=== PATIENT | female | born 1950 | race Caucasian/White ===

== ENCOUNTER 2019-03-06 19:44 | Inpatient (IN) ==
--- OUTSIDE RECORDS SUMMARY | 2019-03-06 19:47 | External Medical Summary | Continuity of Care Document ---
:1950 Author Name Everett Camilo, Provider Address Unavailable Unavailable , Care Team Providers Name Role Phone Unavailable Unavailable Unavailable PCP, NO Unavailable Unavailable Problems Active medical history not documented Allergies and Adverse Reactions Allergy history not documented Medications Medications not documented Procedures Procedures not documented Immunizations Immunizations not documented Plan of Treatment Planned Observations Planned Goals not documented Results No Known Results Results not documented
[2019-03-06 20:27] LABS: Basophils # (auto) 0.02 K/uL (0-0.2); Basophils % (auto) 0.3 %; Eosinophils # (auto) 0.07 K/uL (0-0.5); Eosinophils % (auto) 1.1 %; Hematocrit (blood only) 41.8 % (37-47); Hemoglobin 14.3 g/dL (12.0-16.0); Immature Granulocytes # (auto) 0.01 K/uL (0.00-0.02); Immature Granulocytes % (auto) 0.2 %; Lymphocytes # (auto) 0.47 K/uL (1.2-3.4); Lymphocytes % (auto) 7.1 %; Mean Corpuscular Hgb Conc 34.2 g/dL (32-36); Mean Corpuscular Volume 91.1 fL (80-100); Mean Platelet Volume 10.2 fL (7.4-10.4); Monocytes # (auto) 0.71 K/uL (0.11-0.59); Monocytes % (auto) 10.7 %; Neutrophils # (auto) 5.37 K/uL (1.4-6.5); Neutrophils % (auto) 80.6 %; Platelet Count 193 K/uL (130-400); RDW Coefficient of Variation 14.5 % (11.5-14.5); RDW Standard Deviation 48.4 fL (36.4-46.3); Red Blood Count 4.59 M/uL (4.2-5.4); White Blood Count 6.65 K/uL (4.8-10.8)
[2019-03-06 20:43] LABS: BUN Creatinine Ratio 9.7 (10-20); Blood Urea Nitrogen 8 mg/dl (7-18); Calcium 8.9 mg/dl (8.5-10.1); Carbon Dioxide 26 mmol/L (21-32); Chloride 103 mmol/L (98-107); Est GFR (African American) 84.6; Glucose 119 mg/dl (70-99); Potassium 3.5 mmol/L (3.5-5.1); Sodium 136 mmol/L (136-145)
[2019-03-06 21:05] LABS: Partial Thromboplastin Ratio 2.1; Prothrombin Time 61.3 Seconds (9.0-12.0)
[2019-03-06 21:08] LABS: INR 6.9 (0.9-1.1)
[2019-03-06 21:09] LABS: Partial Thromboplastin Time 56.4 Seconds (21.0-31.0)
[2019-03-06] MEDS ORDERED: IOVERSOL 100ml IV PRN (21:21)
--- NOTE | 2019-03-06 21:28 | XRay Report ---
XR chest 1V portable HISTORY: fall on coumadin COMPARISON: Chest 05/29/2011. FINDINGS: The lungs are clear. Cardiac silhouette is normal in size. No pleural effusions. No pneumot horax. IMPRESSION: No acute process. Electronically signed by: Brock Moore M.D. 03/06/2019 9:27 PM
--- NOTE | 2019-03-06 21:32 | XRay Report ---
XR lumbar spine min 4V routine CLINICAL HISTORY: fall. Low back pain. COMPARISON STUDY: None. FINDINGS: Moderate endplate compression deformity at L4 demonstrating up to 50% loss of height. There is mild superior endplate compression deformities at L1 and L2 as well as the visualized lower thora cic spine from T10 through T12. The lower lumbar spine facets are fused. The sacrum appears intact. G rade 1 anterolisthesis of L5 on S1. Mild disc space narrowing at L5-S1. IMPRESSION: Multiple compression deformities within the lower thoracic and lumbar spine as described above. These are technically age indeterminate but favor chronic findings. Electronically signed by: Brock Moore M.D. 03/06/2019 9:30 PM
--- NOTE | 2019-03-06 21:33 | XRay Report ---
XR pelvis 1-2V routine, XR femur LT 2V routine CLINICAL HISTORY: fall. Left hip pain. COMPARISON STUDY: None. FINDINGS: No fracture or dislocation within the pelvis or hips. The sacrum appears intact. The bones are osteopenic. No left knee effusion. No fractures within the left femur. Soft tissues are unremarka ble. IMPRESSION: No fracture or dislocation within the pelvis, hips, or left femur. Electronically signed by: Brock Moore M.D. 03/06/2019 9:32 PM
--- NOTE | 2019-03-06 21:34 | XRay Report ---
LEFT ELBOW 3 VIEWS HISTORY: Left elbow pain. fall COMPARISON: None. FINDINGS: There is no fracture or dislocation. Soft tissues are unremarkable. No elbow effusion. No r adiopaque foreign bodies. IMPRESSION: No fractures. Electronically signed by: Brock Moore M.D. 03/06/2019 9:33 PM
--- NOTE | 2019-03-06 21:36 | CT Scan Report ---
HEAD CT NONCONTRAST CT DOSE: HISTORY: fall on coumadin TECHNIQUE: Multiaxial CT images of the head were performed without the use of intravenous contrast. A utomated exposure control was utilized for this study. A dose lowering technique was utilized adheri ng to the principles of ALARA. Comparison: Head CT 11/25/2011. Findings: The paranasal sinuses and mastoid air cells are clear. The calvarium and skull base are int act. The ventricles and sulci are within normal limits. There is no mass, hematoma, midline shift, or acute infarct. Impression: No acute intracranial abnormality. Electronically signed by: Brock Moore M.D. 03/06/2019 9:35 PM
--- NOTE | 2019-03-06 21:40 | CT Scan Report ---
CERVICAL SPINE CT CT DOSE: 2472.60 mGy.cm HISTORY: fall on coumadin TECHNIQUE: Multiaxial CT images of the cervical spine were performed and reformatted in the sagittal and coronal plane without the use of contrast. A dose lowering technique was utilized adhering to th e principles of ALARA. COMPARISON: None. FINDINGS: No fractures. No subluxation. Prevertebral soft tissues and the C1-C2 interval are intact. No pneumothorax. Mild disc space narrowing at C4-C5. Moderate disc space narrowing at C5-C6 and C6-C7 . IMPRESSION: No fractures within the cervical spine. Electronically signed by: Brock Moore M.D. 03/06/2019 9:39 PM
--- NOTE | 2019-03-06 21:53 | CT Scan Report ---
ABDOMEN AND PELVIS CT WITH IV CONTRAST CT DOSE: HISTORY: fall on coumadin L flank bruising TECHNIQUE: Multiaxial CT images of the abdomen and pelvis were performed following the use of intrave nous contrast. A dose lowering technique was utilized adhering to the principles of ALARA. COMPARISON STUDY: Abdomen and pelvis CT 01/05/2009. FINDINGS: Moderate superior endplate compression deformity at L4 and mild superior endplate compressi on deformities at T11-L2. These are technically age indeterminate but favor old compression deformiti es. There is no paravertebral soft tissue swelling. A few bibasilar linear densities consistent with subsegmental atelectasis. No pneumoperitoneum. No pneumatosis. Mildly displaced left posterior 12th r ib fracture. The gallbladder, spleen, adrenal glands, and left kidney are unremarkable. Mild right pe rinephric fat stranding with heterogeneous enhancement within the right kidney. There is also urothel ial thickening within the right renal pelvis and right ureter. No hydronephrosis. There is mild bladd er wall thickening with adjacent fat stranding. Therefore, these findings are consistent with a cysti tis and right-sided pyelonephritis. There are a few small hypodense lesions within the liver which ar e similar to the prior study. These likely represent cysts. No retroperitoneal lymphadenopathy. Samantha l caliber abdominal aorta. There are 3 subcentimeter hyperenhancing foci within the tail the pancreas best seen on images 113, 120, and 126 with the largest measuring 5 mm. These are indeterminate and c ould represent normal pancreatic parenchyma. Subcentimeter pancreatic lesions could also have a simil ar appearance. Mild pelvic floor collapse. The uterus and bilateral adnexa are unremarkable. No bowel wall thickening or obstruction. Colonic diverticulosis. No evidence for diverticulitis. Normal appen sary. IMPRESSION: 1. A mildly displaced left 12th posterior rib fracture. 2. Right-sided pyelonephritis with an associated cystitis.. 3. There are 3 subcentimeter hyperenhancing foci within the tail the pancreas with the largest measur ing 5 mm. These are indeterminate but favor normal pancreatic parenchyma. However, subcentimeter panc reatic lesions are not excluded. Follow-up nonemergent pancreatic MRI is recommended for further eval uation. 4. Old compression deformities within the lower thoracic and lumbar spine. Electronically signed by: Brock Moore M.D. 03/06/2019 9:50 PM
[2019-03-06] MEDS ORDERED: cefTRIAXone SODIUM 1,000 MG/50 ML BAG IV STA (22:02)
[2019-03-06 22:22] LABS: Appearance Urine Cloudy (Clear); Bacteria Urine Automated Negative (Negative); Bilirubin Urine Negative (Negative); Color Urine Yellow; Epithelial Cell Urine Auto >30 /lpf (0-5); Glucose Urine UA Negative (Negative); Ketones Urine Trace (Negative); Leukocyte Esterase Urine 2+ (Negative); Nitrite Urine Negative (Negative); Specific Gravity Urine 1.033 (1.000-1.030); Urobilinogen Urine Negative (Negative); WBC Urine Automated >30 /hpf (0-5); pH Urine 7.5 (4.5-7.5)
[2019-03-06 22:25] LABS: Protein Urine 1+ (Negative)
--- NOTE | 2019-03-06 23:03 | Emergency Department Note ---
Entered by Janusz Rodriguez acting as a scribe for Ramakrishna Fischer History of Present Illness General Chief complaint: Back Injury/Pain Stated complaint: FEVER, FELL, HIT BACK Time Seen by Provider: 03/06/19 19:57 Source: patient History of Present Illness Provider complaint: Fall Onset (ago): day(s) 2 Location: back and left Maximum Pain Intensity: 9 Current Pain Intensity: 9 Relieved By: + none Exacerbated By: + movement Associated symptoms: + denies other symptoms (neck pain) and + fever/chills The patient is a 68 year old female who presents to the Emergency Room with complaints of a fall suffered 2 days ago. The patient states that she has had a fever due to a UTI and was disoriented when she fell. She notes she went to sit on the toilet when she fell and landed in the shower. She adds that her pain is mostly on her left side over her left upper abdomen and left chest. The patient reports currently being on Coumadin. She denies hitting her head. She also denies neck pain. No hematuria. She states she has been increasingly weak and having more pain with urination. Home Medications Home Medications Medication Instructions Recorded Confirmed Type Power To Sleep Pm 2 cap PO HS 05/27/18 03/06/19 History divalproex 250 mg PO QPM 05/27/18 03/06/19 History divalproex 500 mg PO QPM 05/27/18 03/06/19 History levothyroxine 75 mcg PO QAM 05/27/18 03/06/19 History oxcarbazepine [Trileptal] 300 tab PO BID 05/27/18 03/06/19 History warfarin 1 tab PO UD 05/27/18 03/06/19 History fluticasone propionate 2 spray INTRANASAL HS 03/06/19 03/06/19 History nitrofurantoin monohyd/m-cryst 100 mg PO BID 03/06/19 03/06/19 History Allergies Allergy/AdvReac Type Severity Reaction Status Date / Time No Known Allergies Allergy Verified 03/06/19 21:12 Past Med/Surg History Medical History Psychosis Cancer SKIN CANCER Deep vein thrombosis Hallucination Hearing deficit Hypothyroidism On home oxygen therapy NC OXYGEN AT NIGHT (UNSURE OF LITER) Peripheral neuropathy Pulmonary embolism Seizure LAST EPISODE (THIS YEAR/UNSURE OF DATE) ? SEIZURE TYPE>FOLLOWS WITH DR. PHOENIX. OLD RECORDS NOTE EPILEPSY Sleep apnea NO DEVICE USED NOW (CPAP USED IN PAST) Surgical History History of adenoidectomy History of bilateral tubal ligation History of colonoscopy History of tonsillectomy History of tooth extraction Family History Mother Family hx of colon cancer Social History Preferred Language: Vietnamese Communication Ability: Effective Beliefs That Will Affect Care: None Current Living Situation: Spouse Feels Safe at Home: Yes Smoking Status: Never smoker Second Hand Exposure: Yes ( A CHILD (PARENTS SMOKED)) Hx Alcohol Use: No Hx Substance Use: No Review of Systems See HPI for pertinent positives & negatives. and A total of 10 systems reviewed and were otherwise negative Physical Exam Vital Signs Vital Signs - 24 hr 03/06/19 19:50 03/06/19 21:36 Temperature 37.1 C Temperature Source Oral Sepsis Recent Fever Within 48 Hours No Sepsis New/Unexplained Change in Mental Status No Sepsis Action Taken by Nursing No Action Required Pulse Rate 93 H Pulse Rate [Finger] 89 Respiratory Rate 18 16 Respiratory Effort / Characteristics Non-Labored Spontaneous Respiratory Depth Normal Blood Pressure 124/72 Blood Pressure [Right Arm] 127/70 Blood Pressure Mean 89 Blood Pressure Mean [Right Arm] 89 Blood Pressure Position Sitting Pulse Oximetry 100 96 Oxygen Delivery Method Room Air Room Air Female: GENERAL: She is oriented to person, place, and time. She appears well-developed and well-nourished. She does not appear distressed. Obese HENT: Exam performed. Head: Normocephalic and atraumatic. Right Ear: External ear normal. No mastoid tenderness. Left Ear: External ear normal. No mastoid tenderness. Mouth/Throat: The oropharynx is clear and moist. No trismus in the jaw. No dental abscesses or uvula swelling. No oropharyngeal exudate or tonsillar abscesses. EYES: Conjunctivae and EOM are normal. Pupils are equal, round, and reactive to light. Right eye exhibits no discharge. Left eye exhibits no discharge. No scleral icterus. NECK: Normal range of motion. Neck supple. No JVD present. No spinous process tenderness present. No carotid bruit present. No rigidity. No tracheal deviation and normal range of motion present. No Brudzinski's sign and no Kernig's sign noted. CV: Normal rate, regular rhythm, normal heart sounds and intact distal pulses. There is no peripheral edema. Palpable radial pulses bue. PULM/CHEST: Effort normal and breath sounds normal. No respiratory distress. No stridor. She has no wheezes. She has no rales. Chest Wall: She exhibits no tenderness. ABD: The abdomen is soft. Bowel sounds are normal. She has no distension. No mass is present. There is no tenderness. There is no rebound, no guarding, no Fernandez's sign and no tenderness at McBurney's point. Rovsig negative MUSC/SKEL: Normal range of motion. There is no peripheral edema, tenderness or deformity. Bruising over her left flank. Pelvis is stable. LYMPH: No cervical adenopathy. NEURO: She is alert and oriented to person, place, and time. She has normal strength. No cranial nerve deficit or sensory deficit. Coordination and gait normal. GCS eye subscore is 4. GCS verbal subscore is 5. GCS motor subscore is 6. cerbellar tests wnl. SKIN: Skin is warm and dry. She is not diaphoretic. PSYCH: She has a normal mood and affect. Her behavior is normal. Judgment and thought content normal. Course 2000: The patient was evaluated in room A03. A complete history and physical exam was performed. 2200: Vital signs stable. Labs are consistent with UTI. Imaging shows a left- sided 12th rib fracture. It also shows polynephritis. Given the patient's sy mptoms of recurrent falls, reported fevers at home, and not improving UTI, the patient will be admitted for pyelonephritis. Rocephin 1 g IVPB given in the emergency department. Patient's INR is elevated 6.9. I discussed these findings with the admitting team Dr. Biswas who if we should give the patient any vitamin K, he and I both believe that there is no active bleeding we can hold the patient's Coumadin and recheck her INR in the morning. Patient is in agreement for admission. Administered Medications Discontinued Medications Ceftriaxone Sodium (Rocephin) 1,000 mg in 50 mls @ 100 mls/hr IV NOW STA Stop: 03/06/19 22:31 Last Infusion: 03/06/19 22:52 Dose: 0 mls/hr Documented by: [id number] Admin: 03/06/19 22:14 Dose: 100 mls/hr Documented by: [id number] Ioversol (Optiray 320 100ml) 94 ml IV ONCE PRN PRN Reason: Interaction Checking Stop: 03/10/19 21:20 Last Admin: 03/06/19 21:21 Dose: 94 ml Documented by: [id number] Medical Decision Making Medical Records Attestation: I reviewed the patient's medical records. Home Medications Current Medication List: was personally reviewed by mo Laboratory Data Attestation: I reviewed the patient's lab results. Result diagrams: 03/06/19 20:20 03/06/19 20:20 Lab Results 03/06/19 03/06/19 03/06/19 Range/Units 20:20 20:20 20:20 WBC 6.65 (4.8-10.8) K/uL RBC 4.59 (4.2-5.4) M/uL Hgb 14.3 (12.0-16.0) g/dL Hct 41.8 (37-47) % MCV 91.1 (80-100) fL MCH 31.2 (25-34) pg MCHC 34.2 (32-36) g/dL RDW Std Deviation 48.4 H (36.4-46.3) fL RDW Coeff of Benigno 14.5 (11.5-14.5) % Plt Count 193 (130-400) K/uL MPV 10.2 (7.4-10.4) fL Immature Gran % (Auto) 0.2 % Neut % (Auto) 80.6 % Lymph % (Auto) 7.1 % Preston % (Auto) 10.7 % Eos % (Auto) 1.1 % Baso % (Auto) 0.3 % Immature Gran # (Auto) 0.01 (0.00-0.02) K/uL Neut # (Auto) 5.37 (1.4-6.5) K/uL Lymph # (Auto) 0.47 L (1.2-3.4) K/uL Preston # (Auto) 0.71 H (0.11-0.59) K/uL Eos # (Auto) 0.07 (0-0.5) K/uL Baso # (Auto) 0.02 (0-0.2) K/uL PT 61.3 H (9.0-12.0) Seconds INR 6.9 H* (0.9-1.1) APTT 56.4 H* (21.0-31.0) Seconds PTT Ratio 2.1 Sodium 136 (136-145) mmol/L Potassium 3.5 (3.5-5.1) mmol/L Chloride 103 (98-107) mmol/L Carbon Dioxide 26 (21-32) mmol/L Anion Gap 7.0 (3-11) BUN 8 (7-18) mg/dl Creatinine 0.83 (0.6-1.2) mg/dl Est Cr Clr Drug Dosing Not Reportable Est GFR ( Amer) 84.6 Est GFR (Non-Af Amer) 73.0 BUN/Creatinine Ratio 9.7 L (10-20) Glucose 119 H (70-99) mg/dl Lactate (0.4-2.0) mmol/L Calcium 8.9 (8.5-10.1) mg/dl Urine Color Urine Appearance (Clear) Urine pH (4.5-7.5) Ur Specific Pierpont (1.000-1.030) Urine Protein (Negative) Urine Glucose (UA) (Negative) Urine Ketones (Negative) Urine Blood (Negative) Urine Nitrite (Negative) Urine Bilirubin (Negative) Urine Urobilinogen (Negative) Ur Leukocyte Esterase (Negative) Urine WBC (Auto) (0-5) /hpf Urine RBC (Auto) (0-4) /hpf U Hyaline Cast (Auto) (0-5) /lpf U Epithel Cells (Auto) (0-5) /lpf Urine Bacteria (Auto) (Negative) Ur Renal Epithelial Cell (0-5) /lpf 03/06/19 03/06/19 Range/Units 20:20 22:02 WBC (4.8-10.8) K/uL RBC (4.2-5.4) M/uL Hgb (12.0-16.0) g/dL Hct (37-47) % MCV (80-100) fL MCH (25-34) pg MCHC (32-36) g/dL RDW Std Deviation (36.4-46.3) fL RDW Coeff of Benigno (11.5-14.5) % Plt Count (130-400) K/uL MPV (7.4-10.4) fL Immature Gran % (Auto) % Neut % (Auto) % Lymph % (Auto) % Preston % (Auto) % Eos % (Auto) % Baso % (Auto) % Immature Gran # (Auto) (0.00-0.02) K/uL Neut # (Auto) (1.4-6.5) K/uL Lymph # (Auto) (1.2-3.4) K/uL Preston # (Auto) (0.11-0.59) K/uL Eos # (Auto) (0-0.5) K/uL Baso # (Auto) (0-0.2) K/uL PT (9.0-12.0) Seconds INR (0.9-1.1) APTT (21.0-31.0) Seconds PTT Ratio Sodium (136-145) mmol/L Potassium (3.5-5.1) mmol/L Chloride (98-107) mmol/L Carbon Dioxide (21-32) mmol/L Anion Gap (3-11) BUN (7-18) mg/dl Creatinine (0.6-1.2) mg/dl Est Cr Clr Drug Dosing Est GFR ( Amer) Est GFR (Non-Af Amer) BUN/Creatinine Ratio (10-20) Glucose (70-99) mg/dl Lactate 1.6 (0.4-2.0) mmol/L Calcium (8.5-10.1) mg/dl Urine Color Yellow Urine Appearance Cloudy A (Clear) Urine pH 7.5 (4.5-7.5) Ur Specific Pierpont 1.033 H (1.000-1.030) Urine Protein 1+ H (Negative) Urine Glucose (UA) Negative (Negative) Urine Ketones Trace H (Negative) Urine Blood 2+ H (Negative) Urine Nitrite Negative (Negative) Urine Bilirubin Negative (Negative) Urine Urobilinogen Negative (Negative) Ur Leukocyte Esterase 2+ H (Negative) Urine WBC (Auto) >30 H (0-5) /hpf Urine RBC (Auto) 10-30 H (0-4) /hpf U Hyaline Cast (Auto) 1-5 (0-5) /lpf U Epithel Cells (Auto) >30 H (0-5) /lpf Urine Bacteria (Auto) Negative (Negative) Ur Renal Epithelial Cell 5-10 H (0-5) /lpf Imaging Data Radiologist's Impression: Radiology results as stated below per my review and the radiologist's interpretation: XR pelvis 1-2V routine, XR femur LT 2V routine CLINICAL HISTORY: fall. Left hip pain. COMPARISON STUDY: None. FINDINGS: No fracture or dislocation within the pelvis or hips. The sacrum appears intact. The bones are osteopenic. No left knee effusion. No fractures within the left femur. Soft tissues are unremarkable. IMPRESSION: No fracture or dislocation within the pelvis, hips, or left femur. Electronically signed by: Brock Moore M.D. 03/06/2019 9:32 PM XR lumbar spine min 4V routine CLINICAL HISTORY: fall. Low back pain. COMPARISON STUDY: None. FINDINGS: Moderate endplate compression deformity at L4 demonstrating up to 50% loss of height. There is mild superior endplate compression deformities at L1 and L2 as well as the visualized lower thoracic spine from T10 through T12. The lower lumbar spine facets are fused. The sacrum appears intact. Grade 1 anterolisthesis of L5 on S1. Mild disc space narrowing at L5-S1. IMPRESSION: Multiple compression deformities within the lower thoracic and lumbar spine as described above. These are technically age indeterminate but favor chronic findings. Electronically signed by: Brock Moore M.D. 03/06/2019 9:30 PM XR pelvis 1-2V routine, XR femur LT 2V routine CLINICAL HISTORY: fall. Left hip pain. COMPARISON STUDY: None. FINDINGS: No fracture or dislocation within the pelvis or hips. The sacrum appears intact. The bones are osteopenic. No left knee effusion. No fractures within the left femur. Soft tissues are unremarkable. IMPRESSION: No fracture or dislocation within the pelvis, hips, or left femur. Electronically signed by: Brock Moore M.D. 03/06/2019 9:32 PM LEFT ELBOW 3 VIEWS HISTORY: Left elbow pain. fall COMPARISON: None. FINDINGS: There is no fracture or dislocation. Soft tissues are unremarkable. No elbow effusion. No radiopaque foreign bodies. IMPRESSION: No fractures. Electronically signed by: Brock Moore M.D. 03/06/2019 9:33 PM XR chest 1V portable HISTORY: fall on coumadin COMPARISON: Chest 05/29/2011. FINDINGS: The lungs are clear. Cardiac silhouette is normal in size. No pleural effusions. No pneumothorax. IMPRESSION: No acute process. Electronically signed by: Brock Moore M.D. 03/06/2019 9:[address] DOSE: 2472.60 mGy.cm HISTORY: fall on coumadin TECHNIQUE: Multiaxial CT images of the cervical spine were performed and reformatted in the sagittal and coronal plane without the use of contrast. A dose lowering technique was utilized adhering to the principles of ALARA. COMPARISON: None. FINDINGS: No fractures. No subluxation. Prevertebral soft tissues and the C1-C2 interval are intact. No pneumothorax. Mild disc space narrowing at C4-C5. Moderate disc space narrowing at C5-C6 and C6-C7. IMPRESSION: No fractures within the cervical spine. Electronically signed by: Brock Moore M.D. 03/06/2019 9:[address]AST CT DOSE: HISTORY: fall on coumadin TECHNIQUE: Multiaxial CT images of the head were performed without the use of intravenous contrast. Automated exposure control was utilized for this study. A dose lowering technique was utilized adhering to the principles of ALARA. Comparison: Head CT 11/25/2011. Findings: The paranasal sinuses and mastoid air cells are clear. The calvarium and skull base are intact. The ventricles and sulci are within normal limits. There is no mass, hematoma, midline shift, or acute infarct. Impression: No acute intracranial abnormality. Electronically signed by: Brock Moore M.D. 03/06/2019 9:35 PM ABDOMEN AND PELVIS CT WITH IV CONTRAST CT DOSE: HISTORY: fall on coumadin L flank bruising TECHNIQUE: Multiaxial CT images of the abdomen and pelvis were performed following the use of intravenous contrast. A dose lowering technique was utilized adhering to the principles of ALARA. COMPARISON STUDY: Abdomen and pelvis CT 01/05/2009. FINDINGS: Moderate superior endplate compression deformity at L4 and mild superior endplate compression deformities at T11-L2. These are technically age indeterminate but favor old compression deformities. There is no paravertebral soft tissue swelling. A few bibasilar linear densities consistent with subsegmental atelectasis. No pneumoperitoneum. No pneumatosis. Mildly displaced left posterior 12th rib fracture. The gallbladder, spleen, adrenal glands, and left kidney are unremarkable. Mild right perinephric fat stranding with heterogeneous enhancement within the right kidney. There is also urothelial thickening within the right renal pelvis and right ureter. No hydronephrosis. There is mild bladder wall thickening with adjacent fat stranding. Therefore, these findings are consistent with a cystitis and right-sided pyelonephritis. There are a few small hypodense lesions within the liver which are similar to the prior study. These likely represent cysts. No retroperitoneal lymphadenopathy. Normal caliber abdominal aorta. There are 3 subcentimeter hyperenhancing foci within the tail the pancreas best seen on images 113, 120, and 126 with the largest measuring 5 mm. These are indeterminate and could represent normal pancreatic parenchyma. Subcentimeter pancreatic lesions could also have a similar appearance. Mild pelvic floor collapse. The uterus and bilateral adnexa are unremarkable. No bowel wall thickening or obstruction. Colonic diverticulosis. No evidence for diverticulitis. Normal appendix. IMPRESSION: 1. A mildly displaced left 12th posterior rib fracture. 2. Right-sided pyelonephritis with an associated cystitis.. 3. There are 3 subcentimeter hyperenhancing foci within the tail the pancreas with the largest measuring 5 mm. These are indeterminate but favor normal pancreatic parenchyma. However, subcentimeter pancreatic lesions are not excluded. Follow-up nonemergent pancreatic MRI is recommended for further evaluation. 4. Old compression deformities within the lower thoracic and lumbar spine. Electronically signed by: Brock Moore M.D. 03/06/2019 9:50 PM Blood Pressure Blood Pressure Findings: Normal blood pressure MDM Narrative Vital signs stable. Labs are consistent with UTI. Imaging shows a left-sided 12th rib fracture. It also shows polynephritis. Given the patient's symptoms of recurrent falls, reported fevers at home, and not improving UTI, the patient will be admitted for pyelonephritis. Rocephin 1 g IVPB given in the emergency department. Patient's INR is elevated 6.9. I discussed these findings with the admitting team Dr. Biswas who if we should give the patient any vitamin K, he and I both believe that there is no active bleeding we can hold the patient's Coumadin and recheck her INR in the morning. Patient is in agreement for admi ssion. Impression & Plan Pyelonephritis, Fracture of rib, Recurrent falls Discharge Plan Visit Data *Final* Discharge Date/Time: 03/06/19 23:20 Chief Complaint: Back Injury/Pain Stated Complaint: FEVER, FELL, HIT BACK ED Provider: Ramakrishna Fischer Discharge Problem: Pyelonephritis, Fracture of rib, Recurrent falls Patient Disposition: Admitted As Inpatient Discharge Instructions Interventions: ED Discharge Assessment Last Done: 03/06/19 23:20 Discharge Problem: Fracture of rib Qualifiers: Encounter type: initial encounter Fracture type: closed The scribe's documentation has been prepared under my direction and personally reviewed by me in its entirety. I confirm that the note above accurately reflects all work, treatment, procedures, and medical decision making performed by me.
[2019-03-06] MEDS ORDERED: ACETAMINOPHEN 325 MG TAB PO PRN (23:26)
[2019-03-06] MEDS ORDERED: HYDROmorphone INJ 0.5 MG/0.5 ML SYR IV PRN (23:26)
[2019-03-06] MEDS ORDERED: ONDANSETRON INJ 2 MG/ML 2 ML VIAL IV PRN (23:26)
[2019-03-06] MEDS ORDERED: DIVALPROEX EXTENDED RELEASE 250 MG TABCR PO STA (23:26)
[2019-03-07] MEDS: OXYCODONE HCL IR 5 MG TAB (IMMEDIATE RELEASE) PO PRN ×3 (00:10→15:24)
[2019-03-07] MEDS: OXcarbazepine 150 MG TABLET PO SCH ×3 (00:10→21:56)
--- NOTE | 2019-03-07 02:23 | History and Physical Report ---
DATE OF ADMISSION: 03/06/2019 CHIEF COMPLAINT: Fall and left flank pain and fever. HISTORY OF PRESENT ILLNESS: This is a 68-year-old female with past medical history significant for hypothyroidism, obstructive sleep apnea, venous insufficiency, obesity, B12 deficiency, epilepsy, history of pulmonary embolism, history of DVT on chronic anticoagulation, who last Friday was having fever and urinary symptoms, found to have UTI and on she was feeling disoriented and when she went to bathroom, on the commode she slipped and fell and there was a holding gokul in the bathroom, on which she fell on the left side. Since then she is having a lot of pain. She has given urine sample to the family doctor and she was prescribed nitrofurantoin, which started on Friday, and she has followup appointment with the family doctor on friday, but she is having lot of pain .Any coughing, sneezing and moving is bringing lot of pain in the left lower rib region and she is having difficulty getting up. She is ambulating okay. Her brought her to the hospital and imaging study shows right side pyelonephritis and also possible left 12th posterior rib fracture. Otherwise, the patient is resting comfortably, hemodynamically stable, requesting for pain medication. Currently afebrile and hemodynamically stable. Denies any dizziness, chest pain. No shortness of breath, no cough, no headache, no blurred vision, no earache, no runny nose, no sore throat, no difficulty swallowing. Appetite is okay. No nausea, no abdominal pain, somewhat constipated. No blood in the stool, no black stools, no hematuria. No swelling in the legs, no rash. ALLERGIES: AMOXICILLIN, ACETAMINOPHEN, AND CODEINE. PAST MEDICAL HISTORY: As mentioned above. PAST SURGICAL HISTORY: Colonoscopy, ligation of oviduct, tonsillectomy. MEDICATIONS: The patient is on nitrofurantoin 100 mg 1 capsule b.i.d., Flonase 2 sprays in each nostril daily, Trileptal 300 mg p.o. b.i.d., Depakote ER 750 mg p.o. daily, Coumadin 10 mg as directed, levothyroxine 75 mcg p.o. daily, Tylenol as needed. FAMILY HISTORY: Significant for mother had colon cancer, dementia. Father had emphysema. Paternal grandmother had colon cancer. SOCIAL HISTORY: , lives with . No smoking, no alcohol, no drug use. REVIEW OF SYMPTOMS: As per HPI. Rest of the review of systems negative. PHYSICAL EXAMINATION: GENERAL: The patient is of moderate build, not in acute distress. VITAL SIGNS: Temperature 37.1, pulse 89, respiratory rate 16, blood pressure 127/70, oxygen 96% room air. HEENT: No pallor, no icterus. Pupils equal, round, and reactive to light. NECK: No JVD, no neck masses, no carotid bruit. CARDIOVASCULAR: S1, S2 heard, regular rate and rhythm, no murmur, no gallop. RESPIRATORY SYSTEM: Normal AP diameter. No accessory muscle use. No wheezing, no crackles. ABDOMEN: Soft, bowel sounds present, nontender. No distention. Bruise seen on the left lower rib cage region. CENTRAL NERVOUS SYSTEM: Cranial nerves II-XII grossly intact. Nonfocal. EXTREMITIES: Mild edema, no erythema seen. LABORATORY DATA: WBC 6.6, hemoglobin 14.3, hematocrit 41.8, platelets 193. PTT 61.3, INR 6.9, APTT 56.4. Sodium 136, potassium 3.5, chloride 103, bicarbonate 26, BUN 8, creatinine 0.8, serum glucose 119. Lactic acid 1.6, calcium 8.9. Urine looks cloudy, leukocyte esterase positive. IMAGING DATA: Pelvic x-ray, no acute findings. Lumbar spine x-ray, mild compression deformities of the lower thoracic and lumbar spine technically,indeterminate, but mostly chronic findings. Femur x ray no fracture or dislocation left femur. Elbow x-ray of the left, no fractures. Chest x-ray, no acute process. Cervical spine CT, no acute process. CT of the head, no acute intracranial abnormality. CT of abdomen and pelvis, mildly displaced left 12th posterior rib fracture, right-sided pyelonephritis with evidence of some cystitis. Three subcentimeter hyperenhancing foci within the tail of the pancreas, the largest measuring 5 mm. These are indeterminate, but favor normal pancreatic parenchyma; however subcentimeter pancreatic lesions are not excluded. Followup nonemergent pancreatic MRI is recommended for further evaluation. Old compression deformities within the lower thoracic and lumbar spine. ASSESSMENT AND PLAN: This is a 68-year-old female who presents with urinary tract infection, fall at home, and found to have right pyelonephritis and possible right 12th rib fracture. 1. Mechanical fall, possibly from urinary tract infection. Imaging studies shows possible chronic compression fracture of the lower thoracic and lumbar spine and also mildly displaced left 12th posterior rib fracture. We will get a rib x-ray. Pain control with IV Dilaudid p.r.n. and oxycodone p.r.n. PT/OT. Monitor on the medical floor. 2. Right-sided pyelonephritis with associated cystitis. Ongoing symptoms since last Friday. Started Macrobid last Friday. Outpatient cultures showed E. coli pansensitive. Rocephin was given in the ER, which she will continue. Will also follow cultures drawn in the ER. Follow the response. 3. History of deep venous thrombosis and pulmonary embolism, on Coumadin. INR 6.9. We will hold Coumadin and follow the repeat labs. No obvious signs of bleeding. Hemoglobin is stable. 4. Hypothyroidism. Continue Synthroid. 5. Obstructive sleep apnea. CPAP. 6. History of epilepsy. Continue Trileptal and Depakote. 7. Pancreatic lesion on Ct scan. Needs follow up with MRI. 8. Deep venous thrombosis prophylaxis, sequential compression devices for now. INR is supratherapeutic. DISPOSITION: Admit to medical floor. Expect to discharge home and follow with family doctor. PT and OT prior to discharge. Social Service to help with discharge planning. Code status, full code. MTDD
[2019-03-07] MEDS: LEVOTHYROXINE SODIUM 75 MCG TABLET PO SCH (06:03)
[2019-03-07 06:33] LABS: Basophils # (auto) 0.02 K/uL (0-0.2); Basophils % (auto) 0.3 %; Eosinophils # (auto) 0.04 K/uL (0-0.5); Eosinophils % (auto) 0.6 %; Hematocrit (blood only) 38.4 % (37-47); Hemoglobin 13.2 g/dL (12.0-16.0); Immature Granulocytes # (auto) 0.01 K/uL (0.00-0.02); Immature Granulocytes % (auto) 0.2 %; Lymphocytes % (auto) 12.9 %; Mean Corpuscular Hgb Conc 34.4 g/dL (32-36); Mean Corpuscular Volume 89.9 fL (80-100); Mean Platelet Volume 10.1 fL (7.4-10.4); Monocytes # (auto) 0.87 K/uL (0.11-0.59); Neutrophils # (auto) 4.46 K/uL (1.4-6.5); Platelet Count 177 K/uL (130-400); RDW Coefficient of Variation 14.6 % (11.5-14.5); RDW Standard Deviation 47.5 fL (36.4-46.3); Red Blood Count 4.27 M/uL (4.2-5.4)
[2019-03-07 06:53] LABS: Prothrombin Time 44.2 Seconds (9.0-12.0)
[2019-03-07 07:05] LABS: INR 4.8 (0.9-1.1)
[2019-03-07 07:22] LABS: BUN Creatinine Ratio 12.2 (10-20); Calcium 8.5 mg/dl (8.5-10.1); Est GFR (Non-African American) 92.3; Magnesium 2.1 mg/dl (1.8-2.4); Potassium 4.1 mmol/L (3.5-5.1)
--- NOTE | 2019-03-07 07:35 | XRay Report ---
XR ribs BI min 3V CLINICAL HISTORY: rib fractures. Bilateral rib pain. COMPARISON STUDY: Abdomen and pelvis CT 03/06/2019. FINDINGS: The patient's known left posterior 12th rib fracture is not well visualized due to the over lying bowel gas. No additional acute rib fractures identified. There are old, healed left lateral rib fractures. The visualized lungs appear clear. No pneumothorax. No pleural effusions. The heart is no rmal in size. IMPRESSION: The patient's known left posterior 12th rib fracture is not well visualized due to overl alee bowel gas. Electronically signed by: Brock Moore M.D. 03/07/2019 7:34 AM
--- NOTE | 2019-03-07 17:39 | Hospitalist Progress Note ---
Date of Service March 07, 2019 Assessment & Plan (1) Fall: . Mechanical fall, After losing balance and bathroom Patient had severe urinary symptoms, dysuria, acid with nausea vomiting Lost her balance with attempted sitting on toilet and fell on the floor hitting shower rail, Ribs series x-ray: shows possible chronic compression fracture of the lower thoracic and lumbar spine and also mildly displaced left 12th posterior rib fracture. Continue pain control, ordered for Lidoderm patch, incentive spirometry (2) Fracture of rib: Mildly displaced left 12th posterior rib fracture secondary to fall Pain control, ordered Lidoderm patch, incentive spirometry (3) Pyelonephritis: (4) UTI (urinary tract infection): Ongoing urinary discomfort urgency frequency at home Seen at clinic: Outpatient culture showed E. coli pansensitive Was started on Macrobid, with no improvement of symptoms CT abdomen pelvis shows right-sided pyelonephritis with associated cystitis . Right-sided pyelonephritis with associated cystitis. Continue on IV Rocephin Remains afebrile, normal white count, no nausea vomiting Patient reports of improvement of urinary symptoms since yesterday Urine culture obtained in ER, will follow the report (5) Elevated INR: History of DVT, on chronic Coumadin Presented with elevated INR 6.1 Coumadin kept on hold: Follow PT/INR No evidence of active bleeding noted (6) History of DVT (deep vein thrombosis): Coumadin kept on hold for elevated INR CODE STATUS: Full code Disposition: Lives at home with , independent in ADLs Expected to be discharged home when medically stable Subjective Patient sitting up on chair, States she does not feel any pain as long as she is not moving Fever chills, denies of any urinary symptoms, no nausea vomiting or abdominal pain Physical Exam 2 Constitutional: WD/WN, vitals as above no acute distress Eyes: + anicteric sclerae ENMT: external ear and nose normal, oropharynx normal Neck: trachea midline, no thyromegaly Respiratory: normal respiratory effort, lungs clear to auscultation Cardiovascular: RRR, no murmur, no edema Gastrointestinal (Abdomen): normal bowel sounds, soft, nontender, no hepatosplenomegaly Musculoskeletal: Linear dark ecchymotic bruise on the left lower back approximately at the level of the 12th rib, no skin breakdown noted Of tenderness noted no fluctuation no erythema Skin: Trauma: + hematoma (Linear ecchymosis on lower back) Neurologic: PERRL, EOMI, accommodation nl, no face palsy, no dysarthria Psychiatric: A+Ox3, euthymic affect Results & Data Vital Signs (Past 12 Hours) Vital Signs Temp Pulse Resp BP Pulse Ox 03/07/19 15:01 37.6 C H 88 16 126/86 95 03/07/19 07:19 37.9 C H 87 18 142/86 H 95 (1) Fracture of rib Encounter type: initial encounter Fracture type: closed
[2019-03-07] MEDS: LIDOCAINE 5% 1 PATCH TD SCH (18:23)
[2019-03-07] MEDS: FLUTICASONE PROPIONATE NA SPR 16 GM BTL SCH (21:55)
[2019-03-07] MEDS: DIVALPROEX EXTENDED RELEASE 250 MG TABCR PO SCH (21:56)
[2019-03-07] MEDS: DIVALPROEX EXTENDED RELEASE 500 MG TAB PO SCH (21:56)
[2019-03-07] MEDS ORDERED: PNEUMOCOCCAL POLYSACCHARIDES 25 MCG/0.5 ML VIAL/SYR IM ONE (22:00)
[2019-03-07] MEDS ORDERED: cefTRIAXone SODIUM 2,000 MG in DEXTROSE 5% 50 ML IV SCH (22:00)
[2019-03-07] MEDS ORDERED: PNEUMOCOCCAL ADMINISTRATION CHARGE ONE (22:00)
[2019-03-08] MEDS: LEVOTHYROXINE SODIUM 75 MCG TABLET PO SCH (05:44)
[2019-03-08] MEDS: OXYCODONE HCL IR 5 MG TAB (IMMEDIATE RELEASE) PO PRN (06:14)
[2019-03-08 07:08] LABS: INR 2.7 (0.9-1.1); Prothrombin Time 25.4 Seconds (9.0-12.0)
[2019-03-08] MEDS ORDERED: PNEUMOCOCCAL POLYSACCHARIDES 25 MCG/0.5 ML VIAL/SYR IM ONE (08:00)
[2019-03-08] MEDS ORDERED: PNEUMOCOCCAL ADMINISTRATION CHARGE ONE (08:00)
[2019-03-08] MEDS ORDERED: CYCLOBENZAPRINE HCL 10 MG TAB PO PRN (10:22)
[2019-03-08] MEDS: LIDOCAINE 5% 1 PATCH TD SCH (10:46)
[2019-03-08] MEDS: OXcarbazepine 150 MG TABLET PO SCH ×2 (10:47→20:21)
[2019-03-08] MEDS ORDERED: KETOROLAC TROMETHAMINE 15 MG/ML VIAL IV PRN (11:07)
[2019-03-08] MEDS: ACETAMINOPHEN 1,000 MG/100 ML VIAL IV SCH ×2 (12:04→19:54)
--- NOTE | 2019-03-08 18:01 | Hospitalist Progress Note ---
Date of Service March 08, 2019 Assessment & Plan (1) Fall: . Mechanical fall, After losing balance and bathroom Patient had severe urinary symptoms, dysuria, acid with nausea vomiting Lost her balance with attempted sitting on toilet and fell on the floor hitting shower rail, Ribs series x-ray: shows possible chronic compression fracture of the lower thoracic and lumbar spine and also mildly displaced left 12th posterior rib fracture. Will be discharged home tomorrow with pain control (2) Fracture of rib: Mildly displaced left 12th posterior rib fracture secondary to fall To be on pain control, PT OT (3) Pyelonephritis: (4) UTI (urinary tract infection): Ongoing urinary discomfort urgency frequency at home Seen at clinic: Outpatient culture showed E. coli pansensitive Was started on Macrobid, with no improvement of symptoms CT abdomen pelvis shows right-sided pyelonephritis with associated cystitis . Right-sided pyelonephritis with associated cystitis. Continue on IV Rocephin Remains afebrile, normal white count, no nausea vomiting Patient reports of improvement of urinary symptoms since yesterday Urine culture obtained in ER: Shows 3 types of growth possible contamination, needs repeat urine culture ordered (5) Elevated INR: History of DVT, on chronic Coumadin Presented with elevated INR 6.1 Coumadin kept on hold: INR improved to 2.9: Continue to hold Coumadin, will begin symptomatic lower dose (6) History of DVT (deep vein thrombosis): INR therapeutic CODE STATUS: Full code Disposition: Plan to discharge home tomorrow with home PT Update given to patient's at bedside Subjective Lower back pain, worse with movement Does not feel Lidoderm patch did any good Ordered for Flexeril for muscle spasm No fever or chills Patient is very eager to be discharged from hospital as soon as possible Physical Exam Constitutional: WD/WN, vitals as above no acute distress Eyes: + anicteric sclerae ENMT: external ear and nose normal, oropharynx normal Neck: trachea midline, no thyromegaly Respiratory: normal respiratory effort, lungs clear to auscultation Cardiovascular: RRR, no murmur, no edema Gastrointestinal (Abdomen): normal bowel sounds, soft, nontender, no hepatosplenomegaly Skin: Trauma: + hematoma (Linear ecchymosis on lower back) Neurologic: PERRL, EOMI, accommodation nl, no face palsy, no dysarthria Psychiatric: A+Ox3, euthymic affect Results & Data Vital Signs (Past 12 Hours) Vital Signs Temp Pulse Pulse Resp BP Pulse Ox 03/08/19 15:20 36.8 C 80 16 118/83 95 03/08/19 08:00 37.4 C 72 14 127/72 97 (1) Fracture of rib Encounter type: initial encounter Fracture type: closed
[2019-03-08] MEDS: FLUTICASONE PROPIONATE NA SPR 16 GM BTL SCH (20:20)
[2019-03-08] MEDS: DIVALPROEX EXTENDED RELEASE 250 MG TABCR PO SCH (20:21)
[2019-03-08] MEDS: DIVALPROEX EXTENDED RELEASE 500 MG TAB PO SCH (20:21)
[2019-03-08] MEDS ORDERED: cefTRIAXone SODIUM 1,000 MG in DEXTROSE 5% 50 ML IV SCH (22:00)
[2019-03-09] MEDS: ACETAMINOPHEN 1,000 MG/100 ML VIAL IV SCH (04:10)
[2019-03-09] MEDS: LEVOTHYROXINE SODIUM 75 MCG TABLET PO SCH (05:40)
[2019-03-09 07:39] LABS: INR 1.6 (0.9-1.1); Prothrombin Time 15.8 Seconds (9.0-12.0)
[2019-03-09] MEDS: OXcarbazepine 150 MG TABLET PO SCH (08:59)
[2019-03-09] MEDS: LIDOCAINE 5% 1 PATCH TD SCH (08:59)
[2019-03-09] MEDS ORDERED: WARFARIN SOD 1 MG TAB PO STA (11:03)
[2019-03-09] MEDS ORDERED: CIPROFLOXACIN 500 MG TAB PO SCH (11:15)
[2019-03-09] MEDS ORDERED: AMOXICILLIN/CLAVULANATE 875 MG TAB PO ONE (11:46)
--- NOTE | 2019-03-09 16:59 | Discharge Summary ---
Date of Service March 09, 2019 Admission HPI Per Admitting Provider DICTATED BY: Dakota Garcia MD DATE OF ADMISSION: 03/06/2019 CHIEF COMPLAINT: Fall and left flank pain and fever. HISTORY OF PRESENT ILLNESS: This is a 68-year-old female with past medical history significant for hypothyroidism, obstructive sleep apnea, venous insufficiency, obesity, B12 deficiency, epilepsy, history of pulmonary embolism, history of DVT on chronic anticoagulation, who last Friday was having fever and urinary symptoms, found to have UTI and on she was feeling disoriented and when she went to bathroom, on the commode she slipped and fell and there was a holding gokul in the bathroom, on which she fell on the left side. Since then she is having a lot of pain. She has given urine sample to the family doctor and she was prescribed nitrofurantoin, which started on Friday, and she has followup appointment with the family doctor on coming Friday, but she is having lot of pain .Any coughing, sneezing and moving is bringing lot of pain in the left lower rib region and she is having difficulty getting up. She is ambulating okay. Her brought her to the hospital and imaging study shows right side pyelonephritis and also possible left 12th posterior rib fracture. Otherwise, the patient is resting comfortably, hemodynamically stable, requesting for pain medication. Currently afebrile and hemodynamically stable. Denies any dizziness, chest pain. No shortness of breath, no cough, no headache, no blurred vision, no earache, no runny nose, no sore throat, no difficulty swallowing. Appetite is okay. No nausea, no abdominal pain, somewhat constipated. No blood in the stool, no black stools, no hematuria. No swelling in the legs, no rash. Principal Diagnosis FALL /RIB FRACTURE /UTI Discharge Exam Constitutional WD/WN, vitals as above no acute distress Eyes + anicteric sclerae ENMT external ear and nose normal, oropharynx normal Neck trachea midline, no thyromegaly Respiratory normal respiratory effort, lungs clear to auscultation Cardiovascular RRR, no murmur, no edema Gastrointestinal (Abdomen) normal bowel sounds, soft, nontender, no hepatosplenomegaly Skin Trauma: + hematoma (Linear ecchymosis on lower back) Neurologic PERRL, EOMI, accommodation nl, no face palsy, no dysarthria Psychiatric A+Ox3, euthymic affect Discharge Data Allergies Allergy/AdvReac Type Severity Reaction Status Date / Time No Known Allergies Allergy Verified 03/06/19 21:12 Consultations 03/06/19 22:02 ED Decision to Admit Stat 03/06/19 23:26 Consult Case Management - Discharge Planning Routine Ordered Studies 03/06/19 20:07 CT abd pelvis IV con only Stat CT head/brain wo con Stat 03/06/19 20:08 CT cervical spine wo con Stat Hospital Course (1) Fall: . Mechanical fall, After losing balance and bathroom Patient had severe urinary symptoms, dysuria, acid with nausea vomiting Lost her balance with attempted sitting on toilet and fell on the floor hitting shower rail, Ribs series x-ray: shows possible chronic compression fracture of the lower thoracic and lumbar spine and also mildly displaced left 12th posterior rib fracture. pain is well controlled today to be discharged home (2) Fracture of rib: Mildly displaced left 12th posterior rib fracture secondary to fall was getting muscle spasm paon with movement improved with flexeril not requiring narcotics pain well controlled with PRN tylenol (3) Pyelonephritis: (4) UTI (urinary tract infection): Ongoing urinary discomfort urgency frequency at home Seen at clinic: Outpatient culture showed E. coli pansensitive Was started on Macrobid, with no improvement of symptoms CT abdomen pelvis shows right-sided pyelonephritis with associated cystitis . Right-sided pyelonephritis with associated cystitis. treated with IV Rocephin Remains afebrile, normal white count, no nausea vomiting Patient reports of improvement of urinary symptoms since yesterday Urine culture obtained in ER: Shows 3 types of growth possible contamination, repeat urine culture ordered-report pending will be discharged with PO Augmentin (5) Elevated INR: History of DVT, on chronic Coumadin Presented with elevated INR 6.1 Coumadin kept on hold: INR improved to <2 Coumadin resumed (6) History of DVT (deep vein thrombosis): coumadin CODE STATUS: Full code Disposition: discharged home today Total Time Total Time Spent Total Time Spent (In Minutes): APPROX 40 MINS Total Time Includes: Examination of the Patient, Discharge Planning and Medication Reconciliation Discharge Plan Discharge Items Patient Disposition: Home - Self-Care Reason For Visit: FALL, LEFT FLANK PAIN Discharge Diagnosis: FALL /RIB FRACTURE /UTI Discharge Goals: Decrease discomfort Activity: As commented below Activity Comment: TOLERATED Lifting: No more than 5 pounds Lifting Comment: For 2 weeks Non-emergency contact: Primary Care Provider Call non-emergency contact if: you have any medication questions Follow-up/Referrals: Grady Fu DO [Primary Care Provider] - 03/15/19 2:45 pm Diet: Heart Healthy Addtl Provider Instructions: Hospital follow-up with Dr. Grady Fu on 03/15/2019 at 2:45 PM Do not lift more than 5 pounds for the next 10-14 days New medication: Flexeril/Cyclobenzaprine (muscle relaxant )10 mg 1 tablet by mouth 3 times daily for 2 weeks Lab work: PT/INR check on 03/15/2019 Prescriptions: New cyclobenzaprine 10 mg Tablet 10 mg PO TID PRN (Reason: PAIN) Qty: 60 RF: 0 Continued oxcarbazepine [Trileptal] 150 mg Tablet 300 tab PO BID RF: 0 divalproex 250 mg Tablet,Delayed Release (Dr/Ec) 250 mg PO QPM RF: 0 warfarin 10 mg Tablet 1 tab PO UD RF: 0 divalproex 500 mg Tablet,Delayed Release (Dr/Ec) 500 mg PO QPM RF: 0 levothyroxine 75 mcg Capsule 75 mcg PO QAM RF: 0 Power To Sleep Pm 2 cap PO HS RF: 0 fluticasone propionate 50 mcg/actuation spray,suspension 2 spray intranasal HS RF: 0 Discontinued nitrofurantoin monohyd/m-cryst 100 mg capsule 100 mg PO BID RF: 0 Stand-Alone Forms: [facility], [facility] Discharge Orders: Discharge Order (Routine); Ordered 03/09/19 Ordered By: Tamia Acosta Admission Data Admit Date/Time: 03/06/19 22:45 Attending Provider: Tamia Acosta Admit Provider: Dakota Garcia Primary Care Provider: Grady Fu Other Providers: Dakota Garcia Service: Medical Other Interventions: Discharge Summary Assessment (RN) Last Done: 03/09/19 11:28 DC Date/Time DO NOT enter until pt leaves facility: 03/09/19 12:22
== END 2019-03-09 12:22 | disposition home or self-care (01) | DRG 206 ==
LOC: ED 19:44 → 3W 22:45
DX: Z86.718 Personal history of other venous thrombosis and embolism; E66.9 Obesity, unspecified; Z85.828 Personal history of other malignant neoplasm of skin; G47.33 Obstructive sleep apnea (adult) (pediatric); Z88.1 Allergy status to other antibiotic agents; N39.0 Urinary tract infection, site not specified; W18.11XA Fall from or off toilet without subsequent striking against object, initial encounter; Y92.012 Bathroom of single-family (private) house as the place of occurrence of the external cause; G62.9 Polyneuropathy, unspecified; G40.909 Epilepsy, unspecified, not intractable, without status epilepticus; Z86.711 Personal history of pulmonary embolism; E03.9 Hypothyroidism, unspecified; K86.9 Disease of pancreas, unspecified; Z79.01 Long term (current) use of anticoagulants; Z80.0 Family history of malignant neoplasm of digestive organs; S22.31XA Fracture of one rib, right side, initial encounter for closed fracture

== ENCOUNTER 2020-11-12 08:36 | Inpatient (IN) ==
[2020-11-12] MEDS ORDERED: SODIUM CHLORIDE 0.9% 1000ML 1,000 ML IV ONE (09:04)
[2020-11-12 09:26] LABS: Basophils # (auto) 0.02 K/uL (0-0.2); Basophils % (auto) 0.2 %; Hemoglobin 14.8 g/dL (12.0-16.0); Immature Granulocytes # (auto) 0.04 K/uL (0.00-0.02); Immature Granulocytes % (auto) 0.3 %; Lymphocytes # (auto) 0.61 K/uL (1.2-3.4); Lymphocytes % (auto) 4.9 %; Mean Corpuscular Hemoglobin 31.6 pg (25-34); Mean Corpuscular Hgb Conc 34.4 g/dL (32-36); Mean Corpuscular Volume 91.9 fL (80-100); Mean Platelet Volume 9.9 fL (7.4-10.4); Monocytes % (auto) 9.7 %; Neutrophils # (auto) 10.51 K/uL (1.4-6.5); Neutrophils % (auto) 84.9 %; Platelet Count 267 K/uL (130-400); RDW Standard Deviation 46.7 fL (36.4-46.3); Red Blood Count 4.68 M/uL (4.2-5.4); White Blood Count 12.38 K/uL (4.8-10.8)
[2020-11-12 09:35] LABS: INR 3.1 (0.9-1.1); Prothrombin Time 28.8 Seconds (9.0-12.0)
[2020-11-12 09:39] LABS: Appearance Urine Clear (Clear); Bacteria Urine Automated Negative (Negative); Bilirubin Urine Negative (Negative); Blood Urine Negative (Negative); Cast Urine Automated 0 /lpf (0-5); Color Urine Dark Yellow; Epithelial Cell Urine Auto 0-5 /lpf (0-5); Glucose Urine UA Negative (Negative); Ketones Urine Trace (Negative); Leukocyte Esterase Urine Negative (Negative); Nitrite Urine Negative (Negative); Protein Urine 2+ (Negative); RBC Urine Automated 0-4 /hpf (0-4); Specific Gravity Urine 1.027 (1.000-1.030); Urobilinogen Urine Negative (Negative); pH Urine 5.5 (4.5-7.5)
[2020-11-12 09:44] LABS: Alanine Aminotransferase 27 U/L (12-78); Albumin Level 3.6 gm/dl (3.4-5.0); Aspartate Aminotransferase 34 U/L (15-37); BUN Creatinine Ratio 12.7 (10-20); Blood Urea Nitrogen 11 mg/dl (7-18); Calcium 9.1 mg/dl (8.5-10.1); Carbon Dioxide 22 mmol/L (21-32); Chloride 107 mmol/L (98-107); Est GFR (African American) 75.6; Est GFR (Non-African American) 65.2; Glucose 118 mg/dl (70-99); Potassium 3.9 mmol/L (3.5-5.1); Sodium 136 mmol/L (136-145)
--- NOTE | 2020-11-12 09:44 | XRay Report ---
SINGLE VIEW CHEST CLINICAL HISTORY: Generalized weakness. FINDINGS: An AP, portable, upright chest radiograph is compared to study dated 03/06/2019. Correlation is made with chest CT dated 11/14/2007. The heart is mildly enlarged noting atherosclerotic calcificat ion of the thoracic aorta. There is pulmonary vascular congestion. Chronic interstitial thickening is similar to previous. No airspace consolidation or large pleural effusion is identified. No large ple ural effusion or pneumothorax is seen. The skeletal structures are osteopenic. The bony thorax is yoon ssly intact. IMPRESSION: Mild pulmonary vascular congestion. ACT 112: Negative or not required by law. Electronically signed by: Janusz Casillas M.D. 11/12/2020 9:43 AM
[2020-11-12 09:58] LABS: Albumin Globulin Ratio 0.8 (0.9-2); Alkaline Phosphatase 81 U/L (45-117); Bilirubin,Total 0.3 mg/dl (0.2-1); Creatine Kinase 599 U/L (26-192); Globulin 4.4 gm/dl (2.5-4.0)
[2020-11-12] MEDS ORDERED: ALBUT/IPRATROP 3MG/0.5MG NEB 3 ML VIAL NEB ONE (10:51)
[2020-11-12] MEDS ORDERED: NITROGLYCERIN 2% OINTMENT 30GM TUBE EXT STA (11:24)
[2020-11-12] MEDS ORDERED: FUROSEMIDE 40 MG/4 ML VIAL IV STA (11:24)
[2020-11-12 12:19] LABS: Influenza A virus by PCR Negative (Neg); Influenza B virus by PCR Negative (Neg); RSV by PCR Negative (Neg); SARS CoV2 RNA(COVID-19) InHosp NEGATIVE (Negative)
--- NOTE | 2020-11-12 13:37 | History & Physical Report ---
Date of Service November 12, 2020 Assessment & Plan (1) NSTEMI (non-ST elevated myocardial infarction): (2) Elevated troponin: (3) Elevated CPK: (4) Syncope and collapse: (5) History of DVT (deep vein thrombosis): (6) History of pulmonary embolism: (7) Elevated INR: (8) Leukocytosis: (9) Pulmonary vascular congestion: (10) Seizure: (11) Hypothyroid: (12) FORREST (obstructive sleep apnea): (13) Peripheral neuropathy: Due to a troponin of 4.1 we will start aspirin, Plavix, and IV heparin, cardiology will be consulted, will give a dose of Lasix, we are awaiting EKG, 2D echo, Dr. Hutchison has been consulted for the syncope, her Depakote level is low so we will load her on Depakote, Dr. Hutchison will see her in the morning. She will be inpatient PCU, leukocytosis likely reactive one. Check TFTs. Labs checked ROS-No Headache, No Visual Changes, No Nausea, No Vomiting, No Fever, No Chills, No Neck Pain or Stiffness, No Chest Pain, No Palpitations, No SOB, No MARQUEZ, positive cough, positive pink sputum, No Wheezing, No Abdominal Pain, No Diarrhea, No Hematemesis, No Hemoptysis, No Unexpected Weight Loss, No Flank pain, No Melena, No Hematochezia, No Frequency, No Urgency, No Burning, No Hematuria, No Rashes, No Diaphoresis. Appetite is Normal, positive syncopal episode. Physical Exam Gen-AAO x 3, NAD, Afebrile, obese Head-NCAT, EOMI, PERRLA, Anicteric Sclera, No Posterior Pharyngeal Erythema Neck-Supple, No JVD, No Thyromegaly, No Masses, No LAD, No Bruits Lungs-bilateral Rales, No Rhonchi, bilateral wheezing, No Crepitus Chest-No S4, +S1, +S2, No S3, No Murmurs, No Rubs, No Gallops, No Ectopy Abdomen-Soft, obese, bowel Sounds Present, Non Tender, Non Distended, No Hepatomegaly, No Splenomegaly, No Palpable Masses, No Rebound, No Rigidity, No Guarding Musculoskeletal-Full Range of Motion Bilaterally, No CVAT Extremities-No Cyanosis, No Clubbing, No Edema Nuero-Cranial Nerves II-XII grossly intact, Motor WNL, DTRs WNL, Strength WNL, Non Focal Psych-Normal Mood History of Present Illness Chief Complaint: Shortness of breath Primary Care Provider: Grady Fu DO 70-year-old female with a past medical history of pulmonary embolism, deep vein thrombosis, pyelonephritis, rib fractures, fall, UTI, skin cancer, hallucinations, hard of hearing, hypothyroidism, obstructive sleep apnea syndrome, peripheral neuropathy, psychosis, and a seizure disorder. She sees Dr. Hutchison as an outpatient. She said she woke up this morning to go to the bathroom and then when she woke up she was on the floor, she does not know how long she was out and she called for her for help. He was unable to lift her up so they called 911 and came to the [facility] emergency room. Per the emergency room nurse she was doing fine, but then her sats dropped into the low 80s and she put her on 2 L of oxygen and only came up to 91. She was wheezing and had a pink tinge sputum. She denies any headache, fevers, chills, or headache. She did note that when she woke up she was on her knees in the bathroom. In the emergency room she was found to be tachycardic, hypoxic, and wheezing. Allergies Allergy/AdvReac Type Severity Reaction Status Date / Time No Known Allergies Allergy Verified 03/06/19 21:12 Home Medications Medication Instructions Recorded Confirmed Type levothyroxine 75 mcg PO QAM 05/27/18 11/12/20 History oxcarbazepine [Trileptal] 300 tab PO BID 05/27/18 11/12/20 History warfarin 10 mg PO TUTH 05/27/18 11/12/20 History divalproex 250 mg PO QPM 11/12/20 11/12/20 History divalproex 500 mg PO QPM 11/12/20 11/12/20 History warfarin 15 mg PO SUMOWEFRSA 11/12/20 11/12/20 History Past Med/Surg History Medical History Cancer SKIN CANCER Deep vein thrombosis Hallucination Hearing deficit Hypothyroidism On home oxygen therapy [place] OXYGEN AT NIGHT (UNSURE OF LITER) Peripheral neuropathy Psychosis Pulmonary embolism Seizure LAST EPISODE (THIS YEAR/UNSURE OF DATE) ? SEIZURE TYPE>FOLLOWS WITH DR. PHOENIX. OLD RECORDS NOTE EPILEPSY Sleep apnea NO DEVICE USED NOW (CPAP USED IN PAST) Surgical History History of adenoidectomy History of bilateral tubal ligation History of colonoscopy History of tonsillectomy History of tooth extraction Family History Mother Family hx of colon cancer Social History Smoking Status: Never smoker Second Hand Exposure: Yes; Hx Alcohol Use: No Hx Substance Use: No Preferred Language: Iraqi Communication Ability: Effective Professional [employer] Fisher[employer] Required: No Beliefs That Will Affect Care: None Current Living Situation: Spouse Feels Safe at Home: Yes Assistive Devices: Denture - Upper, Denture - Lower, Glasses and Walker Results & Data Results & Data ([facility]) Vital Signs (Past 12 Hours) Vital Signs Temp Pulse Pulse Resp BP BP Pulse Ox 11/12/20 12:00 100 H 20 143/99 H 98 11/12/20 11:38 101 H 18 91 11/12/20 10:54 83 L 11/12/20 10:45 100 H 22 132/94 92 11/12/20 09:08 96 11/12/20 08:48 37 C 98 H 18 111/80 96 Allergies No Known Allergies Allergy (Verified 03/06/19 21:12) Height/Weight/Isolation Weight 114.2 kg Chemistry 11/12/20 09:12 Sodium 136 Potassium 3.9 Chloride 107 Carbon Dioxide 22 Anion Gap 8.0 BUN 11 Creatinine 0.90 Glucose 118 H Urinalysis 11/12/20 09:30 Urine Color Dark Yellow Urine Appearance Clear Urine pH 5.5 Ur Specific Hagan 1.027 Urine Protein 2+ H Urine Glucose (UA) Negative Urine Ketones Trace H Urine Blood Negative Urine Nitrite Negative Urine Bilirubin Negative Code Status & VTE Plan VTE Prophylaxis Plan VTE Prophylaxis will be ordered: Yes
[2020-11-12] MEDS ORDERED: OPTIRAY 320 125ml IV ONE (14:36)
--- NOTE | 2020-11-12 14:40 | CT Scan Report ---
CT SCAN OF THE BRAIN WITHOUT IV CONTRAST CLINICAL HISTORY: Syncope. Weakness. Possible seizure. COMPARISON STUDY: CT of the brain dated 03/06/2019. TECHNIQUE: Unenhanced axial CT scan of the brain is performed from the vertex to the skull base. A do se lowering technique was utilized adhering to the principles of ALARA. FINDINGS: Brain parenchyma: There are age-related involutional changes noting mild subcortical and periventric ular microangiopathic change. There is no hemorrhage, mass effect, or evidence of acute territorial i schemia by CT criteria. Mendoza-white matter differentiation is preserved. No extra-axial fluid collecti on is seen. Ventricles, sulci, cisterns: Prominent secondary to involutional change. Intracranial vasculature: There is atherosclerotic calcification of the cavernous carotid and vertebr al arteries. Calvarium: Unremarkable. Sinuses and mastoids: The paranasal sinuses are clear. The mastoid air cells are well pneumatized. Orbits: The bony orbits are grossly intact. IMPRESSION: There is no hemorrhage, mass effect, or evidence of acute territorial ischemia by CT crilily vargas. ACT 112: Negative or not required by law. Electronically signed by: Janusz Casillas M.D. 11/12/2020 2:39 PM
--- NOTE | 2020-11-12 14:48 | CT Scan Report ---
CT ANGIOGRAM OF THE CHEST CLINICAL HISTORY: Syncope. COMPARISON STUDY: Chest x-ray dated 11/12/2020. Chest CT dated 05/29/2011. TECHNIQUE: Following the IV administration of 120 cc of Optiray 320, CT angiogram of the chest was pe rformed from the upper abdomen to the thoracic inlet utilizing the pulmonary embolus protocol. Images are reviewed in the axial, sagittal, and coronal planes. 3-D MIPS images are created and assessed. I V contrast was administered without complication. A dose lowering technique was utilized adhering to the principles of ALARA. The examination is degraded by motion artifact, as well as by streak artifa ct from the right arm which could not be elevated above the chest. CT DOSE: 1504.65 mGy.cm FINDINGS: Thyroid: The thyroid gland is enlarged and heterogeneous. Thoracic aorta: There is mild atherosclerotic calcification of the thoracic aorta, which is normal in caliber and demonstrates bovine variant arch anatomy. No dissection is seen. Pulmonary vasculature: The pulmonary trunk is normal in caliber. There are no filling defects identif ied in main, lobar, or segmental pulmonary branches to suggest pulmonary embolus. Heart: The heart is mildly enlarged and without pericardial effusion. There are coronary artery calci fications. Lungs and pleural spaces: Evaluation of lung parenchyma is modestly degraded by motion artifact. Ther e are trace pleural effusions with dependent atelectasis. Diffuse intralobular septal thickening is s een throughout both lungs with associated patchy groundglass change. The trachea and central airways are clear. Mediastinum: There is no mediastinal lymphadenopathy. Wandy: Clear. Axillae: There is no axillary lymphadenopathy. Upper abdomen: There are least 2 hepatic cysts measure up to 1.9 cm. A small hiatal hernia is noted. Diverticula are noted in the partially imaged left colon. Skeletal structures: The skeletal structures are osteopenic. Degenerative changes noted throughout th e thoracic spine. There are mild chronic compression deformities of T12 and L1 as well as healed left posterior rib fractures. No lytic or blastic bony lesions are seen. IMPRESSION: 1. Streak and motion degraded examination. 2. There is no hemorrhage, mass effect, or evidence of acute territorial ischemia by CT criteria. 3. Cardiomegaly with evidence of congestive failure. 4. Patchy groundglass change likely represents pulmonary edema. Correlate clinically for evidence of an infectious/inflammatory pneumonitis. 5. Trace pleural effusions. 6. Additional findings as above. ACT 112: Negative or not required by law. Electronically signed by: Janusz Casillas M.D. 11/12/2020 2:47 PM
[2020-11-12] MEDS ORDERED: WARFARIN SOD 7.5 MG TAB PO SCH (14:50)
--- NOTE | 2020-11-12 15:10 | Electrocardiogram Report ---
Test Reason : Blood Pressure : / mmHG Vent. Rate : 094 BPM Atrial Rate : 094 BPM P-R Int : 190 ms QRS Dur : 080 ms QT Int : 356 ms P-R-T Axes : 046 018 042 degrees QTc Int : 445 ms Normal sinus rhythm Nonspecific ST abnormality Anterolateral leads Abnormal ECG When compared with ECG of 29-MAY-2011 12:52, Nonspecific ST abnormality Anterolateral leads now present Confirmed by Ruben Jaramillo ([id number]) on 11/12/2020 3:10:17 PM Referred By: REFERRED SELF Confirmed By:Ruben Jaramillo
--- NOTE | 2020-11-12 15:14 | Electrocardiogram Report ---
Test Reason : Blood Pressure : / mmHG Vent. Rate : 103 BPM Atrial Rate : 103 BPM P-R Int : 166 ms QRS Dur : 078 ms QT Int : 362 ms P-R-T Axes : 051 033 046 degrees QTc Int : 474 ms Poor data quality, interpretation may be adversely affected Sinus tachycardia with occasional Premature ventricular complexes ST depression in Anterior leads , consider ischemia ST depression in Inferior leads , consider ischemia Abnormal ECG When compared with ECG of 12-NOV-2020 08:45, Premature ventricular complexes are now Present ST now depressed in Inferior leads Confirmed by Ruben Jaramillo ([id number]) on 11/12/2020 3:14:11 PM Referred By: REFERRED SELF Confirmed By:Ruben Jaramillo
[2020-11-12] MEDS ORDERED: SODIUM CHLORIDE 0.9% 1000ML 1,000 ML IV SCH (15:15)
--- NOTE | 2020-11-12 15:15 | Electrocardiogram Report ---
Test Reason : Blood Pressure : / mmHG Vent. Rate : 102 BPM Atrial Rate : 102 BPM P-R Int : 168 ms QRS Dur : 080 ms QT Int : 356 ms P-R-T Axes : 038 040 046 degrees QTc Int : 463 ms Sinus tachycardia Abnormal ECG When compared with ECG of 12-NOV-2020 14:04, Premature ventricular complexes are no longer Present ST depression in multiple leads less pronounced Confirmed by Ruben Jaramillo ([id number]) on 11/12/2020 3:14:48 PM Referred By: REFERRED SELF Confirmed By:Ruben Jaramillo
[2020-11-12] MEDS: ACETAMINOPHEN 325 MG TAB PO PRN (15:26)
--- NOTE | 2020-11-12 15:27 | Cardiology Consultation ---
Date of Consultation November 12, 2020 Assessment & Plan (1) NSTEMI (non-ST elevated myocardial infarction): Patient with noted ST segment depression, and mildly elevated troponin I. Without salomón angina, noted after arrival after loss of consciousness episode, unknown time. Recommend aspirin 81 mg daily, metoprolol 25 mg p.o. twice daily, atorvastatin 40 mg daily. Noted LDL cholesterol level of 148 mg/dL in January, as an outpatient, without interval lipid-lowering therapy. (2) Pulmonary vascular congestion: Patient was reportedly wheezing in the emergency department with transient hypoxia noted, she received a dose of IV furosemide. CT of the chest, suggest interstitial edema. Initial plan by the admitting team had been to place her on IV fluids given contrast administration for CTA of the chest, but I think we can probably hold off on this. Echocardiogram has been completed, and the images are being processed. (3) Syncope and collapse: As noted, she does have a history of seizure disorder, uncertain if this is a primary cardiac event, or if she had a noncardiac loss of consciousness event with resultant myocardial strain, perhaps unmasking of underlying coronary heart disease. (4) History of DVT (deep vein thrombosis): She is on chronic Coumadin. Hold Coumadin until INR is less than 2, then start UF heparin. Will likely proceed with coronary angiography within the next 48 hours depending upon how her kidney function and volume status trends. History of Present Illness Attending Physician: Sherif Rosales DO History of Present Illness Sintia Shah is a 70 year old female seen in cardiology consultation per the request of DAISY Roman and Dr. Rosales for evaluation of elevated troponin I. The patient's past medical history is most notable for seizure disorder for which she is on Depakote and Trileptal. At her most recent neurology follow-up visit in August, she had described episodes of brief and attenuation without salomón loss of consciousness. This morning, at approximately 5 AM, while her was sleeping, she got up to use the bathroom, and had a salomón loss of consciousness episode. She recalls going to the bathroom, and then waking up on the bathroom floor, unknown downtime. She was noted to have transient hypoxia and apparent wheezing while in the emergency room. CPK was performed with results of 599 units/L, as drawn at 1308 today was 4.25 ng/ml. Initial COVID-19 test is negative. The patient was seen in person by the undersigned 104. She was conversant. She denied any subjective chest pain or shortness of breath at present. Sinus tachycardia 110 bpm noted at the time of my assessment on telemetry, which is similar to what was noted earlier today. She denies any recent chest discomfort. She does note some degree of chronic shortness of breath. She stat es that she does not follow with cardiology, she actually had seen me on 2 occasions as an outpatient in 2014 for work-up of loss of consciousness episode, and cardiac work-up including long-term outpatient quality assurance monitor final revealed no arrhythmias. A stat CT of the brain has been performed with no acute intracranial pathology. A CT of the chest was performed and per radiology report trace pleural effusions are noted with intralobular septal thickening. The cardiac silhouette was also enlarged. No pulmonary embolism noted. Her past medical history is otherwise notable for obesity with body mass index of 42 kg/m, history of DVT and pulmonary embolism for which she is on chronic anticoagulation with Coumadin, obstructive sleep apnea for which patient is on CPAP. Allergies Allergy/AdvReac Type Severity Reaction Status Date / Time No Known Allergies Allergy Verified 03/06/19 21:12 Home Medications Medication Instructions Recorded Confirmed Type levothyroxine 75 mcg PO QAM 05/27/18 11/12/20 History oxcarbazepine [Trileptal] 300 tab PO BID 05/27/18 11/12/20 History warfarin 10 mg PO TUTH 05/27/18 11/12/20 History divalproex 250 mg PO QPM 11/12/20 11/12/20 History divalproex 500 mg PO QPM 11/12/20 11/12/20 History warfarin 15 mg PO SUMOWEFRSA 11/12/20 11/12/20 History Patient History Medical History Cancer SKIN CANCER Deep vein thrombosis Hallucination Hearing deficit Hypothyroidism On home oxygen therapy [place] OXYGEN AT NIGHT (UNSURE OF LITER) Peripheral neuropathy Psychosis Pulmonary embolism Seizure LAST EPISODE (THIS YEAR/UNSURE OF DATE) ? SEIZURE TYPE>FOLLOWS WITH DR. PHOENIX. OLD RECORDS NOTE EPILEPSY Sleep apnea NO DEVICE USED NOW (CPAP USED IN PAST) Surgical History History of adenoidectomy History of bilateral tubal ligation History of colonoscopy History of tonsillectomy History of tooth extraction Family History Mother Family hx of colon cancer Social History Smoking Status: Never smoker Second Hand Exposure: Yes; Hx Alcohol Use: No Hx Substance Use: No Preferred Language: Samoan Communication Ability: Effective Jogger Operator Required: No Beliefs That Will Affect Care: None Current Living Situation: Spouse Other Information That Helps Us Care for You: No Feels Safe at Home: Yes Safety Concerns: Feels Safe At This Time Assistive Devices: Cane, CPAP, Denture - Upper, Denture - Lower, Glasses, Hearing Aid - Left, Hearing Aid - Right and Walker Physical Exam Physical Exam: Temp Pulse Resp BP Pulse Ox 36.8 C 110 H 20 128/80 97 11/12/20 14:50 11/12/20 14:50 11/12/20 14:50 11/12/20 14:50 11/12/20 14:50 Constitutional: WD/WN, vitals as above Respiratory: normal respiratory effort, lungs clear to auscultation Cardiovascular: RRR, no murmur, no edema Gastrointestinal (Abdomen): normal bowel sounds, soft, nontender, no hepatosplenomegaly Neurologic: PERRL, EOMI, accommodation nl, no face palsy, no dysarthria Results & Data ([facility]) Vital Signs (Past 12 Hours) Vital Signs Temp Pulse Pulse Resp BP BP Pulse Ox 11/12/20 14:50 36.8 C 110 H 20 128/80 97 11/12/20 12:00 100 H 20 143/99 H 98 11/12/20 11:38 101 H 18 91 11/12/20 10:54 83 L 11/12/20 10:45 100 H 22 132/94 92 11/12/20 09:08 96 11/12/20 08:48 37 C 98 H 18 111/80 96 Laboratory Results Cardiac Enzymes 11/12/20 11/12/20 Range/Units 09:12 13:08 AST 34 (15-37) U/L Troponin I 4.250 H* (0-0.045) ng/ml Coagulation 11/12/20 Range/Units 09:12 PT 28.8 H (9.0-12.0) Seconds CBC 11/12/20 Range/Units 09:12 WBC 12.38 H (4.8-10.8) K/uL RBC 4.68 (4.2-5.4) M/uL Hgb 14.8 (12.0-16.0) g/dL Hct 43.0 (37-47) % Plt Count 267 (130-400) K/uL Neut # (Auto) 10.51 H (1.4-6.5) K/uL Lymph # (Auto) 0.61 L (1.2-3.4) K/uL Holmes # (Auto) 1.20 H (0.11-0.59) K/uL Eos # (Auto) 0.00 (0-0.5) K/uL Baso # (Auto) 0.02 (0-0.2) K/uL Comprehensive Metabolic Panel 11/12/20 Range/Units 09:12 Sodium 136 (136-145) mmol/L Potassium 3.9 (3.5-5.1) mmol/L Chloride 107 (98-107) mmol/L Carbon Dioxide 22 (21-32) mmol/L BUN 11 (7-18) mg/dl Creatinine 0.90 (0.6-1.2) mg/dl Glucose 118 H (70-99) mg/dl Calcium 9.1 (8.5-10.1) mg/dl AST 34 (15-37) U/L ALT 27 (12-78) U/L Alkaline Phosphatase 81 (45-117) U/L Total Protein 8.0 (6.4-8.2) gm/dl Albumin 3.6 (3.4-5.0) gm/dl Intake and Output 11/12/20 11/12/20 11/12/20 06:59 14:59 22:59 Intake Total 500 / 500 Output Total 1600 / 1600 Balance -1100 / -1100 Intake: IV 500 / 500 Nss 1000ML 1,000 ml @ 999 mls/ 500 / 500 hr IV .Q1H1M ONE Rx#:[id number] Output: Urine 1600 / 1600 Other: Weight 114.2 kg Weight Measurement Method Built in [facility] Patient Weight 11/13/20 06:59 Weight 114.2 kg Diagnostic Findings EKG tracing performed 11/12/2020 at 1404 and reviewed independently reveals sinus tachycardia 103 bpm, with ST segment depression noted in the inferior, and precordial leads consistent with ischemia, new compared to 8:45 AM. A repeat tracing was performed at [address] at [address] time [address] segment depression was less pronounced, ongoing sinus tachycardia 102 bpm noted.
[2020-11-12 15:33] LABS: Adenovirus PCR Not Detected (NotDetected); Bordetella parapertussis PCR Not Detected (NotDetected); Bordetella pertussis PCR Not Detected (NotDetected); Chlamydia pneumoniae PCR Not Detected (NotDetected); Coronavirus 229E PCR Not Detected (NotDetected); Coronavirus CoV-2 (COVID19)PCR Not Detected (NotDetected); Coronavirus HKU1 PCR Not Detected (NotDetected); Coronavirus NL63 PCR Not Detected (NotDetected); Coronavirus OC43PCR Not Detected (NotDetected); Human Metapneumovirus PCR Not Detected (NotDetected); Influenza A PCR Not Detected (NotDetected); Influenza B PCR Not Detected (NotDetected); Mycoplasma pneumoniae PCR Not Detected (NotDetected); Parainfluenza Virus 1 PCR Not Detected (NotDetected); Parainfluenza Virus 2 PCR Not Detected (NotDetected); Parainfluenza Virus 3 PCR Not Detected (NotDetected); Parainfluenza Virus 4 PCR Not Detected (NotDetected); Respiratory Syncytial VirusPCR Not Detected (NotDetected); Rhinovirus/Enterovirus PCR Not Detected (NotDetected)
[2020-11-12] MEDS: METOPROLOL TARTRATE 25 MG TAB PO SCH ×2 (15:39→21:24)
[2020-11-12] MEDS: predniSONE 20 MG TAB PO SCH (15:39)
[2020-11-12] MEDS ORDERED: FUROSEMIDE 40 MG in SYRINGE 0 ML IV ONE (15:45)
[2020-11-12] MEDS: DIVALPROEX EXTENDED RELEASE 500 MG TAB PO SCH (17:11)
[2020-11-12] MEDS: ASPIRIN 81 MG ECTAB PO SCH (17:11)
[2020-11-12] MEDS: ATORVASTATIN 40 MG TAB PO SCH (17:11)
[2020-11-12] MEDS: ALBUT/IPRATROP 3MG/0.5MG NEB 3 ML VIAL NEB SCH ×2 (18:38→18:39)
[2020-11-12] MEDS ORDERED: DIVALPROEX EXTENDED RELEASE 250 MG TABCR PO SCH (21:00)
[2020-11-12] MEDS ORDERED: DIVALPROEX EXTENDED RELEASE 500 MG TAB PO SCH (21:00)
[2020-11-12] MEDS: OXcarbazepine 150 MG TABLET PO SCH (21:24)
[2020-11-13 04:59] LABS: Hemoglobin 14.9 g/dL (12.0-16.0); Mean Corpuscular Hemoglobin 31.6 pg (25-34); Mean Corpuscular Hgb Conc 34.7 g/dL (32-36); Mean Corpuscular Volume 91.3 fL (80-100); Mean Platelet Volume 9.9 fL (7.4-10.4); Platelet Count 277 K/uL (130-400); RDW Coefficient of Variation 14.1 % (11.5-14.5); RDW Standard Deviation 47.4 fL (36.4-46.3); Red Blood Count 4.71 M/uL (4.2-5.4); White Blood Count 10.86 K/uL (4.8-10.8)
[2020-11-13 05:18] LABS: INR 4.5 (0.9-1.1); Prothrombin Time 40.8 Seconds (9.0-12.0)
[2020-11-13 05:21] LABS: BUN Creatinine Ratio 15.9 (10-20); Calcium 8.4 mg/dl (8.5-10.1); Creatinine Clr Calc Pharmacy 99.9 ml/min; Est GFR (African American) 104.5; Est GFR (Non-African American) 90.1; Potassium 3.8 mmol/L (3.5-5.1)
[2020-11-13] MEDS: LEVOTHYROXINE SODIUM 75 MCG TABLET PO SCH (06:56)
--- NOTE | 2020-11-13 06:57 | Hospitalist Progress Note ---
Date of Service November 13, 2020 Assessment & Plan (1) NSTEMI (non-ST elevated myocardial infarction): (2) Elevated troponin: (3) Elevated CPK: (4) Syncope and collapse: (5) History of DVT (deep vein thrombosis): (6) History of pulmonary embolism: (7) Elevated INR: (8) Leukocytosis: (9) Pulmonary vascular congestion: (10) Seizure: (11) Hypothyroid: (12) FORREST (obstructive sleep apnea): (13) Peripheral neuropathy: Patient c Acute Systolic CHF sec to NSTEMI. Cardiology on case, Lasix, EKG- AnteriorLateral ST Depression, 2D echo-EF 40 % c Global Hypokinesis, Dr. Hutchison has been consulted for the syncope, her Depakote was low so we loaded her on Depakote, Labs checked ROS-No Headache, No Visual Changes, No Nausea, No Vomiting, No Fever, No Chills, No Neck Pain or Stiffness, No Chest Pain, No Palpitations, No SOB, No MARQUEZ, positive cough, positive pink sputum, No Wheezing, No Abdominal Pain, No Diarrhea, No Hematemesis, No Hemoptysis, No Unexpected Weight Loss, No Flank pain, No Melena, No Hematochezia, No Frequency, No Urgency, No Burning, No Hem aturia, No Rashes, No Diaphoresis. Appetite is Normal, positive syncopal episode. Physical Exam Gen-AAO x 3, NAD, Afebrile, obese Head-NCAT, EOMI, PERRLA, Anicteric Sclera, No Posterior Pharyngeal Erythema Neck-Supple, No JVD, No Thyromegaly, No Masses, No LAD, No Bruits Lungs-bilateral Rales, No Rhonchi, bilateral wheezing, No Crepitus Chest-No S4, +S1, +S2, No S3, No Murmurs, No Rubs, No Gallops, No Ectopy Abdomen-Soft, obese, bowel Sounds Present, Non Tender, Non Distended, No Hepatomegaly, No Splenomegaly, No Palpable Masses, No Rebound, No Rigidity, No Guarding Musculoskeletal-Full Range of Motion Bilaterally, No CVAT Extremities-No Cyanosis, No Clubbing, No Edema Nuero-Cranial Nerves II-XII grossly intact, Motor WNL, DTRs WNL, Strength WNL, Non Focal Psych-Normal Mood Admission and Anticipated Discharge Date Admission Date: November 12, 2020 Results & Data Results & Data ([facility]) Vital Signs (Past 12 Hours) Vital Signs Pulse Resp BP Pulse Ox 11/13/20 04:00 81 26 H 94 11/13/20 03:00 98 H 16 92 11/13/20 02:00 81 21 91 11/13/20 01:00 86 22 94 11/13/20 00:36 102 H 16 91 11/13/20 00:35 101 H 19 118/87 89 L 11/13/20 00:00 93 H 25 H 90 11/12/20 23:00 111 H 18 85 L 11/12/20 22:37 101 H 25 H 93 11/12/20 22:00 107 H 23 86 L 11/12/20 21:15 110 H 26 H 135/99 92 11/12/20 21:00 115 H 23 135/99 11/12/20 20:00 102 H 19 92 11/12/20 19:12 105 H 26 H 92
[2020-11-13] MEDS: ALBUT/IPRATROP 3MG/0.5MG NEB 3 ML VIAL NEB SCH ×4 (07:56→19:59)
[2020-11-13] MEDS: METOPROLOL TARTRATE 25 MG TAB PO SCH ×2 (09:23→20:48)
[2020-11-13] MEDS: predniSONE 20 MG TAB PO SCH (09:23)
[2020-11-13] MEDS: OXcarbazepine 150 MG TABLET PO SCH ×2 (09:23→20:48)
[2020-11-13] MEDS: ATORVASTATIN 40 MG TAB PO SCH (09:23)
[2020-11-13] MEDS: ASPIRIN 81 MG ECTAB PO SCH (09:23)
[2020-11-13] MEDS: DIVALPROEX EXTENDED RELEASE 500 MG TAB PO SCH (09:23)
--- NOTE | 2020-11-13 09:35 | Electrocardiogram Report ---
Test Reason : Blood Pressure : / mmHG Vent. Rate : 089 BPM Atrial Rate : 089 BPM P-R Int : 230 ms QRS Dur : 068 ms QT Int : 408 ms P-R-T Axes : 051 046 033 degrees QTc Int : 496 ms Poor data quality, interpretation may be adversely affected Sinus rhythm with 1st degree A-V block Nonspecific ST abnormality Anterior leads Prolonged QT Abnormal ECG When compared with ECG of 12-NOV-2020 14:05, MD interval has increased ST depression in Inferior leads no longer present Confirmed by Ruben Jaramillo ([id number]) on 11/13/2020 9:35:32 AM Referred By: REFERRED SELF Confirmed By:Ruben Jaramillo
[2020-11-13] MEDS ORDERED: PHYTONADIONE 5 MG in SODIUM CHLORIDE 0.9% 50 ML IV ONE (09:45)
[2020-11-13] MEDS: ACETAMINOPHEN 325 MG TAB PO PRN (10:55)
--- NOTE | 2020-11-13 12:04 | Electroencephalogram ---
EEG Procedure Note Date of Service November 13, 2020 Start / End Times Start Time: 538 End Time: 558 Referring Physician Ravi Hutchison MD History History of seizures with unwitnessed syncopal event Home Medication List Medication Instructions Recorded Confirmed Type levothyroxine 75 mcg PO QAM 05/27/18 11/12/20 History oxcarbazepine [Trileptal] 300 tab PO BID 05/27/18 11/12/20 History warfarin 10 mg PO TUTH 05/27/18 11/12/20 History divalproex 250 mg PO QPM 11/12/20 11/12/20 History divalproex 500 mg PO QPM 11/12/20 11/12/20 History warfarin 15 mg PO SUMOWEFRSA 11/12/20 11/12/20 History Inpatient Medication List Acetaminophen (Acetaminophen 325 Mg Tab) 650 mg PO Q4H PRN PRN Reason: Pain or Fever Stop: 12/12/20 14:49 Last Admin: 11/13/20 10:55 Dose: 650 mg Documented by: [id number] Admin: 11/12/20 15:26 Dose: 650 mg Documented by: [id number] Albuterol (Albut/Ipratrop 3mg/0.5mg Neb 3 Ml Vial) 3 ml NEB QIDR [facility] Stop: 12/12/20 14:59 Last Admin: 11/13/20 07:56 Dose: Not Given Documented by: [id number] Admin: 11/12/20 18:39 Dose: Not Given Documented by: [id number] Admin: 11/12/20 18:38 Dose: 3 ml Documented by: [id number] Aspirin (Aspirin 81 Mg Ectab) 81 mg PO [facility] Stop: 12/12/20 15:59 Last Admin: 11/13/20 09:23 Dose: 81 mg Documented by: [id number] Admin: 11/12/20 17:11 Dose: 81 mg Documented by: [id number] Atorvastatin Calcium (Atorvastatin 40 Mg Tab) 40 mg PO [facility] Stop: 12/12/20 15:59 Last Admin: 11/13/20 09:23 Dose: 40 mg Documented by: [id number] Admin: 11/12/20 17:11 Dose: 40 mg Documented by: [id number] Divalproex Sodium (Divalproex Extended Release 500 Mg Tab) 1,000 mg PO DAILY [facility] Stop: 12/12/20 14:59 Last Admin: 11/13/20 09:23 Dose: 1,000 mg Documented by: [id number] Admin: 11/12/20 17:11 Dose: 1,000 mg Documented by: [id number] Levothyroxine Sodium (Levothyroxine Sodium 75 Mcg Tablet) 75 mcg PO DAILYBB [facility]ACHA Stop: 12/13/20 06:29 Last Admin: 11/13/20 06:56 Dose: 75 mcg Documented by: [id number] Metoprolol Tartrate (Metoprolol Tartrate 25 Mg Tab) 25 mg PO BID [facility] Stop: 12/12/20 14:24 Last Admin: 11/13/20 09:23 Dose: 25 mg Documented by: [id number] Admin: 11/12/20 21:24 Dose: 25 mg Documented by: [id number] Admin: 11/12/20 15:39 Dose: 25 mg Documented by: [id number] Oxcarbazepine (Oxcarbazepine 150 Mg Tablet) 300 mg PO BID SACHA Stop: 12/12/20 20:59 Last Admin: 11/13/20 09:23 Dose: 300 mg Documented by: [id number] Admin: 11/12/20 21:24 Dose: 300 mg Documented by: [id number] Prednisone (Prednisone 20 Mg Tab) 40 mg PO DAILY [facility] Stop: 12/12/20 14:49 Last Admin: 11/13/20 09:23 Dose: 40 mg Documented by: [id number] Admin: 11/12/20 15:39 Dose: 40 mg Documented by: [id number] Discontinued Medications Albuterol (Albut/Ipratrop 3mg/0.5mg Neb 3 Ml Vial) 12 ml NEB ONE ONE Stop: 11/12/20 10:52 Last Admin: 11/12/20 11:38 Dose: 12 ml Documented by: [id number] Furosemide (Furosemide 40 Mg/4 Ml Vial) 40 mg IV NOW STA Stop: 11/12/20 11:25 Last Admin: 11/12/20 11:49 Dose: 40 mg Documented by: [id number] Sodium Chloride (Nss 1000ml) 1,000 mls @ 999 mls/hr IV .Q1H1M ONE Stop: 11/12/20 10:04 Last Infusion: 11/12/20 10:53 Dose: 0 mls/hr Documented by: [id number] Admin: 11/12/20 09:44 Dose: 999 mls/hr Documented by: [id number] Sodium Chloride (Nss 1000ml) 1,000 mls @ 80 mls/hr IV .[id number] [facility]AC[facility] Stop: 12/12/20 15:14 Last Infusion: 11/12/20 15:37 Dose: 0 mls/hr Documented by: [id number] Admin: 11/12/20 15:27 Dose: 80 mls/hr Documented by: [id number] Furosemide 40 mg/ Syringe 4 mls @ 4 mls/min IV ONE ONE Stop: 11/12/20 15:46 Last Admin: 11/12/20 17:11 Dose: 4 mls/min Documented by: [id number] Phytonadione 5 mg/ Sodium (Chloride) 50.5 mls @ 101 mls/hr IV NOW ONE Stop: 11/13/20 10:14 Last Infusion: 11/13/20 10:28 Dose: 0 mls/hr Documented by: [id number] Admin: 11/13/20 09:58 Dose: 101 mls/hr Documented by: [id number] Ioversol (Optiray 320 125ml) 120 ml IV ONCE ONE Stop: 11/12/20 14:37 Last Admin: 11/12/20 14:37 Dose: 120 ml Documented by: [id number] Nitroglycerin (Nitroglycerin 2% Ointment 30gm Tube) 1 inch EXT NOW STA Stop: 11/12/20 11:25 Last Admin: 11/12/20 11:49 Dose: 1 inch Documented by: [id number] Warfarin Sodium (Warfarin Sod 7.5 Mg Tab) 15 mg PO SUMOWEFRSA [facility] Stop: 12/12/20 14:49 Last Admin: 11/12/20 17:19 Dose: Not Given Documented by: [id number] Description This is a 21 electrode EEG with a single channel dedicated to limited EKG. The electrodes were placed in accordance with the International 10-20 This EEG was done as a bedside recording and is of good technical quality with few or no muscle movement artifacts. Photic stimulation was performed. Drowsiness and light sleep were not recorded. Under these conditions there is evidence for normal-appearing background rhythm in the alpha range of 9 Hz maximum frequency of up to 30 V maximal amplitude which is symmetrical in maximum posterior head regions. Polymorphic mid frequency modest voltage theta activity seen symmetrically and maximally in the central regions. Anterior head region maximal bilaterally symmetrical voltage fast activity beta range is present. Photic stimulation evoked no important changes No evidence for potentially epileptogenic activity during any portion of the recording Interpretation Normal EEG during wakefulness Clinical Correlation This is a normal EEG during wakefulness without evidence for focal or generalized encephalopathy and without evidence for potentially epileptogenic activity. It does not however exclude the diagnosis of seizure disorder. Ravi Hutchison MD
--- NOTE | 2020-11-13 12:20 | Neurology Consultation ---
Date of Consultation November 13, 2020 Assessment & Plan (1) NSTEMI (non-ST elevated myocardial infarction): 1. cardiology on board and planning a cardiac cath tomorrow 2. aspirin 81 mg and plavix 75 mg daily started 3. coumadin 4.5 - correct to 2.0-3.0 4. optimize HTN HLD LDL <70 5. PT/OT for discharge needs 6. ALEK no ASD Present on Admission?: Yes (2) Elevated troponin: 1. troponin elevated x 3 Present on Admission?: Yes (3) Peripheral neuropathy: 1. known neuropathy not on treatment Present on Admission?: Yes (4) Seizure: 1. depakote was increased from 750 mg daily to 1000 mg daily 2. trileptal 300 mg twice daily- continue 3. no driving for 6 months from last seizure date, no heights, no bathing or swimming alone 4. EEG - no seizure focus 5. out patient 72 hour EEG to r/o seizure episode to r/o non epileptic events. Present on Admission?: Yes Supervising Physician Co-Signing Physician Notes I have seen and discussed above patient with Dr Ravi Hutchison, neurology I have seen and interviewed and examined this woman in no her well from multiple outpatient visits over the years. She has an unusual seizure disorder with brief duration "spells" of unusual sensations without any real loss of consciousness and I have attempted over the past several years to get a 72-hour EEG recording just to see if we can capture these events and establish whether or not they are indeed epileptic in origin She is now admitted after having 1 of these spells and then going to the bathroom which according to her is usually an aftermath of these events. After arriving there she lost all memory of events and found herself awake on the bathroom floor. Is not clear whether any seizure activity was recorded but she did not suffer any injuries and the evaluation so far includes a normal EEG and a subtherapeutic Depakote level which we have corrected oral arm tending to correct by raising the dose from 750 extended release 1999 She is also on Trileptal but level is not back and I see no reason to raise this empirically She is also had an MRI of the brain which shows no acute changes She developed hypoxemia shortly after arrival in the emergency room and is now being assessed by cardiology and are ceramic mold designer staff is going to have a cardiac catheterization study etc. due to the fact that she is felt to have had a non-ST [place] I refer the reader to Dr. Parker's notes regarding the case. 1 serious that the stress of the seizure may have precipitated a myocardial infarction in a woman with pre-existing coronary disease. I certainly cannot address this but the nature of the seizure she described was pretty minor it would be hard to totally exclude a transient arrhythmia or even a hypotensive event as the explanation for the syncope that followed the minor seizure she reported Whatever the case I think neurology is simply going to wait for the Trileptal level and will recommend another Depakote level be done in about 2 days We will try to schedule her 72-hour EEG on an outpatient basis We will follow along for another day or 2 just to see what the cardiac evaluation yields at present are not recommending any other changes in her anticonvulsant status or dosing or any further neurologic investigation Ravi Hutchison MD History of Present Illness Reason for Consultation: LOC, hx seizure Requesting Physician: Sherif Rosales DO Attending Physician: Sherif Rosales DO History of Present Illness Sintia is a 70 year old female with PMH- PE, DVT, pyelonephritis, rib fractures, fall, UTI, skin cancer, hallucinations, hard of hearing, hypothyroidism, FORREST, peripheral neuropathy, psychosis, and a seizure disorder. She was brought to [facility] ED for evaluation after being found on the bathroom floor. She is known to Dr. Ravi Hutchison as an outpatient. She said she woke up this morning to go to the bathroom and then when she woke up she was on the floor, she does not know how long she was out and she called for her for help. He was unable to lift her up so they called 911. She had been scheduled in the past for ambulatory EEG but has chosen not to have the test. She is scheduled for a cardiac catheter tomorrow to r/o any heart related causes of her syncope episode. denies CP, SOB, abdominal pain, N, V. vision changes. Allergies Allergy/AdvReac Type Severity Reaction Status Date / Time No Known Allergies Allergy Verified 03/06/19 21:12 Home Medications Medication Instructions Recorded Confirmed Type levothyroxine 75 mcg PO QAM 05/27/18 11/12/20 History oxcarbazepine [Trileptal] 300 tab PO BID 05/27/18 11/12/20 History warfarin 10 mg PO TUTH 05/27/18 11/12/20 History divalproex 250 mg PO QPM 11/12/20 11/12/20 History divalproex 500 mg PO QPM 11/12/20 11/12/20 History warfarin 15 mg PO SUMOWEFRSA 11/12/20 11/12/20 History Patient History Medical History Cancer SKIN CANCER Deep vein thrombosis Hallucination Hearing deficit Hypothyroidism On home oxygen therapy [place] OXYGEN AT NIGHT (UNSURE OF LITER) Peripheral neuropathy Psychosis Pulmonary embolism Seizure LAST EPISODE (THIS YEAR/UNSURE OF DATE) ? SEIZURE TYPE>FOLLOWS WITH DR. PHOENIX. OLD RECORDS NOTE EPILEPSY Sleep apnea NO DEVICE USED NOW (CPAP USED IN PAST) Surgical History History of adenoidectomy History of bilateral tubal ligation History of colonoscopy History of tonsillectomy History of tooth extraction Family History Mother Family hx of colon cancer Social History Smoking Status: Never smoker Second Hand Exposure: Yes; Hx Alcohol Use: No Hx Substance Use: No Preferred Language: Armenian Communication Ability: Effective Assembly Instructions Writer Required: No Beliefs That Will Affect Care: None Current Living Situation: Spouse Other Information That Helps Us Care for You: No Feels Safe at Home: Yes Safety Concerns: Feels Safe At This Time Assistive Devices: Walker Review of Systems Review of Systems: All systems reviewed & are unremarkable except as noted in HPI & below Physical Exam Physical Exam: Physical Exam: Constitutional: appearance over nourished Ears, Nose, Mouth and Throat: mucous membranes moist, no injection and skin normal, eyes normal Cardiovascular: normal S-1 and S-2 and regular rate and rhythm Respiratory: clear to auscultation (CTA) and no rales, ronchi or wheeze Musculoskeletal: + peripheral edema, distant pulses Skin: no stigmata of neurocutaneous disease noted and normal and intact Eyes: extraocular muscles intact (EOMI) and pupils equal, round and reactive to light (PERRL) NEUROLOGIC EXAMINATION: Mental status: Alert and interactive Oriented to full date and location Oriented to person Speech fluent with no evidence of aphasia Cranial Nerves smile eye brow raise symmetric Reflexes: Deep tendon reflexes were decreased in LE Sensory: decreased sensation to vibration light-cool touch intact Coordination: finger to nose no bipass Gait/Stance: Posture lying in bed. Gait not assessed Motor: Negative for pronator drift of out stretched arms with eyes closed. Strength: hand perinatology physician biceps triceps bilaterally 5/5, hip flex patellar plantar flex ext 5/5 Results & Data ([facility]) Vital Signs (Past 12 Hours) Vital Signs Temp Pulse Pulse Resp BP BP Pulse Ox 11/13/20 12:14 82 19 91 11/13/20 12:00 36.8 C 87 18 118/68 95 11/13/20 08:00 36.3 C L 92 H 22 118/74 96 11/13/20 07:56 95 H 20 99 11/13/20 04:00 81 26 H 94 11/13/20 03:00 98 H 16 92 11/13/20 02:00 81 21 91 11/13/20 01:00 86 22 94 11/13/20 00:36 102 H 16 91 11/13/20 00:35 101 H 19 118/87 89 L Laboratory Results Abnormal lab results 11/12/20 11/12/20 11/12/20 Range/Units 13:08 13:08 18:45 WBC (4.8-10.8) K/uL RDW Std Deviation (36.4-46.3) fL PT (9.0-12.0) Seconds INR (0.9-1.1) Glucose (70-99) mg/dl Calcium (8.5-10.1) mg/dl Total Creatine Kinase (26-192) U/L Troponin I 4.250 H* 6.440 H* (0-0.045) ng/ml Valproic Acid 38 L (50-100) mcg/ml 11/12/20 11/13/20 11/13/20 Range/Units 18:45 00:28 04:41 WBC 10.86 H (4.8-10.8) K/uL RDW Std Deviation 47.4 H (36.4-46.3) fL PT (9.0-12.0) Seconds INR (0.9-1.1) Glucose (70-99) mg/dl Calcium (8.5-10.1) mg/dl Total Creatine Kinase 1809 H (26-192) U/L Troponin I 4.950 H* (0-0.045) ng/ml Valproic Acid (50-100) mcg/ml 11/13/20 11/13/20 Range/Units 04:41 04:41 WBC (4.8-10.8) K/uL RDW Std Deviation (36.4-46.3) fL PT 40.8 H (9.0-12.0) Seconds INR 4.5 H (0.9-1.1) Glucose 117 H (70-99) mg/dl Calcium 8.4 L (8.5-10.1) mg/dl Total Creatine Kinase 1505 H (26-192) U/L Troponin I (0-0.045) ng/ml Valproic Acid (50-100) mcg/ml Diagnostic Findings CTA chest- Streak and motion degraded examination. There is no hemorrhage, mass effect, or evidence of acute territorial ischemia by CT criteria. Cardiomegaly with evidence of congestive failure. . Patchy groundglass change likely represents pulmonary edema. Correlate clinically for evidence of an infectious/inflammatory pneumonitis. Trace pleural effusions. CT head-here is no hemorrhage, mass effect, or evidence of acute territorial ischemia by CT criteria. TTE- sinus radu cardia, EF 40% no ASD
--- NOTE | 2020-11-13 12:21 | Cardiology Progress Note ---
Date of Service November 13, 2020 Assessment & Plan (1) NSTEMI (non-ST elevated myocardial infarction): Patient with noted transient ST segment depression, and mildly elevated troponin I. Without saolmón angina, noted after arrival after loss of consciousness episode, unknown time. Recommend aspirin 81 mg daily, metoprolol 25 mg p.o. twice daily, atorvastatin 40 mg daily. Noted LDL cholesterol level of 148 mg/dL in January, as an outpatient, without interval lipid-lowering therapy. -Believe this may affect very well been a type II myocardial with severe systemic illness in the setting of fixed coronary heart disease rather than an acute coronary plaque rupture. -INR trended up to 4.5 despite having held Coumadin. -Proceed with vitamin K, 5 mg intravenously. -Repeat INR at 1500. When INR less than 2, start heparin bridge. -We will likely proceed with invasive coronary angiography for definitive evaluation after optimize from an INR implant status standpoint. (2) Pulmonary vascular congestion: Patient was reportedly wheezing in the emergency department with transient hypoxia noted, she received a dose of IV furosemide. CT of the chest, suggest interstitial edema. Received 2 doses of IV furosemide on 11/12/2020. Plan status stable today. Pulse oximetry improved. (3) Syncope and collapse: As noted, she does have a history of seizure disorder, uncertain if this is a primary cardiac event, or if she had a noncardiac loss of consciousness event with resultant myocardial strain, perhaps unmasking of underlying coronary heart disease. (4) History of DVT (deep vein thrombosis): She is on chronic Coumadin as outpatient. Hold Coumadin until INR is less than 2, then start UF heparin. Admission and Anticipated Discharge Date Admission Date: November 12, 2020 Subjective Patient seen in cardiology follow-up. She notes feeling well. Denies any chest discomfort. States her breathing has trended toward improvement. Telemetry reveals stable sinus rhythm in the 80s, heart rate much improved compared to yesterday. Review of Systems Review of Systems: All systems reviewed & are unremarkable except as noted in HPI & below No seizure-like activity overnight last night or thus far today. Physical Exam Physical Exam: Temp Pulse Resp BP Pulse Ox 36.8 C 82 19 118/68 91 11/13/20 12:00 11/13/20 12:14 11/13/20 12:14 11/13/20 12:00 11/13/20 12:14 Constitutional: WD/WN, vitals as above Respiratory: no respiratory distress and no cough Auscultation: no crackles Mildly decreased breath sounds in the bases, no rales rhonchi or wheezing Cardiovascular: RRR, no murmur, no edema Neurologic: PERRL, EOMI, accommodation nl, no face palsy, no dysarthria Results & Data ([facility]) Vital Signs (Past 12 Hours) Vital Signs Temp Pulse Pulse Resp BP BP Pulse Ox 11/13/20 12:14 82 19 91 11/13/20 12:00 36.8 C 87 18 118/68 95 11/13/20 08:00 36.3 C L 92 H 22 118/74 96 11/13/20 07:56 95 H 20 99 11/13/20 04:00 81 26 H 94 11/13/20 03:00 98 H 16 92 11/13/20 02:00 81 21 91 11/13/20 01:00 86 22 94 11/13/20 00:36 102 H 16 91 11/13/20 00:35 101 H 19 118/87 89 L Laboratory Results Cardiac Enzymes 11/12/20 11/12/20 11/13/20 Range/Units 13:08 18:45 00:28 Troponin I 4.250 H* 6.440 H* 4.950 H* (0-0.045) ng/ml Coagulation 11/13/20 Range/Units 04:41 PT 40.8 H (9.0-12.0) Seconds CBC 11/13/20 Range/Units 04:41 WBC 10.86 H (4.8-10.8) K/uL RBC 4.71 (4.2-5.4) M/uL Hgb 14.9 (12.0-16.0) g/dL Hct 43.0 (37-47) % Plt Count 277 (130-400) K/uL Comprehensive Metabolic Panel 11/13/20 Range/Units 04:41 Sodium 138 (136-145) mmol/L Potassium 3.8 (3.5-5.1) mmol/L Chloride 105 (98-107) mmol/L Carbon Dioxide 26 (21-32) mmol/L BUN 10 (7-18) mg/dl Creatinine 0.66 (0.6-1.2) mg/dl Glucose 117 H (70-99) mg/dl Calcium 8.4 L (8.5-10.1) mg/dl Intake and Output 11/12/20 11/13/20 11/13/20 22:59 06:59 14:59 Intake Total 13.333 / 513.333 50.5 / 50.5 Output Total 1850 / 3750 300 / 3750 Balance -1836.667 / -3236.667 -300 / -3236.667 50.5 / 50.5 Intake: IV 13.333 / 513.333 50.5 / 50.5 Aqua-Mephyton 5 mg In Nss 50 ml 50.5 / 50.5 @ 101 mls/hr IV NOW ONE Rx#: [id number] Nss 1000ML 1,000 ml @ 80 mls/hr 13.333 / 13.333 IV .[id number] [facility] Rx#:[id number] Output: Urine Amount (Catheter) 1850 / 2150 300 / 2150 Mcclain/Indwelling 1850 / 2150 300 / 2150 Other: Weight 111.2 kg 113.3 kg Weight Measurement Method Built in [facility] Diagnostic Findings EKG this morning 11/13/2020 revealed sinus rhythm at 89 bpm, first-degree AV block, 2 and V5, overall however the ST segment depression noted on 11/12/2020 has improved/resolved.
[2020-11-13] MEDS ORDERED: GADOBUTROL 30ML VIAL IV ONE (13:50)
--- NOTE | 2020-11-13 14:12 | Magnetic Resonance Report ---
MR brain seizure wo/w con HISTORY: 70 years-old Female syncope/ hx of seizure acute syncope with seizure like activity. Acute fall. COMPARISON: Head CT 11/12/2020 TECHNIQUE: Multiplanar multisequence MRI of the brain was obtained both with and without the use of 1 1.0 mL Gadavist utilizing seizure protocol FINDINGS: There is no restricted diffusion to suggest acute or subacute infarct. No acute intracranial hemorrha ge, midline shift, abnormal extra-axial collection, hydrocephalus or intracranial mass. Age-related i nvolutional changes. Minimal T2/FLAIR hyperintensities within the white matter suggest probable chron ic microvascular ischemic changes. No acute seizure focus or evidence of mesial temporal sclerosis. N o pathologic blooming artifact on the T2 star series. Cerebral venous sinuses and major arterial flow voids appear patent. Mastoid air cells and paranasal sinuses are clear. The skull, orbits and soft t issues are within normal limits. No abnormal intra-axial or extra-axial enhancement. IMPRESSION: 1. No acute intracranial abnormality. 2. No abnormal enhancement. ACT 112: Negative or not required by law. The above report was generated using voice recognition software. It may contain grammatical, syntax o r spelling errors. Electronically signed by: Bryant Pacheco M.D. 11/13/2020 2:10 PM
[2020-11-13 15:34] LABS: INR 1.9 (0.9-1.1); Prothrombin Time 18.4 Seconds (9.0-12.0)
--- NOTE | 2020-11-13 15:39 | Emergency Department Note ---
Impression & Plan Syncope, NSTEMI (non-ST elevated myocardial infarction) ED Provider Note NAME: STEVIE CA AGE: 70 SEX: F : 1950 ARRIVES VIA: Ambulance INFORMANT: Patient, EMS ED PROVIDER(S): Lonnie Kirby MD CHIEF COMPLAINT: Syncope HPI: This 70-year-old female who presents emergency department after being found on the floor of her bathroom. Patient is unsure of what happened but thinks she had a seizure. She does have a history of seizures previously. The patient was found on her knees and apparently was unable to get up off her knees. She is complaining of pain bilaterally to her knees. She denies any chest pain or shortness of breath. She denies any recent fevers or chills. ROS: See above HPI for pertinent positives & negatives. A total of 10 systems reviewed and were otherwise negative. PAST MEDICAL HISTORY: See Below PAST SURGICAL HISTORY: See Below FAMILY HISTORY: See Below SOCIAL HISTORY: See Below HOME MEDICATIONS: See Below ALLERGIES: See Below VITALS: See Below PHYSICAL EXAMINATION: VITAL SIGNS - Vital signs and nursing notes were reviewed. GENERAL - 70-year-old female appearing stated age who is in no acute distress. Communicates well with provider and answers questions appropriately. SKIN - Without rashes. HEAD - NC/AT. EYES - PERRL with EOMI bilaterally. Sclera anicteric. Palpebral conjunctiva pink and moist with no injection noted. EARS - No deformities of external structures noted on gross examination bilaterally. NOSE - Midline and without cyanosis. No epistaxis or purulent drainage noted. Septum midline without deviation or septal hematoma noted. MOUTH/OROPHARYNX - Without perioral cyanosis. Buccal mucosa pink and moist and without leukoplakia. Tongue midline with equal elevation of palate bilaterally. No tonsillar hypertrophy, erythema, or exudates noted. NECK - Neck with FROM. Supple to palpation. lymphadenopathy noted. No nuchal rigidity. LUNGS - Chest wall symmetric without accessory muscle use, intercostals retractions, or central cyanosis. Normal vesicular breath sounds CTA B/L. No wheezes, rales, or rhonchi appreciated. CARDIAC - RRR with S1/S2. No murmur, rubs, or gallops appreciated. ABDOMEN - Abdominal contour without pulsations or visible masses. BS normoactive all four quadrants. No tenderness, palpable masses, hepatosplenomegaly, or ascites noted. EXTREMITIES - No clubbing or peripheral cyanosis. No pretibial edema present. +3/5 radial, posterior tibial, and dorsalis pedis pulses palpated throughout. redness noted to anterior knees NEUROLOGIC - Cranial nerves II through XII grossly intact. Sensory intact to light touch throughout. Patellar reflexes +2/4. PSYCH - A&Ox3 and cooperates fully with examiner. Pt is very pleasant and interacts well with examiner. MEDICAL DECISION MAKING: Patient was seen and evaluated as above in room B7. Review was performed of nursing notes and vital signs. I did review pertinent previous visits and patient history. After obtaining a thorough history and physical examination the above work up was performed. This 70-year-old female who presents to the emergency department after a syncopal episode. The patient feels that she had a seizure. The patient was noted to be hypoxic here in the emergency department and was started on oxygen. She was also started coughing up pink-tinged phlegm. At this point she was started on Lasix and troponin and BNP were obtained. Patient was found to have a grossly elevated troponin. She was discussed with the medicine service who agreed to admit the patient. While in the department, I personally reevaluated the patient several times and each time the patient was found to be resting comfortably. The patient was educated upon management, educated upon todays findings/results, educated upon importance of follow up from today's visit, educated upon symptoms in which to return, had questions answered prior to discharge, verbalized understanding, and was discharged home in good condition. An order was placed for continuous cardiac monitoring. The monitor shows a rate of 90 with Normal Sinus rhythm. The patient was evaluated during a period of high volume and high acuity during the global COVID-19 pandemic, and that diagnosis was suspected/considered upon their initial presentation. Their evaluation, treatment and testing was consistent with current guidelines for patients who present with complaints or symptoms that may be related to COVID-19. Patient was seen while provider was w earing PPE. Triage Nursing notes reviewed. Prior medical records reviewed Vital Signs: reviewed and remarkable for no significant abnormalities Differential diagnosis: Infection, dehydration, metabolic abnormality, hypo/hyperglycemia, electrolyte disturbance, anemia, hypoxia, cardiac sources, intracerebral event, toxicologic, neurologic, as well as other pathologies. ER treatment provided: See below Diagnostics interpreted by me: ECG: Normal sinus rhythm no ST elevation or depression QTC is 445 ventricular rate is 94 when compared to 05/29/2011 no significant changes noted. Laboratory studies: As stated above and show below. Imaging studies: See below Consultation(s): Internal Medicine Critical Care: I have personally spent greater than 30 minutes of critical care time in the direct management of this patient. This includes bedside care, interpretation of diagnostic studies, and testing, discussion with consultants, patient, and family members, and other required patient management activities. This 30 minutes is in excess of all separately billable procedures. Past Med/Surg History Medical History Cancer SKIN CANCER Deep vein thrombosis Hallucination Hearing deficit Hypothyroidism On home oxygen therapy NC OXYGEN AT NIGHT (UNSURE OF LITER) Peripheral neuropathy Psychosis Pulmonary embolism Seizure LAST EPISODE (THIS YEAR/UNSURE OF DATE) ? SEIZURE TYPE>FOLLOWS WITH DR. PHOENIX. OLD RECORDS NOTE EPILEPSY Sleep apnea NO DEVICE USED NOW (CPAP USED IN PAST) Surgical History History of adenoidectomy History of bilateral tubal ligation History of colonoscopy History of tonsillectomy History of tooth extraction Family History Mother Family hx of colon cancer Social History Smoking Status: Never smoker Second Hand Exposure: Yes; Hx Alcohol Use: No Hx Substance Use: No Preferred Language: Gabonese Communication Ability: Effective Proof Technician Required: No Beliefs That Will Affect Care: None Current Living Situation: Spouse Other Information That Helps Us Care for You: No Feels Safe at Home: Yes Safety Concerns: Feels Safe At This Time Assistive Devices: Walker Allergies Allergies Allergy/AdvReac Type Severity Reaction Status Date / Time No Known Allergies Allergy Verified 03/06/19 21:12 Home Meds Home Medications Medication Instructions Recorded Confirmed levothyroxine 75 mcg PO QAM 05/27/18 11/12/20 oxcarbazepine [Trileptal] 300 tab PO BID 05/27/18 11/12/20 warfarin 10 mg PO TUTH 05/27/18 11/12/20 divalproex 250 mg PO QPM 11/12/20 11/12/20 divalproex 500 mg PO QPM 11/12/20 11/12/20 warfarin 15 mg PO SUMOWEFRSA 11/12/20 11/12/20 Results & Data (ED) Laboratory Data Result diagrams: 11/13/20 04:41 11/13/20 04:41 Lab Results 11/12/20 11/12/20 11/12/20 Range/Units 09:12 09:12 09:12 WBC 12.38 H (4.8-10.8) K/uL RBC 4.68 (4.2-5.4) M/uL Hgb 14.8 (12.0-16.0) g/dL Hct 43.0 (37-47) % MCV 91.9 (80-100) fL MCH 31.6 (25-34) pg MCHC 34.4 (32-36) g/dL RDW Std Deviation 46.7 H (36.4-46.3) fL RDW Coeff of Benigno 14.0 (11.5-14.5) % Plt Count 267 (130-400) K/uL MPV 9.9 (7.4-10.4) fL Immature Gran % (Auto) 0.3 % Neut % (Auto) 84.9 % Lymph % (Auto) 4.9 % Candler % (Auto) 9.7 % Eos % (Auto) 0.0 % Baso % (Auto) 0.2 % Neut # (Auto) 10.51 H (1.4-6.5) K/uL Lymph # (Auto) 0.61 L (1.2-3.4) K/uL Candler # (Auto) 1.20 H (0.11-0.59) K/uL Eos # (Auto) 0.00 (0-0.5) K/uL Baso # (Auto) 0.02 (0-0.2) K/uL Immature Gran # (Auto) 0.04 H (0.00-0.02) K/uL PT 28.8 H (9.0-12.0) Seconds INR 3.1 H (0.9-1.1) Sodium 136 (136-145) mmol/L Potassium 3.9 (3.5-5.1) mmol/L Chloride 107 (98-107) mmol/L Carbon Dioxide 22 (21-32) mmol/L Anion Gap 8.0 (3-11) BUN 11 (7-18) mg/dl Creatinine 0.90 (0.6-1.2) mg/dl Est Cr Clr Drug Dosing Not Reportable Est GFR ( Amer) 75.6 Est GFR (Non-Af Amer) 65.2 BUN/Creatinine Ratio 12.7 (10-20) Glucose 118 H (70-99) mg/dl Calcium 9.1 (8.5-10.1) mg/dl Total Bilirubin 0.3 (0.2-1) mg/dl AST 34 (15-37) U/L ALT 27 (12-78) U/L Alkaline Phosphatase 81 (45-117) U/L Total Creatine Kinase 599 H (26-192) U/L NT-Pro-B Natriuret Pep (0-900) pg/ml Total Protein 8.0 (6.4-8.2) gm/dl Albumin 3.6 (3.4-5.0) gm/dl Globulin 4.4 H (2.5-4.0) gm/dl Albumin/Globulin Ratio 0.8 L (0.9-2) TSH 2.520 (0.300-4.500) uIu/ml Specimen Hemolysis Urine Color Urine Appearance (Clear) Urine pH (4.5-7.5) Ur Specific [place] (1.000-1.030) Urine Protein (Negative) Urine Glucose (UA) (Negative) Urine Ketones (Negative) Urine Blood (Negative) Urine Nitrite (Negative) Urine Bilirubin (Negative) Urine Urobilinogen (Negative) Ur Leukocyte Esterase (Negative) Urine WBC (Auto) (0-5) /hpf Urine RBC (Auto) (0-4) /hpf U Hyaline Cast (Auto) (0-5) /lpf U Epithel Cells (Auto) (0-5) /lpf Urine Bacteria (Auto) (Negative) Adenovirus (PCR) (NotDetected) B. pertussis DNA (PCR) (NotDetected) B.parapertussis DNA PCR (NotDetected) C. pneumoniae DNA (PCR) (NotDetected) Coronavirus OC43 (PCR) (NotDetected) Coronavirus HKU1 (PCR) (NotDetected) Coronavirus 229E (PCR) (NotDetected) COVID-19 Eval Order SARS-CoV-2 (PCR) (Negative) Coronavirus NL63 (PCR) (NotDetected) Human Metapneumovir PCR (NotDetected) Influenza Type A (PCR) (Neg) Influenza Type B (PCR) (Neg) M. pneumoniae (PCR) (NotDetected) Parainfluenza 1 (PCR) (NotDetected) Parainfluenza 2 (PCR) (NotDetected) Parainfluenza 3 (PCR) (NotDetected) Parainfluenza 4 (PCR) (NotDetected) RSV (RT-PCR) (Neg) RSV (PCR) (NotDetected) Entero/Rhino (PCR) (NotDetected) 11/12/20 11/12/20 11/12/20 Range/Units 09:12 09:30 11:25 WBC (4.8-10.8) K/uL RBC (4.2-5.4) M/uL Hgb (12.0-16.0) g/dL Hct (37-47) % MCV (80-100) fL MCH (25-34) pg MCHC (32-36) g/dL RDW Std Deviation (36.4-46.3) fL RDW Coeff of Benigno (11.5-14.5) % Plt Count (130-400) K/uL MPV (7.4-10.4) fL Immature Gran % (Auto) % Neut % (Auto) % Lymph % (Auto) % Candler % (Auto) % Eos % (Auto) % Baso % (Auto) % Neut # (Auto) (1.4-6.5) K/uL Lymph # (Auto) (1.2-3.4) K/uL Candler # (Auto) (0.11-0.59) K/uL Eos # (Auto) (0-0.5) K/uL Baso # (Auto) (0-0.2) K/uL Immature Gran # (Auto) (0.00-0.02) K/uL PT (9.0-12.0) Seconds INR (0.9-1.1) Sodium (136-145) mmol/L Potassium (3.5-5.1) mmol/L Chloride (98-107) mmol/L Carbon Dioxide (21-32) mmol/L Anion Gap (3-11) BUN (7-18) mg/dl Creatinine (0.6-1.2) mg/dl Est Cr Clr Drug Dosing Est GFR ( Amer) Est GFR (Non-Af Amer) BUN/Creatinine Ratio (10-20) Glucose (70-99) mg/dl Calcium (8.5-10.1) mg/dl Total Bilirubin (0.2-1) mg/dl AST (15-37) U/L ALT (12-78) U/L Alkaline Phosphatase (45-117) U/L Total Creatine Kinase (26-192) U/L NT-Pro-B Natriuret Pep 117 (0-900) pg/ml Total Protein (6.4-8.2) gm/dl Albumin (3.4-5.0) gm/dl Globulin (2.5-4.0) gm/dl Albumin/Globulin Ratio (0.9-2) TSH (0.300-4.500) uIu/ml Specimen Hemolysis Urine Color Dark Yellow Urine Appearance Clear (Clear) Urine pH 5.5 (4.5-7.5) Ur Specific [place] 1.027 (1.000-1.030) Urine Protein 2+ H (Negative) Urine Glucose (UA) Negative (Negative) Urine Ketones Trace H (Negative) Urine Blood Negative (Negative) Urine Nitrite Negative (Negative) Urine Bilirubin Negative (Negative) Urine Urobilinogen Negative (Negative) Ur Leukocyte Esterase Negative (Negative) Urine WBC (Auto) 1-5 (0-5) /hpf Urine RBC (Auto) 0-4 (0-4) /hpf U Hyaline Cast (Auto) 0 (0-5) /lpf U Epithel Cells (Auto) 0-5 (0-5) /lpf Urine Bacteria (Auto) Negative (Negative) Adenovirus (PCR) (NotDetected) B. pertussis DNA (PCR) (NotDetected) B.parapertussis DNA PCR (NotDetected) C. pneumoniae DNA (PCR) (NotDetected) Coronavirus OC43 (PCR) (NotDetected) Coronavirus HKU1 (PCR) (NotDetected) Coronavirus 229E (PCR) (NotDetected) COVID-19 Eval Order CovFluRsv at [facility] SARS-CoV-2 (PCR) (Negative) Coronavirus NL63 (PCR) (NotDetected) Human Metapneumovir PCR (NotDetected) Influenza Type A (PCR) (Neg) Influenza Type B (PCR) (Neg) M. pneumoniae (PCR) (NotDetected) Parainfluenza 1 (PCR) (NotDetected) Parainfluenza 2 (PCR) (NotDetected) Parainfluenza 3 (PCR) (NotDetected) Parainfluenza 4 (PCR) (NotDetected) RSV (RT-PCR) (Neg) RSV (PCR) (NotDetected) Entero/Rhino (PCR) (NotDetected) 11/12/20 11/12/20 Range/Units 11:25 11:25 WBC (4.8-10.8) K/uL RBC (4.2-5.4) M/uL Hgb (12.0-16.0) g/dL Hct (37-47) % MCV (80-100) fL MCH (25-34) pg MCHC (32-36) g/dL RDW Std Deviation (36.4-46.3) fL RDW Coeff of Benigno (11.5-14.5) % Plt Count (130-400) K/uL MPV (7.4-10.4) fL Immature Gran % (Auto) % Neut % (Auto) % Lymph % (Auto) % Candler % (Auto) % Eos % (Auto) % Baso % (Auto) % Neut # (Auto) (1.4-6.5) K/uL Lymph # (Auto) (1.2-3.4) K/uL Candler # (Auto) (0.11-0.59) K/uL Eos # (Auto) (0-0.5) K/uL Baso # (Auto) (0-0.2) K/uL Immature Gran # (Auto) (0.00-0.02) K/uL PT (9.0-12.0) Seconds INR (0.9-1.1) Sodium (136-145) mmol/L Potassium (3.5-5.1) mmol/L Chloride (98-107) mmol/L Carbon Dioxide (21-32) mmol/L Anion Gap (3-11) BUN (7-18) mg/dl Creatinine (0.6-1.2) mg/dl Est Cr Clr Drug Dosing Est GFR ( Amer) Est GFR (Non-Af Amer) BUN/Creatinine Ratio (10-20) Glucose (70-99) mg/dl Calcium (8.5-10.1) mg/dl Total Bilirubin (0.2-1) mg/dl AST (15-37) U/L ALT (12-78) U/L Alkaline Phosphatase (45-117) U/L Total Creatine Kinase (26-192) U/L NT-Pro-B Natriuret Pep (0-900) pg/ml Total Protein (6.4-8.2) gm/dl Albumin (3.4-5.0) gm/dl Globulin (2.5-4.0) gm/dl Albumin/Globulin Ratio (0.9-2) TSH (0.300-4.500) uIu/ml Specimen Hemolysis Urine Color Urine Appearance (Clear) Urine pH (4.5-7.5) Ur Specific [place] (1.000-1.030) Urine Protein (Negative) Urine Glucose (UA) (Negative) Urine Ketones (Negative) Urine Blood (Negative) Urine Nitrite (Negative) Urine Bilirubin (Negative) Urine Urobilinogen (Negative) Ur Leukocyte Esterase (Negative) Urine WBC (Auto) (0-5) /hpf Urine RBC (Auto) (0-4) /hpf U Hyaline Cast (Auto) (0-5) /lpf U Epithel Cells (Auto) (0-5) /lpf Urine Bacteria (Auto) (Negative) Adenovirus (PCR) Not Detected (NotDetected) B. pertussis DNA (PCR) Not Detected (NotDetected) B.parapertussis DNA PCR Not Detected (NotDetected) C. pneumoniae DNA (PCR) Not Detected (NotDetected) Coronavirus OC43 (PCR) Not Detected (NotDetected) Coronavirus HKU1 (PCR) Not Detected (NotDetected) Coronavirus 229E (PCR) Not Detected (NotDetected) COVID-19 Eval Order SARS-CoV-2 (PCR) NEGATIVE Not Detected (Negative) Coronavirus NL63 (PCR) Not Detected (NotDetected) Human Metapneumovir PCR Not Detected (NotDetected) Influenza Type A (PCR) Negative Not Detected (Neg) Influenza Type B (PCR) Negative Not Detected (Neg) M. pneumoniae (PCR) Not Detected (NotDetected) Parainfluenza 1 (PCR) Not Detected (NotDetected) Parainfluenza 2 (PCR) Not Detected (NotDetected) Parainfluenza 3 (PCR) Not Detected (NotDetected) Parainfluenza 4 (PCR) Not Detected (NotDetected) RSV (RT-PCR) Negative (Neg) RSV (PCR) Not Detected (NotDetected) Entero/Rhino (PCR) Not Detected (NotDetected) Administered Medications Acetaminophen (Acetaminophen 325 Mg Tab) 650 mg PO Q4H PRN PRN Reason: Pain or Fever Stop: 12/12/20 14:49 Last Admin: 11/13/20 10:55 Dose: 650 mg Documented by: [id number] Admin: 11/12/20 15:26 Dose: 650 mg Documented by: [id number] Albuterol (Albut/Ipratrop 3mg/0.5mg Neb 3 Ml Vial) 3 ml NEB ON LICENSE OF [facility] Stop: 12/12/20 14:59 Last Admin: 11/13/20 15:13 Dose: Not Given Documented by: [id number] Admin: 11/13/20 12:14 Dose: Not Given Documented by: [id number] Admin: 11/13/20 07:56 Dose: Not Given Documented by: [id number] Admin: 11/12/20 18:39 Dose: Not Given Documented by: [id number] Admin: 11/12/20 18:38 Dose: 3 ml Documented by: [id number] Aspirin (Aspirin 81 Mg Ectab) 81 mg PO [facility] Stop: 12/12/20 15:59 Last Admin: 11/13/20 09:23 Dose: 81 mg Documented by: [id number] Admin: 11/12/20 17:11 Dose: 81 mg Documented by: [id number] Atorvastatin Calcium (Atorvastatin 40 Mg Tab) 40 mg PO [facility] Stop: 12/12/20 15:59 Last Admin: 11/13/20 09:23 Dose: 40 mg Documented by: [id number] Admin: 11/12/20 17:11 Dose: 40 mg Documented by: [id number] Divalproex Sodium (Divalproex Extended Release 500 Mg Tab) 1,000 mg PO DAILY [facility] Stop: 12/12/20 14:59 Last Admin: 11/13/20 09:23 Dose: 1,000 mg Documented by: [id number] Admin: 11/12/20 17:11 Dose: 1,000 mg Documented by: [id number] Levothyroxine Sodium (Levothyroxine Sodium 75 Mcg Tablet) 75 mcg PO DAILYBB [facility] Stop: 12/13/20 06:29 Last Admin: 11/13/20 06:56 Dose: 75 mcg Documented by: [id number] Metoprolol Tartrate (Metoprolol Tartrate 25 Mg Tab) 25 mg PO BID SACHA Stop: 12/12/20 14:24 Last Admin: 11/13/20 09:23 Dose: 25 mg Documented by: [id number] Admin: 11/12/20 21:24 Dose: 25 mg Documented by: [id number] Admin: 11/12/20 15:39 Dose: 25 mg Documented by: [id number] Oxcarbazepine (Oxcarbazepine 150 Mg Tablet) 300 mg PO BID [facility] Stop: 12/12/20 20:59 Last Admin: 11/13/20 09:23 Dose: 300 mg Documented by: [id number] Admin: 11/12/20 21:24 Dose: 300 mg Documented by: [id number] Prednisone (Prednisone 20 Mg Tab) 40 mg PO DAILY [facility] Stop: 12/12/20 14:49 Last Admin: 11/13/20 09:23 Dose: 40 mg Documented by: [id number] Admin: 11/12/20 15:39 Dose: 40 mg Documented by: [id number] Discontinued Medications Albuterol (Albut/Ipratrop 3mg/0.5mg Neb 3 Ml Vial) 12 ml NEB ONE ONE Stop: 11/12/20 10:52 Last Admin: 11/12/20 11:38 Dose: 12 ml Documented by: [id number] Furosemide (Furosemide 40 Mg/4 Ml Vial) 40 mg IV NOW STA Stop: 11/12/20 11:25 Last Admin: 11/12/20 11:49 Dose: 40 mg Documented by: [id number] Gadobutrol (Gadobutrol 30ml Vial) 11 ml IV ONCE ONE Stop: 11/13/20 13:51 Last Admin: 11/13/20 13:53 Dose: 11 ml Documented by: [id number] Sodium Chloride (Nss 1000ml) 1,000 mls @ 999 mls/hr IV .[id number] ONE Stop: 11/12/20 10:04 Last Infusion: 11/12/20 10:53 Dose: 0 mls/hr Documented by: [id number] Admin: 11/12/20 09:44 Dose: 999 mls/hr Documented by: [id number] Sodium Chloride (Nss 1000ml) 1,000 mls @ 80 mls/hr IV .[id number] ASCHA Stop: 12/12/20 15:14 Last Infusion: 11/12/20 15:37 Dose: 0 mls/hr Documented by: [id number] Admin: 11/12/20 15:27 Dose: 80 mls/hr Documented by: [id number] Furosemide 40 mg/ Syringe 4 mls @ 4 mls/min IV ONE ONE Stop: 11/12/20 15:46 Last Admin: 11/12/20 17:11 Dose: 4 mls/min Documented by: [id number] Phytonadione 5 mg/ Sodium (Chloride) 50.5 mls @ 101 mls/hr IV NOW ONE Stop: 11/13/20 10:14 Last Infusion: 11/13/20 10:28 Dose: 0 mls/hr Documented by: [id number] Admin: 11/13/20 09:58 Dose: 101 mls/hr Documented by: [id number] Ioversol (Optiray 320 125ml) 120 ml IV ONCE ONE Stop: 11/12/20 14:37 Last Admin: 11/12/20 14:37 Dose: 120 ml Documented by: [id number] Nitroglycerin (Nitroglycerin 2% Ointment 30gm Tube) 1 inch EXT NOW STA Stop: 11/12/20 11:25 Last Admin: 11/12/20 11:49 Dose: 1 inch Documented by: [id number] Warfarin Sodium (Warfarin Sod 7.5 Mg Tab) 15 mg PO SUMOWEFRSA [facility] Stop: 12/12/20 14:49 Last Admin: 11/12/20 17:19 Dose: Not Given Documented by: [id number] Imaging Data Radiologist's Impression: Chest X-Ray 11/12/20 09:04 SINGLE VIEW CHEST CLINICAL HISTORY: Generalized weakness. FINDINGS: An AP, portable, upright chest radiograph is compared to study dated 03/06/2019. Correlation is made with chest CT dated 11/14/2007. The heart is mildly enlarged noting atherosclerotic calcification of the thoracic aorta. There is pulmonary vascular congestion. Chronic interstitial thickening is similar to previous. No airspace consolidation or large pleural effusion is identified. No large pleural effusion or pneumothorax is seen. The skeletal structures are osteopenic. The bony thorax is grossly intact. IMPRESSION: Mild pulmonary vascular congestion. ACT 112: Negative or not required by law. Electronically signed by: Janusz Casillas M.D. 11/12/2020 9:43 AM Discharge Plan Visit Data Chief Complaint: Weakness Stated Complaint: Weakness s/p seizure w/ fall hx epilepsy ED Provider: Lonnie Kirby Discharge Problem: Syncope, NSTEMI (non-ST elevated myocardial infarction) Patient Disposition: Admitted As Inpatient Discharge Instructions Interventions: ED Discharge Assessment Last Done: 11/12/20 14:44 Discharge Problem: Syncope Qualifiers: Syncope type: unspecified Qualified Code(s): R55 - Syncope and collapse
[2020-11-13] MEDS ORDERED: Heparin IV Adult Wt-Based Standard *NO* Bolus Protocol IV SCH (16:13)
[2020-11-13] MEDS: HEPARIN SODIUM/DEXTROSE 25,000 UNITS/500 ML BAG IV SCH (17:01)
[2020-11-13 23:54] LABS: Partial Thromboplastin Ratio 1.8
[2020-11-13 23:56] LABS: Partial Thromboplastin Time 47.1 Seconds (21.0-31.0)
[2020-11-14 05:18] LABS: Hematocrit (blood only) 38.4 % (37-47); Hemoglobin 13.2 g/dL (12.0-16.0); Mean Corpuscular Hemoglobin 31.3 pg (25-34); Mean Corpuscular Hgb Conc 34.4 g/dL (32-36); Mean Platelet Volume 10.2 fL (7.4-10.4); Platelet Count 235 K/uL (130-400); RDW Coefficient of Variation 14.1 % (11.5-14.5); RDW Standard Deviation 46.8 fL (36.4-46.3); Red Blood Count 4.22 M/uL (4.2-5.4); White Blood Count 11.56 K/uL (4.8-10.8)
[2020-11-14] MEDS: LEVOTHYROXINE SODIUM 75 MCG TABLET PO SCH (05:20)
[2020-11-14 05:29] LABS: INR 1.2 (0.9-1.1); Prothrombin Time 12.4 Seconds (9.0-12.0)
[2020-11-14 05:45] LABS: Partial Thromboplastin Ratio 1.9
[2020-11-14 05:56] LABS: Partial Thromboplastin Time 49.4 Seconds (21.0-31.0)
[2020-11-14 06:02] LABS: BUN Creatinine Ratio 25.2 (10-20); Calcium 8.2 mg/dl (8.5-10.1); Creatinine Clr Calc Pharmacy 105.8 ml/min; Est GFR (African American) 106.1; Est GFR (Non-African American) 91.5; Potassium 3.2 mmol/L (3.5-5.1)
[2020-11-14] MEDS: ALBUT/IPRATROP 3MG/0.5MG NEB 3 ML VIAL NEB SCH (07:27)
[2020-11-14] MEDS: METOPROLOL TARTRATE 25 MG TAB PO SCH ×2 (08:12→20:24)
[2020-11-14] MEDS: OXcarbazepine 150 MG TABLET PO SCH ×2 (08:13→20:23)
[2020-11-14] MEDS: predniSONE 20 MG TAB PO SCH (08:13)
[2020-11-14] MEDS: ATORVASTATIN 40 MG TAB PO SCH (08:13)
[2020-11-14] MEDS: ASPIRIN 81 MG ECTAB PO SCH (08:13)
[2020-11-14] MEDS: DIVALPROEX EXTENDED RELEASE 500 MG TAB PO SCH (08:13)
[2020-11-14] MEDS ORDERED: ALBUT/IPRATROP 3MG/0.5MG NEB 3 ML VIAL NEB PRN (08:34)
[2020-11-14] MEDS: POTASSIUM CHLORIDE / WTR 10 MEQ/100 ML PLCT IV SCH ×2 (09:27→10:54)
--- NOTE | 2020-11-14 09:37 | Hospitalist Progress Note ---
Date of Service November 14, 2020 Assessment & Plan (1) NSTEMI (non-ST elevated myocardial infarction): (2) Elevated troponin: (3) Elevated CPK: (4) Syncope and collapse: (5) History of DVT (deep vein thrombosis): (6) History of pulmonary embolism: (7) Elevated INR: (8) Leukocytosis: (9) Pulmonary vascular congestion: (10) Seizure: (11) Hypothyroid: (12) FORREST (obstructive sleep apnea): (13) Peripheral neuropathy: Patient c Acute Systolic CHF sec to NSTEMI. Cardiology on case, Cas, EKG- AnteriorLateral ST Depression, 2D echo-EF 40 % c Global Hypokinesis, Dr. Hutchison on case for the syncope, her Depakote was low so we loaded her on Depakote, Heart Cath for today Labs checked ROS-No Headache, No Visual Changes, No Nausea, No Vomiting, No Fever, No Chills, No Neck Pain or Stiffness, No Chest Pain, No Palpitations, No SOB, No MARQUEZ, positive cough, positive pink sputum, No Wheezing, No Abdominal Pain, No Diarrhea, No Hematemesis, No Hemoptysis, No Unexpected Weight Loss, No Flank pain, No Melena, No Hematochezia, No Frequency, No Urgency, No Burning, No Hematuria, No Rashes, No Diaphoresis. Physical Exam Gen-AAO x 3, NAD, Afebrile, obese Head-NCAT, EOMI, PERRLA, Anicteric Sclera, No Posterior Pharyngeal Erythema Neck-Supple, No JVD, No Thyromegaly, No Masses, No LAD, No Bruits Lungs-bilateral Rales, No Rhonchi, bilateral wheezing, No Crepitus Chest-No S4, +S1, +S2, No S3, No Murmurs, No Rubs, No Gallops, No Ectopy Abdomen-Soft, obese, bowel Sounds Present, Non Tender, Non Distended, No Hepatomegaly, No Splenomegaly, No Palpable Masses, No Rebound, No Rigidity, No Guarding Musculoskeletal-Full Range of Motion Bilaterally, No CVAT Extremities-No Cyanosis, No Clubbing, No Edema Nuero-Cranial Nerves II-XII grossly intact, Motor WNL, DTRs WNL, Strength WNL, Non Focal Psych-Normal Mood Admission and Anticipated Discharge Date Admission Date: November 12, 2020 Results & Data Results & Data ([facility]) Vital Signs (Past 12 Hours) Vital Signs Temp Pulse Pulse Resp BP BP Pulse Ox 11/14/20 08:25 92 H 15 126/75 93 11/14/20 08:20 87 22 93 11/14/20 08:10 89 26 H 96 11/14/20 08:00 90 24 93 11/14/20 07:50 92 H 28 H 94 11/14/20 07:40 88 25 H 98 11/14/20 07:30 90 86 24 92 11/14/20 07:20 101 H 21 87 L 11/14/20 07:10 87 26 H 95 11/14/20 07:00 95 H 23 96 11/14/20 06:50 92 H 14 91 11/14/20 06:40 87 27 H 94 11/14/20 06:30 90 22 94 11/14/20 06:20 102 H 27 H 88 L 11/14/20 06:10 90 16 95 11/14/20 06:00 88 22 92 11/14/20 05:50 89 20 92 11/14/20 05:40 87 22 91 11/14/20 05:30 88 19 93 11/14/20 05:20 94 H 23 90 11/14/20 05:10 88 24 94 11/14/20 05:00 87 17 93 11/14/20 04:50 87 13 93 11/14/20 04:40 84 19 91 11/14/20 04:30 85 17 91 11/14/20 04:20 86 22 92 11/14/20 04:12 37.4 C 93 H 21 128/82 90 11/14/20 04:10 105 H 17 128/82 88 L 11/14/20 04:00 83 19 92 11/14/20 03:50 88 26 H 92 11/14/20 03:40 85 21 90 11/14/20 03:30 89 21 91 11/14/20 03:20 85 20 93 11/14/20 03:10 86 23 91 11/14/20 03:00 83 21 92 11/14/20 02:50 82 21 89 L 11/14/20 02:40 84 22 91 11/14/20 02:30 80 21 90 11/14/20 02:20 83 20 89 L 11/14/20 02:10 80 17 93 11/14/20 02:00 81 19 91 11/14/20 01:50 98 H 22 90 11/14/20 01:40 97 H 17 91 11/14/20 01:30 88 22 91 11/14/20 01:20 83 20 91 11/14/20 01:10 82 26 H 89 L 11/14/20 01:00 83 24 88 L 11/14/20 00:50 88 25 H 91 11/14/20 00:40 84 33 H 90 11/14/20 00:30 88 34 H 90 11/14/20 00:20 88 20 91 11/14/20 00:00 37.1 C 91 H 19 117/81 93
[2020-11-14] MEDS: HEPARIN SODIUM/DEXTROSE 25,000 UNITS/500 ML BAG IV SCH (10:50)
[2020-11-14] MEDS ORDERED: POTASSIUM CHLORIDE CRTAB 20 MEQ TABCR PO STA (11:56)
--- NOTE | 2020-11-14 12:01 | Cardiology Progress Note ---
Date of Service November 14, 2020 Assessment & Plan (1) NSTEMI (non-ST elevated myocardial infarction): Patient with longstanding history of atypical seizure disorder presented with loss of consciousness episode, fall, and was noted to have transient ischemic ST depression on presenting EKG in the setting of sinus tachycardia 110 bpm, and an elevated troponin I that has peaked at 6.44 ng/ml. Patient without recent anginal complaints. Per discussion with her , she does have issues with short-term memory loss. Her CPK has been elevated also, she was likely on the floor for quite some time. Working diagnosis is that she has suffered a type II non-ST segment elevation microinfarction, the question is whether or not this is in the setting of underlying coronary heart disease or just due to underlying myocardial stress due to Noncardiac systemic illness. On presentation, she was wheezing, and felt to be volume overloaded both physical exam and CT of the chest, which improved after administration of furosemide. Echocardiogram revealed mild diffuse left ventricular action fraction 45% on presentation without regional wall motion abnormalities. She is on Coumadin on a chronic basis due to past history of knee. Her INR was down to 1.9 yesterday status post receiving 5 mg of vitamin K, and is 1.2 today. She is on a heparin bridge. I discussed developments as noted above her , Kenny, by phone to be at the bedside due to [facility] visitation restrictions. I recommend proceeding with cardiac catheterization perhaps today or tomorrow for further delineation. He was in favor of this. As was the patient. Patient received supplemental potassium this morning, an additional oral dose will be administered. Continue remaining medications including metoprolol, aspirin, atorvastatin. Admission and Anticipated Discharge Date Admission Date: November 12, 2020 Subjective Patient seen in follow-up. Feeling well, denies chest discomfort or shortness of breath. Telemetry reveals sinus rhythm in the 70s to 80s. Heparin infusion ongoing. No bleeding problems. Physical Exam Physical Exam: Temp Pulse Resp BP Pulse Ox 37.4 C 92 H 15 126/75 93 11/14/20 04:12 11/14/20 08:25 11/14/20 08:25 11/14/20 08:25 11/14/20 08:25 Constitutional: WD/WN, vitals as above Respiratory: normal respiratory effort, lungs clear to auscultation Cardiovascular: RRR, no murmur, no edema Gastrointestinal (Abdomen): normal bowel sounds, soft, nontender, no hepatosplenomegaly Neurologic: PERRL, EOMI, accommodation nl, no face palsy, no dysarthria Results & Data ([facility]) Vital Signs (Past 12 Hours) Vital Signs Temp Pulse Pulse Resp BP BP Pulse Ox 11/14/20 08:25 92 H 15 126/75 93 11/14/20 08:20 87 22 93 11/14/20 08:10 89 26 H 96 11/14/20 08:00 92 H 24 93 11/14/20 07:50 92 H 28 H 94 11/14/20 07:40 88 25 H 98 11/14/20 07:30 90 86 24 92 11/14/20 07:20 101 H 21 87 L 11/14/20 07:10 87 26 H 95 11/14/20 07:00 95 H 23 96 11/14/20 06:50 92 H 14 91 11/14/20 06:40 87 27 H 94 11/14/20 06:30 90 22 94 11/14/20 06:20 102 H 27 H 88 L 11/14/20 06:10 90 16 95 11/14/20 06:00 88 22 92 11/14/20 05:50 89 20 92 11/14/20 05:40 87 22 91 11/14/20 05:30 88 19 93 11/14/20 05:20 94 H 23 90 11/14/20 05:10 88 24 94 11/14/20 05:00 87 17 93 11/14/20 04:50 87 13 93 11/14/20 04:40 84 19 91 11/14/20 04:30 85 17 91 11/14/20 04:20 86 22 92 11/14/20 04:12 37.4 C 93 H 21 128/82 90 11/14/20 04:10 105 H 17 128/82 88 L 11/14/20 04:00 83 19 92 11/14/20 03:50 88 26 H 92 11/14/20 03:40 85 21 90 11/14/20 03:30 89 21 91 11/14/20 03:20 85 20 93 11/14/20 03:10 86 23 91 11/14/20 03:00 83 21 92 11/14/20 02:50 82 21 89 L 0406/21 02:40 84 22 91 11/14/20 02:30 80 21 90 11/14/20 02:20 83 20 89 L 11/14/20 02:10 80 17 93 11/14/20 02:00 81 19 91 11/14/20 01:50 98 H 22 90 11/14/20 01:40 97 H 17 91 11/14/20 01:30 88 22 91 11/14/20 01:20 83 20 91 11/14/20 01:10 82 26 H 89 L 11/14/20 01:00 83 24 88 L 11/14/20 00:50 88 25 H 91 11/14/20 00:40 84 33 H 90 11/14/20 00:30 88 34 H 90 11/14/20 00:20 88 20 91 11/14/20 00:00 37.1 C 91 H 19 117/81 93 Laboratory Results Coagulation 11/13/20 11/13/20 11/14/20 Range/Units 14:44 23:27 04:49 PT 18.4 H 12.4 H (9.0-12.0) Seconds APTT 47.1 H* (21.0-31.0) Seconds 11/14/20 Range/Units 05:14 PT (9.0-12.0) Seconds APTT 49.4 H* (21.0-31.0) Seconds CBC 11/14/20 Range/Units 04:49 WBC 11.56 H (4.8-10.8) K/uL RBC 4.22 (4.2-5.4) M/uL Hgb 13.2 (12.0-16.0) g/dL Hct 38.4 (37-47) % Plt Count 235 (130-400) K/uL Comprehensive Metabolic Panel 11/14/20 Range/Units 04:49 Sodium 137 (136-145) mmol/L Potassium 3.2 L D (3.5-5.1) mmol/L Chloride 105 (98-107) mmol/L Carbon Dioxide 25 (21-32) mmol/L BUN 16 D (7-18) mg/dl Creatinine 0.63 (0.6-1.2) mg/dl Glucose 91 (70-99) mg/dl Calcium 8.2 L (8.5-10.1) mg/dl Intake and Output 11/13/20 11/14/20 11/14/20 22:59 06:59 14:59 Intake Total 377.484 / 627.984 222.516 / 222.516 Output Total 400 / 900 250 / 900 Balance -400 / -272.016 127.484 / -272.016 222.516 / 222.516 Intake: IV 377.484 / 427.984 222.516 / 222.516 HEPARIN SODIUM/DEXTROSE 25,000 377.484 / 377.484 122.516 / 122.516 units In 500 ml @ 1,450 UNITS/ HR 29 mls/hr IV .[id number] [facility] Rx #:[id number] K RIDER / WTR 10 meq In 100 ml 100 / 100 @ 100 mls/hr IV Q1H [facility] Rx#: [id number] Output: Urine Amount (Catheter) 400 / 900 250 / 900 Mcclain/Indwelling 400 / 900 250 / 900
[2020-11-14] MEDS ORDERED: WARFARIN SOD 10 MG TAB PO SCH (13:05)
[2020-11-14] MEDS ORDERED: fentaNYL citrate 100 MCG/2 ML VIAL ONE (14:38)
[2020-11-14] MEDS ORDERED: niCARdipine HCL INJ 2.5 MG/ML 10 ML AMP ONE (14:38)
[2020-11-14] MEDS ORDERED: HEPARIN (PORCINE) 1000 UNIT/ML 10 ML (CATH LAB USE ONLY) ONE (14:38)
[2020-11-14] MEDS ORDERED: MIDAZOLAM HCL 1 MG/ML 2ML VIAL ONE (14:38)
[2020-11-14] MEDS ORDERED: NITROGLYCERIN/D5W 100MCG/ML 20ML SYR ONE (14:38)
--- NOTE | 2020-11-14 14:45 | Pre Anesthesia Assessment ---
Date of Service November 14, 2020 Pre Sedation Assessment Vital Signs Temp Pulse Pulse Resp BP BP Pulse Ox 11/14/20 13:23 85 20 153/94 H 91 11/14/20 08:25 92 H 15 126/75 93 11/14/20 08:20 87 22 93 11/14/20 08:10 89 26 H 96 11/14/20 08:00 92 H 24 93 11/14/20 07:50 92 H 28 H 94 11/14/20 07:40 88 25 H 98 11/14/20 07:30 90 86 24 92 11/14/20 07:20 101 H 21 87 L 11/14/20 07:10 87 26 H 95 11/14/20 07:00 95 H 23 96 11/14/20 06:50 92 H 14 91 11/14/20 06:40 87 27 H 94 11/14/20 06:30 90 22 94 11/14/20 06:20 102 H 27 H 88 L 11/14/20 06:10 90 16 95 11/14/20 06:00 88 22 92 11/14/20 05:50 89 20 92 11/14/20 05:40 87 22 91 11/14/20 05:30 88 19 93 11/14/20 05:20 94 H 23 90 11/14/20 05:10 88 24 94 11/14/20 05:00 87 17 93 11/14/20 04:50 87 13 93 11/14/20 04:40 84 19 91 11/14/20 04:30 85 17 91 11/14/20 04:20 86 22 92 11/14/20 04:12 99.3 F 93 H 21 128/82 90 11/14/20 04:10 105 H 17 128/82 88 L 11/14/20 04:00 83 19 92 11/14/20 03:50 88 26 H 92 11/14/20 03:40 85 21 90 11/14/20 03:30 89 21 91 11/14/20 03:20 85 20 93 11/14/20 03:10 86 23 91 11/14/20 03:00 83 21 92 11/14/20 02:50 82 21 89 L 11/14/20 02:40 84 22 91 11/14/20 02:30 80 21 90 11/14/20 02:20 83 20 89 L 11/14/20 02:10 80 17 93 11/14/20 02:00 81 19 91 11/14/20 01:50 98 H 22 90 11/14/20 01:40 97 H 17 91 11/14/20 01:30 88 22 91 11/14/20 01:20 83 20 91 11/14/20 01:10 82 26 H 89 L 11/14/20 01:00 83 24 88 L 11/14/20 00:50 88 25 H 91 11/14/20 00:40 84 33 H 90 11/14/20 00:30 88 34 H 90 11/14/20 00:20 88 20 91 11/14/20 00:00 98.8 F 91 H 19 117/81 93 11/13/20 20:00 99.1 F 97 H 22 162/95 H 92 11/13/20 19:59 90 16 93 11/13/20 15:13 90 20 92 Cardiovascular RRR, no murmur, no edema Respiratory normal respiratory effort, lungs clear to auscultation Pre-Sedation Airway Assessment Smoking Status: Never smoker Hx Sleep Apnea: No Hx Difficult Intubation: No Short, Thick Neck: No Oral Cavity: + Dentures Mallampati Class: II ASA: ASA3 NPO Status Date of Last Intake of Fluids: 11/13/20 Date of Last Intake of Solid Food: 11/13/20 Procedure Planning Contraindications for Sedation: none Current Medications Reviewed: Yes Notes The planned sedation has been discussed with the patient. Informed Consent was obtained. I have identified the patient, determined the appropriateness of sedation and have assessed the patient immediately prior to the procedure. All medicine(s) and interventions are by my order.
--- NOTE | 2020-11-14 15:04 | Post Anesthesia Assessment ---
Date of Service November 14, 2020 Post Sedation Assessment Vital Signs Temp Pulse Pulse Resp BP BP Pulse Ox 11/14/20 13:23 85 20 153/94 H 91 11/14/20 08:25 92 H 15 126/75 93 11/14/20 08:20 87 22 93 11/14/20 08:10 89 26 H 96 11/14/20 08:00 92 H 24 93 11/14/20 07:50 92 H 28 H 94 11/14/20 07:40 88 25 H 98 11/14/20 07:30 90 86 24 92 11/14/20 07:20 101 H 21 87 L 11/14/20 07:10 87 26 H 95 11/14/20 07:00 95 H 23 96 11/14/20 06:50 92 H 14 91 11/14/20 06:40 87 27 H 94 11/14/20 06:30 90 22 94 11/14/20 06:20 102 H 27 H 88 L 11/14/20 06:10 90 16 95 11/14/20 06:00 88 22 92 11/14/20 05:50 89 20 92 11/14/20 05:40 87 22 91 11/14/20 05:30 88 19 93 11/14/20 05:20 94 H 23 90 11/14/20 05:10 88 24 94 11/14/20 05:00 87 17 93 11/14/20 04:50 87 13 93 11/14/20 04:40 84 19 91 11/14/20 04:30 85 17 91 11/14/20 04:20 86 22 92 11/14/20 04:12 99.3 F 93 H 21 128/82 90 11/14/20 04:10 105 H 17 128/82 88 L 11/14/20 04:00 83 19 92 11/14/20 03:50 88 26 H 92 11/14/20 03:40 85 21 90 11/14/20 03:30 89 21 91 11/14/20 03:20 85 20 93 11/14/20 03:10 86 23 91 11/14/20 03:00 83 21 92 11/14/20 02:50 82 21 89 L 11/14/20 02:40 84 22 91 11/14/20 02:30 80 21 90 11/14/20 02:20 83 20 89 L 11/14/20 02:10 80 17 93 11/14/20 02:00 81 19 91 11/14/20 01:50 98 H 22 90 11/14/20 01:40 97 H 17 91 11/14/20 01:30 88 22 91 11/14/20 01:20 83 20 91 11/14/20 01:10 82 26 H 89 L 11/14/20 01:00 83 24 88 L 11/14/20 00:50 88 25 H 91 11/14/20 00:40 84 33 H 90 11/14/20 00:30 88 34 H 90 11/14/20 00:20 88 20 91 11/14/20 00:00 98.8 F 91 H 19 117/81 93 11/13/20 20:00 99.1 F 97 H 22 162/95 H 92 11/13/20 19:59 90 16 93 11/13/20 15:13 90 20 92 Recovery Score Activity: Moves 4 extremities Respiration: Deep Breath/Cough Circulation: +/-20% PreAnes Value Consciousness: Fully Awake Oxygen Saturation: O2 needed for >90% Discharge Sedation Level of Care: Fast Track Phase II Post Sedation Plan On clinical assessment, the patient appears to have tolerated the sedation without complications. Patient is recovering as anticipated. Patient will continue to be monitored by nursing and may be discharged when sedation discharge criteria are met per below protocol. Upon Completions of procedure up to 15 minutes continue every 5 minute vital signs and the P.A.R. score; then discharge to a Phase I or Fast Track to Phase II per the following guidelines: * Discharge Patient to appropriate Phase II area if PAR is 8 or greater or return to pre- procedure baseline. The post - procedure orders will be as directed. * If PAR score is less than 8 or not return to pre-procedure baseline then patient will follow Phase I monitoring till PAR is reached for Phase II. The Phase I may be done in procedure room or may call to secure a Phase I area. * If naloxone or flumazenil are used for reversal, hold in Phase I for continued monitoring from when last reversal dose was given for a minimum of 60 minutes or longer pending the nurse and/or physician discretion of patient condition before discharge to Phase II. Please call the Sedation Physician to re-evaluate and complete post-note for discharge to Phase II area. Do NOT discharge from procedure sedation or Phase 1 until post- sedation evaluation note is complete by procedure /sedation MD Sedation Discharge Instructions to be given to the patient at discharge to home.
--- NOTE | 2020-11-14 15:07 | Cardiac Catheterization ---
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 Cardiac Status Clinical evaluation leading to the procedure CAD Presenation: Non STEMI Anginal Classification: CCS III Heart Failure: No Cardiogenic Shock within 24 Hours: No Cardiac Arrest within 24 Hours: No Imaging Studies Past 6 Months: Yes Stress Studies Past 6 Months: No Diagnostic Physicians Name: Taurus Francisco MD Closure Device Percutaneous Entry Location: Radial Closure Device: Radial Band Recommendations: Medical Therapy and/or Counseling Intraprocedure Events Significant Disection: No Perforation: No Cardiac Cath Procedure Full Procedure Date November 14, 2020 Pre-Procedure Diagnosis Pre-Procedure Diagnosis: Non STEMI AUC Score AUC Score: 8 Post-Procedure Diagnosis Post-Procedure Diagnosis: Mild CAD and Elevated Intracardiac Pressures Procedure(s) Performed Procedure(s) Performed: Coronary Angiography and Left Heart Cath Sales Consultant Residential Manager Taurus Francisco MD Lumber Mover(s) [place] Estimated Blood Loss Estimated Blood Loss: 10 Medication(s) Medication(s): Fentanyl, Heparin, Lidocaine 1%, Nicardipine, Nitroglycerin and Versed Summary of Findings Indication: Elevated troponin Access: 6 Fr right radial artery Catheters: [place] Findings: LM -normal caliber, no significant disease LAD -medium caliber, distal luminal regularities. Large D1 without significant disease. Ramusmedium caliber, no significant disease Circumflex -large caliber, 20% ostial. Remainder of vessel without significant disease. RCA -large caliber, dominant, mid segment luminal irregularities. Luminal irregularities and small PDA. LVEDP -24 Arterial Closure: TR band Summary: 1. Minimal nonobstructive coronary artery disease -20% ostial circumflex 2. Elevated intracardiac filling pressure Recommendations: Continued ASCVD risk factor modification per Dr. Kwan. Hemodynamics Rest Ao:: 115/73/92 Final Ao: 120/75/93 LV: 122/24 Recommendations Recommendations: Medical Therapy and/or Counseling Specimens Specimens: None Radiation Exposure (mGy) 910 Contrast (mls) 35 Fluids (cc crystalloids) Fluids (cc crystalloids): 70 Drains Drains: None Anesthesia Moderate [id number] Procedural Complication(s) None Disposition PCU I attest to the content of the Intraoperative Record and any orders documented therein. Any exceptions are noted below. [email or web address] Card Cath Procedure Codes Cardiac Catheterization Procedure 1: Cardiovascular Cath Procedures: 32545 Coronaries and LHC (+/-LV) Moderate Sedation Procedure 1: Sedation/Anesthesia: 48958 Mod Sedation by the same physician;Init15 Min Child Age 5 & Up PG Care Time/CCT Total # of Minutes Spent Total Time Spent with Patient: Total time spent is greater than 50% in coordination of care (as documented) at patient's floor/unit and/or counseling patient:
[2020-11-14] MEDS ORDERED: WARFARIN SOD 10 MG TAB PO ONE (15:13)
--- NOTE | 2020-11-14 15:17 | Communication Note ---
Date of Service: November 14, 2020 Catheterization results reviewed with Dr Francisco, images reviewed. Angiographically normal coronaries. DC heparin bridge in effort to reduce risk of hematoma at catheterization site. Resume Coumadin 10 mg x 1 today, check INR tomorrow.
[2020-11-14] MEDS ORDERED: SODIUM CHLORIDE 0.9% 1000ML 1,000 ML IV SCH (15:30)
[2020-11-14] MEDS: ACETAMINOPHEN 325 MG TAB PO PRN (22:04)
[2020-11-15] MEDS ORDERED: BACLOFEN 10 MG TAB PO STA (02:15)
[2020-11-15 05:16] LABS: Hematocrit (blood only) 39.1 % (37-47); Hemoglobin 13.3 g/dL (12.0-16.0); Mean Corpuscular Hemoglobin 31.3 pg (25-34); Mean Platelet Volume 10.2 fL (7.4-10.4); Platelet Count 223 K/uL (130-400); RDW Coefficient of Variation 14.1 % (11.5-14.5); Red Blood Count 4.25 M/uL (4.2-5.4)
[2020-11-15] MEDS: LEVOTHYROXINE SODIUM 75 MCG TABLET PO SCH (05:29)
[2020-11-15 05:45] LABS: Calcium 8.3 mg/dl (8.5-10.1); Creatinine Clr Calc Pharmacy 114.9 ml/min; Potassium 3.7 mmol/L (3.5-5.1)
[2020-11-15 06:54] LABS: INR 1.1 (0.9-1.1); Prothrombin Time 10.9 Seconds (9.0-12.0)
[2020-11-15] MEDS: ACETAMINOPHEN 325 MG TAB PO PRN (07:13)
[2020-11-15] MEDS: ASPIRIN 81 MG ECTAB PO SCH (08:06)
[2020-11-15] MEDS: DIVALPROEX EXTENDED RELEASE 500 MG TAB PO SCH (08:06)
[2020-11-15] MEDS: METOPROLOL TARTRATE 25 MG TAB PO SCH (08:06)
[2020-11-15] MEDS: ATORVASTATIN 40 MG TAB PO SCH (08:06)
[2020-11-15] MEDS: predniSONE 20 MG TAB PO SCH (08:06)
[2020-11-15] MEDS: OXcarbazepine 150 MG TABLET PO SCH (08:06)
[2020-11-15] MEDS ORDERED: LOSARTAN POTASSIUM 25 MG TAB PO SCH (10:45)
[2020-11-15] MEDS ORDERED: WARFARIN SOD 10 MG TAB PO STA (12:45)
--- NOTE | 2020-11-15 12:47 | Cardiology Progress Note ---
Date of Service November 15, 2020 Assessment & Plan (1) NSTEMI (non-ST elevated myocardial infarction): Patient with longstanding history of seizure disorder, presented with a loss of consciousness episode, prolonged time on the floor. Troponin peaked at 6.4, with transient ischemic EKG changes noted on presentation to the emergency room which have since resolved. Cardiogram performed in the setting of sinus tachycardia 110 bpm, revealed mild diffuse global left ventricular hypokinesis, LVEF 40-45%. Cardiac catheterization revealed no obstructive coronary culprit, 20% ostial circumflex (2) Pulmonary vascular congestion: Perhaps there is a component of high blood pressure related cardiomyopathy. Pressures have been moderately elevated. LVEDP elevated at time of cardiac catheterization. Pulmonary edema noted on initial presentation, with associated hypoxia, wheezing, vascular congestion on CT scan. (3) Syncope: History suggests recurrent neurologic episode rather than cardiac syncope/arrhythmia event. 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 Discontinue prednisone. I believe her wheezing was due to status -Follow-up with PCP and cardiology, cardiology appointment can be in about a month. RADIAL CATHETERIZATION INSTRUCTIONS: ACTIVITY RECOMMENDATIONS: Excess manipulation of the wrist should be avoided for the next 24-48 hours. * No lifting over 2 pounds (approximately a 1/2 gallon of milk) with the utilized arm for 24 hours. * No strenuous activity such as bowling or tennis for 3 days. * Keep the site of the procedure covered with a bandage for 24 hours. *You may shower the day after the procedure. Do not take a tub bath or submerge the puncture site in water for the next 3 days. *Do not operate any motorized equipment for 3 days. SPECIAL CARE INSTRUCTIONS: The site may be slightly bruised and sore following your procedure. Should any of the following occur, contact the Dr. who performed your procedure. 1. Redness/inflammation, swelling, chills, or fever, or colored drainage at procedure site within 3-7 days after your procedure. 2. Coldness, discoloration, ongoing numbness, severe pain, or swelling. Expect mild tingling of hand and tenderness at the puncture site for up to three days. If this persists beyond three days, or other symptoms develop, notify the Dr. who performed your procedure. BLEEDING: If the procedure site on your wrist begins to bleed, do not panic 1. Place 1 or 2 fingers firmly just slightly above the insertion site to stop the bleeding. You may be able to feel your pulse as you hold pressure. 2. Lift your finger after 5 minutes to see if the bleeding has stopped. 3. Once the bleeding has stopped, gently wipe the wrist area clean with a bandage. * If the bleeding from your wrist does not stop after 10 minutes, or if there is a large amount of bleeding or spurting, call 911 (do not drive yourself to the hospital). SKIN IRRITATION: * You may experience some redness and/or swelling in the area where radiation was administered. If any skin irritation occurs, please contact your family physician. FOLLOW UP VISIT: Keep any scheduled doctor appointments. Admission and Anticipated Discharge Date Admission Date: November 12, 2020 Subjective Patient seen in follow-up. She is out of bed in the chair. Right radial catheterization site clean dry and intact, no hematoma. Blood pressures had been elevated yesterday and again this morning, most recent measurement this morning 161/101. No arrhythmias noted on telemetry. Review of Systems Review of Systems: All systems reviewed & are unremarkable except as noted in HPI & below Physical Exam Physical Exam: Temp Pulse Resp BP Pulse Ox 37.0 C 83 19 161/101 H 95 11/15/20 07:39 11/15/20 08:00 11/15/20 07:39 11/15/20 07:39 11/15/20 07:39 Respiratory: normal respiratory effort, lungs clear to auscultation Cardiovascular: RRR, no murmur, no edema Right radial access site clean dry and intact Gastrointestinal (Abdomen): normal bowel sounds, soft, nontender, no hepatosplenomegaly Neurologic: PERRL, EOMI, accommodation nl, no face palsy, no dysarthria Results & Data ([facility]) Vital Signs (Past 12 Hours) Vital Signs Temp Pulse Pulse Resp BP BP Pulse Ox 11/15/20 08:00 83 11/15/20 07:39 37.0 C 84 19 161/101 H 95 11/15/20 04:05 36.6 C 94 11/15/20 04:00 73 17 87 L 11/15/20 03:41 76 18 124/98 89 L Laboratory Results Coagulation 11/15/20 Range/Units 04:59 PT 10.9 (9.0-12.0) Seconds CBC 11/15/20 Range/Units 04:59 WBC 11.40 H (4.8-10.8) K/uL RBC 4.25 (4.2-5.4) M/uL Hgb 13.3 (12.0-16.0) g/dL Hct 39.1 (37-47) % Plt Count 223 (130-400) K/uL Comprehensive Metabolic Panel 11/15/20 Range/Units 04:59 Sodium 138 (136-145) mmol/L Potassium 3.7 D (3.5-5.1) mmol/L Chloride 108 H (98-107) mmol/L Carbon Dioxide 25 (21-32) mmol/L BUN 14 (7-18) mg/dl Creatinine 0.58 L (0.6-1.2) mg/dl Glucose 86 (70-99) mg/dl Calcium 8.3 L (8.5-10.1) mg/dl Intake and Output 11/14/20 11/15/20 11/15/20 22:59 06:59 14:59 Intake Total 385.817 / 708.333 Output Total 1874 / 1874 Balance -439.183 / -1166.667 -300 / -1166.667 Intake: IV 385.817 / 708.333 HEPARIN SODIUM/DEXTROSE 25,000 135.817 / 258.333 units In 500 ml @ 1,450 UNITS/ HR 29 mls/hr IV .[id number] [facility] Rx #:[id number] Nss 1000ML 1,000 ml @ 100 mls/ 250 / 250 hr IV .Q10H [facility] Rx#:[id number] Output: Urine Amount (Catheter) [id number] 300 / 1874 Mcclain/Indwelling [id number] (1) Syncope Syncope type: unspecified Qualified Code(s): R55 - Syncope and collapse
[2020-11-15] MEDS ORDERED: FUROSEMIDE 20 MG TAB PO SCH (13:00)
--- NOTE | 2020-11-15 14:57 | Discharge Summary ---
Date of Service November 15, 2020 Admission HPI Per Admitting Provider 70-year-old female with a past medical history of pulmonary embolism, deep vein thrombosis, pyelonephritis, rib fractures, fall, UTI, skin cancer, hallucinations, hard of hearing, hypothyroidism, obstructive sleep apnea syndrome, peripheral neuropathy, psychosis, and a seizure disorder. She sees Dr. Hutchison as an outpatient. She said she woke up this morning to go to the bathroom and then when she woke up she was on the floor, she does not know how long she was out and she called for her for help. He was unable to lift her up so they called 911 and came to the [facility] emergency room. Per the emergency room nurse she was doing fine, but then her sats dropped into the low 80s and she put her on 2 L of oxygen and only came up to 91. She was wheezing and had a pink tinge sputum. She denies any headache, fevers, chills, or headache. She did note that when she woke up she was on her knees in the bathroom. In the emergency room she was found to be tachycardic, hypoxic, and wheezing. Admission Exam Per Admitting Provider Gen-AAO x 3, NAD, Afebrile, obese Head-NCAT, EOMI, PERRLA, Anicteric Sclera, No Posterior Pharyngeal Erythema Neck-Supple, No JVD, No Thyromegaly, No Masses, No LAD, No Bruits Lungs-bilateral Rales, No Rhonchi, bilateral wheezing, No Crepitus Chest-No S4, +S1, +S2, No S3, No Murmurs, No Rubs, No Gallops, No Ectopy Abdomen-Soft, obese, bowel Sounds Present, Non Tender, Non Distended, No Hepatomegaly, No Splenomegaly, No Palpable Masses, No Rebound, No Rigidity, No Guarding Musculoskeletal-Full Range of Motion Bilaterally, No CVAT Extremities-No Cyanosis, No Clubbing, No Edema Nuero-Cranial Nerves II-XII grossly intact, Motor WNL, DTRs WNL, Strength WNL, Non Focal Psych-Normal Mood Principal Diagnosis (1) NSTEMI (non-ST elevated myocardial infarction): (2) Elevated troponin: (3) Elevated CPK: (4) Syncope and collapse: Discharge Exam General: A&Ox3 HENT: NCAT, MMM, EOMI Eyes: PERRLA Neck: Supple, normal range of motion CVS: normal rate and rhythm Resp: b/l good breath sounds Abdomen: Soft, ND/NT, +BS Extremities: No c/c/e Neuro: face symmetric, strength grossly equal, no focal deficit Skin: warm and dry, no rashes/lesions/errythema MSK: normal ROM, no joint swelling/erythema Discharge Data Allergies Allergy/AdvReac Type Severity Reaction Status Date / Time No Known Allergies Allergy Verified 03/06/19 21:12 Consultations 11/12/20 11:36 ED Decision to Admit Stat 11/12/20 14:50 Consult Neurology Routine 11/13/20 07:12 Consult Cardiology Routine Procedures Performed Operation Date: 11/14/20 13:30 Actual Procedures p Cineradiography w/Routine Exam - Everardo Francisco MD Ordered Studies 11/12/20 12:44 CT angio chest PE protocol Stat CT head/brain wo con Stat 11/13/20 08:00 MR brain seizure wo/w con Routine 11/14/20 13:24 CL Cath Imgs for PACS use only Routine Hospital Course (1) NSTEMI (non-ST elevated myocardial infarction): (2) Elevated troponin: (3) Elevated CPK: (4) Syncope and collapse: (5) History of DVT (deep vein thrombosis): (6) History of pulmonary embolism: (7) Elevated INR: (8) Leukocytosis: (9) Pulmonary vascular congestion: (10) Seizure: (11) Hypothyroid: (12) FORREST (obstructive sleep apnea): (13) Peripheral neuropathy: Patient is 70-year-old female who was admitted with loss of consciousness after prolonged time on the floor. Denies history of seizure disorder. Was found to have elevated cardiac enzymes. Cardiology was consulted. Cardiac catheterization was performed which revealed none obstructive coronary disease with a 20% ostial circumflex. Her syncope was likely secondary to neurological episode but then arrhythmic as per cardiology. Patient is stable for discharge on the following medications from cardiac perspective Aspirin 81 mg daily Metoprolol succinate 25 mg daily losartan 25 mg daily Furosemide 20 mg daily Atorvastatin 40 mg daily Continue [employer] Coumadin. Neurology was also consulted. Depakote dose was increased. Patient needs Depakote levels as an outpatient and 72-hour EEG monitoring. On the day of discharge patient was doing okay. Hemodynamically she was doing fine. She did not have any major complaints. Discharged in stable condition. Patient needs to follow-up with cardiology and neurology as an outpatient. Total Time Total Time Spent Total Time Spent (In Minutes): 35 Discharge Plan Discharge Items Patient Disposition: Home - Self-Care Reason For Visit: HYPOXIA Discharge Diagnosis: (1) NSTEMI (non-ST elevated myocardial infarction): (2) Elevated troponin: (3) Elevated CPK: (4) Syncope and collapse: Activity: Resume your previous activity Non-emergency contact: Primary Care Provider Call non-emergency contact if: your symptoms worsen Follow-up/Referrals: Grady Fu DO [Primary Care Provider] - (Date & Time 11/20/2020 11:20 AM Provider Grady Fu DO Department General Internal Medicine [facility] ) Diet: Heart Healthy Addtl Attending Provider Instructions: Follow-up with primary care physician and neurology as an outpatient. Continue your Coumadin as you were prior to admission. Follow-up with Coumadin clinic/PCP for INR level tomorrow. Pending Studies at Discharge: No Stand-Alone Forms: [facility] [employer], Smoking Cessation Medications and DC Order Prescriptions: New atorvastatin 40 mg Tablet 40 mg PO QAM Qty: 30 RF: 0 aspirin 81 mg Tablet,Delayed Release (Dr/Ec) 81 mg PO QAM 30 Days Qty: 30 RF: 0 losartan 25 mg Tablet 25 mg PO QAM Qty: 30 RF: 0 furosemide 20 mg Tablet 20 mg PO QAM 30 Days Qty: 30 RF: 0 metoprolol succinate 25 mg Tablet Extended Release 24 Hr 25 mg PO QAM Qty: 30 RF: 0 Continued oxcarbazepine [Trileptal] 150 mg Tablet 300 tab PO BID RF: 0 warfarin 10 mg Tablet 10 mg PO TUTH RF: 0 levothyroxine 75 mcg Capsule 75 mcg PO QAM RF: 0 warfarin 10 mg tablet 15 mg PO SUMOWEFRSA RF: 0 Changed divalproex 500 mg tablet extended release 24 hr 1,000 mg PO QPM Qty: 0 RF: 0 Discontinued divalproex 250 mg tablet extended release 24 hr 250 mg PO QPM RF: 0 Discharge Orders: Discharge Order (Routine); Ordered 11/15/20 Ordered By: Fernandes J. Jinny Admission Data Admit Date/Time: 11/12/20 12:31 Attending Provider: Dom Stearns Admit Provider: Sherif Rosales Primary Care Provider: Grady Fu Other Providers: Sherif Rosales ; Ravi Hutchison ; Сергей Kwan
[2020-11-16] MEDS ORDERED: METOPROLOL SUCC 25MG EXT REL TAB PO SCH (09:00)
== END 2020-11-15 16:30 | disposition home or self-care (01) | DRG 280 ==
LOC: ED 08:36 → 1E 12:31 → SUATTDRO 12:31 → 1E 14:44

== ENCOUNTER 2021-03-11 09:19 | Inpatient (IN) ==
[2021-03-11 09:50] LABS: Basophils # (auto) 0.02 K/uL (0-0.2); Basophils % (auto) 0.4 %; Eosinophils # (auto) 0.08 K/uL (0-0.5); Eosinophils % (auto) 1.5 %; Hematocrit (blood only) 41.4 % (37-47); Hemoglobin 14.1 g/dL (12.0-16.0); Immature Granulocytes # (auto) 0.01 K/uL (0.00-0.02); Immature Granulocytes % (auto) 0.2 %; Lymphocytes # (auto) 0.88 K/uL (1.2-3.4); Lymphocytes % (auto) 16.8 %; Mean Corpuscular Hemoglobin 31.1 pg (25-34); Mean Corpuscular Hgb Conc 34.1 g/dL (32-36); Mean Corpuscular Volume 91.2 fL (80-100); Mean Platelet Volume 9.9 fL (7.4-10.4); Monocytes # (auto) 0.43 K/uL (0.11-0.59); Monocytes % (auto) 8.2 %; Neutrophils # (auto) 3.82 K/uL (1.4-6.5); Neutrophils % (auto) 72.9 %; Platelet Count 299 K/uL (130-400); RDW Coefficient of Variation 14.1 % (11.5-14.5); RDW Standard Deviation 47.1 fL (36.4-46.3); Red Blood Count 4.54 M/uL (4.2-5.4); White Blood Count 5.24 K/uL (4.8-10.8)
[2021-03-11 10:08] LABS: BUN Creatinine Ratio 17.7 (10-20); Blood Urea Nitrogen 9 mg/dl (7-18); Calcium 8.9 mg/dl (8.5-10.1); Carbon Dioxide 26 mmol/L (21-32); Chloride 100 mmol/L (98-107); Creatinine Clr Calc Pharmacy 129.8 ml/min; Est GFR (African American) 114.5 ml/min; Est GFR (Non-African American) 98.8 ml/min; Glucose 106 mg/dl (70-99); Magnesium 1.8 mg/dl (1.8-2.4); Potassium 4.1 mmol/L (3.5-5.1); Sodium 131 mmol/L (136-145)
--- NOTE | 2021-03-11 10:12 | Emergency Department Note ---
History of Present Illness General Chief complaint: Seizure Time Seen by Provider: 03/11/21 09:24 History of Present Illness Provider complaint: Syncope versus seizure Onset (ago): day(s) 1 Maximum Pain Intensity: 0 70-year-old female presents emergency department via EMS. EMS received a call for seizure-like activity. Patient does have a history of seizure and is on Depakote. Patient is also on Coumadin. On arrival the patient reports she did not have a seizure and she states she passed out and woke up on the ground. Patient states she had a similar episode in February. Patient states she does not remember anything that happened, she states she just woke up on the ground. She is currently reporting headache and right shoulder pain. Home Medications Medication Instructions Recorded Confirmed Type levothyroxine 75 mcg capsule 75 mcg PO QAM 05/27/18 03/11/21 History oxcarbazepine 150 mg tablet 300 tab PO BID 05/27/18 03/11/21 History (Trileptal) warfarin 10 mg tablet 10 mg PO TUTH 05/27/18 03/11/21 History warfarin 10 mg tablet 15 mg PO SUMOWEFRSA 11/12/20 03/11/21 History divalproex 500 mg tablet,extended 1,000 mg PO QPM #0 tab 11/15/20 03/11/21 Rx release 24 hr acetaminophen 500 mg tablet 1,000 mg PO Q6H PRN 03/11/21 03/11/21 History (Tylenol Extra Strength) baclofen 10 mg tablet 10 mg PO BID PRN 03/11/21 03/11/21 History cyanocobalamin (vitamin B-12) 1,000 mcg PO DAILY 03/11/21 03/11/21 History 1,000 mcg tablet Allergies Allergy/AdvReac Type Severity Reaction Status Date / Time No Known Allergies Allergy Verified 03/11/21 11:03 Past Med/Surg History Medical History (Updated 03/11/21 @ 14:02 by Mariza Whiting PA-C) Cancer SKIN CANCER Deep vein thrombosis Hallucination Hallucinations (05/29/11) Hearing deficit Hypothyroidism Hypothyroidism On home oxygen therapy [place] OXYGEN AT NIGHT (UNSURE OF LITER) Peripheral neuropathy Psychosis Pulmonary embolism Seizure LAST EPISODE (THIS YEAR/UNSURE OF DATE) ? SEIZURE TYPE>FOLLOWS WITH DR. PHOENIX. 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 Beliefs That Will Affect Care: None Current Living Situation: Spouse Feels Safe at Home: Yes Assistive Devices: Walker Review of Systems A total of 10 systems reviewed and were otherwise negative Physical Exam Vital Signs Vital Signs - 24 hr 03/11/21 09:22 03/11/21 09:34 03/11/21 10:36 Temperature 37.1 C Temperature Source Oral Pulse Rate 80 82 Pulse Rate [Right Finger] 82 Respiratory Rate 24 16 Respiratory Effort / Characteristics Non-Labored Non-Labored Respiratory Depth Normal Normal Blood Pressure 139/73 Blood Pressure [Right Arm] 180/92 H Blood Pressure Mean 95 Blood Pressure Mean [Right Arm] 121 Pulse Oximetry 97 96 98 Oxygen Delivery Method Room Air Room Air Room Air Sepsis Recent Fever Within 48 Hours No Sepsis New/Unexplained Change in Mental Status N/A Sepsis Action Taken by Nursing No Action Required 03/11/21 12:30 Temperature Temperature Source Pulse Rate Pulse Rate [Right Finger] 82 Respiratory Rate 20 Respiratory Effort / Characteristics Non-Labored Respiratory Depth Normal Blood Pressure Blood Pressure [Right Arm] 148/81 H Blood Pressure Mean Blood Pressure Mean [Right Arm] 103 Pulse Oximetry 94 Oxygen Delivery Method Room Air Sepsis Recent Fever Within 48 Hours Sepsis New/Unexplained Change in Mental Status Sepsis Action Taken by Nursing Physical Exam GENERAL: She is oriented to person, place, and time. She appears well-developed and well-nourished. She does not appear distressed. HENT: Exam performed. -Head: Normocephalic and atraumatic. -Right Ear: External ear normal. No mastoid tenderness. -Left Ear: External ear normal. No mastoid tenderness. -Mouth/Throat: The oropharynx is clear and moist. No trismus in the jaw. No dental abscesses or uvula swelling. No oropharyngeal exudate or tonsillar abscesses. EYES: Conjunctivae and EOM are normal. Pupils are equal, round, and reactive to light. Right eye exhibits no discharge. Left eye exhibits no discharge. No scleral icterus. NECK: Normal range of motion. Neck supple. No JVD present. No spinous process tenderness present. No carotid bruit present. No rigidity. No tracheal deviation and normal range of motion present. No Brudzinski's sign and no Kernig's sign noted. CV: Normal rate, regular rhythm, normal heart sounds and intact distal pulses. There is no peripheral edema. Palpable radial pulses bue. PULM/CHEST: Effort normal and breath sounds normal. No respiratory distress. No stridor. She has no wheezes. She has no rales. -Chest Wall: She exhibits no tenderness. ABD: The abdomen is soft. Bowel sounds are normal. She has no distension. No mass is present. There is no tenderness. There is no rebound, no guarding, no Fernandez's sign and no tenderness at McBurney's point. Rovsig negative MUSC/SKEL: Pain on palpation of the right shoulder. LYMPH: No cervical adenopathy. NEURO: She is alert and oriented to person, place, and time. She has normal strength. No cranial nerve deficit or sensory deficit. GCS eye subscore is 4. GCS verbal subscore is 5. GCS motor subscore is 6. Cerebellar tests wnl. SKIN: Skin is warm and dry. She is not diaphoretic. PSYCH: She has a normal mood and affect. Behavior is normal. Judgment and thought content normal. Course Course 923: The patient was evaluated in room A2. A complete history and physical exam was performed Cardiac monitoring: An order was placed for continuous cardiac monitoring. The monitor shows a rate of 80 with sinus rhythm EMR reviewed. Patient was seen in November 2020 and admitted to [facility] for similar episode of syncope versus seizure. Patient was evaluated by cardiology. During that time the patient's troponin was elevated. Cardiology performed a catheterization which showed no significant coronary artery disease. Cardiology believed that the cause of her syncope was more likely due to her neurological episode as opposed to a cardiogenic/arrhythmia event. Neurology evaluated the patient and an EEG was performed which was negative. Neurology consult was done by Dr. Pérez who increase the patient's Depakote from 750 mg daily to 1000 mg daily. MRI of the brain was negative. 1120: Vital signs stable. Labs within normal limits. Lactic acid within normal limits. Valproic acid level is therapeutic. Prolactin level was ordered however it is not able to be run on the weekend at this facility. INR is 5.3. Urinalysis negative for infection. CT head, C-spine, and x-ray shoulders within normal limits. Is unclear if the patient truly had a seizure however this is less likely given the patient has a normal lactic acid, no evidence of tongue bite, no evidence of urinary incontinence. It could be that the patient had a more syncopal episode. [facility] Medical Decision Making Laboratory Data Result diagrams: 03/11/21 09:37 03/11/21 09:37 Lab Results 03/11/21 03/11/21 03/11/21 Range/Units 09:27 09:37 09:37 WBC 5.24 (4.8-10.8) K/uL RBC 4.54 (4.2-5.4) M/uL Hgb 14.1 (12.0-16.0) g/dL Hct 41.4 (37-47) % MCV 91.2 (80-100) fL MCH 31.1 (25-34) pg MCHC 34.1 (32-36) g/dL RDW Std Deviation 47.1 H (36.4-46.3) fL RDW Coeff of Benigno 14.1 (11.5-14.5) % Plt Count 299 (130-400) K/uL MPV 9.9 (7.4-10.4) fL Immature Gran % (Auto) 0.2 % Neut % (Auto) 72.9 % Lymph % (Auto) 16.8 % Baker % (Auto) 8.2 % Eos % (Auto) 1.5 % Baso % (Auto) 0.4 % Neut # (Auto) 3.82 (1.4-6.5) K/uL Lymph # (Auto) 0.88 L (1.2-3.4) K/uL Baker # (Auto) 0.43 (0.11-0.59) K/uL Eos # (Auto) 0.08 (0-0.5) K/uL Baso # (Auto) 0.02 (0-0.2) K/uL Immature Gran # (Auto) 0.01 (0.00-0.02) K/uL PT (9.0-12.0) Seconds INR (0.9-1.1) APTT (21.0-31.0) Seconds PTT Ratio Sodium (136-145) mmol/L Potassium (3.5-5.1) mmol/L Chloride (98-107) mmol/L Carbon Dioxide (21-32) mmol/L Anion Gap (3-11) BUN (7-18) mg/dl Creatinine (0.6-1.2) mg/dl Est Cr Clr Drug Dosing ml/min Est GFR ( Amer) ml/min Est GFR (Non-Af Amer) ml/min BUN/Creatinine Ratio (10-20) Glucose (70-99) mg/dl Lactate (0.4-2.0) mmol/L Calcium (8.5-10.1) mg/dl Magnesium (1.8-2.4) mg/dl Troponin I (0-0.045) ng/ml TSH 2.590 (0.300-4.500) uIu/ml Urine Color Urine Appearance (Clear) Urine pH (4.5-7.5) Ur Specific [place] (1.000-1.030) Urine Protein (Negative) Urine Glucose (UA) (Negative) Urine Ketones (Negative) Urine Blood (Negative) Urine Nitrite (Negative) Urine Bilirubin (Negative) Urine Urobilinogen (Negative) Ur Leukocyte Esterase (Negative) Urine WBC (Auto) (0-5) /hpf Urine RBC (Auto) (0-4) /hpf U Hyaline Cast (Auto) (0-5) /lpf U Epithel Cells (Auto) (0-5) /lpf Urine Bacteria (Auto) (Negative) Valproic Acid 62 (50-100) mcg/ml COVID-19 Eval Order SARS-CoV-2 (PCR) (Negative) 03/11/21 03/11/21 03/11/21 Range/Units 09:37 09:37 09:49 WBC (4.8-10.8) K/uL RBC (4.2-5.4) M/uL Hgb (12.0-16.0) g/dL Hct (37-47) % MCV (80-100) fL MCH (25-34) pg MCHC (32-36) g/dL RDW Std Deviation (36.4-46.3) fL RDW Coeff of Benigno (11.5-14.5) % Plt Count (130-400) K/uL MPV (7.4-10.4) fL Immature Gran % (Auto) % Neut % (Auto) % Lymph % (Auto) % Baker % (Auto) % Eos % (Auto) % Baso % (Auto) % Neut # (Auto) (1.4-6.5) K/uL Lymph # (Auto) (1.2-3.4) K/uL Baker # (Auto) (0.11-0.59) K/uL Eos # (Auto) (0-0.5) K/uL Baso # (Auto) (0-0.2) K/uL Immature Gran # (Auto) (0.00-0.02) K/uL PT 47.3 H (9.0-12.0) Seconds INR 5.3 H (0.9-1.1) APTT 45.7 H* (21.0-31.0) Seconds PTT Ratio 1.7 Sodium 131 L (136-145) mmol/L Potassium 4.1 (3.5-5.1) mmol/L Chloride 100 (98-107) mmol/L Carbon Dioxide 26 (21-32) mmol/L Anion Gap 5.0 (3-11) BUN 9 (7-18) mg/dl Creatinine 0.50 L (0.6-1.2) mg/dl Est Cr Clr Drug Dosing 129.8 ml/min Est GFR ( Amer) 114.5 ml/min Est GFR (Non-Af Amer) 98.8 ml/min BUN/Creatinine Ratio 17.7 (10-20) Glucose 106 H (70-99) mg/dl Lactate 1.8 (0.4-2.0) mmol/L Calcium 8.9 (8.5-10.1) mg/dl Magnesium 1.8 (1.8-2.4) mg/dl Troponin I < 0.015 (0-0.045) ng/ml TSH (0.300-4.500) uIu/ml Urine Color Urine Appearance (Clear) Urine pH (4.5-7.5) Ur Specific [place] (1.000-1.030) Urine Protein (Negative) Urine Glucose (UA) (Negative) Urine Ketones (Negative) Urine Blood (Negative) Urine Nitrite (Negative) Urine Bilirubin (Negative) Urine Urobilinogen (Negative) Ur Leukocyte Esterase (Negative) Urine WBC (Auto) (0-5) /hpf Urine RBC (Auto) (0-4) /hpf U Hyaline Cast (Auto) (0-5) /lpf U Epithel Cells (Auto) (0-5) /lpf Urine Bacteria (Auto) (Negative) Valproic Acid (50-100) mcg/ml COVID-19 Eval Order SARS-CoV-2 (PCR) (Negative) 03/11/21 03/11/21 03/11/21 Range/Units 10:40 11:45 11:45 WBC (4.8-10.8) K/uL RBC (4.2-5.4) M/uL Hgb (12.0-16.0) g/dL Hct (37-47) % MCV (80-100) fL MCH (25-34) pg MCHC (32-36) g/dL RDW Std Deviation (36.4-46.3) fL RDW Coeff of Benigno (11.5-14.5) % Plt Count (130-400) K/uL MPV (7.4-10.4) fL Immature Gran % (Auto) % Neut % (Auto) % Lymph % (Auto) % Baker % (Auto) % Eos % (Auto) % Baso % (Auto) % Neut # (Auto) (1.4-6.5) K/uL Lymph # (Auto) (1.2-3.4) K/uL Baker # (Auto) (0.11-0.59) K/uL Eos # (Auto) (0-0.5) K/uL Baso # (Auto) (0-0.2) K/uL Immature Gran # (Auto) (0.00-0.02) K/uL PT (9.0-12.0) Seconds INR (0.9-1.1) APTT (21.0-31.0) Seconds PTT Ratio Sodium (136-145) mmol/L Potassium (3.5-5.1) mmol/L Chloride (98-107) mmol/L Carbon Dioxide (21-32) mmol/L Anion Gap (3-11) BUN (7-18) mg/dl Creatinine (0.6-1.2) mg/dl Est Cr Clr Drug Dosing ml/min Est GFR ( Amer) ml/min Est GFR (Non-Af Amer) ml/min BUN/Creatinine Ratio (10-20) Glucose (70-99) mg/dl Lactate (0.4-2.0) mmol/L Calcium (8.5-10.1) mg/dl Magnesium (1.8-2.4) mg/dl Troponin I (0-0.045) ng/ml TSH (0.300-4.500) uIu/ml Urine Color Yellow Urine Appearance Clear (Clear) Urine pH 6.5 (4.5-7.5) Ur Specific [place] 1.022 (1.000-1.030) Urine Protein 1+ H (Negative) Urine Glucose (UA) Negative (Negative) Urine Ketones 1+ H (Negative) Urine Blood Negative (Negative) Urine Nitrite Negative (Negative) Urine Bilirubin Negative (Negative) Urine Urobilinogen Negative (Negative) Ur Leukocyte Esterase Negative (Negative) Urine WBC (Auto) 1-5 (0-5) /hpf Urine RBC (Auto) 0-4 (0-4) /hpf U Hyaline Cast (Auto) 1-5 (0-5) /lpf U Epithel Cells (Auto) >30 H (0-5) /lpf Urine Bacteria (Auto) Negative (Negative) Valproic Acid (50-100) mcg/ml COVID-19 Eval Order Covid19 at [facility] SARS-CoV-2 (PCR) NEGATIVE (Negative) Imaging Data Radiologist's Impression: Head CT 03/11/21 09:26 CT head/brain wo con CLINICAL HISTORY: 70 years-old Female with seizure on coumadin. Acute seizure like activity TECHNIQUE: Multiple axial CT images of the head were obtained without contrast. A dose lowering technique was utilized adhering to the principles of ALARA. CT DOSE: 638.56 mGycm COMPARISON: CT cervical spine of same day, head CT 11/12/2020 FINDINGS: No acute intracranial hemorrhage, midline shift, intracranial mass, hydrocephalus, territorial ischemia or abnormal extra-axial collection. Age- related involutional changes. Mild white matter hypodensities suggestive of chronic microvascular ischemic disease. The calvarium is intact. The paranasal sinuses, mastoid air cells, and middle ear cavities are clear. IMPRESSION: No acute intracranial abnormality. ACT 112: Negative or not required by law. The above report was generated using voice recognition software. It may contain grammatical, syntax or spelling errors. Electronically signed by: Dutch Pacheco M.D. 03/11/2021 10:37 AM Shoulder X-Ray 03/11/21 09:42 XR shoulder RT min 2V routine HISTORY: 70 years-old Female fall? seizure? Acute right shoulder pain status post fall COMPARISON: Chest radiograph 11/12/2020 TECHNIQUE: 3 views of the right shoulder FINDINGS: Demineralized appearance of the bones. Moderate AC joint with mild glenohumeral osteoarthritis. No acute fracture, dislocation or opaque foreign body. Unchanged mild interstitial coarsening of the right lung. IMPRESSION: No acute fracture or dislocation. ACT 112: Negative or not required by law. The above report was generated using voice recognition software. It may contain grammatical, syntax or spelling errors. Electronically signed by: Dutch Pacheco M.D. 03/11/2021 10:[address] 03/11/21 10:12 CT cervical spine wo con CT DOSE: 386.72 mGycm CLINICAL HISTORY: 70 years-old Female with seizure vs syncope. Acute fall with seizure like activity COMPARISON: Head CT of same day, CT cervical spine 03/06/2019 TECHNIQUE: Multiple axial CT images of the cervical spine were obtained without contrast. A dose lowering technique was utilized adhering to the principles of ALARA. FINDINGS: Moderate to severe degeneration at C1-C2. Mild to moderate intervertebral disc space narrowing at C4-C5 through C6-C7 with associated spondylitic spurring and small posterior disc osteophyte complex formations. Moderate multilevel facet arthrosis. Degenerative related bony fusion of the left C2-C3 facets. No acute fracture or subluxation. Multilevel neural foraminal narrowing. No pneumothorax. Multinodular thyroid. No prevertebral edema. Calcified plaque of the carotid bulbs. IMPRESSION: No acute cervical spine fracture. ACT 112: Negative or not required by law. The above report was generated using voice recognition software. It may contain grammatical, syntax or spelling errors. Electronically signed by: Dutch Pacheco M.D. 03/11/2021 10:40 AM ECG Data Indication: + syncope Rate (beats per minute): 80 Rhythm: + normal sinus ECG Intervals/blocks: + Normal QRS, + Normal NV and + Normal QT-c ECG ST segments: + Normal ST segments [facility] Narrative 0924: The patient was evaluated in room A2. A complete history and physical exam was performed Cardiac monitoring: An order was placed for continuous cardiac monitoring. The monitor shows a rate of 80 with sinus rhythm EMR reviewed. Patient was seen in November 2020 and admitted to [facility] for similar episode of syncope versus seizure. Patient was evaluated by cardiology. During that time the patient's troponin was elevated. Cardiology performed a catheterization which showed no significant coronary artery disease. Cardiology believed that the cause of her syncope was more likely due to her neurological episode as opposed to a cardiogenic/arrhythmia event. Neurology evaluated the patient and an EEG was performed which was negative. Neurology consult was done by Dr. Pérez who increase the patient's Depakote from 750 mg daily to 1000 mg daily. MRI of the brain was negative. 1120: Vital signs stable. Labs within normal limits. Lactic acid within normal limits. Valproic acid level is therapeutic. Prolactin level was ordered however it is not able to be run on the weekend at this facility. INR is 5.3. Urinalysis negative for infection. CT head, C-spine, and x-ray shoulders within normal limits. Is unclear if the patient truly had a seizure however this is less likely given the patient has a normal lactic acid, no evidence of tongue bite, no evidence of urinary incontinence. It could be that the patient had a more syncopal episode. [facility] Impression & Plan Syncope Discharge Plan Visit Data Chief Complaint: Seizure ED Provider: Ramakrishna Fischer Discharge Problem: Syncope Forms Stand Alone Forms: [facility] Prescriptions Prescriptions: No Action oxcarbazepine [Trileptal] 150 mg Tablet 300 tab PO BID RF: 0 warfarin 10 mg Tablet 10 mg PO TUTH RF: 0 levothyroxine 75 mcg Capsule 75 mcg PO QAM RF: 0 acetaminophen [Tylenol Extra Strength] 500 mg Tablet 1,000 mg PO Q6H PRN (Reason: Pain) RF: 0 cyanocobalamin (vitamin B-12) 1,000 mcg Tablet 1,000 mcg PO DAILY RF: 0 baclofen 10 mg tablet 10 mg PO BID PRN (Reason: Pain) RF: 0 warfarin 10 mg tablet 15 mg PO SUMOWEFR RF: 0 divalproex 500 mg tablet extended release 24 hr 1,000 mg PO QPM Qty: 0 RF: 0 Referrals Referrals: Kiki Hay MD [Primary Care Provider] -
[2021-03-11 10:13] LABS: INR 5.3 (0.9-1.1); Partial Thromboplastin Ratio 1.7; Prothrombin Time 47.3 Seconds (9.0-12.0); Troponin I < 0.015 ng/ml (0-0.045)
--- NOTE | 2021-03-11 10:22 | XRay Report ---
XR shoulder RT min 2V routine HISTORY: 70 years-old Female fall? seizure? Acute right shoulder pain status post fall COMPARISON: Chest radiograph 11/12/2020 TECHNIQUE: 3 views of the right shoulder FINDINGS: Demineralized appearance of the bones. Moderate AC joint with mild glenohumeral osteoarthritis. No ac creek fracture, dislocation or opaque foreign body. Unchanged mild interstitial coarsening of the right lung. IMPRESSION: No acute fracture or dislocation. ACT 112: Negative or not required by law. The above report was generated using voice recognition software. It may contain grammatical, syntax o r spelling errors. Electronically signed by: Dutch Pacheco M.D. 03/11/2021 10:21 AM
--- NOTE | 2021-03-11 10:38 | CT Scan Report ---
CT head/brain wo con CLINICAL HISTORY: 70 years-old Female with seizure on coumadin. Acute seizure like activity TECHNIQUE: Multiple axial CT images of the head were obtained without contrast. A dose lowering tech nique was utilized adhering to the principles of ALARA. CT DOSE: 638.56 mGycm COMPARISON: CT cervical spine of same day, head CT 11/12/2020 FINDINGS: No acute intracranial hemorrhage, midline shift, intracranial mass, hydrocephalus, territorial ischem ia or abnormal extra-axial collection. Age-related involutional changes. Mild white matter hypodensit ies suggestive of chronic microvascular ischemic disease. The calvarium is intact. The paranasal sinuses, mastoid air cells, and middle ear cavities are clear . IMPRESSION: No acute intracranial abnormality. ACT 112: Negative or not required by law. The above report was generated using voice recognition software. It may contain grammatical, syntax o r spelling errors. Electronically signed by: Dutch Pacheco M.D. 03/11/2021 10:37 AM
--- NOTE | 2021-03-11 10:42 | CT Scan Report ---
CT cervical spine wo con CT DOSE: 386.72 mGycm CLINICAL HISTORY: 70 years-old Female with seizure vs syncope. Acute fall with seizure like activity COMPARISON: Head CT of same day, CT cervical spine 03/06/2019 TECHNIQUE: Multiple axial CT images of the cervical spine were obtained without contrast. A dose low ering technique was utilized adhering to the principles of ALARA. FINDINGS: Moderate to severe degeneration at C1-C2. Mild to moderate intervertebral disc space narrowing at C4- C5 through C6-C7 with associated spondylitic spurring and small posterior disc osteophyte complex for mations. Moderate multilevel facet arthrosis. Degenerative related bony fusion of the left C2-C3 face ts. No acute fracture or subluxation. Multilevel neural foraminal narrowing. No pneumothorax. Multinodular thyroid. No prevertebral edema. Calcified plaque of the carotid bulbs. IMPRESSION: No acute cervical spine fracture. ACT 112: Negative or not required by law. The above report was generated using voice recognition software. It may contain grammatical, syntax o r spelling errors. Electronically signed by: Dutch Pacheco M.D. 03/11/2021 10:40 AM
[2021-03-11 10:51] LABS: Appearance Urine Clear (Clear); Bacteria Urine Automated Negative (Negative); Bilirubin Urine Negative (Negative); Blood Urine Negative (Negative); Color Urine Yellow; Epithelial Cell Urine Auto >30 /lpf (0-5); Glucose Urine UA Negative (Negative); Ketones Urine 1+ (Negative); Leukocyte Esterase Urine Negative (Negative); Nitrite Urine Negative (Negative); Protein Urine 1+ (Negative); RBC Urine Automated 0-4 /hpf (0-4); Specific Gravity Urine 1.022 (1.000-1.030); Urobilinogen Urine Negative (Negative); pH Urine 6.5 (4.5-7.5)
[2021-03-11 10:53] LABS: Partial Thromboplastin Time 45.7 Seconds (21.0-31.0)
--- NOTE | 2021-03-11 11:50 | History & Physical Report ---
Date of Service March 11, 2021 Assessment & Plan (1) Witnessed seizure-like activity: (2) Seizure disorder: Plan: This is a 70-year-old female with PMH of seizure disorder, history of syncopal episodes, hypothyroidism, history of PE on Coumadin, FORREST on CPAP and other medical problems listed below who presents after syncopal episode versus seizure at home this morning. Seizure vs syncopal episode witnessed by this morning, sent in by EMS Witnessed 30-40 second episode of staring and unresponsiveness by ER nurse and myself concerning for partial seizure Follows with Dr. 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 Lab work with mild hyponatremia at 131. Troponin and lactate wnl Discussed with Dr. Pham, who recommended loading with 500mg Keppra IV and starting 250mg PO Keppra BID Seizure precautions, fall precautions Monitor on telemetry PRN Ativan for seizure activity Appreciate neuro input (3) Peripheral neuropathy: Plan: Continue B12 supplementation Fall precautions PT/OT evaluation (4) Elevated INR: Plan: INR 5.2 No acute bleeding Hold coumadin for now Repeat INR in AM (5) History of pulmonary embolism: Plan: Holding Coumadin while INR supratherapeutic (6) Hypothyroidism: Plan: Continue levothyroxine (7) FORREST (obstructive sleep apnea): Plan: CPAP HS DVT Ppx: Holding coumadin while INR supratherapeutic Code status: FULL PCP: Tank Dispo: Admitted to PCU. Discharge planning ordered Patient seen in collaboration with Dr. Youngblood. Please see addendum. History of Present Illness Chief Complaint: Syncopal episode Primary Care Provider: Kiki Hay MD This is a 70-year-old female with PMH of seizure disorder, history of syncopal episodes, hypothyroidism, history of PE on Coumadin, FORREST on CPAP and other medical problems listed below who presents after syncopal episode versus seizure at home this morning. witnessed episode and called EMS but not accompany patient to the ER. Patient remembers getting out of bed and ambulating to bathroom before blacking out and coming to on the floor. During interview with patient in the emergency room, patient had 30 to 40 seconds period of unresponsiveness when she was staring forward. Monitor revealed sinus tachycardia at 128 bpm and hypoxia 89% on room air at this time. Patient did not respond to verbal stimuli or sternal rub for 30 seconds but then came to and resumed answering question I had post prior to episode. States that she felt cold following episode but denies any confusion or lethargy. No tongue biting or bowel or bladder incontinence. States that that is a typical seizure episode for her with only prodrome being a pounding heartbeat that is fast. Denies any fever, chills, lightheadedness, chest pain, shortness of breath, nausea, vomiting, abdominal pain, dysuria, diarrhea constipation. Patient with longstanding history of syncopal episodes requiring admission most recently last November. Notes dating back to 2014 by cardiology stated syncope not characteristic of cardiac and likely more fit picture of recurrent seizure. During admission in November 2020, patient had echo with EF of 40%, mild global hypokinesis of left ventricle and grade 1 diastolic dysfunction. Also underwent cardiac catheterization at that time with resulting nonobstructive CAD. Follows with Dr. Hutchison of [facility] neurology most recently seen in clinic March 01 of this past month. Had had another syncopal event 2 weeks earlier that again was described as unusual by neurology and may or may not have underlying seizures. Had a negative 72 hour EEG for any recorded events. No medication changes made to regimen of Depakote and Trileptal at that time. Allergies Allergy/AdvReac Type Severity Reaction Status Date / Time No Known Allergies Allergy Verified 03/11/21 11:03 Home Medications Medication Instructions Recorded Confirmed Type levothyroxine 75 mcg capsule 75 mcg PO QAM 05/27/18 03/11/21 History oxcarbazepine 150 mg tablet 300 tab PO BID 05/27/18 03/11/21 History (Trileptal) warfarin 10 mg tablet 10 mg PO TUTH 05/27/18 03/11/21 History warfarin 10 mg tablet 15 mg PO SUMOWEFRSA 11/12/20 03/11/21 History divalproex 500 mg tablet,extended 1,000 mg PO QPM #0 tab 11/15/20 03/11/21 Rx release 24 hr acetaminophen 500 mg tablet 1,000 mg PO Q6H PRN 03/11/21 03/11/21 History (Tylenol Extra Strength) baclofen 10 mg tablet 10 mg PO BID PRN 03/11/21 03/11/21 History cyanocobalamin (vitamin B-12) 1,000 mcg PO DAILY 03/11/21 03/11/21 History 1,000 mcg tablet Past Med/Surg History Medical History (Updated 03/11/21 @ 14:02 by Mariza Whiting PA-C) Cancer SKIN CANCER Deep vein thrombosis Hallucination Hallucinations (05/29/11) Hearing deficit Hypothyroidism Hypothyroidism On home oxygen therapy [place] OXYGEN AT NIGHT (UNSURE OF LITER) Peripheral neuropathy Psychosis Pulmonary embolism Seizure LAST EPISODE (THIS YEAR/UNSURE OF DATE) ? SEIZURE TYPE>FOLLOWS WITH DR. PHOENIX. OLD RECORDS NOTE EPILEPSY Seizure disorder Sleep apnea NO DEVICE USED NOW (CPAP USED IN PAST) Witnessed seizure-like activity Surgical History History of adenoidectomy History of bilateral tubal ligation History of colonoscopy History of tonsillectomy History of tooth extraction Family History Mother Family hx of colon cancer Social History Smoking Status: Never smoker Second Hand Exposure: Yes; Hx Alcohol Use: No Hx Substance Use: No Preferred Language: [place] Islander Communication Ability: Effective Inspector Boiler Required: No Beliefs That Will Affect Care: None Current Living Situation: Spouse Feels Safe at Home: Yes Assistive Devices: Walker Review of Systems Review of Systems: At least ten systems reviewed and negative except as noted in the HPI. Physical Exam Physical Exam: General Appearance: WD/WN, vitals as above, NAD, sitting up in bed, pleasant, conversing easily Head: normocephalic, atraumatic Eyes: normal inspection, PERRL, conjunctivae normal, anicteric sclerae ENT: hard of hearing, external ear and nose normal, oropharynx normal Neck: normal visual inspection, trachea midline, no thyromegaly Respiratory: normal respiratory effort, lungs clear to auscultation, no wheeze, rales, rhonchi. No accessory muscle use Cardiovascular: regular rate, rhythm, no murmur, normal peripheral pulses, no BLE edema. Vessels: no JVD Chest: normal inspection of chest Abdomen/GI: normal bowel sounds, soft, nontender, no hepatosplenomegaly Extremities/Musculoskeletal: no cyanosis or clubbing, extremities motor strength 5/5 Neurologic: PERRL, EOMI, accommodation nl, no face palsy, no dysarthria, CN's I I-XI intact bilaterally and moves all extremities Psychiatric: A+Ox3, euthymic affect Skin: no rashes, normal color, warm/dry Results & Data Results & Data ([facility]) Vital Signs (Past 12 Hours) Vital Signs Temp Pulse Pulse Resp BP BP Pulse Ox 03/11/21 10:36 82 16 180/92 H 98 03/11/21 09:34 82 96 03/11/21 09:22 37.1 C 80 24 139/73 97 Laboratory Results Short CBC 03/11/21 Range/Units 09:37 WBC 5.24 (4.8-10.8) K/uL Hgb 14.1 (12.0-16.0) g/dL Hct 41.4 (37-47) % Plt Count 299 (130-400) K/uL BMP 03/11/21 09:37 Sodium 131 L Potassium 4.1 Chloride 100 Carbon Dioxide 26 BUN 9 Creatinine 0.50 L Glucose 106 H Calcium 8.9 Cardiac Enzymes 03/11/21 Range/Units 09:37 Troponin I < 0.015 (0-0.045) ng/ml Urine 03/11/21 Range/Units 10:40 Urine Color Yellow Urine Appearance Clear (Clear) Urine pH 6.5 (4.5-7.5) Ur Specific [place] 1.022 (1.000-1.030) Urine Protein 1+ H (Negative) Urine Glucose (UA) Negative (Negative) Diagnostic Findings Head CT 03/11/21 09:26 CT head/brain wo con CLINICAL HISTORY: 70 years-old Female with seizure on coumadin. Acute seizure like activity TECHNIQUE: Multiple axial CT images of the head were obtained without contrast. A dose lowering technique was utilized adhering to the principles of ALARA. CT DOSE: 638.56 mGycm COMPARISON: CT cervical spine of same day, head CT 11/12/2020 FINDINGS: No acute intracranial hemorrhage, midline shift, intracranial mass, hydrocephalus, territorial ischemia or abnormal extra-axial collection. Age- related involutional changes. Mild white matter hypodensities suggestive of chronic microvascular ischemic disease. The calvarium is intact. The paranasal sinuses, mastoid air cells, and middle ear cavities are clear. IMPRESSION: No acute intracranial abnormality. ACT 112: Negative or not required by law. The above report was generated using voice recognition software. It may contain grammatical, syntax or spelling errors. Electronically signed by: Dutch Pacheco M.D. 03/11/2021 10:37 AM Shoulder X-Ray 03/11/21 09:42 XR shoulder RT min 2V routine HISTORY: 70 years-old Female fall? seizure? Acute right shoulder pain status post fall COMPARISON: Chest radiograph 11/12/2020 TECHNIQUE: 3 views of the right shoulder FINDINGS: Demineralized appearance of the bones. Moderate AC joint with mild glenohumeral osteoarthritis. No acute fracture, dislocation or opaque foreign body. Unchanged mild interstitial coarsening of the right lung. IMPRESSION: No acute fracture or dislocation. ACT 112: Negative or not required by law. The above report was generated using voice recognition software. It may contain grammatical, syntax or spelling errors. Electronically signed by: Dutch Pacheco M.D. 03/11/2021 10:[address] 03/11/21 10:12 CT cervical spine wo con CT DOSE: 386.72 mGycm CLINICAL HISTORY: 70 years-old Female with seizure vs syncope. Acute fall with seizure like activity COMPARISON: Head CT of same day, CT cervical spine 03/06/2019 TECHNIQUE: Multiple axial CT images of the cervical spine were obtained without contrast. A dose lowering technique was utilized adhering to the principles of ALARA. FINDINGS: Moderate to severe degeneration at C1-C2. Mild to moderate intervertebral disc space narrowing at C4-C5 through C6-C7 with associated spondylitic spurring and small posterior disc osteophyte complex formations. Moderate multilevel facet arthrosis. Degenerative related bony fusion of the left C2-C3 facets. No acute fracture or subluxation. Multilevel neural foraminal narrowing. No pneumothorax. Multinodular thyroid. No prevertebral edema. Calcified plaque of the carotid bulbs. IMPRESSION: No acute cervical spine fracture. ACT 112: Negative or not required by law. The above report was generated using voice recognition software. It may contain grammatical, syntax or spelling errors. Electronically signed by: Dutch Pacheco M.D. 03/11/2021 10:40 AM Code Status & VTE Plan VTE Prophylaxis Plan VTE Prophylaxis will be ordered: Yes
[2021-03-11] MEDS ORDERED: LORazepam 1 MG/2 ML VIAL IV PRN (13:45)
[2021-03-11] MEDS ORDERED: levETIRAcetam 500 MG in 0.9 % SODIUM CHLORIDE 100 ML IV STA (13:49)
[2021-03-11] MEDS ORDERED: POLYETHYLENE (MIRALAX) 17 GM PACK PO PRN (15:24)
[2021-03-11] MEDS ORDERED: BACLOFEN 10 MG TAB PO PRN (15:24)
[2021-03-11] MEDS ORDERED: ACETAMINOPHEN 325 MG TAB PO PRN (15:24)
[2021-03-11] MEDS ORDERED: ONDANSETRON INJ 2 MG/ML 2 ML VIAL IV PRN (15:24)
[2021-03-11 15:35] LABS: Basophils # (auto) 0.03 K/uL (0-0.2); Basophils % (auto) 0.3 %; Eosinophils # (auto) 0.03 K/uL (0-0.5); Eosinophils % (auto) 0.3 %; Hematocrit (blood only) 39.2 % (37-47); Hemoglobin 13.4 g/dL (12.0-16.0); Immature Granulocytes # (auto) 0.01 K/uL (0.00-0.02); Immature Granulocytes % (auto) 0.1 %; Lymphocytes # (auto) 0.99 K/uL (1.2-3.4); Lymphocytes % (auto) 10.9 %; Mean Corpuscular Hemoglobin 31.1 pg (25-34); Mean Corpuscular Hgb Conc 34.2 g/dL (32-36); Mean Platelet Volume 9.7 fL (7.4-10.4); Monocytes % (auto) 6.6 %; Neutrophils # (auto) 7.39 K/uL (1.4-6.5); Neutrophils % (auto) 81.8 %; Platelet Count 272 K/uL (130-400); RDW Coefficient of Variation 13.9 % (11.5-14.5); RDW Standard Deviation 46.6 fL (36.4-46.3); Red Blood Count 4.31 M/uL (4.2-5.4); White Blood Count 9.05 K/uL (4.8-10.8)
--- NOTE | 2021-03-11 15:37 | Electrocardiogram Report ---
Test Reason : Blood Pressure : / mmHG Vent. Rate : 080 BPM Atrial Rate : 080 BPM P-R Int : 186 ms QRS Dur : 084 ms QT Int : 378 ms P-R-T Axes : 054 020 032 degrees QTc Int : 435 ms Normal sinus rhythm Normal ECG When compared with ECG of 13-NOV-2020 07:51, NE interval has decreased Nonspecific ST abnormality Anterior leads no longer present QT has shortened Confirmed by Ruben Jaramillo ([id number]) on 03/11/2021 3:37:15 PM Referred By: REFERRED SELF Confirmed By:Ruben Jaramillo
[2021-03-11] MEDS: ACETAMINOPHEN 500 MG TAB PO PRN ×2 (16:02→23:25)
--- NOTE | 2021-03-11 18:24 | XRay Report ---
XR ribs BI min 4V w CXR1V HISTORY: 70 years-old Female Fall R/O Rib fracture acute chest trauma status post fall with bilatera l rib pain COMPARISON: Chest radiograph 11/12/2020 TECHNIQUE: AP view the chest with 4 views of the bilateral ribs FINDINGS: Cardiac mediastinal and hilar silhouettes are within normal limits. No pneumothorax, pleural effusion , airspace consolidation or overt pulmonary edema. Degenerative changes of the shoulders and spine. N o acute displaced rib fracture identified. IMPRESSION: 1. No acute process of the chest. 2. No acute rib fracture or pneumothorax identified. ACT 112: Negative or not required by law. The above report was generated using voice recognition software. It may contain grammatical, syntax o r spelling errors. Electronically signed by: Dutch Pacheco M.D. 03/11/2021 6:22 PM
[2021-03-11] MEDS ORDERED: SODIUM CHLORIDE 0.9% 500 ML IV SCH (18:45)
[2021-03-11] MEDS: OXcarbazepine 150 MG TABLET PO SCH (20:14)
[2021-03-11] MEDS: DIVALPROEX EXTENDED RELEASE 500 MG TAB PO SCH (20:14)
[2021-03-11] MEDS: levETIRAcetam 250 MG TAB PO SCH (20:30)
[2021-03-12] MEDS: LEVOTHYROXINE SODIUM 75 MCG TABLET PO SCH (05:03)
[2021-03-12 07:29] LABS: Hematocrit (blood only) 38.6 % (37-47); Mean Corpuscular Hemoglobin 30.2 pg (25-34); Mean Corpuscular Hgb Conc 33.7 g/dL (32-36); Mean Corpuscular Volume 89.8 fL (80-100); Mean Platelet Volume 9.8 fL (7.4-10.4); Platelet Count 239 K/uL (130-400); RDW Coefficient of Variation 14.3 % (11.5-14.5); RDW Standard Deviation 46.7 fL (36.4-46.3); White Blood Count 5.11 K/uL (4.8-10.8)
[2021-03-12 07:53] LABS: BUN Creatinine Ratio 14.8 (10-20); Calcium 8.6 mg/dl (8.5-10.1); Creatinine Clr Calc Pharmacy 154.2 ml/min; Est GFR (African American) 121.2 ml/min; Est GFR (Non-African American) 104.6 ml/min; Potassium 3.8 mmol/L (3.5-5.1)
[2021-03-12 07:54] LABS: Prothrombin Time 44.8 Seconds (9.0-12.0)
[2021-03-12] MEDS: CYANOCOBALAMIN 500 MCG TABLET (VITAMIN B-12) PO SCH (08:22)
[2021-03-12] MEDS: OXcarbazepine 150 MG TABLET PO SCH ×2 (08:22→20:16)
[2021-03-12] MEDS: levETIRAcetam 250 MG TAB PO SCH ×2 (08:23→20:17)
[2021-03-12] MEDS: LIDOCAINE 5% 1 PATCH TD SCH (12:18)
--- NOTE | 2021-03-12 15:16 | Hospitalist Progress Note ---
Date of Service March 12, 2021 Assessment & Plan (1) Witnessed seizure-like activity: (2) Seizure disorder: Plan: Patient is a 70 yr female with PMH of seizure disorder, history of syncopal episodes, hypothyroidism, history of PE on Coumadin, FORREST on CPAP and other medical problems listed below who presents after syncopal episode versus seizure at home. Unconsciousness Episode DD: Seizure vs syncopal episode -CT head:No acute intracranial abnormality. -CT neck: No acute cervical spine fracture. Recent outpatient 72h EEG negative for any recorded events EEG pending Negative Orthostatics Follows with Dr. Hutchison as outpatient Continue Depakote 1,000mg HS, Trileptal 300mg BID Added [place] Appreciate Neurology Input Seizure, fall precautions (3) Peripheral neuropathy: Plan: Continue B12 supplementation Fall precautions PT/OT evaluation (4) Elevated INR: Plan: INR 5.2>5.0 No acute bleeding Hold Coumadin for now Monitor INR (5) History of pulmonary embolism: Plan: INR supratherapeutic (6) Hypothyroidism: Plan: Continue levothyroxine (7) FORREST (obstructive sleep apnea): Plan: CPAP HS DVT Px: Resume Coumadin as able Code status: FULL CODE Admission and Anticipated Discharge Date Admission Date: March 11, 2021 Subjective Patient is seen and examined at bedside States having rib pain No seizure activity since hospitalization Denies shortness of breath, dizziness, nausea, abdominal pain Offers no other complaints Review of Systems Review of Systems: All systems reviewed & are unremarkable except as noted in Subjective Physical Exam Physical Exam: Physical Exam: Vitals signs as noted above General Appearance:Obese, no apparent distress Head: normocephalic, Right Periorbital bruising Eyes: normal inspection, EOMI Neck: supple, Trachea midline Respiratory/Chest: Normal breath sounds, CTA, +rib tenderness Cardiovascular: S1, S2, No murmur Abdomen/GI:Soft, Non tender, Bowel sounds present Extremities/Musculoskeletal:normal inspection, 1+ B/L LE edema Neurologic/Psych:AAOX3, grossly no focal neurological deficits, + hearing impairment Skin: normal color, warm Results & Data Results & Data ([facility]) Vital Signs (Past 12 Hours) Vital Signs Temp Pulse Pulse Resp BP BP Pulse Ox 03/12/21 11:35 36.7 C 71 19 136/73 95 03/12/21 09:51 70 03/12/21 07:52 36.5 C 77 19 150/82 H 96 03/12/21 05:01 36.7 C 76 20 130/76 95 Laboratory Results Short CBC 03/11/21 03/12/21 Range/Units 14:55 06:07 WBC 9.05 5.11 (4.8-10.8) K/uL Hgb 13.4 13.0 (12.0-16.0) g/dL Hct 39.2 38.6 (37-47) % Plt Count 272 239 (130-400) K/uL BMP 03/12/21 06:07 Sodium 135 L Potassium 3.8 Chloride 104 Carbon Dioxide 26 BUN 6 L Creatinine 0.42 L Glucose 92 Calcium 8.6
--- NOTE | 2021-03-12 15:18 | Neurology Consultation ---
Date of Consultation March 12, 2021 Assessment & Plan (1) Witnessed seizure-like activity: 1. increase trileptal 300 mg BID to 450 mg BID 2. continue valproic acid 1000 mg BID 3. added Keppra 250 mg q 12 hours- 2 doses received- will d/c prior to discharge 4. EEG pending read 5. previous cardiac work up was negative 6. out patient EEG was previously ordered but not done- [facility] [place] may be next step to evaluate episodes. 7. fall and seizure precautions will follow up with neurology in 4-6 weeks and EEG 72 hour prior (2) Elevated INR: 1. currently holding coumadin 2. defer to primary team for further management Supervising Physician Co-Signing Physician Notes I have seen and discussed above patient with Dr Loren Rudolph, neurology History of Present Illness Reason for Consultation: possible recurrent seizure episode Requesting Physician: John Youngblood MD Attending Physician: John Youngblood MD History of Present Illness Sintia is a 70 year old female with PMH- seizure disorder, multiple syncopal episodes, hypothyroidism, history of pulmonary embolism on Coumadin who presented to [facility] 03/12/2021 syncopal episode. She is unaware of the events and unable to provide any history regarding the episode. She has generalized body aches predominantly back, right shoulder, bilateral rib pain from the fall. She did not loose her bowel or bladder or bite her tongue but did hit her self on something in the bathroom her R. eye is ecchymosis. According to her he was in bed and heard a thump in the bathroom and found her unresponsiveness lasting for about 40 seconds. She was confused and the first thing she remembers is the ambulance coming. She had 2 witnessed staring spells in the ED. She was transiently hypoxic, tachycardic which were resolved. She is admitted for management of syncopal versus seizure breakthrough. Hold Coumadin for supratherapeutic INR. She thinks these are her typical seizure events which she has had for many years. She is complaining of right rib, shoulder back pain since the fall. denies CP, SOB, one side weakness, N, V, loss of bowel or bladder, biting of tongue. Allergies Allergy/AdvReac Type Severity Reaction Status Date / Time No Known Allergies Allergy Verified 03/11/21 11:03 Home Medications Medication Instructions Recorded Confirmed Type levothyroxine 75 mcg capsule 75 mcg PO QAM 05/27/18 03/11/21 History oxcarbazepine 150 mg tablet 300 mg PO BID 05/27/18 03/11/21 History (Trileptal) warfarin 10 mg tablet 10 mg PO TUTH 05/27/18 03/11/21 History warfarin 10 mg tablet 15 mg PO SUMOWEFRSA 11/12/20 03/11/21 History divalproex 500 mg tablet,extended 1,000 mg PO QPM #0 tab 11/15/20 03/11/21 Rx release 24 hr acetaminophen 500 mg tablet 1,000 mg PO Q6H PRN 03/11/21 03/11/21 History (Tylenol Extra Strength) baclofen 10 mg tablet 10 mg PO BID PRN 03/11/21 03/11/21 History cyanocobalamin (vitamin B-12) 1,000 mcg PO DAILY 03/11/21 03/11/21 History 1,000 mcg tablet Patient History Medical History (Updated 03/11/21 @ 14:02 by Mariza Whiting PA-C) Cancer SKIN CANCER Deep vein thrombosis Hallucination Hallucinations (05/29/11) Hearing deficit Hypothyroidism Hypothyroidism On home oxygen therapy [place] OXYGEN AT NIGHT (UNSURE OF LITER) Peripheral neuropathy Psychosis Pulmonary embolism Seizure LAST EPISODE (THIS YEAR/UNSURE OF DATE) ? SEIZURE TYPE>FOLLOWS WITH DR. PHOENIX. OLD RECORDS NOTE EPILEPSY Seizure disorder Sleep apnea NO DEVICE USED NOW (CPAP USED IN PAST) Witnessed seizure-like activity Surgical History History of adenoidectomy History of bilateral tubal ligation History of colonoscopy History of tonsillectomy History of tooth extraction Family History Mother Family hx of colon cancer Social History Smoking Status: Never smoker Second Hand Exposure: Yes; Hx Alcohol Use: No Hx Substance Use: No Preferred Language: Spanish Communication Ability: Effective Manager Gas Required: No Beliefs That Will Affect Care: None Current Living Situation: Spouse Feels Safe at Home: Yes Safety Concerns: Feels Safe At This Time Assistive Devices: Denture - Upper and Denture - Lower Review of Systems Review of Systems: All systems reviewed & are unremarkable except as noted in HPI & below Physical Exam Physical Exam: Physical Exam: Constitutional: appearance over nourished, healthy and normal Ears, Nose, Mouth and Throat: mucous membranes moist, no injection and skin normal, eyes normal Cardiovascular: normal S-1 and S-2 and regular rate and rhythm Respiratory: course breath sounds Musculoskeletal: no peripheral edema and good distal pulses Skin: no stigmata of neurocutaneous disease noted and normal and intact Eyes: extraocular muscles intact (EOMI) and pupils equal, round and reactive to light (PERRL), ecchymosis right eye NEUROLOGIC EXAMINATION: Mental status: Alert and interactive Oriented to full date and location Oriented to person Speech fluent with no evidence of aphasia Cranial Nerves smile eye brow raise symmetric Reflexes: Deep tendon reflexes were symmetrical and graded 2/5. Sensory: intact to light and cool touch Coordination: finger to nose no bipass Gait/Stance: Posture normal. Gait normal: not assessed Motor: Negative for pronator drift of out stretched arms with eyes closed. Strength: hand geological drafter biceps triceps 5/5 bilaterally, hip flex plantar flex ext 5/5 Results & Data ([facility]) Vital Signs (Past 12 Hours) Vital Signs Temp Pulse Pulse Resp BP BP Pulse Ox 03/12/21 11:35 36.7 C 71 19 136/73 95 03/12/21 09:51 70 03/12/21 07:52 36.5 C 77 19 150/82 H 96 03/12/21 05:01 36.7 C 76 20 130/76 95 Laboratory Results Abnormal lab results 03/11/21 03/12/21 03/12/21 Range/Units 14:55 06:07 06:07 RDW Std Deviation 46.6 H 46.7 H (36.4-46.3) fL Neut # (Auto) 7.39 H (1.4-6.5) K/uL Lymph # (Auto) 0.99 L (1.2-3.4) K/uL [place] # (Auto) 0.60 H (0.11-0.59) K/uL PT 44.8 H (9.0-12.0) Seconds INR 5.0 H (0.9-1.1) Sodium (136-145) mmol/L BUN (7-18) mg/dl Creatinine (0.6-1.2) mg/dl 03/12/21 Range/Units 06:07 RDW Std Deviation (36.4-46.3) fL Neut # (Auto) (1.4-6.5) K/uL Lymph # (Auto) (1.2-3.4) K/uL [place] # (Auto) (0.11-0.59) K/uL PT (9.0-12.0) Seconds INR (0.9-1.1) Sodium 135 L (136-145) mmol/L BUN 6 L (7-18) mg/dl Creatinine 0.42 L (0.6-1.2) mg/dl valproic acid -62 Trileptal pending results Diagnostic Findings CT head-No acute intracranial hemorrhage, midline shift, intracranial mass, hydrocephalus, territorial ischemia or abnormal extra-axial collection. Age- related involutional changes. Mild white matter hypodensities suggestive of chronic microvascular ischemic disease. The calvarium is intact. The paranasal sinuses, mastoid air cells, and middle ear cavities are clear. xray shoulder-Demineralized appearance of the bones. Moderate AC joint with mild glenohumeral osteoarthritis. No acute fracture, dislocation or opaque foreign body. Unchanged mild interstitial coarsening of the right lung. CT c spine-Moderate to severe degeneration at C1-C2. Mild to moderate intervertebral disc space narrowing at C4-C5 through C6-C7 with associated spondylitic spurring and small posterior disc osteophyte complex formations. Moderate multilevel facet arthrosis. Degenerative related bony fusion of the left C2-C3 facets. No acute fracture or subluxation. Multilevel neural foraminal narrowing No pneumothorax. Multinodular thyroid. No prevertebral edema. Calcified plaque of the carotid bulbs. xray ribs-Cardiac mediastinal and hilar silhouettes are within normal limits. No pneumothorax, pleural effusion, airspace consolidation or overt pulmonary edema. Degenerative changes of the shoulders and spine. No acute displaced rib fracture identified.
[2021-03-12] MEDS: ACETAMINOPHEN 500 MG TAB PO PRN ×2 (15:24→23:02)
--- NOTE | 2021-03-12 15:55 | Electroencephalogram ---
EEG Procedure Note Date of Service March 12, 2021 Start / End Times Start Time: 10:52 End Time: 11:12 Referring Physician Mariza Whiting PA-C History A 70-year-old woman with a history of epilepsy. Patient mated from the emergency department yesterday with for possible seizure. EEG performed for ration of epileptiform activity. Home Medication List Medication Instructions Recorded Confirmed Type levothyroxine 75 mcg capsule 75 mcg PO QAM 05/27/18 03/11/21 History oxcarbazepine 150 mg tablet 300 mg PO BID 05/27/18 03/11/21 History (Trileptal) warfarin 10 mg tablet 10 mg PO TUTH 05/27/18 03/11/21 History warfarin 10 mg tablet 15 mg PO SUMOWEFRSA 11/12/20 03/11/21 History divalproex 500 mg tablet,extended 1,000 mg PO QPM #0 tab 11/15/20 03/11/21 Rx release 24 hr acetaminophen 500 mg tablet 1,000 mg PO Q6H PRN 03/11/21 03/11/21 History (Tylenol Extra Strength) baclofen 10 mg tablet 10 mg PO BID PRN 03/11/21 03/11/21 History cyanocobalamin (vitamin B-12) 1,000 mcg PO DAILY 03/11/21 03/11/21 History 1,000 mcg tablet Inpatient Medication List Acetaminophen (Acetaminophen 500 Mg Tab) 1,000 mg PO Q8H PRN PRN Reason: Pain or Fever Stop: 04/10/21 15:23 Last Admin: 03/12/21 15:24 Dose: 1,000 mg Documented by: [id number] Admin: 03/11/21 23:25 Dose: 1,000 mg Documented by: [id number] Admin: 03/11/21 16:02 Dose: 1,000 mg Documented by: [id number] Cyanocobalamin (Cyanocobalamin 500 Mcg Tablet (Vitamin B-12)) 1,000 mcg PO DAILY SACHA Stop: 04/11/21 08:59 Last Admin: 03/12/21 08:22 Dose: 1,000 mcg Documented by: [id number] Divalproex Sodium (Divalproex Extended Release 500 Mg Tab) 1,000 mg PO QPM SACHA Stop: 04/10/21 20:59 Last Admin: 03/11/21 20:14 Dose: 1,000 mg Documented by: [id number] Levetiracetam (Levetiracetam 250 Mg Tab) 250 mg PO BID SACHA Stop: 04/10/21 20:59 Last Admin: 03/12/21 08:23 Dose: 250 mg Documented by: [id number] Admin: 03/11/21 20:30 Dose: 250 mg Documented by: [id number] Levothyroxine Sodium (Levothyroxine Sodium 75 Mcg Tablet) 75 mcg PO DAILYBB SACHA Stop: 04/11/21 06:29 Last Admin: 03/12/21 05:03 Dose: 75 mcg Documented by: [id number] Lidocaine (Lidocaine 5% 1 Patch) 1 patch TD QAM SACHA Stop: 04/11/21 10:59 Last Admin: 03/12/21 12:18 Dose: 1 patch Documented by: [id number] Oxcarbazepine (Oxcarbazepine 150 Mg Tablet) 300 mg PO BID SACHA Stop: 04/10/21 20:59 Last Admin: 03/12/21 08:22 Dose: 300 mg Documented by: [id number] Admin: 03/11/21 20:14 Dose: 300 mg Documented by: [id number] Discontinued Medications Levetiracetam 500 mg/ Sodium (Chloride) 105 mls @ 440 mls/hr IV NOW STA Stop: 03/11/21 14:03 Last Infusion: 03/11/21 15:27 Dose: 0 mls/hr Documented by: [id number] Admin: 03/11/21 14:32 Dose: 440 mls/hr Documented by: [id number] Sodium Chloride (Nss) 500 mls @ 80 mls/hr IV .Q6H15M SACHA Stop: 03/12/21 00:59 Last Infusion: 03/12/21 01:23 Dose: 0 mls/hr Documented by: [id number] Admin: 03/11/21 20:15 Dose: 80 mls/hr Documented by: [id number] Description This is a 21 electrode EEG with a single channel dedicated to limited EKG. The electrodes were placed in accordance with the International 10-20 system. REPORT: At the onset of the EEG the patient is awake. The background is symmetric and well organized. The posterior dominant rhythm consists of 8-8.5 Hz. There is low amplitude faster frequencies in the frontal head region. Drowsiness is characterized by increased theta activity, reduced blink rate, and decreased myogenic artifact. No stage II sleep transients are noted. Photic stimulation does not induce any abnormalities. Interpretation This is a normal awake and drowsy routine EEG. No focal slowing or epileptiform activity is recorded.
--- NOTE | 2021-03-12 17:44 | Progress Notes ---
ADDENDUM This is an addendum to Loren Pérez's note. I have seen the patient and discussed her with Josh Pérez. The patient has a lifetime history of seizures, which for the most part have been gener alized and some otherwise partial complex seizures for which she is on Depakote and Trileptal. She h as had a relative increase in seizures over the last several months. She was admitted to our facilit y in 12/2020 for seizure, at which time she had an MRI of the brain which was noncontributory. She i s scheduled to have an ambulatory EEG and she recently stopped wearing a 2-week site monitor. She had no events during that time. On that background several weeks ago she fell backwards briefly while sitting on a chair and was brie fly unresponsive and had snoring respirations and was confused thereafter. Her did not bring her in for medical attention. Last night he heard her fall in the bathroom and then found her to be face down with snoring respirations that was brief but she was able to get up on her own power while he was calling 911 and she was mildly confused. In the emergency room, she had two episodes of what her describes as partial complex seizure and they consisted of 30-40 seconds of staring with some mild confusion thereafter and no automatisms. She indicates she knows she has had those spells because of an abnormal feeling that she got. She did not bite her tongue or wet herself, but she langley s had some soreness and some bruising around her right eye and her right breast. CT of the head, non contrast, which I reviewed, is unremarkable and I have reviewed the report of a study of 11/[facility], [facility] as stated above was noncontributory. On exam, she is awake and alert. No tongue laceration is noted. There is bruising around the right eye. Normal extraocular motility facial symmetry no upper extremity drift. Lower extremities are an tigravity. IMPRESSION: Breakthrough seizure. Depakote level is therapeutic. Trileptal level is a send out and will be available. We will increase the Trileptal to 450 mg twice a day and then check a level of italo th the Depakote and Trileptal in about 7-10 days. You can keep the Marino on board for now until she is discharged. It would be nice to be able to manage her without additional polypharmacy. She appa rently is scheduled to have an ambulatory EEG and I think that is quite reasonable and we await the r esults of her site monitor. On the whole based on description, I do not believe these events to b e cardiac. Job ID: [id number]
[2021-03-12] MEDS: DIVALPROEX EXTENDED RELEASE 500 MG TAB PO SCH (20:17)
[2021-03-13] MEDS: ACETAMINOPHEN 500 MG TAB PO PRN (05:43)
[2021-03-13] MEDS: LEVOTHYROXINE SODIUM 75 MCG TABLET PO SCH (05:44)
[2021-03-13 07:10] LABS: BUN Creatinine Ratio 23.5 (10-20); Calcium 9.1 mg/dl (8.5-10.1); Creatinine Clr Calc Pharmacy 147.5 ml/min; Est GFR (African American) 120.3 ml/min; Est GFR (Non-African American) 103.8 ml/min; Potassium 3.8 mmol/L (3.5-5.1); Prothrombin Time 19.3 Seconds (9.0-12.0)
[2021-03-13] MEDS: levETIRAcetam 250 MG TAB PO SCH (07:39)
[2021-03-13] MEDS: OXcarbazepine 150 MG TABLET PO SCH (07:39)
[2021-03-13] MEDS: CYANOCOBALAMIN 500 MCG TABLET (VITAMIN B-12) PO SCH (07:39)
[2021-03-13] MEDS: LIDOCAINE 5% 1 PATCH TD SCH (07:40)
--- NOTE | 2021-03-13 12:58 | Hospitalist Progress Note ---
Date of Service March 13, 2021 Assessment & Plan (1) Witnessed seizure-like activity: (2) Seizure disorder: Plan: Patient is a 70 yr female with PMH of seizure disorder, history of syncopal episodes, hypothyroidism, history of PE on Coumadin, FORREST on CPAP and other medical problems listed below who presents after syncopal episode versus seizure at home. Unconsciousness Episode DD: Seizure vs syncopal episode -CT head:No acute intracranial abnormality. -CT neck: No acute cervical spine fracture. Recent outpatient 72h EEG negative for any recorded events EEG: his is a normal awake and drowsy routine EEG. No focal slowing or epileptiform activity is recorded. Negative Orthostatics Follows with Dr. Hutchison as outpatient Continue Depakote 1,000mg HS Increased Trileptal to 540 mg BID Received Keppra --Received during hospital stay, will DC as per Neuro Appreciate Neurology Input Seizure, fall precautions Advised to follow-up with neurology upon discharge (3) Peripheral neuropathy: Plan: Continue B12 supplementation Fall precautions PT/OT evaluation (4) Elevated INR: Plan: INR 5.2>5.0>2.0 No acute bleeding Resume Coumadin today Monitor INR Advised to follow with Coumadin clinic upon discharge (5) History of pulmonary embolism: Plan: INR supratherapeutic (6) Hypothyroidism: Plan: Continue levothyroxine (7) FORREST (obstructive sleep apnea): Plan: CPAP HS DVT Px: Resume Coumadin as able Code status: FULL CODE Admission and Anticipated Discharge Date Admission Date: March 11, 2021 Subjective Patient is seen and examined at bedside Doing well today No new complaints Mild rib soreness but much improved No seizure activity since hospitalization Denies shortness of breath, dizziness, nausea, abdominal pain Plan to discharge home today Review of Systems Review of Systems: All systems reviewed & are unremarkable except as noted in Subjective Physical Exam Physical Exam: Physical Exam: Vitals signs as noted above General Appearance:Obese, no apparent distress Head: normocephalic, Right Periorbital bruising Eyes: normal inspection, EOMI Neck: supple, Trachea midline Respiratory/Chest: Normal breath sounds, CTA, +rib tenderness Cardiovascular: S1, S2, No murmur Abdomen/GI:Soft, Non tender, Bowel sounds present Extremities/Musculoskeletal:normal inspection, 1+ B/L LE edema Neurologic/Psych:AAOX3, grossly no focal neurological deficits, + hearing impairment Skin: normal color, warm Results & Data Results & Data ([facility]) Vital Signs (Past 12 Hours) Vital Signs Temp Pulse Pulse Pulse Resp BP BP 03/13/21 10:23 36.8 C 86 82 20 147/79 H 169/72 H 03/13/21 08:00 36.8 C 80 86 20 147/79 H 03/13/21 03:25 37.0 C 82 19 149/78 H Pulse Ox 03/13/21 10:23 95 03/13/21 08:00 95 03/13/21 03:25 93 Laboratory Results BMP 03/13/21 05:49 Sodium 133 L Potassium 3.8 Chloride 102 Carbon Dioxide 24 BUN 10 Creatinine 0.43 L Glucose 98 Calcium 9.1
--- NOTE | 2021-03-13 13:03 | Discharge Summary ---
Date of Service March 13, 2021 Admission HPI Per Admitting Provider This is a 70-year-old female with PMH of seizure disorder, history of syncopal episodes, hypothyroidism, history of PE on Coumadin, FORREST on CPAP and other medical problems listed below who presents after syncopal episode versus seizure at home this morning. witnessed episode and called EMS but not accompany patient to the ER. Patient remembers getting out of bed and ambulating to bathroom before blacking out and coming to on the floor. During interview with patient in the emergency room, patient had 30 to 40 seconds period of unresponsiveness when she was staring forward. Monitor revealed sinus tachyca rdia at 128 bpm and hypoxia 89% on room air at this time. Patient did not respond to verbal stimuli or sternal rub for 30 seconds but then came to and resumed answering question I had post prior to episode. States that she felt cold following episode but denies any confusion or lethargy. No tongue biting or bowel or bladder incontinence. States that that is a typical seizure episode for her with only prodrome being a pounding heartbeat that is fast. Denies any fever, chills, lightheadedness, chest pain, shortness of breath, nausea, vomiting, abdominal pain, dysuria, diarrhea constipation. Patient with longstanding history of syncopal episodes requiring admission most recently last November. Notes dating back to 2014 by cardiology stated syncope not characteristic of cardiac and likely more fit picture of recurrent seizure. During admission in November 2020, patient had echo with EF of 40%, mild global hypokinesis of left ventricle and grade 1 diastolic dysfunction. Also underwent cardiac catheterization at that time with resulting nonobstructive CAD. Follows with Dr. Hutchison of [facility] neurology most recently seen in clinic March 01 of this past month. Had had another syncopal event 2 weeks earlier that again was described as unusual by neurology and may or may not have underlying seizures. Had a negative 72 hour EEG for any recorded events. No medication changes made to regimen of Depakote and Trileptal at that time. Admission Exam Per Admitting Provider Physical Exam Physical Exam: General Appearance: WD/WN, vitals as above, NAD, sitting up in bed, pleasant, conversing easily Head: normocephalic, atraumatic Eyes: normal inspection, PERRL, conjunctivae normal, anicteric sclerae ENT: hard of hearing, external ear and nose normal, oropharynx normal Neck: normal visual inspection, trachea midline, no thyromegaly Respiratory: normal respiratory effort, lungs clear to auscultation, no wheeze, rales, rhonchi. No accessory muscle use Cardiovascular: regular rate, rhythm, no murmur, normal peripheral pulses, no BLE edema. Vessels: no JVD Chest: normal inspection of chest Abdomen/GI: normal bowel sounds, soft, nontender, no hepatosplenomegaly Extremities/Musculoskeletal: no cyanosis or clubbing, extremities motor strength 5/5 Neurologic: PERRL, EOMI, accommodation nl, no face palsy, no dysarthria, CN's II-XI intact bilaterally and moves all extremities Psychiatric: A+Ox3, euthymic affect Skin: no rashes, normal color, warm/dry Principal Diagnosis Breakthrough seizure Supratherapeutic INR Discharge Data Allergies Allergy/AdvReac Type Severity Reaction Status Date / Time No Known Allergies Allergy Verified 03/11/21 11:03 Consultations 03/11/21 11:19 ED Decision to Admit Stat 03/11/21 15:24 Consult Neurology Routine Ordered Studies 03/11/21 09:26 CT head/brain wo con Stat 03/11/21 10:12 CT cervical spine wo con Stat Hospital Course (1) Witnessed seizure-like activity: (2) Seizure disorder: Patient is a 70 yr female with PMH of seizure disorder, history of syncopal episodes, hypothyroidism, history of PE on Coumadin, FORREST on CPAP and other medical problems listed below who presents after syncopal episode versus seizure at home. Breakthrough seizure -CT head:No acute intracranial abnormality. -CT neck: No acute cervical spine fracture. Recent outpatient 72h EEG negative for any recorded events EEG: his is a normal awake and drowsy routine EEG. No focal slowing or epileptiform activity is recorded. Negative Orthostatics Follows with Dr. Hutchison as outpatient Continue Depakote 1,000mg HS Increased Trileptal to 540 mg BID Received Keppra --Received during hospital stay, will DC as per Neuro Appreciate Neurology Input Seizure, fall precautions Advised to follow-up with neurology upon discharge (3) Peripheral neuropathy: Continue B12 supplementation Fall precautions PT/OT evaluation (4) Elevated INR: INR 5.2>5.0>2.0 No acute bleeding Resume Coumadin today Monitor INR Advised to follow with Coumadin clinic upon discharge (5) History of pulmonary embolism: INR supratherapeutic (6) Hypothyroidism: Continue levothyroxine (7) FORREST (obstructive sleep apnea): CPAP HS DVT Px: Resume Coumadin as able Code status: FULL CODE Total Time Total Time Spent Total Time Spent (In Minutes): 42 minutes Discharge Plan Discharge Items Patient Disposition: Home - Self-Care Reason For Visit: SEIZURE Discharge Diagnosis: Breakthrough seizure Supratherapeutic INR Activity: Per Instructions section Exercise/Sports: Gradually increase as tolerated Non-emergency contact: Primary Care Provider, Specialist and Neurologist Call non-emergency contact if: you have any medication questions, your symptoms worsen, your pain is not controlled, your pain is concerning for you and you have a fever Follow-up/Referrals: Kiki Hay MD [Primary Care Provider] - Diet: Heart Healthy Addtl Attending Provider Instructions: Follow-up with your primary care physician Dr. Hay on March 19, 2021 at 11 AM Follow-up with your neurologist Dr. Hutchison in 2 to 3 weeks Follow-up with Coumadin clinic for management of PT/INR and adjustment of your Coumadin dose as advised Your Trileptal was increased to 540 mg twice a day as recommended by your neurologist. Seek immediate medical attention if your symptoms reoccur or worsen Please take all medications as instructed on discharge list below. Please call if you have any questions or problems. You can reach a [facility] hospitalist on duty at [facility] 24 hours a day by calling [phone] Pending Studies at Discharge: No Stand-Alone Forms: My [facility], Smoking Cessation Medications and DC Order Prescriptions: Continued warfarin 10 mg Tablet 10 mg PO TUTH RF: 0 levothyroxine 75 mcg Capsule 75 mcg PO QAM RF: 0 acetaminophen [Tylenol Extra Strength] 500 mg Tablet 1,000 mg PO Q6H PRN (Reason: Pain) RF: 0 cyanocobalamin (vitamin B-12) 1,000 mcg Tablet 1,000 mcg PO DAILY RF: 0 baclofen 10 mg tablet 10 mg PO BID PRN (Reason: Pain) RF: 0 warfarin 10 mg tablet 15 mg PO SUMOWEFRSA RF: 0 divalproex 500 mg tablet extended release 24 hr 1,000 mg PO QPM Qty: 0 RF: 0 Changed oxcarbazepine [Trileptal] 150 mg Tablet 450 mg PO BID 30 Days Qty: 180 RF: 0 Discharge Orders: Discharge Order (Routine); Ordered 03/13/21 Ordered By: John Youngblood Admission Data Admit Date/Time: 03/11/21 13:35 Attending Provider: John Youngblood Admit Provider: John Yuongblood Primary Care Provider: Kiki Hay Other Providers: John Youngblood ; Julian Pham Other Interventions: Discharge Summary Assessment (RN) Last Done: 03/13/21 10:23
[2021-03-13] MEDS ORDERED: WARFARIN SOD 5 MG TAB PO SCH (16:00)
== END 2021-03-13 14:50 | disposition home or self-care (01) | DRG 101 ==
LOC: ED 09:19 → 2E 13:35

== ENCOUNTER 2021-10-31 16:12 | Inpatient (IN) ==
[2021-10-31 17:49] LABS: Basophils # (auto) 0.03 K/uL (0-0.2); Basophils % (auto) 0.3 %; Eosinophils # (auto) 0.08 K/uL (0-0.5); Eosinophils % (auto) 0.8 %; Hematocrit (blood only) 40.4 % (37-47); Hemoglobin 14.1 g/dL (12.0-16.0); Immature Granulocytes # (auto) 0.02 K/uL (0.00-0.02); Immature Granulocytes % (auto) 0.2 %; Lymphocytes # (auto) 0.79 K/uL (1.2-3.4); Lymphocytes % (auto) 7.9 %; Mean Corpuscular Hemoglobin 31.8 pg (25-34); Mean Corpuscular Hgb Conc 34.9 g/dL (32-36); Mean Platelet Volume 9.6 fL (7.4-10.4); Monocytes # (auto) 0.87 K/uL (0.11-0.59); Monocytes % (auto) 8.7 %; Neutrophils # (auto) 8.25 K/uL (1.4-6.5); Neutrophils % (auto) 82.1 %; Platelet Count 268 K/uL (130-400); RDW Coefficient of Variation 13.3 % (11.5-14.5); RDW Standard Deviation 44.3 fL (36.4-46.3); Red Blood Count 4.44 M/uL (4.2-5.4); White Blood Count 10.04 K/uL (4.8-10.8)
[2021-10-31 18:03] LABS: Partial Thromboplastin Time 27.1 Seconds (21.0-31.0); Prothrombin Time 11.1 Seconds (9.0-12.0)
--- NOTE | 2021-10-31 18:08 | Emergency Department Note ---
History of Present Illness General Chief complaint: Fall Time Seen by Provider: 10/31/21 16:56 History of Present Illness Provider complaint: Fall Onset (ago): hour(s) (11) Location: head Severity: mild Pain Consistency: + constant Maximum Pain Intensity: 3 Current Pain Intensity: 3 Quality: + aching and + dull Relieved By: + none Exacerbated By: + none Associated symptoms: + headaches; no chest pain, no cough, no fever/chills, no nausea/vomiting, no shortness of breath or no weakness 71-year-old female presents emergency department status post fall. Patient reports she fell at 6 AM from seated position. She states she lied on the floor until about 3 PM. She is currently reporting head pain. She is also reporting back pain. No urinary incontinence or numbness. Patient states that she has chronic back pain. Patient states she has a history of seizures and is not sure if she had a seizure today. Patient is on Eliquis. Allergies Allergy/AdvReac Type Severity Reaction Status Date / Time amoxicillin Allergy Rash Verified 10/31/21 22:41 Past Med/Surg History Medical History Cancer SKIN CANCER Deep vein thrombosis Hallucination Hallucinations (05/29/11) Hearing deficit Hypothyroidism Hypothyroidism On home oxygen therapy [place] OXYGEN AT NIGHT (UNSURE OF LITER) Peripheral neuropathy Psychosis Pulmonary embolism Seizure LAST EPISODE (THIS YEAR/UNSURE OF DATE) ? SEIZURE TYPE>FOLLOWS WITH DR. PHOENIX. OLD RECORDS NOTE EPILEPSY Seizure disorder Sleep apnea NO DEVICE USED NOW (CPAP USED IN PAST) Witnessed seizure-like activity Surgical History History of adenoidectomy History of bilateral tubal ligation History of colonoscopy History of tonsillectomy History of tooth extraction Family History Mother Family hx of colon cancer Social History Smoking Status: Never smoker Second Hand Exposure: Yes; Hx Alcohol Use: No Hx Substance Use: No Preferred Language: Yakut Communication Ability: Effective Rn Case Management Required: No Beliefs That Will Affect Care: None Current Living Situation: Spouse Feels Safe at Home: Yes Assistive Devices: Cane, Denture - Upper and Denture - Lower Review of Systems A total of 10 systems reviewed and were otherwise negative Physical Exam Vital Signs Vital Signs - 24 hr 10/31/21 16:03 10/31/21 17:13 Temperature 36.8 C Temperature Source Oral Pulse Rate 107 H 82 Pulse Rhythm Regular Regular Pulse Strength Normal Respiratory Rate 18 Respiratory Effort / Characteristics Non-Labored Respiratory Depth Normal Respiratory Pattern Regular Blood Pressure 133/78 Blood Pressure Mean 96 Blood Pressure Position Sitting Pulse Oximetry 97 95 Oxygen Delivery Method Room Air Room Air Sepsis Recent Fever Within 48 Hours No Sepsis New/Unexplained Change in Mental Status No Sepsis Action Taken by Nursing No Action Required Physical Exam GENERAL: She is oriented to person, place, and time. She appears well-developed and well-nourished. She does not appear distressed. HENT: Exam performed. -Head: Normocephalic and atraumatic. -Right Ear: External ear normal. No mastoid tenderness. -Left Ear: External ear normal. No mastoid tenderness. -Mouth/Throat: The oropharynx is clear and moist. No trismus in the jaw. No dental abscesses or uvula swelling. No oropharyngeal exudate or tonsillar abscesses. EYES: Conjunctivae and EOM are normal. Pupils are equal, round, and reactive to light. Right eye exhibits no discharge. Left eye exhibits no discharge. No scleral icterus. NECK: Normal range of motion. Neck supple. No JVD present. No spinous process tenderness present. No carotid bruit present. No rigidity. No tracheal deviation and normal range of motion present. No Brudzinski's sign and no Kernig's sign noted. CV: Normal rate, regular rhythm, normal heart sounds and intact distal pulses. There is no peripheral edema. Palpable radial pulses bue. PULM/CHEST: Effort normal and breath sounds normal. No respiratory distress. No stridor. She has no wheezes. She has no rales. -Chest Wall: She exhibits no tenderness. ABD: The abdomen is soft and obese. Bowel sounds are normal. There is no tenderness. MUSC/SKEL: Pelvis stable. NEURO: She is alert and oriented to person, place, and time. She has normal strength. No cranial nerve deficit or sensory deficit. GCS eye subscore is 4. GCS verbal subscore is 5. GCS motor subscore is 6. Cerebellar tests wnl. Course Course 165: The patient was evaluated in room A3. A complete history and physical exam was performed Cardiac monitoring: An order was placed for continuous cardiac monitoring. The monitor shows a rate of 80 with sinus rhythm Administered Medications Discontinued Medications Ioversol (Optiray 320 100ml) 95 ml IV ONCE ONE Stop: 10/31/21 19:49 Last Admin: 10/31/21 19:55 Dose: 95 ml Documented by: [id number] Morphine Sulfate (Morphine Sulfate 2 Mg/Ml Carp) 2 mg IV NOW STA Stop: 10/31/21 21:52 Last Admin: 10/31/21 22:23 Dose: 2 mg Documented by: [id number] Medical Decision Making Laboratory Data Result diagrams: 10/31/21 17:35 10/31/21 17:35 Lab Results 10/31/21 10/31/21 10/31/21 Range/Units 16:39 17:35 17:35 WBC 10.04 (4.8-10.8) K/uL RBC 4.44 (4.2-5.4) M/uL Hgb 14.1 (12.0-16.0) g/dL Hct 40.4 (37-47) % MCV 91.0 (80-100) fL MCH 31.8 (25-34) pg MCHC 34.9 (32-36) g/dL RDW Std Deviation 44.3 (36.4-46.3) fL RDW Coeff of Benigno 13.3 (11.5-14.5) % Plt Count 268 (130-400) K/uL MPV 9.6 (7.4-10.4) fL Immature Gran % (Auto) 0.2 % Neut % (Auto) 82.1 % Lymph % (Auto) 7.9 % [place] % (Auto) 8.7 % Eos % (Auto) 0.8 % Baso % (Auto) 0.3 % Neut # (Auto) 8.25 H (1.4-6.5) K/uL Lymph # (Auto) 0.79 L (1.2-3.4) K/uL [place] # (Auto) 0.87 H (0.11-0.59) K/uL Eos # (Auto) 0.08 (0-0.5) K/uL Baso # (Auto) 0.03 (0-0.2) K/uL Immature Gran # (Auto) 0.02 (0.00-0.02) K/uL PT 11.1 (9.0-12.0) Seconds INR 1.0 (0.9-1.1) APTT 27.1 (21.0-31.0) Seconds PTT Ratio 1.0 Sodium (136-145) mmol/L Potassium (3.5-5.1) mmol/L Chloride (98-107) mmol/L Carbon Dioxide (21-32) mmol/L Anion Gap (3-11) BUN (6-23) mg/dl Creatinine (0.6-1.2) mg/dl Est Cr Clr Drug Dosing ml/min Est GFR ( Amer) ml/min Est GFR (Non-Af Amer) ml/min BUN/Creatinine Ratio (10-20) Glucose (70-99(Fasting)) mg/dl POC Glucose 115 H (70-99) mg/dl Calcium (8.5-10.1) mg/dl Total Creatine Kinase (26-192) U/L 10/31/ Range/Units 17:35 WBC (4.8-10.8) K/uL RBC (4.2-5.4) M/uL Hgb (12.0-16.0) g/dL Hct (37-47) % MCV (80-100) fL MCH (25-34) pg MCHC (32-36) g/dL RDW Std Deviation (36.4-46.3) fL RDW Coeff of Benigno (11.5-14.5) % Plt Count (130-400) K/uL MPV (7.4-10.4) fL Immature Gran % (Auto) % Neut % (Auto) % Lymph % (Auto) % [place] % (Auto) % Eos % (Auto) % Baso % (Auto) % Neut # (Auto) (1.4-6.5) K/uL Lymph # (Auto) (1.2-3.4) K/uL [place] # (Auto) (0.11-0.59) K/uL Eos # (Auto) (0-0.5) K/uL Baso # (Auto) (0-0.2) K/uL Immature Gran # (Auto) (0.00-0.02) K/uL PT (9.0-12.0) Seconds INR (0.9-1.1) APTT (21.0-31.0) Seconds PTT Ratio Sodium 133 L (136-145) mmol/L Potassium 3.7 (3.5-5.1) mmol/L Chloride 100 (98-107) mmol/L Carbon Dioxide 26 (21-32) mmol/L Anion Gap 7 (3-11) BUN 7 (6-23) mg/dl Creatinine 0.44 L (0.6-1.2) mg/dl Est Cr Clr Drug Dosing 136.9 ml/min Est GFR ( Amer) 118.5 ml/min Est GFR (Non-Af Amer) 102.3 ml/min BUN/Creatinine Ratio 15.9 (10-20) Glucose 118 H (70-99(Fasting)) mg/dl POC Glucose (70-99) mg/dl Calcium 9.4 (8.5-10.1) mg/dl Total Creatine Kinase 487 H (26-192) U/L Imaging Data Radiologist's Impression: Abdomen/Pelvis CT 10/31/21 17:13 CT SCAN OF THE ABDOMEN AND PELVIS WITH IV CONTRAST CLINICAL HISTORY: Fall. COMPARISON STUDY: Abdominal CT dated 03/06/2019. TECHNIQUE: Following the IV administration of 95 cc of Optiray 320, CT scan of the abdomen and pelvis is performed from the lung bases to the proximal femora. Images are reviewed in the axial, sagittal, and coronal planes. IV contrast was administered without complication. A dose lowering technique was utilized adhering to the principles of ALARA. The examination is degraded by motion artifact. FINDINGS: Lung bases: The heart is mildly enlarged and without pericardial effusion. The lung bases are clear noting dependent atelectasis. There is a small hiatal hernia. Liver: The contrast-enhanced liver is normal in size, contour, and attenuation. There is no intrahepatic biliary ductal dilatation. The hepatic veins and portal veins are patent. Scattered hepatic cysts measure up to 1.9 cm. Gallbladder: Unremarkable. Spleen: Normal in size and attenuation. Pancreas: Unremarkable. Adrenal glands: Unremarkable. Kidneys: The contrast enhanced kidneys demonstrate mild cortical atrophy and are without hydronephrosis. The kidneys enhance symmetrically. Abdominal vasculature: The abdominal aorta is normal in course and caliber noting mild atherosclerotic calcification. Bowel: There is advanced colonic diverticulosis without CT evidence of acute d iverticulitis. No bowel obstruction is seen. Fecal retention is noted throughout the colon. The appendix is well-visualized and normal. Peritoneum: There is no intraperitoneal free air or abdominal ascites. There is a small fat-containing umbilical hernia. Lymphadenopathy: None. Pelvic viscera: The bladder, uterus, and adnexa are normal as visualized. Skeletal structures: The skeletal structures are osteopenic. There is an acute burst type fracture involving the inferior endplate of T12. Fracture extends horizontally through the vertebral body from the anterior to the posterior cortex. This also involves the inferior endplate posteriorly as well as the lateral cortex bilaterally. No retropulsed fragments are identified. Fracture does not appear to involve the posterior elements. No additional acute fracture is seen involving the lumbar spine. There are chronic compression deformities of L1 and L4 with evidence of previous vertebroplasty. There are also mild chronic superior endplate compression deformities of T12 and L2. The bony pelvis and proximal femora appear intact. Sclerotic change is noted in these sacroiliac joints and pubic symphysis. No lytic or blastic lesions are seen. IMPRESSION: 1. There is no evidence of solid organ injury in the abdomen or pelvis. 2. There is an acute burst type compression fracture involving the inferior endplate of T12. Fractures not appear to involve the posterior elements and there are no retropulsed fragments. 3. No additional acute fracture is identified. 4. Colonic diverticulosis without CT evidence of acute diverticulitis. 5. Additional findings as above. ACT 112: Negative or not required by law. Electronically signed by: Janusz Casillas M.D. 10/31/2021 8:[address] 10/31/21 17:13 CT SCAN OF THE CERVICAL SPINE CLINICAL HISTORY: Fall COMPARISON STUDY: CT of the cervical spine dated 03/11/2021. TECHNIQUE: CT scan of the cervical spine is performed from the skull base to the upper thoracic spine. Images are reviewed in the axial, sagittal, and coronal planes. IV contrast was not administered for this examination. A dose lowering technique was utilized adhering to the principles of ALARA. FINDINGS: Skeletal structures: The skeletal structures are osteopenic. There is no evidence of fracture or subluxation involving the cervical spine. Vertebral body height and alignment are maintained. There is minimal retrolisthesis at C7-T1. There is straightening of cervical lordosis. Anterior osteophytes are seen throughout. The odontoid process and lateral masses are intact. The atlantoaxial articulation is preserved noting productive degenerative change. The spinous processes appear intact. There is mild multilevel facet arthropathy. Intervertebral discs: There is moderate to advanced disc space narrowing at all cervical levels, greatest at C5-C6 and C6-C7. Central canal: Posterior disc osteophyte complexes are seen at all cervical levels between C4-C5 and C6-C7. This likely contributes to multilevel acquired compromise of the central canal. Soft tissues: The prevertebral and paraspinous soft tissues are within normal limits. Atherosclerotic calcification is noted in the carotid bulbs. Calvarium: The visualized calvarium at the skull base appears intact. Brain parenchyma: Partially visualized brain parenchyma at the skull base is within normal limits. Sinuses and mastoids: The visualized paranasal sinuses are clear. The mastoid air cells are well pneumatized. Lung apices: Clear as visualized. IMPRESSION: 1. There is no evidence of fracture or subluxation involving the cervical spine. 2. Osteopenia and spondylotic change as above. ACT 112: Negative or not required by law. Electronically signed by: Janusz Casillas M.D. 10/31/2021 8:28 PM Chest X-Ray 10/31/21 17:13 SINGLE VIEW CHEST CLINICAL HISTORY: Fall FINDINGS: An AP, portable, semierect chest radiograph is compared to study dated 03/11/2021. The heart is enlarged. The pulmonary vasculature is noncongested. Chronic interstitial thickening is similar to previous. There is bibasilar scarring/atelectasis. No airspace consolidation or large pleural effusion is identified. No pneumothorax is seen. The skeletal structures are osteopenic. The bony thorax is grossly intact. IMPRESSION: Cardiomegaly with no acute cardiopulmonary abnormality. ACT 112: Negative or not required by law. Electronically signed by: Janusz Casillas M.D. 10/31/2021 7:[address] 10/31/21 17:13 CT SCAN OF THE BRAIN WITHOUT IV CONTRAST CLINICAL HISTORY: Fall. COMPARISON STUDY: CT of the brain dated 03/11/2021. TECHNIQUE: Unenhanced axial CT scan of the brain is performed from the vertex to the skull base. A dose lowering technique was utilized adhering to the principles of ALARA. FINDINGS: Brain parenchyma: There are age-related involutional changes noting mild subcortical and periventricular microangiopathic change. There is no hemorrhage, mass effect, or evidence of acute territorial ischemia by CT criteria. Mendoza- white matter differentiation is preserved. No extra-axial fluid collection is seen. Ventricles, sulci, cisterns: Prominent secondary to involutional change. Intracranial vasculature: There is atherosclerotic calcification of the cavernous carotid and vertebral arteries. Calvarium: The skeletal structures are osteopenic. There is no depressed calvarial fracture. Sinuses and mastoids: The paranasal sinuses are clear. The mastoid air cells are well pneumatized. Orbits: The bony orbits are grossly intact. IMPRESSION: There is no hemorrhage, mass effect, or evidence of acute territorial ischemia by CT criteria. ACT 112: Negative or not required by law. Electronically signed by: Janusz Casillas M.D. 10/31/2021 8:03 PM Pelvis X-Ray 10/31/21 17:14 SINGLE VIEW PELVIS CLINICAL HISTORY: Fall. FINDINGS: An AP, portable, supine pelvic radiograph is compared to study dated 03/06/2019. The skeletal structures are heterogeneously osteopenic. There is no radiographic evidence of acute fracture involving the hips or bony pelvis. Moderate to advanced degenerative joint space narrowing and arthritic change is seen in the hips. Sclerotic change is noted in the sacroiliac joints and pubic symphysis. Vertebroplasty cement is noted in the lower lumbar region. The overlying soft tissues are within normal limits. IMPRESSION: No acute bony abnormality is identified. Electronically signed by: Janusz Casillas M.D. 10/31/2021 8:[address] 10/31/21 18:01 CT SCAN OF THE LUMBAR SPINE WITH IV CONTRAST CLINICAL HISTORY: Fall. COMPARISON STUDY: Abdominal CT scans performed concurrently on 10/31/2021 and dated 03/06/2019. TECHNIQUE: CT scan of the lumbar spine is performed from the lower thoracic spine to the sacrum following the IV administration of 95 cc of Optiray 320. Images are reviewed in the axial, sagittal, and coronal planes. IV contrast was administered without complication. A dose lowering technique was utilized adhering to the principles of ALARA. CT DOSE: 3351.46 mGy.cm FINDINGS: The skeletal structures are osteopenic. There is no evidence of acute fracture or malalignment involving the lumbar spine. There is an acute burst type compression fracture involving the inferior endplate of T12. Fracture involves both the anterior and posterior cortex, extends to the inferior cortex, and also involves the lateral cortex bilaterally. No retropulsed fragments are identified. There is no evidence of posterior element involvement. There are chronic compression deformities of L1 and L4 with evidence of previous vertebroplasty. Mild superior endplate compression deformities of T12 and L2 are also chronic. There is minimal anterolisthesis at L4-L5. Alignment is otherwise preserved. Anterior and lateral marginal osteophytes are seen throughout. Hyperlordosis is noted. The transverse and spinous processes appear intact. There is no spondylolysis. No lytic or blastic lesion is seen. There is moderate disc space narrowing at L5-S1. Mild disc space narrowing is noted at the remaining lumbar levels. There is no CT evidence of large disc herniation or high-grade central canal stenosis. There is a minimally angulated sacral fracture at the level of S2. This is best seen on sagittal image #46. There is trace surrounding hemorrhage. There is only mild paravertebral edema at T12. There is fatty atrophy of the paraspinous musculature. Diverticulosis is partially visualized in the sigmoid colon. There is no retroperitoneal lymphadenopathy. IMPRESSION: 1. There is no evidence of acute fracture or malalignment involving the lumbar spine. 2. Acute burst type fracture of T12 as above. Fracture does not appear to involve the posterior elements and there are no retropulsed fragments. 3. There is a subtle sacral fracture at the level of S2. 4. Chronic lumbar compression deformities as above with evidence of previous michael tebroplasty. ACT 112: Negative or not required by law. Dictated: 10/31/2021 8:17 PM Transcribed: 10/31/2021 8:32 PM Loren [id number] Electronically signed by: Janusz Casillas M.D. 10/31/2021 9:09 PM ECG Data Indication: + weakness Rate (beats per minute): 84 Rhythm: + normal sinus ECG Intervals/blocks: + Normal AL and + Normal QT-c ECG ST segments: + Normal ST segments Additional Comments: QRS 72 MDM Narrative Vital signs stable. Labs within normal limits. Imaging shows burst fracture of T12 but the fracture does not involve the posterior elements that there are no retropulsed fragments. Sacral fracture of S2. Patient was offered inpatient admission for pain control versus outpatient management and pain control. Patient states she does not feel comfortable going home wants to be admitted for pain control. Discussed the case with Valdo HORVATH relocation services specialist for Dr. Cyndy KUMAR. He states he is not relocation services specialist for ED consults but was happy to discuss the imaging results and case with me and he states that the patient can be admitted to medicine for pain control and he and Dr. Carmen can see the patient on routine consult tomorrow. Dr. Mirta Andre hospitalist will evaluate the patient for admission. Impression & Plan Burst fracture of T12 vertebra, Closed sacral fracture Discharge Plan Visit Data Chief Complaint: Fall ED Provider: Ramakrishna Fischer Discharge Problem: Burst fracture of T12 vertebra, Closed sacral fracture Patient Disposition: Being Evaluated by Hospitalist Forms Stand Alone Forms: [facility] Prescriptions Prescriptions: No Action warfarin 10 mg Tablet 10 mg PO TUTH RF: 0 levothyroxine 75 mcg Capsule 75 mcg PO QAM RF: 0 acetaminophen [Tylenol Extra Strength] 500 mg Tablet 1,000 mg PO Q6H PRN (Reason: Pain) RF: 0 cyanocobalamin (vitamin B-12) 1,000 mcg Tablet 1,000 mcg PO DAILY RF: 0 baclofen 10 mg tablet 10 mg PO BID PRN (Reason: Pain) RF: 0 oxcarbazepine [Trileptal] 150 mg Tablet 450 mg PO BID 30 Days Qty: 180 RF: 0 warfarin 10 mg tablet 15 mg PO SUMOWEFRSA RF: 0 divalproex 500 mg tablet extended release 24 hr 1,000 mg PO QPM Qty: 0 RF: 0 Referrals Referrals: Kiki Hay MD [Primary Care Provider] -
[2021-10-31 18:13] LABS: BUN Creatinine Ratio 15.9 (10-20); Calcium 9.4 mg/dl (8.5-10.1); Creatinine Clr Calc Pharmacy 136.9 ml/min; Est GFR (African American) 118.5 ml/min; Est GFR (Non-African American) 102.3 ml/min; Potassium 3.7 mmol/L (3.5-5.1)
--- NOTE | 2021-10-31 19:03 | XRay Report ---
SINGLE VIEW CHEST CLINICAL HISTORY: Fall FINDINGS: An AP, portable, semierect chest radiograph is compared to study dated 03/11/2021. The heart is enlarged. The pulmonary vasculature is noncongested. Chronic interstitial thickening is similar to previous. There is bibasilar scarring/atelectasis. No airspace consolidation or large pleural effusi on is identified. No pneumothorax is seen. The skeletal structures are osteopenic. The bony thorax is grossly intact. IMPRESSION: Cardiomegaly with no acute cardiopulmonary abnormality. ACT 112: Negative or not required by law. Electronically signed by: Janusz Casillas M.D. 10/31/2021 7:01 PM
[2021-10-31] MEDS ORDERED: OPTIRAY 320 100ml IV ONE (19:48)
--- NOTE | 2021-10-31 20:05 | CT Scan Report ---
CT SCAN OF THE BRAIN WITHOUT IV CONTRAST CLINICAL HISTORY: Fall. COMPARISON STUDY: CT of the brain dated 03/11/2021. TECHNIQUE: Unenhanced axial CT scan of the brain is performed from the vertex to the skull base. A do se lowering technique was utilized adhering to the principles of ALARA. FINDINGS: Brain parenchyma: There are age-related involutional changes noting mild subcortical and periventric ular microangiopathic change. There is no hemorrhage, mass effect, or evidence of acute territorial i schemia by CT criteria. Mendoza-white matter differentiation is preserved. No extra-axial fluid collecti on is seen. Ventricles, sulci, cisterns: Prominent secondary to involutional change. Intracranial vasculature: There is atherosclerotic calcification of the cavernous carotid and vertebr al arteries. Calvarium: The skeletal structures are osteopenic. There is no depressed calvarial fracture. Sinuses and mastoids: The paranasal sinuses are clear. The mastoid air cells are well pneumatized. Orbits: The bony orbits are grossly intact. IMPRESSION: There is no hemorrhage, mass effect, or evidence of acute territorial ischemia by CT alex vargas. ACT 112: Negative or not required by law. Electronically signed by: Janusz Casillas M.D. 10/31/2021 8:03 PM
--- NOTE | 2021-10-31 20:16 | CT Scan Report ---
CT SCAN OF THE ABDOMEN AND PELVIS WITH IV CONTRAST CLINICAL HISTORY: Fall. COMPARISON STUDY: Abdominal CT dated 03/06/2019. TECHNIQUE: Following the IV administration of 95 cc of Optiray 320, CT scan of the abdomen and pelvi s is performed from the lung bases to the proximal femora. Images are reviewed in the axial, sagittal , and coronal planes. IV contrast was administered without complication. A dose lowering technique wa s utilized adhering to the principles of ALARA. The examination is degraded by motion artifact. FINDINGS: Lung bases: The heart is mildly enlarged and without pericardial effusion. The lung bases are clear n oting dependent atelectasis. There is a small hiatal hernia. Liver: The contrast-enhanced liver is normal in size, contour, and attenuation. There is no intrahepa tic biliary ductal dilatation. The hepatic veins and portal veins are patent. Scattered hepatic cysts measure up to 1.9 cm. Gallbladder: Unremarkable. Spleen: Normal in size and attenuation. Pancreas: Unremarkable. Adrenal glands: Unremarkable. Kidneys: The contrast enhanced kidneys demonstrate mild cortical atrophy and are without hydronephros is. The kidneys enhance symmetrically. Abdominal vasculature: The abdominal aorta is normal in course and caliber noting mild atheroscleroti c calcification. Bowel: There is advanced colonic diverticulosis without CT evidence of acute diverticulitis. No bowel obstruction is seen. Fecal retention is noted throughout the colon. The appendix is well-visualized and normal. Peritoneum: There is no intraperitoneal free air or abdominal ascites. There is a small fat-containin g umbilical hernia. Lymphadenopathy: None. Pelvic viscera: The bladder, uterus, and adnexa are normal as visualized. Skeletal structures: The skeletal structures are osteopenic. There is an acute burst type fracture in volving the inferior endplate of T12. Fracture extends horizontally through the vertebral body from t he anterior to the posterior cortex. This also involves the inferior endplate posteriorly as well as the lateral cortex bilaterally. No retropulsed fragments are identified. Fracture does not appear to involve the posterior elements. No additional acute fracture is seen involving the lumbar spine. Ther e are chronic compression deformities of L1 and L4 with evidence of previous vertebroplasty. There ar e also mild chronic superior endplate compression deformities of T12 and L2. The bony pelvis and prox imal femora appear intact. Sclerotic change is noted in these sacroiliac joints and pubic symphysis. No lytic or blastic lesions are seen. IMPRESSION: 1. There is no evidence of solid organ injury in the abdomen or pelvis. 2. There is an acute burst type compression fracture involving the inferior endplate of T12. Fracture s not appear to involve the posterior elements and there are no retropulsed fragments. 3. No additional acute fracture is identified. 4. Colonic diverticulosis without CT evidence of acute diverticulitis. 5. Additional findings as above. ACT 112: Negative or not required by law. Electronically signed by: Janusz Casillas M.D. 10/31/2021 8:13 PM
--- NOTE | 2021-10-31 20:19 | XRay Report ---
SINGLE VIEW PELVIS CLINICAL HISTORY: Fall. FINDINGS: An AP, portable, supine pelvic radiograph is compared to study dated 03/06/2019. The skeleta l structures are heterogeneously osteopenic. There is no radiographic evidence of acute fracture invo lving the hips or bony pelvis. Moderate to advanced degenerative joint space narrowing and arthritic change is seen in the hips. Sclerotic change is noted in the sacroiliac joints and pubic symphysis. V ertebroplasty cement is noted in the lower lumbar region. The overlying soft tissues are within jimmy l limits. IMPRESSION: No acute bony abnormality is identified. Electronically signed by: Janusz Casillas M.D. 10/31/2021 8:17 PM
--- NOTE | 2021-10-31 20:30 | CT Scan Report ---
CT SCAN OF THE CERVICAL SPINE CLINICAL HISTORY: Fall COMPARISON STUDY: CT of the cervical spine dated 03/11/2021. TECHNIQUE: CT scan of the cervical spine is performed from the skull base to the upper thoracic spine . Images are reviewed in the axial, sagittal, and coronal planes. IV contrast was not administered fo r this examination. A dose lowering technique was utilized adhering to the principles of ALARA. FINDINGS: Skeletal structures: The skeletal structures are osteopenic. There is no evidence of fracture or subl uxation involving the cervical spine. Vertebral body height and alignment are maintained. There is mi nimal retrolisthesis at C7-T1. There is straightening of cervical lordosis. Anterior osteophytes are seen throughout. The odontoid process and lateral masses are intact. The atlantoaxial articulation is preserved noting productive degenerative change. The spinous processes appear intact. There is mild multilevel facet arthropathy. Intervertebral discs: There is moderate to advanced disc space narrowing at all cervical levels, grea test at C5-C6 and C6-C7. Central canal: Posterior disc osteophyte complexes are seen at all cervical levels between C4-C5 and C6-C7. This likely contributes to multilevel acquired compromise of the central canal. Soft tissues: The prevertebral and paraspinous soft tissues are within normal limits. Atherosclerotic calcification is noted in the carotid bulbs. Calvarium: The visualized calvarium at the skull base appears intact. Brain parenchyma: Partially visualized brain parenchyma at the skull base is within normal limits. Sinuses and mastoids: The visualized paranasal sinuses are clear. The mastoid air cells are well pneu matized. Lung apices: Clear as visualized. IMPRESSION: 1. There is no evidence of fracture or subluxation involving the cervical spine. 2. Osteopenia and spondylotic change as above. ACT 112: Negative or not required by law. Electronically signed by: Janusz Casillas M.D. 10/31/2021 8:28 PM
--- NOTE | 2021-10-31 21:10 | CT Scan Report ---
CT SCAN OF THE LUMBAR SPINE WITH IV CONTRAST CLINICAL HISTORY: Fall. COMPARISON STUDY: Abdominal CT scans performed concurrently on 10/31/2021 and dated 03/06/2019. TECHNIQUE: CT scan of the lumbar spine is performed from the lower thoracic spine to the sacrum follo wing the IV administration of 95 cc of Optiray 320. Images are reviewed in the axial, sagittal, and c oronal planes. IV contrast was administered without complication. A dose lowering technique was utili zed adhering to the principles of ALARA. CT DOSE: 3351.46 mGy.cm FINDINGS: The skeletal structures are osteopenic. There is no evidence of acute fracture or malalignm ent involving the lumbar spine. There is an acute burst type compression fracture involving the infer ior endplate of T12. Fracture involves both the anterior and posterior cortex, extends to the inferio r cortex, and also involves the lateral cortex bilaterally. No retropulsed fragments are identified. There is no evidence of posterior element involvement. There are chronic compression deformities of L 1 and L4 with evidence of previous vertebroplasty. Mild superior endplate compression deformities of T12 and L2 are also chronic. There is minimal anterolisthesis at L4-L5. Alignment is otherwise preser beatriz. Anterior and lateral marginal osteophytes are seen throughout. Hyperlordosis is noted. The trans verse and spinous processes appear intact. There is no spondylolysis. No lytic or blastic lesion is s een. There is moderate disc space narrowing at L5-S1. Mild disc space narrowing is noted at the remai scarlett lumbar levels. There is no CT evidence of large disc herniation or high-grade central canal sten osis. There is a minimally angulated sacral fracture at the level of S2. This is best seen on sagitta l image #46. There is trace surrounding hemorrhage. There is only mild paravertebral edema at T12. Th ere is fatty atrophy of the paraspinous musculature. Diverticulosis is partially visualized in the si gmoid colon. There is no retroperitoneal lymphadenopathy. IMPRESSION: 1. There is no evidence of acute fracture or malalignment involving the lumbar spine. 2. Acute burst type fracture of T12 as above. Fracture does not appear to involve the posterior eleme nts and there are no retropulsed fragments. 3. There is a subtle sacral fracture at the level of S2. 4. Chronic lumbar compression deformities as above with evidence of previous vertebroplasty. ACT 112: Negative or not required by law. Dictated: 10/31/2021 8:17 PM Transcribed: 10/31/2021 8:32 PM Loren [id number] Electronically signed by: Janusz Casillas M.D. 10/31/2021 9:09 PM
[2021-10-31] MEDS ORDERED: MoRPHine SULFATE 2 MG/ML CARP IV STA (21:51)
[2021-10-31] MEDS ORDERED: MoRPHine SULFATE 4 MG/ML 1 ML CARP\\VIAL IV STA (22:31)
[2021-10-31] MEDS ORDERED: LACTATED RINGER'S 1,000 ML IV ONE (22:33)
[2021-10-31] MEDS ORDERED: SODIUM CHLORIDE 0.9% 1000ML 1,000 ML IV SCH (22:45)
--- NOTE | 2021-10-31 23:05 | History & Physical Report ---
Date of Service October 31, 2021 Assessment & Plan (1) Syncope: Plan: Recurrent events Differentials include orthostasis, cardiac dysfunction, breakthrough seizures Thoracic burst fracture secondary to above chronic systolic heart failure (EF 40%, TTE 2020), patient euvolemic to dry hx PE DVT on Eliquis FORREST on CPAP Hyperglycemia rule out DM mood disorder, at baseline Medical telemetry Check orthostatic vitals TTE, Cardiology consult as contemplated by outpatient provider for recurrent syncopal events given cardiac history Continue AED regimen, Neurology follow-up eval for seizures [facility] consult Re: Thoracic fracture Hold Eliquis for now until patient seen by orthopedics check hemoglobin A1c PT OT eval DVT prophylaxis. IV heparin while Eliquis on hold in anticipation of procedural intervention Full code Patient requesting for her to be updated of her progress. Mr. Kenny Shah, contact #[phone]. Text document was generated using [employer] voice recognition software. It may contain grammatical or spelling errors. Kindly contact undersigned for clarification of any documentation item in question. History of Present Illness Chief Complaint: Fall, back pain Primary Care Provider: Kiki Hay MD History obtained from patient and records. Medical history significant for chronic systolic heart failure (EF 40%, TTE 2020), hx PE DVT on Eliquis, FORREST on CPAP, epilepsy, mood disorder. Last confinement March 2021 breakthrough seizure. Trileptal dose increased on discharge. Patient has had recurrent syncopal events leading to falls for about a year now, possibly 6 episodes in the last year as per patient. Back surgery for orthopedic injury secondary to fall while visiting family in [place] in July 2021. Patient attributes syncopal events to uncontrolled seizures. No witnessed G TC seizures. No incontinence. Patient denies chest pain, S OB symptoms. messaged outpatient providers about concerns last week. Keppra added to patient's regimen. Dose to be increased gradually over a 3-week period. Patient seen at PCPs office yesterday. Outpatient Zio patch from 2020 showed many episodes of SVT of short duration considered to be normal as per outpatient documentation. Subtle orthostasis noted at the office. Outpatient TTE, cardio referral contemplated. This morning, patient woke up from her lift chair having wet herself. Patient walked towards the bathroom to change. Unwitnessed syncopal event leading to fall. Not preceded by dizziness, chest pain, S OB symptoms Patient woke up and could not get up. Achy headache and sore all over. No tongue biting. Patient wet herself on the floor because she could not get up. Family found her about 9 hours later after her got back from his [facility] appointment. Patient uncomfortable going home because of back pain. Medical History as above Surgical History : Subcutaneous tumor removal, BTL, lumbar kyphoplasty, tonsillectomy Family History : Dementia, colon cancer, COPD Personal/Social history : Non-smoker, no EtOH intake, retired [employer] employee Allergies Allergy/AdvReac Type Severity Reaction Status Date / Time amoxicillin Allergy Rash Verified 10/31/21 22:41 Home Medications Medication Instructions Recorded Confirmed Type acetaminophen 500 mg tablet 1,000 mg PO Q6H PRN 10/31/21 10/31/21 History (Tylenol Extra Strength) apixaban 5 mg tablet (Eliquis) 5 mg PO BID 10/31/21 10/31/21 History divalproex 500 mg tablet,extended 1,000 mg PO HS 10/31/21 10/31/21 History release 24 hr eszopiclone 2 mg tablet 2 mg PO HS 10/31/21 10/31/21 History levetiracetam 500 mg tablet 250 mg PO HS 10/31/21 10/31/21 History levothyroxine 75 mcg tablet 75 mcg PO DAILY 10/31/21 10/31/21 History (Euthyrox) oxcarbazepine 150 mg tablet 450 mg PO DAILY 10/31/21 10/31/21 History Past Med/Surg History Medical History Cancer SKIN CANCER Deep vein thrombosis Hallucination Hallucinations (05/29/11) Hearing deficit Hypothyroidism Hypothyroidism On home oxygen therapy [place] OXYGEN AT NIGHT (UNSURE OF LITER) Peripheral neuropathy Psychosis Pulmonary embolism Seizure LAST EPISODE (THIS YEAR/UNSURE OF DATE) ? SEIZURE TYPE>FOLLOWS WITH DR. PHOENIX. OLD RECORDS NOTE EPILEPSY Seizure disorder Sleep apnea NO DEVICE USED NOW (CPAP USED IN PAST) Witnessed seizure-like activity Surgical History History of adenoidectomy History of bilateral tubal ligation History of colonoscopy History of tonsillectomy History of tooth extraction Family History Mother Family hx of colon cancer Social History Smoking Status: Never smoker Second Hand Exposure: Yes; Hx Alcohol Use: No Hx Substance Use: No Preferred Language: Japanese Communication Ability: Effective Circular Ripsaw Operator Required: No Beliefs That Will Affect Care: None Current Living Situation: Spouse Feels Safe at Home: Yes Assistive Devices: Cane, Denture - Upper and Denture - Lower Review of Systems Review of Systems: As per HPI, all 10 systems reviewed, all other ROS negative Physical Exam Physical Exam: GENERAL: Slightly uncomfortable, obese, no respiratory distress SKIN: Normal color, warm HEENT: [place] palpebral conjunctivae, no ptosis, dry buccal mucosa NECK : Supple, short neck, no tenderness CHEST : CTA, no tenderness HEART : RRR, no obvious murmurs ABDOMEN: Some distention, nontender BACK : Low back tenderness, limited straight leg raise test EXTREMITIES : Minimal LE swelling, no LE tenderness, no other conspicuous deformities noted NEUROLOGIC : Coherent, no facial asymmetry, gait and stance not assessed Results & Data Results & Data ([facility]) Vital Signs (Past 12 Hours) Vital Signs Temp Pulse Pulse Resp BP BP Pulse Ox 10/31/21 22:33 36.7 C 89 18 98/60 L 92 10/31/21 17:13 82 95 10/31/21 16:03 36.8 C 107 H 18 133/78 97 Laboratory Results Laboratory Results WBC 10.04 K/uL (4.8-10.8) 10/31/21 17:35 RBC 4.44 M/uL (4.2-5.4) 10/31/21 17:35 Hgb 14.1 g/dL (12.0-16.0) 10/31/21 17:35 Hct 40.4 % (37-47) 10/31/21 17:35 MCV 91.0 fL (80-100) 10/31/21 17:35 MCH 31.8 pg (25-34) 10/31/21 17:35 MCHC 34.9 g/dL (32-36) 10/31/21 17:35 RDW Std Deviation 44.3 fL (36.4-46.3) 10/31/21 17:35 RDW Coeff of Benigno 13.3 % (11.5-14.5) 10/31/21 17:35 Plt Count 268 K/uL (130-400) 10/31/21 17:35 MPV 9.6 fL (7.4-10.4) 10/31/21 17:35 Immature Gran % (Auto) 0.2 % 10/31/21 17:35 Neut % (Auto) 82.1 % 10/31/21 17:35 Lymph % (Auto) 7.9 % 10/31/21 17:35 [place] % (Auto) 8.7 % 10/31/21 17:35 Eos % (Auto) 0.8 % 10/31/21 17:35 Baso % (Auto) 0.3 % 10/31/21 17:35 Neut # (Auto) 8.25 K/uL (1.4-6.5) H 10/31/21 17:35 Lymph # (Auto) 0.79 K/uL (1.2-3.4) L 10/31/21 17:35 [place] # (Auto) 0.87 K/uL (0.11-0.59) H 10/31/21 17:35 Eos # (Auto) 0.08 K/uL (0-0.5) 10/31/21 17:35 Baso # (Auto) 0.03 K/uL (0-0.2) 10/31/21 17:35 Immature Gran # (Auto) 0.02 K/uL (0.00-0.02) 10/31/21 17:35 PT 11.1 Seconds (9.0-12.0) 10/31/21 17:35 INR 1.0 (0.9-1.1) 10/31/21 17:35 APTT 27.1 Seconds (21.0-31.0) 10/31/21 17:35 PTT Ratio 1.0 10/31/21 17:35 Sodium 133 mmol/L (136-145) L 10/31/21 17:35 Potassium 3.7 mmol/L (3.5-5.1) 10/31/21 17:35 Chloride 100 mmol/L (98-107) 10/31/21 17:35 Carbon Dioxide 26 mmol/L (21-32) 10/31/21 17:35 Anion Gap 7 (3-11) 10/31/21 17:35 BUN 7 mg/dl (6-23) 10/31/21 17:35 Creatinine 0.44 mg/dl (0.6-1.2) L 10/31/21 17:35 Est Cr Clr Drug Dosing 136.9 ml/min 10/31/21 17:35 Est GFR ( Amer) 118.5 ml/min 10/31/21 17:35 Est GFR (Non-Af Amer) 102.3 ml/min 10/31/21 17:35 BUN/Creatinine Ratio 15.9 (10-20) 10/31/21 17:35 Glucose 118 mg/dl (70-99(Fasting)) H 10/31/21 17:35 POC Glucose 115 mg/dl (70-99) H 10/31/21 16:39 Calcium 9.4 mg/dl (8.5-10.1) 10/31/21 17:35 Magnesium 1.7 mg/dl (1.7-2.4) 10/31/21 17:35 Total Creatine Kinase 487 U/L (26-192) H 10/31/21 17:35 SARS-CoV-2, RNA, NAAT NEGATIVE (NEGATIVE) 10/31/21 22:24 Impressions Abdomen/Pelvis CT 10/31/21 17:13 CT SCAN OF THE ABDOMEN AND PELVIS WITH IV CONTRAST CLINICAL HISTORY: Fall. COMPARISON STUDY: Abdominal CT dated 03/06/2019. TECHNIQUE: Following the IV administration of 95 cc of Optiray 320, CT scan of the abdomen and pelvis is performed from the lung bases to the proximal femora. Images are reviewed in the axial, sagittal, and coronal planes. IV contrast was administered without complication. A dose lowering technique was utilized adhering to the principles of ALARA. The examination is degraded by motion artifact. FINDINGS: Lung bases: The heart is mildly enlarged and without pericardial effusion. The lung bases are clear noting dependent atelectasis. There is a small hiatal hernia. Liver: The contrast-enhanced liver is normal in size, contour, and attenuation. There is no intrahepatic biliary ductal dilatation. The hepatic veins and portal veins are patent. Scattered hepatic cysts measure up to 1.9 cm. Gallbladder: Unremarkable. Spleen: Normal in size and attenuation. Pancreas: Unremarkable. Adrenal glands: Unremarkable. Kidneys: The contrast enhanced kidneys demonstrate mild cortical atrophy and are without hydronephrosis. The kidneys enhance symmetrically. Abdominal vasculature: The abdominal aorta is normal in course and caliber noting mild atherosclerotic calcification. Bowel: There is advanced colonic diverticulosis without CT evidence of acute diverticulitis. No bowel obstruction is seen. Fecal retention is noted throughout the colon. The appendix is well-visualized and normal. Peritoneum: There is no intraperitoneal free air or abdominal ascites. There is a small fat-containing umbilical hernia. Lymphadenopathy: None. Pelvic viscera: The bladder, uterus, and adnexa are normal as visualized. Skeletal structures: The skeletal structures are osteopenic. There is an acute burst type fracture involving the inferior endplate of T12. Fracture extends horizontally through the vertebral body from the anterior to the posterior cortex. This also involves the inferior endplate posteriorly as well as the lateral cortex bilaterally. No retropulsed fragments are identified. Fracture does not appear to involve the posterior elements. No additional acute fracture is seen involving the lumbar spine. There are chronic compression deformities of L1 and L4 with evidence of previous vertebroplasty. There are also mild chronic superior endplate compression deformities of T12 and L2. The bony pelvis and proximal femora appear intact. Sclerotic change is noted in these sacroiliac joints and pubic symphysis. No lytic or blastic lesions are seen. IMPRESSION: 1. There is no evidence of solid organ injury in the abdomen or pelvis. 2. There is an acute burst type compression fracture involving the inferior endplate of T12. Fractures not appear to involve the posterior elements and there are no retropulsed fragments. 3. No additional acute fracture is identified. 4. Colonic diverticulosis without CT evidence of acute diverticulitis. 5. Additional findings as above. ACT 112: Negative or not required by law. Electronically signed by: Janusz Casillas M.D. 10/31/2021 8:[address] 10/31/21 17:13 CT SCAN OF THE CERVICAL SPINE CLINICAL HISTORY: Fall COMPARISON STUDY: CT of the cervical spine dated 03/11/2021. TECHNIQUE: CT scan of the cervical spine is performed from the skull base to the upper thoracic spine. Images are reviewed in the axial, sagittal, and coronal planes. IV contrast was not administered for this examination. A dose lowering technique was utilized adhering to the principles of ALARA. FINDINGS: Skeletal structures: The skeletal structures are osteopenic. There is no evidence of fracture or subluxation involving the cervical spine. Vertebral body height and alignment are maintained. There is minimal retrolisthesis at C7-T1. There is straightening of cervical lordosis. Anterior osteophytes are seen throughout. The odontoid process and lateral masses are intact. The atlantoaxial articulation is preserved noting productive degenerative change. The spinous processes appear intact. There is mild multilevel facet arthropathy. Intervertebral discs: There is moderate to advanced disc space narrowing at all cervical levels, greatest at C5-C6 and C6-C7. Central canal: Posterior disc osteophyte complexes are seen at all cervical levels between C4-C5 and C6-C7. This likely contributes to multilevel acquired compromise of the central canal. Soft tissues: The prevertebral and paraspinous soft tissues are within normal limits. Atherosclerotic calcification is noted in the carotid bulbs. Calvarium: The visualized calvarium at the skull base appears intact. Brain parenchyma: Partially visualized brain parenchyma at the skull base is within normal limits. Sinuses and mastoids: The visualized paranasal sinuses are clear. The mastoid air cells are well pneumatized. Lung apices: Clear as visualized. IMPRESSION: 1. There is no evidence of fracture or subluxation involving the cervical spine. 2. Osteopenia and spondylotic change as above. ACT 112: Negative or not required by law. Electronically signed by: Janusz Casillas M.D. 10/31/2021 8:28 PM Chest X-Ray 10/31/21 17:13 SINGLE VIEW CHEST CLINICAL HISTORY: Fall FINDINGS: An AP, portable, semierect chest radiograph is compared to study dated 03/11/2021. The heart is enlarged. The pulmonary vasculature is noncongested. Chronic interstitial thickening is similar to previous. There is bibasilar scarring/atelectasis. No airspace consolidation or large pleural effusion is identified. No pneumothorax is seen. The skeletal structures are osteopenic. The bony thorax is grossly intact. IMPRESSION: Cardiomegaly with no acute cardiopulmonary abnormality. ACT 112: Negative or not required by law. Electronically signed by: Janusz Casillas M.D. 10/31/2021 7:[address] 10/31/21 17:13 CT SCAN OF THE BRAIN WITHOUT IV CONTRAST CLINICAL HISTORY: Fall. COMPARISON STUDY: CT of the brain dated 03/11/2021. TECHNIQUE: Unenhanced axial CT scan of the brain is performed from the vertex to the skull base. A dose lowering technique was utilized adhering to the p rinciples of ASHLEY. FINDINGS: Brain parenchyma: There are age-related involutional changes noting mild subcortical and periventricular microangiopathic change. There is no hemorrhage, mass effect, or evidence of acute territorial ischemia by CT criteria. [place]- white matter differentiation is preserved. No extra-axial fluid collection is seen. Ventricles, sulci, cisterns: Prominent secondary to involutional change. Intracranial vasculature: There is atherosclerotic calcification of the cavernous carotid and vertebral arteries. Calvarium: The skeletal structures are osteopenic. There is no depressed calvarial fracture. Sinuses and mastoids: The paranasal sinuses are clear. The mastoid air cells are well pneumatized. Orbits: The bony orbits are grossly intact. IMPRESSION: There is no hemorrhage, mass effect, or evidence of acute territorial ischemia by CT criteria. ACT 112: Negative or not required by law. Electronically signed by: Janusz Casillas M.D. 10/31/2021 8:03 PM Pelvis X-Ray 10/31/21 17:14 SINGLE VIEW PELVIS CLINICAL HISTORY: Fall. FINDINGS: An AP, portable, supine pelvic radiograph is compared to study dated 03/06/2019. The skeletal structures are heterogeneously osteopenic. There is no radiographic evidence of acute fracture involving the hips or bony pelvis. Moderate to advanced degenerative joint space narrowing and arthritic change is seen in the hips. Sclerotic change is noted in the sacroiliac joints and pubic symphysis. Vertebroplasty cement is noted in the lower lumbar region. The overlying soft tissues are within normal limits. IMPRESSION: No acute bony abnormality is identified. Electronically signed by: Janusz Casillas M.D. 10/31/2021 8:[address] 10/31/21 18:01 CT SCAN OF THE LUMBAR SPINE WITH IV CONTRAST CLINICAL HISTORY: Fall. COMPARISON STUDY: Abdominal CT scans performed concurrently on 10/31/2021 and dated 03/06/2019. TECHNIQUE: CT scan of the lumbar spine is performed from the lower thoracic spine to the sacrum following the IV administration of 95 cc of Optiray 320. Images are reviewed in the axial, sagittal, and coronal planes. IV contrast was administered without complication. A dose lowering technique was utilized adhering to the principles of ALARA. CT DOSE: 3351.46 mGy.cm FINDINGS: The skeletal structures are osteopenic. There is no evidence of acute fracture or malalignment involving the lumbar spine. There is an acute burst type compression fracture involving the inferior endplate of T12. Fracture involves both the anterior and posterior cortex, extends to the inferior cortex, and also involves the lateral cortex bilaterally. No retropulsed fragments are identified. There is no evidence of posterior element involvement. There are chronic compression deformities of L1 and L4 with evidence of previous vertebroplasty. Mild superior endplate compression deformities of T12 and L2 are also chronic. There is minimal anterolisthesis at L4-L5. Alignment is otherwise preserved. Anterior and lateral marginal osteophytes are seen throughout. Hyperlordosis is noted. The transverse and spinous processes appear intact. There is no spondylolysis. No lytic or blastic lesion is seen. There is moderate disc space narrowing at L5-S1. Mild disc space narrowing is noted at the remaining lumbar levels. There is no CT evidence of large disc herniation or high-grade central canal stenosis. There is a minimally angulated sacral fracture at the level of S2. This is best seen on sagittal image #46. There is trace surrounding hemorrhage. There is only mild paravertebral edema at T12. There is fatty atrophy of the paraspinous musculature. Diverticulosis is partially visualized in the sigmoid colon. There is no retroperitoneal lymphadenopathy. IMPRESSION: 1. There is no evidence of acute fracture or malalignment involving the lumbar spine. 2. Acute burst type fracture of T12 as above. Fracture does not appear to involve the posterior elements and there are no retropulsed fragments. 3. There is a subtle sacral fracture at the level of S2. 4. Chronic lumbar compression deformities as above with evidence of previous vertebroplasty. ACT 112: Negative or not required by law. Dictated: 10/31/2021 8:17 PM Transcribed: 10/31/2021 8:32 PM Loren [id number] Electronically signed by: Janusz Casillas M.D. 10/31/2021 9:09 PM Diagnostic Findings EKG as per my interpretation: Rate 85, NSR, normal axis, no ischemia
[2021-10-31] MEDS ORDERED: Heparin IV Adult Wt-Based Low-Dose *NO* Bolus Protocol IV SCH (23:06)
[2021-10-31] MEDS ORDERED: HEPARIN SODIUM/DEXTROSE 25,000 UNITS/500 ML BAG IV SCH (23:15)
[2021-11-01] MEDS ORDERED: LORazepam 2 MG/1 ML VIAL IV PRN (00:47)
[2021-11-01] MEDS ORDERED: oxyCODONE HCL IR 5 MG TAB (IMMEDIATE RELEASE) PO PRN (00:47)
[2021-11-01] MEDS ORDERED: PROMETHAZINE HCL 12.5 MG in SODIUM CHLORIDE 0.9% 50 ML IV PRN (00:47)
[2021-11-01] MEDS ORDERED: MoRPHine SULFATE 4 MG/ML 1 ML CARP\\VIAL IV PRN (00:47)
[2021-11-01] MEDS ORDERED: levETIRAcetam 250 MG TAB PO SCH ×4 (01:35→21:00)
[2021-11-01 01:40] LABS: Appearance Urine Clear (Clear); Bacteria Urine Automated 4+ (Negative); Bilirubin Urine Negative (Negative); Blood Urine Trace (Negative); Color Urine Yellow; Epithelial Cell Urine Auto >30 /lpf (0-5); Glucose Urine UA Negative (Negative); Ketones Urine 1+ (Negative); Leukocyte Esterase Urine 1+ (Negative); Nitrite Urine Positive (Negative); Specific Gravity Urine > 1.045 (1.000-1.030); Urobilinogen Urine Negative (Negative); WBC Urine Automated >30 /hpf (0-5)
[2021-11-01 01:52] LABS: Protein Urine Trace (Negative)
[2021-11-01] MEDS: LIDOCAINE 5% 1 PATCH TD SCH ×2 (03:01→22:29)
[2021-11-01] MEDS: OXcarbazepine 150 MG TABLET PO SCH ×2 (03:02→08:31)
[2021-11-01] MEDS: DIVALPROEX EXTENDED RELEASE 500 MG TAB PO SCH ×2 (03:02→22:27)
[2021-11-01] MEDS: ACETAMINOPHEN 325 MG TAB PO PRN ×2 (04:27→21:30)
[2021-11-01] MEDS: LEVOTHYROXINE SODIUM 75 MCG TABLET PO SCH (06:49)
[2021-11-01 07:25] LABS: Basophils # (auto) 0.04 K/uL (0-0.2); Basophils % (auto) 0.7 %; Eosinophils # (auto) 0.28 K/uL (0-0.5); Eosinophils % (auto) 4.6 %; Hematocrit (blood only) 38.9 % (37-47); Immature Granulocytes # (auto) 0.01 K/uL (0.00-0.02); Immature Granulocytes % (auto) 0.2 %; Lymphocytes # (auto) 1.11 K/uL (1.2-3.4); Lymphocytes % (auto) 18.4 %; Mean Corpuscular Hemoglobin 30.9 pg (25-34); Mean Corpuscular Hgb Conc 33.4 g/dL (32-36); Mean Corpuscular Volume 92.4 fL (80-100); Mean Platelet Volume 9.6 fL (7.4-10.4); Monocytes # (auto) 0.52 K/uL (0.11-0.59); Monocytes % (auto) 8.6 %; Neutrophils # (auto) 4.08 K/uL (1.4-6.5); Neutrophils % (auto) 67.5 %; Platelet Count 222 K/uL (130-400); RDW Coefficient of Variation 13.6 % (11.5-14.5); RDW Standard Deviation 46.6 fL (36.4-46.3); Red Blood Count 4.21 M/uL (4.2-5.4); White Blood Count 6.04 K/uL (4.8-10.8)
[2021-11-01 07:40] LABS: Partial Thromboplastin Ratio 1.1; Partial Thromboplastin Time 31.6 Seconds (21.0-31.0)
[2021-11-01 07:49] LABS: Calcium 8.6 mg/dl (8.5-10.1); Creatinine Clr Calc Pharmacy 150.6 ml/min; Est GFR (African American) 122.3 ml/min; Est GFR (Non-African American) 105.5 ml/min; Potassium 3.6 mmol/L (3.5-5.1)
[2021-11-01 07:50] LABS: Estimated Average Glucose 97 mg/dl
[2021-11-01] MEDS ORDERED: HEPARIN SOD (PORCINE) 1000 UNIT/ML ONE (07:52)
--- NOTE | 2021-11-01 08:05 | Cardiology Consultation ---
Date of Consultation November 01, 2021 Assessment & Plan (1) Syncope: (2) SVT (supraventricular tachycardia): (3) Seizure disorder: Episodes of syncope without warning. On going x1+ years now. Did have some mild orthostasis at PCP office. Differentials of possibly orthostatic hypotension, vasovagal syncope, cardiac arrhythmias, vs breakthrough seizures. Multiple episodes of short salvos of SVT on out patient zio- non triggered, no syncope at this time. 1. Recommend continuing to watch telemetry 2. Echo obtained, further recommendations pending results. 3. Will allow for a slightly higher blood pressure in this acute setting. Avoid antihypertensive agents to minimize the risk of orthostasis 4. May benefit from EP evaluation for possible Linq insert should source of syncope not be found. 5. Agree with Neurology follow-up evaluation for seizures. (4) Burst fracture of T12 vertebra: Defer to primary team and ortho regarding fracture managmenet. Supervising Physician Co-Signing Physician Notes Supervising Physician Attestation: I have personally performed a history and physical examination on the patient. I agree with the physician insurance underwriting assistant's findings and plan as documented with the following additions. Subjective: Patient describes having woken up underneath her dining room table, not knowing how she got there. Recurrent episodes as such over the last few months as outlined. Telemetry thus far unremarkable, sinus rhythm in the 70s. No episode occurred when she wore the Zio rail flaw detector operator in the summer 2020, with brief asymptomatic salvos of SVT noted at that time, which I do not think are pathologic. Exam: Cardiovascular: Regular rhythm no murmur, no edema Pulmonary: Clear to auscultation bilaterally Extremities: No edema Data: EKG reveals sinus rhythm, artifact, no significant abnormalities. Echocardiogram performed today and reviewed independently reveals normal LV wall motion normal LVEF, 60-65%, normal right ventricular chamber size and systolic function. Compared to the prior echocardiogram performed November,, there is been interval improvement in the left ventricular systolic function. Assessment and Plan: Recurrent episodes of loss of postural tone, seemingly followed by transient loss of consciousness -Recommend proceeding with an implantable loop recorder for further long-term evaluation of cardiac rhythm. Patient agreeable. Attempted to reach her , Rod Shah, mobile [phone], unable to connect with him. Left a voicemail and will try again. Сергей Kwan, History of Present Illness Reason for Consultation: Syncope Requesting Physician: Jes Hospitalist Attending Physician: Korin Hartmann MD History of Present Illness 71 year old female. Presented to [facility] due to concerns of syncope. Has not followed with any of our out patient cardiology providers, but is scheduled to see Dr. Cerrato on 12/06. Patient having multiple episodes of syncope over the last year (at least 6). Patient attributes her syncopal episodes to seizure activity. Keppra was added to the patients regimen last week. Saw by PCP on 10/30- Subtle orthostasis noted at the office. Outpatient zio (02/2021) showed multiple short salvos of SVT- non-triggered, EP consulted. Patient noted that she did not have any syncope during the time of wearing the monitor. Previously seen at [facility] by Dr. Kwan in November of 2020 d/t a syncopal episode, she was cathed at this time due to transient ischemic EKG changes and an elevated Troponin. Echo performed in the setting of sinus tachycardia 110 bpm, revealed mild diffuse global left ventricular hypokinesis, LVEF 40-45%. Cardiac catheterization revealed no obstructive coronary culprit, 20% ostial circumflex. Tele: SR 70-80s EKG: Poor tracing, but looks to be SR 80s -Head CT negative -Spine CT: There is no evidence of acute fracture or malalignment involving the lumbar spine. Acute burst type fracture of T12 as above. Fracture does not appear to involve the posterior elements and there are no retropulsed fragments. There is a subtle sacral fracture at the level of S2. Chronic lumbar compression deformities as above with evidence of previous vertebroplasty -Echo pending. Upon entrance into the room patient was resting in bed comfortable with her present eating breakfast. Denied any acute concerns. She is somewhat of a poor historian, assists with history. Denies any recent episodes of chest pain or shortness of breath. Does not have concerns regarding dizziness/lightheadedness. Notes that all of her syncopal episodes happen without warning- witness one episode where she fell straight backwards "like a tree falling". Occurred without warning when she was standing at the sink in her kitchen. Denies any episodes of incontinence or seizure like activity at this time. Episodes only occur when she is standing or walking, never when she is sitting or laying. Most recent episode she was at home alone and per the laid on the floor from 6am to 3pm. She was conscious, just could not stand up. Very unsteady on her feet. Uses a walker. 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 Mood disorder Allergies Allergy/AdvReac Type Severity Reaction Status Date / Time amoxicillin Allergy Rash Verified 10/31/21 22:41 Home Medications Medication Instructions Recorded Confirmed Type acetaminophen 500 mg tablet 1,000 mg PO Q6H PRN 10/31/21 10/31/21 History (Tylenol Extra Strength) apixaban 5 mg tablet (Eliquis) 5 mg PO BID 10/31/21 10/31/21 History divalproex 500 mg tablet,extended 1,000 mg PO HS 10/31/21 10/31/21 History release 24 hr eszopiclone 2 mg tablet 2 mg PO HS 10/31/21 10/31/21 History levetiracetam 500 mg tablet 250 mg PO HS 10/31/21 10/31/21 History levothyroxine 75 mcg tablet 75 mcg PO DAILY 10/31/21 10/31/21 History (Euthyrox) oxcarbazepine 150 mg tablet 450 mg PO DAILY 10/31/21 10/31/21 History Patient History Medical History Cancer SKIN CANCER Deep vein thrombosis Hallucination Hallucinations (05/29/11) Hearing deficit Hypothyroidism Hypothyroidism On home oxygen therapy [place] OXYGEN AT NIGHT (UNSURE OF LITER) Peripheral neuropathy Psychosis Pulmonary embolism Seizure LAST EPISODE (THIS YEAR/UNSURE OF DATE) ? SEIZURE TYPE>FOLLOWS WITH DR. PHOENIX. 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 A+Ox3. HEENT: Normocephalic. Atraumatic. Conjunctiva and sclera clear. NECK: No carotid bruits. No JVD. Carotid upstrokes are brisk. Heart: RRR. S1 and S2 noted. + faint systolic murmur Lungs: Clear to auscultation. No wheezes, rhonchi, rales. Abdomen: Normal bowel sounds. Soft. Nontender. Obese. Extremities: Trace BL nonpitting lower extremity lymphadema. No clubbing or cyanosis. +BL varicosities Pulses: radial=2/4, posterior tibial=2/4, dorsalis pedis = 2/4. NEURO: No focal deficits. PSYCH: Normal. Results & Data ([facility]) Vital Signs (Past 12 Hours) Vital Signs Temp Pulse Resp BP Pulse Ox 11/01/21 05:00 81 21 119/83 90 11/01/21 03:00 87 18 133/78 93 11/01/21 01:10 89 18 100/62 93 11/01/21 00:47 86 16 126/74 92 10/31/21 22:33 36.7 C 89 18 98/60 L 92 Laboratory Results Coagulation 10/31/21 11/01/21 Range/Units 17:35 07:05 PT 11.1 (9.0-12.0) Seconds APTT 27.1 31.6 H (21.0-31.0) Seconds CBC 10/31/21 11/01/21 Range/Units 17:35 07:05 WBC 10.04 6.04 (4.8-10.8) K/uL RBC 4.44 4.21 (4.2-5.4) M/uL Hgb 14.1 13.0 (12.0-16.0) g/dL Hct 40.4 38.9 (37-47) % Plt Count 268 222 (130-400) K/uL Neut # (Auto) 8.25 H 4.08 (1.4-6.5) K/uL Lymph # (Auto) 0.79 L 1.11 L (1.2-3.4) K/uL Storey # (Auto) 0.87 H 0.52 (0.11-0.59) K/uL Eos # (Auto) 0.08 0.28 (0-0.5) K/uL Baso # (Auto) 0.03 0.04 (0-0.2) K/uL Comprehensive Metabolic Panel 10/31/21 11/01/21 Range/Units 17:35 07:05 Sodium 133 L 132 L (136-145) mmol/L Potassium 3.7 3.6 (3.5-5.1) mmol/L Chloride 100 101 (98-107) mmol/L Carbon Dioxide 26 23 (21-32) mmol/L BUN 7 6 (6-23) mg/dl Creatinine 0.44 L 0.40 L (0.6-1.2) mg/dl Glucose 118 H 103 H (70-99(Fasting)) mg/dl Calcium 9.4 8.6 (8.5-10.1) mg/dl Intake and Output 10/31/21 11/01/21 11/01/21 22:59 06:59 14:59 Intake Total 115.033 / 115.033 Balance 115.033 / 115.033 Intake: IV 115.033 / 115.033 Heparin Sodium/Dextrose 25,000 115.033 / 115.033 units In 500 ml @ 850 UNITS/HR 17 mls/hr IV .Q24H [facility] Rx#: [id number] Other: Weight 100.2 kg 100.2 kg Weight Measurement [facility] Patient Weight 11/02/21 06:59 Weight 100.2 kg Diagnostic Findings Out[facility] 02/2021 Patient had a min HR of 54 bpm, max HR of 182 bpm, and avg HR of 72 bpm. Predominant underlying rhythm was Sinus Rhythm. 37 Supraventricular Tachycardia runs occurred, the run with the fastest interval lasting 6 beats with a max rate of 182 bpm, the longest lasting 15.1 secs with an avg rate of 129 bpm. Isolated SVEs were rare (<1.0%), SVE Couplets were rare (<1.0%), and SVE Triplets were rare (<1.0%). Isolated VEs were rare (<1.0%), VE Couplets were rare (<1.0%), and no VE Triplets were present. No patient markers or diary entries were submitted Echo 11/12/2020 LVEF 40%, mild global hypokinesis mild concentric LVH RV normal LA mildly dilated Mild MR Mod Aortic sclerosis, no stenosis Grade 1 diastolic dysfunction
[2021-11-01] MEDS ORDERED: OXcarbazepine 150 MG TABLET PO SCH (09:00)
--- NOTE | 2021-11-01 11:38 | CT Scan Report ---
CT thoracic spine wo con CLINICAL HISTORY: Fall. Lumbosacral fracture. TECHNIQUE: Multidetector row helical CT of the thoracic spine was performed without administration of intravenous contrast. Coronal and sagittal reformations were obtained. Automated dose lowering techn iques and/or adjustment according to patient size were utilized for this exam. Comparison: Comparison is made to CTA chest from 11/28/2020 FINDINGS: There is compression deformity at T4 and T12. The T4 deformity appears acute with fracture of the sup erior endplate. The T12 fracture contains a complex acute component in the inferior endplate superimp osed on chronic degenerative changes. There is approximately 2 mm retropulsion of fragments into the spinal canal. Degenerative changes are noted in the visualized spine. Vertebral body alignment is wit hin normal limits. Surrounding soft tissues are unremarkable. IMPRESSION: Minimally displaced fracture of the T4 superior endplate. Mildly comminuted fracture of the T12 verte bral body is seen. There is minimal retropulsion of approximately 2 mm. ACT 112: Negative or not required by law. Electronically signed by: Tenzin Hussein M.D. 11/01/2021 11:37 AM
--- NOTE | 2021-11-01 11:55 | Neurology Consultation ---
Date of Consultation November 01, 2021 Assessment & Plan (1) Syncope: 1. currently has implanted heart monitor 2. will order 72 hour EEG as outpatient for further work up of possible seizure 3. continue Keppra 250 mg hs 4. continue oxcarbazepine 450 mg daily 5. she does not drive 6. continue depakote 1000 mg hs 7. unclear if this was a seizure or cardiac related no increase in AEDs at this time, AED levels are in the therapeutic range will follow up in outpatient clinic 4-6 weeks after discharge and arrange EEG. (2) Burst fracture of T12 vertebra: Supervising Physician Co-Signing Physician Notes I have seen and discussed above patient with Dr Loren Rudolph, neurology Patient seen and examined at the bedside and serves as the only historian I have reviewed the chart and discussed her case with Loren Pérez. Apparently this patient has had episodes of repetitive abnormal feelings over time and that continues to be the case although those abnormal feelings do not precede these episodes of loss of consciousness that have been witnessed at least once and resulted in her falling stiffly and not not followed by seizure activity. Daughter has seizure as well. I understand that she has had some inpatient monitoring for seizure in the past. The evening prior to admission the patient woke up and found that she had been incontinent which is not unusual for her. She has had some nocturnal inco ntinence since being in a snf. She next remembers finding herself on the floor with back pain. She was down on the floor for 9 hours and was incontinent several times but aware of that. She did not bite her tongue This admission her white count was normal. Prolactin level was not tested. CT of the head done because of trauma was noncontributory On exam the patient is awake and alert mildly irritable there is normal facial symmetry no drift in the uppers full strength in the lowers normal [id number] and [id number] Impression this patient carries a history of seizures. The abnormal feelings could be a partial complex seizure but it is unclear if these episodes of stiffening with loss of consciousness represent seizure dysrhythmia. Agree with implantable loop monitor. Will arrange an ambulatory EEG as an outpatient. No change in anticonvulsants at present. Patient should see Loren in a day or Dr. Hutchison in follow-up post discharge. Loren Rudolph MD History of Present Illness Reason for Consultation: seizure follow up Requesting Physician: Korin Hartmann MD Attending Physician: Korin Hartmann MD History of Present Illness Sintia is a 71 year old female who has a chronic systolic heart failure (EF 40%, TTE 2020), hx PE DVT on Eliquis, FORREST on CPAP, epilepsy, mood disorder. She had a breakthrough seizure in March 2021.And her Trileptal dose was increased on discharge. She has had recurrent syncopal events and falls over the past year. He back surgery for orthopedic injury secondary to fall while visiting family in [place] in July of 2021. She attibutes the falls to uncontrolled seizures. She was admitted 10/31/21 after she woke from her lift chair having wet herself and walked to the bathroom to change and had an unwitnessed syncope episode and fall. There was no tongue biting. Her family found her 9 hours later after her returned from an appointment in [place]. She is having alot of pain in her back. orthodics issued a brace with she thinks helps with the back pain when she gets OOB. denies CP, SOB, headache. Allergies Allergy/AdvReac Type Severity Reaction Status Date / Time amoxicillin Allergy Rash Verified 10/31/21 22:41 Home Medications Medication Instructions Recorded Confirmed Type acetaminophen 500 mg tablet 1,000 mg PO Q6H PRN 10/31/21 10/31/21 History (Tylenol Extra Strength) apixaban 5 mg tablet (Eliquis) 5 mg PO BID 10/31/21 10/31/21 History divalproex 500 mg tablet,extended 1,000 mg PO HS 10/31/21 10/31/21 History release 24 hr eszopiclone 2 mg tablet 2 mg PO HS 10/31/21 10/31/21 History levetiracetam 500 mg tablet 250 mg PO HS 10/31/21 10/31/21 History levothyroxine 75 mcg tablet 75 mcg PO DAILY 10/31/21 10/31/21 History (Euthyrox) oxcarbazepine 150 mg tablet 450 mg PO DAILY 10/31/21 10/31/21 History Patient History Medical History Cancer SKIN CANCER Deep vein thrombosis Hallucination Hallucinations (05/29/11) Hearing deficit Hypothyroidism Hypothyroidism On home oxygen therapy [place] OXYGEN AT NIGHT (UNSURE OF LITER) Peripheral neuropathy Psychosis Pulmonary embolism Seizure LAST EPISODE (THIS YEAR/UNSURE OF DATE) ? SEIZURE TYPE>FOLLOWS WITH DR. PHOENIX. OLD RECORDS NOTE EPILEPSY Seizure disorder Sleep apnea NO DEVICE USED NOW (CPAP USED IN PAST) Witnessed seizure-like activity Surgical History History of adenoidectomy History of bilateral tubal ligation History of colonoscopy History of tonsillectomy History of tooth extraction Family History Mother Family hx of colon cancer Social History Smoking Status: Never smoker Second Hand Exposure: Yes; Hx Alcohol Use: No Hx Substance Use: No Preferred Language: Guinean Communication Ability: Effective Director Data Architecture Required: No Beliefs That Will Affect Care: None marital status: Current Living Situation: Spouse How many Children do You have: 5 Other Information That Helps Us Care for You: No Feels Safe at Home: Yes Safety Concerns: Feels Safe At This Time Assistive Devices: Denture - Upper, Denture - Lower, Glasses and Walker Review of Systems Review of Systems: All systems reviewed & are unremarkable except as noted in HPI & below Physical Exam Physical Exam: Physical Exam: Constitutional: appearance over nourished Ears, Nose, Mouth and Throat: mucous membranes moist, no injection and skin normal, eyes normal Cardiovascular: normal S-1 and S-2 and regular rate and rhythm Respiratory: course breath sounds Musculoskeletal: no peripheral edema and good distal pulses Skin: no stigmata of neurocutaneous disease noted and normal and intact Eyes: extraocular muscles intact (EOMI) and pupils equal, round and reactive to light (PERRL), miotic NEUROLOGIC EXAMINATION: Mental status: Alert and interactive Oriented to person Speech fluent with no evidence of aphasia Cranial Nerves smile eye brow raise symmetric Reflexes: Deep tendon reflexes were decreased Sensory: light and cool touch Coordination: finger to nose Gait/Stance: Posture lying in bed Strength: 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 Results & Data ([facility]) Vital Signs (Past 12 Hours) Vital Signs Temp Pulse Resp BP Pulse Ox 11/01/21 08:20 36.5 C 79 18 140/88 95 11/01/21 05:00 81 21 119/83 90 11/01/21 03:00 87 18 133/78 93 11/01/21 01:10 89 18 100/62 93 11/01/21 00:47 86 16 126/74 92 Laboratory Results Abnormal lab results 10/31/21 10/31/21 10/31/21 Range/Units 16:39 17:35 17:35 RDW Std Deviation (36.4-46.3) fL Neut # (Auto) 8.25 H (1.4-6.5) K/uL Lymph # (Auto) 0.79 L (1.2-3.4) K/uL Hopkins # (Auto) 0.87 H (0.11-0.59) K/uL APTT (21.0-31.0) Seconds Sodium 133 L (136-145) mmol/L Creatinine 0.44 L (0.6-1.2) mg/dl Glucose 118 H (70-99(Fasting)) mg/dl POC Glucose 115 H (70-99) mg/dl Total Creatine Kinase 487 H (26-192) U/L Urine pH (4.5-7.5) Ur Specific Stratton (1.000-1.030) Urine Protein (Negative) Urine Ketones (Negative) Urine Blood (Negative) Urine Nitrite (Negative) Ur Leukocyte Esterase (Negative) Urine WBC (Auto) (0-5) /hpf Urine RBC (Auto) (0-4) /hpf U Epithel Cells (Auto) (0-5) /lpf Urine Bacteria (Auto) (Negative) Valproic Acid (50-100) mcg/ml 10/31/21 11/01/21 11/01/21 Range/Units 22:32 01:00 07:05 RDW Std Deviation 46.6 H (36.4-46.3) fL Neut # (Auto) (1.4-6.5) K/uL Lymph # (Auto) 1.11 L (1.2-3.4) K/uL Hopkins # (Auto) (0.11-0.59) K/uL APTT (21.0-31.0) Seconds Sodium (136-145) mmol/L Creatinine (0.6-1.2) mg/dl Glucose (70-99(Fasting)) mg/dl POC Glucose (70-99) mg/dl Total Creatine Kinase (26-192) U/L Urine pH 8.0 H (4.5-7.5) Ur Specific Strat[place] > 1.045 H (1.000-1.030) Urine Protein Trace H (Negative) Urine Ketones 1+ H (Negative) Urine Blood Trace H (Negative) Urine Nitrite Positive A (Negative) Ur Leukocyte Esterase 1+ H (Negative) Urine WBC (Auto) >30 H (0-5) /hpf Urine RBC (Auto) 10-30 H (0-4) /hpf U Epithel Cells (Auto) >30 H (0-5) /lpf Urine Bacteria (Auto) 4+ H (Negative) Valproic Acid 49 L (50-100) mcg/ml 11/01/21 11/01/21 Range/Units 07:05 07:05 RDW Std Deviation (36.4-46.3) fL Neut # (Auto) (1.4-6.5) K/uL Lymph # (Auto) (1.2-3.4) K/uL Hopkins # (Auto) (0.11-0.59) K/uL APTT 31.6 H (21.0-31.0) Seconds Sodium 132 L (136-145) mmol/L Creatinine 0.40 L (0.6-1.2) mg/dl Glucose 103 H (70-99(Fasting)) mg/dl POC Glucose (70-99) mg/dl Total Creatine Kinase 285 H (26-192) U/L Urine pH (4.5-7.5) Ur Specific Strat[place] (1.000-1.030) Urine Protein (Negative) Urine Ketones (Negative) Urine Blood (Negative) Urine Nitrite (Negative) Ur Leukocyte Esterase (Negative) Urine WBC (Auto) (0-5) /hpf Urine RBC (Auto) (0-4) /hpf U Epithel Cells (Auto) (0-5) /lpf Urine Bacteria (Auto) (Negative) Valproic Acid (50-100) mcg/ml Diagnostic Findings CT abd/pelvis-here is no evidence of solid organ injury in the abdomen or pelvis. There is an acute burst type compression fracture involving the inferior endplate of T12. Fractures not appear to involve the posterior elements and there are no retropulsed fragments. No additional acute fracture is identified. Colonic diverticulosis without CT evidence of acute diverticulitis. CT c spine-here is no evidence of fracture or subluxation involving the cervical spine. . Osteopenia and spondylotic change as above. CXR-Cardiomegaly with no acute cardiopulmonary abnormality. CT head-There is no hemorrhage, mass effect, or evidence of acute territorial ischemia by CT criteria. pelvis xray-no acute bony abnormality is identified. lumber spine CT -There is no evidence of acute fracture or malalignment involving the lumbar spine. Acute burst type fracture of T12 as above. Fracture does not appear to involve the posterior elements and there are no retropulsed fragments. There is a subtle sacral fracture at the level of S2. Chronic lumbar compression deformities as above with evidence of previous vertebroplasty. Thoracic spine CT -Minimally displaced fracture of the T4 superior endplate. Mildly comminuted fracture of the T12 vertebral body is seen. There is minimal retropulsion of approximately 2 mm.
[2021-11-01] MEDS ORDERED: LIDOCAINE 1% LOCAL 20 ML VIAL ONE (12:25)
--- NOTE | 2021-11-01 12:41 | Communication Note ---
Date of Service: November 01, 2021 Spoke to pt's by phone. He is agreeable to proceeding with loop recorder.
--- NOTE | 2021-11-01 13:04 | Electrophysiology Report ---
Date of Service November 01, 2021 Electrophysiology Procedure Electrophysiology Procedure Report The procedure performed: Implantation of patient activated loop recorder Staff regional administrative assistant: Taurus Garcias MD Indication: The patient is a 71-year-old woman with a history of recurrent syncope. Procedure in detail: The patient was informed of the risks benefits and alternatives to the intended procedure. They understood such and wished to proceed. The patient was taken to the electrophysiology suite where the upper chest area was prepped and draped in the usual sterile fashion. An area left lateral to the sternum in the 4th intercostal space was subsequently anesthetized using subcutaneous administration of lidocaine solution. A small incision was made at this site and implantation of the loop recorder was accomplished using a proprietary implantation tool. The small incision was subsequently closed using a single 4 0 Vicryl suture. Steri-Strips and a sterile dressing were then applied. The patient tolerated the procedure well. There were no immediate complications. The device was tested noninvasively prior to conclusion of the procedure. Equipment used: Patient activated loop recorder: Business Teacher [employer]. Model number LNQ22. Serial [facility] [id number] [facility] Electrophysiology codes Implantable Monitors Procedure 1: Implantable Monitors: [id number] Loop Recorder Implant
--- NOTE | 2021-11-01 13:23 | Consultation ---
Date of Consultation November 01, 2021 Assessment & Plan (1) Burst fracture of T12 vertebra: Dr. Carmen has reviewed these images. It is recommended that the patient consider a kyphoplasty for better stabilization/fixation of her acute T12 burst fracture. It appears posterior elements are intact. She has no neurological deficits. She is currently undergoing both neurology and cardiac work-up due to her syncopal episode yesterday. therefore, we will postpone any type of possible surgical intervention until early next week. if shes medically stable for procedure. In the interim, I have ordered a TLSO brace to be worn with any type of sitting in a chair. Does not have to be worn in bed. Current activity is bed to chair only. History of Present Illness Reason for Consultation: T12 burst fracture status post fall Attending Physician: Korin Hartmann MD History of Present Illness This is a 71-year-old female we are asked to see in consultation regarding an acute T12 burst fracture status post fall. Yesterday patient was home alone when she had an unwitnessed syncopal episode. She does not recall events. It is believed that she was on the floor for roughly 8 to 9 hours prior to her coming home from an appointment in [place] when he found her. She was unable to get up on her own. Typically she states she ambulates with a walker. Pain currently is across her lower lumbar spine. She does have a history of prior kyphoplasty in [place] a few years ago. Also has bilateral knee pain which she states is chronic. No radicular pain. Denies any bowel or bladder dysfunction. Patient is currently in the ER. She has had a night monitor/loop monitor placed this afternoon. Neurology is also involved due to her history of seizure disorders/syncopal episode. She is also on Eliquis Allergies Allergy/AdvReac Type Severity Reaction Status Date / Time amoxicillin Allergy Rash Verified 10/31/21 22:41 Home Medications Medication Instructions Recorded Confirmed Type acetaminophen 500 mg tablet 1,000 mg PO Q6H PRN 10/31/21 10/31/21 History (Tylenol Extra Strength) apixaban 5 mg tablet (Eliquis) 5 mg PO BID 10/31/21 10/31/21 History divalproex 500 mg tablet,extended 1,000 mg PO HS 10/31/21 10/31/21 History release 24 hr eszopiclone 2 mg tablet 2 mg PO HS 10/31/21 10/31/21 History levetiracetam 500 mg tablet 250 mg PO HS 10/31/21 10/31/21 History levothyroxine 75 mcg tablet 75 mcg PO DAILY 10/31/21 10/31/21 History (Euthyrox) oxcarbazepine 150 mg tablet 450 mg PO DAILY 10/31/21 10/31/21 History Patient History Medical History Cancer SKIN CANCER Deep vein thrombosis Hallucination Hallucinations (05/29/11) Hearing deficit Hypothyroidism Hypothyroidism On home oxygen therapy [place] OXYGEN AT NIGHT (UNSURE OF LITER) Peripheral neuropathy Psychosis Pulmonary embolism Seizure LAST EPISODE (THIS YEAR/UNSURE OF DATE) ? SEIZURE TYPE>FOLLOWS WITH DR. PHOENIX. OLD RECORDS NOTE EPILEPSY Seizure disorder Sleep apnea NO DEVICE USED NOW (CPAP USED IN PAST) Witnessed seizure-like activity Surgical History History of adenoidectomy History of bilateral tubal ligation History of colonoscopy History of tonsillectomy History of tooth extraction Family History Mother Family hx of colon cancer Social History Smoking Status: Never smoker Second Hand Exposure: Yes; Hx Alcohol Use: No Hx Substance Use: No Preferred Language: Fijian Communication Ability: Effective Search Engine Optimization Consultant Required: No Beliefs That Will Affect Care: None marital status: Current Living Situation: Spouse How many Children do You have: 5 Other Information That Helps Us Care for You: No Feels Safe at Home: Yes Safety Concerns: Feels Safe At This Time Assistive Devices: Denture - Upper, Denture - Lower and Hearing Aid - Bilateral Review of Systems Review of Systems: All systems reviewed & are unremarkable except as noted in HPI & below Physical Exam Physical Exam: She is alert and oriented x3 seen in the ER She is comfortable She is unable to roll over for me so I may examine her thoracolumbar spine Strength is intact bilateral lower extremities Negative logrolling bilaterally. Results & Data ([facility]) Vital Signs (Past 12 Hours) Vital Signs Temp Pulse Resp BP Pulse Ox 11/01/21 12:34 71 20 126/76 97 11/01/21 08:20 36.5 C 79 18 140/88 95 11/01/21 05:00 81 21 119/83 90 11/01/21 03:00 87 18 133/78 93 Diagnostic Findings [place], [place] [phone] CT Scan Report Patient:STEVIE CA Admit Date:10/31/21 MR#:[id number] Address1:[address] Acct ID:[id number] Address2: Date:1950 [facility] Zip:[place] [id number] Age:71 Location:[facility] Sex:F Room/Bed:[place] [address] Att Phy:Korin Hartmann MD Diagnosis:SYNCOPE Linda Phy:Kiki Hay MD Service Date:11/01/21 Fam Phy: Interpreting Phy:Tenzin Hussein [facility] Phy:Kyle Montanez MD Ordering Phy:Kevin Carmen D.O. cc: ~ CT thoracic spine wo con CLINICAL HISTORY: Fall. Lumbosacral fracture. TECHNIQUE: Multidetector row helical CT of the thoracic spine was performed without administration of intravenous contrast. Coronal and sagittal reformations were obtained. Automated dose lowering techniques and/or adjustment according to patient size were utilized for this exam. Comparison: Comparison is made to CTA chest from 11/28/2020 FINDINGS: There is compression deformity at T4 and T12. The T4 deformity appears acute with fracture of the superior endplate. The T12 fracture contains a complex acute component in the inferior endplate superimposed on chronic degenerative changes. There is approximately 2 mm retropulsion of fragments into the spinal canal. Degenerative changes are noted in the visualized spine. Vertebral body alignment is within normal limits. Surrounding soft tissues are unremarkable. IMPRESSION: Minimally displaced fracture of the T4 superior endplate. Mildly comminuted fracture of the T12 vertebral body is seen. There is minimal retropulsion of approximately 2 mm. ACT 112: Negative or not required by law. Electronically signed by: Tenzin Hussein M.D. 11/01/2021 11:37 AM Dictated:11/01/21 1121 Transcribed: 11/01/21 1121 [place], [place] [phone] CT Scan Report Patient:STEVIE CA Admit Date:10/31/21 MR#:[id number] Address1:[address] Acct ID:[id number] Address2: Date:1950 [facility] Zip:[place] [id number] Age:71 Location:ED Sex:F Room/Bed: Att Phy: Diagnosis:FALL Linda Phy:Kiki Hay MD Service Date:10/31/21 [facility] Phy: Interpreting Phy:Janusz Casillas MDAdmit Phy: Ordering Phy:Ramakrishna Fischer MD cc: ~ CT SCAN OF THE LUMBAR SPINE WITH IV CONTRAST CLINICAL HISTORY: Fall. COMPARISON STUDY: Abdominal CT scans performed concurrently on 10/31/2021 and dated 03/06/2019. TECHNIQUE: CT scan of the lumbar spine is performed from the lower thoracic spine to the sacrum following the IV administration of 95 cc of Optiray 320. Images are reviewed in the axial, sagittal, and coronal planes. IV contrast was administered without complication. A dose lowering technique was utilized adhering to the principles of ALARA. CT DOSE: 3351.46 mGy.cm FINDINGS: The skeletal structures are osteopenic. There is no evidence of acute fracture or malalignment involving the lumbar spine. There is an acute burst type compression fracture involving the inferior endplate of T12. Fracture involves both the anterior and posterior cortex, extends to the inferior cortex, and also involves the lateral cortex bilaterally. No retropulsed fragments are identified. There is no evidence of posterior element involvement. There are chronic compression deformities of L1 and L4 with evidence of previous vertebroplasty. Mild superior endplate compression deformities of T12 and L2 are also chronic. There is minimal anterolisthesis at L4-L5. Alignment is otherwise preserved. Anterior and lateral marginal osteophytes are seen throughout. Hyperlordosis is noted. The transverse and spinous processes appear intact. There is no spondylolysis. No lytic or blastic lesion is seen. There is moderate disc space narrowing at L5-S1. Mild disc space narrowing is noted at the remaining lumbar levels. There is no CT evidence of large disc herniation or high-grade central canal stenosis. There is a minimally angulated sacral fracture at the level of S2. This is best seen on sagittal image #46. There is trace surrounding hemorrhage. There is only mild paravertebral edema at T12. There is fatty atrophy of the paraspinous musculature. Diverticulosis is partially visualized in the sigmoid colon. There is no retroperitoneal lymphadenopathy. IMPRESSION: 1. There is no evidence of acute fracture or malalignment involving the lumbar spine. 2. Acute burst type fracture of T12 as above. Fracture does not appear to involve the posterior elements and there are no retropulsed fragments. 3. There is a subtle sacral fracture at the level of S2. 4. Chronic lumbar compression deformities as above with evidence of previous vertebroplasty. ACT 112: Negative or not required by law. Dictated: 10/31/2021 8:17 PM Transcribed: 10/31/2021 8:32 PM Loren [id number] YORDY_Carmelo Electronically signed by: Janusz Casillas M.D. 10/31/2021 9:09 PM Dictated:10/31/212016
[2021-11-01 14:07] LABS: Partial Thromboplastin Ratio 1.4; Partial Thromboplastin Time 37.9 Seconds (21.0-31.0)
--- NOTE | 2021-11-01 16:51 | Electrocardiogram Report ---
Test Reason : Blood Pressure : / mmHG Vent. Rate : 084 BPM Atrial Rate : 084 BPM P-R Int : 186 ms QRS Dur : 072 ms QT Int : 380 ms P-R-T Axes : 047 048 057 degrees QTc Int : 449 ms Poor data quality, interpretation may be adversely affected Normal sinus rhythm Normal ECG When compared with ECG of 11-MAR-2021 09:23, No significant change was found Confirmed by Taurus Garcias ([id number]) on 11/01/2021 4:51:41 PM Referred By: REFERRED SELF Confirmed By:Carlito Garcias
--- NOTE | 2021-11-01 16:57 | Hospitalist Progress Note ---
Date of Service November 01, 2021 Assessment & Plan Plan: Syncope -Unclear etiology -Appreciate Cardiology input, s/p Loop recorder placement today. TTE results noted. -Appreciate Neurology input, plan for 72 hour EEG outpatient T12 thoracic fracture -plan for surgery early next week, in interim, TLSO brace is ordered and patient is to be bed to chair only -Management per orthopedic surgery History of seizure disorder -continue current medications --Will call her pharmacy to verify dose, her recollection of her medications is different from what we have recorded Distant history of PE/DVT -Eliquis held and heparin drip started by admitting provider--> will d/c heparin drip. I think she can safely remain off AC while awaiting surgery. She does not have any recent VTE and with her recent loop recorder implantation and T12 fracture, she is at risk of bleeding at these sites Admission and Anticipated Discharge Date Admission Date: October 31, 2021 Subjective Patient with no complaints currently Denies pain, shortness of breath She is uncertain of her seizure medications: "keppra 1/2 tab twice a day, Trileptal twice a day, and depakote she remembers it as 1000mg night time". Reports she was diagnosed with a DVT and PE 13 years ago and has been on blood thinners since. Denies recent DVT/PE Physical Exam Physical Exam: Pleasant, comfortable, no acute distress Respiratory: breathing comfortably on room air, no wheezing/rhonchi/rales Cardiovascular: regular rate and rhythm, no murmurs/rubs/gallops Gastrointestinal (Abdomen): soft, non tender, non distended Musculoskeletal: No edema, left leg with evidence of old healed ulcer Neurologic: awake, alert, spontaneously moving extremities Results & Data Results & Data ([facility]) Vital Signs (Past 12 Hours) Vital Signs Temp Pulse Resp BP Pulse Ox 11/01/21 12:34 71 20 126/76 97 11/01/21 08:20 36.5 C 79 18 140/88 95 11/01/21 05:00 81 21 119/83 90 Laboratory Results Short CBC 10/31/21 11/01/21 Range/Units 17:35 07:05 WBC 10.04 6.04 (4.8-10.8) K/uL Hgb 14.1 13.0 (12.0-16.0) g/dL Hct 40.4 38.9 (37-47) % Plt Count 268 222 (130-400) K/uL BMP 10/31/21 11/01/21 17:35 07:05 Sodium 133 L 132 L Potassium 3.7 3.6 Chloride 100 101 Carbon Dioxide 26 23 BUN 7 6 Creatinine 0.44 L 0.40 L Glucose 118 H 103 H Calcium 9.4 8.6 Cardiac Enzymes 10/31/21 11/01/21 Range/Units 17:35 07:05 Total Creatine Kinase 487 H 285 H (26-192) U/L Urine 11/01/21 Range/Units 01:00 Urine Color Yellow Urine Appearance Clear (Clear) Urine pH 8.0 H (4.5-7.5) Ur Specific [place] > 1.045 H (1.000-1.030) Urine Protein Trace H (Negative) Urine Glucose (UA) Negative (Negative) Medications Administered Current Inpatient Medications Acetaminophen (Acetaminophen 325 Mg Tab) 650 mg PO Q4H PRN PRN Reason: Pain or Fever Stop: 12/01/21 00:46 Last Admin: 11/01/21 04:27 Dose: 650 mg Documented by: Divalproex Sodium (Divalproex Extended Release 500 Mg Tab) 1,000 mg PO [facility] Stop: 12/01/21 01:34 Last Admin: 11/01/21 03:02 Dose: 1,000 mg Documented by: Eszopiclone (Eszopiclone 1 Mg Tab) 2 mg PO [facility] Stop: 12/01/21 20:59 Heparin Sodium/Dextrose (Heparin Sodium/Dextrose) 25,000 units in 500 mls @ 20 mls/hr IV .Q24H [facility]; Protocol Stop: 11/30/21 23:14 Last Titration: 11/01/21 07:54 Dose: 1,000 units/hr, 20 mls/hr Documented by: Promethazine HCl 12.5 mg/ (Sodium Chloride) 50.5 mls @ 202 mls/hr IV Q6H PRN PRN Reason: Nausea And Vomiting Stop: 12/01/21 00:46 Influenza Virus Vaccine (Flu Vaccine-High Dose (Fluzone-Hd) Pf 65+ 0.7ml Syr) 0.7 ml IM .ONCE ONE Stop: 11/02/21 09:01 Levetiracetam (Levetiracetam 250 Mg Tab) 250 mg PO BID [facility] Stop: 12/01/21 08:59 Last Admin: 11/01/21 08:31 Dose: 250 mg Documented by: Levothyroxine Sodium (Levothyroxine Sodium 75 Mcg Tablet) 75 mcg PO DAILYBB SACHA Stop: 12/01/21 06:29 Last Admin: 11/01/21 06:49 Dose: 75 mcg Documented by: Lidocaine (Lidocaine 5% 1 Patch) 1 patch TD Q24H [facility] Stop: 11/30/21 23:14 Last Admin: 11/01/21 03:01 Dose: Not Given Documented by: Lorazepam (Lorazepam 2 Mg/1 Ml Vial) 1 mg IV Q10M PRN PRN Reason: active seizures Stop: 12/01/21 00:46 Miscellaneous (Remove Lidoderm Patch) 1 ea N/A Q24H [facility] Stop: 12/01/21 11:14 Last Admin: 11/01/21 03:01 Dose: Not Given Documented by: Morphine Sulfate (Morphine Sulfate 4 Mg/Ml 1 Ml Carp\\Vial) 4 mg IV Q4H PRN PRN Reason: Pain Stop: 11/15/21 00:46 Last Admin: 11/01/21 06:45 Dose: 4 mg Documented by: Oxcarbazepine (Oxcarbazepine 150 Mg Tablet) 450 mg PO BID [facility] Stop: 12/01/21 01:44 Last Admin: 11/01/21 08:31 Dose: 450 mg Documented by: Oxycodone HCl (Oxycodone Hcl Ir 5 Mg Tab (Immediate Release)) 5 - 10 mg PO QID PRN PRN Reason: Pain Stop: 11/15/21 00:46
[2021-11-01] MEDS ORDERED: MICONAZOLE NITRATE POWDER 43 GM EXT PRN (18:54)
[2021-11-01] MEDS ORDERED: MELATONIN 3 MG TAB PO PRN (19:17)
[2021-11-01] MEDS ORDERED: ESZOPICLONE 1 MG TAB PO SCH (21:00)
[2021-11-01] MEDS ORDERED: DIVALPROEX EXTENDED RELEASE 500 MG TAB PO SCH (21:00)
--- NOTE | 2021-11-01 21:05 | Communication Note ---
Date of Service: November 01, 2021 Made aware by RN of discrepancy with AED doses taken at home by patient from AED doses outlined by Neurology provider in today's consultation note (".. continue Keppra 250 mg hs.. continue oxcarbazepine 450 mg daily.. continue depakote 1000 mg hs") Request Neurology provider to clarify in a.m.
[2021-11-01 23:27] LABS: Partial Thromboplastin Ratio 1.1; Partial Thromboplastin Time 29.3 Seconds (21.0-31.0)
[2021-11-02] MEDS: LEVOTHYROXINE SODIUM 75 MCG TABLET PO SCH (05:58)
--- NOTE | 2021-11-02 07:30 | Cardiology Progress Note ---
Date of Service November 02, 2021 Assessment & Plan (1) Syncope: (2) SVT (supraventricular tachycardia): (3) Seizure disorder: Plan: Episodes of syncope without warning. On going x1+ years now. Did have some mild orthostasis at PCP office. Differentials of possibly orthostatic hypotension, vasovagal syncope, cardiac arrhythmias, vs breakthrough seizures. Multiple episodes of short salvos of SVT on out patient zio- non triggered, no syncope at this time. Inpatient echo stable with improved LVEF Linq recorder implanted yesterday. 1. Recommend continuing to watch telemetry 2. Will allow for a slightly higher blood pressure in this acute setting. Avoid antihypertensive agents to minimize the risk of orthostasis 4. Will arrange for Linq reports to transmit to our EP provider, Dr. Cerrato- as she will be establishing with her in November. 5. Agree with Neurology follow-up evaluation for seizures. (4) Burst fracture of T12 vertebra: Plan: Defer to primary team and ortho regarding fracture management. Admission and Anticipated Discharge Date Admission Date: October 31, 2021 Supervising Physician Co-Signing Physician Notes Cardiology Attending: I personally performed a history and physical examination. S: Denies cardiac complaint Exam: Lung: CTAB CV: reg, no murmurs Impression Recurrent episodes of loss of postural tone / consciousness -History atypical for cardiac syncope. -Loop recorder implaned. -Eliquis (on for h/o VTE) on hold for possible kyphoplasty of T12 burst fracture. Subjective 71 year old female. Presented to [facility] due to concerns of unexplained syncope. Hx of NICM, Epilepsy, FORREST, and DVT/PE on Eliquis. Yesterday patient under went loop recorder insertion by Dr. Garcias for termite helper cardiac monitoring. Seen by neurology who recommended 72 hour EEG as outpatient. Echocardiogram showed return to normal LVEF of 60-65% with normal wall motion. No significant valvular abnormalities. Pulm artery systolic pressure 38 mm Hg (upper limit of normal to mildly elevated). Seen by ortho surg due to her T12 burst fracture. Upon entrance into the room patient was resting in bed comfortably without any acute concerns. Denies any acute concerns. No chest pain, shortness of breath, or further episodes of syncope. Tele: SR 70-80s, no arrhythmias over night. Review of Systems Review of Systems: All systems reviewed & are unremarkable except as noted in HPI & below Physical Exam Physical Exam: General: No acute distress. A+Ox3. HEENT: Normocephalic. Atraumatic. Conjunctiva and sclera clear. NECK: No carotid bruits. No JVD. Carotid upstrokes are brisk. Heart: RRR. S1 and S2 noted. No murmur. Left chest loop insertion site c/d/i Lungs: Clear to auscultation. No wheezes, rhonchi, rales. Abdomen: Normal bowel sounds. Soft. Nontender. Obese. Extremities: Trace BL nonpitting lower extremity lymphedema. No clubbing or cyanosis. +BL varicosities Pulses: radial=2/4, posterior tibial=2/4, dorsalis pedis = 2/4. NEURO: No focal deficits. PSYCH: Normal. Results & Data ([facility]) Vital Signs (Past 12 Hours) Vital Signs Temp Pulse Pulse Resp BP BP Pulse Ox 11/02/21 04:00 36.7 C 80 18 136/83 95 11/02/21 00:47 11/01/21 23:31 36.9 C 83 18 115/69 92 11/01/21 22:18 79 11/01/21 19:33 37.0 C 82 18 147/81 H 92 Pulse Ox 11/02/21 04:00 11/02/21 00:47 92 11/01/21 23:31 11/01/21 22:18 11/01/21 19:33 Laboratory Results Coagulation 11/01/21 11/01/21 Range/Units 13:51 23:00 APTT 37.9 H 29.3 (21.0-31.0) Seconds CBC 11/02/21 Range/Units 06:54 WBC 5.53 (4.8-10.8) K/uL RBC 4.31 (4.2-5.4) M/uL Hgb 13.3 (12.0-16.0) g/dL Hct 39.8 (37-47) % Plt Count 214 (130-400) K/uL Comprehensive Metabolic Panel 11/02/21 Range/Units 06:54 Sodium 132 L (136-145) mmol/L Potassium TNP Chloride 99 (98-107) mmol/L Carbon Dioxide 24 (21-32) mmol/L BUN 6 (6-23) mg/dl Creatinine 0.41 L (0.6-1.2) mg/dl Glucose 88 (70-99(Fasting)) mg/dl Calcium 8.8 (8.5-10.1) mg/dl Repeat K- pending Intake and Output 11/01/21 11/02/21 11/02/21 22:59 06:59 14:59 Intake Total 1457.933 / 1772.966 200 / 1772.966 Output Total 250 / 500 250 / 500 Balance 1207.933 / 1272.966 -50 / 1272.966 Intake: IV 1187.933 / 1302.966 Heparin Sodium/Dextrose 25,000 187.933 / 302.966 units In 500 ml @ 1,150 UNITS/ HR 23 mls/hr IV .[id number] [facility] Rx #:[id number] Lactated Ringer's 1,000 ml @ 60 1000 / 1000 mls/hr IV .[id number] ONE Rx#: [id number] Oral 270 / 470 200 / 470 Output: Urine Amount (Catheter) 250 / 500 250 / 500 External 250 / 500 250 / 500 Other: # Urine Diapers 1 Weight 103.2 kg Weight Measurement Method Built in [facility]
[2021-11-02 07:33] LABS: Hematocrit (blood only) 39.8 % (37-47); Hemoglobin 13.3 g/dL (12.0-16.0); Mean Corpuscular Hemoglobin 30.9 pg (25-34); Mean Corpuscular Hgb Conc 33.4 g/dL (32-36); Mean Corpuscular Volume 92.3 fL (80-100); Mean Platelet Volume 10.2 fL (7.4-10.4); Platelet Count 214 K/uL (130-400); RDW Coefficient of Variation 13.4 % (11.5-14.5); RDW Standard Deviation 45.5 fL (36.4-46.3); Red Blood Count 4.31 M/uL (4.2-5.4); White Blood Count 5.53 K/uL (4.8-10.8)
[2021-11-02] MEDS ORDERED: cefTRIAXone SODIUM 2,000 MG in DEXTROSE 5% 50 ML IV SCH (08:00)
[2021-11-02 08:17] LABS: Anion Gap 9 (3-11); BUN Creatinine Ratio 14.6 (10-20); Blood Urea Nitrogen 6 mg/dl (6-23); Calcium 8.8 mg/dl (8.5-10.1); Carbon Dioxide 24 mmol/L (21-32); Chloride 99 mmol/L (98-107); Creatinine Clr Calc Pharmacy 149.4 ml/min; Est GFR (African American) 121.3 ml/min; Est GFR (Non-African American) 104.7 ml/min; Glucose 88 mg/dl (70-99(Fasting)); Sodium 132 mmol/L (136-145)
[2021-11-02] MEDS ORDERED: OXcarbazepine 150 MG TABLET PO SCH (09:00)
[2021-11-02] MEDS ORDERED: Flu Vaccine-High Dose (Fluzone-HD) PF 65+ 0.7mL SYR IM ONE (09:00)
--- NOTE | 2021-11-02 09:14 | Orthopedic Progress Note ---
Date of Service November 02, 2021 Assessment & Plan (1) Burst fracture of T12 vertebra: Plan: I discussion today with this patient regarding her T12 burst fracture. Pending medical clearance anticoagulation numbers we may consider T12 kyphoplasty. She is unfortunately struggling quite a bit with her sacral fracture. This is nonoperative in nature and will just take time to heal. Admission and Anticipated Discharge Date Admission Date: November 02, 2021 Subjective Patient complaining of low back pain and sacral pain no leg pain or numbness. Physical Exam Physical Exam: Patient does appear comfortable in bed. She is neurologically intact. Results & Data ([facility]) Vital Signs (Past 12 Hours) Vital Signs Temp Pulse Pulse Pulse Resp BP Pulse Ox 11/02/21 08:00 36.5 C 77 16 132/87 92 11/02/21 04:00 36.7 C 80 18 136/83 95 11/02/21 00:47 11/01/21 23:31 36.9 C 83 18 115/69 92 11/01/21 22:18 79 Pulse Ox 11/02/21 08:00 11/02/21 04:00 11/02/21 00:47 92 11/01/21 23:31 11/01/21 22:18
[2021-11-02] MEDS ORDERED: MoRPHine SULFATE 2 MG/ML CARP IV PRN (10:04)
[2021-11-02] MEDS: HEPARIN SOD 5,000 UNIT/0.5 ML VIAL SQ SCH ×2 (14:10→21:33)
[2021-11-02] MEDS: oxyCODONE HCL IR 5 MG TAB (IMMEDIATE RELEASE) PO PRN ×2 (14:10→21:41)
--- NOTE | 2021-11-02 18:46 | Hospitalist Progress Note ---
Date of Service November 02, 2021 Assessment & Plan (1) Syncope: Plan: Syncope -Unclear etiology -Appreciate Cardiology input, s/p Loop recorder placement 11/01. TTE results noted. -Appreciate Neurology input, plan for 72 hour EEG as an outpatient T12 thoracic fracture -plan for surgery early next week, in interim, TLSO brace is ordered and patient is to be bed to chair only -Management per orthopedic surgery -will ask Cardiology for risk stratification/clearance. 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 Admission and Anticipated Discharge Date Admission Date: November 02, 2021 Subjective Patient reports pain is uncontrolled, oxycodone helps but in between doses she is again in pain. Physical Exam Physical Exam: mild-mod discomfort due to pain, non toxic appear, laying in bed Respiratory: breathing comfortably on room air, no wheezing/rhonchi/rales Cardiovascular: regular rate and rhythm, no murmurs/rubs/gallops Gastrointestinal (Abdomen): soft, non tender, non distended Musculoskeletal: no edema Neurologic: awake, alert, spontaneously moving extremities Results & Data Results & Data ([facility]) Vital Signs (Past 12 Hours) Vital Signs Temp Pulse Pulse Resp BP BP Pulse Ox 11/02/21 15:21 37.1 C 77 20 117/75 93 11/02/21 14:56 82 11/02/21 10:50 36.6 C 77 14 118/74 94 11/02/21 08:00 36.5 C 76 77 16 132/87 92 Laboratory Results Short CBC 11/02/21 Range/Units 06:54 WBC 5.53 (4.8-10.8) K/uL Hgb 13.3 (12.0-16.0) g/dL Hct 39.8 (37-47) % Plt Count 214 (130-400) K/uL BMP 11/02/21 11/02/21 06:54 08:37 Sodium 132 L Potassium TNP 3.8 Chloride 99 Carbon Dioxide 24 BUN 6 Creatinine 0.41 L Glucose 88 Calcium 8.8 Medications Administered Current Inpatient Medications Acetaminophen (Acetaminophen 325 Mg Tab) 650 mg PO TID [facility] Stop: 12/02/21 20:59 Divalproex Sodium (Divalproex Extended Release 500 Mg Tab) 1,000 mg PO HS [facility] Stop: 12/01/21 01:34 Last Admin: 11/01/21 22:27 Dose: 1,000 mg Documented by: Gabapentin (Gabapentin 100 Mg Cap) 100 mg PO BID [facility] Stop: 12/02/21 20:59 Heparin Sodium (Porcine) (Heparin Sod 5,000 Unit/0.5 Ml Vial) 5,000 units SQ Q8 [facility] Stop: 12/02/21 13:59 Last Admin: 11/02/21 14:10 Dose: 5,000 units Documented by: Promethazine HCl 12.5 mg/ (Sodium Chloride) 50.5 mls @ 202 mls/hr IV Q6H PRN PRN Reason: Nausea And Vomiting Stop: 12/01/21 00:46 Ceftriaxone Sodium 2,000 mg/ (Dextrose) 70 mls @ 100 mls/hr IV Q24H [facility]; Protocol Stop: 11/08/21 08:59 Levetiracetam (Levetiracetam 250 Mg Tab) 250 mg PO BID [facility] Stop: 12/02/21 20:59 Levothyroxine Sodium (Levothyroxine Sodium 75 Mcg Tablet) 75 mcg PO DAILYBB [facility] Stop: 12/01/21 06:29 Last Admin: 11/02/21 05:58 Dose: 75 mcg Documented by: Lidocaine (Lidocaine 5% 1 Patch) 1 patch TD Q24H [facility] Stop: 11/30/21 23:14 Last Admin: 11/01/21 22:29 Dose: Not Given Documented by: Lorazepam (Lorazepam 2 Mg/1 Ml Vial) 1 mg IV Q10M PRN PRN Reason: active seizures Stop: 12/01/21 00:46 Melatonin (Melatonin 3 Mg Tab) 3 mg PO HS PRN PRN Reason: Sleep Stop: 12/01/21 19:16 Miconazole Nitrate (Miconazole Nitrate Powder 43 Gm) 1 appln EXT PRN PRN PRN Reason: Affected Skin Folds Stop: 12/01/21 18:53 Last Admin: 11/02/21 06:30 Dose: 1 appln Documented by: Miscellaneous (Remove Lidoderm Patch) 1 ea N/A Q24H [facility] Stop: 12/01/21 11:14 Last Admin: 11/02/21 10:36 Dose: Not Given Documented by: Morphine Sulfate (Morphine Sulfate 2 Mg/Ml Carp) 2 mg IV Q4H PRN PRN Reason: Pain Stop: 11/15/21 00:46 Last Admin: 11/02/21 10:35 Dose: 2 mg Documented by: Oxcarbazepine (Oxcarbazepine 150 Mg Tablet) 450 mg PO BID [facility] Stop: 12/02/21 20:59 Oxycodone HCl (Oxycodone Hcl Ir 5 Mg Tab (Immediate Release)) 5 - 10 mg PO Q4 PRN PRN Reason: Pain Stop: 11/15/21 00:46 Last Admin: 11/02/21 14:10 Dose: 10 mg Documented by:
[2021-11-02] MEDS: OXcarbazepine 150 MG TABLET PO SCH (21:34)
[2021-11-02] MEDS: DIVALPROEX EXTENDED RELEASE 500 MG TAB PO SCH (21:35)
[2021-11-02] MEDS: GABAPENTIN 100 MG CAP PO SCH (21:35)
[2021-11-02] MEDS: levETIRAcetam 250 MG TAB PO SCH (21:35)
[2021-11-02] MEDS: ACETAMINOPHEN 325 MG TAB PO SCH (21:36)
[2021-11-02] MEDS: LIDOCAINE 5% 1 PATCH TD SCH (22:43)
[2021-11-03] MEDS: LEVOTHYROXINE SODIUM 75 MCG TABLET PO SCH (05:59)
[2021-11-03] MEDS: HEPARIN SOD 5,000 UNIT/0.5 ML VIAL SQ SCH ×3 (06:00→21:09)
[2021-11-03] MEDS: ACETAMINOPHEN 325 MG TAB PO SCH ×3 (08:03→21:08)
[2021-11-03] MEDS: GABAPENTIN 100 MG CAP PO SCH ×2 (08:04→21:07)
[2021-11-03] MEDS: levETIRAcetam 250 MG TAB PO SCH ×2 (08:04→21:08)
[2021-11-03] MEDS: OXcarbazepine 150 MG TABLET PO SCH ×2 (08:04→21:06)
[2021-11-03] MEDS: cefTRIAXone SODIUM 2,000 MG in DEXTROSE 5% 50 ML IV SCH (08:16)
[2021-11-03] MEDS: oxyCODONE HCL IR 5 MG TAB (IMMEDIATE RELEASE) PO PRN ×2 (08:16→21:06)
--- NOTE | 2021-11-03 10:06 | Orthopedic Progress Note ---
Date of Service November 03, 2021 Assessment & Plan (1) Burst fracture of T12 vertebra: Plan: Discussion today with this patient regarding her fracture. She is comfortable with proceeding with the kyphoplasty. We will schedule for kyphoplasty of T12 on Friday. Admission and Anticipated Discharge Date Admission Date: November 02, 2021 Subjective Patient continues to have significant back pain with any motion. She denies any leg pain numbness or tingling. Physical Exam Physical Exam: Patient has good strength testing her extremities. She is comfortable in a supine position. Results & Data ([facility]) Vital Signs (Past 12 Hours) Vital Signs Temp Pulse Pulse Resp BP Pulse Ox 11/03/21 07:33 37 C 61 19 117/77 95 11/03/21 03:04 36.8 C 64 20 118/65 92 11/03/21 01:22 74 11/02/21 23:35 36.6 C 76 16 128/72 99
--- NOTE | 2021-11-03 10:10 | Hospitalist Progress Note ---
Date of Service November 03, 2021 Assessment & Plan (1) Syncope: Plan: Syncope -Unclear etiology -Appreciate Cardiology input, s/p Loop recorder placement 11/01. TTE results noted. -Appreciate Neurology input, plan for 72 hour EEG as an outpatient T12 thoracic fracture -plan for surgery on Friday, in interim, TLSO brace is ordered and patient is to be bed to chair only -Management per orthopedic surgery -will ask Cardiology for risk stratification/clearance. -multimodal pain control: tylenol 650mg TID, gabapentin 100mg BID, lidocaine patch, oxycodone 5-10mg Q 4PRN for mod-severe pain History of seizure disorder -verified medication doses with Neurology, she is on trileptal 450mg BID, Keppra loading dose (now is 250mg BID), depakote ER 1000mg daily Distant history of PE/DVT -distant history of VTE, holding Eliquis in anticipation of surgery. Will check bilateral lower extremity u/s Admission and Anticipated Discharge Date Admission Date: November 02, 2021 Subjective Patient reports pain is relieved with oxycodone. Mildly improved "I don't want to move much" because of the pain Requesting repeat imaging of her legs, "It's been years" for evaluation of her prior DVT Physical Exam Physical Exam: No acute distress, pleasant and cooperative Respiratory: breathing comfortably on room air, no wheezing/rhonchi/rales Cardiovascular: regular rate and rhythm, no murmurs/rubs/gallops Gastrointestinal (Abdomen): soft, non tender, non distended Musculoskeletal: no edema Skin: left leg healed ulcer, chronic venous stasis skin changes Neurologic: awake, alert, spontaneously moving extremities Results & Data Results & Data ([facility]) Vital Signs (Past 12 Hours) Vital Signs Temp Pulse Pulse Resp BP Pulse Ox 11/03/21 07:33 37 C 61 19 117/77 95 11/03/21 03:04 36.8 C 64 20 118/65 92 11/03/21 01:22 74 11/02/21 23:35 36.6 C 76 16 128/72 99 Medications Administered Current Inpatient Medications Acetaminophen (Acetaminophen 325 Mg Tab) 650 mg PO TID [facility] Stop: 12/02/21 20:59 Last Admin: 11/03/21 08:03 Dose: 650 mg Documented by: Divalproex Sodium (Divalproex Extended Release 500 Mg Tab) 1,000 mg PO HS [facility] Stop: 12/01/21 01:34 Last Admin: 11/02/21 21:35 Dose: 1,000 mg Documented by: Gabapentin (Gabapentin 100 Mg Cap) 100 mg PO BID [facility] Stop: 12/02/21 20:59 Last Admin: 11/03/21 08:04 Dose: 100 mg Documented by: Heparin Sodium (Porcine) (Heparin Sod 5,000 Unit/0.5 Ml Vial) 5,000 units SQ Q8 [facility] Stop: 12/02/21 13:59 Last Admin: 11/03/21 06:00 Dose: 5,000 units Documented by: Promethazine HCl 12.5 mg/ (Sodium Chloride) 50.5 mls @ 202 mls/hr IV Q6H PRN PRN Reason: Nausea And Vomiting Stop: 12/01/21 00:46 Ceftriaxone Sodium 2,000 mg/ (Dextrose) 70 mls @ 100 mls/hr IV Q24H [facility]; Protocol Stop: 11/08/21 08:59 Last Infusion: 11/03/21 09:06 Dose: Infused Documented by: Levetiracetam (Levetiracetam 250 Mg Tab) 250 mg PO BID [facility] Stop: 12/02/21 20:59 Last Admin: 11/03/21 08:04 Dose: 250 mg Documented by: Levothyroxine Sodium (Levothyroxine Sodium 75 Mcg Tablet) 75 mcg PO DAILYBB [facility] Stop: 12/01/21 06:29 Last Admin: 11/03/21 05:59 Dose: 75 mcg Documented by: Lidocaine (Lidocaine 5% 1 Patch) 1 patch TD Q24H [facility] Stop: 11/30/21 23:14 Last Admin: 11/02/21 22:43 Dose: Not Given Documented by: Lorazepam (Lorazepam 2 Mg/1 Ml Vial) 1 mg IV Q10M PRN PRN Reason: active seizures Stop: 12/01/21 00:46 Melatonin (Melatonin 3 Mg Tab) 3 mg PO HS PRN PRN Reason: Sleep Stop: 12/01/21 19:16 Miconazole Nitrate (Miconazole Nitrate Powder 43 Gm) 1 appln EXT PRN PRN PRN Reason: Affected Skin Folds Stop: 12/01/21 18:53 Last Admin: 11/02/21 06:30 Dose: 1 appln Documented by: Miscellaneous (Remove Lidoderm Patch) 1 ea N/A Q24H [facility] Stop: 12/01/21 11:14 Last Admin: 11/03/21 09:02 Dose: Not Given Documented by: Morphine Sulfate (Morphine Sulfate 2 Mg/Ml Carp) 2 mg IV Q4H PRN PRN Reason: Pain Stop: 11/15/21 00:46 Last Admin: 11/02/21 10:35 Dose: 2 mg Documented by: Oxcarbazepine (Oxcarbazepine 150 Mg Tablet) 450 mg PO BID [facility] Stop: 12/02/21 20:59 Last Admin: 11/03/21 08:04 Dose: 450 mg Documented by: Oxycodone HCl (Oxycodone Hcl Ir 5 Mg Tab (Immediate Release)) 5 - 10 mg PO Q4 PRN PRN Reason: Pain Stop: 11/15/21 00:46 Last Admin: 11/03/21 08:16 Dose: 10 mg Documented by: Polyethylene Glycol (Polyethylene (Miralax) 17 Gm Pack) 17 gm PO DAILY [facility] Stop: 12/04/21 08:59 Sennosides (Senna 8.6 Mg Tab) 8.6 mg PO QAM [facility] Stop: 12/04/21 08:59
[2021-11-03 13:59] LABS: Appearance Urine Clear (Clear); Bacteria Urine Automated Negative (Negative); Bilirubin Urine Negative (Negative); Blood Urine Negative (Negative); Color Urine Yellow; Epithelial Cell Urine Auto >30 /lpf (0-5); Glucose Urine UA Negative (Negative); Ketones Urine 1+ (Negative); Leukocyte Esterase Urine 1+ (Negative); Nitrite Urine Negative (Negative); Protein Urine Negative (Negative); RBC Urine Automated 0-4 /hpf (0-4); Urobilinogen Urine Negative (Negative); pH Urine 6.5 (4.5-7.5)
--- NOTE | 2021-11-03 14:23 | Ultrasound Report ---
US venous doppler LE BI CLINICAL HISTORY: Bilateral leg pain and swelling. Previous history of DVT. COMPARISON: 01/04/2009 TECHNIQUE: Bilateral lower extremity real-time compression venous ultrasound with Color Doppler imagi ng. Utilizing real-time ultrasonic imaging multiple real time high-resolution ultrasonic images with comp ression and noncompression maneuvers of the deep venous system in addition to color doppler imaging w ere performed from the common femoral vein through the proximal calf veins. FINDINGS: Currently there is normal compressibility of the deep venous system from the common femoral vein thro ugh the proximal calf veins. No current evidence of acute thrombosis is identified. Impression: No evidence of deep venous thrombus. ACT 112: Negative or not required by law. Electronically signed by: Edgar Last M.D. 11/03/2021 2:21 PM
[2021-11-03] MEDS: DIVALPROEX EXTENDED RELEASE 500 MG TAB PO SCH (21:08)
[2021-11-03] MEDS: LIDOCAINE 5% 1 PATCH TD SCH (22:55)
[2021-11-04] MEDS: HEPARIN SOD 5,000 UNIT/0.5 ML VIAL SQ SCH ×2 (06:22→15:15)
[2021-11-04] MEDS: LEVOTHYROXINE SODIUM 75 MCG TABLET PO SCH (06:23)
[2021-11-04] MEDS: OXcarbazepine 150 MG TABLET PO SCH ×2 (07:56→20:05)
[2021-11-04] MEDS: levETIRAcetam 250 MG TAB PO SCH ×2 (07:56→20:31)
[2021-11-04] MEDS: ACETAMINOPHEN 325 MG TAB PO SCH ×3 (07:56→20:04)
[2021-11-04] MEDS: GABAPENTIN 100 MG CAP PO SCH ×2 (07:56→20:04)
[2021-11-04] MEDS: POLYETHYLENE (MIRALAX) 17 GM PACK PO SCH (07:57)
[2021-11-04] MEDS: SENNA 8.6 MG TAB PO SCH (07:57)
[2021-11-04] MEDS: cefTRIAXone SODIUM 2,000 MG in DEXTROSE 5% 50 ML IV SCH (08:31)
[2021-11-04] MEDS: SACCHAROMYCES BOULARDII 250 MG CAP PO SCH (08:31)
[2021-11-04] MEDS: CYCLOBENZAPRINE HCL 5 MG TAB PO PRN ×2 (08:31→20:04)
[2021-11-04 08:46] LABS: Hematocrit (blood only) 39.5 % (37-47); Hemoglobin 13.2 g/dL (12.0-16.0); Mean Corpuscular Hgb Conc 33.4 g/dL (32-36); Mean Corpuscular Volume 92.7 fL (80-100); Mean Platelet Volume 10.1 fL (7.4-10.4); Platelet Count 231 K/uL (130-400); RDW Coefficient of Variation 13.5 % (11.5-14.5); RDW Standard Deviation 45.8 fL (36.4-46.3); Red Blood Count 4.26 M/uL (4.2-5.4); White Blood Count 4.32 K/uL (4.8-10.8)
[2021-11-04 09:07] LABS: BUN Creatinine Ratio 24.3 (10-20); Calcium 8.9 mg/dl (8.5-10.1); Creatinine Clr Calc Pharmacy 165.3 ml/min; Est GFR (African American) 125.5 ml/min; Est GFR (Non-African American) 108.3 ml/min; Potassium 4.2 mmol/L (3.5-5.1)
[2021-11-04] MEDS: oxyCODONE HCL IR 5 MG TAB (IMMEDIATE RELEASE) PO PRN ×2 (12:07→21:14)
--- NOTE | 2021-11-04 13:09 | Hospitalist Progress Note ---
Date of Service November 04, 2021 Assessment & Plan (1) Syncope: Plan: Syncope -Appreciate Cardiology input, s/p Loop recorder placement 11/01. TTE results unremarkable. No significant events noted on telemetry since being here -Appreciate Neurology input, plan for 72 hour EEG as an outpatient T12 thoracic fracture -plan for surgery on Friday, in interim, TLSO brace is ordered and patient is to be bed to chair only -Management per orthopedic surgery -multimodal pain control: tylenol 650mg TID, gabapentin 100mg BID, lidocaine patch, oxycodone 5-10mg Q 4PRN for mod-severe pain -Patient's revised cardiac risk index (RCRI) is 0 which represents a 4% perioperative cardiac complication. She is overall low risk for surgery. She has been medically optimized. She may proceed to surgery with no further cardiac workup. History of seizure disorder -verified medication doses with Neurology, she is on trileptal 450mg BID, Keppra loading dose (now is 250mg BID), depakote ER 1000mg daily--continued here Distant history of PE/DVT -distant history of VTE, holding Eliquis in anticipation of surgery. lower extremity u/s is negative for DVT Admission and Anticipated Discharge Date Admission Date: November 02, 2021 Subjective Overall feels well, back pain is controlled but now reports right leg soreness Otherwise no other complaints Telemetry reviewed-- no events noted Physical Exam Physical Exam: Patient recently just received her oxycodone, Appears drowsy but no acute distress Respiratory: Breathing comfortably on room air, no wheezing/rhonchi/rales Cardiovascular: Regular rate and rhythm, no murmurs/rubs/gallops Gastrointestinal (Abdomen): soft, non tender Musculoskeletal: No edema Neurologic: drowsy (just received pain medications) but arousable, answers questions appropriately Results & Data Results & Data ([facility]) Vital Signs (Past 12 Hours) Vital Signs Temp Pulse Pulse Resp BP BP Pulse Ox 11/04/21 12:00 36.8 C 81 18 185/75 H 94 11/04/21 07:52 36.7 C 74 18 120/73 95 11/04/21 02:18 37.0 C 68 18 118/75 93 Laboratory Results Short CBC 11/04/21 Range/Units 07:56 WBC 4.32 L (4.8-10.8) K/uL Hgb 13.2 (12.0-16.0) g/dL Hct 39.5 (37-47) % Plt Count 231 (130-400) K/uL BMP 11/04/21 07:56 Sodium 133 L Potassium 4.2 Chloride 99 Carbon Dioxide 27 BUN 9 Creatinine 0.37 L Glucose 88 Calcium 8.9 Urine 11/03/21 Range/Units 13:50 Urine Color Yellow Urine Appearance Clear (Clear) Urine pH 6.5 (4.5-7.5) Ur Specific [place] 1.020 (1.000-1.030) Urine Protein Negative (Negative) Urine Glucose (UA) Negative (Negative) Medications Administered Current Inpatient Medications Acetaminophen (Acetaminophen 325 Mg Tab) 650 mg PO TID [facility] Stop: 12/02/21 20:59 Last Admin: 11/04/21 07:56 Dose: 650 mg Documented by: Cyclobenzaprine HCl (Cyclobenzaprine Hcl 5 Mg Tab) 5 mg PO TID PRN PRN Reason: spasm Stop: 12/04/21 08:59 Last Admin: 11/04/21 08:31 Dose: 5 mg Documented by: Divalproex Sodium (Divalproex Extended Release 500 Mg Tab) 1,000 mg PO HS [facility] Stop: 12/01/21 01:34 Last Admin: 11/03/21 21:08 Dose: 1,000 mg Documented by: Gabapentin (Gabapentin 100 Mg Cap) 100 mg PO BID [facility] Stop: 12/02/21 20:59 Last Admin: 11/04/21 07:56 Dose: 100 mg Documented by: Heparin Sodium (Porcine) (Heparin Sod 5,000 Unit/0.5 Ml Vial) 5,000 units SQ Q8 [facility] Stop: 12/02/21 13:59 Last Admin: 11/04/21 06:22 Dose: 5,000 units Documented by: Promethazine HCl 12.5 mg/ (Sodium Chloride) 50.5 mls @ 202 mls/hr IV Q6H PRN PRN Reason: Nausea And Vomiting Stop: 12/01/21 00:46 Ceftriaxone Sodium 2,000 mg/ (Dextrose) 70 mls @ 100 mls/hr IV Q24H [facility]; Protocol Stop: 11/08/21 08:59 Last Infusion: 11/04/21 08:35 Dose: 0 mls/hr Documented by: Levetiracetam (Levetiracetam 250 Mg Tab) 250 mg PO BID [facility] Stop: 12/02/21 20:59 Last Admin: 11/04/21 07:56 Dose: 250 mg Documented by: Levothyroxine Sodium (Levothyroxine Sodium 75 Mcg Tablet) 75 mcg PO DAILYBB [facility] Stop: 12/01/21 06:29 Last Admin: 11/04/21 06:23 Dose: 75 mcg Documented by: Lidocaine (Lidocaine 5% 1 Patch) 1 patch TD Q24H [facility] Stop: 11/30/21 23:14 Last Admin: 11/03/21 22:55 Dose: Not Given Documented by: Lorazepam (Lorazepam 2 Mg/1 Ml Vial) 1 mg IV Q10M PRN PRN Reason: active seizures Stop: 12/01/21 00:46 Melatonin (Melatonin 3 Mg Tab) 3 mg PO HS PRN PRN Reason: Sleep Stop: 12/01/21 19:16 Miconazole Nitrate (Miconazole Nitrate Powder 43 Gm) 1 appln EXT PRN PRN PRN Reason: Affected Skin Folds Stop: 12/01/21 18:53 Last Admin: 11/02/21 06:30 Dose: 1 appln Documented by: Miscellaneous (Remove Lidoderm Patch) 1 ea N/A Q24H [facility] Stop: 12/01/21 11:14 Last Admin: 11/04/21 08:50 Dose: Not Given Documented by: Morphine Sulfate (Morphine Sulfate 2 Mg/Ml Carp) 2 mg IV Q4H PRN PRN Reason: Pain Stop: 11/15/21 00:46 Last Admin: 11/02/21 10:35 Dose: 2 mg Documented by: Oxcarbazepine (Oxcarbazepine 150 Mg Tablet) 450 mg PO BID [facility] Stop: 12/02/21 20:59 Last Admin: 11/04/21 07:56 Dose: 450 mg Documented by: Oxycodone HCl (Oxycodone Hcl Ir 5 Mg Tab (Immediate Release)) 5 - 10 mg PO Q4 PRN PRN Reason: Pain Stop: 11/15/21 00:46 Last Admin: 11/04/21 12:07 Dose: 10 mg Documented by: Polyethylene Glycol (Polyethylene (Miralax) 17 Gm Pack) 17 gm PO DAILY [facility] Stop: 12/04/21 08:59 Last Admin: 03/27/22 07:57 Dose: 17 gm Documented by: Saccharomyces Boulardii (Saccharomyces Boulardii 250 Mg Cap) 250 mg PO DAILY [facility] Stop: 12/04/21 08:59 Last Admin: 11/04/21 08:31 Dose: 250 mg Documented by: Sennosides (Senna 8.6 Mg Tab) 8.6 mg PO QAM [facility] Stop: 12/04/21 08:59 Last Admin: 11/04/21 07:57 Dose: 8.6 mg Documented by:
[2021-11-04] MEDS: DIVALPROEX EXTENDED RELEASE 500 MG TAB PO SCH (20:05)
[2021-11-04] MEDS ORDERED: Nursing to Pharmacy Communication SCH (22:00)
[2021-11-04] MEDS: LIDOCAINE 5% 1 PATCH TD SCH (22:18)
[2021-11-05] MEDS: LEVOTHYROXINE SODIUM 75 MCG TABLET PO SCH (06:14)
[2021-11-05 06:24] LABS: Hematocrit (blood only) 40.6 % (37-47); Hemoglobin 13.8 g/dL (12.0-16.0); Mean Corpuscular Hemoglobin 31.6 pg (25-34); Mean Corpuscular Volume 92.9 fL (80-100); Mean Platelet Volume 9.8 fL (7.4-10.4); Platelet Count 245 K/uL (130-400); RDW Coefficient of Variation 13.4 % (11.5-14.5); RDW Standard Deviation 45.7 fL (36.4-46.3); Red Blood Count 4.37 M/uL (4.2-5.4); White Blood Count 3.58 K/uL (4.8-10.8)
[2021-11-05 07:03] LABS: Calcium 9.1 mg/dl (8.5-10.1); Creatinine Clr Calc Pharmacy 127.9 ml/min; Est GFR (African American) 117.7 ml/min; Est GFR (Non-African American) 101.5 ml/min; Potassium 4.5 mmol/L (3.5-5.1)
[2021-11-05 07:24] LABS: Prothrombin Time 10.9 Seconds (9.0-12.0)
[2021-11-05] MEDS: GABAPENTIN 100 MG CAP PO SCH ×2 (09:02→20:14)
[2021-11-05] MEDS: OXcarbazepine 150 MG TABLET PO SCH ×2 (09:02→20:15)
[2021-11-05] MEDS: SACCHAROMYCES BOULARDII 250 MG CAP PO SCH (09:02)
[2021-11-05] MEDS: ACETAMINOPHEN 325 MG TAB PO SCH ×3 (09:02→20:15)
[2021-11-05] MEDS: levETIRAcetam 250 MG TAB PO SCH ×2 (09:02→20:15)
[2021-11-05] MEDS: SENNA 8.6 MG TAB PO SCH (09:03)
[2021-11-05] MEDS: POLYETHYLENE (MIRALAX) 17 GM PACK PO SCH (09:03)
[2021-11-05] MEDS: cefTRIAXone SODIUM 2,000 MG in DEXTROSE 5% 50 ML IV SCH (09:39)
[2021-11-05] MEDS: CYCLOBENZAPRINE HCL 5 MG TAB PO PRN (10:27)
[2021-11-05] MEDS: oxyCODONE HCL IR 5 MG TAB (IMMEDIATE RELEASE) PO PRN ×2 (12:47→19:56)
--- NOTE | 2021-11-05 13:20 | Hospitalist Progress Note ---
Date of Service November 05, 2021 Assessment & Plan (1) Syncope: Plan: Syncope -Appreciate Cardiology input, s/p Loop recorder placement 11/01. TTE results unremarkable. No significant events noted on telemetry since being here -Appreciate Neurology input, plan for 72 hour EEG as an outpatient T12 thoracic fracture -plan for surgery today -multimodal pain control: tylenol 650mg TID, gabapentin 100mg BID, lidocaine patch, oxycodone 5-10mg Q 4PRN for mod-severe pain -Please refer to my note yesterday for risk stratification. Patient remains low risk, optimized for OR. -will need PT/OT evaluation post op History of seizure disorder -coneinut on trileptal 450mg BID, Keppra loading dose (now is 250mg BID), depakote ER 1000mg daily Distant history of PE/DVT -distant history of VTE, holding Eliquis in anticipation of surgery. lower extremity u/s is negative for DVT Admission and Anticipated Discharge Date Admission Date: November 02, 2021 Subjective Doing well. Reports right leg soreness, back pain is controlled. Physical Exam Physical Exam: No acute distress, pleasant, non toxic Respiratory: Breathing comfortably on room air, no wheezing/rhonchi/rales Cardiovascular: regular rate and rhythm, no murmurs/rubs/gallops Gastrointestinal (Abdomen): soft, non tender Musculoskeletal: no edema Neurologic: awake, alert Results & Data Results & Data ([facility]) Vital Signs (Past 12 Hours) Vital Signs Temp Pulse Pulse Resp BP Pulse Ox 11/05/21 11:21 36.8 C 67 19 110/76 91 11/05/21 07:51 36.7 C 65 20 110/60 95 11/05/21 07:18 84 Laboratory Results Short CBC 11/05/21 Range/Units 05:49 WBC 3.58 L (4.8-10.8) K/uL Hgb 13.8 (12.0-16.0) g/dL Hct 40.6 (37-47) % Plt Count 245 (130-400) K/uL BMP 11/05/21 05:49 Sodium 132 L Potassium 4.5 Chloride 97 L Carbon Dioxide 29 BUN 9 Creatinine 0.45 L Glucose 85 Calcium 9.1 Medications Administered Current Inpatient Medications Acetaminophen (Acetaminophen 325 Mg Tab) 650 mg PO TID [facility] Stop: 12/02/21 20:59 Last Admin: 11/05/21 09:02 Dose: 650 mg Documented by: Cyclobenzaprine HCl (Cyclobenzaprine Hcl 5 Mg Tab) 5 mg PO TID PRN PRN Reason: spasm Stop: 12/04/21 08:59 Last Admin: 11/05/21 10:27 Dose: 5 mg Documented by: Divalproex Sodium (Divalproex Extended Release 500 Mg Tab) 1,000 mg PO HS [facility] Stop: 12/01/21 01:34 Last Admin: 11/04/21 20:05 Dose: 1,000 mg Documented by: Gabapentin (Gabapentin 100 Mg Cap) 100 mg PO BID [facility] Stop: 12/02/21 20:59 Last Admin: 11/05/21 09:02 Dose: 100 mg Documented by: Heparin Sodium (Porcine) (Heparin Sod 5,000 Unit/0.5 Ml Vial) 5,000 units SQ Q8 [facility] Stop: 12/02/21 13:59 Last Admin: 11/04/21 15:15 Dose: 5,000 units Documented by: Promethazine HCl 12.5 mg/ (Sodium Chloride) 50.5 mls @ 202 mls/hr IV Q6H PRN PRN Reason: Nausea And Vomiting Stop: 12/01/21 00:46 Ceftriaxone Sodium 2,000 mg/ (Dextrose) 70 mls @ 100 mls/hr IV Q24H [facility]; Protocol Stop: 11/08/21 08:59 Last Infusion: 11/05/21 10:21 Dose: Infused Documented by: Levetiracetam (Levetiracetam 250 Mg Tab) 250 mg PO BID [facility] Stop: 12/02/21 20:59 Last Admin: 11/05/21 09:02 Dose: 250 mg Documented by: Levothyroxine Sodium (Levothyroxine Sodium 75 Mcg Tablet) 75 mcg PO DAILYBB [facility] Stop: 12/01/21 06:29 Last Admin: 11/05/21 06:14 Dose: Not Given Documented by: Lidocaine (Lidocaine 5% 1 Patch) 1 patch TD Q24H [facility] Stop: 11/30/21 23:14 Last Admin: 11/04/21 22:18 Dose: Not Given Documented by: Lorazepam (Lorazepam 2 Mg/1 Ml Vial) 1 mg IV Q10M PRN PRN Reason: active seizures Stop: 12/01/21 00:46 Melatonin (Melatonin 3 Mg Tab) 3 mg PO HS PRN PRN Reason: Sleep Stop: 12/01/21 19:16 Miconazole Nitrate (Miconazole Nitrate Powder 43 Gm) 1 appln EXT PRN PRN PRN Reason: Affected Skin Folds Stop: 12/01/21 18:53 Last Admin: 11/02/21 06:30 Dose: 1 appln Documented by: Miscellaneous (Remove Lidoderm Patch) 1 ea N/A Q24H [facility] Stop: 12/01/21 11:14 Last Admin: 11/05/21 12:17 Dose: Not Given Documented by: Morphine Sulfate (Morphine Sulfate 2 Mg/Ml Carp) 2 mg IV Q4H PRN PRN Reason: Pain Stop: 11/15/21 00:46 Last Admin: 11/02/21 10:35 Dose: 2 mg Documented by: Oxcarbazepine (Oxcarbazepine 150 Mg Tablet) 450 mg PO BID [facility] Stop: 12/02/21 20:59 Last Admin: 11/05/21 09:02 Dose: 450 mg Documented by: Oxycodone HCl (Oxycodone Hcl Ir 5 Mg Tab (Immediate Release)) 5 - 10 mg PO Q4 PRN PRN Reason: Pain Stop: 11/15/21 00:46 Last Admin: 11/05/21 12:47 Dose: 5 mg Documented by: Polyethylene Glycol (Polyethylene (Miralax) 17 Gm Pack) 17 gm PO DAILY [facility] Stop: 12/04/21 08:59 Last Admin: 11/05/21 09:03 Dose: Not Given Documented by: Saccharomyces Boulardii (Saccharomyces Boulardii 250 Mg Cap) 250 mg PO DAILY [facility] Stop: 12/04/21 08:59 Last Admin: 11/05/21 09:02 Dose: 250 mg Documented by: Sennosides (Senna 8.6 Mg Tab) 8.6 mg PO QAM [facility] Stop: 12/04/21 08:59 Last Admin: 11/05/21 09:03 Dose: 8.6 mg Documented by:
--- NOTE | 2021-11-05 13:49 | Anesthesiology Consultation ---
Date of Service November 05, 2021 Assessment & Plan (1) Encounter for pre-operative examination: Chart Review Chart Review: Acceptable Risk for Surgery and Patient NOT seen in Pre Admission Testing Consults Requested none History Surgery Operation Date: 11/01/21 12:30 Proposed Procedures p Loop Insertion - Taurus Garcias MD Operation Date: 11/05/21 09:30 Proposed Procedures p T12 Kyphoplasty - Kevin Carmen DO Height/Weight Height: 5 ft 4 in Weight: 92 kg Allergies Allergy/AdvReac Type Severity Reaction Status Date / Time amoxicillin Allergy Rash Verified 10/31/21 22:41 Medications Home Medications Medication Instructions Recorded Confirmed Last Taken acetaminophen 500 mg tablet 1,000 mg PO Q6H PRN 10/31/21 10/31/21 Unknown (Tylenol Extra Strength) apixaban 5 mg tablet (Eliquis) 5 mg PO BID 10/31/21 10/31/21 10/30/21 divalproex 500 mg tablet,extended 1,000 mg PO HS 10/31/21 10/31/21 10/30/21 release 24 hr eszopiclone 2 mg tablet 2 mg PO HS 10/31/21 10/31/21 Unknown levetiracetam 500 mg tablet 250 mg PO HS 10/31/21 10/31/21 10/30/21 levothyroxine 75 mcg tablet 75 mcg PO DAILY 10/31/21 10/31/21 10/30/21 (Euthyrox) oxcarbazepine 150 mg tablet 450 mg PO DAILY 10/31/21 10/31/21 10/30/21 Active Medications Generic Name Dose Route Start Last Admin Trade Name Imelda PRN Reason Stop Dose Admin Acetaminophen 650 mg 11/02/21 21:00 11/05/21 09:02 Acetaminophen 325 Mg Tab PO 12/02/21 20:59 650 mg TID SACHA Administration Cyclobenzaprine HCl 5 mg 11/04/21 07:40 11/05/21 10:27 Cyclobenzaprine Hcl 5 Mg Tab PO 12/04/21 08:59 5 mg TID PRN Administration spasm Divalproex Sodium 1,000 mg 11/01/21 01:35 11/04/21 20:05 Divalproex Extended Release 500 Mg Tab PO 12/01/21 01:34 1,000 mg HS SACHA Administration Gabapentin 100 mg 11/02/21 21:00 11/05/21 09:02 Gabapentin 100 Mg Cap PO 12/02/21 20:59 100 mg BID SACHA Administration Heparin Sodium (Porcine) 5,000 units 11/02/21 14:00 11/04/21 15:15 Heparin Sod 5,000 Unit/0.5 Ml Vial SQ 12/02/21 13:59 5,000 units Q8 SACHA Administration Ceftriaxone Sodium 2,000 mg/ 70 mls @ 100 mls/hr 11/03/21 09:00 11/05/21 10:21 Dextrose IV 11/08/21 08:59 Infused Q24H SACHA Infusion Protocol Levetiracetam 250 mg 11/02/21 21:00 11/05/21 09:02 Levetiracetam 250 Mg Tab PO 12/02/21 20:59 250 mg BID SACHA Administration Levothyroxine Sodium 75 mcg 11/01/21 06:30 11/05/21 06:14 Levothyroxine Sodium 75 Mcg Tablet PO 12/01/21 06:29 Not Given DAILYBB [facility] Lidocaine 1 patch 10/31/21 23:15 11/04/21 22:18 Lidocaine 5% 1 Patch TD 11/30/21 23:14 Not Given Q24H [facility] Miconazole Nitrate 1 appln 11/01/21 18:54 11/02/21 06:30 Miconazole Nitrate Powder 43 Gm EXT 12/01/21 18:53 1 appln PRN PRN Administration Affected Skin Folds Miscellaneous 1 ea 11/01/21 11:15 11/05/21 12:17 Remove Lidoderm Patch N/A 12/01/21 11:14 Not Given Q24H [facility] Morphine Sulfate 2 mg 11/02/21 10:04 11/02/21 10:35 Morphine Sulfate 2 Mg/Ml Carp IV 11/15/21 00:46 2 mg Q4H PRN Administration Pain Oxcarbazepine 450 mg 11/02/21 21:00 11/05/21 09:02 Oxcarbazepine 150 Mg Tablet PO 12/02/21 20:59 450 mg BID SACHA Administration Oxycodone HCl 5 - 10 mg 11/02/21 10:04 11/05/21 12:47 Oxycodone Hcl Ir 5 Mg Tab (Immediate Release) PO 11/15/21 00:46 5 mg Q4 PRN Administration Pain Polyethylene Glycol 17 gm 11/04/21 09:00 11/05/21 09:03 Polyethylene (Miralax) 17 Gm Pack PO 12/04/21 08:59 Not Given DAILY [facility] Saccharomyces Boulardii 250 mg 11/04/21 09:00 11/05/21 09:02 Saccharomyces Boulardii 250 Mg Cap PO 12/04/21 08:59 250 mg DAILY [facility] Administration Sennosides 8.6 mg 11/04/21 09:00 11/05/21 09:03 Senna 8.6 Mg Tab PO 12/04/21 08:59 8.6 mg QAM [facility] Administration NPO Date Last Intake of Fluids: 11/05/21 Time Last Intake of Fluids: 12:45 Date Last Intake of Solids: 11/04/21 Past Medical History Medical History Cancer SKIN CANCER Deep vein thrombosis Hallucination Hallucinations (05/29/11) Hearing deficit Hypothyroidism Hypothyroidism On home oxygen therapy [place] OXYGEN AT NIGHT (UNSURE OF LITER) Peripheral neuropathy Psychosis Pulmonary embolism Seizure LAST EPISODE (THIS YEAR/UNSURE OF DATE) ? SEIZURE TYPE>FOLLOWS WITH DR. PHOENIX. OLD RECORDS NOTE EPILEPSY Seizure disorder Sleep apnea NO DEVICE USED NOW (CPAP USED IN PAST) Witnessed seizure-like activity Past Family History Family History Mother Family hx of colon cancer Past Surgical History Surgical History History of adenoidectomy History of bilateral tubal ligation History of colonoscopy History of tonsillectomy History of tooth extraction Social History Smoking Status: Never smoker Hx Alcohol Use: No Hx Substance Use: No substance use type: does not use Physical Exam Vital Signs Last Vital Signs Temp 98.2 F 11/05/21 11:21 Pulse 67 11/05/21 11:21 Resp 19 11/05/21 11:21 BP 110/76 11/05/21 11:21 Pulse Ox 91 11/05/21 11:21 Testing Laboratory Results 11/05/21 05:49 11/05/21 05:49 PT 10.9 Seconds (9.0-12.0) 11/05/21 05:49 INR 1.0 (0.9-1.1) 11/05/21 05:49 APTT 29.3 Seconds (21.0-31.0) 11/01/21 23:00 Hemoglobin A1c 5.0 % (4.5-5.6) 10/31/21 17:35 Urine Color Yellow 11/03/21 13:50 Urine Appearance Clear (Clear) 11/03/21 13:50 Urine pH 6.5 (4.5-7.5) 11/03/21 13:50 Ur Specific [place] 1.020 (1.000-1.030) 11/03/21 13:50 Urine Protein Negative (Negative) 11/03/21 13:50 Urine Glucose (UA) Negative (Negative) 11/03/21 13:50 Urine Ketones 1+ (Negative) H 11/03/21 13:50 Urine Nitrite Negative (Negative) 11/03/21 13:50 Ur Leukocyte Esterase 1+ (Negative) H 11/03/21 13:50 Urine WBC (Auto) 5-10 /hpf (0-5) H 11/03/21 13:50 Urine RBC (Auto) 0-4 /hpf (0-4) 11/03/21 13:50 U Hyaline Cast (Auto) 1-5 /lpf (0-5) 11/03/21 13:50 U Epithel Cells (Auto) >30 /lpf (0-5) H 11/03/21 13:50 Urine Bacteria (Auto) Negative (Negative) 11/03/21 13:50 11/01/21 01:00 Urine Culture - Final Urine,Clean Catch More than three types of organisms present, all moderate counts mixed probable skin yusuf. No further identifications or sensitivities to follow. Electrocardiogram Date: 10/31/21 Findings: + NSR @ Chest X-Ray Date: 10/31/21 Findings: + NAD and + cardiomegaly
--- NOTE | 2021-11-05 14:38 | History & Physical Bridge Note ---
Date of Service November 05, 2021 History & Physical Bridge Note I have examined the patient, reviewed the History & Physical and in the interval since the performance of the History & Physical I have noted the following changes of clinical significance: no changes noted T12 kyphoplasty
[2021-11-05] MEDS ORDERED: fentaNYL citrate 100 MCG/2 ML VIAL IV PRN (14:43)
[2021-11-05] MEDS ORDERED: ePHEDrine sulfate 50 MG/ML AMP IV PRN (14:43)
[2021-11-05] MEDS ORDERED: ATROPINE SULFATE 0.1 MG/ML 10ML SYR IV PRN (14:43)
[2021-11-05] MEDS ORDERED: ONDANSETRON INJ 2 MG/ML 2 ML VIAL IV PRN (14:43)
[2021-11-05] MEDS ORDERED: PROPOFOL IV EMULSION 10 MG/ML 20 ML VIAL IV ONE (15:04)
[2021-11-05] MEDS ORDERED: MIDAZOLAM HCL 1 MG/ML 2ML VIAL ONE (15:04)
[2021-11-05] MEDS ORDERED: LIDOCAINE 2% 2 ML VIAL/AMP(20MG/ML) INFIL ONE (15:04)
[2021-11-05] MEDS ORDERED: fentaNYL citrate 100 MCG/2 ML VIAL ONE (15:05)
[2021-11-05] MEDS ORDERED: DEXAMETHASONE SOD INJ 4 MG/ML VIAL ONE (15:07)
[2021-11-05] MEDS ORDERED: ONDANSETRON INJ 2 MG/ML 2 ML VIAL ONE (15:07)
[2021-11-05] MEDS ORDERED: BUPIVACAINE 0.5 % 5 MG/1 ML MPF 30ML VIAL ONE (15:09)
[2021-11-05] MEDS ORDERED: EPINEPHrine INJ 1 MG/ML AMP ONE (15:09)
[2021-11-05] MEDS ORDERED: ROCURONIUM BROMIDE 10 MG/ML 5 ML VIAL IV ONE (15:41)
[2021-11-05] MEDS ORDERED: IOPAMIDOL INJ 61% 15 ML VIAL INSTIL ONE (15:59)
[2021-11-05] MEDS ORDERED: GLYCOPYRROLATE 0.2 MG/ML VIAL ONE (16:15)
[2021-11-05] MEDS ORDERED: NEOSTIGMINE METHYLSULFATE 1 MG/ML 10ML VIAL ONE (16:15)
--- NOTE | 2021-11-05 16:23 | Operative Report ---
Post Operative Report Pre & Post Diagnosis Operation Date: 11/01/21 12:30 <No data on this case meets the specified criteria> Operation Date: 11/05/21 09:30 Pre-Op Diagnosis: T12 Burst Fracture Post-Op Diagnosis: T12 Burst Fracture I identified the patient and participated in the time-out.: Yes Procedure Operation Date: 11/01/21 12:30 Actual Procedures p Implant Cardiac Event Recorder - Taurus Garcias MD Operation Date: 11/05/21 09:30 Actual Procedures #1 T12 kyphoplasty. #2 biopsy of T12 vertebral body. 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 She has significant pain inability to mobilize and is here for kyphoplasty. Description of Procedure Patient was met with identified informed consent obtained. Patient was then taken to the operative suite underwent intubation placed in a prone position the Prakash table chest padded bolsters. All bony prominences well-padded eyes inspected to ensure no external pressure placed upon the. This point the thoracolumbar spine was prepped and draped normal sterile fashion. The assistance of fluoroscopy identified the T12 vertebral body and pedicles. 2 small incisions were created lateral to the pedicles and 2 Kyphon working cannulas were placed by way of a transpedicular approach into the vertebral body. We did this with fluoroscopy in AP and lateral views. 2 core biopsies were then obtained. I then inserted 2 Kyphon 15 mm balloons and sequentially i nflated these balloons. The balloons were subsequently removed and approximately 6 cc of Kyphon cement was injected with fluoroscopic visualization demonstrating excellent interdigitation and fill. After this is complete the working apparatus was removed the small incisions closed with subcutaneous Monocryl and sterile dressings placed. Patient was awakened taken to PACU stable condition. I attest to the content of the Intraoperative Record and any orders documented therein. Any exceptions are noted below.
--- NOTE | 2021-11-05 17:26 | Anesthesiology Progress Note ---
Date of Service November 05, 2021 Anesthesia Post Procedure Vital Signs Vital Signs: Temp Pulse Pulse Resp BP BP Pulse Ox 11/05/21 17:10 36.5 C 64 16 168/86 H 94 11/05/21 17:00 63 15 167/83 H 95 11/05/21 16:50 65 16 166/89 H 100 11/05/21 16:40 66 18 156/89 H 98 11/05/21 16:35 73 18 166/99 H 98 11/05/21 16:29 36.5 C 79 20 157/91 H 98 11/05/21 14:11 36.6 C 67 18 145/88 H 95 11/05/21 11:21 36.8 C 67 19 110/76 91 11/05/21 07:51 36.7 C 65 20 110/60 95 11/05/21 07:18 84 11/04/21 22:18 69 11/04/21 22:11 36.8 C 77 20 151/73 H 92 11/04/21 19:25 36.8 C 73 18 130/68 94 Pain Intensity Lower Lumbar: Pain Intensity: 8 Medial Back: Pain Intensity: 0 Transfer of Care Handoff Completed per policy Notes Mental Status: alert / awake / arousable and participated in evaluation Patient Amnestic to Procedure: Yes Nausea / Vomiting: adequately controlled Pain: adequately controlled Airway Patency, RR, SpO2: stable & adequate BP & HR: stable & adequate Hydration State: stable & adequate Anesthetic Complications: no major complications apparent and Pt Satisfied with anesthetic care
--- NOTE | 2021-11-05 18:00 | Fluoroscopy Report ---
INTRAOPERATIVE RADIOGRAPHS CLINICAL HISTORY: T12 kyphoplasty. Fluoroscopy time: 161 seconds. FINDINGS: 2 spot fluoroscopic views of the thoracolumbar junction are correlated with thoracic spine CT dated 11/01/2021. Chronic kyphoplasty cement is again seen in the L1 vertebral body. Arthroplasty c ement is placed within the T12 vertebral body during the procedure. IMPRESSION: Intraoperative images from a T12 kyphoplasty procedure as above. Electronically signed by: Janusz Casillas M.D. 11/05/2021 5:59 PM
[2021-11-05] MEDS: DIVALPROEX EXTENDED RELEASE 500 MG TAB PO SCH (20:15)
[2021-11-05] MEDS: LIDOCAINE 5% 1 PATCH TD SCH (22:47)
[2021-11-06] MEDS: LEVOTHYROXINE SODIUM 75 MCG TABLET PO SCH (05:38)
[2021-11-06 07:05] LABS: Hematocrit (blood only) 41.3 % (37-47); Mean Corpuscular Hemoglobin 30.9 pg (25-34); Mean Corpuscular Hgb Conc 33.9 g/dL (32-36); Mean Corpuscular Volume 91.2 fL (80-100); Mean Platelet Volume 9.4 fL (7.4-10.4); Platelet Count 253 K/uL (130-400); RDW Coefficient of Variation 13.1 % (11.5-14.5); RDW Standard Deviation 43.8 fL (36.4-46.3); Red Blood Count 4.53 M/uL (4.2-5.4); White Blood Count 5.05 K/uL (4.8-10.8)
[2021-11-06 07:32] LABS: BUN Creatinine Ratio 17.4 (10-20); Calcium 9.1 mg/dl (8.5-10.1); Creatinine Clr Calc Pharmacy 128.7 ml/min; Est GFR (African American) 116.8 ml/min; Est GFR (Non-African American) 100.8 ml/min; Potassium 4.1 mmol/L (3.5-5.1)
[2021-11-06] MEDS: CYCLOBENZAPRINE HCL 5 MG TAB PO PRN (08:28)
[2021-11-06] MEDS: ACETAMINOPHEN 325 MG TAB PO SCH ×3 (08:28→20:26)
[2021-11-06] MEDS: SENNA 8.6 MG TAB PO SCH (08:29)
[2021-11-06] MEDS: GABAPENTIN 100 MG CAP PO SCH ×2 (08:29→20:27)
[2021-11-06] MEDS: POLYETHYLENE (MIRALAX) 17 GM PACK PO SCH (08:29)
[2021-11-06] MEDS: levETIRAcetam 250 MG TAB PO SCH ×2 (08:29→20:26)
[2021-11-06] MEDS: SACCHAROMYCES BOULARDII 250 MG CAP PO SCH (08:29)
[2021-11-06] MEDS: OXcarbazepine 150 MG TABLET PO SCH ×2 (08:29→20:25)
[2021-11-06] MEDS: CHOLECALCIFEROL 5,000 UNITS 125 MCG TAB PO SCH (10:21)
--- NOTE | 2021-11-06 11:42 | Orthopedic Progress Note ---
Date of Service November 06, 2021 Assessment & Plan (1) Burst fracture of T12 vertebra: Plan: Patient seems to have responded well from the kyphoplasty. I would recommend continued therapy and ambulation as tolerated. Admission and Anticipated Discharge Date Admission Date: November 02, 2021 Subjective Patient's back pain is markedly improved. Physical Exam Physical Exam: Patient is in the chair at the bedside. She appears comfortable. Is good strength testing. Results & Data ([facility]) Vital Signs (Past 12 Hours) Vital Signs Temp Pulse Pulse Pulse Resp BP Pulse Ox 11/06/21 11:09 36.7 C 93 H 20 117/83 95 11/06/21 09:58 72 11/06/21 07:14 36.7 C 72 20 118/76 91 11/06/21 02:53 36.7 C 76 18 121/79 96
--- NOTE | 2021-11-06 13:26 | Hospitalist Progress Note ---
Date of Service November 06, 2021 Assessment & Plan (1) Syncope: Plan: Syncope -Appreciate Cardiology input, s/p Loop recorder placement 11/01. TTE results unremarkable. -Appreciate Neurology input, plan for 72 hour EEG as an outpatient T12 thoracic fracture -s/p kyphoplasty 11/05 -continue multimodal pain control: tylenol 650mg TID, gabapentin 100mg BID, lidocaine patch, oxycodone 5-10mg Q 4PRN for mod-severe pain -Evaluated by PT today and rehab is recommended History of seizure disorder -continue on trileptal 450mg BID, Keppra loading dose (now is 250mg BID), depakote ER 1000mg daily Distant history of PE/DVT -distant history of VTE. lower extremity u/s is negative for DVT -Eliquis has been held for surgery, resume when cleared by Ortho Admission and Anticipated Discharge Date Admission Date: November 02, 2021 Subjective Back pain is much improved after her surgery. She does not have any pain at all while sitting Physical Exam Physical Exam: Appears well. Sitting in chair with her brace on Respiratory: Breathing comfortably on room air, no wheezing/rhonchi Cardiovascular: regular rate and rhythm, no murmurs/rubs/gallops Gastrointestinal (Abdomen): soft, non tender, non distended Musculoskeletal: No edema Neurologic: awake, alert, spontaneously moving extremities Results & Data Results & Data ([facility]) Vital Signs (Past 12 Hours) Vital Signs Temp Pulse Pulse Pulse Resp BP Pulse Ox 11/06/21 11:09 36.7 C 93 H 20 117/83 95 11/06/21 09:58 72 11/06/21 07:14 36.7 C 72 20 118/76 91 11/06/21 02:53 36.7 C 76 18 121/79 96 Laboratory Results Short CBC 11/06/21 Range/Units 06:50 WBC 5.05 (4.8-10.8) K/uL Hgb 14.0 (12.0-16.0) g/dL Hct 41.3 (37-47) % Plt Count 253 (130-400) K/uL BMP 11/06/21 06:50 Sodium 130 L Potassium 4.1 Chloride 95 L Carbon Dioxide 27 BUN 8 Creatinine 0.46 L Glucose 100 H Calcium 9.1 Medications Administered Current Inpatient Medications Acetaminophen (Acetaminophen 325 Mg Tab) 650 mg PO TID SACHA Stop: 12/02/21 20:59 Last Admin: 11/06/21 13:15 Dose: 650 mg Documented by: Cyclobenzaprine HCl (Cyclobenzaprine Hcl 5 Mg Tab) 5 mg PO TID PRN PRN Reason: spasm Stop: 12/04/21 08:59 Last Admin: 11/06/21 08:28 Dose: 5 mg Documented by: Divalproex Sodium (Divalproex Extended Release 500 Mg Tab) 1,000 mg PO HS [facility] Stop: 12/01/21 01:34 Last Admin: 11/05/21 20:15 Dose: 1,000 mg Documented by: Gabapentin (Gabapentin 100 Mg Cap) 100 mg PO BID [facility] Stop: 12/02/21 20:59 Last Admin: 11/06/21 08:29 Dose: 100 mg Documented by: Promethazine HCl 12.5 mg/ (Sodium Chloride) 50.5 mls @ 202 mls/hr IV Q6H PRN PRN Reason: Nausea And Vomiting Stop: 12/01/21 00:46 Levetiracetam (Levetiracetam 250 Mg Tab) 250 mg PO BID [facility] Stop: 12/02/21 20:59 Last Admin: 11/06/21 08:29 Dose: 250 mg Documented by: Levothyroxine Sodium (Levothyroxine Sodium 75 Mcg Tablet) 75 mcg PO DAILYBB [facility] Stop: 12/01/21 06:29 Last Admin: 11/06/21 05:38 Dose: 75 mcg Documented by: Lidocaine (Lidocaine 5% 1 Patch) 1 patch TD Q24H [facility] Stop: 11/30/21 23:14 Last Admin: 11/05/21 22:47 Dose: Not Given Documented by: Lorazepam (Lorazepam 2 Mg/1 Ml Vial) 1 mg IV Q10M PRN PRN Reason: active seizures Stop: 12/01/21 00:46 Melatonin (Melatonin 3 Mg Tab) 3 mg PO HS PRN PRN Reason: Sleep Stop: 12/01/21 19:16 Miconazole Nitrate (Miconazole Nitrate Powder 43 Gm) 1 appln EXT PRN PRN PRN Reason: Affected Skin Folds Stop: 12/01/21 18:53 Last Admin: 11/02/21 06:30 Dose: 1 appln Documented by: Miscellaneous (Remove Lidoderm Patch) 1 ea N/A Q24H [facility] Stop: 12/01/21 11:14 Last Admin: 11/06/21 10:35 Dose: Not Given Documented by: Morphine Sulfate (Morphine Sulfate 2 Mg/Ml Carp) 2 mg IV Q4H PRN PRN Reason: Pain Stop: 11/15/21 00:46 Last Admin: 11/02/21 10:35 Dose: 2 mg Documented by: Oxcarbazepine (Oxcarbazepine 150 Mg Tablet) 450 mg PO BID [facility] Stop: 12/02/21 20:59 Last Admin: 11/06/21 08:29 Dose: 450 mg Documented by: Oxycodone HCl (Oxycodone Hcl Ir 5 Mg Tab (Immediate Release)) 5 - 10 mg PO Q4 PRN PRN Reason: Pain Stop: 11/15/21 00:46 Last Admin: 11/05/21 19:56 Dose: 10 mg Documented by: Polyethylene Glycol (Polyethylene (Miralax) 17 Gm Pack) 17 gm PO DAILY [facility] Stop: 12/04/21 08:59 Last Admin: 11/06/21 08:29 Dose: 17 gm Documented by: Saccharomyces Boulardii (Saccharomyces Boulardii 250 Mg Cap) 250 mg PO DAILY [facility] Stop: 12/04/21 08:59 Last Admin: 11/06/21 08:29 Dose: 250 mg Documented by: Sennosides (Senna 8.6 Mg Tab) 8.6 mg PO QAM [facility] Stop: 12/04/21 08:59 Last Admin: 11/06/21 08:29 Dose: 8.6 mg Documented by: Vitamin D (Cholecalciferol 5,000 Units 125 Mcg Tab) 5,000 units PO QAM [facility] Stop: 12/06/21 08:59 Last Admin: 11/06/21 10:21 Dose: 5,000 units Documented by:
[2021-11-06] MEDS: DIVALPROEX EXTENDED RELEASE 500 MG TAB PO SCH (20:26)
[2021-11-07] MEDS: LIDOCAINE 5% 1 PATCH TD SCH ×2 (00:07→23:07)
[2021-11-07] MEDS: LEVOTHYROXINE SODIUM 75 MCG TABLET PO SCH (06:17)
[2021-11-07 07:30] LABS: Hematocrit (blood only) 38.1 % (37-47); Hemoglobin 13.2 g/dL (12.0-16.0); Mean Corpuscular Hemoglobin 31.4 pg (25-34); Mean Corpuscular Hgb Conc 34.6 g/dL (32-36); Mean Corpuscular Volume 90.5 fL (80-100); Mean Platelet Volume 9.1 fL (7.4-10.4); Platelet Count 216 K/uL (130-400); RDW Coefficient of Variation 13.5 % (11.5-14.5); RDW Standard Deviation 44.4 fL (36.4-46.3); Red Blood Count 4.21 M/uL (4.2-5.4); White Blood Count 4.81 K/uL (4.8-10.8)
[2021-11-07 07:58] LABS: BUN Creatinine Ratio 15.9 (10-20); Calcium 8.6 mg/dl (8.5-10.1); Creatinine Clr Calc Pharmacy 136.8 ml/min; Est GFR (African American) 118.5 ml/min; Est GFR (Non-African American) 102.3 ml/min; Potassium 3.7 mmol/L (3.5-5.1)
[2021-11-07] MEDS: GABAPENTIN 100 MG CAP PO SCH ×2 (08:22→20:02)
[2021-11-07] MEDS: ACETAMINOPHEN 325 MG TAB PO SCH ×3 (08:23→20:02)
[2021-11-07] MEDS: levETIRAcetam 250 MG TAB PO SCH ×2 (08:24→20:01)
[2021-11-07] MEDS: OXcarbazepine 150 MG TABLET PO SCH ×2 (08:24→20:00)
[2021-11-07] MEDS: SENNA 8.6 MG TAB PO SCH (08:24)
[2021-11-07] MEDS: CHOLECALCIFEROL 5,000 UNITS 125 MCG TAB PO SCH (08:24)
[2021-11-07] MEDS: SACCHAROMYCES BOULARDII 250 MG CAP PO SCH (08:24)
[2021-11-07] MEDS: POLYETHYLENE (MIRALAX) 17 GM PACK PO SCH (08:25)
--- NOTE | 2021-11-07 09:38 | Hospitalist Progress Note ---
Date of Service November 07, 2021 Assessment & Plan (1) Syncope: Plan: Syncope -Appreciate Cardiology input, s/p Loop recorder placement 11/01. TTE results unremarkable. -Appreciate Neurology input, plan for 72 hour EEG as an outpatient T12 thoracic fracture -s/p kyphoplasty 11/05 -continue multimodal pain control: tylenol 650mg TID, gabapentin 100mg BID, lidocaine patch, oxycodone 5-10mg Q 4PRN for mod-severe pain -Evaluated by PT and rehab is recommended History of seizure disorder -continue on trileptal 450mg BID, Keppra loading dose (now is 250mg BID), depakote ER 1000mg daily Distant history of PE/DVT -distant history of VTE. lower extremity u/s is negative for DVT -Eliquis has been held for surgery, resume when cleared by Ortho Hyponatremia Hypochloremia -in setting of poor solid food intake due to missing dentures -will change to minced/moist diet -place on gentle IVF-- NSS at 100cc/hr x 24 hours -repeat BMP tomorrow Disposition--Likely discharge tomorrow pending bed availability at [facility] and if patient feels better Admission and Anticipated Discharge Date Admission Date: November 02, 2021 Subjective Poor appetite, having difficulty chewing her food because she doesn't have her dentures Also feels a little light headed at times, feels weak Physical Exam Physical Exam: Appears weak, non toxic ENMT: Mucous membrane dry, poor skin turgor Respiratory: Breathing comfortably on room air Cardiovascular: Regular rate and rhythm Musculoskeletal: No edema Results & Data Results & Data ([facility]) Vital Signs (Past 12 Hours) Vital Signs Temp Pulse Pulse Resp BP Pulse Ox 11/07/21 08:06 36.7 C 73 18 97/67 L 94 11/07/21 07:30 70 11/07/21 03:20 36.4 C L 75 18 130/87 94 11/07/21 02:41 74 11/07/21 00:07 79 119/78 11/06/21 23:18 88/58 L 11/06/21 23:08 36.8 C 74 18 97/63 L 92 Laboratory Results Short CBC 11/07/21 Range/Units 07:12 WBC 4.81 (4.8-10.8) K/uL Hgb 13.2 (12.0-16.0) g/dL Hct 38.1 (37-47) % Plt Count 216 (130-400) K/uL BMP 11/07/21 07:12 Sodium 131 L Potassium 3.7 Chloride 96 L Carbon Dioxide 29 BUN 7 Creatinine 0.44 L Glucose 90 Calcium 8.6 Medications Administered Current Inpatient Medications Acetaminophen (Acetaminophen 325 Mg Tab) 650 mg PO TID [facility] Stop: 12/02/21 20:59 Last Admin: 11/07/21 08:23 Dose: 650 mg Documented by: Cyclobenzaprine HCl (Cyclobenzaprine Hcl 5 Mg Tab) 5 mg PO TID PRN PRN Reason: spasm Stop: 12/04/21 08:59 Last Admin: 11/06/21 08:28 Dose: 5 mg Documented by: Divalproex Sodium (Divalproex Extended Release 500 Mg Tab) 1,000 mg PO HS [facility] Stop: 12/01/21 01:34 Last Admin: 11/06/21 20:26 Dose: 1,000 mg Documented by: Gabapentin (Gabapentin 100 Mg Cap) 100 mg PO BID [facility] Stop: 12/02/21 20:59 Last Admin: 11/07/21 08:22 Dose: 100 mg Documented by: Promethazine HCl 12.5 mg/ (Sodium Chloride) 50.5 mls @ 202 mls/hr IV Q6H PRN PRN Reason: Nausea And Vomiting Stop: 12/01/21 00:46 Sodium Chloride (Nss 1000ml) 1,000 mls @ 100 mls/hr IV .Q10H [facility] Stop: 12/07/21 09:14 Levetiracetam (Levetiracetam 250 Mg Tab) 250 mg PO BID [facility] Stop: 12/02/21 20:59 Last Admin: 11/07/21 08:24 Dose: 250 mg Documented by: Levothyroxine Sodium (Levothyroxine Sodium 75 Mcg Tablet) 75 mcg PO DAILYBB [facility] Stop: 12/01/21 06:29 Last Admin: 11/07/21 06:17 Dose: 75 mcg Documented by: Lidocaine (Lidocaine 5% 1 Patch) 1 patch TD Q24H [facility] Stop: 11/30/21 23:14 Last Admin: 11/07/21 00:07 Dose: Not Given Documented by: Lorazepam (Lorazepam 2 Mg/1 Ml Vial) 1 mg IV Q10M PRN PRN Reason: active seizures Stop: 12/01/21 00:46 Melatonin (Melatonin 3 Mg Tab) 3 mg PO HS PRN PRN Reason: Sleep Stop: 12/01/21 19:16 Miconazole Nitrate (Miconazole Nitrate Powder 43 Gm) 1 appln EXT PRN PRN PRN Reason: Affected Skin Folds Stop: 12/01/21 18:53 Last Admin: 11/02/21 06:30 Dose: 1 appln Documented by: Miscellaneous (Remove Lidoderm Patch) 1 ea N/A Q24H [facility] Stop: 12/01/21 11:14 Last Admin: 11/06/21 10:35 Dose: Not Given Documented by: Morphine Sulfate (Morphine Sulfate 2 Mg/Ml Carp) 2 mg IV Q4H PRN PRN Reason: Pain Stop: 11/15/21 00:46 Last Admin: 11/02/21 10:35 Dose: 2 mg Documented by: Oxcarbazepine (Oxcarbazepine 150 Mg Tablet) 450 mg PO BID [facility] Stop: 12/02/21 20:59 Last Admin: 11/07/21 08:24 Dose: 450 mg Documented by: Oxycodone HCl (Oxycodone Hcl Ir 5 Mg Tab (Immediate Release)) 5 - 10 mg PO Q4 PRN PRN Reason: Pain Stop: 11/15/21 00:46 Last Admin: 11/05/21 19:56 Dose: 10 mg Documented by: Polyethylene Glycol (Polyethylene (Miralax) 17 Gm Pack) 17 gm PO DAILY [facility] Stop: 12/04/21 08:59 Last Admin: 11/07/21 08:25 Dose: 17 gm Documented by: Saccharomyces Boulardii (Saccharomyces Boulardii 250 Mg Cap) 250 mg PO DAILY [facility] Stop: 12/04/21 08:59 Last Admin: 11/07/21 08:24 Dose: 250 mg Documented by: Sennosides (Senna 8.6 Mg Tab) 8.6 mg PO QAM [facility] Stop: 12/04/21 08:59 Last Admin: 11/07/21 08:24 Dose: 8.6 mg Documented by: Vitamin D (Cholecalciferol 5,000 Units 125 Mcg Tab) 5,000 units PO QAM [facility] Stop: 12/06/21 08:59 Last Admin: 11/07/21 08:24 Dose: 5,000 units Documented by:
[2021-11-07] MEDS: SODIUM CHLORIDE 0.9% 1000ML 1,000 ML IV SCH ×2 (11:03→21:02)
[2021-11-07] MEDS: DIVALPROEX EXTENDED RELEASE 500 MG TAB PO SCH (20:01)
[2021-11-08] MEDS: LEVOTHYROXINE SODIUM 75 MCG TABLET PO SCH (06:23)
[2021-11-08] MEDS: SODIUM CHLORIDE 0.9% 1000ML 1,000 ML IV SCH (07:22)
[2021-11-08 08:52] LABS: Hematocrit (blood only) 39.1 % (37-47); Hemoglobin 13.7 g/dL (12.0-16.0); Mean Corpuscular Hemoglobin 31.7 pg (25-34); Mean Corpuscular Volume 90.5 fL (80-100); Mean Platelet Volume 9.2 fL (7.4-10.4); Platelet Count 249 K/uL (130-400); RDW Coefficient of Variation 13.5 % (11.5-14.5); Red Blood Count 4.32 M/uL (4.2-5.4)
[2021-11-08] MEDS: ACETAMINOPHEN 325 MG TAB PO SCH ×2 (09:00→14:32)
[2021-11-08] MEDS: OXcarbazepine 150 MG TABLET PO SCH (09:00)
[2021-11-08] MEDS: GABAPENTIN 100 MG CAP PO SCH (09:00)
[2021-11-08] MEDS: levETIRAcetam 250 MG TAB PO SCH (09:00)
[2021-11-08] MEDS: CYCLOBENZAPRINE HCL 5 MG TAB PO PRN (09:01)
[2021-11-08] MEDS: SENNA 8.6 MG TAB PO SCH (09:01)
[2021-11-08] MEDS: CHOLECALCIFEROL 5,000 UNITS 125 MCG TAB PO SCH (09:01)
[2021-11-08] MEDS: POLYETHYLENE (MIRALAX) 17 GM PACK PO SCH (09:02)
[2021-11-08] MEDS: SACCHAROMYCES BOULARDII 250 MG CAP PO SCH (09:02)
[2021-11-08] MEDS: oxyCODONE HCL IR 5 MG TAB (IMMEDIATE RELEASE) PO PRN (09:03)
[2021-11-08 09:26] LABS: Calcium 8.7 mg/dl (8.5-10.1); Creatinine Clr Calc Pharmacy 153.6 ml/min; Est GFR (African American) 122.3 ml/min; Est GFR (Non-African American) 105.5 ml/min; Potassium 3.6 mmol/L (3.5-5.1)
--- NOTE | 2021-11-08 12:59 | Hospitalist Progress Note ---
Date of Service November 08, 2021 Assessment & Plan (1) Syncope: Plan: -Appreciate Cardiology input, s/p Loop recorder placement 11/01. TTE results unremarkable: Normal LV wall thickness, LV wall motion is normal, LV systolic function is normal with EF 60 to 65%, mild tricuspid regurgitation, pulmonary artery systolic pressure is estimated to be 38 mmHg -Appreciate Neurology input, plan for 72 hour EEG as an outpatient -No more syncopal episode in the hospital -Has been doing well with PT and OT and will need to continue (2) Burst fracture of T12 vertebra: Plan: T12 thoracic fracture -s/p kyphoplasty 11/05 -continue multimodal pain control: tylenol 650mg TID, gabapentin 100mg BID, lidocaine patch, oxycodone 5-10mg Q 4PRN for mod-severe pain -Evaluated by PT and rehab is recommended -We will be going to [facility] this afternoon (3) Seizure disorder: Plan: History of seizure disorder -continue on trileptal 450mg BID, Keppra loading dose (now is 250mg BID), depakote ER 1000mg daily -No more episodes of seizure (4) History of pulmonary embolism: Plan: Distant history of PE/DVT -distant history of VTE. lower extremity u/s is negative for DVT -Eliquis has been held for surgery, resume when cleared by Ortho -Eliquis can safely be restarted Plan: Hyponatremia Hypochloremia -in setting of poor solid food intake due to missing dentures -will change to minced/moist diet -place on gentle IVF-- NSS at 100cc/hr x 24 hours -Sodium is reasonable at 132 and other electrolytes are unremarkable Disposition--Likely discharge tomorrow pending bed availability at [facility] and if patient feels better She will discharge [facility] afternoon Admission and Anticipated Discharge Date Admission Date: November 02, 2021 Subjective 11/08/2021 The patient was seen and examined in medical telemetry unit She has had physical therapy this morning and feels tired Denies any other symptoms She will be going [facility] afternoon Review of Systems Review of Systems: All systems reviewed and are unremarkable except as noted below Musculoskeletal: No acute arthritis in any joint Neurologic: Generally weak and lethargic Physical Exam Physical Exam: Lying in bed comfortably Constitutional: well developed, well nourished and + obese; not ill appearing Eyes: PERRL, conjunctivae normal, anicteric sclerae ENMT: external ear and nose normal, oropharynx normal Neck: trachea midline, no thyromegaly Respiratory: no respiratory distress Auscultation: + diminished lung sounds and + crackles (Minimal crackles at the bases) Gastrointestinal (Abdomen): Inspection/Auscultation: normal bowel sounds; abdomen not distended Percussion/Palpation: abdomen soft; abdomen nontender Musculoskeletal: No acute arthritis in any joint Neurologic: Alert, awake and oriented x3. Generally weak but no focal sensory or no motor deficit appreciated Results & Data Results & Data ([facility]) Vital Signs (Past 12 Hours) Vital Signs Temp Pulse Pulse Resp BP BP Pulse Ox 11/08/21 11:15 36.8 C 77 20 143/77 H 92 11/08/21 07:53 36.5 C 71 18 118/75 96 11/08/21 07:45 83 11/08/21 03:00 36.6 C 77 18 112/70 92 Laboratory Results Short CBC 11/08/21 Range/Units 08:38 WBC 4.20 L (4.8-10.8) K/uL Hgb 13.7 (12.0-16.0) g/dL Hct 39.1 (37-47) % Plt Count 249 (130-400) K/uL BMP 11/08/21 08:38 Sodium 132 L Potassium 3.6 Chloride 98 Carbon Dioxide 26 BUN 6 Creatinine 0.40 L Glucose 90 Calcium 8.7 Medications Administered Current Inpatient Medications Acetaminophen (Acetaminophen 325 Mg Tab) 650 mg PO TID SACHA Stop: 12/02/21 20:59 Last Admin: 11/08/21 09:00 Dose: 650 mg Documented by: Cyclobenzaprine HCl (Cyclobenzaprine Hcl 5 Mg Tab) 5 mg PO TID PRN PRN Reason: spasm Stop: 12/04/21 08:59 Last Admin: 11/08/21 09:01 Dose: 5 mg Documented by: Divalproex Sodium (Divalproex Extended Release 500 Mg Tab) 1,000 mg PO HS [facility] Stop: 12/01/21 01:34 Last Admin: 11/07/21 20:01 Dose: 1,000 mg Documented by: Gabapentin (Gabapentin 100 Mg Cap) 100 mg PO BID SACHA Stop: 12/02/21 20:59 Last Admin: 11/08/21 09:00 Dose: 100 mg Documented by: Promethazine HCl 12.5 mg/ (Sodium Chloride) 50.5 mls @ 202 mls/hr IV Q6H PRN PRN Reason: Nausea And Vomiting Stop: 12/01/21 00:46 Sodium Chloride (Nss 1000ml) 1,000 mls @ 100 mls/hr IV .Q10H [facility] Stop: 12/07/21 09:14 Last Admin: 11/08/21 07:22 Dose: 100 mls/hr Documented by: Levetiracetam (Levetiracetam 250 Mg Tab) 250 mg PO BID [facility] Stop: 12/02/21 20:59 Last Admin: 11/08/21 09:00 Dose: 250 mg Documented by: Levothyroxine Sodium (Levothyroxine Sodium 75 Mcg Tablet) 75 mcg PO DAILYBB [facility] Stop: 12/01/21 06:29 Last Admin: 11/08/21 06:23 Dose: 75 mcg Documented by: Lidocaine (Lidocaine 5% 1 Patch) 1 patch TD Q24H [facility] Stop: 11/30/21 23:14 Last Admin: 11/07/21 23:07 Dose: Not Given Documented by: Lorazepam (Lorazepam 2 Mg/1 Ml Vial) 1 mg IV Q10M PRN PRN Reason: active seizures Stop: 12/01/21 00:46 Melatonin (Melatonin 3 Mg Tab) 3 mg PO HS PRN PRN Reason: Sleep Stop: 12/01/21 19:16 Miconazole Nitrate (Miconazole Nitrate Powder 43 Gm) 1 appln EXT PRN PRN PRN Reason: Affected Skin Folds Stop: 12/01/21 18:53 Last Admin: 11/02/21 06:30 Dose: 1 appln Documented by: Miscellaneous (Remove Lidoderm Patch) 1 ea N/A Q24H [facility] Stop: 12/01/21 11:14 Last Admin: 11/08/21 12:03 Dose: Not Given Documented by: Morphine Sulfate (Morphine Sulfate 2 Mg/Ml Carp) 2 mg IV Q4H PRN PRN Reason: Pain Stop: 11/15/21 00:46 Last Admin: 11/02/21 10:35 Dose: 2 mg Documented by: Oxcarbazepine (Oxcarbazepine 150 Mg Tablet) 450 mg PO BID [facility] Stop: 12/02/21 20:59 Last Admin: 11/08/21 09:00 Dose: 450 mg Documented by: Oxycodone HCl (Oxycodone Hcl Ir 5 Mg Tab (Immediate Release)) 5 - 10 mg PO Q4 PRN PRN Reason: Pain Stop: 11/15/21 00:46 Last Admin: 11/08/21 09:03 Dose: 5 mg Documented by: Polyethylene Glycol (Polyethylene (Miralax) 17 Gm Pack) 17 gm PO DAILY [facility] Stop: 12/04/21 08:59 Last Admin: 11/08/21 09:02 Dose: Not Given Documented by: Saccharomyces Boulardii (Saccharomyces Boulardii 250 Mg Cap) 250 mg PO DAILY [facility] Stop: 12/04/21 08:59 Last Admin: 11/08/21 09:02 Dose: 250 mg Documented by: Sennosides (Senna 8.6 Mg Tab) 8.6 mg PO QAM [facility] Stop: 12/04/21 08:59 Last Admin: 11/08/21 09:01 Dose: 8.6 mg Documented by: Vitamin D (Cholecalciferol 5,000 Units 125 Mcg Tab) [facility] Stop: 12/06/21 08:59 Last Admin: 11/08/21 09:01 Dose: 5,000 units Documented by:
--- NOTE | 2021-11-08 18:10 | Discharge Summary ---
Date of Service November 08, 2021 Admission HPI Per Admitting Provider History obtained from patient and records. Medical history significant for chronic systolic heart failure (EF 40%, TTE 2020), hx PE DVT on Eliquis, FORREST on CPAP, epilepsy, mood disorder. Last confinement March 2021 breakthrough seizure. Trileptal dose increased on discharge. Patient has had recurrent syncopal events leading to falls for about a year now, possibly 6 episodes in the last year as per patient. Back surgery for orthopedic injury secondary to fall while visiting family in [place] in July 2021. Patient attributes syncopal events to uncontrolled seizures. No witnessed G TC seizures. No incontinence. Patient denies chest pain, S OB symptoms. messaged outpatient providers about concerns last week. Keppra added to patient's regimen. Dose to be increased gradually over a 3-week period. Patient seen at PCPs office yesterday. Outpatient Zio patch from 2020 showed many episodes of SVT of short duration considered to be normal as per outpatient documentation. Subtle orthostasis noted at the office. Outpatient TTE, cardio referral contemplated. This morning, patient woke up from her lift chair having wet herself. Patient walked towards the bathroom to change. Unwitnessed syncopal event leading to fall. Not preceded by dizziness, chest pain, S OB symptoms Patient woke up and could not get up. Achy headache and sore all over. No tongue biting. Patient wet herself on the floor because she could not get up. Family found her about 9 hours later after her got back from his [facility] appointment. Patient uncomfortable going home because of back pain. Medical History as above Surgical History : Subcutaneous tumor removal, BTL, lumbar kyphoplasty, tonsillectomy Family History : Dementia, colon cancer, COPD Personal/Social history : Non-smoker, no EtOH intake, retired [employer] employee Admission Exam Per Admitting Provider Physical Exam: GENERAL: Slightly uncomfortable, obese, no respiratory distress SKIN: Normal color, warm HEENT: Mears palpebral conjunctivae, no ptosis, dry buccal mucosa NECK : Supple, short neck, no tenderness CHEST : CTA, no tenderness HEART : RRR, no obvious murmurs ABDOMEN: Some distention, nontender BACK : Low back tenderness, limited straight leg raise test EXTREMITIES : Minimal LE swelling, no LE tenderness, no other conspicuous deformities noted NEUROLOGIC : Coherent, no facial asymmetry, gait and stance not assessed Principal Diagnosis Syncope, burst fracture of T12 vertebra status post kyphoplasty, seizure disorder, history of pulmonary embolism and DVT Discharge Exam Lying in bed comfortably Constitutional well developed, well nourished and + obese; not ill appearing Eyes PERRL, conjunctivae normal, anicteric sclerae ENMT external ear and nose normal, oropharynx normal Neck trachea midline, no thyromegaly Respiratory no respiratory distress Auscultation: + diminished lung sounds and + crackles (Minimal crackles at the bases) Gastrointestinal (Abdomen) Inspection/Auscultation: normal bowel sounds; abdomen not distended Percussion/Palpation: abdomen soft; abdomen nontender Discharge Data Allergies Allergy/AdvReac Type Severity Reaction Status Date / Time amoxicillin Allergy Rash Verified 10/31/21 22:41 Consultations 10/31/21 21:51 ED Decision to Admit Stat 10/31/21 22:14 Consult Orthopedic Surgery Routine ED Decision to Admit Stat 11/01/21 00:47 Consult Neurology Routine 11/01/21 05:51 Consult Cardiology Routine Procedures Performed Operation Date: 11/01/21 12:30 Actual Procedures p Implant Cardiac Event Recorder - Taurus Garcias MD Operation Date: 11/05/21 09:30 Actual Procedures p T12 Kyphoplasty(Not Applicable) - Kevin Carmen DO Ordered Studies 10/31/21 17:13 CT abd pelvis IV con only Stat CT cervical spine wo con Stat CT head/brain wo con Stat 10/31/21 18:01 CT lumbar spine w con Urgent 11/01/21 07:52 CT thoracic spine wo con Urgent 11/03/21 10:06 US venous doppler LE BI Routine 11/05/21 12:00 FL thoracic spine 2V Routine Hospital Course (1) Syncope: -Appreciate Cardiology input, s/p Loop recorder placement 11/01. TTE results unremarkable: Normal LV wall thickness, LV wall motion is normal, LV systolic function is normal with EF 60 to 65%, mild tricuspid regurgitation, pulmonary artery systolic pressure is estimated to be 38 mmHg -Appreciate Neurology input, plan for 72 hour EEG as an outpatient -No more syncopal episode in the hospital -Has been doing well with PT and OT and will need to continue (2) Burst fracture of T12 vertebra: T12 thoracic fracture -s/p kyphoplasty 11/05 -continue multimodal pain control: tylenol 650mg TID, gabapentin 100mg BID, lidocaine patch, oxycodone 5-10mg Q 4PRN for mod-severe pain -Evaluated by PT and rehab is recommended -[facility] (3) Seizure disorder: History of seizure disorder -continue on trileptal 450mg BID, Keppra loading dose (now is 250mg BID), depakote ER 1000mg daily -No more episodes of seizure (4) History of pulmonary embolism: Distant history of PE/DVT -distant history of VTE. lower extremity u/s is negative for DVT -Eliquis has been held for surgery, resume when cleared by Ortho -Eliquis can safely be restarted Hyponatremia Hypochloremia -in setting of poor solid food intake due to missing dentures -will change to minced/moist diet -place on gentle IVF-- NSS at 100cc/hr x 24 hours -Sodium is reasonable at 132 and other electrolytes are unremarkable Disposition--Likely discharge tomorrow pending bed availability at [facility] and if patient feels better She will [facility] Total Time Total Time Spent Total Time Spent (In Minutes): 35 minutes Discharge Plan Discharge Items Patient Disposition: Transfer Inpatient Rehab Fac Reason For Visit: SYNCOPE Discharge Diagnosis: Syncope, burst fracture of T12 vertebra status post kyphoplasty, seizure disorder, history of pulmonary embolism and DVT Condition on Discharge: Fair Activity: Resume your previous activity Non-emergency contact: Primary Care Provider Call non-emergency contact if: you have any medication questions and your symptoms worsen Follow-up/Referrals: Kiki Hay MD [Primary Care Provider] - (Please make an appointment with your PCP within 7 days following discharge from the facility) Diet: Heart Healthy Diet Comment: Minced and moist Addtl Attending Provider Instructions: Please take precautions to avoid falls Continue with PT and OT Take your medications as advised Please keep appointments with your healthcare provider Pending Studies at Discharge: No Stand-Alone Forms: My [facility] Skilled Items Patient informed of condition?: Yes DNR: No Discharge Level of Care: Acute rehab Communicable Disease: No Discharge Prognosis: Stable Lines: None Urinary Catheter: Yes Medications and DC Order Prescriptions: New lidocaine 5 % Adhesive Patch,Medicated 1 patch transdermal Q24H 30 Days Qty: 30 RF: 0 gabapentin 100 mg Capsule 100 mg PO BID 30 Days Qty: 60 RF: 0 oxycodone 5 mg Tablet 5 mg PO Q4 PRN (Reason: pain) 5 Days Qty: 15 RF: 0 cyclobenzaprine 5 mg Tablet 5 mg PO TID PRN (Reason: muscle spasm) 15 Days Qty: 30 RF: 0 cholecalciferol (vitamin D3) 125 mcg (5,000 unit) Tablet 5,000 unit PO QAM 30 Days Qty: 30 RF: 0 Continued oxcarbazepine 150 mg tablet 450 mg PO DAILY RF: 0 levetiracetam 500 mg tablet 250 mg PO HS RF: 0 acetaminophen [Tylenol Extra Strength] 500 mg Tablet 1,000 mg PO Q6H PRN (Reason: Pain) RF: 0 levothyroxine [Euthyrox] 75 mcg tablet 75 mcg PO DAILY RF: 0 divalproex 500 mg tablet extended release 24 hr 1,000 mg PO HS RF: 0 eszopiclone 2 mg tablet 2 mg PO HS RF: 0 Eliquis 5 mg tablet 5 mg PO BID RF: 0 Discharge Orders: Discharge Order (Routine); Ordered 11/08/21 Ordered By: Gabino Wiley Admission Data Admit Date/Time: 11/02/21 07:47 Attending Provider: Gabino Wiley Admit Provider: Kyle Montanez Primary Care Provider: Kiki Hay Other Providers: Kyle Montanez ; [facility] ; Kevin Carmen ; Loren Pérez ; Ravi Hutchison ; Loren Rudolph ; Julian Pham ; Israel Castro ; Сергей Kwan ; Aidan Motley ; Douglas Sorenson ; Valdo Valdez ; Jan Aburto ; Bria Talavera ; Loren Cerrato ; Rebeca Castro ; Minh Ybarra ; Randy Hartmann-Carlotta Other Interventions: Discharge Summary Assessment (RN) Last Done: 11/08/21 13:20
== END 2021-11-08 15:07 | DRG 478 ==
LOC: ED 16:12 → EDINP 16:12 → SUATTDRO 23:09 → 2N 11-01 11:11 → SUATTDRO 11-02 07:47
DX: Z98.51 Tubal ligation status; I47.1 Supraventricular tachycardia; F29 Unspecified psychosis not due to a substance or known physiological condition; R29.6 Repeated falls; I25.10 Atherosclerotic heart disease of native coronary artery without angina pectoris; W01.0XXA Fall on same level from slipping, tripping and stumbling without subsequent striking against object, initial encounter; Z86.718 Personal history of other venous thrombosis and embolism; S22.081A Stable burst fracture of T11-T12 vertebra, initial encounter for closed fracture; Z68.39 Body mass index [BMI] 39.0-39.9, adult; G47.33 Obstructive sleep apnea (adult) (pediatric); Z79.890 Hormone replacement therapy; E66.9 Obesity, unspecified; Z95.5 Presence of coronary angioplasty implant and graft; I50.22 Chronic systolic (congestive) heart failure; G89.29 Other chronic pain; Z86.711 Personal history of pulmonary embolism; E87.1 Hypo-osmolality and hyponatremia; G62.9 Polyneuropathy, unspecified; H91.90 Unspecified hearing loss, unspecified ear; Z79.01 Long term (current) use of anticoagulants; E03.9 Hypothyroidism, unspecified; G40.909 Epilepsy, unspecified, not intractable, without status epilepticus; Z88.0 Allergy status to penicillin; I25.5 Ischemic cardiomyopathy; Z90.09 Acquired absence of other part of head and neck; Y92.019 Unspecified place in single-family (private) house as the place of occurrence of the external cause; Y93.01 Activity, walking, marching and hiking; S32.10XA Unspecified fracture of sacrum, initial encounter for closed fracture

== ENCOUNTER 2022-04-12 07:15 | Inpatient (IN) ==
--- NOTE | 2022-04-12 07:31 | Emergency Department Note ---
Impression & Plan Fall, Closed compression fracture of L3 vertebra, Ambulatory dysfunction, Increased urinary frequency ED Provider Note Provider: Reyes Villanueva MD DATE OF SERVICE: 04/12/2022 CHIEF COMPLAINT: Fall, back pain, balance issues HISTORY OF PRESENT ILLNESS: Patient is a 71-year-old female history of skin cancer, DVT, hypothyroidism, and seizure presenting here today via ambulance reportedly has been having balance issues and suffered a fall today hurting her back. Evidently broke around 5:00 and was dizzy and suffered a fall. She denies striking her head complaining of some moderate lower back pain. Patient states she did have her walker but still fell backwards onto her bottom. Not strike her head. No longer on anticoagulation or aspirin at this point. Patient states she has not taken her morning medications including Tylenol. States he has chronic neuropathy of the lower legs. Denies injury to her other extremities. States her neck and upper back are low but shift but this is a common finding for her and not different. Patient states the dizziness seemed a bit worse this morning. She said continued ongoing urinary frequency. Treated for UTI last week and symptoms have not changed with antibiotic by her report. Denies blood or burning but going by her report a most every 1/2 hour. REVIEW OF SYSTEMS: A total of 10 review of systems was obtained and negative except as stated above in the HPI. PAST MEDICAL HISTORY: As noted above MEDICATIONS: Reviewed home medications includes Depakote as well as Keppra, no AC or ASA SOCIAL HISTORY: Lives at home, PHYSICAL EXAM: GENERAL: alert and oriented in no acute distress on stretcher Head: normocephalic and atraumatic EYES: No injection, discharge or icterus. NECK: Trachea midline. Supple. ENT: Mucous membranes pink and moist. LUNGS: Airway patent. No retractions. Breath sounds clear with good air entry bilaterally. HEART: Regular rate and rhythm. No chest wall tenderness ABDOMEN: Soft and non-tender, without guarding or rebound. BACK: Some mild diffuse lumbar tenderness without step-offs noted. SKIN: Acyanotic, warm, dry, without rashes EXTREMITIES: Without swelling, tenderness or deformity NEUROLOGICAL: No focal deficits. No aphasia. No facial droop or slurred speech. Normal strength and tone in the extremities. Gross sensation in all 4 extremities although somewhat diminished in the legs below the knees. EK bpm normal sinus rhythm. No PVC or PAC. No acute ST segment elevation or depression with a QTC of 414. CONTINUOUS CARDIAC MONITORING: was ordered and showed a heart rate of 70s bpm in NSR PDMP was checked without noted issue. GCS 15. Patient's laboratory studies and imaging reviewed. Differential includes Infection, dehydration, metabolic abnormality, hypo/hyp erglycemia, electrolyte disturbance, anemia, hypoxia, cardiac sources, intracerebral event, toxicologic, neurologic, as well as other pathologies. IMPRESSION/MEDICAL DECISION MAKING: Patient with ground-level fall onto buttocks no longer anticoagulation or aspirin at this point. Some pain in the low back and history of T12 kyphoplasty in the spring. Imaging of the spine completed here. Benign abdomen otherwise. No evidence of significant trauma to the other extremities. Denies significant head or neck pain at this point. Given the "balance issues "that she is experiencing I did complete a CT of the head. Not having significant focal deficit has been more chronic and I have a lower suspicion for acute CVA however. Was not on the ground for prolonged period but did check basic labs and an EKG. Given Tylenol for pain here initially. Blood work without a significant anemia or leukocytosis. Stable chronic mild hyponatremia of 133. No other significant electrolyte abnormality. No troponin elevation or CK elevation. No evidence of hepatitis based on laboratory studies. Urinalysis still pending collection. Small L3 compression fracture on the radiology imaging no other acute abnormalities of significance noted on the radiology reports. Discussed with the patient his pains improved some Tylenol her feelings about possibly going home. She fell today with her walker and is currently living at home alone. Has underlying neuropathy and feels she is fairly high fall risk. Discussed possible observation here and possible rehab needs. She discussed via phone with her son and wishes for this. Discussed with the hospitalist team. DIAGNOSIS: Fall, L3 compression fracture, urinary frequency, ambulatory dysfunction DISPOSITION: Hospitalist will evaluate Patient was agreeable with this plan. Past Med/Surg History Medical History Cancer SKIN CANCER Compression fracture Deep vein thrombosis Hallucination Hallucinations (05/29/11) Hearing deficit Hypothyroidism Hypothyroidism On home oxygen therapy [place] OXYGEN AT NIGHT (UNSURE OF LITER) Peripheral neuropathy Psychosis Pulmonary embolism Seizure LAST EPISODE (THIS YEAR/UNSURE OF DATE) ? SEIZURE TYPE>FOLLOWS WITH DR. PHOENIX. 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 Beliefs That Will Affect Care: None marital status: Current Living Situation: Spouse How many Children do You have: 5 Feels Safe at Home: Yes Assistive Devices: Walker Allergies Allergies Allergy/AdvReac Type Severity Reaction Status Date / Time amoxicillin Allergy Rash Verified 04/12/22 08:33 Home Meds Home Medications Medication Instructions Recorded Confirmed acetaminophen 500 mg tablet 1,000 mg PO Q6H PRN Pain 10/31/21 04/12/22 (Tylenol Extra Strength) divalproex 500 mg tablet,extended 1,000 mg PO HS 10/31/21 04/12/22 release 24 hr eszopiclone 2 mg tablet 2 mg PO HS 10/31/21 04/12/22 levetiracetam 500 mg tablet 250 mg PO HS 10/31/21 04/12/22 levothyroxine 75 mcg tablet 75 mcg PO DAILY 10/31/21 04/12/22 (Euthyrox) oxcarbazepine 150 mg tablet 450 mg PO DAILY 10/31/21 04/12/22 Results & Data (ED) Vital Signs Vital Signs - 24 hr 04/12/22 07:19 04/12/22 08:16 Temperature 37.0 C Temperature Source Oral Pulse Rate 75 Pulse Rate [Left Finger] 75 Pulse Rhythm Regular Pulse Rhythm [Left Finger] Regular Pulse Strength Normal Pulse Strength [Left Finger] Normal Respiratory Rate 18 19 Respiratory Effort / Characteristics Non-Labored Spontaneous Non-Labored Spontaneous Respiratory Depth Normal Normal Respiratory Pattern Regular Regular Blood Pressure 109/75 Blood Pressure [Right Arm] 153/109 H Blood Pressure Mean 86 Blood Pressure Mean [Right Arm] 123 Blood Pressure Position Sitting Blood Pressure Position [Right Arm] Lying Pulse Oximetry 98 95 Oxygen Delivery Method Room Air Room Air Sepsis Recent Fever Within 48 Hours No Sepsis New/Unexplained Change in Mental Status No Sepsis Action Taken by Nursing No Action Required Laboratory Data Result diagrams: 04/12/22 07:25 04/12/22 07:25 Lab Results 04/12/22 04/12/22 04/12/22 Range/Units 07:25 07:25 07:50 WBC 5.96 (4.8-10.8) K/ul RBC 4.48 (3.93-5.22) M/uL Hgb 14.4 (12.0-16.0) g/dl Hct 41.9 (34.1-44.9) % MCV 93.5 (80.0-100.0) fL MCH 32.1 (25.0-34.0) pg MCHC 34.4 (32.0-36.0) g/dL RDW Std Deviation 43.6 (36.4-46.3) fL RDW Coeff of Benigno 12.8 (11.5-14.5) % Plt Count 213 (130-400) K/uL MPV 9.4 (9.4-12.3) fL Immature Gran % (Auto) 0.7 % Neut % (Auto) 74.3 % Lymph % (Auto) 12.1 % Lee % (Auto) 10.4 % Eos % (Auto) 1.8 % Baso % (Auto) 0.7 % Neut # (Auto) 4.43 (1.4-6.5) K/uL Lymph # (Auto) 0.72 L (1.2-3.4) K/uL Lee # (Auto) 0.62 (0.24-0.82) K/uL Eos # (Auto) 0.11 (0-0.50) K/uL Baso # (Auto) 0.04 (0-0.2) K/uL Immature Gran # (Auto) 0.04 H (0.00-0.02) K/uL PT 11.2 (9.0-12.0) Seconds INR 1.1 (0.9-1.1) Sodium 133 L (136-145) mmol/L Potassium 4.0 (3.5-5.1) mmol/L Chloride 101 (98-107) mmol/L Carbon Dioxide 24 (21-32) mmol/L Anion Gap 8 (3-11) BUN 6 (6-23) mg/dl Creatinine 0.48 L (0.6-1.2) mg/dl Est Cr Clr Drug Dosing 136.5 ml/min Est GFR ( Amer) 115.2 ml/min Est GFR (Non-Af Amer) 99.4 ml/min BUN/Creatinine Ratio 12.5 (10-20) Glucose 97 (70-99(Fasting)) mg/dl Calcium 9.3 (8.5-10.1) mg/dl Magnesium 1.8 (1.7-2.4) mg/dl Total Bilirubin 0.5 (0.2-1.0) mg/dl AST 21 (13-39) U/L ALT 12 (7-52) U/L Alkaline Phosphatase 73 (34-104) U/L Total Creatine Kinase 54 (26-192) U/L Troponin I High Sens 5.9 (0-14) pg/ml Total Protein 7.0 (6.0-8.3) gm/dl Albumin 4.1 (3.4-5.0) gm/dl Globulin 2.9 (2.5-4.0) gm/dl Albumin/Globulin Ratio 1.4 (0.9-2) TSH (0.300-4.500) uIu/ml Valproic Acid (50-100) mcg/ml SARS-CoV-2, RNA, NAAT (NEGATIVE) 04/12/22 04/12/22 04/12/22 Range/Units 07:50 07:50 08:00 WBC (4.8-10.8) K/ul RBC (3.93-5.22) M/uL Hgb (12.0-16.0) g/dl Hct (34.1-44.9) % MCV (80.0-100.0) fL MCH (25.0-34.0) pg MCHC (32.0-36.0) g/dL RDW Std Deviation (36.4-46.3) fL RDW Coeff of Benigno (11.5-14.5) % Plt Count (130-400) K/uL MPV (9.4-12.3) fL Immature Gran % (Auto) % Neut % (Auto) % Lymph % (Auto) % Lee % (Auto) % Eos % (Auto) % Baso % (Auto) % Neut # (Auto) (1.4-6.5) K/uL Lymph # (Auto) (1.2-3.4) K/uL Lee # (Auto) (0.24-0.82) K/uL Eos # (Auto) (0-0.50) K/uL Baso # (Auto) (0-0.2) K/uL Immature Gran # (Auto) (0.00-0.02) K/uL PT (9.0-12.0) Seconds INR (0.9-1.1) Sodium (136-145) mmol/L Potassium (3.5-5.1) mmol/L Chloride (98-107) mmol/L Carbon Dioxide (21-32) mmol/L Anion Gap (3-11) BUN (6-23) mg/dl Creatinine (0.6-1.2) mg/dl Est Cr Clr Drug Dosing ml/min Est GFR ( Amer) ml/min Est GFR (Non-Af Amer) ml/min BUN/Creatinine Ratio (10-20) Glucose (70-99(Fasting)) mg/dl Calcium (8.5-10.1) mg/dl Magnesium (1.7-2.4) mg/dl Total Bilirubin (0.2-1.0) mg/dl AST (13-39) U/L ALT (7-52) U/L Alkaline Phosphatase (34-104) U/L Total Creatine Kinase (26-192) U/L Troponin I High Sens (0-14) pg/ml Total Protein (6.0-8.3) gm/dl Albumin (3.4-5.0) gm/dl Globulin (2.5-4.0) gm/dl Albumin/Globulin Ratio (0.9-2) TSH 4.428 (0.300-4.500) uIu/ml Valproic Acid 79 (50-100) mcg/ml SARS-CoV-2, RNA, NAAT NEGATIVE (NEGATIVE) Administered Medications Discontinued Medications Acetaminophen (Acetaminophen 500 Mg Tab) 1,000 mg PO NOW STA Stop: 04/12/22 07:44 Last Admin: 04/12/22 07:59 Dose: 1,000 mg Documented By: [facility] Imaging Data Radiologist's Impression: Chest X-Ray 04/12/22 07:30 SINGLE VIEW CHEST CLINICAL HISTORY: Fall. FINDINGS: An AP, portable, upright chest radiograph is compared to study dated 04/01/2022. Correlation is made with chest CT dated 11/12/2020. The heart is mildly enlarged noting atherosclerotic calcification of the thoracic aorta. The pulmonary vasculature is noncongested. The lungs and pleural spaces are clear 2. Mild bibasilar atelectasis. No pneumothorax is seen. The skeletal structures are osteopenic. The bony thorax is grossly intact. IMPRESSION: No active disease in the chest. ACT 112: Negative or not required by law. Electronically signed by: Janusz Casillas M.D. 04/12/2022 8:[address] 04/12/22 07:30 CT SCAN OF THE BRAIN WITHOUT IV CONTRAST CLINICAL HISTORY: Fall. Dizziness COMPARISON STUDY: CT of the brain dated 10/31/2021. TECHNIQUE: Unenhanced axial CT scan of the brain is performed from the vertex to the skull base. A dose lowering technique was utilized adhering to the principles of ALARA. FINDINGS: Brain parenchyma: There is age-related involutional change noting mild subcortical and periventricular microangiopathic disease. There is no hemorrhage, mass effect, or evidence of acute territorial ischemia by CT criteria. Mendoza-white matter differentiation is preserved. No extra-axial fluid collection is seen. Ventricles, sulci, cisterns: Prominent secondary to involutional change. Intracranial vasculature: There is atherosclerotic calcification of the cavernous carotid artery. Calvarium: The skeletal structures are osteopenic. No depressed calvarial fracture is identified. Sinuses and mastoids: The visualized paranasal sinuses are clear. The mastoid air cells are well pneumatized. Orbits: The bony orbits are grossly intact. There is a left ocular lens implant. IMPRESSION: There is no hemorrhage, mass effect, or evidence of acute territorial ischemia by CT criteria. ACT 112: Negative or not required by law. Electronically signed by: Janusz Casillas M.D. 04/12/2022 8:[address] 04/12/22 07:36 CT OF THE LUMBAR SPINE CLINICAL HISTORY: fall, low back pain COMPARISON STUDY: Lumbar spine CT October 31, 2021. TECHNIQUE: Helical axial images of the lumbar spine were obtained. Sagittal a nd coronal reconstructions were viewed. Automated exposure control was utilized for the study. A dose lowering technique was utilized adhering to the principles of ALARA. FINDINGS: For purposes of numbering on this exam, the L5-S1 disc space is assigned to axial image 237 of 418. Note is made of T12, L1 and L4 vertebroplasties. Old L2 compression fracture similar to CT of October 31, 2021. There is slight loss of height of the superior endplate of L3 which is new since prior CT this represents a mild compression fracture, likely acute. There is no retropulsion at this level. Central canal and neural foramen are suboptimally assessed given CT technique. Severe multilevel facet arthrosis is present. Moderate multilevel disc space narrowing with osteophytosis is present. Paravertebral soft tissues are unremarkable. IMPRESSION: 1. Mild L3 compression fracture, new since CT of October 31, 2021 and likely acute. 2. Multiple old compression fractures status post multilevel vertebroplasty, as described above. 3. Severe multilevel facet arthrosis within the lumbar spine. Moderate degenerative disc disease. ACT 112: Negative or not required by law. Electronically signed by: Adams Garcia M.D. 04/12/2022 8:39 AM Discharge Plan Visit Data Chief Complaint: Fall Stated Complaint: FALL, BACK PAIN, BALANCE ISSUES ED Provider: Reyes Villanueva Discharge Problem: Fall, Closed compression fracture of L3 vertebra, Ambulatory dysfunction, Increased urinary frequency Patient Disposition: Being Evaluated by Hospitalist Discharge Instructions Interventions: ED Discharge Assessment Last Done: 04/12/22 12:24 : Fall Qualifiers: Encounter type: initial encounter Qualified Code(s): W19.XXXA - Unspecified fall, initial encounter Closed compression fracture of L3 vertebra Qualifiers: Encounter type: initial encounter Qualified Code(s): S32.030A - Wedge compression fracture of third lumbar vertebra, initial encounter for closed fracture
[2022-04-12] MEDS ORDERED: ACETAMINOPHEN 500 MG TAB PO STA (07:43)
[2022-04-12 07:46] LABS: Basophils # (auto) 0.04 K/uL (0-0.2); Basophils % (auto) 0.7 %; Eosinophils # (auto) 0.11 K/uL (0-0.50); Eosinophils % (auto) 1.8 %; Hematocrit (blood only) 41.9 % (34.1-44.9); Hemoglobin 14.4 g/dl (12.0-16.0); Immature Granulocytes # (auto) 0.04 K/uL (0.00-0.02); Immature Granulocytes % (auto) 0.7 %; Lymphocytes # (auto) 0.72 K/uL (1.2-3.4); Lymphocytes % (auto) 12.1 %; Mean Corpuscular Hemoglobin 32.1 pg (25.0-34.0); Mean Corpuscular Hgb Conc 34.4 g/dL (32.0-36.0); Mean Corpuscular Volume 93.5 fL (80.0-100.0); Mean Platelet Volume 9.4 fL (9.4-12.3); Monocytes # (auto) 0.62 K/uL (0.24-0.82); Monocytes % (auto) 10.4 %; Neutrophils # (auto) 4.43 K/uL (1.4-6.5); Neutrophils % (auto) 74.3 %; Platelet Count 213 K/uL (130-400); RDW Coefficient of Variation 12.8 % (11.5-14.5); RDW Standard Deviation 43.6 fL (36.4-46.3); Red Blood Count 4.48 M/uL (3.93-5.22); White Blood Count 5.96 K/ul (4.8-10.8)
--- NOTE | 2022-04-12 07:50 | Communication Note ---
Date of Service: April 12, 2022 I saw this patient in conjunction with Dr. Villanueva. Please see Dr. Villanueva's note for more information. Rose Sher D.O. PGY-1 Resident Activity Tracking Resident Involvement: Resident Care Provided Care Provided: Adult ED
[2022-04-12 08:06] LABS: Albumin Globulin Ratio 1.4 (0.9-2); Albumin Level 4.1 gm/dl (3.4-5.0); BUN Creatinine Ratio 12.5 (10-20); Bilirubin,Total 0.5 mg/dl (0.2-1.0); Calcium 9.3 mg/dl (8.5-10.1); Creatinine Clr Calc Pharmacy 136.5 ml/min; Est GFR (African American) 115.2 ml/min; Est GFR (Non-African American) 99.4 ml/min; Globulin 2.9 gm/dl (2.5-4.0); Magnesium 1.8 mg/dl (1.7-2.4)
[2022-04-12 08:07] LABS: Troponin I High Sensitivity 5.9 pg/ml (0-14)
[2022-04-12 08:11] LABS: INR 1.1 (0.9-1.1); Prothrombin Time 11.2 Seconds (9.0-12.0)
--- NOTE | 2022-04-12 08:27 | XRay Report ---
SINGLE VIEW CHEST CLINICAL HISTORY: Fall. FINDINGS: An AP, portable, upright chest radiograph is compared to study dated 04/01/2022. Correlation is made with chest CT dated 11/12/2020. The heart is mildly enlarged noting atherosclerotic calcificat ion of the thoracic aorta. The pulmonary vasculature is noncongested. The lungs and pleural spaces ar e clear 2. Mild bibasilar atelectasis. No pneumothorax is seen. The skeletal structures are osteopenic. The b rio thorax is grossly intact. IMPRESSION: No active disease in the chest. ACT 112: Negative or not required by law. Electronically signed by: Janusz Casillas M.D. 04/12/2022 8:26 AM
--- NOTE | 2022-04-12 08:37 | CT Scan Report ---
CT SCAN OF THE BRAIN WITHOUT IV CONTRAST CLINICAL HISTORY: Fall. Dizziness COMPARISON STUDY: CT of the brain dated 10/31/2021. TECHNIQUE: Unenhanced axial CT scan of the brain is performed from the vertex to the skull base. A do se lowering technique was utilized adhering to the principles of ALARA. FINDINGS: Brain parenchyma: There is age-related involutional change noting mild subcortical and periventricula r microangiopathic disease. There is no hemorrhage, mass effect, or evidence of acute territorial isc hemia by CT criteria. Mendoza-white matter differentiation is preserved. No extra-axial fluid collection is seen. Ventricles, sulci, cisterns: Prominent secondary to involutional change. Intracranial vasculature: There is atherosclerotic calcification of the cavernous carotid artery. Calvarium: The skeletal structures are osteopenic. No depressed calvarial fracture is identified. Sinuses and mastoids: The visualized paranasal sinuses are clear. The mastoid air cells are well pneu matized. Orbits: The bony orbits are grossly intact. There is a left ocular lens implant. IMPRESSION: There is no hemorrhage, mass effect, or evidence of acute territorial ischemia by CT alex vargas. ACT 112: Negative or not required by law. Electronically signed by: Janusz Casillas M.D. 04/12/2022 8:36 AM
--- NOTE | 2022-04-12 08:41 | CT Scan Report ---
CT OF THE LUMBAR SPINE CLINICAL HISTORY: fall, low back pain COMPARISON STUDY: Lumbar spine CT October 31, 2021. TECHNIQUE: Helical axial images of the lumbar spine were obtained. Sagittal and coronal reconstruct ions were viewed. Automated exposure control was utilized for the study. A dose lowering technique was utilized adhering to the principles of ALARA. FINDINGS: For purposes of numbering on this exam, the L5-S1 disc space is assigned to axial image 237 of 418. Note is made of T12, L1 and L4 vertebroplasties. Old L2 compression fracture similar to CT o f October 31, 2021. There is slight loss of height of the superior endplate of L3 which is new since pr ior CT this represents a mild compression fracture, likely acute. There is no retropulsion at this le jessi. Central canal and neural foramen are suboptimally assessed given CT technique. Severe multilevel facet arthrosis is present. Moderate multilevel disc space narrowing with osteophytosis is present. Paravertebral soft tissues are unremarkable. IMPRESSION: 1. Mild L3 compression fracture, new since CT of October 31, 2021 and likely acute. 2. Multiple old compression fractures status post multilevel vertebroplasty, as described above. 3. Severe multilevel facet arthrosis within the lumbar spine. Moderate degenerative disc disease. ACT 112: Negative or not required by law. Electronically signed by: Adams Garcia M.D. 04/12/2022 8:39 AM
--- NOTE | 2022-04-12 09:58 | History & Physical Report ---
Date of Service April 12, 2022 Assessment & Plan (1) Compression fracture: (2) Fall: (3) Ambulatory dysfunction: (4) Seizure disorder: (5) Hypothyroidism: (6) Peripheral neuropathy: Plan Ms. Shah is a 71 year old female who presenting wit multiple falls. Pt with three falls over past year. L3 compression fx found today with multiple old compression fractures. Pt has had a T12 kyphoplasty with Dr. Carmen in past. Pt has H/O seizures, sees Dr. Pérez; stable and takes Keppra, Trileptal, Depakote. Pt will be admitted for pain control and observation. Fall Ambulatory Dysfunction: Compression Fracture: Continued balance issues over the past year; 3 falls reported Uses a walker for ambulatory assistance H/O T12 burst fracture s/p T12 kyphoplasty with Dr. Carmen lumbar spine CT: New mild L3 compression fracture. Multiple old compression fr acture status post multilevel vertebroplasty. Responded well with Tylenol; will continue PRN; conservative treatment Consider ortho eval and DEXA scan for OP OPT for f/u. Last DEXA was 02/2017. Zscore: -2.2 in femoral neck. Takes Calcium and D3; continue. May consider biphosphonate therapy like alendronate or Prolia Peripheral Neuropathy: States neuropathy contributes to her falls. Takes Gabapentin 100 mg PO BID; will increase to 300 mg TID. Seizure Disorder: Stable without focal deficit. last seizure was in 07/2021. Follows Artur Pérez PA-C. Last appt 03/01/[address] Takes Keppra, Trileptal, Depakote with doses as indicated. Valproic Acid level normal Oxycarbazepine level pending LFTs pending Hypothyroidism: Stable; continue Synthroid TSH on 11/12/21: 2.78 Disposition: PCP: Dr. Hay Code Status: Full Code VTE Prophlyaxis: Heparin SQ Plan to return home post discharge; consider case management involvement for safety measures; additional home support. History of Present Illness Chief Complaint: falls Primary Care Provider: Kiki Hay MD Ms. Shah is a 71 year old female who presented to the [facility] via EMS after pressing her life alert. Pt was getting up in the middle of the night and fell on her bottom. She denies LOC or hitting her head. She reports using her walker typically. Pt denies RIBERA, dizziness, CP, palpitations, N/V/D. She reports a dry cough over the last week, but is vaccinated against covid and has had two boosters. She reports having an episode of diarrhea over the past week once or twice during the day. PMH includes: ambulatory dysfunction, syncope, hypothyroidism, seizure disorder, FORREST, SVT with her walker going to the bathroom. She denies hitting her head. Shes currently at home alone and her is currently admitted at the hospital; hence why she will stay here for overnight. A lumbar X-ray was obtained and results indicated that she has a L3 compression fracture. Patient has received Tylenol and stated that has helped her pain. Patient will be admitted for continued evaluation and management. Please see A/P for further details. Allergies Allergy/AdvReac Type Severity Reaction Status Date / Time amoxicillin Allergy Rash Verified 04/12/22 08:33 Home Medications Medication Instructions Recorded Confirmed Type acetaminophen 500 mg tablet 1,000 mg PO Q6H PRN Pain 10/31/21 04/12/22 History (Tylenol Extra Strength) divalproex 500 mg tablet,extended 1,000 mg PO HS 10/31/21 04/12/22 History release 24 hr eszopiclone 2 mg tablet 2 mg PO HS 10/31/21 04/12/22 History levetiracetam 500 mg tablet 250 mg PO HS 10/31/21 04/12/22 History levothyroxine 75 mcg tablet 75 mcg PO DAILY 10/31/21 04/12/22 History (Euthyrox) oxcarbazepine 150 mg tablet 450 mg PO DAILY 10/31/21 04/12/22 History Past Med/Surg History Medical History Cancer SKIN CANCER Compression fracture Deep vein thrombosis Hallucination Hallucinations (05/29/11) Hearing deficit Hypothyroidism Hypothyroidism On home oxygen therapy [place] OXYGEN AT NIGHT (UNSURE OF LITER) Peripheral neuropathy Psychosis Pulmonary embolism Seizure LAST EPISODE (THIS YEAR/UNSURE OF DATE) ? SEIZURE TYPE>FOLLOWS WITH DR. PHOENIX. OLD RECORDS NOTE EPILEPSY Seizure disorder Sleep apnea NO DEVICE USED NOW (CPAP USED IN PAST) Witnessed seizure-like activity Surgical History History of adenoidectomy History of bilateral tubal ligation History of colonoscopy History of tonsillectomy History of tooth extraction Family History Mother Family hx of colon cancer Social History Smoking Status: Never smoker Second Hand Exposure: Yes (Family members smoked during childhood); Do You Dip or Chew Tobacco: No; Tobacco Cessation Education Requested by Patient: No Hx Alcohol Use: No Hx Substance Use: No Preferred Language: Slovak Communication Ability: Effective Depalletizer Operator Required: No Beliefs That Will Affect Care: None marital status: Current Living Situation: Spouse Current Living Situation Comment: Spouse is also hospitalized here at [facility] How many Children do You have: 5 Other Information That Helps Us Care for You: No Feels Safe at Home: Yes Safety Concerns: Feels Safe At This Time Assistive Devices: Stair Lift and Walker Assistive Devices Comment: glasses and hearing aids with patient Review of Systems Review of Systems: Neuro: (+) Falls (three over the past year), (+) trauma, (- ) speech changes. HEENT: (-) RIBERA, dizziness, dysphagia, visual or auditory changes CV: (-) CP, palpitations, swelling Resp: (-) SOB GI: (-) appetite changes, N/V/D, bowel changes : (-) urinary changes Skin: (-) rashes Psych: (-) anxiety, depression Physical Exam Physical Exam: Neuro: AAOx4, PERRLA, no aphagia, memory changes, CNII-XII grossly intact HEENT: head normocephalic, moist mucus membranes CV: S1/S2, (-) M/G/R, (-) edema, cap refill < 3 seconds Resp: Lungs CTA in all ruiz. On RA GI: Abdomen S/NT/ND, Ax4 bowel sounds, (-) CVA tenderness Musculoskeletal: 5/5 B/L UE strength, 5/5 B/L LE strength. Uses a walker assist device Skin: (-) rashes , (-) erythema. Psych: euthymic mood Results & Data Results & Data ([facility]) Vital Signs (Past 12 Hours) Vital Signs Temp Pulse Pulse Resp BP BP Pulse Ox 04/12/22 08:16 75 19 153/109 H 95 04/12/22 07:19 37.0 C 75 18 109/75 98 O2 Del Method 04/12/22 08:16 Room Air 04/12/22 07:19 Room Air Laboratory Results Short CBC 04/12/22 Range/Units 07:25 WBC 5.96 (4.8-10.8) K/ul Hgb 14.4 (12.0-16.0) g/dl Hct 41.9 (34.1-44.9) % Plt Count 213 (130-400) K/uL BMP 04/12/22 07:25 Sodium 133 L Potassium 4.0 Chloride 101 Carbon Dioxide 24 BUN 6 Creatinine 0.48 L Glucose 97 Calcium 9.3 Cardiac Enzymes 04/12/22 Range/Units 07:25 Total Creatine Kinase 54 (26-192) U/L Liver Function 04/12/22 Range/Units 07:25 Total Bilirubin 0.5 (0.2-1.0) mg/dl AST 21 (13-39) U/L ALT 12 (7-52) U/L Alkaline Phosphatase 73 (34-104) U/L Albumin 4.1 (3.4-5.0) gm/dl Urine 04/12/22 Range/Units 10:08 Urine Color Yellow Urine Appearance Clear (Clear) Urine pH 6.5 (4.5-7.5) Ur Specific [place] 1.018 (1.000-1.030) Urine Protein Trace H (Negative) Urine Glucose (UA) Negative (Negative) Diagnostic Findings Chest X-Ray 04/12/22 07:30 SINGLE VIEW CHEST CLINICAL HISTORY: Fall. FINDINGS: An AP, portable, upright chest radiograph is compared to study dated 04/01/2022. Correlation is made with chest CT dated 11/12/2020. The heart is mildly enlarged noting atherosclerotic calcification of the thoracic aorta. The pulmonary vasculature is noncongested. The lungs and pleural spaces are clear 2. Mild bibasilar atelectasis. No pneumothorax is seen. The skeletal structures are osteopenic. The bony thorax is grossly intact. IMPRESSION: No active disease in the chest. ACT 112: Negative or not required by law. Electronically signed by: Janusz Casillas M.D. 04/12/2022 8:[address] 04/12/22 07:30 CT SCAN OF THE BRAIN WITHOUT IV CONTRAST CLINICAL HISTORY: Fall. Dizziness COMPARISON STUDY: CT of the brain dated 10/31/2021. TECHNIQUE: Unenhanced axial CT scan of the brain is performed from the vertex to the skull base. A dose lowering technique was utilized adhering to the principles of ALARA. FINDINGS: Brain parenchyma: There is age-related involutional change noting mild subcortical and periventricular microangiopathic disease. There is no hemorrhage, mass effect, or evidence of acute territorial ischemia by CT criteria. Mendoza-white matter differentiation is preserved. No extra-axial fluid collection is seen. Ventricles, sulci, cisterns: Prominent secondary to involutional change. Intracranial vasculature: There is atherosclerotic calcification of the cavernous carotid artery. Calvarium: The skeletal structures are osteopenic. No depressed calvarial fracture is identified. Sinuses and mastoids: The visualized paranasal sinuses are clear. The mastoid air cells are well pneumatized. Orbits: The bony orbits are grossly intact. There is a left ocular lens implant. IMPRESSION: There is no hemorrhage, mass effect, or evidence of acute territorial ischemia by CT criteria. ACT 112: Negative or not required by law. Electronically signed by: Janusz Casillas M.D. 04/12/2022 8:[address] 04/12/22 07:36 CT OF THE LUMBAR SPINE CLINICAL HISTORY: fall, low back pain COMPARISON STUDY: Lumbar spine CT October 31, 2021. TECHNIQUE: Helical axial images of the lumbar spine were obtained. Sagittal and coronal reconstructions were viewed. Automated exposure control was utilized for the study. A dose lowering technique was utilized adhering to the principles of ALARA. FINDINGS: For purposes of numbering on this exam, the L5-S1 disc space is assigned to axial image 237 of 418. Note is made of T12, L1 and L4 vertebroplasties. Old L2 compression fracture similar to CT of October 31, 2021. There is slight loss of height of the superior endplate of L3 which is new since prior CT this represents a mild compression fracture, likely acute. There is no retropulsion at this level. Central canal and neural foramen are suboptimally assessed given CT technique. Severe multilevel facet arthrosis is present. Moderate multilevel disc space narrowing with osteophytosis is present. Paravertebral soft tissues are unremarkable. IMPRESSION: 1. Mild L3 compression fracture, new since CT of October 31, 2021 and likely acute. 2. Multiple old compression fractures status post multilevel vertebroplasty, as described above. 3. Severe multilevel facet arthrosis within the lumbar spine. Moderate degenerative disc disease. ACT 112: Negative or not required by law. Electronically signed by: Adams Garcia M.D. 04/12/2022 8:39 AM Code Status & VTE Plan Code Status Full code in the event of cardiac or respiratory arrest VTE Prophylaxis Plan VTE Prophylaxis will be ordered: Yes Supervising Physician Co-Signing Physician Notes 71-year-old lady with PMH of T12 burst fracture status post T12 kyphoplasty, FORREST on CPAP, lumbar degenerative disc disease, epilepsy, PE/DVT not on anticoagulation, recurrent falls presented to our ED 04/12 with complaint of fall while trying to get on the bed in the morning of the day of arrival. Patient reports hitting her buttocks, denies any chest pain/palpitations/dizziness/fall surrounding the event. Patient denies any trauma to her head. Patient reports increasing lower back pain after coming to the hospital. Patient denies any fever/chills/chest pain/palpitations/belly pain/acute changes in her bowel or bladder habits lately. Admitting CXR/head CT: No new acute findings Admitting lumbar spine CT: New mild L3 compression fracture. Multiple old compression fracture status post multilevel vertebroplasty. Labs reviewed, fairly WNL, valproic level WNL. PT/OT, pain management, consider orthospine eval as an outpatient for now, if with increasing pain while inpatient may consider inpatient consult. CM to assist with DC planning, patient will likely need rehab. Continue with seizure medication, patient reports her last seizure between April and July of last year. Upon examination: GENERAL: Alert and oriented x3. NAD, on RA. Class II obese HEENT: No pallor, no icterus. Pupils equal, round and reactive to light. Oral mucosa moist. NECK: No JVD, no neck masses. HEART: S1 and S2 heard. Regular rate and rhythm. No murmur, no gallop. RESPIRATORY SYSTEM: Normal AP diameter. No accessory muscle use. No wheezing, no crackles. ABDOMEN: Soft, bowel sounds present, nontender, no distention. CENTRAL NERVOUS SYSTEM: No facial droop. Speech is clear. Obeys simple commands. Moves extremities. EXTREMITIES: Trace BLE edema, LLE with chronic skin changes. I have seen and examined the patient and have discussed the case with the provider above. I agree with the assessment and plan as stated. (1) Fall Encounter type: initial encounter Qualified Code(s): W19.XXXA - Unspecified fall, initial encounter
[2022-04-12 10:41] LABS: Appearance Urine Clear (Clear); Bacteria Urine Automated Negative (Negative); Bilirubin Urine Negative (Negative); Blood Urine Negative (Negative); Color Urine Yellow; Epithelial Cell Urine Auto 20-30 /lpf (0-5); Glucose Urine UA Negative (Negative); Ketones Urine 2+ (Negative); Leukocyte Esterase Urine Trace (Negative); Nitrite Urine Negative (Negative); Protein Urine Trace (Negative); RBC Urine Automated 0-4 /hpf (0-4); Specific Gravity Urine 1.018 (1.000-1.030); Urobilinogen Urine Negative (Negative); pH Urine 6.5 (4.5-7.5)
[2022-04-12 13:49] LABS: Albumin Level 3.9 gm/dl (3.4-5.0); Bilirubin Direct 0.1 mg/dl (0-0.2); Bilirubin,Total 0.5 mg/dl (0.2-1.0); Total Protein 6.6 gm/dl (6.0-8.3)
--- NOTE | 2022-04-12 15:01 | Electrocardiogram Report ---
Test Reason : Blood Pressure : / mmHG Vent. Rate : 076 BPM Atrial Rate : 076 BPM P-R Int : 200 ms QRS Dur : 072 ms QT Int : 368 ms P-R-T Axes : 027 007 012 degrees QTc Int : 414 ms Normal sinus rhythm Low voltage QRS Borderline ECG When compared with ECG of 01-APR-2022 11:01, No significant change was found Confirmed by Taurus Garcias ([id number]) on 04/12/2022 3:01:00 PM Referred By: REFERRED SELF Confirmed By:Carlito Garcias
[2022-04-12] MEDS: HEPARIN SOD 5,000 UNIT/0.5 ML VIAL SQ SCH ×2 (15:30→20:08)
[2022-04-12] MEDS: GABAPENTIN 300 MG CAP PO SCH ×2 (15:30→20:04)
[2022-04-12] MEDS: ACETAMINOPHEN 500 MG TAB PO PRN (17:22)
[2022-04-12] MEDS: oxyCODONE HCL IR 5 MG TAB (IMMEDIATE RELEASE) PO PRN (17:34)
[2022-04-12] MEDS: levETIRAcetam 500 MG TAB PO SCH (20:03)
[2022-04-12] MEDS: CALCIUM 600MG + VIT D 400 IU TAB PO SCH (20:03)
[2022-04-12] MEDS: DIVALPROEX EXTENDED RELEASE 500 MG TAB PO SCH (20:04)
[2022-04-12] MEDS: OXcarbazepine 150 MG TABLET PO SCH (20:04)
[2022-04-12] MEDS: ESZOPICLONE 1 MG TAB PO SCH (20:08)
[2022-04-12] MEDS ORDERED: levETIRAcetam 250 MG TAB PO SCH (21:00)
[2022-04-13] MEDS: oxyCODONE HCL IR 5 MG TAB (IMMEDIATE RELEASE) PO PRN ×3 (00:59→18:17)
[2022-04-13] MEDS: ACETAMINOPHEN 500 MG TAB PO PRN ×2 (01:00→08:10)
[2022-04-13] MEDS: LEVOTHYROXINE SODIUM 75 MCG TABLET PO SCH (06:28)
[2022-04-13] MEDS: HEPARIN SOD 5,000 UNIT/0.5 ML VIAL SQ SCH ×3 (06:28→21:21)
[2022-04-13 07:46] LABS: Hematocrit (blood only) 38.6 % (34.1-44.9); Hemoglobin 13.5 g/dl (12.0-16.0); Mean Corpuscular Hemoglobin 32.7 pg (25.0-34.0); Mean Corpuscular Volume 93.5 fL (80.0-100.0); Mean Platelet Volume 9.5 fL (9.4-12.3); Platelet Count 186 K/uL (130-400); RDW Coefficient of Variation 12.8 % (11.5-14.5); RDW Standard Deviation 43.9 fL (36.4-46.3); Red Blood Count 4.13 M/uL (3.93-5.22); White Blood Count 4.86 K/ul (4.8-10.8)
[2022-04-13] MEDS: CALCIUM 600MG + VIT D 400 IU TAB PO SCH ×2 (08:12→20:25)
[2022-04-13] MEDS: levETIRAcetam 500 MG TAB PO SCH ×2 (08:12→20:26)
[2022-04-13] MEDS: OXcarbazepine 150 MG TABLET PO SCH ×2 (08:12→20:26)
[2022-04-13] MEDS: GABAPENTIN 100 MG CAP PO SCH ×3 (08:13→20:26)
[2022-04-13 08:16] LABS: BUN Creatinine Ratio 21.3 (10-20); Calcium 8.7 mg/dl (8.5-10.1); Creatinine Clr Calc Pharmacy 128.5 ml/min; Est GFR (Non-African American) 100.1 ml/min; Potassium 3.9 mmol/L (3.5-5.1)
--- NOTE | 2022-04-13 14:10 | Hospitalist Progress Note ---
Date of Service April 13, 2022 Assessment & Plan (1) Compression fracture: (2) Fall: (3) Ambulatory dysfunction: (4) Seizure disorder: (5) Hypothyroidism: (6) Peripheral neuropathy: Plan Ms. Shah is a 71 year old female who presenting wit multiple falls. Pt with three falls over past year. L3 compression fx found today with multiple old compression fractures. Pt has had a T12 kyphoplasty with Dr. Carmen in past. Pt has H/O seizures, sees Dr. Pérez; stable and takes Keppra, Trileptal, Depakote. Pt will be admitted for pain control and observation. Fall Ambulatory Dysfunction: Compression Fracture: Continued balance issues over the past year; 3 falls reported without any loss of consciousness Uses a walker for ambulatory assistance H/O T12 burst fracture s/p T12 kyphoplasty with Dr. Carmen lumbar spine CT: New mild L3 compression fracture. Multiple old compression fracture status post multilevel vertebroplasty. Responded well with Tylenol; will continue PRN; conservative treatment Consider ortho eval and DEXA scan for OP OPT for f/u. Last DEXA was 02/2017. Zscore: -2.2 in femoral neck. Takes Calcium and D3; continue. May consider biphosphonate therapy like alendronate or Prolia Complains of persistence of pain and wants to have Ortho evaluation for possible surgery Dr. Carmen consulted Peripheral Neuropathy: States neuropathy contributes to her falls. Takes Gabapentin 100 mg PO BID; will increase to 300 mg TID. No new symptoms of neuropathy Seizure Disorder: Stable without focal deficit. last seizure was in 07/2021. Follows Artur Pérez PA-C. Last appt 03/01/[address] Takes Keppra, Trileptal, Depakote with doses as indicated. Valproic Acid level normal Oxycarbazepine level pending LFTs pending-pertinent normal No evidence of seizure since admission Hypothyroidism: Stable; continue Synthroid TSH on 11/12/21: 2.78 Disposition: PCP: Dr. Hay Code Status: Full Code VTE Prophlyaxis: Heparin SQ Plan to return home post discharge; consider case management involvement for safety measures; additional home support. Admission and Anticipated Discharge Date Admission Date: April 12, 2022 Subjective 04/13/2022 The patient was seen and examined in medical floor She was admitted with history of falls and ongoing back pain Still complains of pain at the lower back without any radiation and any problem with her urine and or bowel habit She wants to see orthopedic surgeon as she has had multiple prior back surgery Review of Systems Review of Systems: All systems reviewed and are unremarkable except as noted below Musculoskeletal: Lower back pain without any radiation Physical Exam Physical Exam: Lying in bed with minimal distress due to ongoing back pain Constitutional: well developed, well nourished, + ill appearing and + obese Eyes: PERRL, conjunctivae normal, anicteric sclerae ENMT: external ear and nose normal, oropharynx normal Neck: trachea midline, no thyromegaly Respiratory: no respiratory distress Auscultation: + diminished lung sounds and + crackles (Minimal crackles at the bases) Cardiovascular: Rate/Rhythm: regular rate and regular rhythm; not tachycardic Heart Sounds: normal S1 and normal S2; no murmur Extremities: + edema (Trace edema bilaterally) Gastrointestinal (Abdomen): Inspection/Auscultation: normal bowel sounds; abdomen not distended Percussion/Palpation: abdomen soft; abdomen nontender Musculoskeletal: Low back pain with tenderness to the lower lumbar spine Neurologic: Alert, awake and oriented x3. Generally weak but no focal sensory or no motor deficit appreciated Lymphatic: no cervical or axillary lymphadenopathy Results & Data Results & Data ([facility]) Vital Signs (Past 12 Hours) Vital Signs Temp Pulse Resp BP Pulse Ox O2 Del Method 04/13/22 07:22 36.7 C 80 16 112/76 95 Room Air Laboratory Results Short CBC 04/13/22 Range/Units 07:25 WBC 4.86 (4.8-10.8) K/ul Hgb 13.5 (12.0-16.0) g/dl Hct 38.6 (34.1-44.9) % Plt Count 186 (130-400) K/uL BMP 04/13/22 07:25 Sodium 134 L Potassium 3.9 Chloride 102 Carbon Dioxide 25 BUN 10 Creatinine 0.47 L Glucose 90 Calcium 8.7 Medications Administered Current Inpatient Medications Acetaminophen (Acetaminophen 500 Mg Tab) 1,000 mg PO Q6H PRN PRN Reason: Pain Stop: 05/12/22 12:37 Last Admin: 04/13/22 08:10 Dose: 1,000 mg Divalproex Sodium (Divalproex Extended Release 500 Mg Tab) 1,000 mg PO HS SACHA Stop: 05/12/22 20:59 Last Admin: 04/12/22 20:04 Dose: 1,000 mg Eszopiclone (Eszopiclone 1 Mg Tab) 2 mg PO HSZ SACHA Stop: 05/12/22 21:59 Last Admin: 04/12/22 20:08 Dose: Not Given Gabapentin (Gabapentin 100 Mg Cap) 200 mg PO TID SACHA Stop: 05/13/22 08:59 Last Admin: 04/13/22 08:13 Dose: 200 mg Heparin Sodium (Porcine) (Heparin Sod 5,000 Unit/0.5 Ml Vial) 5,000 units SQ Q8 SACHA Stop: 05/12/22 13:59 Last Admin: 04/13/22 06:28 Dose: 5,000 units Levetiracetam (Levetiracetam 500 Mg Tab) 500 mg PO BID SACHA Stop: 05/12/22 20:59 Last Admin: 04/13/22 08:12 Dose: 500 mg Levothyroxine Sodium (Levothyroxine Sodium 75 Mcg Tablet) 75 mcg PO DAILYBB SACHA Stop: 05/13/22 06:29 Last Admin: 04/13/22 06:28 Dose: 75 mcg Multivitamins/Minerals (Calcium 600mg + Vit D 400 Iu Tab) 1 tab PO BID SACHA Stop: 05/12/22 20:59 Last Admin: 04/13/22 08:12 Dose: 1 tab Oxcarbazepine (Oxcarbazepine 150 Mg Tablet) 450 mg PO BID SACHA Stop: 05/12/22 20:59 Last Admin: 04/13/22 08:12 Dose: 450 mg Oxycodone HCl (Oxycodone Hcl Ir 5 Mg Tab (Immediate Release)) 5 mg PO Q6H PRN PRN Reason: Severe Pain Stop: 04/26/22 17:20 Last Admin: 04/13/22 08:07 Dose: 5 mg (1) Fall Encounter type: initial encounter Qualified Code(s): W19.XXXA - Unspecified fall, initial encounter
[2022-04-13] MEDS: DIVALPROEX EXTENDED RELEASE 500 MG TAB PO SCH (20:25)
[2022-04-13] MEDS: ESZOPICLONE 1 MG TAB PO SCH (20:40)
[2022-04-14] MEDS: oxyCODONE HCL IR 5 MG TAB (IMMEDIATE RELEASE) PO PRN ×3 (02:19→20:36)
[2022-04-14] MEDS: LEVOTHYROXINE SODIUM 75 MCG TABLET PO SCH (05:37)
[2022-04-14] MEDS: HEPARIN SOD 5,000 UNIT/0.5 ML VIAL SQ SCH ×3 (05:37→20:21)
--- NOTE | 2022-04-14 08:04 | Orthopedic Consultation ---
Date of Consultation April 14, 2022 Assessment & Plan (1) Closed compression fracture of L3 vertebra: Patient is a new L3 compression deformity. She is having significant pain at this point. We will continue with oxycodone for pain control. We will see if she can mobilize with physical therapy. She may be a candidate for kyphoplasty if she does not start to improve. I will discussed the findings with Dr. Carmen and make that determination later this week. History of Present Illness Attending Physician: Gabino Wiley MD History of Present Illness Patient was seen bedside in room 351. She states that she had been going to the bathroom at approximately 2:00 in the morning and sat down abruptly onto the toilet. She felt increasing pain in her back and presented to the emergency room. The pain is quite intense at this point. So located in the lower portion of her back nothing going down the legs. She denies any other numbness, tingling, or paresthesias. CT scan been performed which revealed a new L3 compression deformity. She has history seen for previous kyphoplasty's due to compression fractures. Allergies Allergy/AdvReac Type Severity Reaction Status Date / Time amoxicillin Allergy Rash Verified 04/12/22 08:33 Home Medications Medication Instructions Recorded Confirmed Type acetaminophen 500 mg tablet 1,000 mg PO Q6H PRN Pain 10/31/21 04/12/22 History (Tylenol Extra Strength) divalproex 500 mg tablet,extended 1,000 mg PO HS 10/31/21 04/12/22 History release 24 hr eszopiclone 2 mg tablet 2 mg PO HS 10/31/21 04/12/22 History levetiracetam 500 mg tablet 250 mg PO HS 10/31/21 04/12/22 History levothyroxine 75 mcg tablet 75 mcg PO DAILY 10/31/21 04/12/22 History (Euthyrox) oxcarbazepine 150 mg tablet 450 mg PO DAILY 10/31/21 04/12/22 History Patient History Medical History Cancer SKIN CANCER Compression fracture Deep vein thrombosis Hallucination Hallucinations (05/29/11) Hearing deficit Hypothyroidism Hypothyroidism On home oxygen therapy [place] OXYGEN AT NIGHT (UNSURE OF LITER) Peripheral neuropathy Psychosis Pulmonary embolism Seizure LAST EPISODE (THIS YEAR/UNSURE OF DATE) ? SEIZURE TYPE>FOLLOWS WITH DR. PHOENIX. OLD RECORDS NOTE EPILEPSY Seizure disorder Sleep apnea NO DEVICE USED NOW (CPAP USED IN PAST) Witnessed seizure-like activity Surgical History History of adenoidectomy History of bilateral tubal ligation History of colonoscopy History of tonsillectomy History of tooth extraction Family History Mother Family hx of colon cancer Social History Smoking Status: Never smoker Second Hand Exposure: Yes (Family members smoked during childhood); Do You Dip or Chew Tobacco: No; Tobacco Cessation Education Requested by Patient: No Hx Alcohol Use: No Hx Substance Use: No Preferred Language: Romanian Communication Ability: Effective Loss Prevention Manager Required: No Beliefs That Will Affect Care: None marital status: Current Living Situation: Spouse Current Living Situation Comment: Spouse is also hospitalized here at [facility] How many Children do You have: 5 Other Information That Helps Us Care for You: No Feels Safe at Home: Yes Safety Concerns: Feels Safe At This Time Assistive Devices: Stair Lift and Walker Assistive Devices Comment: glasses and hearing aids with patient Physical Exam Physical Exam: On exam she is alert and oriented. She is nontender palpation along lower portion of her lumbar spine. She able to roll side to side without difficulties. She has full range of motion hips and knees. Her lower extremity motor exam reveals no focal atrophy or strength 5 out of 5 to detailed muscle testing without exception. Sensation is intact to light touch proprioception is also intact her gait was not observed. Results & Data ([facility]) Vital Signs (Past 12 Hours) Vital Signs Temp Pulse Resp BP Pulse Ox O2 Del Method 04/14/22 07:48 36.9 C 67 16 120/76 93 Room Air 04/13/22 21:11 37.5 C 79 18 122/81 92 Room Air Diagnostic Findings CT scan of the lumbar spine performed recently reveals multiple old compression deformities with evidence of previous kyphoplasty. New findings at L3 where there is a mild superior endplate deformity. There is no retropulsion of fragments into the canal. (1) Closed compression fracture of L3 vertebra Encounter type: initial encounter Qualified Code(s): S32.030A - Wedge compression fracture of third lumbar vertebra, initial encounter for closed fracture
[2022-04-14] MEDS: OXcarbazepine 150 MG TABLET PO SCH ×2 (08:54→20:21)
[2022-04-14] MEDS: levETIRAcetam 500 MG TAB PO SCH ×2 (08:54→20:21)
[2022-04-14] MEDS: CALCIUM 600MG + VIT D 400 IU TAB PO SCH ×2 (08:54→20:20)
[2022-04-14] MEDS: GABAPENTIN 100 MG CAP PO SCH ×3 (08:54→20:20)
[2022-04-14] MEDS: PSYLLIUM or GUAR GUM FIBER POWDER PACKET PO SCH (12:55)
--- NOTE | 2022-04-14 14:59 | Hospitalist Progress Note ---
Date of Service April 14, 2022 Assessment & Plan (1) Compression fracture: (2) Fall: (3) Ambulatory dysfunction: (4) Seizure disorder: (5) Hypothyroidism: (6) Peripheral neuropathy: Plan Ms. Shah is a 71 year old female who presenting wit multiple falls. Pt with three falls over past year. L3 compression fx found today with multiple old compression fractures. Pt has had a T12 kyphoplasty with Dr. Carmen in past. Pt has H/O seizures, sees Dr. Pérez; stable and takes Keppra, Trileptal, Depakote. Pt will be admitted for pain control and observation. Fall Ambulatory Dysfunction: Compression Fracture: Continued balance issues over the past year; 3 falls reported without any loss of consciousness Uses a walker for ambulatory assistance H/O T12 burst fracture s/p T12 kyphoplasty with Dr. Carmen lumbar spine CT: New mild L3 compression fracture. Multiple old compression fracture status post multilevel vertebroplasty. Responded well with Tylenol; will continue PRN; conservative treatment Consider ortho eval and DEXA scan for OP OPT for f/u. Last DEXA was 02/2017. Zscore: -2.2 in femoral neck. Takes Calcium and D3; continue. May consider biphosphonate therapy like alendronate or Prolia Complains of persistence of pain and wants to have Ortho evaluation for possible surgery Dr. Carmen consulted-appreciate input and recommendation Patient is complaining of more pain and will need to adjust pain medications She denies any radiculopathic symptoms-we will continue with PT and OT Peripheral Neuropathy: States neuropathy contributes to her falls. Takes Gabapentin 100 mg PO BID; will increase to 300 mg TID. No new symptoms of neuropathy Seizure Disorder: Stable without focal deficit. last seizure was in 07/2021. Follows Artur Pérez PA-C. Last appt 03/01/[address] Takes Keppra, Trileptal, Depakote with doses as indicated. Valproic Acid level normal Oxycarbazepine level pending LFTs pending-pertinent normal No evidence of seizure since admission Hypothyroidism: Stable; continue Synthroid TSH on 11/12/21: 2.78 Disposition: PCP: Dr. Hay Code Status: Full Code VTE Prophlyaxis: Heparin SQ Plan to return home post discharge; consider case management involvement for safety measures; additional home support. Admission and Anticipated Discharge Date Admission Date: April 12, 2022 Subjective 04/13/2022 The patient was seen and examined in medical floor She was admitted with history of falls and ongoing back pain Still complains of pain at the lower back without any radiation and any problem with her urine and or bowel habit She wants to see orthopedic surgeon as she has had multiple prior back surgery 04/14/2022 The patient was seen and examined in medical floor She remains lying in bed with pain at the back and a little drowsy from medications Her pain gets worse with any movement Denies any other significant symptoms and no radiculopathic symptoms Review of Systems Review of Systems: All systems reviewed and are unremarkable except as noted below Musculoskeletal: Lower back pain without any radiation Physical Exam Physical Exam: Lying in bed with minimal distress due to ongoing back pain Constitutional: well developed, well nourished, + ill appearing and + obese Eyes: PERRL, conjunctivae normal, anicteric sclerae ENMT: external ear and nose normal, oropharynx normal Neck: trachea midline, no thyromegaly Respiratory: no respiratory distress Auscultation: + diminished lung sounds and + crackles (Minimal crackles at the bases) Cardiovascular: Rate/Rhythm: regular rate and regular rhythm; not tachycardic Heart Sounds: normal S1 and normal S2; no murmur Extremities: + edema (Tra ce edema bilaterally) Gastrointestinal (Abdomen): Inspection/Auscultation: normal bowel sounds; abdomen not distended Percussion/Palpation: abdomen soft; abdomen nontender Musculoskeletal: Low back pain with tenderness to the lower lumbar spine Neurologic: Alert, awake and oriented x3. Generally weak but no focal sensory or no motor deficit appreciated Lymphatic: no cervical or axillary lymphadenopathy Results & Data Results & Data ([facility]) Vital Signs (Past 12 Hours) Vital Signs Temp Pulse Resp BP Pulse Ox O2 Del Method 04/14/22 07:45 Room Air 04/14/22 07:48 36.9 C 67 16 120/76 93 Room Air Medications Administered Current Inpatient Medications Acetaminophen (Acetaminophen 500 Mg Tab) 1,000 mg PO Q6H PRN PRN Reason: Pain Stop: 05/12/22 12:37 Last Admin: 04/13/22 08:10 Dose: 1,000 mg Divalproex Sodium (Divalproex Extended Release 500 Mg Tab) 1,000 mg PO HS [facility] Stop: 05/12/22 20:59 Last Admin: 04/13/22 20:25 Dose: 1,000 mg Eszopiclone (Eszopiclone 1 Mg Tab) 2 mg PO HSZ [facility] Stop: 05/12/22 21:59 Last Admin: 04/13/22 20:40 Dose: Not Given Gabapentin (Gabapentin 100 Mg Cap) 200 mg PO TID [facility] Stop: 05/13/22 08:59 Last Admin: 04/14/22 08:54 Dose: 200 mg Heparin Sodium (Porcine) (Heparin Sod 5,000 Unit/0.5 Ml Vial) 5,000 units SQ Q8 [facility] Stop: 05/12/22 13:59 Last Admin: 04/14/22 05:37 Dose: 5,000 units Levetiracetam (Levetiracetam 500 Mg Tab) 500 mg PO BID [facility] Stop: 05/12/22 20:59 Last Admin: 04/14/22 08:54 Dose: 500 mg Levothyroxine Sodium (Levothyroxine Sodium 75 Mcg Tablet) 75 mcg PO DAILYBB [facility] Stop: 05/13/22 06:29 Last Admin: 04/14/22 05:37 Dose: 75 mcg Multivitamins/Minerals (Calcium 600mg + Vit D 400 Iu Tab) 1 tab PO BID [facility] Stop: 05/12/22 20:59 Last Admin: 04/14/22 08:54 Dose: 1 tab Oxcarbazepine (Oxcarbazepine 150 Mg Tablet) 450 mg PO BID [facility] Stop: 05/12/22 20:59 Last Admin: 04/14/22 08:54 Dose: 450 mg Oxycodone HCl (Oxycodone Hcl Ir 5 Mg Tab (Immediate Release)) 5 mg PO Q6H PRN PRN Reason: Severe Pain Stop: 04/26/22 17:20 Last Admin: 04/14/22 08:54 Dose: 5 mg Psyllium Hydrophilic Mucilloid (Psyllium Or Guar Gum Fiber Powder Packet) 1 pkt PO QAM [facility] Stop: 05/14/22 11:59 Last Admin: 04/14/22 12:55 Dose: 1 pkt (1) Fall Encounter type: initial encounter Qualified Code(s): W19.XXXA - Unspecified fall, initial encounter
[2022-04-14] MEDS ORDERED: ONDANSETRON INJ 2 MG/ML 2 ML VIAL IV PRN (15:07)
[2022-04-14] MEDS: DIVALPROEX EXTENDED RELEASE 500 MG TAB PO SCH (20:20)
[2022-04-14] MEDS: ESZOPICLONE 1 MG TAB PO SCH (20:22)
[2022-04-15] MEDS: HEPARIN SOD 5,000 UNIT/0.5 ML VIAL SQ SCH ×3 (05:32→20:40)
[2022-04-15] MEDS: LEVOTHYROXINE SODIUM 75 MCG TABLET PO SCH (05:32)
[2022-04-15 06:37] LABS: Hematocrit (blood only) 40.3 % (34.1-44.9); Mean Corpuscular Hemoglobin 32.3 pg (25.0-34.0); Mean Corpuscular Hgb Conc 34.7 g/dL (32.0-36.0); Mean Corpuscular Volume 92.9 fL (80.0-100.0); Mean Platelet Volume 9.5 fL (9.4-12.3); Platelet Count 194 K/uL (130-400); RDW Coefficient of Variation 12.6 % (11.5-14.5); RDW Standard Deviation 43.2 fL (36.4-46.3); Red Blood Count 4.34 M/uL (3.93-5.22); White Blood Count 4.51 K/ul (4.8-10.8)
[2022-04-15] MEDS: oxyCODONE HCL IR 5 MG TAB (IMMEDIATE RELEASE) PO PRN ×2 (07:54→21:18)
[2022-04-15] MEDS: CALCIUM 600MG + VIT D 400 IU TAB PO SCH ×2 (07:55→20:39)
[2022-04-15] MEDS: levETIRAcetam 500 MG TAB PO SCH ×2 (07:55→20:39)
[2022-04-15] MEDS: GABAPENTIN 100 MG CAP PO SCH ×3 (07:55→20:40)
[2022-04-15] MEDS: OXcarbazepine 150 MG TABLET PO SCH ×2 (07:56→20:39)
[2022-04-15] MEDS: PSYLLIUM or GUAR GUM FIBER POWDER PACKET PO SCH (07:56)
--- NOTE | 2022-04-15 08:39 | Orthopedic Progress Note ---
Date of Service April 15, 2022 Assessment & Plan (1) Compression fracture: Plan: Assessment L3 compression fracture. Plan at this time at length discussion with this patient regarding her imaging and clinical presentation. She would like to consider kyphoplasty as its been very effective in the past. Prior to making final determination I would like to obtain an MRI lumbar spine to rule out occult fractures and L4. If we were to consider kyphoplasty would be of L3 but we may need to consider prophylactic kyphoplasty of L 4 at the same setting as all of the other levels of the lumbar spine have undergone kyphoplasty creating significant stress remaining on stabilized vertebral bodies.. Admission and Anticipated Discharge Date Admission Date: April 12, 2022 Subjective Patient continues to complain of back pain. She was unable to transfer to the chair yesterday. She denies any leg pain. Physical Exam Physical Exam: On exam she is sitting up in bed. She does have the strength testing to lower extremities. She is obvious discomfort with any transfers or motion in bed. Results & Data ([facility]) Vital Signs (Past 12 Hours) Vital Signs Temp Pulse Resp BP Pulse Ox O2 Del Method 04/15/22 08:07 Room Air 04/15/22 07:11 36.6 C 71 16 128/80 93 Room Air 04/15/22 03:00 36.5 C 69 20 153/88 H 94 Room Air
[2022-04-15] MEDS ORDERED: SOD PHOSPHATE/SOD BIPHOSPHATE ENEMA 132 ML BTL PR STA (10:34)
[2022-04-15] MEDS: DOCUSATE SODIUM/SENNA 50/8.6MG TAB PO SCH (11:37)
--- NOTE | 2022-04-15 13:17 | Hospitalist Progress Note ---
Date of Service April 15, 2022 Assessment & Plan (1) Compression fracture: (2) Fall: (3) Ambulatory dysfunction: (4) Seizure disorder: (5) Hypothyroidism: (6) Peripheral neuropathy: Plan Ms. Shah is a 71 year old female who presenting wit multiple falls. Pt with three falls over past year. L3 compression fx found today with multiple old compression fractures. Pt has had a T12 kyphoplasty with Dr. Carmen in past. Pt has H/O seizures, sees Dr. Pérez; stable and takes Keppra, Trileptal, Depakote. Pt will be admitted for pain control and observation. Fall Ambulatory Dysfunction: Compression Fracture: Continued balance issues over the past year; 3 falls reported without any loss of consciousness Uses a walker for ambulatory assistance H/O T12 burst fracture s/p T12 kyphoplasty with Dr. Carmen lumbar spine CT: New mild L3 compression fracture. Multiple old compression fracture status post multilevel vertebroplasty. Responded well with Tylenol; will continue PRN; conservative treatment Consider ortho eval and DEXA scan for OP OPT for f/u. Last DEXA was 02/2017. Zscore: -2.2 in femoral neck. Takes Calcium and D3; continue. May consider biphosphonate therapy like alendronate or Prolia Complains of persistence of pain and wants to have Ortho evaluation for possible surgery Dr. Carmen consulted-appreciate input and recommendation Patient is complaining of more pain and will need to adjust pain medications She denies any radiculopathic symptoms-we will continue with PT and OT Still complains significant pain in the back and awaiting an MRI No bladder and/or bowel issues except constipation Peripheral Neuropathy: States neuropathy contributes to her falls. Takes Gabapentin 100 mg PO BID; will increase to 300 mg TID. No new symptoms of neuropathy Seizure Disorder: Stable without focal deficit. last seizure was in 07/2021. Follows Artur Pérez PA-C. Last appt 03/01/[address] Takes Keppra, Trileptal, Depakote with doses as indicated. Valproic Acid level normal Oxycarbazepine level pending LFTs pending-pertinent normal No evidence of seizure since admission Hypothyroidism: Stable; continue Synthroid TSH on 11/12/21: 2.78 Disposition: PCP: Dr. Hay Code Status: Full Code VTE Prophlyaxis: Heparin SQ Plan to return home post discharge; consider case management involvement for safety measures; additional home support. Admission and Anticipated Discharge Date Admission Date: April 12, 2022 Subjective 04/13/2022 The patient was seen and examined in medical floor She was admitted with history of falls and ongoing back pain Still complains of pain at the lower back without any radiation and any problem with her urine and or bowel habit She wants to see orthopedic surgeon as she has had multiple prior back surgery 04/14/2022 The patient was seen and examined in medical floor She remains lying in bed with pain at the back and a little drowsy from medications Her pain gets worse with any movement Denies any other significant symptoms and no radiculopathic symptoms 04/15/2022 The patient was seen and examined in medical floor She has been complaining of ongoing back pain with movement Her bowel has not had moved yet Denies any abdominal pain, distention, nausea and or vomiting Review of Systems Review of Systems: All systems reviewed and are unremarkable except as noted below Musculoskeletal: Lower back pain without any radiation Physical Exam Physical Exam: Lying in bed with minimal distress due to ongoing back pain Constitutional: well developed, well nourished, + ill appearing and + obese Eyes: PERRL, conjunctivae normal, anicteric sclerae ENMT: external ear and nose normal, oropharynx normal Neck: trachea midline, no thyromegaly Respiratory: no respiratory distress Auscultation: + diminished lung sounds and + crackles (Minimal crackles at the bases) Cardiovascular: Rate/Rhythm: regular rate and regular rhythm; not tachycardic Heart Sounds: normal S1 and normal S2; no murmur Extremities: + edema (Trace edema bilaterally) Gastrointestinal (Abdomen): Inspection/Auscultation: normal bowel sounds; abdomen not distended Percussion/Palpation: abdomen soft; abdomen nontender Musculoskeletal: No acute arthritis involving any joint Neurologic: moves all extremities; not confused Clinically no focal neurodeficit Lymphatic: no cervical or axillary lymphadenopathy Results & Data Results & Data ([facility]) Vital Signs (Past 12 Hours) Vital Signs Temp Pulse Resp BP Pulse Ox O2 Del Method 04/15/22 08:07 Room Air 04/15/22 07:11 36.6 C 71 16 128/80 93 Room Air 04/15/22 03:00 36.5 C 69 20 153/88 H 94 Room Air Laboratory Results Short CBC 04/15/22 Range/Units 06:12 WBC 4.51 L (4.8-10.8) K/ul Hgb 14.0 (12.0-16.0) g/dl Hct 40.3 (34.1-44.9) % Plt Count 194 (130-400) K/uL Medications Administered Current Inpatient Medications Acetaminophen (Acetaminophen 500 Mg Tab) 1,000 mg PO Q6H PRN PRN Reason: Pain Stop: 05/12/22 12:37 Last Admin: 04/13/22 08:10 Dose: 1,000 mg Divalproex Sodium (Divalproex Extended Release 500 Mg Tab) 1,000 mg PO HS [facility] Stop: 05/12/22 20:59 Last Admin: 04/14/22 20:20 Dose: 1,000 mg Eszopiclone (Eszopiclone 1 Mg Tab) 2 mg PO HSZ [facility] Stop: 05/12/22 21:59 Last Admin: 04/14/22 20:22 Dose: Not Given Gabapentin (Gabapentin 100 Mg Cap) 200 mg PO TID [facility] Stop: 05/13/22 08:59 Last Admin: 04/15/22 07:55 Dose: 200 mg Heparin Sodium (Porcine) (Heparin Sod 5,000 Unit/0.5 Ml Vial) 5,000 units SQ Q8 [facility] Stop: 05/12/22 13:59 Last Admin: 04/15/22 05:32 Dose: 5,000 units Levetiracetam (Levetiracetam 500 Mg Tab) 500 mg PO BID [facility] Stop: 05/12/22 20:59 Last Admin: 04/15/22 07:55 Dose: 500 mg Levothyroxine Sodium (Levothyroxine Sodium 75 Mcg Tablet) 75 mcg PO DAILYBB [facility] Stop: 05/13/22 06:29 Last Admin: 04/15/22 05:32 Dose: 75 mcg Multivitamins/Minerals (Calcium 600mg + Vit D 400 Iu Tab) 1 tab PO BID [facility] Stop: 05/12/22 20:59 Last Admin: 04/15/22 07:55 Dose: 1 tab Ondansetron HCl (Ondansetron Inj 2 Mg/Ml 2 Ml Vial) 4 mg IV Q6H PRN PRN Reason: Nausea And Vomiting Stop: 05/14/22 15:06 Oxcarbazepine (Oxcarbazepine 150 Mg Tablet) 450 mg PO BID [facility] Stop: 05/12/22 20:59 Last Admin: 04/15/22 07:56 Dose: 450 mg Oxycodone HCl (Oxycodone Hcl Ir 5 Mg Tab (Immediate Release)) 5 mg PO Q4H PRN PRN Reason: Severe Pain Stop: 04/26/22 17:20 Last Admin: 04/15/22 07:54 Dose: 5 mg Psyllium Hydrophilic Mucilloid (Psyllium Or Guar Gum Fiber Powder Packet) 1 pkt PO QAM [facility] Stop: 05/14/22 11:59 Last Admin: 04/15/22 07:56 Dose: Not Given Senna/Docusate Sodium (Docusate Sodium/Senna 50/8.6mg Tab) 1 tab PO QAM [facility] Stop: 05/15/22 10:44 Last Admin: 04/15/22 11:37 Dose: 1 tab (1) Fall Encounter type: initial encounter Qualified Code(s): W19.XXXA - Unspecified fall, initial encounter
[2022-04-15] MEDS: ACETAMINOPHEN 500 MG TAB PO PRN (19:35)
[2022-04-15] MEDS: DIVALPROEX EXTENDED RELEASE 500 MG TAB PO SCH (20:40)
[2022-04-15] MEDS: ESZOPICLONE 1 MG TAB PO SCH (21:24)
[2022-04-16] MEDS: HEPARIN SOD 5,000 UNIT/0.5 ML VIAL SQ SCH ×2 (05:28→16:59)
[2022-04-16] MEDS: oxyCODONE HCL IR 5 MG TAB (IMMEDIATE RELEASE) PO PRN ×2 (05:28→20:20)
[2022-04-16] MEDS: LEVOTHYROXINE SODIUM 75 MCG TABLET PO SCH (05:28)
[2022-04-16] MEDS: OXcarbazepine 150 MG TABLET PO SCH ×2 (07:59→20:22)
[2022-04-16] MEDS: PSYLLIUM or GUAR GUM FIBER POWDER PACKET PO SCH (07:59)
[2022-04-16] MEDS: CALCIUM 600MG + VIT D 400 IU TAB PO SCH ×2 (07:59→20:22)
[2022-04-16] MEDS: DOCUSATE SODIUM/SENNA 50/8.6MG TAB PO SCH (07:59)
[2022-04-16] MEDS: GABAPENTIN 100 MG CAP PO SCH ×3 (07:59→20:21)
[2022-04-16] MEDS: levETIRAcetam 500 MG TAB PO SCH ×2 (07:59→20:22)
[2022-04-16] MEDS ORDERED: MIDAZOLAM HCL 1 MG/ML 2ML VIAL ONE ×2 (08:35→13:23)
[2022-04-16] MEDS ORDERED: PROPOFOL IV EMULSION 10 MG/ML 20 ML VIAL IV ONE ×2 (08:35→13:49)
[2022-04-16] MEDS ORDERED: LIDOCAINE 2% MPF LOCAL 5 ML VIAL INFIL ONE ×2 (08:35→13:49)
[2022-04-16] MEDS ORDERED: SUCCINYLCHOLINE CHLORIDE 20 MG/ML 10 ML VIAL IV ONE (08:35)
[2022-04-16] MEDS ORDERED: fentaNYL citrate 100 MCG/2 ML VIAL ONE ×2 (08:35→13:23)
[2022-04-16 11:17] LABS: Valproic Acid, Free 9.2 mg/L (4.8-17.3); Valproic Acid, Total 70.8 mg/L (50.0-100.0)
--- NOTE | 2022-04-16 12:06 | Hospitalist Progress Note ---
Date of Service April 16, 2022 Assessment & Plan (1) Compression fracture: (2) Fall: (3) Ambulatory dysfunction: (4) Seizure disorder: (5) Hypothyroidism: (6) Peripheral neuropathy: Plan Ms. Shah is a 71 year old female who presenting wit multiple falls. Pt with three falls over past year. L3 compression fx found today with multiple old compression fractures. Pt has had a T12 kyphoplasty with Dr. Carmen in past. Pt has H/O seizures, sees Dr. Pérez; stable and takes Keppra, Trileptal, Depakote. Pt will be admitted for pain control and observation. Fall Ambulatory Dysfunction: Compression Fracture:Secondary to Age-related osteoporosis w current pathologic fracture, L3 Continued balance issues over the past year; 3 falls reported without any loss of consciousness Uses a walker for ambulatory assistance H/O T12 burst fracture s/p T12 kyphoplasty with Dr. Carmen lumbar spine CT: New mild L3 compression fracture. Multiple old compression fracture status post multilevel vertebroplasty. Responded well with Tylenol; will continue PRN; conservative treatment Consider ortho eval and DEXA scan for OP OPT for f/u. Last DEXA was 02/2017. Zscore: -2.2 in femoral neck. Takes Calcium and D3; continue. May consider biphosphonate therapy like alendronate or Prolia Complains of persistence of pain and wants to have Ortho evaluation for possible surgery Dr. Carmen consulted-appreciate input and recommendation Patient is complaining of more pain and will need to adjust pain medications She denies any radiculopathic symptoms-we will continue with PT and OT Still complains significant pain in the back and awaiting an MRI No bladder and/or bowel issues except constipation Status post kyphoplasty L3 on 04/16/2022 She has been feeling better following surgery with less pain but remains drowsy during my examination this afternoon Chronic hyponatremia Has chronic hyponatremia We will advise taking more sodium in diet Doubt any acute symptoms from low sodium Peripheral Neuropathy: States neuropathy contributes to her falls. Takes Gabapentin 100 mg PO BID; will increase to 300 mg TID. No new symptoms of neuropathy Seizure Disorder: Stable without focal deficit. last seizure was in 07/2021. Follows Artur Pérez PA-C. Last appt 03/01/[address] Takes Keppra, Trileptal, Depakote with doses as indicated. Valproic Acid level normal Oxycarbazepine level pending LFTs pending-pertinent normal No evidence of seizure since admission Hypothyroidism: Stable; continue Synthroid TSH on 11/12/21: 2.78 Disposition: PCP: Dr. Hay Code Status: Full Code VTE Prophlyaxis: As per Ortho Plan to return home post discharge; consider case management involvement for safety measures; additional home support. Admission and Anticipated Discharge Date Admission Date: April 12, 2022 Subjective 04/13/2022 The patient was seen and examined in medical floor She was admitted with history of falls and ongoing back pain Still complains of pain at the lower back without any radiation and any problem with her urine and or bowel habit She wants to see orthopedic surgeon as she has had multiple prior back surgery 04/14/2022 The patient was seen and examined in medical floor She remains lying in bed with pain at the back and a little drowsy from medications Her pain gets worse with any movement Denies any other significant symptoms and no radiculopathic symptoms 04/15/2022 The patient was seen and examined in medical floor She has been complaining of ongoing back pain with movement Her bowel has not had moved yet Denies any abdominal pain, distention, nausea and or vomiting 04/16/2022 The patient was seen and examined in medical floor She is a status post lumbar decompression and fusion She has been feeling much better following the procedure but he still remains very drowsy Review of Systems Review of Systems: All systems reviewed and are unremarkable except as noted below Musculoskeletal: Lower back pain without any radiation Physical Exam Physical Exam: Lying in bed with some drowsiness following the surgery and likely contributed by anesthetics Constitutional: well developed, well nourished, + ill appearing and + obese Eyes: PERRL, conjunctivae normal, anicteric sclerae ENMT: external ear and nose normal, oropharynx normal Neck: trachea midline, no thyromegaly Respiratory: no respiratory distress Auscultation: + diminished lung sounds and + crackles (Minimal crackles at the bases) Cardiovascular: Rate/Rhythm: regular rate and regular rhythm; not tachycardic Heart Sounds: normal S1 and normal S2; no murmur Extremities: + edema (Trace edema bilaterally) Gastrointestinal (Abdomen): Inspection/Auscultation: normal bowel sounds; abdomen not distended Percussion/Palpation: abdomen soft; abdomen nontender Neurologic: moves all extremities; not confused Lymphatic: no cervical or axillary lymphadenopathy Results & Data Results & Data ([facility]) Vital Signs (Past 12 Hours) Vital Signs Temp Pulse Resp BP Pulse Ox O2 Del Method 04/16/22 07:39 36.8 C 76 16 118/81 94 Room Air Medications Administered Current Inpatient Medications Acetaminophen (Acetaminophen 500 Mg Tab) 1,000 mg PO Q6H PRN PRN Reason: Pain Stop: 05/12/22 12:37 Last Admin: 04/15/22 19:35 Dose: 1,000 mg Atropine Sulfate (Atropine Sulfate 0.1 Mg/Ml 10ml Syr) 0.5 mg IV Q1M PRN PRN Reason: PACU Use-HR<40 &/or Bradycardi Stop: 04/16/22 22:07 Divalproex Sodium (Divalproex Extended Release 500 Mg Tab) 1,000 mg PO HS [facility] Stop: 05/12/22 20:59 Last Admin: 04/15/22 20:40 Dose: 1,000 mg Ephedrine Sulfate (Ephedrine Sulfate 50 Mg/Ml Amp) 5 mg IV Q5M PRN PRN Reason: PACU Use Only-SBP<90 mmHg Stop: 04/16/22 22:07 Eszopiclone (Eszopiclone 1 Mg Tab) 2 mg PO HSZ [facility] Stop: 05/12/22 21:59 Last Admin: 04/15/22 21:24 Dose: Not Given Fentanyl Citrate (Fentanyl Citrate 100 Mcg/2 Ml Vial) 25 mcg IV Q5M PRN PRN Reason: PACU Use Only-Pain Stop: 04/16/22 22:07 Last Admin: 04/16/22 16:10 Dose: 25 mcg Flumazenil (Flumazenil 0.1 Mg/1 Ml 10 Ml Vial) 0.2 mg IV Q2M PRN PRN Reason: PACU Use Only-Benzo Reversal Stop: 04/16/22 22:07 Gabapentin (Gabapentin 100 Mg Cap) 200 mg PO TID [facility] Stop: 05/13/22 08:59 Last Admin: 04/16/22 16:58 Dose: Not Given Hydromorphone HCl (Hydromorphone Inj 1 Mg/Ml Syringe) 0.25 mg IV Q5M PRN PRN Reason: PACU Use Only-Pain Stop: 04/16/22 22:07 Promethazine HCl 12.5 mg/ (Sodium Chloride) 50.5 mls @ 204 mls/hr IV ONCE PRN PRN Reason: PACU Use Only-Nausea/Vomiting Stop: 04/16/22 22:07 Labetalol HCl (Labetalol Hcl Iv 5 Mg/Ml 20ml) 5 mg IV Q5M PRN PRN Reason: PACU Use-SBP>160 or DBP>100 Stop: 04/16/22 22:07 Levetiracetam (Levetiracetam 500 Mg Tab) 500 mg PO BID [facility] Stop: 05/12/22 20:59 Last Admin: 04/16/22 07:59 Dose: 500 mg Levothyroxine Sodium (Levothyroxine Sodium 75 Mcg Tablet) 75 mcg PO DAILYBB [facility] Stop: 05/13/22 06:29 Last Admin: 04/16/22 05:28 Dose: 75 mcg Multivitamins/Minerals (Calcium 600mg + Vit D 400 Iu Tab) 1 tab PO BID [facility] Stop: 05/12/22 20:59 Last Admin: 04/16/22 07:59 Dose: 1 tab Naloxone HCl (Naloxone Hcl 0.4 Mg/1 Ml Vial/Carp) 0.2 mg IV Q2M PRN PRN Reason: PACU Use Only-Opiate Reversal Stop: 04/16/22 22:07 Ondansetron HCl (Ondansetron Inj 2 Mg/Ml 2 Ml Vial) 4 mg IV Q6H PRN PRN Reason: Nausea And Vomiting Stop: 05/14/22 15:06 Ondansetron HCl (Ondansetron Inj 2 Mg/Ml 2 Ml Vial) 4 mg IV ONCE PRN PRN Reason: PACU Use Only-Nausea/Vomiting Stop: 04/16/22 22:07 Oxcarbazepine (Oxcarbazepine 150 Mg Tablet) 450 mg PO BID [facility] Stop: 05/12/22 20:59 Last Admin: 04/16/22 07:59 Dose: 450 mg Oxycodone HCl (Oxycodone Hcl Ir 5 Mg Tab (Immediate Release)) 5 mg PO Q4H PRN PRN Reason: Severe Pain Stop: 04/26/22 17:20 Last Admin: 04/16/22 05:28 Dose: 5 mg Psyllium Hydrophilic Mucilloid (Psyllium Or Guar Gum Fiber Powder Packet) 1 pkt PO QAM [facility] Stop: 05/14/22 11:59 Last Admin: 04/16/22 07:59 Dose: Not Given Senna/Docusate Sodium (Docusate Sodium/Senna 50/8.6mg Tab) 1 tab PO QAM [facility] Stop: 05/15/22 10:44 Last Admin: 04/16/22 07:59 Dose: Not Given (1) Fall Encounter type: initial encounter Qualified Code(s): W19.XXXA - Unspecified fall, initial encounter
--- NOTE | 2022-04-16 13:36 | History & Physical Bridge Note ---
Date of Service April 16, 2022 History & Physical Bridge Note I have examined the patient, reviewed the History & Physical and in the interval since the performance of the History & Physical I have noted the following changes of clinical significance: no changes noted Kyphoplasty L3 possible L2
[2022-04-16] MEDS ORDERED: DEXAMETHASONE SOD INJ 4 MG/ML VIAL ONE (13:49)
[2022-04-16] MEDS ORDERED: SUCCINYLCHOLINE 100MG/5ML SYR IV ONE (13:49)
[2022-04-16] MEDS ORDERED: ONDANSETRON INJ 2 MG/ML 2 ML VIAL ONE (13:49)
--- NOTE | 2022-04-16 14:00 | Anesthesiology Consultation ---
Date of Service April 16, 2022 Assessment & Plan Chart Review Chart Review: Acceptable Risk for Surgery, Patient NOT seen in Pre Admission Testing and Acceptable Risk for Labor Epidural Consults Requested none ASA ASA4 Proposed Anesthesia Anesthesia Type: General Risk / Benefits Reviewed With: PT / POA / Parent / Guardian, Accepts Plan and Informed Consent Obtained Additional Comments: covid test neg. History Surgery Operation Date: 04/16/22 08:20 Proposed Procedures p Kyphoplasty L3 - Kevin Carmen, Height/Weight Height: 5 ft 4 in Weight: 100.607 kg Allergies Allergy/AdvReac Type Severity Reaction Status Date / Time amoxicillin Allergy Rash Verified 04/16/22 13:49 Medications Home Medications Medication Instructions Recorded Confirmed Last Taken acetaminophen 500 mg tablet 1,000 mg PO Q6H PRN Pain 10/31/21 04/12/22 04/11/22 (Tylenol Extra Strength) divalproex 500 mg tablet,extended 1,000 mg PO HS 10/31/21 04/12/22 04/11/22 release 24 hr eszopiclone 2 mg tablet 2 mg PO HS 10/31/21 04/12/22 04/11/22 levetiracetam 500 mg tablet 250 mg PO HS 10/31/21 04/12/22 04/11/22 levothyroxine 75 mcg tablet 75 mcg PO DAILY 10/31/21 04/12/22 04/11/22 (Euthyrox) oxcarbazepine 150 mg tablet 450 mg PO DAILY 10/31/21 04/12/22 04/11/22 Active Medications Generic Name Dose Route Start Last Admin Trade Name Wiltonq PRN Reason Stop Dose Admin Acetaminophen 1,000 mg 04/12/22 12:38 04/15/22 19:35 Acetaminophen 500 Mg Tab PO 05/12/22 12:37 1,000 mg Q6H PRN Administration Pain Divalproex Sodium 1,000 mg 04/12/22 21:00 04/15/22 20:40 Divalproex Extended Release 500 Mg Tab PO 05/12/22 20:59 1,000 mg HS SACHA Administration Eszopiclone 2 mg 04/12/22 22:00 04/15/22 21:24 Eszopiclone 1 Mg Tab PO 05/12/22 21:59 Not Given HSZ SACHA Gabapentin 200 mg 04/13/22 09:00 04/16/22 07:59 Gabapentin 100 Mg Cap PO 05/13/22 08:59 200 mg TID SACHA Administration Heparin Sodium (Porcine) 5,000 units 04/12/22 14:00 04/16/22 05:28 Heparin Sod 5,000 Unit/0.5 Ml Vial SQ 05/12/22 13:59 5,000 units Q8 SACHA Administration Levetiracetam 500 mg 04/12/22 21:00 04/16/22 07:59 Levetiracetam 500 Mg Tab PO 05/12/22 20:59 500 mg BID SACHA Administration Levothyroxine Sodium 75 mcg 04/13/22 06:30 04/16/22 05:28 Levothyroxine Sodium 75 Mcg Tablet PO 05/13/22 06:29 75 mcg DAILYBB SACHA Administration Multivitamins/Minerals 1 tab 04/12/22 21:00 04/16/22 07:59 Calcium 600mg + Vit D 400 Iu Tab PO 05/12/22 20:59 1 tab BID SACHA Administration Oxcarbazepine 450 mg 04/12/22 21:00 04/16/22 07:59 Oxcarbazepine 150 Mg Tablet PO 05/12/22 20:59 450 mg BID SACHA Administration Oxycodone HCl 5 mg 04/14/22 15:02 04/16/22 05:28 Oxycodone Hcl Ir 5 Mg Tab (Immediate Release) PO 04/26/22 17:20 5 mg Q4H PRN Administration Severe Pain Psyllium Hydrophilic Mucilloid 1 pkt 04/14/22 12:00 04/16/22 07:59 Psyllium Or Guar Gum Fiber Powder Packet PO 05/14/22 11:59 Not Given QAM [facility] Senna/Docusate Sodium 1 tab 04/15/22 10:45 04/16/22 07:59 Docusate Sodium/Senna 50/8.6mg Tab PO 05/15/22 10:44 Not Given QAM SACHA NPO Date Last Intake of Fluids: 04/15/22 Time Last Intake of Fluids: 23:00 Date Last Intake of Solids: 04/15/22 Time Last Intake of Solids: 23:00 Past Medical History Medical History Cancer SKIN CANCER Compression fracture Deep vein thrombosis Hallucination Hallucinations (05/29/11) Hearing deficit Hypothyroidism Hypothyroidism On home oxygen therapy [place] OXYGEN AT NIGHT (UNSURE OF LITER) Peripheral neuropathy Psychosis Pulmonary embolism Seizure LAST EPISODE (THIS YEAR/UNSURE OF DATE) ? SEIZURE TYPE>FOLLOWS WITH DR. ANNELIESE CARMONA. OLD RECORDS NOTE EPILEPSY Seizure disorder Sleep apnea NO DEVICE USED NOW (CPAP USED IN PAST) Witnessed seizure-like activity Exercise / Class Metabolic Activity IV < 2 Limit ADL/Bedbound Past Family History Family History Mother Family hx of colon cancer Past Surgical History Surgical History History of adenoidectomy History of bilateral tubal ligation History of colonoscopy History of tonsillectomy History of tooth extraction Past Anesthesia History No Hx of Anesthesia Complications and No Family Hx of Anesthesia Complications History of PONV No Hx of PONV and No Hx of Motion Sickness Social History Smoking Status: Never smoker Do You Dip or Chew Tobacco: No Hx Alcohol Use: No Hx Substance Use: No substance use type: does not use Physical Exam Vital Signs Last Vital Signs Temp 36.7 C 04/16/22 13:15 Pulse 69 04/16/22 13:15 Resp 20 04/16/22 13:15 BP 120/83 04/16/22 13:15 Pulse Ox 93 04/16/22 13:15 O2 Del Method 04/16/22 13:15 Constitutional + obese ENMT Mouth: + dentition abnormality and + edentulous Thyromental Distance: < 3.5 Finger Breadths Mallampati Class: II Neck normal visual inspection and trachea midline; neck extension not limited Respiratory normal respiratory effort Auscultation: lungs clear to auscultation bilaterally Cardiovascular Rate/Rhythm: regular rate and regular rhythm Heart Sounds: no murmur Vessels: no carotid bruit Musculoskeletal Spine: normal cervical ROM and no pain with cervical ROM Extremities: extremities normal to inspection Neurologic moves all extremities Motor/Sensory: no sensory deficit Psychiatric Orientation: alert and oriented x 3 Testing Laboratory Results 04/15/22 06:12 04/13/22 07:25 PT 11.2 Seconds (9.0-12.0) 04/12/22 07:50 INR 1.1 (0.9-1.1) 04/12/22 07:50 Urine Color Yellow 04/12/22 10:08 Urine Appearance Clear (Clear) 04/12/22 10:08 Urine pH 6.5 (4.5-7.5) 04/12/22 10:08 Ur Specific [place] 1.018 (1.000-1.030) 04/12/22 10:08 Urine Protein Trace (Negative) H 04/12/22 10:08 Urine Glucose (UA) Negative (Negative) 04/12/22 10:08 Urine Ketones 2+ (Negative) H 04/12/22 10:08 Urine Nitrite Negative (Negative) 04/12/22 10:08 Ur Leukocyte Esterase Trace (Negative) H 04/12/22 10:08 Urine WBC (Auto) 1-5 /hpf (0-5) 04/12/22 10:08 Urine RBC (Auto) 0-4 /hpf (0-4) 04/12/22 10:08 U Hyaline Cast (Auto) 1-5 /lpf (0-5) 04/12/22 10:08 U Epithel Cells (Auto) 20-30 /lpf (0-5) H 04/12/22 10:08 Urine Bacteria (Auto) Negative (Negative) 04/12/22 10:08 Electrocardiogram Date: 04/12/22 Findings: + NSR @ (at 76;low voltage QRS) Chest X-Ray Date: 04/12/22 Findings: + NAD, + cardiomegaly (mild) and + atherosclerosis of thoracic aorta Echocardiogram Date: 11/01/21 EF: 60% LV Function: normal RWMA: + none mild TR Cardiac Catheterization Date: 11/14/20 Findings: + LCX (20% ostial) and + pertinent finding (otherwise luminal irregularities)
[2022-04-16] MEDS ORDERED: ceFAZolin 2000MG 2,000 MG/15 ML SYR IV ONE (14:01)
[2022-04-16] MEDS ORDERED: BUPIVACAINE/EPINEPHRINE 0.25% 1:200,000 30 ML VIAL ONE (14:02)
[2022-04-16] MEDS ORDERED: ceFAZolin 2,000 MG/15 ML IV PUSH IV ONE (14:04)
[2022-04-16] MEDS ORDERED: HYDROmorphone INJ 1 MG/ML SYRINGE IV PRN (14:07)
[2022-04-16] MEDS ORDERED: ATROPINE SULFATE 0.1 MG/ML 10ML SYR IV PRN (14:07)
[2022-04-16] MEDS ORDERED: FLUMAZENIL 0.1 MG/1 ML 10 ML VIAL IV PRN (14:07)
[2022-04-16] MEDS ORDERED: ePHEDrine sulfate 50 MG/ML AMP IV PRN (14:07)
[2022-04-16] MEDS ORDERED: PROMETHAZINE HCL 12.5 MG in SODIUM CHLORIDE 0.9% 50 ML IV PRN (14:07)
[2022-04-16] MEDS ORDERED: LABETALOL HCL IV 5 MG/ML 20ML IV PRN (14:07)
[2022-04-16] MEDS ORDERED: NALOXONE HCL 0.4 MG/1 ML VIAL/CARP IV PRN (14:07)
[2022-04-16] MEDS ORDERED: ONDANSETRON INJ 2 MG/ML 2 ML VIAL IV PRN (14:07)
[2022-04-16] MEDS ORDERED: ePHEDrine sulfate 50 MG/ML SYR ONE (14:47)
--- NOTE | 2022-04-16 15:13 | Magnetic Resonance Report ---
MR lumbar spine wo con CLINICAL HISTORY: back pain TECHNIQUE: Multiplanar sequences through the lumbar spine were obtained, without intravenous contrast . Comparison: Comparison is made to CT lumbar spine 04/12/2022 FINDINGS: Cemented arthroplasty changes are noted at T12, L1, and L4. There is T2 hyperintensity in the superio r aspect of the L3 vertebral body compatible with acute fracture. There is minimal retropulsion of ap proximately 2 mm. L1-L2: There is a broad-based posterior disc bulge with resulting moderate bilateral neural foraminal stenosis without significant canal stenosis. L2-L3: Broad-based disc bulge results in moderate bilateral neuroforaminal stenosis without significa nt canal stenosis. L3-L4: There is a broad-based posterior disc bulge with bilateral neural foraminal stenosis. L4-L5: There is a broad-based posterior disc bulge and bilateral facet arthropathy resulting in mild canal and moderate neuroforaminal stenosis. L5-S1: No significant abnormality. The spinal ligaments are intact, without evidence of disruption or abnormal signal intensity. The spi nal cord is normal in signal intensity and there is no evidence of cord contusion. There is no eviden ce of an extradural, intradural, extramedullary or intramedullary lesion. Minimal soft tissue edema i s seen in the posterior midline. IMPRESSION: 1. Findings are compatible with mild acute compression fracture in L3 with minimal retropulsion with out significant canal stenosis. 2. Multilevel degenerative changes about to moderate bilateral neuroforaminal stenosis and mild patricia l stenosis. 3. Patient is status post cemented arthroplasty. ACT 112: Negative or not required by law. Electronically signed by: Tenzin Hussein M.D. 04/16/2022 3:12 PM
--- NOTE | 2022-04-16 15:28 | Operative Report ---
Post Operative Report Pre & Post Diagnosis Operation Date: 04/16/22 08:20 Pre-Op Diagnosis: L2 and L3 compression fractures Post-Op Diagnosis: Same I identified the patient and participated in the time-out.: Yes Procedure Operation Date: 04/16/22 08:20 Actual Procedures #1 kyphoplasty of L2 and L3 vertebral body. #2 biopsy of L2 and L3 vertebral body. Surgeon Kevin Carmen, Food Assembler None Estimated Blood Loss 5 Findings Consistent with Post-Op Diagnosis Specimens Biopsies of L2 and L3 vertebral body Indications This is a 71-year-old female who presents with significant back pain markedly limiting her activities of daily living. She has marked difficulty with transfers from bed to chair without excruciating pain. Separately she is here for surgical stabilization of her fractures. Description of Procedure Patient was met with identified informed consent obtained. Patient was then taken to the operative suite underwent ablation placed in a prone position the Prakash table chest padded bolsters. All bony prominences well-padded eyes inspected to ensure no external pressure placed upon them. This point the thoracolumbar spine was prepped and draped normal sterile fashion. With the assistance of fluoroscopy in AP and lateral planes 2 Kyphon working cannulas were placed by way of a transpedicular approach into the L3 vertebral body. 2 biopsies were obtained and then I inserted the 20 mm Kyphon balloons into the vertebral body. They were sequentially inflated with fluoroscopic visualization. They were removed and I injected approximately 6 cc of Kyphon cement with direct fluoroscopic visualization demonstrating excellent interdigitation and fill. After this is completed I proceeded to the L2 fracture. Small incision was created just lateral to the pedicles and again Kyphon working cannulas placed by way of a transpedicular approach into the L2 vertebral body. 2 biopsies were obtained. I then inserted the 20 mm Kyphon balloons sequentially inflated under fluoroscopic visualization. They were separately removed and again approximately 6 cc of Kyphon cement injected with fluoroscopic visualization demonstrating excellent interdigitation and fill. The working cannulas were removed all small incisions closed with subcutaneous 4-0 Monocryl and sterile dressings placed. Patient waken taken PACU stable condition. I attest to the content of the Intraoperative Record and any orders documented therein. Any exceptions are noted below.
[2022-04-16] MEDS: fentaNYL citrate 100 MCG/2 ML VIAL IV PRN ×4 (15:39→16:10)
--- NOTE | 2022-04-16 15:58 | Fluoroscopy Report ---
INTRAOPERATIVE RADIOGRAPHS CLINICAL HISTORY: L2 and L3 kyphoplasty. Fluoroscopy time: 198 seconds. FINDINGS: 19 spot images of the thoracolumbar spine are presented. Correlation is made with CT of the lumbar spine dated 04/12/2022 and MRI of the lumbar spine dated 04/16/2022. There are numerous chronic c ompression deformities. There is evidence of previous vertebroplasty at T12, L1, and L4. Intraoperati ve images show kyphoplasty performed at L2 and L3. IMPRESSION: Intraoperative images from kyphoplasty at L2 and L3. Electronically signed by: Janusz Casillas M.D. 04/16/2022 3:57 PM
--- NOTE | 2022-04-16 16:42 | Anesthesiology Progress Note ---
Date of Service April 16, 2022 Anesthesia Post Procedure Vital Signs Vital Signs: Temp Pulse Pulse Pulse Resp BP BP 04/16/22 16:30 73 15 132/81 04/16/22 16:10 98.2 F 77 17 134/93 04/16/22 16:00 74 16 140/87 04/16/22 15:50 79 16 131/78 04/16/22 15:40 82 23 130/77 04/16/22 16:20 78 17 120/72 04/16/22 15:32 96.8 F L 88 20 143/89 H 04/16/22 13:15 98.1 F 69 20 120/83 04/16/22 07:39 98.2 F 76 16 118/81 04/15/22 21:16 98.4 F 75 20 134/85 Pulse Ox O2 Del Method O2 Flow Rate 04/16/22 16:30 95 Oxymask 2 04/16/22 16:10 93 Oxymask 2 04/16/22 16:00 93 Oxymask 2 04/16/22 15:50 93 Oxymask 2 04/16/22 15:40 98 Oxymask 4 04/16/22 16:20 95 Oxymask 2 04/16/22 15:32 96 Oxymask 6 04/16/22 13:15 93 Nasal Cannula 04/16/22 07:39 94 Room Air 04/15/22 21:16 93 Room Air Pain Intensity Lower Back: Pain Intensity: 2 Back: Pain Intensity: 3 Transfer of Care Handoff Completed per policy Notes Mental Status: alert / awake / arousable and participated in evaluation Patient Amnestic to Procedure: Yes Nausea / Vomiting: adequately controlled Pain: adequately controlled Airway Patency, RR, SpO2: stable & adequate BP & HR: stable & adequate Hydration State: stable & adequate Anesthetic Complications: no major complications apparent and Pt Satisfied with anesthetic care
[2022-04-16] MEDS: DIVALPROEX EXTENDED RELEASE 500 MG TAB PO SCH (20:21)
[2022-04-16] MEDS: ESZOPICLONE 1 MG TAB PO SCH (21:53)
[2022-04-17] MEDS: LEVOTHYROXINE SODIUM 75 MCG TABLET PO SCH (05:20)
[2022-04-17] MEDS: oxyCODONE HCL IR 5 MG TAB (IMMEDIATE RELEASE) PO PRN ×3 (05:22→17:14)
[2022-04-17 08:19] LABS: Basophils # (auto) 0.02 K/uL (0-0.2); Basophils % (auto) 0.5 %; Eosinophils # (auto) 0.07 K/uL (0-0.50); Eosinophils % (auto) 1.7 %; Hematocrit (blood only) 40.4 % (34.1-44.9); Hemoglobin 13.7 g/dl (12.0-16.0); Immature Granulocytes # (auto) 0.03 K/uL (0.00-0.02); Immature Granulocytes % (auto) 0.7 %; Lymphocytes # (auto) 0.46 K/uL (1.2-3.4); Mean Corpuscular Hemoglobin 32.2 pg (25.0-34.0); Mean Corpuscular Hgb Conc 33.9 g/dL (32.0-36.0); Mean Corpuscular Volume 94.8 fL (80.0-100.0); Mean Platelet Volume 9.7 fL (9.4-12.3); Monocytes # (auto) 0.39 K/uL (0.24-0.82); Monocytes % (auto) 9.3 %; Neutrophils # (auto) 3.23 K/uL (1.4-6.5); Neutrophils % (auto) 76.8 %; Platelet Count 171 K/uL (130-400); RDW Coefficient of Variation 13.1 % (11.5-14.5); RDW Standard Deviation 45.6 fL (36.4-46.3); Red Blood Count 4.26 M/uL (3.93-5.22)
[2022-04-17] MEDS: OXcarbazepine 150 MG TABLET PO SCH ×2 (08:24→20:30)
[2022-04-17] MEDS: GABAPENTIN 100 MG CAP PO SCH ×3 (08:24→20:30)
[2022-04-17] MEDS: levETIRAcetam 500 MG TAB PO SCH ×2 (08:24→20:30)
[2022-04-17] MEDS: DOCUSATE SODIUM/SENNA 50/8.6MG TAB PO SCH (08:24)
[2022-04-17] MEDS: CALCIUM 600MG + VIT D 400 IU TAB PO SCH ×2 (08:24→20:29)
[2022-04-17] MEDS: PSYLLIUM or GUAR GUM FIBER POWDER PACKET PO SCH (08:25)
[2022-04-17 08:52] LABS: BUN Creatinine Ratio 16.7 (10-20); Calcium 9.1 mg/dl (8.5-10.1); Creatinine Clr Calc Pharmacy 125.8 ml/min; Est GFR (African American) 115.2 ml/min; Est GFR (Non-African American) 99.4 ml/min; Potassium 3.6 mmol/L (3.5-5.1)
[2022-04-17] MEDS ORDERED: MAGNESIUM HYDROXIDE SUSP 30 ML UDC PO PRN (13:23)
--- NOTE | 2022-04-17 14:24 | Orthopedic Progress Note ---
Date of Service April 17, 2022 Assessment & Plan (1) Closed compression fracture of L3 vertebra: Plan: At this time on her encourage her to continue with physical therapy. She is stable from an orthopedic standpoint to return home when ready. Admission and Anticipated Discharge Date Admission Date: April 12, 2022 Subjective Patient's back pain is markedly improved. She is tolerating transitions to chair. Physical Exam Physical Exam: On exam she is currently in bed. She is listening to testing. Results & Data ([facility]) Vital Signs (Past 12 Hours) Vital Signs Temp Pulse Resp BP BP Pulse Ox O2 Del Method 04/17/22 11:05 37.8 C H 97 H 18 122/80 94 Room Air 04/17/22 07:11 36.7 C 81 18 124/80 94 Room Air 04/17/22 04:00 36.8 C 70 18 130/78 90 Room Air (1) Closed compression fracture of L3 vertebra Encounter type: initial encounter Qualified Code(s): S32.030A - Wedge compression fracture of third lumbar vertebra, initial encounter for closed fracture
--- NOTE | 2022-04-17 14:31 | Hospitalist Progress Note ---
Date of Service April 17, 2022 Assessment & Plan (1) Compression fracture: (2) Fall: (3) Ambulatory dysfunction: (4) Seizure disorder: (5) Hypothyroidism: (6) Peripheral neuropathy: Plan per Dr. Wiley's notes with addendum: Ms. Shah is a 71 year old female who presenting wit multiple falls. Pt with three falls over past year. L3 compression fx found today with multiple old compression fractures. Pt has had a T12 kyphoplasty with Dr. Carmen in past. Pt has H/O seizures, sees Dr. Pérez; stable and takes Keppra, Trileptal, Depakote. Pt will be admitted for pain control and observation. Fall Ambulatory Dysfunction: Compression Fracture:Secondary to Age-related osteoporosis w current pathologic fracture, L3 Continued balance issues over the past year; 3 falls reported without any loss of consciousness Uses a walker for ambulatory assistance H/O T12 burst fracture s/p T12 kyphoplasty with Dr. Carmen lumbar spine CT: New mild L3 compression fracture. Multiple old compression f racture status post multilevel vertebroplasty. Responded well with Tylenol; will continue PRN; conservative treatment Consider ortho eval and DEXA scan for OP OPT for f/u. Last DEXA was 02/2017. Zscore: -2.2 in femoral neck. Takes Calcium and D3; continue. May consider biphosphonate therapy like alendronate or Prolia Complains of persistence of pain and wants to have Ortho evaluation for possible surgery Dr. Carmen consulted-appreciate input and recommendation Patient is complaining of more pain and will need to adjust pain medications She denies any radiculopathic symptoms-we will continue with PT and OT Still complains significant pain in the back and awaiting an MRI No bladder and/or bowel issues except constipation 04/17 Status post kyphoplasty L3 on 04/16/2022 pain well controlled very tired would like to be stronger before transferring to inpatient Rehab Chronic hyponatremia Has chronic hyponatremia Na stable at 134 r/o COVID 2nd COVID test ordered Constipation Milk of Mag PRN added Peripheral Neuropathy: States neuropathy contributes to her falls. Takes Gabapentin 100 mg PO BID; will increase to 300 mg TID. -- denies leg pain today Seizure Disorder: Stable without focal deficit. last seizure was in 07/2021. Follows Neuro Loren Pérez PA-C. Last appt 03/01/[address] Takes Keppra, Trileptal, Depakote with doses as indicated. Valproic Acid level normal Oxycarbazepine level pending LFTs pending-pertinent normal -- no recurrence of seizure on exam Hypothyroidism: Stable; continue Synthroid TSH on 11/12/21: 2.78 Disposition: PCP: Dr. Hay Code Status: Full Code VTE Prophlyaxis: As per Ortho Disposition transfer to [facility] when medically stable Admission and Anticipated Discharge Date Admission Date: April 12, 2022 Subjective ff up for fall, etc seen resting in bed, comfortable states she feels tired also has sore throat, nasal congestion, dry cough, no shortness of breath, chest pain would like diet to be advanced no chest pain, dyspnea, palpitations, dizziness no other symptoms Review of Systems Review of Systems: all noted and negative except for above Physical Exam Physical Exam: General- oriented x 3, not in distress, speaks in sentences with no effort or accessory muscle use Eyes- anicteric Neck- no JVD Throat- mild erythema, no exudates Lungs- clear breath sounds bilaterally, no rales/wheezes Heart- normal rate, regular rhythm; no murmurs Abdomen- normal bowel sounds, nondistended, soft, nontender Extremities- trace pretibial edema, no calf tenderness Neuro- alert, oriented x 3; no gross focal neurologic deficits Skin- warm & dry Results & Data Results & Data ([facility]) Vital Signs (Past 12 Hours) Vital Signs Temp Pulse Resp BP BP Pulse Ox O2 Del Method 04/17/22 11:05 37.8 C H 97 H 18 122/80 94 Room Air 04/17/22 07:11 36.7 C 81 18 124/80 94 Room Air 04/17/22 04:00 36.8 C 70 18 130/78 90 Room Air all noted and reviewed including below (1) Fall Encounter type: initial encounter Qualified Code(s): W19.XXXA - Unspecified fall, initial encounter
[2022-04-17 15:03] LABS: Influenza A virus by PCR Negative (Neg); Influenza B virus by PCR Negative (Neg); RSV by PCR Negative (Neg); SARS CoV2 RNA(COVID-19) InHosp NEGATIVE (Negative)
[2022-04-17] MEDS: ACETAMINOPHEN 500 MG TAB PO PRN (20:28)
[2022-04-17] MEDS: DIVALPROEX EXTENDED RELEASE 500 MG TAB PO SCH (20:29)
[2022-04-17] MEDS: ESZOPICLONE 1 MG TAB PO SCH (21:28)
[2022-04-18] MEDS: LEVOTHYROXINE SODIUM 75 MCG TABLET PO SCH (05:54)
[2022-04-18] MEDS: oxyCODONE HCL IR 5 MG TAB (IMMEDIATE RELEASE) PO PRN ×3 (05:56→20:14)
[2022-04-18 08:05] LABS: Hematocrit (blood only) 39.5 % (34.1-44.9); Hemoglobin 13.4 g/dl (12.0-16.0); Mean Corpuscular Hgb Conc 33.9 g/dL (32.0-36.0); Mean Corpuscular Volume 94.3 fL (80.0-100.0); Mean Platelet Volume 9.4 fL (9.4-12.3); Platelet Count 166 K/uL (130-400); RDW Coefficient of Variation 12.9 % (11.5-14.5); RDW Standard Deviation 44.5 fL (36.4-46.3); Red Blood Count 4.19 M/uL (3.93-5.22); White Blood Count 3.15 K/ul (4.8-10.8)
[2022-04-18] MEDS: GABAPENTIN 100 MG CAP PO SCH ×3 (08:18→20:16)
[2022-04-18] MEDS: OXcarbazepine 150 MG TABLET PO SCH ×2 (08:18→20:15)
[2022-04-18] MEDS: DOCUSATE SODIUM/SENNA 50/8.6MG TAB PO SCH (08:18)
[2022-04-18] MEDS: levETIRAcetam 500 MG TAB PO SCH ×2 (08:19→20:16)
[2022-04-18] MEDS: CALCIUM 600MG + VIT D 400 IU TAB PO SCH ×2 (08:19→20:16)
[2022-04-18] MEDS: PSYLLIUM or GUAR GUM FIBER POWDER PACKET PO SCH ×2 (08:19→08:21)
--- NOTE | 2022-04-18 16:27 | Hospitalist Progress Note ---
Date of Service April 18, 2022 Assessment & Plan (1) Compression fracture: (2) Fall: (3) Ambulatory dysfunction: (4) Seizure disorder: (5) Hypothyroidism: (6) Peripheral neuropathy: Plan per Dr. Wiley's notes with addendum: Ms. Shah is a 71 year old female who presenting wit multiple falls. Pt with three falls over past year. L3 compression fx found today with multiple old compression fractures. Pt has had a T12 kyphoplasty with Dr. Carmen in past. Pt has H/O seizures, sees Dr. Pérez; stable and takes Keppra, Trileptal, Depakote. Pt will be admitted for pain control and observation. Fall Ambulatory Dysfunction: Compression Fracture:Secondary to Age-related osteoporosis w current pathologic fracture, L3 Continued balance issues over the past year; 3 falls reported without any loss of consciousness Uses a walker for ambulatory assistance H/O T12 burst fracture s/p T12 kyphoplasty with Dr. Carmen lumbar spine CT: New mild L3 compression fracture. Multiple old compression f racture status post multilevel vertebroplasty. Responded well with Tylenol; will continue PRN; conservative treatment Consider ortho eval and DEXA scan for OP OPT for f/u. Last DEXA was 02/2017. Zscore: -2.2 in femoral neck. Takes Calcium and D3; continue. May consider biphosphonate therapy like alendronate or Prolia Complains of persistence of pain and wants to have Ortho evaluation for possible surgery Dr. Carmen consulted-appreciate input and recommendation Patient is complaining of more pain and will need to adjust pain medications She denies any radiculopathic symptoms-we will continue with PT and OT Still complains significant pain in the back and awaiting an MRI No bladder and/or bowel issues except constipation 04/18 Status post kyphoplasty L3 on 04/16/2022 pain improving anticipate d/c to [facility] tomorrow Chronic Hyponatremia Has chronic hyponatremia Na stable at 134 r/o COVID 2nd COVID test ordered Constipation Milk of Mag PRN added Peripheral Neuropathy: States neuropathy contributes to her falls. Takes Gabapentin 100 mg PO BID; will increase to 300 mg TID. -- denies leg pain today Seizure Disorder: Stable without focal deficit. last seizure was in 07/2021. Follows Artur Pérez PA-C. Last appt 03/01/[address] Takes Keppra, Trileptal, Depakote with doses as indicated. Valproic Acid level normal Oxycarbazepine level pending LFTs pending-pertinent normal -- no recurrence of seizure on exam Hypothyroidism: Stable; continue Synthroid TSH on 11/12/21: 2.78 Disposition: PCP: Dr. Hay Code Status: Full Code VTE Prophlyaxis: As per Ortho Disposition: transfer to [facility] when medically stable Admission and Anticipated Discharge Date Admission Date: April 12, 2022 Subjective ff up for compression fracture, etc seen resting in bed, comfortable states she feels improved today back pain also better compared to yesterday- still significant though no chest pain, dyspnea, palpitations, dizziness no other symptoms Review of Systems Review of Systems: all noted and negative except for above Physical Exam Physical Exam: General- oriented x 3, not in distress, speaks in sentences with no effort or accessory muscle use Eyes- anicteric Neck- no JVD Lungs- clear BS bilaterally, no rales/wheezes Heart- normal rate, regular rhythm; no murmurs Abdomen- normal BS, nondistended, soft, nontender Extremities- no pretibial edema, no calf tenderness Neuro- alert, oriented x 3; no gross focal neurologic deficits Skin- warm & dry Results & Data Results & Data ([facility]) Vital Signs (Past 12 Hours) Vital Signs Temp Pulse Resp BP BP Pulse Ox O2 Del Method 04/18/22 14:56 36.7 C 75 16 105/70 94 Room Air 04/18/22 07:17 37.2 C 67 16 118/78 95 Room Air all noted and reviewed including below (1) Fall Encounter type: initial encounter Qualified Code(s): W19.XXXA - Unspecified fall, initial encounter
[2022-04-18] MEDS: DIVALPROEX EXTENDED RELEASE 500 MG TAB PO SCH (20:15)
[2022-04-18] MEDS: ESZOPICLONE 1 MG TAB PO SCH (23:02)
[2022-04-19] MEDS: LEVOTHYROXINE SODIUM 75 MCG TABLET PO SCH (05:33)
[2022-04-19] MEDS: levETIRAcetam 500 MG TAB PO SCH (08:20)
[2022-04-19] MEDS: OXcarbazepine 150 MG TABLET PO SCH (08:20)
[2022-04-19] MEDS: GABAPENTIN 100 MG CAP PO SCH ×2 (08:20→14:53)
[2022-04-19] MEDS: DOCUSATE SODIUM/SENNA 50/8.6MG TAB PO SCH (08:21)
[2022-04-19] MEDS: CALCIUM 600MG + VIT D 400 IU TAB PO SCH (08:21)
[2022-04-19] MEDS: PSYLLIUM or GUAR GUM FIBER POWDER PACKET PO SCH (08:22)
--- NOTE | 2022-04-19 11:26 | Hospitalist Progress Note ---
Date of Service April 19, 2022 Assessment & Plan (1) Compression fracture: (2) Fall: (3) Ambulatory dysfunction: (4) Seizure disorder: (5) Hypothyroidism: (6) Peripheral neuropathy: Plan per Dr. Wiley's notes with addendum: Ms. Shah is a 71 year old female who presenting wit multiple falls. Pt with three falls over past year. L3 compression fx found today with multiple old compression fractures. Pt has had a T12 kyphoplasty with Dr. Carmen in past. Pt has H/O seizures, sees Dr. Pérez; stable and takes Keppra, Trileptal, Depakote. Pt will be admitted for pain control and observation. Fall Ambulatory Dysfunction: Compression Fracture:Secondary to Age-related osteoporosis w current pathologic fracture, L3 Continued balance issues over the past year; 3 falls reported without any loss of consciousness Uses a walker for ambulatory assistance H/O T12 burst fracture s/p T12 kyphoplasty with Dr. Carmen lumbar spine CT: New mild L3 compression fracture. Multiple old compression f racture status post multilevel vertebroplasty. 04/19 Status post kyphoplasty L3 on 04/16/[address] Kevin Carmen pain improving, well controlled Continue PT and OT Follow-up with Dr. Carmen in 1 to 2 weeks Chronic Hyponatremia Has chronic hyponatremia Na stable at 134 Constipation Milk of Mag PRN added Urinary frequency Seems to be chronic Check urinalysis Monitor Peripheral Neuropathy: States neuropathy contributes to her falls. Takes Gabapentin 100 mg PO BID; will increase to 300 mg TID. -- denies leg pain now Seizure Disorder: Stable without focal deficit. last seizure was in 07/2021. Follows Neuro Loren Pérez PA-C. Last appt 03/01/[address] Takes Keppra, Trileptal, Depakote with doses as indicated. Valproic Acid level normal Oxycarbazepine level pending LFTs pending-pertinent normal -- no recurrence of seizure on exam Hypothyroidism: Stable; continue Synthroid TSH on 11/12/21: 2.78 Disposition: PCP: Dr. Hay Code Status: Full Code VTE Prophlyaxis: As per Ortho Disposition: transfer to [facility] Follow-up with PCP upon discharge Admission and Anticipated Discharge Date Admission Date: April 12, 2022 Subjective ff up for s/p kyphoplasty, etc. Seen resting in bed, comfortable, not in distress States she feels fine overall Had urinary frequency overnight, but also happens at home as per patient Denies abdominal pain, dysuria, fevers or chills, flank pain Back pain well controlled no chest pain, dyspnea, palpitations, dizziness No other symptoms States she is ready for discharge today to [facility] Review of Systems Review of Systems: all noted and negative except for above Physical Exam Physical Exam: General- oriented x 3, not in distress, speaks in sentences with no effort or accessory muscle use Eyes- anicteric Neck- no JVD Lungs- clear breath sounds bilaterally, no rales/wheezes Heart- normal rate, regular rhythm; no murmurs Abdomen- normal bowel sounds, nondistended, soft, nontender Extremities- no pretibial edema, no calf tenderness Neuro- alert, oriented x 3; no gross focal neurologic deficits Skin- warm & dry Results & Data Results & Data ([facility]) Vital Signs (Past 12 Hours) Vital Signs Temp Pulse Resp BP Pulse Ox O2 Del Method 04/19/22 07:30 Room Air 04/19/22 07:38 36.8 C 70 16 125/86 92 Room Air all noted and reviewed including below (1) Fall Encounter type: initial encounter Qualified Code(s): W19.XXXA - Unspecified fall, initial encounter
--- NOTE | 2022-04-19 11:49 | Discharge Summary ---
Date of Service April 19, 2022 Admission HPI Per Admitting Provider Ms. Shah is a 71 year old female who presented to the [facility] via EMS after pressing her life alert. Pt was getting up in the middle of the night and fell on her bottom. She denies LOC or hitting her head. She reports using her walker typically. Pt denies RIBERA, dizziness, CP, palpitations, N/V/D. She reports a dry cough over the last week, but is vaccinated against covid and has had two boosters. She reports having an episode of diarrhea over the past week once or twice during the day. PMH includes: ambulatory dysfunction, syncope, hypothyroidism, seizure disorder, FORREST, SVT with her walker going to the bathroom. She denies hitting her head. Shes currently at home alone and her is currently admitted at the hospital; hence why she will stay here for overnight. A lumbar X-ray was obtained and results indicated that she has a L3 compression fracture. Patient has received Tylenol and stated that has helped her pain. Patient will be admitted for continued evaluation and management. Please see A/P for further details. Admission Exam Per Admitting Provider Neuro: AAOx4, PERRLA, no aphagia, memory changes, CNII-XII grossly intact HEENT: head normocephalic, moist mucus membranes CV: S1/S2, (-) M/G/R, (-) edema, cap refill < 3 seconds Resp: Lungs CTA in all ruiz. On RA GI: Abdomen S/NT/ND, Ax4 bowel sounds, (-) CVA tenderness Musculoskeletal: 5/5 B/L UE strength, 5/5 B/L LE strength. Uses a walker assist device Skin: (-) rashes , (-) erythema. Psych: euthymic mood Principal Diagnosis L3 pathologic compression fracture, mechanical fall Status post kyphoplasty 04/16/2022 Discharge Exam General- oriented x 3, not in distress, speaks in sentences with no effort or accessory muscle use Eyes- anicteric Neck- no JVD Lungs- clear breath sounds bilaterally, no rales/wheezes Heart- normal rate, regular rhythm; no murmurs Abdomen- normal bowel sounds, nondistended, soft, nontender Extremities- no pretibial edema, no calf tenderness Neuro- alert, oriented x 3; no gross focal neurologic deficits Skin- warm & dry Discharge Data Allergies Allergy/AdvReac Type Severity Reaction Status Date / Time amoxicillin Allergy Rash Verified 04/16/22 13:49 Consultations 04/12/22 09:57 ED Decision to Admit Stat 04/13/22 11:41 Consult Orthopedic Surgery Routine Procedures Performed Operation Date: 04/16/22 08:20 Actual Procedures p Kyphoplasty L3(Not Applicable) - Kevin Carmen DO Ordered Studies 04/12/22 07:30 CT head/brain wo con Stat Brain parenchyma: There is age-related involutional change noting mild subcortical and periventricular microangiopathic disease. There is no hemorrhage, mass effect, or evidence of acute territorial ischemia by CT criteria. Mendoza-white matter differentiation is preserved. No extra-axial fluid collection is seen. Ventricles, sulci, cisterns: Prominent secondary to involutional change. Intracranial vasculature: There is atherosclerotic calcification of the cavernous carotid artery. Calvarium: The skeletal structures are osteopenic. No depressed calvarial fracture is identified. Sinuses and mastoids: The visualized paranasal sinuses are clear. The mastoid air cells are well pneumatized. Orbits: The bony orbits are grossly intact. There is a left ocular lens implant. IMPRESSION: There is no hemorrhage, mass effect, or evidence of acute territorial ischemia by CT criteria. ACT 112: Negative or not required by law. 04/12/22 07:36 CT lumbar spine wo con Stat 04/16/22 06:53 MR lumbar spine wo con Routine 04/16/22 13:30 FL lumbar spine 2-3V Routine Hospital Course (1) Compression fracture: (2) Fall: (3) Ambulatory dysfunction: (4) Seizure disorder: (5) Hypothyroidism: (6) Peripheral neuropathy: Plan per Dr. Wiley's notes with addendum: Ms. Shah is a 71 year old female who presenting wit multiple falls. Pt with three falls over past year. L3 compression fx found today with multiple old compression fractures. Pt has had a T12 kyphoplasty with Dr. Carmen in past. Pt has H/O seizures, sees Dr. Pérez; stable and takes Keppra, Trileptal, Depakote. Pt will be admitted for pain control and observation. Fall Ambulatory Dysfunction: Compression Fracture:Secondary to Age-related osteoporosis w current pathologic fracture, L3 Continued balance issues over the past year; 3 falls reported without any loss of consciousness Uses a walker for ambulatory assistance H/O T12 burst fracture s/p T12 kyphoplasty with Dr. Carmen lumbar spine CT: New mild L3 compression fracture. Multiple old compression fracture status post multilevel vertebroplasty. 04/19 Status post kyphoplasty L3 on 04/16/[address] Kevin Carmen pain improving, well controlled Continue PT and OT Follow-up with Dr. Carmen in 1 to 2 weeks Chronic Hyponatremia Has chronic hyponatremia Na stable at 134 Constipation Milk of Mag PRN added Urinary frequency Seems to be chronic Check urinalysis Monitor Peripheral Neuropathy: States neuropathy contributes to her falls. Takes Gabapentin 100 mg PO BID; will increase to 300 mg TID. -- denies leg pain now Seizure Disorder: Stable without focal deficit. last seizure was in 07/2021. Follows Neuro Loren Pérez PA-C. Last appt 03/01/[address] Takes Keppra, Trileptal, Depakote with doses as indicated. Valproic Acid level normal Oxycarbazepine level pending LFTs pending-pertinent normal -- no recurrence of seizure on exam Hypothyroidism: Stable; continue Synthroid TSH on 11/12/21: 2.78 Disposition: PCP: Dr. Hay Code Status: Full Code VTE Prophlyaxis: As per Ortho Disposition: transfer to [facility] Follow-up with PCP upon discharge Total Time Total Time Spent Total Time Spent (In Minutes): >30 minutes Discharge Plan Discharge Items Patient Disposition: Transfer Inpatient Rehab Fac Reason For Visit: FALL Discharge Diagnosis: L3 pathologic compression fracture Status post fall Status post kyphoplasty 04/16/2022 Activity: As commented below Activity Comment: Continue PT and OT evaluation, fall precautions Lifting: No more than 5 pounds Exercise/Sports: Wait until after follow-up appointment Driving/Machine Use: No driving until reevaluated and allowed by primary care physician Non-emergency contact: Primary Care Provider and Surgeon Call non-emergency contact if: you have any medication questions, your symptoms worsen, your pain is not controlled, your pain is worsening, your pain is unusual for you, your pain is concerning for you and you have a fever Follow-up/Referrals: Kevin Carmen DO [Surgeon] - Kiki Hay MD [Primary Care Provider] - Diet: Heart Healthy Addtl Attending Provider Instructions: Please avoid lifting more than 5 pounds. Patient may shower postop day #2 and follow-up in the office in 2 weeks. Please refer to accompanying hospital discharge summary for further details. Pending Studies at Discharge: No Stand-Alone Forms: My [facility] Skilled Items Patient informed of condition?: Yes DNR: No Discharge Level of Care: Skilled Communicable Disease: No Discharge Prognosis: Stable Lines: None Urinary Catheter: No Medications and DC Order Prescriptions: New gabapentin 100 mg Capsule 200 mg PO TID 14 Days Qty: 84 0RF sennosides-docusate sodium [Senokot-S] 8.6-50 mg Tablet 1 tab PO QAM 14 Days Qty: 14 0RF oxycodone 5 mg Tablet 5 mg PO Q4H PRN (Reason: Moderate to severe pain) Qty: 14 0RF Caltrate 600-D Plus Minerals 600 mg calcium- 800 unit-50 mg Tablet 1 tab PO BID 30 Days Qty: 60 0RF Continued oxcarbazepine 150 mg tablet 450 mg PO DAILY levetiracetam 500 mg tablet 250 mg PO HS acetaminophen [Tylenol Extra Strength] 500 mg Tablet 1,000 mg PO Q6H PRN (Reason: Pain) levothyroxine [Euthyrox] 75 mcg tablet 75 mcg PO DAILY divalproex 500 mg tablet extended release 24 hr 1,000 mg PO HS eszopiclone 2 mg tablet 2 mg PO HS Discharge Orders: Discharge Order (Routine); Ordered 04/19/22 Ordered By: Xavier Fay Admission Data Admit Date/Time: 04/12/22 10:03 Attending Provider: Xavier Fay Admit Provider: Patrick Pruitt Primary Care Provider: Kiki Hay Other Providers: Patrick Pruitt ; Kevin Carmen ; Gabino Wiley ; [facility]
[2022-04-19] MEDS: oxyCODONE HCL IR 5 MG TAB (IMMEDIATE RELEASE) PO PRN (13:58)
== END 2022-04-19 15:20 | DRG 478 ==
LOC: ED 07:15 → EDINP 10:03 → SUATTDRO 10:03 → EDINP 12:24 → 3W 14:06

== ENCOUNTER 2022-09-28 09:05 | Inpatient (IN) ==
[2022-09-28 09:33] LABS: Basophils # (auto) 0.03 K/uL (0-0.2); Basophils % (auto) 0.4 %; Eosinophils # (auto) 0.08 K/uL (0-0.50); Eosinophils % (auto) 1.1 %; Hematocrit (blood only) 40.1 % (37.0-47.0); Hemoglobin 14.2 g/dl (12.0-16.0); Immature Granulocytes # (auto) 0.04 K/uL (0.01-0.20); Immature Granulocytes % (auto) 0.5 %; Lymphocytes # (auto) 0.85 K/uL (1.2-3.4); Lymphocytes % (auto) 11.2 %; Mean Corpuscular Hemoglobin 32.8 pg (25.0-34.0); Mean Corpuscular Hgb Conc 35.4 g/dL (32.0-36.0); Mean Corpuscular Volume 92.6 fL (80.0-100.0); Monocytes # (auto) 0.63 K/uL (0.11-0.59); Monocytes % (auto) 8.3 %; Neutrophils # (auto) 5.93 K/uL (1.40-6.50); Neutrophils % (auto) 78.5 %; Platelet Count 234 K/uL (130-400); RDW Coefficient of Variation 12.7 % (11.5-14.5); RDW Standard Deviation 43.7 fL (36.4-46.3); Red Blood Count 4.33 M/uL (4.20-5.40); White Blood Count 7.56 K/ul (4.8-10.8)
--- NOTE | 2022-09-28 09:33 | Emergency Department Note ---
Impression & Plan Falls frequently, Acute non-ST elevation myocardial infarction (NSTEMI), Hypomagnesemia, Elevated troponin I level, Contusion of multiple sites, Acute hyponatremia, Acute UTI (urinary tract infection) ED Provider Note NAME: STEVIE CA AGE: 71 SEX: F : 1950 ARRIVES VIA: Ambulance INFORMANT: Patient, ED PROVIDER(S): Yehuda Zelaya DO CHIEF COMPLAINT: Falls HPI: The patient is a 71-year-old female who presented to the emergency depa rtment by ambulance for an evaluation after a fall. The patient states that she was trying to get out of her lift chair. She was unable to stand and when she got up she fell to the ground. She states that she injured both knees as well as her right foot. She has had frequent falls recently. She is had 3 falls this week alone. She denies having any head injury. She denies having any nausea. She denies having any chest pain or difficulty breathing. The patient states that she just feels increasingly weak. She does live at home with her significant other. She has had no recent cough or fever. She has had no new medications. ROS: See above HPI for pertinent positives & negatives. A total of 10 systems reviewed and were otherwise negative. PAST MEDICAL HISTORY: See Below PAST SURGICAL HISTORY: See Below FAMILY HISTORY: See Below SOCIAL HISTORY: See Below HOME MEDICATIONS: See Below ALLERGIES: See Below VITALS: See Below PHYSICAL EXAMINATION: GENERAL: Patient is awake alert in no acute distress patient is resting comfortably and showing no signs of anxiety EYES: The conjunctivae are clear. The pupils are round and reactive. EARS, NOSE, MOUTH AND THROAT: The nose is without any evidence of any deformity NECK: The neck is nontender and supple. RESPIRATORY: Normal respiratory effort is noted there is no evidence of wheezing rhonchi or rales CARDIOVASCULAR: Regular rate and rhythm noted there no murmurs rubs or gallops normal S1 normal S2. GASTROINTESTINAL: The abdomen is soft. Abdomen is nontender. BACK: There is no midline tenderness. There is no step-off. Range of motion appears intact. MUSCULOSKELETAL/EXTREMITIES: There is ecchymosis noted over the anterior chest wall. There was ecchymosis noted over both knees. Range of motion of both knees is intact however painful with the left knee. There is also ecchymosis over the fourth right toe. There is tenderness to palpation. SKIN: Skin is warm and dry. Pedal edema was noted bilaterally. NEUROLOGIC: Patient is awake alert and oriented x3. Strength is symmetric but diminished. MEDICAL DECISION MAKING: The patient is a 71-year-old female who presented to the emergency department for generalized weakness and frequent falls. The patient states that she had 3 falls over the last few days. She presented to the emergency department by ambulance. She was unable to stand. The patient appears to have some degree of generalized weakness. The patient was reevaluated multiple times. I discussed the patient's laboratory and radiographic studies with her. Given her findings I also discussed her condition with the on-call [facility]. They have agreed to evaluate the patient in the emergency department. The patient complains of no chest pain but she has EKG changes as well as an elevation in her troponin. I feel this is consistent with an NSTEMI. She was also found to have signs of urinary tract infection on urinalysis. She was treated with an antibiotic. The patient did not appear to have any traumatic injury other than a toe fracture on x-ray. Otherwise CT of the head and neck showed no acute disease. The patient was agreeable to this plan. She was also treated with magnesium replacement. Triage Nursing notes reviewed. Prior medical records reviewed Vital Signs: reviewed and remarkable for no significant abnormalities Differential diagnosis: Infection, dehydration, metabolic abnormality, hypo/hyperglycemia, electrolyte disturbance, anemia, hypoxia, cardiac sources, intracerebral event, toxicologic, neurologic, as well as other pathologies. ER treatment provided: See below Diagnostics interpreted by me: ECG: EKG was obtained in the emergency department. My interpretation is sinus rhythm at 86 bpm. There is no ectopy. Inferior and low lateral ST depressions were noted. This was compared to a tracing from April 12, 2022. The ST segment abnormalities are new compared to the previous tracing Cardiac Monitoring: An order was placed for continuous cardiac monitoring. The monitor shows a rate of 90 bpm with sinus rhythm. Laboratory studies: As stated above and show below. Imaging studies: See below. Radiographic imaging was reviewed by myself Consultation(s): I discussed this case with Geovanna who is on-call for the [facility]. They will evaluate the patient in the emergency department. Past Med/Surg History Medical History Cancer SKIN CANCER Compression fracture Deep vein thrombosis Hallucination Hallucinations (05/29/11) Hearing deficit Hypothyroidism Hypothyroidism On home oxygen therapy [place] OXYGEN AT NIGHT (UNSURE OF LITER) Peripheral neuropathy Psychosis Pulmonary embolism Seizure LAST EPISODE (THIS YEAR/UNSURE OF DATE) ? SEIZURE TYPE>FOLLOWS WITH DR. PHOENIX. OLD RECORDS NOTE EPILEPSY Seizure disorder Sleep apnea NO DEVICE USED NOW (CPAP USED IN PAST) Witnessed seizure-like activity Surgical History History of adenoidectomy History of bilateral tubal ligation History of colonoscopy History of tonsillectomy History of tooth extraction Family History Mother Family hx of colon cancer Social History Smoking Status: Never smoker Second Hand Exposure: Yes (Family members smoked during childhood); Hx Alcohol Use: No Hx Substance Use: No Preferred Language: Bulgarian Communication Ability: Effective Coding Compliance Specialist Required: No Beliefs That Will Affect Care: None marital status: Current Living Situation: Spouse Current Living Situation Comment: Spouse is also hospitalized here at [facility] How many Children do You have: 5 Feels Safe at Home: Yes Assistive Devices: Stair Lift and Walker Allergies Allergies Allergy/AdvReac Type Severity Reaction Status Date / Time amoxicillin Allergy Rash Verified 04/16/22 13:49 Home Meds Home Medications Medication Instructions Recorded Confirmed acetaminophen 500 mg tablet 1,000 mg PO Q6H PRN Pain 10/31/21 09/28/22 (Tylenol Extra Strength) divalproex 500 mg tablet,extended 1,000 mg PO HS 10/31/21 09/28/22 release 24 hr eszopiclone 2 mg tablet 2 mg PO HS 10/31/21 09/28/22 levetiracetam 500 mg tablet 250 mg PO HS 10/31/21 09/28/22 levothyroxine 75 mcg tablet 75 mcg PO DAILY 10/31/21 09/28/22 (Euthyrox) oxcarbazepine 150 mg tablet 450 mg PO DAILY 10/31/21 09/28/22 meloxicam 7.5 mg tablet 7.5 mg PO DAILY 09/28/22 09/28/22 Results & Data (ED) Vital Signs Vital Signs - 24 hr 09/28/22 09:19 09/28/22 09:15 09/28/22 11:04 Temperature 37.2 C Temperature Source Oral Pulse Rate 90 85 Pulse Rate from SpO2 Sensor 83 Respiratory Rate 18 16 Respiratory Effort / Characteristics Non-Labored Spontaneous Respiratory Depth Normal Respiratory Pattern Regular Blood Pressure 112/76 120/71 Blood Pressure Mean 88 87 Pulse Oximetry 94 95 Oxygen Delivery Method Room Air Sepsis Recent Fever Within 48 Hours No Sepsis New/Unexplained Change in Mental Status N/A Sepsis Action Taken by Nursing No Action Required Home Medications Current Medication List: was personally reviewed by me Laboratory Data Attestation: I reviewed the patient's lab results. 09/28/22 09:15 09/28/22 09:15 Lab Results 09/28/22 09/28/22 09/28/22 Range/Units 09:15 09:15 09:15 WBC 7.56 (4.8-10.8) K/ul RBC 4.33 (4.20-5.40) M/uL Hgb 14.2 (12.0-16.0) g/dl Hct 40.1 (37.0-47.0) % MCV 92.6 (80.0-100.0) fL MCH 32.8 (25.0-34.0) pg MCHC 35.4 (32.0-36.0) g/dL RDW Std Deviation 43.7 (36.4-46.3) fL RDW Coeff of Benigno 12.7 (11.5-14.5) % Plt Count 234 (130-400) K/uL MPV 10.0 (9.4-12.4) fL Immature Gran % (Auto) 0.5 % Neut % (Auto) 78.5 % Lymph % (Auto) 11.2 % Pope % (Auto) 8.3 % Eos % (Auto) 1.1 % Baso % (Auto) 0.4 % Neut # (Auto) 5.93 (1.40-6.50) K/uL Lymph # (Auto) 0.85 L (1.2-3.4) K/uL Pope # (Auto) 0.63 H (0.11-0.59) K/uL Eos # (Auto) 0.08 (0-0.50) K/uL Baso # (Auto) 0.03 (0-0.2) K/uL Immature Gran # (Auto) 0.04 (0.01-0.20) K/uL PT (9.0-12.0) Seconds INR (0.9-1.1) APTT (21.0-31.0) Seconds PTT Ratio Sodium 126 L (136-145) mmol/L Potassium 3.9 (3.5-5.1) mmol/L Chloride 93 L (98-107) mmol/L Carbon Dioxide 26 (21-32) mmol/L Anion Gap 7 (3-11) BUN 11 (6-23) mg/dl Creatinine 0.57 L (0.6-1.2) mg/dl Est Cr Clr Drug Dosing 109.5 ml/min Est GFR ( Amer) 108.9 ml/min Est GFR (Non-Af Amer) 93.9 ml/min BUN/Creatinine Ratio 19.3 (10-20) Glucose 113 H (70-99(Fasting)) mg/dl Osmolality (280-300) mOsm/kg Calcium 9.4 (8.5-10.1) mg/dl Magnesium 1.6 L (1.7-2.4) mg/dl Total Bilirubin 0.7 (0.2-1.0) mg/dl AST 18 (13-39) U/L ALT 9 (7-52) U/L Alkaline Phosphatase 54 (34-104) U/L Total Creatine Kinase 98 (26-192) U/L Troponin I High Sens 1050.9 H* (0-14) pg/ml Total Protein 7.1 (6.0-8.3) gm/dl Albumin 4.0 (3.4-5.0) gm/dl Globulin 3.1 (2.5-4.0) gm/dl Albumin/Globulin Ratio 1.3 (0.9-2) TSH 4.410 (0.300-4.500) uIu/ml Urine Color Urine Appearance (Clear) Urine pH (4.5-7.5) Ur Specific Weston (1.000-1.030) Urine Protein (Negative) Urine Glucose (UA) (Negative) Urine Ketones (Negative) Urine Blood (Negative) Urine Nitrite (Negative) Urine Bilirubin (Negative) Urine Urobilinogen (Negative) Ur Leukocyte Esterase (Negative) Urine WBC (Auto) (0-5) /hpf Urine RBC (Auto) (0-4) /hpf U Hyaline Cast (Auto) (0-5) /lpf U Epithel Cells (Auto) (0-5) /lpf Urine Bacteria (Auto) (Negative) Ur Renal Epithelial Cell (0-5) /lpf Ur Random Sodium mmol/L SARS-CoV-2, RNA, NAAT (NEGATIVE) 09/28/22 09/28/22 09/28/22 Range/Units 09:59 10:49 10:56 WBC (4.8-10.8) K/ul RBC (4.20-5.40) M/uL Hgb (12.0-16.0) g/dl Hct (37.0-47.0) % MCV (80.0-100.0) fL MCH (25.0-34.0) pg MCHC (32.0-36.0) g/dL RDW Std Deviation (36.4-46.3) fL RDW Coeff of Benigno (11.5-14.5) % Plt Count (130-400) K/uL MPV (9.4-12.4) fL Immature Gran % (Auto) % Neut % (Auto) % Lymph % (Auto) % Pope % (Auto) % Eos % (Auto) % Baso % (Auto) % Neut # (Auto) (1.40-6.50) K/uL Lymph # (Auto) (1.2-3.4) K/uL Pope # (Auto) (0.11-0.59) K/uL Eos # (Auto) (0-0.50) K/uL Baso # (Auto) (0-0.2) K/uL Immature Gran # (Auto) (0.01-0.20) K/uL PT 11.4 (9.0-12.0) Seconds INR 1.1 (0.9-1.1) APTT 27.3 (21.0-31.0) Seconds PTT Ratio 1.0 Sodium (136-145) mmol/L Potassium (3.5-5.1) mmol/L Chloride (98-107) mmol/L Carbon Dioxide (21-32) mmol/L Anion Gap (3-11) BUN (6-23) mg/dl Creatinine (0.6-1.2) mg/dl Est Cr Clr Drug Dosing ml/min Est GFR ( Amer) ml/min Est GFR (Non-Af Amer) ml/min BUN/Creatinine Ratio (10-20) Glucose (70-99(Fasting)) mg/dl Osmolality 269 L (280-300) mOsm/kg Calcium (8.5-10.1) mg/dl Magnesium (1.7-2.4) mg/dl Total Bilirubin (0.2-1.0) mg/dl AST (13-39) U/L ALT (7-52) U/L Alkaline Phosphatase (34-104) U/L Total Creatine Kinase (26-192) U/L Troponin I High Sens (0-14) pg/ml Total Protein (6.0-8.3) gm/dl Albumin (3.4-5.0) gm/dl Globulin (2.5-4.0) gm/dl Albumin/Globulin Ratio (0.9-2) TSH (0.300-4.500) uIu/ml Urine Color Urine Appearance (Clear) Urine pH (4.5-7.5) Ur Specific Weston (1.000-1.030) Urine Protein (Negative) Urine Glucose (UA) (Negative) Urine Ketones (Negative) Urine Blood (Negative) Urine Nitrite (Negative) Urine Bilirubin (Negative) Urine Urobilinogen (Negative) Ur Leukocyte Esterase (Negative) Urine WBC (Auto) (0-5) /hpf Urine RBC (Auto) (0-4) /hpf U Hyaline Cast (Auto) (0-5) /lpf U Epithel Cells (Auto) (0-5) /lpf Urine Bacteria (Auto) (Negative) Ur Renal Epithelial Cell (0-5) /lpf Ur Random Sodium 11 mmol/L SARS-CoV-2, RNA, NAAT (NEGATIVE) 09/28/22 09/28/22 Range/Units 10:56 11:39 WBC (4.8-10.8) K/ul RBC (4.20-5.40) M/uL Hgb (12.0-16.0) g/dl Hct (37.0-47.0) % MCV (80.0-100.0) fL MCH (25.0-34.0) pg MCHC (32.0-36.0) g/dL RDW Std Deviation (36.4-46.3) fL RDW Coeff of Benigno (11.5-14.5) % Plt Count (130-400) K/uL MPV (9.4-12.4) fL Immature Gran % (Auto) % Neut % (Auto) % Lymph % (Auto) % Pope % (Auto) % Eos % (Auto) % Baso % (Auto) % Neut # (Auto) (1.40-6.50) K/uL Lymph # (Auto) (1.2-3.4) K/uL Pope # (Auto) (0.11-0.59) K/uL Eos # (Auto) (0-0.50) K/uL Baso # (Auto) (0-0.2) K/uL Immature Gran # (Auto) (0.01-0.20) K/uL PT (9.0-12.0) Seconds INR (0.9-1.1) APTT (21.0-31.0) Seconds PTT Ratio Sodium (136-145) mmol/L Potassium (3.5-5.1) mmol/L Chloride (98-107) mmol/L Carbon Dioxide (21-32) mmol/L Anion Gap (3-11) BUN (6-23) mg/dl Creatinine (0.6-1.2) mg/dl Est Cr Clr Drug Dosing ml/min Est GFR ( Amer) ml/min Est GFR (Non-Af Amer) ml/min BUN/Creatinine Ratio (10-20) Glucose (70-99(Fasting)) mg/dl Osmolality (280-300) mOsm/kg Calcium (8.5-10.1) mg/dl Magnesium (1.7-2.4) mg/dl Total Bilirubin (0.2-1.0) mg/dl AST (13-39) U/L ALT (7-52) U/L Alkaline Phosphatase (34-104) U/L Total Creatine Kinase (26-192) U/L Troponin I High Sens (0-14) pg/ml Total Protein (6.0-8.3) gm/dl Albumin (3.4-5.0) gm/dl Globulin (2.5-4.0) gm/dl Albumin/Globulin Ratio (0.9-2) TSH (0.300-4.500) uIu/ml Urine Color Dark Yellow Urine Appearance Cloudy A (Clear) Urine pH 6.0 (4.5-7.5) Ur Specific Weston 1.037 H (1.000-1.030) Urine Protein 2+ H (Negative) Urine Glucose (UA) Negative (Negative) Urine Ketones 2+ H (Negative) Urine Blood Negative (Negative) Urine Nitrite Positive A (Negative) Urine Bilirubin Negative (Negative) Urine Urobilinogen Negative (Negative) Ur Leukocyte Esterase Trace H (Negative) Urine WBC (Auto) 5-10 H (0-5) /hpf Urine RBC (Auto) 0-4 (0-4) /hpf U Hyaline Cast (Auto) 1-5 (0-5) /lpf U Epithel Cells (Auto) >30 H (0-5) /lpf Urine Bacteria (Auto) 2+ H (Negative) Ur Renal Epithelial Cell 0-5 (0-5) /lpf Ur Random Sodium mmol/L SARS-CoV-2, RNA, NAAT NEGATIVE (NEGATIVE) Administered Medications Discontinued Medications Magnesium Sulfate/Dextrose (Magnesium Sulfate / D5w) 1 gm in 100 mls @ 100 mls/hr IV NOW STA Stop: 09/28/22 11:12 Last Infusion: 09/28/22 12:00 Dose: 0 mls/hr Documented By: Admin: 09/28/22 11:03 Dose: 100 mls/hr Documented By: IN Ceftriaxone Sodium (Rocephin) 2,000 mg in 70 mls @ 140 mls/hr IV NOW STA Stop: 09/28/22 12:26 Last Admin: 09/28/22 12:09 Dose: 140 mls/hr Documented By: [facility] Imaging Data Radiologist's Impression: Cervical Spine CT 09/28/22 09:25 CT cervical spine wo con CLINICAL HISTORY: 71 years-old Female with fall. Acute neck pain status post fall COMPARISON: Head CT of same day, CT cervical spine 10/31/2021 TECHNIQUE: Multiple axial CT images of the cervical spine were obtained without contrast. A dose lowering technique was utilized adhering to the principles of ALARA. FINDINGS: Demineralized appearance the bones with multilevel degenerative changes, similar to prior. No acute cervical spine fracture or subluxation. No prevertebral edema. Heterogeneous multinodular thyroid. The visualized lung apices appear clear. IMPRESSION: No acute cervical spine fracture or subluxation. ACT 112: Negative or not required by law. The above report was generated using voice recognition software. It may contain grammatical, syntax or spelling errors. Electronically signed by: Dutch Pacheco M.D. 09/28/2022 11:04 AM Chest X-Ray 09/28/22 09:25 XR chest 1V portable HISTORY: 71 years-old Female fall acute chest trauma status post fall COMPARISON: 04/12/2022 TECHNIQUE: Supine AP view of the chest FINDINGS: Cardiomediastinal and hilar silhouettes are within normal limits. Loop recorder device. No pneumothorax, pleural effusion, airspace consolidation or overt pulmonary edema. Spondylitic spurring of the spine. IMPRESSION: No acute process. ACT 112: Negative or not required by law. The above report was generated using voice recognition software. It may contain grammatical, syntax or spelling errors. Electronically signed by: Dutch Pacheco M.D. 09/28/2022 10:06 AM Foot X-Ray 09/28/22 09:25 XR foot RT 2V HISTORY: 71 years-old Female fall acute pain of the right foot status post fall COMPARISON: None TECHNIQUE: 2 views of the right foot FINDINGS: There is an acute mildly impacted and slightly angulated intra-articular fracture involving the base of the fifth proximal phalanx. Demineralized appearance of the bones with mild to moderate osteoarthritis. Spurring of the calcaneus. Mild to moderate soft tissue swelling of the forefoot. No additional acute fracture or dislocation identified. IMPRESSION: Acute fifth proximal phalangeal fracture. ACT 112: Negative or not required by law. The above report was generated using voice recognition software. It may contain grammatical, syntax or spelling errors. Electronically signed by: Dutch Pacheco M.D. 09/28/2022 10:[address] 09/28/22 09:25 CT head/brain wo con CLINICAL HISTORY: 71 years-old Female with fall. Acute head trauma status post fall TECHNIQUE: Multiple axial CT images of the head were obtained without contrast. A dose lowering technique was utilized adhering to the principles of ALARA. CT DOSE: 917.19 mGy.cm COMPARISON: CT cervical spine of same day, head CT 04/12/2022 FINDINGS: No acute intracranial hemorrhage, midline shift, intracranial mass, territorial ischemia or abnormal extra-axial collection. Involutional changes with chronic microvascular ischemic disease. Unchanged ventriculomegaly. The calvarium is intact. Prior bilateral lens repair. The paranasal sinuses, mastoid air cells, and middle ear cavities are clear. IMPRESSION: No acute intracranial abnormality or calvarial fracture. ACT 112: Negative or not required by law. The above report was generated using voice recognition software. It may contain grammatical, syntax or spelling errors. Electronically signed by: Dutch Pacheco M.D. 09/28/2022 10:59 AM Knee X-Ray 09/28/22 09:25 XR knee LT 1 or 2V routine, XR knee RT 1 or 2V routine HISTORY: 71 years-old Female trauma acute bilateral knee pain status post fall COMPARISON: None TECHNIQUE: 2 views of the bilateral knees FINDINGS: LEFT: Demineralized appearance of the bones. Mild medial with moderate patellofemoral and lateral compartment osteoarthritis. No acute fracture, dislocation or osteochondral defect. Trace joint effusion. RIGHT: Demineralized appearance of the bones. Severe patellofemoral with mild to moderate medial and lateral compartment osteoarthritis. Trace joint effusion. No acute fracture, dislocation or osteochondral defect identified. Lateral soft tissue swelling. IMPRESSION: 1. No acute fracture or dislocation. 2. Osteoarthritis of the knees. ACT 112: Negative or not required by law. The above report was generated using voice recognition software. It may contain grammatical, syntax or spelling errors. Electronically signed by: Dutch Pacheco M.D. 09/28/2022 10:21 AM Knee X-Ray 09/28/22 09:25 XR knee LT 1 or 2V routine, XR knee RT 1 or 2V routine HISTORY: 71 years-old Female trauma acute bilateral knee pain status post fall COMPARISON: None TECHNIQUE: 2 views of the bilateral knees FINDINGS: LEFT: Demineralized appearance of the bones. Mild medial with moderate patellofemoral and lateral compartment osteoarthritis. No acute fracture, dislocation or osteochondral defect. Trace joint effusion. RIGHT: Demineralized appearance of the bones. Severe patellofemoral with mild to moderate medial and lateral compartment osteoarthritis. Trace joint effusion. No acute fracture, dislocation or osteochondral defect identified. Lateral soft tissue swelling. IMPRESSION: 1. No acute fracture or dislocation. 2. Osteoarthritis of the knees. ACT 112: Negative or not required by law. The above report was generated using voice recognition software. It may contain grammatical, syntax or spelling errors. Electronically signed by: Dutch Pacheco M.D. 09/28/2022 10:21 AM Pelvis X-Ray 09/28/22 09:25 XR pelvis 1-2V routine HISTORY: 71 years-old Female trauma acute pelvic pain status post fall COMPARISON: CT abdomen and pelvis 10/31/2021 TECHNIQUE: AP view of the pelvis FINDINGS: Moderate osteoarthritis of the hips. No acute fracture, dislocation or avascular necrosis. Moderate degeneration of the pubic symphysis and SI joints. Kyphoplasty changes of the lower lumbar spine. Unremarkable soft tissues. IMPRESSION: No acute fracture or dislocation identified. ACT 112: Negative or not required by law. The above report was generated using voice recognition software. It may contain grammatical, syntax or spelling errors. Electronically signed by: Dutch Pacheco M.D. 09/28/2022 10:19 AM Discharge Plan Visit Data Chief Complaint: Fall Stated Complaint: FALLS, DIFFICULTY AMBULATING ED Provider: Yehuda Zelaya Discharge Problem: Falls frequently, Acute non-ST elevation myocardial infarction (NSTEMI), Hypomagnesemia, Elevated troponin I level, Contusion of multiple sites, Acute hyponatremia, Acute UTI (urinary tract infection) Patient Disposition: Being Evaluated by Hospitalist Forms Stand Alone Forms: [facility] Prescriptions Prescriptions: No Action oxcarbazepine 150 mg tablet 450 mg PO DAILY levetiracetam 500 mg tablet 250 mg PO HS acetaminophen [Tylenol Extra Strength] 500 mg Tablet 1,000 mg PO Q6H PRN (Reason: Pain) levothyroxine [Euthyrox] 75 mcg tablet 75 mcg PO DAILY divalproex 500 mg tablet extended release 24 hr 1,000 mg PO HS eszopiclone 2 mg tablet 2 mg PO HS meloxicam 7.5 mg tablet 7.5 mg PO DAILY Referrals Referrals: PCP,NO [Physician] -
[2022-09-28 09:55] LABS: Albumin Globulin Ratio 1.3 (0.9-2); BUN Creatinine Ratio 19.3 (10-20); Bilirubin,Total 0.7 mg/dl (0.2-1.0); Calcium 9.4 mg/dl (8.5-10.1); Creatinine Clr Calc Pharmacy 109.5 ml/min; Est GFR (African American) 108.9 ml/min; Est GFR (Non-African American) 93.9 ml/min; Globulin 3.1 gm/dl (2.5-4.0); Magnesium 1.6 mg/dl (1.7-2.4); Potassium 3.9 mmol/L (3.5-5.1); Total Protein 7.1 gm/dl (6.0-8.3)
[2022-09-28 10:06] LABS: Troponin I High Sensitivity 1050.9 pg/ml (0-14)
--- NOTE | 2022-09-28 10:08 | XRay Report ---
XR chest 1V portable HISTORY: 71 years-old Female fall acute chest trauma status post fall COMPARISON: 04/12/2022 TECHNIQUE: Supine AP view of the chest FINDINGS: Cardiomediastinal and hilar silhouettes are within normal limits. Loop recorder device. No pneumothor ax, pleural effusion, airspace consolidation or overt pulmonary edema. Spondylitic spurring of the sp ine. IMPRESSION: No acute process. ACT 112: Negative or not required by law. The above report was generated using voice recognition software. It may contain grammatical, syntax o r spelling errors. Electronically signed by: Dutch Pacheco M.D. 09/28/2022 10:06 AM
[2022-09-28] MEDS ORDERED: MAGNESIUM SULFATE / D5W 1 GM/100 ML BAG IV STA (10:13)
--- NOTE | 2022-09-28 10:15 | XRay Report ---
XR foot RT 2V HISTORY: 71 years-old Female fall acute pain of the right foot status post fall COMPARISON: None TECHNIQUE: 2 views of the right foot FINDINGS: There is an acute mildly impacted and slightly angulated intra-articular fracture involving the base of the fifth proximal phalanx. Demineralized appearance of the bones with mild to moderate osteoarthr itis. Spurring of the calcaneus. Mild to moderate soft tissue swelling of the forefoot. No additional acute fracture or dislocation identified. IMPRESSION: Acute fifth proximal phalangeal fracture. ACT 112: Negative or not required by law. The above report was generated using voice recognition software. It may contain grammatical, syntax o r spelling errors. Electronically signed by: Dutch Pacheco M.D. 09/28/2022 10:14 AM
--- NOTE | 2022-09-28 10:21 | XRay Report ---
XR pelvis 1-2V routine HISTORY: 71 years-old Female trauma acute pelvic pain status post fall COMPARISON: CT abdomen and pelvis 10/31/2021 TECHNIQUE: AP view of the pelvis FINDINGS: Moderate osteoarthritis of the hips. No acute fracture, dislocation or avascular necrosis. Moderate d egeneration of the pubic symphysis and SI joints. Kyphoplasty changes of the lower lumbar spine. Unre markable soft tissues. IMPRESSION: No acute fracture or dislocation identified. ACT 112: Negative or not required by law. The above report was generated using voice recognition software. It may contain grammatical, syntax o r spelling errors. Electronically signed by: Dutch Pacheco M.D. 09/28/2022 10:19 AM
--- NOTE | 2022-09-28 10:23 | XRay Report ---
XR knee LT 1 or 2V routine, XR knee RT 1 or 2V routine HISTORY: 71 years-old Female trauma acute bilateral knee pain status post fall COMPARISON: None TECHNIQUE: 2 views of the bilateral knees FINDINGS: LEFT: Demineralized appearance of the bones. Mild medial with moderate patellofemoral and lateral compartme nt osteoarthritis. No acute fracture, dislocation or osteochondral defect. Trace joint effusion. RIGHT: Demineralized appearance of the bones. Severe patellofemoral with mild to moderate medial and lateral compartment osteoarthritis. Trace joint effusion. No acute fracture, dislocation or osteochondral de fect identified. Lateral soft tissue swelling. IMPRESSION: 1. No acute fracture or dislocation. 2. Osteoarthritis of the knees. ACT 112: Negative or not required by law. The above report was generated using voice recognition software. It may contain grammatical, syntax o r spelling errors. Electronically signed by: Dutch Pacheco M.D. 09/28/2022 10:21 AM
[2022-09-28 10:42] LABS: INR 1.1 (0.9-1.1); Partial Thromboplastin Time 27.3 Seconds (21.0-31.0); Prothrombin Time 11.4 Seconds (9.0-12.0)
--- NOTE | 2022-09-28 11:02 | CT Scan Report ---
CT head/brain wo con CLINICAL HISTORY: 71 years-old Female with fall. Acute head trauma status post fall TECHNIQUE: Multiple axial CT images of the head were obtained without contrast. A dose lowering tech nique was utilized adhering to the principles of ALARA. CT DOSE: 917.19 mGy.cm COMPARISON: CT cervical spine of same day, head CT 04/12/2022 FINDINGS: No acute intracranial hemorrhage, midline shift, intracranial mass, territorial ischemia or abnormal extra-axial collection. Involutional changes with chronic microvascular ischemic disease. Unchanged ventriculomegaly. The calvarium is intact. Prior bilateral lens repair. The paranasal sinuses, mastoid air cells, and m iddle ear cavities are clear. IMPRESSION: No acute intracranial abnormality or calvarial fracture. ACT 112: Negative or not required by law. The above report was generated using voice recognition software. It may contain grammatical, syntax o r spelling errors. Electronically signed by: Dutch Pacheco M.D. 09/28/2022 10:59 AM
--- NOTE | 2022-09-28 11:06 | CT Scan Report ---
CT cervical spine wo con CLINICAL HISTORY: 71 years-old Female with fall. Acute neck pain status post fall COMPARISON: Head CT of same day, CT cervical spine 10/31/2021 TECHNIQUE: Multiple axial CT images of the cervical spine were obtained without contrast. A dose low ering technique was utilized adhering to the principles of ALARA. FINDINGS: Demineralized appearance the bones with multilevel degenerative changes, similar to prior. No acute cervical spine fracture or subluxation. No prevertebral edema. Heterogeneous multinodular thyroid. The visualized lung apices appear clear. IMPRESSION: No acute cervical spine fracture or subluxation. ACT 112: Negative or not required by law. The above report was generated using voice recognition software. It may contain grammatical, syntax o r spelling errors. Electronically signed by: Dutch Pacheco M.D. 09/28/2022 11:04 AM
[2022-09-28 11:34] LABS: Appearance Urine Cloudy (Clear); Bacteria Urine Automated 2+ (Negative); Bilirubin Urine Negative (Negative); Blood Urine Negative (Negative); Color Urine Dark Yellow; Epithelial Cell Urine Auto >30 /lpf (0-5); Glucose Urine UA Negative (Negative); Ketones Urine 2+ (Negative); Leukocyte Esterase Urine Trace (Negative); Nitrite Urine Positive (Negative); Protein Urine 2+ (Negative); Specific Gravity Urine 1.037 (1.000-1.030); Urobilinogen Urine Negative (Negative)
--- NOTE | 2022-09-28 11:45 | Electrocardiogram Report ---
Test Reason : Blood Pressure : / mmHG Vent. Rate : 086 BPM Atrial Rate : 086 BPM P-R Int : 182 ms QRS Dur : 072 ms QT Int : 322 ms P-R-T Axes : 031 038 060 degrees QTc Int : 385 ms Normal sinus rhythm Nonspecific T wave abnormality Abnormal ECG When compared with ECG of 12-APR-2022 07:23, Nonspecific T wave abnormality now evident in Lateral leads Confirmed by Braeden Jameson ([id number]) on 09/28/2022 11:45:11 AM Referred By: REFERRED SELF Confirmed By:Braeden Jameson
[2022-09-28] MEDS ORDERED: cefTRIAXone SODIUM 2,000 MG/70 ML BAG IV STA (11:57)
[2022-09-28 12:04] LABS: RBC Urine Automated 0-4 /hpf (0-4)
[2022-09-28 12:05] LABS: Renal Epithelial Cells Urine 0-5 /lpf (0-5)
--- NOTE | 2022-09-28 12:29 | History & Physical Report ---
Date of Service September 28, 2022 Assessment & Plan (1) Falls frequently: Plan: 71 y/o female with a PMH of ambulatory dysfunction, multiple previous falls, prior compression fracture s/p kyphoplasty, seizure disorder, peripheral neuropathy, and hypothyroidism who presents to the ED with three falls in the last two days. Work-up in the ED for fractures was negative except for right toe fracture. However, noted to have a markedly elevated troponin >1000 but a question of EKG changes. Will need further cardiac work-up as well as therapy evaluations due to worsening ambulatory dysfunction - may need to consider additional rehab again. - Admit to PCU - Trend troponin, repeat EKG - since no active chest pain, if troponin stable or decreasing and no EKG changes on repeat, will hold heparin until seen by cardiology - Consult cardiology - PT/OT consults - Fall precautions (2) Acute non-ST elevation myocardial infarction (NSTEMI): Plan: See plan for #1 (3) Toe fracture, right: Plan: Consult ortho to determine if pt needs any additional stabilization or intervention for fracture (4) Hypomagnesemia: Plan: Repleted in the ED - recheck tomorrow (5) Acute hyponatremia: Plan: Will give NSS 500 cc fluid bolus - repeat Na later today (6) Acute UTI (urinary tract infection): Plan: Ceftriaxone started in the ED - will continue while culture pending (7) Seizure disorder: Plan: Continue outpatient medication regimen (8) Hypothyroidism: Plan: Pt recently started levothyroxine - will continue (9) Peripheral neuropathy: Plan: Continue gabapentin Plan Pt seen and reviewed with collaborating physician, Dr. Gonzalez. Plan of care discussed and as outlined above. Code Status: Full Code DVT Prophylaxis: Jr Rock PA-C History of Present Illness Chief Complaint: Fall, weakness Primary Care Provider: Kiki Hay MD This is a 71 y/o female with a PMH of seizure disorder, hypothyroidism, ambulat ory dysfunction, compression fracture, sleep apnea (not on CPAP), and prior DVT who presented to the ED today with three falls in the last two days with resultant knee pain. Of note, pt was admitted to [facility] in Apr 2022 for fall with resultant L3 compression fracture for which she underwent kyphoplasty. Ultimately discharged to [facility] for rehab before returning homoe. At home, she typically uses a walker and a lift chair. Yesterday, she was walking with her walker and there was a "dip" in the ground that she did not see. Lost her balance and fell onto her knees with resultant pain afterwards. Last evening, at home, her knees gave out on her while she was walking and she fell again. Thinks that she may have hit her head when she fell the second time. This morning, she was attempting to get out of her chair using her lift. While she was adjusting it higher, she slid out of the chair onto the ground, falling again. She did not hit her head this fall. Her main complaints at present are bilateral knee pain with movement and toe pain with movement. At rest, she denies any significant pain. She specifically denies chest pain, palpitation, dizziness, near-syncope/syncope, shortness of breath, visual disturbances, double vision, numbness, tingling. Allergies Allergy/AdvReac Type Severity Reaction Status Date / Time amoxicillin Allergy Rash Verified 04/16/22 13:49 Home Medications Medication Instructions Recorded Confirmed Type acetaminophen 500 mg tablet 1,000 mg PO Q6H PRN Pain 10/31/21 09/28/22 History (Tylenol Extra Strength) divalproex 500 mg tablet,extended 1,000 mg PO HS 10/31/21 09/28/22 History release 24 hr levetiracetam 500 mg tablet 500 mg PO BID 10/31/21 09/28/22 History levothyroxine 75 mcg tablet 75 mcg PO DAILY 10/31/21 09/28/22 History (Euthyrox) oxcarbazepine 150 mg tablet 450 mg PO BID 10/31/21 09/28/22 History gabapentin 300 mg capsule 300 mg PO BID 09/28/22 09/28/22 History meloxicam 7.5 mg tablet 7.5 mg PO DAILY 09/28/22 09/28/22 History Past Med/Surg History Medical History (Updated 09/28/22 @ 14:50 by Letha Rock PA-C) Cancer SKIN CANCER Compression fracture Deep vein thrombosis Hallucination Hallucinations (05/29/11) Hearing deficit Hypothyroidism Hypothyroidism On home oxygen therapy [place] OXYGEN AT NIGHT (UNSURE OF LITER) Peripheral neuropathy Psychosis Pulmonary embolism Seizure LAST EPISODE (THIS YEAR/UNSURE OF DATE) ? SEIZURE TYPE>FOLLOWS WITH DR. PHOENIX. OLD RECORDS NOTE EPILEPSY Seizure disorder Sleep apnea NO DEVICE USED NOW (CPAP USED IN PAST) Witnessed seizure-like activity Surgical History (Updated 09/28/22 @ 14:39 by Letha Rock PA-C) History of adenoidectomy History of bilateral tubal ligation History of colonoscopy History of kyphoplasty History of tonsillectomy History of tooth extraction Family History Mother Family hx of colon cancer Social History Smoking Status: Never smoker Second Hand Exposure: Yes (Family members smoked during childhood); Hx Alcohol Use: No Hx Substance Use: No Preferred Language: Sinhala Communication Ability: Effective Processing Engineer Required: No Beliefs That Will Affect Care: None marital status: Current Living Situation: Spouse How many Children do You have: 5 Feels Safe at Home: Yes Safety Concerns: Feels Safe At This Time Assistive Devices: Denture - Upper, Denture - Lower, Glasses, Hearing Aid - Bilateral, Stair Lift and Walker Review of Systems Review of Systems: All systems reviewed & are unremarkable except as noted in HPI & below Constitutional: + fatigue and + anorexia; no fever and no chills Eyes: no diplopia and no worsening vision Ear, Nose, Mouth, Throat: no nasal congestion and no sore throat Respiratory: no cough and no dyspnea Cardiovascular: no chest pain, no palpitations, no syncope and no edema Gastrointestinal: + nausea (last night but improved this AM); no vomiting, no diarrhea/loose stools and no blood in stools Genitourinary: no dysuria, no urinary frequency, no decreased urination and no hematuria Musculoskeletal: as per Subjective / HPI; no back pain and no neck pain Integumentary: no yellowing of the skin Neurologic: + unsteadiness, + falls and + generalized weakness; no dizziness and no headache(s) Physical Exam Constitutional: well developed and well nourished; no acute distress Eyes: PERRL, conjunctivae normal, anicteric sclerae ENMT: external ear and nose normal, oropharynx normal Neck: trachea midline Respiratory: no respiratory distress and no labored breathing Auscultation: lungs clear to auscultation bilaterally; no rales, no rhonchi and no wheezes Cardiovascular: Rate/Rhythm: regular rate and regular rhythm Vessels: dorsalis pedis pulses present and radial pulses present Extremities: no pedal edema Gastrointestinal (Abdomen): Inspection/Auscultation: normal bowel sounds; abdomen not distended Percussion/Palpation: abdomen soft; abdomen nontender Musculoskeletal: bilateral knees with mild swelling and tenderness - faint ecchymosis bilaterally, right knee with abrasion, pain with flexion Skin: no jaundice Neurologic: moves all extremities; no focal motor deficits and not confused Psychiatric: A+Ox3, euthymic affect Results & Data Results & Data ([facility]) Vital Signs (Past 12 Hours) Vital Signs Temp Pulse Resp BP Pulse Ox O2 Del Method 09/28/22 11:04 16 120/71 95 09/28/22 09:15 85 09/28/22 09:19 37.2 C 90 18 112/76 94 Room Air Laboratory Results Laboratory Results - last 24 hr 09/28/22 09/28/22 09/28/22 09:15 09:15 09:15 WBC 7.56 RBC 4.33 Hgb 14.2 Hct 40.1 MCV 92.6 MCH 32.8 MCHC 35.4 RDW Std Deviation 43.7 RDW Coeff of Benigno 12.7 Plt Count 234 MPV 10.0 Immature Gran % (Auto) 0.5 Neut % (Auto) 78.5 Lymph % (Auto) 11.2 George % (Auto) 8.3 Eos % (Auto) 1.1 Baso % (Auto) 0.4 Neut # (Auto) 5.93 Lymph # (Auto) 0.85 L George # (Auto) 0.63 H Eos # (Auto) 0.08 Baso # (Auto) 0.03 Immature Gran # (Auto) 0.04 PT INR APTT PTT Ratio Sodium 126 L Potassium 3.9 Chloride 93 L Carbon Dioxide 26 Anion Gap 7 BUN 11 Creatinine 0.57 L Est Cr Clr Drug Dosing 109.5 Est GFR ( Amer) 108.9 Est GFR (Non-Af Amer) 93.9 BUN/Creatinine Ratio 19.3 Glucose 113 H Osmolality Calcium 9.4 Magnesium 1.6 L Total Bilirubin 0.7 AST 18 ALT 9 Alkaline Phosphatase 54 Total Creatine Kinase 98 Troponin I High Sens 1050.9 H* Total Protein 7.1 Albumin 4.0 Globulin 3.1 Albumin/Globulin Ratio 1.3 TSH 4.410 Urine Color Urine Appearance Urine pH Ur Specific [place] Urine Protein Urine Glucose (UA) Urine Ketones Urine Blood Urine Nitrite Urine Bilirubin Urine Urobilinogen Ur Leukocyte Esterase Urine WBC (Auto) Urine RBC (Auto) U Hyaline Cast (Auto) U Epithel Cells (Auto) Urine Bacteria (Auto) Ur Renal Epithelial Cell Urine Crystals Urine Osmolality Ur Random Sodium Valproic Acid SARS-CoV-2, RNA, NAAT 09/28/22 09/28/22 09/28/22 09:59 09:59 10:49 WBC RBC Hgb Hct MCV MCH MCHC RDW Std Deviation RDW Coeff of Benigno Plt Count MPV Immature Gran % (Auto) Neut % (Auto) Lymph % (Auto) George % (Auto) Eos % (Auto) Baso % (Auto) Neut # (Auto) Lymph # (Auto) George # (Auto) Eos # (Auto) Baso # (Auto) Immature Gran # (Auto) PT 11.4 INR 1.1 APTT 27.3 PTT Ratio 1.0 Sodium Potassium Chloride Carbon Dioxide Anion Gap BUN Creatinine Est Cr Clr Drug Dosing Est GFR ( Amer) Est GFR (Non-Af Amer) BUN/Creatinine Ratio Glucose Osmolality 269 L Calcium Magnesium Total Bilirubin AST ALT Alkaline Phosphatase Total Creatine Kinase Troponin I High Sens Total Protein Albumin Globulin Albumin/Globulin Ratio TSH Urine Color Urine Appearance Urine pH Ur Specific [place] Urine Protein Urine Glucose (UA) Urine Ketones Urine Blood Urine Nitrite Urine Bilirubin Urine Urobilinogen Ur Leukocyte Esterase Urine WBC (Auto) Urine RBC (Auto) U Hyaline Cast (Auto) U Epithel Cells (Auto) Urine Bacteria (Auto) Ur Renal Epithelial Cell Urine Crystals Urine Osmolality Ur Random Sodium Valproic Acid Pending SARS-CoV-2, RNA, NAAT 09/28/22 09/28/22 09/28/22 10:56 10:56 10:56 WBC RBC Hgb Hct MCV MCH MCHC RDW Std Deviation RDW Coeff of Benigno Plt Count MPV Immature Gran % (Auto) Neut % (Auto) Lymph % (Auto) George % (Auto) Eos % (Auto) Baso % (Auto) Neut # (Auto) Lymph # (Auto) George # (Auto) Eos # (Auto) Baso # (Auto) Immature Gran # (Auto) PT INR APTT PTT Ratio Sodium Potassium Chloride Carbon Dioxide Anion Gap BUN Creatinine Est Cr Clr Drug Dosing Est GFR ( Amer) Est GFR (Non-Af Amer) BUN/Creatinine Ratio Glucose Osmolality Calcium Magnesium Total Bilirubin AST ALT Alkaline Phosphatase Total Creatine Kinase Troponin I High Sens Total Protein Albumin Globulin Albumin/Globulin Ratio TSH Urine Color Dark Yellow Urine Appearance Cloudy A Urine pH 6.0 Ur Specific [place] 1.037 H Urine Protein 2+ H Urine Glucose (UA) Negative Urine Ketones 2+ H Urine Blood Negative Urine Nitrite Positive A Urine Bilirubin Negative Urine Urobilinogen Negative Ur Leukocyte Esterase Trace H Urine WBC (Auto) 5-10 H Urine RBC (Auto) 0-4 U Hyaline Cast (Auto) 1-5 U Epithel Cells (Auto) >30 H Urine Bacteria (Auto) 2+ H Ur Renal Epithelial Cell 0-5 Urine Crystals Pending Urine Osmolality Pending Ur Random Sodium 11 Valproic Acid SARS-CoV-2, RNA, NAAT 09/28/22 11:39 WBC RBC Hgb Hct MCV MCH MCHC RDW Std Deviation RDW Coeff of Benigno Plt Count MPV Immature Gran % (Auto) Neut % (Auto) Lymph % (Auto) George % (Auto) Eos % (Auto) Baso % (Auto) Neut # (Auto) Lymph # (Auto) George # (Auto) Eos # (Auto) Baso # (Auto) Immature Gran # (Auto) PT INR APTT PTT Ratio Sodium Potassium Chloride Carbon Dioxide Anion Gap BUN Creatinine Est Cr Clr Drug Dosing Est GFR ( Amer) Est GFR (Non-Af Amer) BUN/Creatinine Ratio Glucose Osmolality Calcium Magnesium Total Bilirubin AST ALT Alkaline Phosphatase Total Creatine Kinase Troponin I High Sens Total Protein Albumin Globulin Albumin/Globulin Ratio TSH Urine Color Urine Appearance Urine pH Ur Specific [place] Urine Protein Urine Glucose (UA) Urine Ketones Urine Blood Urine Nitrite Urine Bilirubin Urine Urobilinogen Ur Leukocyte Esterase Urine WBC (Auto) Urine RBC (Auto) U Hyaline Cast (Auto) U Epithel Cells (Auto) Urine Bacteria (Auto) Ur Renal Epithelial Cell Urine Crystals Urine Osmolality Ur Random Sodium Valproic Acid SARS-CoV-2, RNA, NAAT NEGATIVE Diagnostic Findings CT Cervical Spine 09/28/22 - IMPRESSION: No acute cervical spine fracture or subluxation. Chest X-ray 09/28/22 - IMPRESSION: No acute process. Right Foot X-ray 09/28/22 - IMPRESSION: Acute fifth proximal phalangeal fracture. CT Head 09/28/22 - IMPRESSION: No acute intracranial abnormality or calvarial fracture. Bilateral Knee X-rays 09/28/22 - IMPRESSION: 1. No acute fracture or dislocation. 2. Osteoarthritis of the knees. Pelvis X-ray 09/28/22 - IMPRESSION: No acute fracture or dislocation identified. Medications Administered Discontinued Medications Magnesium Sulfate/Dextrose (Magnesium Sulfate / D5w) 1 gm in 100 mls @ 100 mls/hr IV NOW STA Stop: 09/28/22 11:12 Last Infusion: 09/28/22 12:00 Dose: 0 mls/hr Documented By: Admin: 09/28/22 11:03 Dose: 100 mls/hr Documented By: ASHLEIGH Ceftriaxone Sodium (Rocephin) 2,000 mg in 70 mls @ 140 mls/hr IV NOW STA Stop: 09/28/22 12:26 Last Admin: 09/28/22 12:09 Dose: 140 mls/hr Documented By: IAIN Supervising Physician Co-Signing Physician Notes Pt is a 71 y/o F with hx of Epilepsy, hypothyroidism, FORREST on CPAP, DDD, hx of frequent fall, hx of hypoNa+ admitted after a recent fall and found to be hypoNa+, elevated trop and fracture of the R 5th proximal phalangeal fracture. PE: Obese pt, NAD Lungs: CTA, no wheezing or crackles Cardiac: normal S1/S2, no murmur Abd: Obese abd, NT, soft MSK: b/l trace LE pitting edema and mild swelling of the R foot Psych: AAOx3, normal affect A/P: Fall with 5th proximal phalangeal fracture: -will get ortho consult - other images showed no acute fracture - PT/OT Elevated Trop with possible EKG change: -EKG: possible new TW flattening on V5-V6 -Trop was 1000 but pt was not complaining of CP -- will trend: repeat Trop was 925 - cardiology consult and admit to tele HypoNa+: -does have chronic hypona+ ---- likely due to Epilepsy meds -started the pt on fluids ---- BMP in 6 hrs UTI: -continue pt on ceftriaxone Other chronic conditions: plan as above Agree with A/P by Letha Rock PA-C
[2022-09-28] MEDS ORDERED: SODIUM CHLORIDE 0.9% 1000ML 1,000 ML IV SCH (12:30)
[2022-09-28 13:14] LABS: Amorphous Sediment Urine Present (None Prsent)
[2022-09-28] MEDS ORDERED: NITROGLYCERIN SL 0.4 MG/TAB TAB SL PRN (13:22)
[2022-09-28 18:52] LABS: BUN Creatinine Ratio 14.3 (10-20); Calcium 9.3 mg/dl (8.5-10.1); Creatinine Clr Calc Pharmacy 127.4 ml/min; Est GFR (African American) 114.4 ml/min; Est GFR (Non-African American) 98.7 ml/min; Potassium 3.7 mmol/L (3.5-5.1)
[2022-09-28] MEDS: GABAPENTIN 300 MG CAP PO SCH (21:11)
[2022-09-28] MEDS: DIVALPROEX EXTENDED RELEASE 500 MG TAB PO SCH (21:11)
[2022-09-28] MEDS: OXcarbazepine 150 MG TABLET PO SCH (21:11)
[2022-09-28] MEDS: levETIRAcetam 500 MG TAB PO SCH (21:12)
--- NOTE | 2022-09-29 06:34 | Orthopedic Consultation ---
Date of Consultation September 29, 2022 Assessment & Plan (1) Toe fracture, right: X-rays of the right foot show an acute mildly impacted and slightly angulated fracture of the base of the fifth proximal phalanx. On examination the toe appears straight with no significant deformity noted. At this point would recommend weight-bear as tolerated on the right foot using a postop shoe/fracture shoe, she could also ranjan tape the fourth and fifth digit for added support. Continue ice elevate for swelling. She should follow-up in the office in 2 weeks for repeat radiographs with Dr Coker, patient understands and agrees with above treatment plan. She can contact us with any questions or concerns or increased pain History of Present Illness Reason for Consultation: Right Toe Fracture Attending Physician: Janelle Gonzalez MD History of Present Illness Sintia is a pleasant 71-year-old female that we are consulted on regarding a right toe fracture. She presented to the emergency department by ambulance yesterday for evaluation after sustaining a fall. She states that she was trying to get out of her lift chair and she fell to the ground. She denies any previous injuries or trauma to this foot or toe, she was also having some knee pain upon arrival but states her knees are feeling better at this time Allergies Allergy/AdvReac Type Severity Reaction Status Date / Time amoxicillin Allergy Rash Verified 04/16/22 13:49 Home Medications Medication Instructions Recorded Confirmed Type acetaminophen 500 mg tablet 1,000 mg PO Q6H PRN Pain 10/31/21 09/28/22 History (Tylenol Extra Strength) divalproex 500 mg tablet,extended 1,000 mg PO HS 10/31/21 09/28/22 History release 24 hr levetiracetam 500 mg tablet 500 mg PO BID 10/31/21 09/28/22 History levothyroxine 75 mcg tablet 75 mcg PO DAILY 10/31/21 09/28/22 History (Euthyrox) oxcarbazepine 150 mg tablet 450 mg PO BID 10/31/21 09/28/22 History gabapentin 300 mg capsule 300 mg PO BID 09/28/22 09/28/22 History meloxicam 7.5 mg tablet 7.5 mg PO DAILY 09/28/22 09/28/22 History Patient History Medical History Cancer SKIN CANCER Compression fracture Deep vein thrombosis Hallucination Hallucinations (05/29/11) Hearing deficit Hypothyroidism Hypothyroidism On home oxygen therapy [place] OXYGEN AT NIGHT (UNSURE OF LITER) Peripheral neuropathy Psychosis Pulmonary embolism Seizure LAST EPISODE (THIS YEAR/UNSURE OF DATE) ? SEIZURE TYPE>FOLLOWS WITH DR. PHOENIX. OLD RECORDS NOTE EPILEPSY Seizure disorder Sleep apnea NO DEVICE USED NOW (CPAP USED IN PAST) Witnessed seizure-like activity Surgical History History of adenoidectomy History of bilateral tubal ligation History of colonoscopy History of kyphoplasty History of tonsillectomy History of tooth extraction Family History Mother Family hx of colon cancer Social History Smoking Status: Never smoker Second Hand Exposure: Yes (Family members smoked during childhood); Hx Alcohol Use: No Hx Substance Use: No Preferred Language: Turkish Communication Ability: Effective Document Imaging Manager Required: No Beliefs That Will Affect Care: None marital status: Current Living Situation: Spouse How many Children do You have: 5 Feels Safe at Home: Yes Safety Concerns: Feels Safe At This Time Assistive Devices: Denture - Upper, Denture - Lower, Glasses, Hearing Aid - Bilateral, Stair Lift and Walker Physical Exam Physical Exam: Vital Signs Temp 36.7 C 09/29/22 02:57 Pulse 98 H 09/29/22 02:57 Resp 20 09/29/22 02:57 BP 102/64 09/29/22 02:57 Pulse Ox 91 09/29/22 02:57 O2 Del Method Room Air 09/29/22 02:57 Intake & Output 09/28/22 09/28/22 09/29/22 06:59 18:59 06:59 Intake Total 270 / 1032 762 / 1032 Output Total 500 / 1400 900 / 1400 Balance -230 / -368 -138 / -368 Weight 106.8 kg 104.5 kg Intake: IV 170 / 932 762 / 932 Magnesium Sulf ate / D5w 1 gm In 100 / 100 100 ml @ 100 m ls/hr IV NOW STA Rx#:[id number] Sodium Chlorid e 0.9% 1000ML 1, 762 / 762 000 ml @ 150 m ls/hr IV .[id number] [facility] Rx#:[id number] cefTRIAXone SO DIUM 2,000 mg In 70 / 70 70 ml @ 140 ml s/hr IV NOW STA Rx#:[id number] Oral 100 / 100 Output: Urine 500 / 1000 500 / 1000 Urine Amount (Ca theter) 400 / 400 External 400 / 400 Other: Weight Measureme nt Method Built in [facility] Built in [facility] Musculoskeletal: Right Foot: Examination of her right foot shows swelling and ecchymosis noted to the fourth and fifth digits with tenderness along the right fifth toe. DP pulses palpable, she is able to wiggle her toes as well as perform ankle plantar dorsiflexion without difficulty. Calf is soft and nontender Results & Data ([facility]) Vital Signs (Past 12 Hours) Vital Signs Temp Pulse Pulse Resp BP Pulse Ox O2 Del Method 09/29/22 02:57 36.7 C 98 H 20 102/64 91 Room Air 09/28/22 22:12 101 H 09/28/22 23:00 36.7 C 90 18 93/61 L 95 Room Air 09/28/22 21:14 Room Air 09/28/22 19:30 37.7 C H 98 H 18 94/61 L 94 Room Air Diagnostic Findings XR foot RT 2V HISTORY: 71 years-old Female fall acute pain of the right foot status post fall COMPARISON: None TECHNIQUE: 2 views of the right foot FINDINGS: There is an acute mildly impacted and slightly angulated intra-articular fracture involving the base of the fifth proximal phalanx. Demineralized appearance of the bones with mild to moderate osteoarthritis. Spurring of the calcaneus. Mild to moderate soft tissue swelling of the forefoot. No additional acute fracture or dislocation identified. IMPRESSION: Acute fifth proximal phalangeal fracture. ACT 112: Negative or not required by law. The above report was generated using voice recognition software. It may contain grammatical, syntax or spelling errors. Electronically signed by: Dutch Pacheco M.D. 09/28/2022 10:14 AM Dictated:09/28/22 1012
[2022-09-29] MEDS: LEVOTHYROXINE SODIUM 75 MCG TABLET PO SCH (06:59)
[2022-09-29 07:36] LABS: Basophils # (auto) 0.05 K/uL (0-0.2); Basophils % (auto) 1.1 %; Eosinophils # (auto) 0.15 K/uL (0-0.50); Eosinophils % (auto) 3.2 %; Hematocrit (blood only) 37.4 % (37.0-47.0); Hemoglobin 13.2 g/dl (12.0-16.0); Immature Granulocytes # (auto) 0.02 K/uL (0.01-0.20); Immature Granulocytes % (auto) 0.4 %; Lymphocytes # (auto) 0.94 K/uL (1.2-3.4); Lymphocytes % (auto) 19.9 %; Mean Corpuscular Hemoglobin 32.7 pg (25.0-34.0); Mean Corpuscular Hgb Conc 35.3 g/dL (32.0-36.0); Mean Corpuscular Volume 92.6 fL (80.0-100.0); Mean Platelet Volume 10.1 fL (9.4-12.4); Monocytes # (auto) 0.72 K/uL (0.11-0.59); Monocytes % (auto) 15.2 %; Neutrophils # (auto) 2.85 K/uL (1.40-6.50); Neutrophils % (auto) 60.2 %; Platelet Count 171 K/uL (130-400); RDW Coefficient of Variation 12.8 % (11.5-14.5); RDW Standard Deviation 43.7 fL (36.4-46.3); Red Blood Count 4.04 M/uL (4.20-5.40); White Blood Count 4.73 K/ul (4.8-10.8)
[2022-09-29 07:47] LABS: BUN Creatinine Ratio 11.8 (10-20); Calcium 8.7 mg/dl (8.5-10.1); Creatinine Clr Calc Pharmacy 120.9 ml/min; Est GFR (African American) 112.9 ml/min; Est GFR (Non-African American) 97.4 ml/min; Magnesium 1.7 mg/dl (1.7-2.4); Potassium 3.9 mmol/L (3.5-5.1)
[2022-09-29] MEDS: GABAPENTIN 300 MG CAP PO SCH ×2 (08:14→20:00)
[2022-09-29] MEDS: levETIRAcetam 500 MG TAB PO SCH ×2 (08:14→20:00)
[2022-09-29] MEDS: OXcarbazepine 150 MG TABLET PO SCH ×2 (08:14→19:59)
[2022-09-29] MEDS: cefTRIAXone SODIUM 2,000 MG in DEXTROSE 5% 50 ML IV SCH (08:14)
--- NOTE | 2022-09-29 11:09 | Electrocardiogram Report ---
Test Reason : Blood Pressure : / mmHG Vent. Rate : 081 BPM Atrial Rate : 081 BPM P-R Int : 188 ms QRS Dur : 072 ms QT Int : 314 ms P-R-T Axes : 028 022 -58 degrees QTc Int : 364 ms Normal sinus rhythm Septal infarct , age undetermined Nonspecific ST and T wave abnormality Abnormal ECG When compared with ECG of 28-SEP-2022 09:11, Septal infarct is now Present Confirmed by Braeden Jameson ([id number]) on 09/29/2022 11:09:24 AM Referred By: REFERRED SELF Confirmed By:Braeden Jameson
--- NOTE | 2022-09-29 11:53 | Cardiology Consultation ---
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 We will consider ischemic work-up with Lexiscan nuclear stress test at some point Treatment for catecholamine use cardiopathy is obviously reversal of the pain along with beta-blockade and SSRI Her blood pressures have been running on the low side so we will hold off on the addition of beta-jenniffer at this time and will defer choice of SSRI to the primary team History of Present Illness Attending Physician: Gabino Wiley MD History of Present Illness It was my pleasure to see Mrs. Shah in cardiac consultation today September 29, 2022. She is a very pleasant 71-year-old woman who presented to the emergency department on 09/28/2022 with reports of multiple mechanical falls at home and o ngoing foot and back pain. In the emergency department, her high-sensitivity troponin level was mildly elevated. She was admitted to telemetry. Currently she states that she feels well except for back and toe pain. She states that she has been in a great deal of pain for several days to weeks now given her multiple fractures. She denies experiencing any cardiac complaints of chest pain, shortness of breath, palpitations, lightheadedness or dizziness. PMHX per most recent outpatient cardiac visit: Recurrent syncope s/p LINQ II insertion 10/2021 CAD minimal non-obstructive disease by cath 11/2020 Epilepsy FORREST on CPAP Hypothyroidism H.o DVT on eliquis Allergies Allergy/AdvReac Type Severity Reaction Status Date / Time amoxicillin Allergy Rash Verified 04/16/22 13:49 Home Medications Medication Instructions Recorded Confirmed Type acetaminophen 500 mg tablet 1,000 mg PO Q6H PRN Pain 10/31/21 09/28/22 History (Tylenol Extra Strength) divalproex 500 mg tablet,extended 1,000 mg PO HS 10/31/21 09/28/22 History release 24 hr levetiracetam 500 mg tablet 500 mg PO BID 10/31/21 09/28/22 History levothyroxine 75 mcg tablet 75 mcg PO DAILY 10/31/21 09/28/22 History (Euthyrox) oxcarbazepine 150 mg tablet 450 mg PO BID 10/31/21 09/28/22 History gabapentin 300 mg capsule 300 mg PO BID 09/28/22 09/28/22 History meloxicam 7.5 mg tablet 7.5 mg PO DAILY 09/28/22 09/28/22 History Patient History Medical History Cancer SKIN CANCER Compression fracture Deep vein thrombosis Hallucination Hallucinations (05/29/11) Hearing deficit Hypothyroidism Hypothyroidism On home oxygen therapy [place] OXYGEN AT NIGHT (UNSURE OF LITER) Peripheral neuropathy Psychosis Pulmonary embolism Seizure LAST EPISODE (THIS YEAR/UNSURE OF DATE) ? SEIZURE TYPE>FOLLOWS WITH DR. PHOENIX. 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 No acute distress. HEENT: Normocephalic, atraumatic. Pupils equal, round and reactive to light and accommodation. Extraocular muscles are intact. Anicteric sclera. Moist mucous membranes. Neck: No JVD. No bruit. Cardiovascular: Regular. Positive S-4. Normal S-1 and S-2. No S-3. 3/6 holosystolic ejection murmur, left sternal border, mid-clavicular line with radiation to the axilla. No rubs. Pulmonary: Clear to auscultation bilaterally. No rales, rhonchi, or wheezing. Abdomen: Bowel sounds x 4, soft. No rebound, guarding or tenderness. No organomegaly. Extremities: No clubbing, cyanosis or edema. +2 pedal pulses bilaterally. Skin: Warm and dry. Results & Data ([facility]) Vital Signs (Past 12 Hours) Vital Signs Temp Pulse Pulse Resp BP Pulse Ox O2 Del Method 09/29/22 11:36 36.6 C 83 18 115/79 94 Room Air 09/29/22 08:00 92 H 09/29/22 08:00 Room Air 09/29/22 07:26 36.3 C L 88 18 102/70 94 Room Air 09/29/22 02:57 36.7 C 98 H 20 102/64 91 Room Air Diagnostic Findings 2D echocardiogram report 09/28/22: Normal LV chamber size and wall motion at the basal levels with progressive chamber dilatation and hypokinesis. Apical ballooning pattern with Severe hypokinesis to akinesis of the mid and apical lemos. EF 25-30%. Grade I diastolic dysfunction. No significant valvular pathology. Pulmonary hypertension is present with a PASP of 48 mmHg assuming a RA pressure of 15 mmHg. (8) Fall Encounter type: initial encounter Qualified Code(s): W19.XXXA - Unspecified fall, initial encounter
--- NOTE | 2022-09-29 14:14 | Hospitalist Progress Note ---
Date of Service September 29, 2022 Assessment & Plan (1) Falls frequently: Plan: 71 y/o female with a PMH of ambulatory dysfunction, multiple previous falls, prior compression fracture s/p kyphoplasty, seizure disorder, peripheral neuropathy, and hypothyroidism who presents to the ED with three falls in the last two days. Work-up in the ED for fractures was negative except for right toe fracture. However, noted to have a markedly elevated troponin >1000 but a question of EKG changes. Will need further cardiac work-up as well as therapy evaluations due to worsening ambulatory dysfunction - may need to consider additional rehab again. Has been falling frequently and she feels a due to her knees specially the left knee gives way frequently No significant injury from the fall except fracture of the terminal phalanx of right ring toe Will get PT and OT evaluation Fall precaution (2) Acute non-ST elevation myocardial infarction (NSTEMI): Plan: - Trend troponin, repeat EKG - since no active chest pain, if troponin stable or decreasing and no EKG changes on repeat, will hold heparin until seen by cardiology -Initial troponin was 1050 and subsequent troponins came down to 925 and then 652 without any EKG changes -The patient remains asymptomatic -Appreciate cardiology input and recommendation (3) Toe fracture, right: Plan: Consult ortho to determine if pt needs any additional stabilization or intervention for fracture Fracture of the terminal phalanx of right ring toe Appreciate Ortho input and recommendation for conservative management and follow-up' (4) Hypomagnesemia: Plan: Repleted in the ED - recheck tomorrow (5) Acute hyponatremia: Plan: Sodium was 126 on admission Received small amounts of normal saline in the ER Sodium is 131 as of 09/29/2022 (6) Acute UTI (urinary tract infection): Plan: Ceftriaxone started in the ED - will continue while culture pending Urine culture is growing gram-negative bacilli and await further identification (7) Seizure disorder: Plan: Continue outpatient medication regimen (8) Hypothyroidism: Plan: Pt recently started levothyroxine - will continue (9) Peripheral neuropathy: Plan: Continue gabapentin Plan Code Status: Full Code DVT Prophylaxis: Lovenox Admission and Anticipated Discharge Date Admission Date: September 28, 2022 Subjective 09/29/2022 The patient was seen and examined in telemetry unit She is admitted with frequent falls and she feels it is due to her right knee which gives way frequently. Denies any cardiac symptoms and or dizziness prior to the fall She has been lying flat without any apparent distress Complains right toe pain but does not have any chest pain and/or palpitation Review of Systems Review of Systems: All systems reviewed and are unremarkable except as noted below Musculoskeletal: Pain in the right sided toes Physical Exam Physical Exam: Lying in bed comfortably Constitutional: well developed, well nourished, + ill appearing and + obese Eyes: PERRL, conjunctivae normal, anicteric sclerae ENMT: external ear and nose normal, oropharynx normal Neck: trachea midline, no thyromegaly Respiratory: no respiratory distress Auscultation: + diminished lung sounds and + crackles (Minimal crackles at the bases and dependent parts) Cardiovascular: Rate/Rhythm: regular rate and regular rhythm; not tachycardic Heart Sounds: normal S1 and normal S2; no murmur Extremities: + edema (1+ edema bilaterally) Gastrointestinal (Abdomen): Inspection/Auscultation: normal bowel sounds; abdomen not distended Percussion/Palpation: abdomen soft; abdomen nontender Musculoskeletal: Right sided toe pain Neurologic: Alert, awake and oriented x3. No focal sensory or motor deficit appreciated Psychiatric: A+Ox3, euthymic affect Lymphatic: no cervical or axillary lymphadenopathy Results & Data Results & Data ([facility]) Vital Signs (Past 12 Hours) Vital Signs Temp Pulse Pulse Resp BP Pulse Ox O2 Del Method 09/29/22 11:36 36.6 C 83 18 115/79 94 Room Air 09/29/22 08:00 92 H 09/29/22 08:00 Room Air 09/29/22 07:26 36.3 C L 88 18 102/70 94 Room Air 09/29/22 02:57 36.7 C 98 H 20 102/64 91 Room Air Laboratory Results Short CBC 09/29/22 Range/Units 07:04 WBC 4.73 L (4.8-10.8) K/ul Hgb 13.2 (12.0-16.0) g/dl Hct 37.4 (37.0-47.0) % Plt Count 171 (130-400) K/uL BMP 09/28/22 09/29/22 18:00 07:04 Sodium 130 L 131 L Potassium 3.7 3.9 Chloride 97 L 98 Carbon Dioxide 25 27 BUN 7 6 Creatinine 0.49 L 0.51 L Glucose 102 H 91 Calcium 9.3 8.7 Medications Administered Current Inpatient Medications Acetaminophen (Acetaminophen 325 Mg Tab) 650 mg PO Q4H PRN PRN Reason: Pain or Fever Stop: 10/28/22 23:28 Divalproex Sodium (Divalproex Extended Release 500 Mg Tab) 1,000 mg PO HS [facility] Stop: 10/28/22 20:59 Last Admin: 09/28/22 21:11 Dose: 1,000 mg Gabapentin (Gabapentin 300 Mg Cap) 300 mg PO BID [facility] Stop: 10/28/22 20:59 Last Admin: 09/29/22 08:14 Dose: 300 mg Ceftriaxone Sodium 2,000 mg/ (Dextrose) 70 mls @ 100 mls/hr IV Q24H [facility]; Protocol Stop: 10/04/22 08:59 Last Infusion: 09/29/22 09:07 Dose: Infused Levetiracetam (Levetiracetam 500 Mg Tab) 500 mg PO BID [facility] Stop: 10/28/22 20:59 Last Admin: 09/29/22 08:14 Dose: 500 mg Levothyroxine Sodium (Levothyroxine Sodium 75 Mcg Tablet) 75 mcg PO DAILYBB [facility] Stop: 10/29/22 06:29 Last Admin: 09/29/22 06:59 Dose: 75 mcg Nitroglycerin (Nitroglycerin Sl 0.4 Mg/Tab Tab) 0.4 mg SL UD PRN PRN Reason: Chest Pain Stop: 10/28/22 13:21 Oxcarbazepine (Oxcarbazepine 150 Mg Tablet) 450 mg PO BID [facility] Stop: 10/28/22 20:59 Last Admin: 09/29/22 08:14 Dose: 450 mg
[2022-09-29] MEDS: ACETAMINOPHEN 325 MG TAB PO PRN ×2 (14:23→22:06)
[2022-09-29] MEDS: DIVALPROEX EXTENDED RELEASE 500 MG TAB PO SCH (20:00)
[2022-09-30] MEDS: LEVOTHYROXINE SODIUM 75 MCG TABLET PO SCH (05:06)
[2022-09-30 08:19] LABS: BUN Creatinine Ratio 18.9 (10-20); Calcium 8.8 mg/dl (8.5-10.1); Creatinine Clr Calc Pharmacy 166.8 ml/min; Est GFR (African American) 125.5 ml/min; Est GFR (Non-African American) 108.3 ml/min; Magnesium 1.8 mg/dl (1.7-2.4); Potassium 3.9 mmol/L (3.5-5.1)
[2022-09-30] MEDS: levETIRAcetam 500 MG TAB PO SCH ×2 (08:19→20:11)
[2022-09-30] MEDS: OXcarbazepine 150 MG TABLET PO SCH ×2 (08:19→20:11)
[2022-09-30] MEDS: cefTRIAXone SODIUM 2,000 MG in DEXTROSE 5% 50 ML IV SCH (08:19)
[2022-09-30] MEDS: GABAPENTIN 300 MG CAP PO SCH ×2 (08:19→20:11)
[2022-09-30] MEDS: ACETAMINOPHEN 325 MG TAB PO PRN ×3 (09:15→23:06)
[2022-09-30] MEDS: DOCUSATE SODIUM 100 MG CAP PO SCH ×2 (11:04→20:11)
[2022-09-30] MEDS ORDERED: ONDANSETRON INJ 2 MG/ML 2 ML VIAL ONE (17:30)
[2022-09-30] MEDS ORDERED: ONDANSETRON INJ 2 MG/ML 2 ML VIAL IV SCH (17:30)
--- NOTE | 2022-09-30 17:39 | Hospitalist Progress Note ---
Date of Service September 30, 2022 Assessment & Plan (1) Falls frequently: Plan: 71 y/o female with a PMH of ambulatory dysfunction, multiple previous falls, prior compression fracture s/p kyphoplasty, seizure disorder, peripheral neuropathy, and hypothyroidism who presents to the ED with three falls in the last two days. Work-up in the ED for fractures was negative except for right toe fracture. However, noted to have a markedly elevated troponin >1000 but a question of EKG changes. Will need further cardiac work-up as well as therapy evaluations due to worsening ambulatory dysfunction - may need to consider additional rehab again. Has been falling frequently and she feels a due to her knees specially the left knee gives way frequently No significant injury from the fall except fracture of the terminal phalanx of right ring toe Will get PT and OT evaluation Fall precaution Will have orthopedic boot today and get PT and OT evaluation Likely discharge tomorrow after the PT and OT evaluation and recommendation (2) Acute non-ST elevation myocardial infarction (NSTEMI): Plan: - Trend troponin, repeat EKG - since no active chest pain, if troponin stable or decreasing and no EKG changes on repeat, will hold heparin until seen by cardiology -Initial troponin was 1050 and subsequent troponins came down to 925 and then 652 without any EKG changes -The patient remains asymptomatic -Appreciate cardiology input and recommendation (3) Toe fracture, right: Plan: Consult ortho to determine if pt needs any additional stabilization or intervention for fracture Fracture of the terminal phalanx of right ring toe Appreciate Ortho input and recommendation for conservative management and follow-up' As above (4) Hypomagnesemia: Plan: Repleted in the ED - recheck tomorrow (5) Acute hyponatremia: Plan: Sodium was 126 on admission Received small amounts of normal saline in the ER Sodium is 131 as of 09/29/2022 (6) Acute UTI (urinary tract infection): Plan: Ceftriaxone started in the ED - will continue while culture pending Urine culture is growing gram-negative bacilli and await further identification (7) Seizure disorder: Plan: Continue outpatient medication regimen (8) Hypothyroidism: Plan: Pt recently started levothyroxine - will continue (9) Peripheral neuropathy: Plan: Continue gabapentin Plan Code Status: Full Code DVT Prophylaxis: Lovenox Admission and Anticipated Discharge Date Admission Date: September 28, 2022 Subjective 09/29/2022 The patient was seen and examined in telemetry unit She is admitted with frequent falls and she feels it is due to her right knee which gives way frequently. Denies any cardiac symptoms and or dizziness prior to the fall She has been lying flat without any apparent distress Complains right toe pain but does not have any chest pain and/or palpitation 09/30/2022 The patient was seen and examined in telemetry unit She has been feeling much better and waiting for the boot for the right foot She will get physical therapy and likely discharge tomorrow Review of Systems Review of Systems: All systems reviewed and are unremarkable except as noted below Constitutional: + fatigue and + anorexia; no fever and no chills Eyes: no diplopia and no worsening vision Ear, Nose, Mouth, Throat: no nasal congestion and no sore throat Respiratory: no cough and no dyspnea Cardiovascular: no chest pain, no palpitations, no syncope and no edema Gastrointestinal: + nausea (last night but improved this AM); no vomiting, no diarrhea/loose stools and no blood in stools Genitourinary: no dysuria, no urinary frequency, no decreased urination and no hematuria Musculoskeletal: Pain in the right sided toes Integumentary: no yellowing of the skin Neurologic: + unsteadiness, + falls and + generalized weakness; no dizziness and no headache(s) Physical Exam Physical Exam: Lying in bed comfortably Constitutional: well developed, well nourished, + ill appearing and + obese Eyes: PERRL, conjunctivae normal, anicteric sclerae ENMT: external ear and nose normal, oropharynx normal Neck: trachea midline, no thyromegaly Respiratory: no respiratory distress Auscultation: + diminished lung sounds and + crackles (Minimal crackles at the bases and dependent parts) Cardiovascular: Rate/Rhythm: regular rate and regular rhythm; not tachycardic Heart Sounds: normal S1 and normal S2; no murmur Extremities: + edema (1+ edema bilaterally) Gastrointestinal (Abdomen): Inspection/Auscultation: normal bowel sounds; abdomen not distended Percussion/Palpation: abdomen soft; abdomen nontender Musculoskeletal: No arthritis involving any of the joint Psychiatric: A+Ox3, euthymic affect Lymphatic: no cervical or axillary lymphadenopathy Results & Data Results & Data ([facility]) Vital Signs (Past 12 Hours) Vital Signs Temp Pulse Pulse Resp BP Pulse Ox O2 Del Method 09/30/22 15:52 36.5 C 73 18 103/69 96 Room Air 09/30/22 11:42 36.7 C 76 14 106/69 94 Room Air 09/30/22 08:00 72 09/30/22 08:00 Room Air 09/30/22 07:42 36.4 C L 77 18 109/73 95 Room Air Laboratory Results BMP 09/30/22 07:22 Sodium 130 L Potassium 3.9 Chloride 97 L Carbon Dioxide 28 BUN 7 Creatinine 0.37 L Glucose 96 Calcium 8.8 Medications Administered Current Inpatient Medications Acetaminophen (Acetaminophen 325 Mg Tab) 650 mg PO Q4H PRN PRN Reason: Pain or Fever Stop: 10/28/22 23:28 Last Admin: 09/30/22 09:15 Dose: 650 mg Divalproex Sodium (Divalproex Extended Release 500 Mg Tab) 1,000 mg PO HS [facility] Stop: 10/28/22 20:59 Last Admin: 09/29/22 20:00 Dose: 1,000 mg Docusate Sodium (Docusate Sodium 100 Mg Cap) 100 mg PO BID [facility] Stop: 10/30/22 09:29 Last Admin: 09/30/22 11:04 Dose: 100 mg Gabapentin (Gabapentin 300 Mg Cap) 300 mg PO BID [facility] Stop: 10/28/22 20:59 Last Admin: 09/30/22 08:19 Dose: 300 mg Ceftriaxone Sodium 2,000 mg/ (Dextrose) 70 mls @ 100 mls/hr IV Q24H [facility]; Protocol Stop: 10/04/22 08:59 Last Infusion: 09/30/22 11:04 Dose: Infused Levetiracetam (Levetiracetam 500 Mg Tab) 500 mg PO BID [facility] Stop: 10/28/22 20:59 Last Admin: 09/30/22 08:19 Dose: 500 mg Levothyroxine Sodium (Levothyroxine Sodium 75 Mcg Tablet) 75 mcg PO DAILYBB [facility] Stop: 10/29/22 06:29 Last Admin: 09/30/22 05:06 Dose: 75 mcg Nitroglycerin (Nitroglycerin Sl 0.4 Mg/Tab Tab) 0.4 mg SL UD PRN PRN Reason: Chest Pain Stop: 10/28/22 13:21 Ondansetron HCl (Ondansetron Inj 2 Mg/Ml 2 Ml Vial) 4 mg IV Q6H [facility] Stop: 10/30/22 17:29 Last Admin: 09/30/22 17:34 Dose: Not Given Oxcarbazepine (Oxcarbazepine 150 Mg Tablet) 450 mg PO BID [facility] Stop: 10/28/22 20:59 Last Admin: 09/30/22 08:19 Dose: 450 mg
[2022-09-30] MEDS ORDERED: ONDANSETRON INJ 2 MG/ML 2 ML VIAL IV PRN (18:52)
[2022-09-30] MEDS ORDERED: Nursing to Pharmacy Communication SCH (19:00)
[2022-09-30] MEDS: DIVALPROEX EXTENDED RELEASE 500 MG TAB PO SCH (20:11)
[2022-10-01] MEDS: ACETAMINOPHEN 325 MG TAB PO PRN ×2 (06:42→20:02)
[2022-10-01] MEDS: LEVOTHYROXINE SODIUM 75 MCG TABLET PO SCH (06:43)
[2022-10-01 07:41] LABS: BUN Creatinine Ratio 17.6 (10-20); Calcium 9.1 mg/dl (8.5-10.1); Creatinine Clr Calc Pharmacy 120.9 ml/min; Est GFR (African American) 112.9 ml/min; Est GFR (Non-African American) 97.4 ml/min; Magnesium 1.7 mg/dl (1.7-2.4)
[2022-10-01] MEDS: cefTRIAXone SODIUM 2,000 MG in DEXTROSE 5% 50 ML IV SCH (09:49)
[2022-10-01] MEDS: levETIRAcetam 500 MG TAB PO SCH ×2 (09:50→20:03)
[2022-10-01] MEDS: GABAPENTIN 300 MG CAP PO SCH ×2 (09:50→20:03)
[2022-10-01] MEDS: DOCUSATE SODIUM 100 MG CAP PO SCH ×2 (09:50→20:03)
[2022-10-01] MEDS: OXcarbazepine 150 MG TABLET PO SCH ×2 (09:50→20:02)
[2022-10-01] MEDS: SODIUM CHLORIDE 1 GM TABLET PO SCH ×2 (09:51→20:03)
--- NOTE | 2022-10-01 11:32 | Cardiology Progress Note ---
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 We will consider ischemic work-up with Lexiscan nuclear stress test at some point Treatment for catecholamine use cardiopathy is obviously reversal of the pain along with beta-blockade and SSRI Her blood pressures have been running on the low side so we will hold off on the addition of beta-jenniffer at this time and will defer choice of SSRI to the primary team 10/01/2022 Doing well from a cardiac standpoint and asymptomatic Unable to initiate beta-blockers given relative hypotension No further cardiac intervention or testing necessary at this time Okay to discharge to rehab We will need repeat echocardiogram in 1 month and follow-up with cardiology shortly there afterwards. Admission and Anticipated Discharge Date Admission Date: September 28, 2022 Subjective Patient seen and examined. Chart reviewed. Telemetry reviewed. States that she is feeling much better today and is anxious for discharge. Review of Systems Review of Systems: All systems reviewed & are unremarkable except as noted in HPI & below Physical Exam Physical Exam: General: Awake, alert and oriented x 3. No acute distress. HEENT: Normocephalic, atraumatic. Pupils equal, round and reactive to light and accommodation. Extraocular muscles are intact. Anicteric sclera. Moist mucous membranes. Neck: No JVD. No bruit. Cardiovascular: Regular. Positive S-4. Normal S-1 and S-2. No S-3. 3/6 holosystolic ejection murmur, left sternal border, mid-clavicular line with radiation to the axilla. No rubs. Pulmonary: Clear to auscultation bilaterally. No rales, rhonchi, or wheezing. Abdomen: Bowel sounds x 4, soft. No rebound, guarding or tenderness. No organomegaly. Extremities: No clubbing, cyanosis or edema. +2 pedal pulses bilaterally. Skin: Warm and dry. Results & Data ([facility]) Vital Signs (Past 12 Hours) Vital Signs Temp Pulse Resp BP Pulse Ox O2 Del Method 10/01/22 07:35 36.8 C 71 19 92/65 L 93 Room Air 10/01/22 04:19 36.8 C 69 19 107/74 90 Room Air (8) Fall Encounter type: initial encounter Qualified Code(s): W19.XXXA - Unspecified fall, initial encounter
--- NOTE | 2022-10-01 17:02 | Hospitalist Progress Note ---
Date of Service October 01, 2022 Assessment & Plan (1) Falls frequently: Plan: 71 y/o female with a PMH of ambulatory dysfunction, multiple previous falls, prior compression fracture s/p kyphoplasty, seizure disorder, peripheral neuropathy, and hypothyroidism who presents to the ED with three falls in the last two days. Work-up in the ED for fractures was negative except for right toe fracture. However, noted to have a markedly elevated troponin >1000 but a question of EKG changes. Will need further cardiac work-up as well as therapy evaluations due to worsening ambulatory dysfunction - may need to consider additional rehab again. Has been falling frequently and she feels a due to her knees specially the left knee gives way frequently No significant injury from the fall except fracture of the terminal phalanx of right ring toe Will get PT and OT evaluation Fall precaution Will have orthopedic boot today and get PT and OT evaluation Awaiting transfer to a facility to continue rehab (2) Acute hyponatremia: Plan: Sodium was 126 on admission Received small amounts of normal saline in the ER Sodium is 131 as of 09/29/2022 Sodium level has been low at 129 Will monitor PRP (3) Acute non-ST elevation myocardial infarction (NSTEMI): Plan: - Trend troponin, repeat EKG - since no active chest pain, if troponin stable or decreasing and no EKG changes on repeat, will hold heparin until seen by cardiology -Initial troponin was 1050 and subsequent troponins came down to 925 and then 652 without any EKG changes -The patient remains asymptomatic -Appreciate cardiology input and recommendation -No beta-jenniffer administered due to low blood pressure (4) Toe fracture, right: Plan: Consult ortho to determine if pt needs any additional stabilization or intervention for fracture Fracture of the terminal phalanx of right ring toe Appreciate Ortho input and recommendation for conservative management and follow-up' As above-Will need orthopedic boot to continue physical therapy (5) Hypomagnesemia: Plan: Repleted in the ED - recheck tomorrow (6) Acute UTI (urinary tract infection): Plan: Ceftriaxone started in the ED - will continue while culture pending Urine culture is growing gram-negative bacilli and await further identification Developing E. coli which is pansensitive We will continue current antibiotic (7) Seizure disorder: Plan: Continue outpatient medication regimen (8) Hypothyroidism: Plan: Pt recently started levothyroxine - will continue (9) Peripheral neuropathy: Plan: Continue gabapentin Plan Code Status: Full Code DVT Prophylaxis: Lovenox Admission and Anticipated Discharge Date Admission Date: September 28, 2022 Subjective 09/29/2022 The patient was seen and examined in telemetry unit She is admitted with frequent falls and she feels it is due to her right knee which gives way frequently. Denies any cardiac symptoms and or dizziness prior to the fall She has been lying flat without any apparent distress Complains right toe pain but does not have any chest pain and/or palpitation 09/30/2022 The patient was seen and examined in telemetry unit She has been feeling much better and waiting for the boot for the right foot She will get physical therapy and likely discharge tomorrow 10/01/2022 The patient was seen and examined in telemetry unit She has been feeling much better and awaiting to go to rehab She has had physical therapy and got the boot Denies any significant symptoms Review of Systems Review of Systems: All systems reviewed and are unremarkable except as noted below Constitutional: + fatigue and + anorexia; no fever and no chills Eyes: no diplopia and no worsening vision Ear, Nose, Mouth, Throat: no nasal congestion and no sore throat Respiratory: no cough and no dyspnea Cardiovascular: no chest pain, no palpitations, no syncope and no edema Gastrointestinal: + nausea (last night but improved this AM); no vomiting, no diarrhea/loose stools and no blood in stools Genitourinary: no dysuria, no urinary frequency, no decreased urination and no hematuria Musculoskeletal: Pain in the right sided toes Integumentary: no yellowing of the skin Neurologic: + unsteadiness, + falls and + generalized weakness; no dizziness and no headache(s) Physical Exam Physical Exam: Lying in bed comfortably Constitutional: well developed, well nourished, + ill appearing and + obese Eyes: PERRL, conjunctivae normal, anicteric sclerae ENMT: external ear and nose normal, oropharynx normal Neck: trachea midline, no thyromegaly Respiratory: no respiratory distress Auscultation: + diminished lung sounds and + crackles (Minimal crackles at the bases and dependent parts) Cardiovascular: Rate/Rhythm: regular rate and regular rhythm; not tachycardic Heart Sounds: normal S1 and normal S2; no murmur Extremities: + edema (1+ edema bilaterally) Gastrointestinal (Abdomen): Inspection/Auscultation: normal bowel sounds; abdomen not distended Percussion/Palpation: abdomen soft; abdomen nontender Musculoskeletal: No acute arthritis involving any joint Neurologic: normal touch/pain/proprioception and moves all extremities; no focal motor deficits Psychiatric: A+Ox3, euthymic affect Lymphatic: no cervical or axillary lymphadenopathy Results & Data Results & Data ([facility]) Vital Signs (Past 12 Hours) Vital Signs Temp Pulse Resp BP Pulse Ox O2 Del Method 10/01/22 16:04 36.9 C 71 18 107/72 97 Room Air 10/01/22 11:47 37.0 C 71 18 100/67 94 Room Air 10/01/22 07:35 36.8 C 71 19 92/65 L 93 Room Air Laboratory Results [facility] 10/01/22 06:16 Sodium 129 L Potassium 4.0 Chloride 95 L Carbon Dioxide 30 BUN 9 Creatinine 0.51 L Glucose 96 Calcium 9.1 Medications Administered Current Inpatient Medications Acetaminophen (Acetaminophen 325 Mg Tab) 650 mg PO Q4H PRN PRN Reason: Pain or Fever Stop: 10/28/22 23:28 Last Admin: 10/01/22 06:42 Dose: 650 mg Divalproex Sodium (Divalproex Extended Release 500 Mg Tab) 1,000 mg PO HS [facility] Stop: 10/28/22 20:59 Last Admin: 09/30/22 20:11 Dose: 1,000 mg Docusate Sodium (Docusate Sodium 100 Mg Cap) 100 mg PO BID [facility] Stop: 10/30/22 09:29 Last Admin: 10/01/22 09:50 Dose: 100 mg Gabapentin (Gabapentin 300 Mg Cap) 300 mg PO BID [facility] Stop: 10/28/22 20:59 Last Admin: 10/01/22 09:50 Dose: 300 mg Ceftriaxone Sodium 2,000 mg/ (Dextrose) 70 mls @ 100 mls/hr IV Q24H [facility]; Protocol Stop: 10/04/22 08:59 Last Infusion: 10/01/22 10:29 Dose: Infused Levetiracetam (Levetiracetam 500 Mg Tab) 500 mg PO BID [facility] Stop: 10/28/22 20:59 Last Admin: 10/01/22 09:50 Dose: 500 mg Levothyroxine Sodium (Levothyroxine Sodium 75 Mcg Tablet) 75 mcg PO DAILYBB [facility] Stop: 10/29/22 06:29 Last Admin: 10/01/22 06:43 Dose: 75 mcg Nitroglycerin (Nitroglycerin Sl 0.4 Mg/Tab Tab) 0.4 mg SL UD PRN PRN Reason: Chest Pain Stop: 10/28/22 13:21 Ondansetron HCl (Ondansetron Inj 2 Mg/Ml 2 Ml Vial) 4 mg IV Q6H PRN PRN Reason: Nausea And Vomiting Stop: 10/30/22 18:51 Oxcarbazepine (Oxcarbazepine 150 Mg Tablet) 450 mg PO BID [facility] Stop: 10/28/22 20:59 Last Admin: 10/01/22 09:50 Dose: 450 mg Sodium Chloride (Sodium Chloride 1 Gm Tablet) 1 gm PO BID [facility] Stop: 10/31/22 08:59 Last Admin: 10/01/22 09:51 Dose: 1 gm
[2022-10-01] MEDS: DIVALPROEX EXTENDED RELEASE 500 MG TAB PO SCH (20:03)
[2022-10-02] MEDS: LEVOTHYROXINE SODIUM 75 MCG TABLET PO SCH (06:06)
[2022-10-02 07:49] LABS: BUN Creatinine Ratio 16.3 (10-20); Calcium 8.8 mg/dl (8.5-10.1); Creatinine Clr Calc Pharmacy 123.9 ml/min; Est GFR (African American) 114.4 ml/min; Est GFR (Non-African American) 98.7 ml/min
[2022-10-02] MEDS: cefTRIAXone SODIUM 2,000 MG in DEXTROSE 5% 50 ML IV SCH (08:36)
[2022-10-02] MEDS: DOCUSATE SODIUM 100 MG CAP PO SCH (08:37)
[2022-10-02] MEDS: SODIUM CHLORIDE 1 GM TABLET PO SCH (08:38)
[2022-10-02] MEDS: OXcarbazepine 150 MG TABLET PO SCH (08:38)
[2022-10-02] MEDS: GABAPENTIN 300 MG CAP PO SCH (08:38)
[2022-10-02] MEDS: levETIRAcetam 500 MG TAB PO SCH (08:38)
--- NOTE | 2022-10-02 10:27 | Hospitalist Progress Note ---
Date of Service October 02, 2022 Assessment & Plan (1) Falls frequently: Plan: per Dr. Wiley's notes with addendum: 71 y/o female with a PMH of ambulatory dysfunction, multiple previous falls, prior compression fracture s/p kyphoplasty, seizure disorder, peripheral neuropathy, and hypothyroidism who presents to the ED with three falls in the last two days. Work-up in the ED for fractures was negative except for right toe fracture. However, noted to have a markedly elevated troponin >1000 but a question of EKG changes. Will need further cardiac work-up as well as therapy evaluations due to worsening ambulatory dysfunction - may need to consider additional rehab again. Has been falling frequently and she feels a due to her knees specially the left knee gives way frequently No significant injury from the fall except fracture of the terminal phalanx of right ring toe Fall precaution orthopedic boot continue PT and OT Fall precautions please (2) Acute hyponatremia: Plan: Sodium was 126 on admission Received small amounts of normal saline in the ER likely from poor fluid and solute intake given Salt Tab 1g BID Na 129 --> 132 Salt Tabd BID x 2 days, then repeat Na in 2-3 days re-assess if patient needs Salt tab 1 g BID (3) Acute non-ST elevation myocardial infarction (NSTEMI): Plan: no active chest pain, if troponin stable or decreasing and no EKG changes on repeat -Initial troponin was 1050 and subsequent troponins came down to 925 and then 652 without any EKG changes -The patient remains asymptomatic -Seat Builder consulted: no further intervention recommended -No beta-jenniffer administered due to low blood pressure (4) Toe fracture, right: Plan: Consulted ortho to determine if pt needs any additional stabilization or intervention for fracture Fracture of the terminal phalanx of right ring toe Appreciate Ortho input and recommendation for conservative management and follow-up As above-Will need orthopedic boot to continue physical therapy (5) Hypomagnesemia: Plan: resolved (6) Acute UTI (urinary tract infection): Plan: Urine culture: E. coli which is pansensitive given Ceftriaxone IV x 4 days d/c on Cefuroxime BID x 3 more days to complete 7 day course (7) Seizure disorder: Plan: Continue outpatient medication regimen (8) Hypothyroidism: Plan: Pt recently started levothyroxine - will continue (9) Peripheral neuropathy: Plan: Continue gabapentin Plan Code Status: Full Code DVT Prophylaxis: Chynanox Admission and Anticipated Discharge Date Admission Date: September 28, 2022 Subjective ff up for NSTEMI, Falls, etc seen resting in bed, comfortable in good spirits states she has some back pain- all over, from falling- but improving daily no weakness/numbness, focal neuro symptoms no chest pain, dyspnea, palpitations, dizziness no other symptoms states she is ready and agreeable for discharge today to Rehab Review of Systems Review of Systems: all noted and negative except for above Physical Exam Physical Exam: General- oriented x 3, not in distress, speaks in sentences with no effort or accessory muscle use Eyes- anicteric Neck- no JVD Lungs- clear BS bilaterally, no rales/wheezes Heart- normal rate, regular rhythm; no murmurs Abdomen- normal bowel sounds, nondistended, soft, nontender Extremities- no pretibial edema, no calf tenderness small hematoma R knee Neuro- alert, oriented x 3; no gross focal neurologic deficits Skin- warm & dry Results & Data Results & Data ([facility]) Vital Signs (Past 12 Hours) Vital Signs Temp Pulse Resp BP Pulse Ox O2 Del Method 10/02/22 07:50 36.4 C L 65 18 125/82 97 Room Air 10/02/22 03:10 36.3 C L 72 16 132/81 96 Room Air 10/01/22 23:06 36.6 C 75 18 112/77 94 Room Air all noted and reviewed including below
--- NOTE | 2022-10-02 10:57 | Discharge Summary ---
Discharge Summary Date of Service October 02, 2022 Notes For Next Care Provider Currently on salt tabs 1 g twice daily for hyponatremia. Repeat sodium in 2 to 3 days, reassess if patient needs to continue salt tabs. Monitor sodium level regularly. Encourage to drink plenty of fluids. Continue cefuroxime twice a day x3 days to complete 7-day course of antibiotic treatment for urinary tract infection. Please refer to accompanying hospital discharge summary for further details. Medication Changes From Visit as per above Admission HPI Per Admitting Provider This is a 71 y/o female with a PMH of seizure disorder, hypothyroidism, ambulatory dysfunction, compression fracture, sleep apnea (not on CPAP), and prior DVT who presented to the ED today with three falls in the last two days with resultant knee pain. Of note, pt was admitted to [facility] in Apr 2022 for fall with resultant L3 compression fracture for which she underwent kyphoplasty. Ultimately discharged to [facility] for rehab before returning homo. At home, she typically uses a walker and a lift chair. Yesterday, she was walking with her walker and there was a "dip" in the ground that she did not see. Lost her balance and fell onto her knees with resultant pain afterwards. Last evening, at home, her knees gave out on her while she was walking and she fell again. Thinks that she may have hit her head when she fell the second time. This morning, she was attempting to get out of her chair using her lift. While she was adjusting it higher, she slid out of the chair onto the ground, falling again. She did not hit her head this fall. Her main complaints at present are bilateral knee pain with movement and toe pain with movement. At rest, she denies any significant pain. She specifically denies chest pain, palpitation, dizziness, near-syncope/syncope, shortness of breath, visual disturbances, double vision, numbness, tingling. Admission Exam Per Admitting Provider Constitutional: well developed and well nourished; no acute distress Eyes: PERRL, conjunctivae normal, anicteric sclerae ENMT: external ear and nose normal, oropharynx normal Neck: trachea midline Respiratory: no respiratory distress and no labored breathing Auscultation: lungs clear to auscultation bilaterally; no rales, no rhonchi and no wheezes Cardiovascular: Rate/Rhythm: regular rate and regular rhythm Vessels: dorsalis pedis pulses present and radial pulses present Extremities: no pedal edema Gastrointestinal (Abdomen): Inspection/Auscultation: normal bowel sounds; abdomen not distended Percussion/Palpation: abdomen soft; abdomen nontender Musculoskeletal: bilateral knees with mild swelling and tenderness - faint ecchymosis bilaterally, right knee with abrasion, pain with flexion Skin: no jaundice Neurologic: moves all extremities; no focal motor deficits and not confused Psychiatric: A+Ox3, euthymic affect Principal Dx & Hospital Course #1 = Principal Diagnosis (1) Falls frequently: per Dr. Wiley's notes with addendum: 71 y/o female with a PMH of ambulatory dysfunction, multiple previous falls, prior compression fracture s/p kyphoplasty, seizure disorder, peripheral neuropathy, and hypothyroidism who presents to the ED with three falls in the last two days. Work-up in the ED for fractures was negative except for right toe fracture. However, noted to have a markedly elevated troponin >1000 but a question of EKG changes. Will need further cardiac work-up as well as therapy evaluations due to worsening ambulatory dysfunction - may need to consider additional rehab again. Has been falling frequently and she feels a due to her knees specially the left knee gives way frequently No significant injury from the fall except fracture of the terminal phalanx of right ring toe Fall precaution orthopedic boot continue PT and OT Fall precautions please (2) Acute hyponatremia: Sodium was 126 on admission Received small amounts of normal saline in the ER likely from poor fluid and solute intake given Salt Tab 1g BID Na 129 --> 132 Salt Tabd BID x 2 days, then repeat Na in 2-3 days re-assess if patient needs Salt tab 1 g BID (3) Acute non-ST elevation myocardial infarction (NSTEMI): no active chest pain, if troponin stable or decreasing and no EKG changes on repeat -Initial troponin was 1050 and subsequent troponins came down to 925 and then 652 without any EKG changes -The patient remains asymptomatic -Practice Nurse consulted: no further intervention recommended -No beta-jenniffer administered due to low blood pressure (4) Toe fracture, right: Consulted ortho to determine if pt needs any additional stabilization or intervention for fracture Fracture of the terminal phalanx of right ring toe Appreciate Ortho input and recommendation for conservative management and follow-up As above-Will need orthopedic boot to continue physical therapy (5) Hypomagnesemia: resolved (6) Acute UTI (urinary tract infection): Urine culture: E. coli which is pansensitive given Ceftriaxone IV x 4 days d/c on Cefuroxime BID x 3 more days to complete 7 day course (7) Seizure disorder: Continue outpatient medication regimen (8) Hypothyroidism: Pt recently started levothyroxine - will continue (9) Peripheral neuropathy: Continue gabapentin Plan Code Status: Full Code DVT Prophylaxis: Lovenox Discharge Exam General- oriented x 3, not in distress, speaks in sentences with no effort or accessory muscle use Eyes- anicteric Neck- no JVD Lungs- clear BS bilaterally, no rales/wheezes Heart- normal rate, regular rhythm; no murmurs Abdomen- normal bowel sounds, nondistended, soft, nontender Extremities- no pretibial edema, no calf tenderness small hematoma R knee Neuro- alert, oriented x 3; no gross focal neurologic deficits Skin- warm & dry Updated Medication List Medication Instructions Recorded Confirmed Type acetaminophen 500 mg tablet 1,000 mg PO Q6H PRN Pain 10/31/21 09/28/22 History (Tylenol Extra Strength) divalproex 500 mg tablet,extended 1,000 mg PO HS 10/31/21 09/28/22 History release 24 hr levetiracetam 500 mg tablet 500 mg PO BID 10/31/21 09/28/22 History levothyroxine 75 mcg tablet 75 mcg PO DAILY 10/31/21 09/28/22 History (Euthyrox) oxcarbazepine 150 mg tablet 450 mg PO BID 10/31/21 09/28/22 History gabapentin 300 mg capsule 300 mg PO BID 09/28/22 09/28/22 History meloxicam 7.5 mg tablet 7.5 mg PO DAILY 09/28/22 09/28/22 History cefuroxime axetil 250 mg tablet 250 mg PO BID 3 days #6 tabs 10/02/22 Rx docusate sodium 100 mg capsule 100 mg PO BID 7 days #14 caps 10/02/22 Rx sodium chloride 1,000 mg soluble 1,000 mg PO BID 2 days #4 tabs 10/02/22 Rx tablet Hospital Stay Data Consultations 09/28/22 11:36 ED Decision to Admit Stat 09/28/22 13:22 Consult Cardiology Routine 09/28/22 14:54 Consult Orthopedic Surgery Routine Diagnostic Imagining Performed 09/28/22 09:25 CT cervical spine wo con Stat FINDINGS: Demineralized appearance the bones with multilevel degenerative changes, similar to prior. No acute cervical spine fracture or subluxation. No prevertebral edema. Heterogeneous multinodular thyroid. The visualized lung apices appear clear. IMPRESSION: No acute cervical spine fracture or subluxation. ACT 112: Negative or not required by law. CT head/brain wo con Stat FINDINGS: No acute intracranial hemorrhage, midline shift, intracranial mass, territorial ischemia or abnormal extra-axial collection. Involutional changes with chronic microvascular ischemic disease. Unchanged ventriculomegaly. The calvarium is intact. Prior bilateral lens repair. The paranasal sinuses, mastoid air cells, and middle ear cavities are clear. IMPRESSION: No acute intracranial abnormality or calvarial fracture. ACT 112: Negative or not required by law. Pending Results Patient Have Any Pending Studies at Discharge: Yes Discharge Instructions Given to Patient (Per Discharging Provider) Currently on salt tabs 1 g twice daily for hyponatremia. Repeat sodium in 2 to 3 days, reassess if patient needs to continue salt tabs. Monitor sodium level regularly. Encourage to drink plenty of fluids. Continue cefuroxime twice a day x3 days to complete 7-day course of antibiotic treatment for urinary tract infection. Please refer to accompanying hospital discharge summary for further details. Total Time Total Time Spent Total Time Spent (In Minutes): > 30 minutes
[2022-10-02 12:18] VITALS: TEMP 97.9; O2SAT 94
[2022-10-02 15:59] VITALS: BP 98/66
[2022-10-02 17:43] VITALS: PULSE 72
--- NOTE | 2022-10-06 08:09 | Coding Query ---
CODING QUERY To promote full compliance with coding requirements relating to patient care, provider participation is requested in all cases of solo musician uncertainty. Please assist us with the question(s) below: Coding Question(s): Pt admitted with repeat falls,hyponatremia. Cardiology consulted for possible NSTEMI. Apical ballooning syndrome and cardiomyopathy noted in Cardiology consult/ note. Please check below the phrase that describes the NSTEMII Thank you. Leo Akers [employer] [facility] Physician's Response(s): NSTEMI was ruled out NSTEMI was diagnosed during this admission Cannot clinically correlate if NSTEMI was treated during this admission Other: Please document: Principal Diagnosis: "that condition established after study, to be chiefly responsible for occasioning the admission of the patient to the hospital for care." Co-Existing Principal Diagnosis: "when two or more diagnoses equally meet the criteria for principal diagnosis as determined by the circumstances of admission, diagnostic work up, and/or therapy provided, and the Alphabetic Index, Tabular List, or another coding guideline does not provide sequencing direction, any one of the diagnoses may be sequenced first." "When the physician has documented what appears to be a current diagnosis in the body of the record, but has not included the diagnosis in the final diagnostic statement, the physician should be asked whether the diagnosis should be added." (Source [facility]oding [facility] 2 QTR90. p3-4) RICKI
== END 2022-10-02 17:48 | DRG 281 ==
LOC: ED 09:05 → 2S 12:21 → SUATTDRO 12:21 → 2S 13:07

== ENCOUNTER 2023-01-26 19:30 | Inpatient (IN) ==
--- NOTE | 2023-01-26 19:40 | Emergency Department Note ---
Impression & Plan Closed fibular fracture, Fall, Ankle sprain, Acute hip pain, Hyponatremia ED Provider Note NAME: STEVIE CA AGE: 72 SEX: F : 1950 ARRIVES VIA: Ambulance INFORMANT: Patient, ED PROVIDER(S): Gonzales Hutchinson MD CHIEF COMPLAINT: Fall, hip and leg pain MEDICAL DECISION MAKING: Patient presents due to concern for fall and associated hip and leg pain. IV was established blood work obtained the patient was ordered IV morphine patient did have plain x-rays performed of the right hip knee ankle and foot. Was a possibility of a possible nondisplaced hip fracture so CT of the hip was ordered. No obvious fracture noted to the knee ankle or foot. Patient still had ambulatory dysfunction regardless. I did speak with Dr. Montanez and the patient was admitted to the medicine service. CT of the hip was negative. Patient was noted to have a fibular fracture. Patient's blood work did show normal white count H&H and platelet count with hyponatremia noted at 128. Kidney function is unremarkable. Patient will be admitted to the medicine service. Definitive Fracture Care note: Dx: Right fibular fracture Plan: Immobilization, rest, ice, elevation, analgesia, orthopedic follow up in 3-5 days. Prior /Outside records reviewed: Did review prior discharge summary from Dr. Fay in September 2022. Patient had presented due to concern for recurrence of falls and knee pain. Differential diagnosis: Fracture, dislocation, contusion, intra-abdominal, pneumothorax, intrathoracic, intracranial, neurologic, compartment syndrome, rhabdomyolysis, as well as other pathologies. Diagnostics, as interpreted by me: ECG: Normal sinus rhythm, rate of 73, normal intervals normal axis no ST elevations. Cardiac monitoring: An order was placed for continuous cardiac monitoring. The monitor shows a rate of 72 with sinus rhythm. Patient was placed on pulse oximetry Medical decision rules: Lincoln ankle rule Imaging studies: See below I informally reviewed the patient's CT of the hip which showed no obvious hip fracture HPI: Patient presents due to concern for fall. The patient states that she was going to sit down on the commode using her grab bar when she missed to the toilet seat and fell onto her right buttock and twisted her right ankle. Patient denies any chest pains or shortness of breath. Patient does not take any blood thinning medications. Patient does have a known history of seizures. Patient denies any head neck or abdominal pain. Patient denies any upper extremity or left lower extremity pain. The patient did not take any pain medication prior to arrival. The pain is primarily to the right hip and ankle and it is worse with palpation. The patient was not able to bear weight after her injury. The patient denies any head strike or LOC PAST MEDICAL HISTORY: See Below PAST SURGICAL HISTORY: See Below SOCIAL HISTORY: See Below HOME MEDICATIONS: See Below ALLERGIES: See Below VITALS: See Below PHYSICAL EXAMINATION: GENERAL: NAD, wearing glasses, non-toxic. EYE EXAM: Normal conjunctiva. PERRL, no anisocoria and EOM's grossly intact w/o pain. Head: Normocephalic atraumatic NECK: Supple, no nuchal rigidity, no adenopathy, non-tender. No signs of meningismus. FROM of the neck with good chin to chest and neck extension. No stridor. No midline C-spine TTP. LUNGS: Clear to auscultation. Normal chest wall mechanics. HEART: NSR, no MRG. Chest: Reproducible right-sided posterior rib pain. No overlying skin changes. ABDOMEN: Abdomen soft, non-tender, no masses, no rebound or guarding. BACK: No CVA TTP. SKIN: No rashes and no bruising. UPPER EXTREMITIES: Upper extremities are grossly normal. No TTP or deformity. LOWER EXTREMITIES: Pain to the right hip as well as the right patella, no obvious leg length discrepancy, neurovascular intact distally, mild pain to the bilateral malleolus and proximal foot. NEURO EXAM: A&O x3, cranial nerves II-XII grossly intact, normal speech, moves all 4 extremities. Past Med/Surg History Medical History Cancer SKIN CANCER Compression fracture Deep vein thrombosis Hallucination Hallucinations (05/29/11) Hearing deficit Hypothyroidism Hypothyroidism On home oxygen therapy [place] OXYGEN AT NIGHT (UNSURE OF LITER) Peripheral neuropathy Psychosis Pulmonary embolism Seizure LAST EPISODE (THIS YEAR/UNSURE OF DATE) ? SEIZURE TYPE>FOLLOWS WITH DR. PHOENIX. OLD RECORDS NOTE EPILEPSY Seizure disorder Sleep apnea NO DEVICE USED NOW (CPAP USED IN PAST) Witnessed seizure-like activity Surgical History History of adenoidectomy History of bilateral tubal ligation History of colonoscopy History of kyphoplasty History of tonsillectomy History of tooth extraction Family History Mother Family hx of colon cancer Social History Smoking Status: Never smoker Second Hand Exposure: Yes (Family members smoked during childhood); Do You Dip or Chew Tobacco: No; Hx Alcohol Use: No Hx Substance Use: No Preferred Language: Icelandic Communication Ability: Effective Intern Brand Required: No Beliefs That Will Affect Care: None marital status: Current Living Situation: Spouse and Other Current Living Situation Comment: Lives in independent living with How many Children do You have: 5 Other Information That Helps Us Care for You: No Feels Safe at Home: Yes Safety Concerns: Feels Safe At This Time Assistive Devices: Stair Lift and Walker Allergies Allergies Allergy/AdvReac Type Severity Reaction Status Date / Time codeine Allergy Intermediate Rash Unverified 01/26/23 20:17 amoxicillin Allergy Rash Verified 01/26/23 20:17 Home Meds Home Medications Medication Instructions Recorded Confirmed acetaminophen 500 mg tablet 1,000 mg PO Q6H PRN Pain 10/31/21 01/26/23 (Tylenol Extra Strength) divalproex 500 mg tablet,extended 1,000 mg PO HS 10/31/21 01/26/23 release 24 hr levetiracetam 500 mg tablet 500 mg PO BID 10/31/21 01/26/23 levothyroxine 75 mcg tablet 75 mcg PO DAILY 10/31/21 01/26/23 (Euthyrox) oxcarbazepine 150 mg tablet 450 mg PO BID 10/31/21 01/26/23 gabapentin 300 mg capsule 300 mg PO BID 09/28/22 01/26/23 cyanocobalamin (vitamin B-12) 1,000 mcg PO DAILY 01/26/23 01/26/23 1,000 mcg tablet (Vitamin B-12) glucosamine sulfate 750 mg tablet 750 mg PO DAILY 01/26/23 01/26/23 Results & Data (ED) Vital Signs Vital Signs - 24 hr 01/26/23 19:36 01/26/23 19:39 01/26/23 20:00 Temperature 36.6 C Temperature Source Oral Pulse Rate 77 72 73 Pulse Rate from SpO2 Sensor 71 Respiratory Rate 24 28 H 16 Respiratory Effort / Characteristics Non-Labored Spontaneous Respiratory Depth Normal Blood Pressure 127/73 Blood Pressure Mean 91 Pulse Oximetry 96 96 Oxygen Delivery Method Room Air Sepsis Recent Fever Within 48 Hours No Sepsis New/Unexplained Change in Mental Status N/A Sepsis Action Taken by Nursing No Action Required 01/26/23 21:30 01/26/23 22:00 Temperature Temperature Source Pulse Rate 68 67 Pulse Rate from SpO2 Sensor 67 Respiratory Rate 16 18 Respiratory Effort / Characteristics Respiratory Depth Blood Pressure Blood Pressure Mean Pulse Oximetry 96 Oxygen Delivery Method Room Air Sepsis Recent Fever Within 48 Hours Sepsis New/Unexplained Change in Mental Status Sepsis Action Taken by [facility] Medications Current Medication List: was personally reviewed by me Laboratory Data Attestation: I reviewed the patient's lab results. 01/26/23 20:17 01/26/23 20:17 Lab Results 01/26/23 01/26/23 01/26/23 Range/Units 20:17 20:17 20:17 WBC 6.18 (4.8-10.8) K/ul RBC 4.39 (4.20-5.40) M/uL Hgb 14.4 (12.0-16.0) g/dl Hct 40.3 (37.0-47.0) % MCV 91.8 (80.0-100.0) fL MCH 32.8 (25.0-34.0) pg MCHC 35.7 (32.0-36.0) g/dL RDW Std Deviation 41.2 (36.4-46.3) fL RDW Coeff of Benigno 12.2 (11.5-14.5) % Plt Count 207 (130-400) K/uL MPV 9.9 (9.4-12.4) fL Immature Gran % (Auto) 0.2 % Neut % (Auto) 73.6 % Lymph % (Auto) 13.3 % Seward % (Auto) 10.8 % Eos % (Auto) 1.5 % Baso % (Auto) 0.6 % Neut # (Auto) 4.55 (1.40-6.50) K/uL Lymph # (Auto) 0.82 L (1.2-3.4) K/uL Seward # (Auto) 0.67 H (0.11-0.59) K/uL Eos # (Auto) 0.09 (0-0.50) K/uL Baso # (Auto) 0.04 (0-0.2) K/uL Immature Gran # (Auto) 0.01 (0.01-0.20) K/uL PT 11.3 (9.0-12.0) Seconds INR 1.0 (0.9-1.1) APTT 24.4 (21.0-31.0) Seconds PTT Ratio 0.9 Sodium 128 L (136-145) mmol/L Potassium 4.1 (3.5-5.1) mmol/L Chloride 95 L (98-107) mmol/L Carbon Dioxide 26 (21-32) mmol/L Anion Gap 7 (3-11) BUN 7 (6-23) mg/dl Creatinine 0.41 L (0.6-1.2) mg/dl Est Cr Clr Drug Dosing Not Reportable Est GFR ( Amer) 120.5 ml/min Est GFR (Non-Af Amer) 103.9 ml/min BUN/Creatinine Ratio 17.1 (10-20) Glucose 107 H (70-99(Fasting)) mg/dl Osmolality (280-300) mOsm/kg Calcium 9.1 (8.6-10.3) mg/dl Magnesium 1.7 (1.7-2.4) mg/dl Total Bilirubin 0.4 (0.2-1.0) mg/dl AST 12 L (13-39) U/L ALT 9 (7-52) U/L Alkaline Phosphatase 61 (34-104) U/L Total Protein 6.9 (6.0-8.3) gm/dl Albumin 3.9 (3.4-5.0) gm/dl Globulin 3.0 (2.5-4.0) gm/dl Albumin/Globulin Ratio 1.3 (0.9-2) TSH (0.300-4.500) uIu/ml Urine Color Urine Appearance (Clear) Urine pH (4.5-7.5) Ur Specific Fraser (1.000-1.030) Urine Protein (Negative) Urine Glucose (UA) (Negative) Urine Ketones (Negative) Urine Blood (Negative) Urine Nitrite (Negative) Urine Bilirubin (Negative) Urine Urobilinogen (Negative) Ur Leukocyte Esterase (Negative) Urine WBC (Auto) (0-5) /hpf Urine RBC (Auto) (0-4) /hpf U Hyaline Cast (Auto) (0-5) /lpf U Epithel Cells (Auto) (0-5) /lpf Urine Bacteria (Auto) (Negative) Urine Yeast Urine Osmolality (500-800) mOsm/kg Ur Random Sodium mmol/L Valproic Acid (50-100) mcg/ml SARS-CoV-2, RNA, NAAT (NEGATIVE) 01/26/23 01/26/23 01/26/23 Range/Units 20:17 20:17 20:17 WBC (4.8-10.8) K/ul RBC (4.20-5.40) M/uL Hgb (12.0-16.0) g/dl Hct (37.0-47.0) % MCV (80.0-100.0) fL MCH (25.0-34.0) pg MCHC (32.0-36.0) g/dL RDW Std Deviation (36.4-46.3) fL RDW Coeff of Benigno (11.5-14.5) % Plt Count (130-400) K/uL MPV (9.4-12.4) fL Immature Gran % (Auto) % Neut % (Auto) % Lymph % (Auto) % Seward % (Auto) % Eos % (Auto) % Baso % (Auto) % Neut # (Auto) (1.40-6.50) K/uL Lymph # (Auto) (1.2-3.4) K/uL Seward # (Auto) (0.11-0.59) K/uL Eos # (Auto) (0-0.50) K/uL Baso # (Auto) (0-0.2) K/uL Immature Gran # (Auto) (0.01-0.20) K/uL PT (9.0-12.0) Seconds INR (0.9-1.1) APTT (21.0-31.0) Seconds PTT Ratio Sodium (136-145) mmol/L Potassium (3.5-5.1) mmol/L Chloride (98-107) mmol/L Carbon Dioxide (21-32) mmol/L Anion Gap (3-11) BUN (6-23) mg/dl Creatinine (0.6-1.2) mg/dl Est Cr Clr Drug Dosing Est GFR ( Amer) ml/min Est GFR (Non-Af Amer) ml/min BUN/Creatinine Ratio (10-20) Glucose (70-99(Fasting)) mg/dl Osmolality 269 L (280-300) mOsm/kg Calcium (8.6-10.3) mg/dl Magnesium (1.7-2.4) mg/dl Total Bilirubin (0.2-1.0) mg/dl AST (13-39) U/L ALT (7-52) U/L Alkaline Phosphatase (34-104) U/L Total Protein (6.0-8.3) gm/dl Albumin (3.4-5.0) gm/dl Globulin (2.5-4.0) gm/dl Albumin/Globulin Ratio (0.9-2) TSH 1.969 (0.300-4.500) uIu/ml Urine Color Urine Appearance (Clear) Urine pH (4.5-7.5) Ur Specific Fraser (1.000-1.030) Urine Protein (Negative) Urine Glucose (UA) (Negative) Urine Ketones (Negative) Urine Blood (Negative) Urine Nitrite (Negative) Urine Bilirubin (Negative) Urine Urobilinogen (Negative) Ur Leukocyte Esterase (Negative) Urine WBC (Auto) (0-5) /hpf Urine RBC (Auto) (0-4) /hpf U Hyaline Cast (Auto) (0-5) /lpf U Epithel Cells (Auto) (0-5) /lpf Urine Bacteria (Auto) (Negative) Urine Yeast Urine Osmolality (500-800) mOsm/kg Ur Random Sodium mmol/L Valproic Acid 72 (50-100) mcg/ml SARS-CoV-2, RNA, NAAT (NEGATIVE) 01/26/23 01/26/23 01/26/23 Range/Units 21:39 22:16 22:16 WBC (4.8-10.8) K/ul RBC (4.20-5.40) M/uL Hgb (12.0-16.0) g/dl Hct (37.0-47.0) % MCV (80.0-100.0) fL MCH (25.0-34.0) pg MCHC (32.0-36.0) g/dL RDW Std Deviation (36.4-46.3) fL RDW Coeff of Benigno (11.5-14.5) % Plt Count (130-400) K/uL MPV (9.4-12.4) fL Immature Gran % (Auto) % Neut % (Auto) % Lymph % (Auto) % Sew[place] % (Auto) % Eos % (Auto) % Baso % (Auto) % Neut # (Auto) (1.40-6.50) K/uL Lymph # (Auto) (1.2-3.4) K/uL [place] # (Auto) (0.11-0.59) K/uL Eos # (Auto) (0-0.50) K/uL Baso # (Auto) (0-0.2) K/uL Immature Gran # (Auto) (0.01-0.20) K/uL PT (9.0-12.0) Seconds INR (0.9-1.1) APTT (21.0-31.0) Seconds PTT Ratio Sodium (136-145) mmol/L Potassium (3.5-5.1) mmol/L Chloride (98-107) mmol/L Carbon Dioxide (21-32) mmol/L Anion Gap (3-11) BUN (6-23) mg/dl Creatinine (0.6-1.2) mg/dl Est Cr Clr Drug Dosing Est GFR ( Amer) ml/min Est GFR (Non-Af Amer) ml/min BUN/Creatinine Ratio (10-20) Glucose (70-99(Fasting)) mg/dl Osmolality (280-300) mOsm/kg Calcium (8.6-10.3) mg/dl Magnesium (1.7-2.4) mg/dl Total Bilirubin (0.2-1.0) mg/dl AST (13-39) U/L ALT (7-52) U/L Alkaline Phosphatase (34-104) U/L Total Protein (6.0-8.3) gm/dl Albumin (3.4-5.0) gm/dl Globulin (2.5-4.0) gm/dl Albumin/Globulin Ratio (0.9-2) TSH (0.300-4.500) uIu/ml Urine Color Yellow Urine Appearance Clear (Clear) Urine pH 7.0 (4.5-7.5) Ur Specific Fraser 1.014 (1.000-1.030) Urine Protein Trace H (Negative) Urine Glucose (UA) Negative (Negative) Urine Ketones 1+ H (Negative) Urine Blood Negative (Negative) Urine Nitrite Negative (Negative) Urine Bilirubin Negative (Negative) Urine Urobilinogen Negative (Negative) Ur Leukocyte Esterase Negative (Negative) Urine WBC (Auto) 1-5 (0-5) /hpf Urine RBC (Auto) 0-4 (0-4) /hpf U Hyaline Cast (Auto) 1-5 (0-5) /lpf U Epithel Cells (Auto) >30 H (0-5) /lpf Urine Bacteria (Auto) 1+ H (Negative) Urine Yeast Not Reportable Urine Osmolality 426 L (500-800) mOsm/kg Ur Random Sodium mmol/L Valproic Acid (50-100) mcg/ml SARS-CoV-2, RNA, NAAT NEGATIVE (NEGATIVE) 01/26/23 Range/Units 22:16 WBC (4.8-10.8) K/ul RBC (4.20-5.40) M/uL Hgb (12.0-16.0) g/dl Hct (37.0-47.0) % MCV (80.0-100.0) fL MCH (25.0-34.0) pg MCHC (32.0-36.0) g/dL RDW Std Deviation (36.4-46.3) fL RDW Coeff of Benigno (11.5-14.5) % Plt Count (130-400) K/uL MPV (9.4-12.4) fL Immature Gran % (Auto) % Neut % (Auto) % Lymph % (Auto) % Seward % (Auto) % Eos % (Auto) % Baso % (Auto) % Neut # (Auto) (1.40-6.50) K/uL Lymph # (Auto) (1.2-3.4) K/uL Seward # (Auto) (0.11-0.59) K/uL Eos # (Auto) (0-0.50) K/uL Baso # (Auto) (0-0.2) K/uL Immature Gran # (Auto) (0.01-0.20) K/uL PT (9.0-12.0) Seconds INR (0.9-1.1) APTT (21.0-31.0) Seconds PTT Ratio Sodium (136-145) mmol/L Potassium (3.5-5.1) mmol/L Chloride (98-107) mmol/L Carbon Dioxide (21-32) mmol/L Anion Gap (3-11) BUN (6-23) mg/dl Creatinine (0.6-1.2) mg/dl Est Cr Clr Drug Dosing Est GFR ( Amer) ml/min Est GFR (Non-Af Amer) ml/min BUN/Creatinine Ratio (10-20) Glucose (70-99(Fasting)) mg/dl Osmolality (280-300) mOsm/kg Calcium (8.6-10.3) mg/dl Magnesium (1.7-2.4) mg/dl Total Bilirubin (0.2-1.0) mg/dl AST (13-39) U/L ALT (7-52) U/L Alkaline Phosphatase (34-104) U/L Total Protein (6.0-8.3) gm/dl Albumin (3.4-5.0) gm/dl Globulin (2.5-4.0) gm/dl Albumin/Globulin Ratio (0.9-2) TSH (0.300-4.500) uIu/ml Urine Color Urine Appearance (Clear) Urine pH (4.5-7.5) Ur Specific Fraser (1.000-1.030) Urine Protein (Negative) Urine Glucose (UA) (Negative) Urine Ketones (Negative) Urine Blood (Negative) Urine Nitrite (Negative) Urine Bilirubin (Negative) Urine Urobilinogen (Negative) Ur Leukocyte Esterase (Negative) Urine WBC (Auto) (0-5) /hpf Urine RBC (Auto) (0-4) /hpf U Hyaline Cast (Auto) (0-5) /lpf U Epithel Cells (Auto) (0-5) /lpf Urine Bacteria (Auto) (Negative) Urine Yeast Urine Osmolality (500-800) mOsm/kg Ur Random Sodium 58 mmol/L Valproic Acid (50-100) mcg/ml SARS-CoV-2, RNA, NAAT (NEGATIVE) Administered Medications Cyanocobalamin (Cyanocobalamin (B-12) 500 Mcg Tablet) 1,000 mcg PO DAILY SACHA Stop: 02/26/23 08:59 Last Admin: 01/28/23 08:32 Dose: 1,000 mcg Documented By: Admin: 01/27/23 08:06 Dose: 1,000 mcg Documented By: MORTEZA Divalproex Sodium (Divalproex Extended Release 500 Mg Tab) 1,000 mg PO HS SACHA Stop: 02/26/23 20:59 Last Admin: 01/27/23 20:19 Dose: 1,000 mg Documented By: HERNAN Enoxaparin Sodium (Enoxaparin Inj 40 Mg/0.4 Ml Syr) 40 mg SQ QAM SACHA Stop: 02/26/23 08:59 Last Admin: 01/28/23 08:31 Dose: 40 mg Documented By: Admin: 01/27/23 08:07 Dose: 40 mg Documented By: MORTEZA Gabapentin (Gabapentin 300 Mg Cap) 300 mg PO BID SACHA Stop: 02/26/23 00:47 Last Admin: 01/28/23 08:32 Dose: 300 mg Documented By: Admin: 01/27/23 20:17 Dose: 300 mg Documented By: Admin: 01/27/23 08:09 Dose: 300 mg Documented By: Admin: 01/27/23 01:07 Dose: 300 mg Documented By: AYE Glucosamine Sulfate (Glucosamine Sulfate 500 Mg Cap) 500 mg PO DAILY SACHA Stop: 02/26/23 08:59 Last Admin: 01/28/23 08:32 Dose: 500 mg Documented By: Admin: 01/27/23 08:09 Dose: 500 mg Documented By: MORTEZA Levetiracetam (Levetiracetam 500 Mg Tab) 500 mg PO BID SACHA Stop: 02/26/23 08:59 Last Admin: 01/28/23 08:32 Dose: 500 mg Documented By: Admin: 01/27/23 20:18 Dose: 500 mg Documented By: Admin: 01/27/23 08:08 Dose: 500 mg Documented By: MORTEZA Levothyroxine Sodium (Levothyroxine Sodium 75 Mcg Tablet) 75 mcg PO DAILYBB SACHA Stop: 02/26/23 06:29 Last Admin: 01/28/23 05:52 Dose: 75 mcg Documented By: Admin: 01/27/23 05:34 Dose: 75 mcg Documented By: AYE Nystatin (Nystatin Cr 15 Gm Tube) 1 appln EXT BID SACHA Stop: 02/26/23 09:29 Last Admin: 01/28/23 08:32 Dose: 1 appln Documented By: Admin: 01/27/23 20:17 Dose: 1 appln Documented By: Admin: 01/27/23 10:46 Dose: 1 appln Documented By: MORTEZA Oxcarbazepine (Oxcarbazepine 150 Mg Tablet) 450 mg PO BID SACHA Stop: 02/26/23 08:59 Last Admin: 01/28/23 08:32 Dose: 450 mg Documented By: Admin: 01/27/23 20:16 Dose: 450 mg Documented By: Admin: 01/27/23 08:08 Dose: 450 mg Documented By: MORTEZA Oxycodone HCl (Oxycodone Hcl Ir 5 Mg Tab (Immediate Release)) 5 - 10 mg PO QID PRN PRN Reason: Pain Stop: 02/09/23 23:56 Last Admin: 01/28/23 10:21 Dose: 5 mg Documented By: Admin: 01/27/23 21:33 Dose: 5 mg Documented By: POLINA Discontinued Medications Acetaminophen (Acetaminophen 500 Mg Tab) 1,000 mg PO NOW STA Stop: 01/26/23 21:25 Last Admin: 01/26/23 21:37 Dose: 1,000 mg Documented By: AYANA Sodium Chloride (Nss) 500 mls @ 80 mls/hr IV .Q6H15M ONE Stop: 01/27/23 03:59 Last Infusion: 01/27/23 05:35 Dose: 0 mls/hr Documented By: Admin: 01/26/23 21:54 Dose: 80 mls/hr Documented By: AYANA Levetiracetam (Levetiracetam 500 Mg Tab) 500 mg PO NOW STA Stop: 01/26/23 23:58 Last Admin: 01/27/23 01:07 Dose: 500 mg Documented By: AYE Imaging Data Radiologist's Impression: Hip/Pelvis X-Ray 01/26/23 19:50 SINGLE VIEW PELVIS; 2 VIEWS RIGHT HIP CLINICAL HISTORY: Right hip pain. Decreased range of motion. Fall. FINDINGS: AP view of the pelvis with AP and frog-leg views of the right hip are compared to study dated 09/28/2022. The skeletal structures are osteopenic. There is no radiographic evidence of acute fracture involving the hips or bony pelvis. Rsyv-so-weyiusnz arthritic change and joint space narrowing is seen in the hips. There is degenerative sclerosis in the sacroiliac joints and pubic symphysis. Enthesophytes arise from the anterior superior iliac spines. There is a compression deformity in the lower lumbar spine with evidence of previous vertebroplasty. The overlying soft tissues are within normal limits. Phleboliths are seen in the pelvis. IMPRESSION: No acute bony abnormality is identified. Electronically signed by: Janusz Casillas M.D. 01/26/2023 10:[address] 01/26/23 21:21 CT SCAN OF THE RIGHT HIP WITHOUT IV CONTRAST CLINICAL HISTORY: Fall. Right hip injury. COMPARISON STUDY: Radiographs of the right hip dated 01/26/2023. Pelvic CT dated 10/31/2021. TECHNIQUE: CT scan of the right hip is performed from the bony pelvis to the femoral shaft. Images are reviewed in the axial, sagittal, and coronal planes. IV contrast was not administered for this examination. 3-D reformats are created and assessed. A dose lowering technique was utilized adhering to the principles of ALARA. CT DOSE: 968.11 mGy.cm FINDINGS: The skeletal structures are osteopenic. There is no evidence of acute fracture involving the right hip or the visualized right hemipelvis. Mild arthritic change is seen in the right hip. There is no evidence of avascular necrosis of the right femoral head. No lytic or blastic lesion is seen. Sclerotic change is noted in the pubic symphysis. The regional musculature is normal in appearance. The bladder and uterus are normal as visualized. There is no soft tissue hematoma. No right inguinal lymphadenopathy is seen. IMPRESSION: No fracture is identified. ACT 112: Negative or not required by law. Electronically signed by: Janusz Casillas M.D. 01/26/2023 10:29 PM Ankle X-Ray 01/26/23 19:50 RIGHT ANKLE 3 VIEWS CLINICAL HISTORY: Fall. Right ankle injury. FINDINGS: 3 views of the right ankle are obtained. No prior studies are available for comparison at the time of dictation. The skeletal structures are osteopenic. Question a nondisplaced fracture of the lateral malleolus. Soft tissue swelling is present around the ankle. No additional fracture is seen. The ankle mortise is intact. IMPRESSION: 1. Question a nondisplaced lateral malleolar fracture. 2. No additional findings are suspicious for acute fracture. 3. Soft tissue swelling is present around the ankle. Electronically signed by: Janusz Casillas M.D. 01/26/2023 10:42 PM Foot X-Ray 01/26/23 19:50 RIGHT FOOT 3 VIEWS CLINICAL HISTORY: Fall. Right foot injury. FINDINGS: 3 views of the right foot are compared to study dated 09/28/2022. The skeletal structures are osteopenic. No acute fracture is identified. There is chronic posttraumatic deformity of the fifth proximal phalanx. Mild osteoarthritic change is seen throughout the foot. There are dorsal and plantar heel spurs. Degenerative spurring is seen along the dorsal aspect of the tarsal bones. Soft tissue swelling is present around the ankle and along the dorsum of the foot. IMPRESSION: Soft tissue swelling with no fracture identified. Electronically signed by: Janusz Casillas M.D. 01/26/2023 10:47 PM Hip/Pelvis X-Ray 01/26/23 19:50 SINGLE VIEW PELVIS; 2 VIEWS RIGHT HIP CLINICAL HISTORY: Right hip pain. Decreased range of motion. Fall. FINDINGS: AP view of the pelvis with AP and frog-leg views of the right hip are compared to study dated 09/28/2022. The skeletal structures are osteopenic. There is no radiographic evidence of acute fracture involving the hips or bony pelvis. Euej-[id number] arthritic change and joint space narrowing is seen in the hips. There is degenerative sclerosis in the sacroiliac joints and pubic symphysis. Enthesophytes arise from the anterior superior iliac spines. There is a compression deformity in the lower lumbar spine with evidence of previous vertebroplasty. The overlying soft tissues are within normal limits. Phleboliths are seen in the pelvis. IMPRESSION: No acute bony abnormality is identified. Electronically signed by: Janusz Casillas M.D. 01/26/2023 10:25 PM Knee X-Ray 01/26/23 19:50 RIGHT KNEE 2 VIEWS CLINICAL HISTORY: Fall. Right knee injury. FINDINGS: AP and crosstable lateral views of the right knee are compared to study dated 09/28/2022. The skeletal structures are osteopenic. No fracture is seen. There is eikh-rq-[id number] tricompartmental degenerative joint space narrowing. There are marginal osteophytes and patellar enthesophytes. There is a small joint effusion. A calcified fabella is incidentally noted. There is bony overgrowth along the anterior tibial tuberosity. Mild prepatellar soft tissue swelling is observed. IMPRESSION: 1. Prepatellar soft tissue swelling with no fracture identified. 2. Osteopenia and degenerative changes above. Electronically signed by: Janusz Casillas M.D. 01/26/2023 10:38 PM Ribs w/Chest X-Ray 01/26/23 19:50 AP CHEST WITH RIGHT SIDED RIB SERIES CLINICAL HISTORY: Fall. Right-sided chest wall pain. FINDINGS: 2 AP supine chest radiographs with 4 additional views from a right sided rib series are compared to study dated 11/09/2022. Correlation is made with chest CT dated 11/12/2020. An electronic device projects over the left chest. The heart is enlarged. The pulmonary vasculature is noncongested. Chronic interstitial thickening is similar to previous. No airspace consolidation or large pleural effusion is identified. No pneumothorax is seen. The skeletal structures are osteopenic. There is no radiographic evidence of acute/displaced right-sided rib fracture on rib series. There are numerous lumbar compression fractures with multilevel vertebroplasty. IMPRESSION: 1. Cardiomegaly with no acute cardiopulmonary abnormality. 2. There is no radiographic evidence of acute/displaced right-sided rib fracture on the rib series. ACT 112: Negative or not required by law. Electronically signed by: Janusz Casillas M.D. 01/26/2023 10:[address] 01/26/23 21:21 CT SCAN OF THE RIGHT HIP WITHOUT IV CONTRAST CLINICAL HISTORY: Fall. Right hip injury. COMPARISON STUDY: Radiographs of the right hip dated 01/26/2023. Pelvic CT dated 10/31/2021. TECHNIQUE: CT scan of the right hip is performed from the bony pelvis to the femoral shaft. Images are reviewed in the axial, sagittal, and coronal planes. IV contrast was not administered for this examination. 3-D reformats are created and assessed. A dose lowering technique was utilized adhering to the principles of ALARA. CT DOSE: 968.11 mGy.cm FINDINGS: The skeletal structures are osteopenic. There is no evidence of acute fracture involving the right hip or the visualized right hemipelvis. Mild arthritic change is seen in the right hip. There is no evidence of avascular necrosis of the right femoral head. No lytic or blastic lesion is seen. Sclerotic change is noted in the pubic symphysis. The regional musculature is normal in appearance. The bladder and uterus are normal as visualized. There is no soft tissue hematoma. No right inguinal lymphadenopathy is seen. IMPRESSION: No fracture is identified. ACT 112: Negative or not required by law. Electronically signed by: Janusz Casillas M.D. 01/26/2023 10:29 PM Discharge Plan Visit Data Chief Complaint: Fall Stated Complaint: R Leg Pain, R Hip Pain ED Provider: Gonzales Hutchinson Discharge Problem: Closed fibular fracture, Fall, Ankle sprain, Acute hip pain, Hyponatremia Patient Disposition: Admitted As Inpatient Discharge Instructions Interventions: ED Discharge Assessment Last Done: 01/27/23 00:19
[2023-01-26] MEDS ORDERED: MoRPHine SULFATE 2 MG/ML CARP IV PRN (19:50)
[2023-01-26 20:34] LABS: Basophils # (auto) 0.04 K/uL (0-0.2); Basophils % (auto) 0.6 %; Eosinophils # (auto) 0.09 K/uL (0-0.50); Eosinophils % (auto) 1.5 %; Hematocrit (blood only) 40.3 % (37.0-47.0); Hemoglobin 14.4 g/dl (12.0-16.0); Immature Granulocytes # (auto) 0.01 K/uL (0.01-0.20); Immature Granulocytes % (auto) 0.2 %; Lymphocytes # (auto) 0.82 K/uL (1.2-3.4); Lymphocytes % (auto) 13.3 %; Mean Corpuscular Hemoglobin 32.8 pg (25.0-34.0); Mean Corpuscular Hgb Conc 35.7 g/dL (32.0-36.0); Mean Corpuscular Volume 91.8 fL (80.0-100.0); Mean Platelet Volume 9.9 fL (9.4-12.4); Monocytes # (auto) 0.67 K/uL (0.11-0.59); Monocytes % (auto) 10.8 %; Neutrophils # (auto) 4.55 K/uL (1.40-6.50); Neutrophils % (auto) 73.6 %; Platelet Count 207 K/uL (130-400); RDW Coefficient of Variation 12.2 % (11.5-14.5); RDW Standard Deviation 41.2 fL (36.4-46.3); Red Blood Count 4.39 M/uL (4.20-5.40); White Blood Count 6.18 K/ul (4.8-10.8)
[2023-01-26 20:49] LABS: Alanine Aminotransferase 9 U/L (7-52); Albumin Globulin Ratio 1.3 (0.9-2); Albumin Level 3.9 gm/dl (3.4-5.0); Alkaline Phosphatase 61 U/L (34-104); Anion Gap 7 (3-11); Aspartate Aminotransferase 12 U/L (13-39); BUN Creatinine Ratio 17.1 (10-20); Bilirubin,Total 0.4 mg/dl (0.2-1.0); Blood Urea Nitrogen 7 mg/dl (6-23); Calcium 9.1 mg/dl (8.6-10.3); Carbon Dioxide 26 mmol/L (21-32); Chloride 95 mmol/L (98-107); Est GFR (African American) 120.5 ml/min; Est GFR (Non-African American) 103.9 ml/min; Glucose 107 mg/dl (70-99(Fasting)); Potassium 4.1 mmol/L (3.5-5.1); Sodium 128 mmol/L (136-145); Total Protein 6.9 gm/dl (6.0-8.3)
[2023-01-26 21:03] LABS: Partial Thromboplastin Ratio 0.9; Partial Thromboplastin Time 24.4 Seconds (21.0-31.0); Prothrombin Time 11.3 Seconds (9.0-12.0)
[2023-01-26] MEDS ORDERED: ACETAMINOPHEN 500 MG TAB PO STA (21:24)
[2023-01-26] MEDS ORDERED: SODIUM CHLORIDE 0.9% 500 ML IV ONE (21:45)
[2023-01-26 22:01] LABS: Magnesium 1.7 mg/dl (1.7-2.4)
--- NOTE | 2023-01-26 22:27 | XRay Report ---
SINGLE VIEW PELVIS; 2 VIEWS RIGHT HIP CLINICAL HISTORY: Right hip pain. Decreased range of motion. Fall. FINDINGS: AP view of the pelvis with AP and frog-leg views of the right hip are compared to study federico ed 09/28/2022. The skeletal structures are osteopenic. There is no radiographic evidence of acute frac ture involving the hips or bony pelvis. Qbyu-cc-popeieqr arthritic change and joint space narrowing i s seen in the hips. There is degenerative sclerosis in the sacroiliac joints and pubic symphysis. Ent hesophytes arise from the anterior superior iliac spines. There is a compression deformity in the low er lumbar spine with evidence of previous vertebroplasty. The overlying soft tissues are within jimmy l limits. Phleboliths are seen in the pelvis. IMPRESSION: No acute bony abnormality is identified. Electronically signed by: Janusz Casillas M.D. 01/26/2023 10:25 PM
[2023-01-26 22:28] LABS: Appearance Urine Clear (Clear); Bacteria Urine Automated 1+ (Negative); Bilirubin Urine Negative (Negative); Blood Urine Negative (Negative); Color Urine Yellow; Epithelial Cell Urine Auto >30 /lpf (0-5); Glucose Urine UA Negative (Negative); Ketones Urine 1+ (Negative); Leukocyte Esterase Urine Negative (Negative); Nitrite Urine Negative (Negative); Protein Urine Trace (Negative); Specific Gravity Urine 1.014 (1.000-1.030); Urobilinogen Urine Negative (Negative)
--- NOTE | 2023-01-26 22:30 | CT Scan Report ---
CT SCAN OF THE RIGHT HIP WITHOUT IV CONTRAST CLINICAL HISTORY: Fall. Right hip injury. COMPARISON STUDY: Radiographs of the right hip dated 01/26/2023. Pelvic CT dated 10/31/2021. TECHNIQUE: CT scan of the right hip is performed from the bony pelvis to the femoral shaft. Images a re reviewed in the axial, sagittal, and coronal planes. IV contrast was not administered for this exa mination. 3-D reformats are created and assessed. A dose lowering technique was utilized adhering to the principles of ALARA. CT DOSE: 968.11 mGy.cm FINDINGS: The skeletal structures are osteopenic. There is no evidence of acute fracture involving th e right hip or the visualized right hemipelvis. Mild arthritic change is seen in the right hip. There is no evidence of avascular necrosis of the right femoral head. No lytic or blastic lesion is seen. Sclerotic change is noted in the pubic symphysis. The regional musculature is normal in appearance. T he bladder and uterus are normal as visualized. There is no soft tissue hematoma. No right inguinal l ymphadenopathy is seen. IMPRESSION: No fracture is identified. ACT 112: Negative or not required by law. Electronically signed by: Janusz Casillas M.D. 01/26/2023 10:29 PM
--- NOTE | 2023-01-26 22:39 | XRay Report ---
RIGHT KNEE 2 VIEWS CLINICAL HISTORY: Fall. Right knee injury. FINDINGS: AP and crosstable lateral views of the right knee are compared to study dated 09/28/2022. Th e skeletal structures are osteopenic. No fracture is seen. There is rorc-wc-chiyybir tricompartmental degenerative joint space narrowing. There are marginal osteophytes and patellar enthesophytes. There is a small joint effusion. A calcified fabella is incidentally noted. There is bony overgrowth along the anterior tibial tuberosity. Mild prepatellar soft tissue swelling is observed. IMPRESSION: 1. Prepatellar soft tissue swelling with no fracture identified. 2. Osteopenia and degenerative changes above. Electronically signed by: Janusz Casillas M.D. 01/26/2023 10:38 PM
[2023-01-26 22:43] LABS: RBC Urine Automated 0-4 /hpf (0-4)
--- NOTE | 2023-01-26 22:44 | XRay Report ---
RIGHT ANKLE 3 VIEWS CLINICAL HISTORY: Fall. Right ankle injury. FINDINGS: 3 views of the right ankle are obtained. No prior studies are available for comparison at t he time of dictation. The skeletal structures are osteopenic. Question a nondisplaced fracture of the lateral malleolus. Soft tissue swelling is present around the ankle. No additional fracture is seen. The ankle mortise is intact. IMPRESSION: 1. Question a nondisplaced lateral malleolar fracture. 2. No additional findings are suspicious for acute fracture. 3. Soft tissue swelling is present around the ankle. Electronically signed by: Janusz Casillas M.D. 01/26/2023 10:42 PM
--- NOTE | 2023-01-26 22:50 | XRay Report ---
RIGHT FOOT 3 VIEWS CLINICAL HISTORY: Fall. Right foot injury. FINDINGS: 3 views of the right foot are compared to study dated 09/28/2022. The skeletal structures ar e osteopenic. No acute fracture is identified. There is chronic posttraumatic deformity of the fifth proximal phalanx. Mild osteoarthritic change is seen throughout the foot. There are dorsal and planta r heel spurs. Degenerative spurring is seen along the dorsal aspect of the tarsal bones. Soft tissue swelling is present around the ankle and along the dorsum of the foot. IMPRESSION: Soft tissue swelling with no fracture identified. Electronically signed by: Janusz Casillas M.D. 01/26/2023 10:47 PM
--- NOTE | 2023-01-26 23:00 | XRay Report ---
AP CHEST WITH RIGHT SIDED RIB SERIES CLINICAL HISTORY: Fall. Right-sided chest wall pain. FINDINGS: 2 AP supine chest radiographs with 4 additional views from a right sided rib series are com pared to study dated 11/09/2022. Correlation is made with chest CT dated 11/12/2020. An electronic device projects over the left chest. The heart is enlarged. The pulmonary vasculature is noncongested. Asset Protection Assistant natalia interstitial thickening is similar to previous. No airspace consolidation or large pleural effusi on is identified. No pneumothorax is seen. The skeletal structures are osteopenic. There is no radiog raphic evidence of acute/displaced right-sided rib fracture on rib series. There are numerous lumbar compression fractures with multilevel vertebroplasty. IMPRESSION: 1. Cardiomegaly with no acute cardiopulmonary abnormality. 2. There is no radiographic evidence of acute/displaced right-sided rib fracture on the rib series. ACT 112: Negative or not required by law. Electronically signed by: Janusz Casillas M.D. 01/26/2023 10:58 PM
--- NOTE | 2023-01-26 23:54 | History & Physical Report ---
Date of Service January 26, 2023 Assessment & Plan (1) Hyponatremia: Plan: Acute on chronic Possibly from mild hypovolemia given ketonuria Possible right lateral malleolar fracture secondary to fall hx of bladder dysfunction given recurrent falls chronic systolic heart failure, patient on the dry side hx nonobstructive CAD mild aortic stenosis pulmonary hypertension as per records hx PE DVT sp Eliquis FORREST on CPAP hypothyroidism, euthyroid as of today's TSH seizure disorder, stable, patient seizure-free in the last 2 years mood disorder, at baseline Medical telemetry Careful correction of sodium/IV hydration given systolic dysfunction May benefit from Nephrology consultation Orthopedics consult Re: Right ankle fracture PT OT eval once seen by orthopedics DVT prophylaxis. Lovenox subcu Full code Text document was generated using [employer] voice recognition software. It may contain grammatical or spelling errors. Kindly contact undersigned for clarification of any documentation item in question. History of Present Illness Chief Complaint: Fall from toilet, unable to get up Primary Care Provider: Kiki Hay MD History obtained from patient and records. Medical history significant for chronic systolic heart failure (EF 25-30%, TTE 2022), nonobstructive CAD, mild aortic stenosis, pulmonary hypertension, hx PE DVT sp Eliquis, FORREST on CPAP, chronic hyponatremia, hypothyroidism, epilepsy, mood disorder, ambulatory dysfunction. Last confinement September 2022 for right closed fracture secondary to recurrent fall. Hyponatremia noted during confinement attributed to poor fluid/solute intake. Patient fell off the the toilet seat at home. No head trauma. No chest pain, no SOB, no LOC. Achy right hip, right ankle pain with swelling. Patient unable to get up. Patient brought to the ER for evaluation. Medical Historyas above Surgical History : Subcutaneous tumor removal, BTL, lumbar kyphoplasty, tonsillectomy, cataract surgeries Family History : Dementia, colon cancer, COPD Personal/Social history : Non-smoker, no EtOH intake, retired [employer] employee Allergies Allergy/AdvReac Type Severity Reaction Status Date / Time codeine Allergy Intermediate Rash Unverified 01/26/23 20:17 amoxicillin Allergy Rash Verified 01/26/23 20:17 Home Medications Medication Instructions Recorded Confirmed Type acetaminophen 500 mg tablet 1,000 mg PO Q6H PRN Pain 10/31/21 01/26/23 History (Tylenol Extra Strength) divalproex 500 mg tablet,extended 1,000 mg PO HS 10/31/21 01/26/23 History release 24 hr levetiracetam 500 mg tablet 500 mg PO BID 10/31/21 01/26/23 History levothyroxine 75 mcg tablet 75 mcg PO DAILY 10/31/21 01/26/23 History (Euthyrox) oxcarbazepine 150 mg tablet 450 mg PO BID 10/31/21 01/26/23 History gabapentin 300 mg capsule 300 mg PO BID 09/28/22 01/26/23 History cyanocobalamin (vitamin B-12) 1,000 mcg PO DAILY 01/26/23 01/26/23 History 1,000 mcg tablet (Vitamin B-12) glucosamine sulfate 750 mg tablet 750 mg PO DAILY 01/26/23 01/26/23 History Past Med/Surg History Medical History Cancer SKIN CANCER Compression fracture Deep vein thrombosis Hallucination Hallucinations (05/29/11) Hearing deficit Hypothyroidism Hypothyroidism On home oxygen therapy [place] OXYGEN AT NIGHT (UNSURE OF LITER) Peripheral neuropathy Psychosis Pulmonary embolism Seizure LAST EPISODE (THIS YEAR/UNSURE OF DATE) ? SEIZURE TYPE>FOLLOWS WITH DR. PHOENIX. OLD RECORDS NOTE EPILEPSY Seizure disorder Sleep apnea NO DEVICE USED NOW (CPAP USED IN PAST) Witnessed seizure-like activity Surgical History History of adenoidectomy History of bilateral tubal ligation History of colonoscopy History of kyphoplasty History of tonsillectomy History of tooth extraction Family History Mother Family hx of colon cancer Social History Smoking Status: Never smoker Second Hand Exposure: Yes (Family members smoked during childhood); Do You Dip or Chew Tobacco: No; Hx Alcohol Use: No Hx Substance Use: No Preferred Language: [place] Communication Ability: Effective Religion Professor Required: No Beliefs That Will Affect Care: None marital status: Current Living Situation: Spouse and Other Current Living Situation Comment: Lives in independent living with How many Children do You have: 5 Other Information That Helps Us Care for You: No Feels Safe at Home: Yes Safety Concerns: Feels Safe At This Time Assistive Devices: Glasses, Hearing Aid - Bilateral and Walker Review of Systems Review of Systems: As per HPI, all other systems reviewed and negative Physical Exam Physical Exam: GENERAL: Slightly uncomfortable, obese, slightly hard of hearing, no respiratory distress SKIN: Normal color, warm HEENT: [place] palpebral conjunctivae, no ptosis, dry buccal mucosa NECK : Supple, short neck, no tenderness CHEST : CTA, no tenderness HEART : RRR, no obvious murmurs ABDOMEN: Some distention, nontender EXTREMITIES : Minimal LE swelling, right hip, right ankle tenderness NEUROLOGIC : Coherent, no facial asymmetry, gait and stance not assessed Results & Data Results & Data Vital Signs (Past 12 Hours) Vital Signs Temp Pulse Pulse Resp BP BP Pulse Ox 01/26/23 23:13 64 16 141/80 H 97 01/26/23 22:30 71 15 98 01/26/23 22:00 67 18 96 01/26/23 21:30 68 16 01/26/23 20:00 73 16 01/26/23 19:39 72 28 H 96 01/26/23 19:36 36.6 C 77 24 127/73 96 O2 Del Method 01/26/23 23:13 Room Air 01/26/23 22:30 Room Air 01/26/23 22:00 Room Air 01/26/23 21:30 01/26/23 20:00 01/26/23 19:39 01/26/23 19:36 Room Air Laboratory Results Laboratory Results WBC 6.18 K/ul (4.8-10.8) 01/26/23 20:17 RBC 4.39 M/uL (4.20-5.40) 01/26/23 20:17 Hgb 14.4 g/dl (12.0-16.0) 01/26/23 20:17 Hct 40.3 % (37.0-47.0) 01/26/23 20:17 MCV 91.8 fL (80.0-100.0) 01/26/23 20:17 MCH 32.8 pg (25.0-34.0) 01/26/23 20:17 MCHC 35.7 g/dL (32.0-36.0) 01/26/23 20:17 RDW Std Deviation 41.2 fL (36.4-46.3) 01/26/23 20:17 RDW Coeff of Benigno 12.2 % (11.5-14.5) 01/26/23 20:17 Plt Count 207 K/uL (130-400) 01/26/23 20:17 MPV 9.9 fL (9.4-12.4) 01/26/23 20:17 Immature Gran % (Auto) 0.2 % 01/26/23 20:17 Neut % (Auto) 73.6 % 01/26/23 20:17 Lymph % (Auto) 13.3 % 01/26/23 20:17 Yates % (Auto) 10.8 % 01/26/23 20:17 Eos % (Auto) 1.5 % 01/26/23 20:17 Baso % (Auto) 0.6 % 01/26/23 20:17 Neut # (Auto) 4.55 K/uL (1.40-6.50) 01/26/23 20:17 Lymph # (Auto) 0.82 K/uL (1.2-3.4) L 01/26/23 20:17 Yates # (Auto) 0.67 K/uL (0.11-0.59) H 01/26/23 20:17 Eos # (Auto) 0.09 K/uL (0-0.50) 01/26/23 20:17 Baso # (Auto) 0.04 K/uL (0-0.2) 01/26/23 20:17 Immature Gran # (Auto) 0.01 K/uL (0.01-0.20) 01/26/23 20:17 PT 11.3 Seconds (9.0-12.0) 01/26/23 20:17 INR 1.0 (0.9-1.1) 01/26/23 20:17 APTT 24.4 Seconds (21.0-31.0) 01/26/23 20:17 PTT Ratio 0.9 01/26/23 20:17 Sodium 128 mmol/L (136-145) L 01/26/23 20:17 Potassium 4.1 mmol/L (3.5-5.1) 01/26/23 20:17 Chloride 95 mmol/L (98-107) L 01/26/23 20:17 Carbon Dioxide 26 mmol/L (21-32) 01/26/23 20:17 Anion Gap 7 (3-11) 01/26/23 20:17 BUN 7 mg/dl (6-23) 01/26/23 20:17 Creatinine 0.41 mg/dl (0.6-1.2) L 01/26/23 20:17 Est Cr Clr Drug Dosing Not Reportable 01/26/23 20:17 Est GFR ( Amer) 120.5 ml/min 01/26/23 20:17 Est GFR (Non-Af Amer) 103.9 ml/min 01/26/23 20:17 BUN/Creatinine Ratio 17.1 (10-20) 01/26/23 20:17 Glucose 107 mg/dl (70-99(Fasting)) H 01/26/23 20:17 Osmolality 269 mOsm/kg (280-300) L 01/26/23 20:17 Calcium 9.1 mg/dl (8.6-10.3) 01/26/23 20:17 Magnesium 1.7 mg/dl (1.7-2.4) 01/26/23 20:17 Total Bilirubin 0.4 mg/dl (0.2-1.0) 01/26/23 20:17 AST 12 U/L (13-39) L 01/26/23 20:17 ALT 9 U/L (7-52) 01/26/23 20:17 Alkaline Phosphatase 61 U/L (34-104) 01/26/23 20:17 Total Protein 6.9 gm/dl (6.0-8.3) 01/26/23 20:17 Albumin 3.9 gm/dl (3.4-5.0) 01/26/23 20:17 Globulin 3.0 gm/dl (2.5-4.0) 01/26/23 20:17 Albumin/Globulin Ratio 1.3 (0.9-2) 01/26/23 20:17 TSH 1.969 uIu/ml (0.300-4.500) 01/26/23 20:17 Urine Color Yellow 01/26/23 22:16 Urine Appearance Clear (Clear) 01/26/23 22:16 Urine pH 7.0 (4.5-7.5) 01/26/23 22:16 Ur Specific [place] 1.014 (1.000-1.030) 01/26/23 22:16 Urine Protein Trace (Negative) H 01/26/23 22:16 Urine Glucose (UA) Negative (Negative) 01/26/23 22:16 Urine Ketones 1+ (Negative) H 01/26/23 22:16 Urine Blood Negative (Negative) 01/26/23 22:16 Urine Nitrite Negative (Negative) 01/26/23 22:16 Urine Bilirubin Negative (Negative) 01/26/23 22:16 Urine Urobilinogen Negative (Negative) 01/26/23 22:16 Ur Leukocyte Esterase Negative (Negative) 01/26/23 22:16 Urine WBC (Auto) 1-5 /hpf (0-5) 01/26/23 22:16 Urine RBC (Auto) 0-4 /hpf (0-4) 01/26/23 22:16 U Hyaline Cast (Auto) 1-5 /lpf (0-5) 01/26/23 22:16 U Epithel Cells (Auto) >30 /lpf (0-5) H 01/26/23 22:16 Urine Bacteria (Auto) 1+ (Negative) H 01/26/23 22:16 Urine Yeast Not Reportable 01/26/23 22:16 Urine Osmolality 426 mOsm/kg (500-800) L 01/26/23 22:16 Ur Random Sodium 58 mmol/L 01/26/23 22:16 Valproic Acid 72 mcg/ml (50-100) 01/26/23 20:17 SARS-CoV-2, RNA, NAAT NEGATIVE (NEGATIVE) 01/26/23 21:39 Impressions Ankle X-Ray 01/26/23 19:50 RIGHT ANKLE 3 VIEWS CLINICAL HISTORY: Fall. Right ankle injury. FINDINGS: 3 views of the right ankle are obtained. No prior studies are available for comparison at the time of dictation. The skeletal structures are osteopenic. Question a nondisplaced fracture of the lateral malleolus. Soft tissue swelling is present around the ankle. No additional fracture is seen. The ankle mortise is intact. IMPRESSION: 1. Question a nondisplaced lateral malleolar fracture. 2. No additional findings are suspicious for acute fracture. 3. Soft tissue swelling is present around the ankle. Electronically signed by: Janusz Casillas M.D. 01/26/2023 10:42 PM Foot X-Ray 01/26/23 19:50 RIGHT FOOT 3 VIEWS CLINICAL HISTORY: Fall. Right foot injury. FINDINGS: 3 views of the right foot are compared to study dated 09/28/2022. The skeletal structures are osteopenic. No acute fracture is identified. There is chronic posttraumatic deformity of the fifth proximal phalanx. Mild osteoarthritic change is seen throughout the foot. There are dorsal and plantar heel spurs. Degenerative spurring is seen along the dorsal aspect of the tarsal bones. Soft tissue swelling is present around the ankle and along the dorsum of the foot. IMPRESSION: Soft tissue swelling with no fracture identified. Electronically signed by: Janusz Casillas M.D. 01/26/2023 10:47 PM Hip/Pelvis X-Ray 01/26/23 19:50 SINGLE VIEW PELVIS; 2 VIEWS RIGHT HIP CLINICAL HISTORY: Right hip pain. Decreased range of motion. Fall. FINDINGS: AP view of the pelvis with AP and frog-leg views of the right hip are compared to study dated 09/28/2022. The skeletal structures are osteopenic. There is no radiographic evidence of acute fracture involving the hips or bony pelvis. Puin-fb-cuhdxmoa arthritic change and joint space narrowing is seen in the hips. There is degenerative sclerosis in the sacroiliac joints and pubic symphysis. Enthesophytes arise from the anterior superior iliac spines. There is a compression deformity in the lower lumbar spine with evidence of previous vertebroplasty. The overlying soft tissues are within normal limits. Phleboliths are seen in the pelvis. IMPRESSION: No acute bony abnormality is identified. Electronically signed by: Janusz Casillas M.D. 01/26/2023 10:25 PM Knee X-Ray 01/26/23 19:50 RIGHT KNEE 2 VIEWS CLINICAL HISTORY: Fall. Right knee injury. FINDINGS: AP and crosstable lateral views of the right knee are compared to study dated 09/28/2022. The skeletal structures are osteopenic. No fracture is seen. There is sbhv-[id number] tricompartmental degenerative joint space narrowing. There are marginal osteophytes and patellar enthesophytes. There is a small joint effusion. A calcified fabella is incidentally noted. There is bony overgrowth along the anterior tibial tuberosity. Mild prepatellar soft tissue swelling is observed. IMPRESSION: 1. Prepatellar soft tissue swelling with no fracture identified. 2. Osteopenia and degenerative changes above. Electronically signed by: Janusz Casillas M.D. 01/26/2023 10:38 PM Ribs w/Chest X-Ray 01/26/23 19:50 AP CHEST WITH RIGHT SIDED RIB SERIES CLINICAL HISTORY: Fall. Right-sided chest wall pain. FINDINGS: 2 AP supine chest radiographs with 4 additional views from a right sided rib series are compared to study dated 11/09/2022. Correlation is made with chest CT dated 11/12/2020. An electronic device projects over the left chest. The heart is enlarged. The pulmonary vasculature is noncongested. Chronic interstitial thickening is similar to previous. No airspace consolidation or large pleural effusion is identified. No pneumothorax is seen. The skeletal str uctures are osteopenic. There is no radiographic evidence of acute/displaced right-sided rib fracture on rib series. There are numerous lumbar compression fractures with multilevel vertebroplasty. IMPRESSION: 1. Cardiomegaly with no acute cardiopulmonary abnormality. 2. There is no radiographic evidence of acute/displaced right-sided rib fracture on the rib series. ACT 112: Negative or not required by law. Electronically signed by: Janusz Casillas M.D. 01/26/2023 10:[address] 01/26/23 21:21 CT SCAN OF THE RIGHT HIP WITHOUT IV CONTRAST CLINICAL HISTORY: Fall. Right hip injury. COMPARISON STUDY: Radiographs of the right hip dated 01/26/2023. Pelvic CT dated 10/31/2021. TECHNIQUE: CT scan of the right hip is performed from the bony pelvis to the femoral shaft. Images are reviewed in the axial, sagittal, and coronal planes. IV contrast was not administered for this examination. 3-D reformats are created and assessed. A dose lowering technique was utilized adhering to the principles of ALARA. CT DOSE: 968.11 mGy.cm FINDINGS: The skeletal structures are osteopenic. There is no evidence of acute fracture involving the right hip or the visualized right hemipelvis. Mild arthritic change is seen in the right hip. There is no evidence of avascular necrosis of the right femoral head. No lytic or blastic lesion is seen. Sclerotic change is noted in the pubic symphysis. The regional musculature is normal in appearance. The bladder and uterus are normal as visualized. There is no soft tissue hematoma. No right inguinal lymphadenopathy is seen. IMPRESSION: No fracture is identified. ACT 112: Negative or not required by law. Electronically signed by: Janusz Casillas M.D. 01/26/2023 10:29 PM Diagnostic Findings EKG as per my interpretation : Rate 75, NSR, normal axis, no ischemia
[2023-01-26] MEDS ORDERED: MoRPHine SULFATE 4 MG/ML 1 ML CARP\\VIAL IV PRN (23:57)
[2023-01-26] MEDS ORDERED: PROMETHAZINE HCL 12.5 MG in SODIUM CHLORIDE 0.9% 50 ML IV PRN (23:57)
[2023-01-26] MEDS ORDERED: levETIRAcetam 500 MG TAB PO STA (23:57)
[2023-01-27] MEDS: GABAPENTIN 300 MG CAP PO SCH ×3 (01:07→20:17)
[2023-01-27] MEDS: LEVOTHYROXINE SODIUM 75 MCG TABLET PO SCH (05:34)
[2023-01-27 06:36] LABS: Basophils # (auto) 0.04 K/uL (0-0.2); Basophils % (auto) 0.7 %; Eosinophils # (auto) 0.19 K/uL (0-0.50); Eosinophils % (auto) 3.2 %; Hemoglobin 13.5 g/dl (12.0-16.0); Immature Granulocytes # (auto) 0.02 K/uL (0.01-0.20); Immature Granulocytes % (auto) 0.3 %; Lymphocytes # (auto) 1.23 K/uL (1.2-3.4); Mean Corpuscular Hemoglobin 32.2 pg (25.0-34.0); Mean Corpuscular Hgb Conc 35.5 g/dL (32.0-36.0); Mean Corpuscular Volume 90.7 fL (80.0-100.0); Mean Platelet Volume 9.7 fL (9.4-12.4); Monocytes # (auto) 0.81 K/uL (0.11-0.59); Monocytes % (auto) 13.8 %; Neutrophils # (auto) 3.58 K/uL (1.40-6.50); Platelet Count 210 K/uL (130-400); RDW Coefficient of Variation 12.2 % (11.5-14.5); RDW Standard Deviation 40.4 fL (36.4-46.3); Red Blood Count 4.19 M/uL (4.20-5.40); White Blood Count 5.87 K/ul (4.8-10.8)
[2023-01-27 06:49] LABS: BUN Creatinine Ratio 12.8 (10-20); Calcium 9.4 mg/dl (8.6-10.3); Creatinine Clr Calc Pharmacy 128.4 ml/min; Est GFR (African American) 115.2 ml/min; Est GFR (Non-African American) 99.4 ml/min; Potassium 4.1 mmol/L (3.5-5.1)
--- NOTE | 2023-01-27 06:59 | Orthopedic Consultation ---
Imaging reviewed, agreed with below. Non op treatment of distal fibula fx with PWB in CAM boot and outpt follow up. Date of Consultation January 27, 2023 Assessment & Plan (1) Fracture, fibula closed, shaft: Right distal fibular fracture nondisplaced. Likely coupled with a grade 1-2 sprain I will discuss the case with Dr. Swenson. X-rays reviewed by myself. X-rays of the hip and knee showing no fractures. No obvious fractures noted in the right foot. Nondisplaced fracture noted of the distal right fibula. We will have orthotics fit her for a high tide walking boot. She can be partial weightbearing with walker or crutches at this time. Begin PT whenever her boot has been fitted. Patient can follow-up in the office with Dr. Swenson in 2 weeks for a recheck. Thank you for this consult. History of Present Illness Reason for Consultation: Nondisplaced right distal fibular fracture Attending Physician: John Youngblood MD History of Present Illness 72-year-old female admitted by the hospitalist service for ambulation dysfunction and pain in her right lower extremity secondary to mechanical fall at her home. Patient states that she was in the bathroom and ended up losing her balance. As she fell she hit her hip on the toilet and ended up having her right leg twist unnaturally under her body. She had moderate pain mostly in the right ankle and also some knee discomfort as well as hip discomfort. An ambulance was called for and brought her to the emergency room here at [facility]. She denies losing consciousness. She denies having shortness of breath, chest pain, lightheadedness prior to or after the fall. X- rays were taken and was found that she had a nondisplaced fracture of the distal fibula. She was admitted for further care and we have been asked to see her for her fibular fracture. Allergies Allergy/AdvReac Type Severity Reaction Status Date / Time codeine Allergy Intermediate Rash Unverified 01/26/23 20:17 amoxicillin Allergy Rash Verified 01/26/23 20:17 Home Medications Medication Instructions Recorded Confirmed Type acetaminophen 500 mg tablet 1,000 mg PO Q6H PRN Pain 10/31/21 01/26/23 History (Tylenol Extra Strength) divalproex 500 mg tablet,extended 1,000 mg PO HS 10/31/21 01/26/23 History release 24 hr levetiracetam 500 mg tablet 500 mg PO BID 10/31/21 01/26/23 History levothyroxine 75 mcg tablet 75 mcg PO DAILY 10/31/21 01/26/23 History (Euthyrox) oxcarbazepine 150 mg tablet 450 mg PO BID 10/31/21 01/26/23 History gabapentin 300 mg capsule 300 mg PO BID 09/28/22 01/26/23 History cyanocobalamin (vitamin B-12) 1,000 mcg PO DAILY 01/26/23 01/26/23 History 1,000 mcg tablet (Vitamin B-12) glucosamine sulfate 750 mg tablet 750 mg PO DAILY 01/26/23 01/26/23 History Patient History Medical History Cancer SKIN CANCER Compression fracture Deep vein thrombosis Hallucination Hallucinations (05/29/11) Hearing deficit Hypothyroidism Hypothyroidism On home oxygen therapy [place] OXYGEN AT NIGHT (UNSURE OF LITER) Peripheral neuropathy Psychosis Pulmonary embolism Seizure LAST EPISODE (THIS YEAR/UNSURE OF DATE) ? SEIZURE TYPE>FOLLOWS WITH DR. PHOENIX. 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 She is alert and oriented x3. No acute distress. Pleasant cooperative. On examination of her right lower extremity, she has no pain on palpation of the lateral and anterior hip at this time. She has some mild swelling of her right knee and has minimal tenderness at this time on palpation. Her right ankle has noted swelling over the lateral malleolus. She is exquisitely tender over the distal fibula. She is able to take the ankle through gentle range of motion with mild to moderate discomfort in the lateral malleolar area more so with eversion/inversion. I am able to take her through passive range of motion of her right hip and knee without much in the way of discomfort. Dorsalis pedis pulse present and 2/4. No gross motor or sensory loss seen at this time Results & Data Vital Signs (Past 12 Hours) Vital Signs Temp Pulse Pulse Pulse Resp BP BP 01/27/23 03:34 36.4 C L 72 18 01/27/23 00:48 63 01/27/23 00:48 36.6 C 62 18 124/84 01/27/23 00:48 01/27/23 00:00 65 16 137/91 01/26/23 23:13 64 16 141/80 H 01/26/23 22:30 71 15 01/26/23 22:00 67 18 01/26/23 21:30 68 16 01/26/23 20:00 73 16 01/26/23 19:39 72 28 H 01/26/23 19:36 36.6 C 77 24 127/73 BP Pulse Ox Pulse Ox O2 Del Method O2 Del Method 01/27/23 03:34 121/76 97 Room Air 01/27/23 00:48 01/27/23 00:48 97 Room Air 01/27/23 00:48 97 Room Air 01/27/23 00:00 96 Room Air 01/26/23 23:13 97 Room Air 01/26/23 22:30 98 Room Air 01/26/23 22:00 96 Room Air 01/26/23 21:30 01/26/23 20:00 01/26/23 19:39 96 01/26/23 19:36 96 Room Air Laboratory Results Laboratory Results WBC 5.87 K/ul (4.8-10.8) 01/27/23 05:59 RBC 4.19 M/uL (4.20-5.40) L 01/27/23 05:59 Hgb 13.5 g/dl (12.0-16.0) 01/27/23 05:59 Hct 38.0 % (37.0-47.0) 01/27/23 05:59 MCV 90.7 fL (80.0-100.0) 01/27/23 05:59 MCH 32.2 pg (25.0-34.0) 01/27/23 05:59 MCHC 35.5 g/dL (32.0-36.0) 01/27/23 05:59 RDW Std Deviation 40.4 fL (36.4-46.3) 01/27/23 05:59 RDW Coeff of Benigno 12.2 % (11.5-14.5) 01/27/23 05:59 Plt Count 210 K/uL (130-400) 01/27/23 05:59 MPV 9.7 fL (9.4-12.4) 01/27/23 05:59 Immature Gran % (Auto) 0.3 % 01/27/23 05:59 Neut % (Auto) 61.0 % 01/27/23 05:59 Lymph % (Auto) 21.0 % 01/27/23 05:59 [place] % (Auto) 13.8 % 01/27/23 05:59 Eos % (Auto) 3.2 % 01/27/23 05:59 Baso % (Auto) 0.7 % 01/27/23 05:59 Neut # (Auto) 3.58 K/uL (1.40-6.50) 01/27/23 05:59 Lymph # (Auto) 1.23 K/uL (1.2-3.4) 01/27/23 05:59 [place] # (Auto) 0.81 K/uL (0.11-0.59) H 01/27/23 05:59 Eos # (Auto) 0.19 K/uL (0-0.50) 01/27/23 05:59 Baso # (Auto) 0.04 K/uL (0-0.2) 01/27/23 05:59 Immature Gran # (Auto) 0.02 K/uL (0.01-0.20) 01/27/23 05:59 PT 11.3 Seconds (9.0-12.0) 01/26/23 20:17 INR 1.0 (0.9-1.1) 01/26/23 20:17 APTT 24.4 Seconds (21.0-31.0) 01/26/23 20:17 PTT Ratio 0.9 01/26/23 20:17 Sodium 133 mmol/L (136-145) L 01/27/23 05:59 Potassium 4.1 mmol/L (3.5-5.1) 01/27/23 05:59 Chloride 100 mmol/L (98-107) 01/27/23 05:59 Carbon Dioxide 28 mmol/L (21-32) 01/27/23 05:59 Anion Gap 5 (3-11) 01/27/23 05:59 BUN 6 mg/dl (6-23) 01/27/23 05:59 Creatinine 0.47 mg/dl (0.6-1.2) L 01/27/23 05:59 Est Cr Clr Drug Dosing 128.4 ml/min 01/27/23 05:59 Est GFR ( Amer) 115.2 ml/min 01/27/23 05:59 Est GFR (Non-Af Amer) 99.4 ml/min 01/27/23 05:59 BUN/Creatinine Ratio 12.8 (10-20) 01/27/23 05:59 Glucose 91 mg/dl (70-99(Fasting)) 01/27/23 05:59 Osmolality 269 mOsm/kg (280-300) L 01/26/23 20:17 Calcium 9.4 mg/dl (8.6-10.3) 01/27/23 05:59 Magnesium 1.7 mg/dl (1.7-2.4) 01/26/23 20:17 Total Bilirubin 0.4 mg/dl (0.2-1.0) 01/26/23 20:17 AST 12 U/L (13-39) L 01/26/23 20:17 ALT 9 U/L (7-52) 01/26/23 20:17 Alkaline Phosphatase 61 U/L (34-104) 01/26/23 20:17 Total Protein 6.9 gm/dl (6.0-8.3) 01/26/23 20:17 Albumin 3.9 gm/dl (3.4-5.0) 01/26/23 20:17 Globulin 3.0 gm/dl (2.5-4.0) 01/26/23 20:17 Albumin/Globulin Ratio 1.3 (0.9-2) 01/26/23 20:17 TSH 1.969 uIu/ml (0.300-4.500) 01/26/23 20:17 Urine Color Yellow 01/26/23 22:16 Urine Appearance Clear (Clear) 01/26/23 22:16 Urine pH 7.0 (4.5-7.5) 01/26/23 22:16 Ur Specific [place] 1.014 (1.000-1.030) 01/26/23 22:16 Urine Protein Trace (Negative) H 01/26/23 22:16 Urine Glucose (UA) Negative (Negative) 01/26/23 22:16 Urine Ketones 1+ (Negative) H 01/26/23 22:16 Urine Blood Negative (Negative) 01/26/23 22:16 Urine Nitrite Negative (Negative) 01/26/23 22:16 Urine Bilirubin Negative (Negative) 01/26/23 22:16 Urine Urobilinogen Negative (Negative) 01/26/23 22:16 Ur Leukocyte Esterase Negative (Negative) 01/26/23 22:16 Urine WBC (Auto) 1-5 /hpf (0-5) 01/26/23 22:16 Urine RBC (Auto) 0-4 /hpf (0-4) 01/26/23 22:16 U Hyaline Cast (Auto) 1-5 /lpf (0-5) 01/26/23 22:16 U Epithel Cells (Auto) >30 /lpf (0-5) H 01/26/23 22:16 Urine Bacteria (Auto) 1+ (Negative) H 01/26/23 22:16 Urine Yeast Not Reportable 01/26/23 22:16 Urine Osmolality 426 mOsm/kg (500-800) L 01/26/23 22:16 Ur Random Sodium 58 mmol/L 01/26/23 22:16 Valproic Acid 72 mcg/ml (50-100) 01/26/23 20:17 SARS-CoV-2, RNA, NAAT NEGATIVE (NEGATIVE) 01/26/23 21:39 Impressions Ankle X-Ray 01/26/23 19:50 RIGHT ANKLE 3 VIEWS CLINICAL HISTORY: Fall. Right ankle injury. FINDINGS: 3 views of the right ankle are obtained. No prior studies are available for comparison at the time of dictation. The skeletal structures are osteopenic. Question a nondisplaced fracture of the lateral malleolus. Soft tissue swelling is present around the ankle. No additional fracture is seen. The ankle mortise is intact. IMPRESSION: 1. Question a nondisplaced lateral malleolar fracture. 2. No additional findings are suspicious for acute fracture. 3. Soft tissue swelling is present around the ankle. Electronically signed by: Janusz Casillas M.D. 01/26/2023 10:42 PM Foot X-Ray 01/26/23 19:50 RIGHT FOOT 3 VIEWS CLINICAL HISTORY: Fall. Right foot injury. FINDINGS: 3 views of the right foot are compared to study dated 09/28/2022. The skeletal structures are osteopenic. No acute fracture is identified. There is chronic posttraumatic deformity of the fifth proximal phalanx. Mild osteoarthritic change is seen throughout the foot. There are dorsal and plantar heel spurs. Degenerative spurring is seen along the dorsal aspect of the tarsal bones. Soft tissue swelling is present around the ankle and along the dorsum of the foot. IMPRESSION: Soft tissue swelling with no fracture identified. Electronically signed by: Janusz Casillas M.D. 01/26/2023 10:47 PM Hip/Pelvis X-Ray 01/26/23 19:50 SINGLE VIEW PELVIS; 2 VIEWS RIGHT HIP CLINICAL HISTORY: Right hip pain. Decreased range of motion. Fall. FINDINGS: AP view of the pelvis with AP and frog-leg views of the right hip are compared to study dated 09/28/2022. The skeletal structures are osteopenic. There is no radiographic evidence of acute fracture involving the hips or bony pelvis. [id number] arthritic change and joint space narrowing is seen in the hips. There is degenerative sclerosis in the sacroiliac joints and pubic symphysis. Enthesophytes arise from the anterior superior iliac spines. There is a compression deformity in the lower lumbar spine with evidence of previous vertebroplasty. The overlying soft tissues are within normal limits. Phleboliths are seen in the pelvis. IMPRESSION: No acute bony abnormality is identified. Electronically signed by: Janusz Casillas M.D. 01/26/2023 10:25 PM Knee X-Ray 01/26/23 19:50 RIGHT KNEE 2 VIEWS CLINICAL HISTORY: Fall. Right knee injury. FINDINGS: AP and crosstable lateral views of the right knee are compared to study dated 09/28/2022. The skeletal structures are osteopenic. No fracture is seen. There is [id number] tricompartmental degenerative joint space narrowing. There are marginal osteophytes and patellar enthesophytes. There is a small joint effusion. A calcified fabella is incidentally noted. There is bony overgrowth along the anterior tibial tuberosity. Mild prepatellar soft tissue swelling is observed. IMPRESSION: 1. Prepatellar soft tissue swelling with no fracture identified. 2. Osteopenia and degenerative changes above. Electronically signed by: Janusz Casillas M.D. 01/26/2023 10:38 PM Ribs w/Chest X-Ray 01/26/23 19:50 AP CHEST WITH RIGHT SIDED RIB SERIES CLINICAL HISTORY: Fall. Right-sided chest wall pain. FINDINGS: 2 AP supine chest radiographs with 4 additional views from a right sided rib series are compared to study dated 11/09/2022. Correlation is made with chest CT dated 11/12/2020. An electronic device projects over the left chest. The heart is enlarged. The pulmonary vasculature is noncongested. Chronic interstitial thickening is similar to previous. No airspace consolidation or large pleural effusion is identified. No pneumothorax is seen. The skeletal structures are osteopenic. There is no radiographic evidence of acute/displaced right-sided rib fracture on rib series. There are numerous lumbar compression fractures with multilevel vertebroplasty. IMPRESSION: 1. Cardiomegaly with no acute cardiopulmonary abnormality. 2. There is no radiographic evidence of acute/displaced right-sided rib fracture on the rib series. ACT 112: Negative or not required by law. Electronically signed by: Janusz Casillas M.D. 01/26/2023 10:[address] 01/26/23 21:21 CT SCAN OF THE RIGHT HIP WITHOUT IV CONTRAST CLINICAL HISTORY: Fall. Right hip injury. COMPARISON STUDY: Radiographs of the right hip dated 01/26/2023. Pelvic CT dated 10/31/2021. TECHNIQUE: CT scan of the right hip is performed from the bony pelvis to the femoral shaft. Images are reviewed in the axial, sagittal, and coronal planes. IV contrast was not administered for this examination. 3-D reformats are created and assessed. A dose lowering technique was utilized adhering to the principles of ALARA. CT DOSE: 968.11 mGy.cm FINDINGS: The skeletal structures are osteopenic. There is no evidence of acute fracture involving the right hip or the visualized right hemipelvis. Mild arthritic change is seen in the right hip. There is no evidence of avascular necrosis of the right femoral head. No lytic or blastic lesion is seen. Sclerotic change is noted in the pubic symphysis. The regional musculature is normal in appearance. The bladder and uterus are normal as visualized. There is no soft tissue hematoma. No right inguinal lymphadenopathy is seen. IMPRESSION: No fracture is identified. ACT 112: Negative or not required by law. Electronically signed by: Janusz Casillas M.D. 01/26/2023 10:29 PM
[2023-01-27] MEDS: CYANOCOBALAMIN (B-12) 500 MCG TABLET PO SCH (08:06)
[2023-01-27] MEDS: ENOXAPARIN INJ 40 MG/0.4 ML SYR SQ SCH (08:07)
[2023-01-27] MEDS: OXcarbazepine 150 MG TABLET PO SCH ×2 (08:08→20:16)
[2023-01-27] MEDS: levETIRAcetam 500 MG TAB PO SCH ×2 (08:08→20:18)
[2023-01-27] MEDS: GLUCOSAMINE SULFATE 500 MG CAP PO SCH (08:09)
[2023-01-27] MEDS: NYSTATIN CR 15 GM TUBE EXT SCH ×2 (10:46→20:17)
--- NOTE | 2023-01-27 13:20 | Electrocardiogram Report ---
Test Reason : Blood Pressure : / mmHG Vent. Rate : 073 BPM Atrial Rate : 073 BPM P-R Int : 200 ms QRS Dur : 088 ms QT Int : 394 ms P-R-T Axes : 020 005 050 degrees QTc Int : 434 ms Normal sinus rhythm Normal ECG When compared with ECG of 09-NOV-2022 08:06, Nonspecific T wave abnormality no longer evident in Lateral leads Confirmed by Yehuda Beebe ([id number]) on 01/27/2023 1:20:03 PM Referred By: REFERRED SELF Confirmed By:Yehuda Beebe
--- NOTE | 2023-01-27 16:01 | Hospitalist Progress Note ---
Date of Service January 27, 2023 Assessment & Plan (1) Hyponatremia: Plan: Acute on chronic hyponatremia Likely secondary to Trileptal Sodium levels improved to 133 Normal TSH Monitor sodium levels Right distal fibular fracture nondisplaced Secondary to fall -Right ankle x-ray:Question a nondisplaced lateral malleolar fracture. No additional findings are suspicious for acute fracture. Soft tissue swelling is present around the ankle. Continue high tide walking boot Appreciate orthopedics input Needs follow-up with Dr. Swenson in 2 weeks for a recheck PT OT prior to discharge Abnormal urinalysis Rule out UTI Asymptomatic Urine culture pending No antibiotics for now Chronic systolic heart failure H/O Nonobstructive CAD Mild aortic stenosis pulmonary hypertension as per records Continue home medications Hypothyroidism Normal TSH Continue levothyroxine H/OPE DVT S/P Eliquis FORREST on CPAP Seizure disorder Patient seizure-free in the last 2 years Mood disorder Continue home medications DVT Px: Lovenox SQ CODE STATUS Full code Disposition PT OT prior to discharge Admission and Anticipated Discharge Date Admission Date: January 26, 2023 Subjective Patient is seen and examined at bedside Reports right ankle swelling associated with pain Reports nausea earlier which later resolved Denies any chest pain, dyspnea, dizziness, abdominal pain No other complaints Review of Systems Review of Systems: All systems reviewed & are unremarkable except as noted in Subjective Physical Exam Physical Exam: Physical Exam: Vitals signs as noted above General Appearance:Obese, no apparent distress Head: normocephalic, Atraumatic Eyes: normal inspection, EOMI Neck: supple, Trachea midline Respiratory/Chest: Normal breath sounds, CTA, No accessory muscle use Cardiovascular: S1, S2, No murmur Abdomen/GI:Soft, Non tender, Bowel sounds present Extremities/Musculoskeletal:normal inspection, no edema, R ankle swelling, tend er, ecchymosis Neurologic/Psych:AAOX3, grossly no focal neurological deficits Skin: normal color, warm Results & Data Results & Data Vital Signs (Past 12 Hours) Vital Signs Temp Pulse Pulse Resp BP Pulse Ox O2 Del Method 01/27/23 14:12 70 01/27/23 15:26 36.7 C 73 18 108/70 92 Room Air 01/27/23 11:42 36.7 C 67 18 107/73 97 Room Air 01/27/23 08:56 Room Air 01/27/23 07:29 36.6 C 69 18 118/76 95 Room Air 01/27/23 06:00 71 Laboratory Results Short CBC 01/26/23 01/27/23 Range/Units 20:17 05:59 WBC 6.18 5.87 (4.8-10.8) K/ul Hgb 14.4 13.5 (12.0-16.0) g/dl Hct 40.3 38.0 (37.0-47.0) % Plt Count 207 210 (130-400) K/uL BMP 01/26/23 01/27/23 01/27/23 20:17 00:08 05:59 Sodium 128 L 128 L 133 L Potassium 4.1 4.1 Chloride 95 L 100 Carbon Dioxide 26 28 BUN 7 6 Creatinine 0.41 L 0.47 L Glucose 107 H 91 Calcium 9.1 9.4 01/27/23 09:34 Sodium 133 L Potassium Chloride Carbon Dioxide BUN Creatinine Glucose Calcium Liver Function 01/26/23 Range/Units 20:17 Total Bilirubin 0.4 (0.2-1.0) mg/dl AST 12 L (13-39) U/L ALT 9 (7-52) U/L Alkaline Phosphatase 61 (34-104) U/L Albumin 3.9 (3.4-5.0) gm/dl Urine 01/26/23 Range/Units 22:16 Urine Color Yellow Urine Appearance Clear (Clear) Urine pH 7.0 (4.5-7.5) Ur Specific [place] 1.014 (1.000-1.030) Urine Protein Trace H (Negative) Urine Glucose (UA) Negative (Negative)
[2023-01-27] MEDS: DIVALPROEX EXTENDED RELEASE 500 MG TAB PO SCH (20:19)
[2023-01-27] MEDS: oxyCODONE HCL IR 5 MG TAB (IMMEDIATE RELEASE) PO PRN (21:33)
[2023-01-28] MEDS: LEVOTHYROXINE SODIUM 75 MCG TABLET PO SCH (05:52)
[2023-01-28] MEDS: ENOXAPARIN INJ 40 MG/0.4 ML SYR SQ SCH (08:31)
[2023-01-28] MEDS: levETIRAcetam 500 MG TAB PO SCH ×2 (08:32→19:57)
[2023-01-28] MEDS: CYANOCOBALAMIN (B-12) 500 MCG TABLET PO SCH (08:32)
[2023-01-28] MEDS: GABAPENTIN 300 MG CAP PO SCH ×2 (08:32→19:57)
[2023-01-28] MEDS: NYSTATIN CR 15 GM TUBE EXT SCH ×2 (08:32→19:56)
[2023-01-28] MEDS: OXcarbazepine 150 MG TABLET PO SCH ×2 (08:32→19:56)
[2023-01-28] MEDS: GLUCOSAMINE SULFATE 500 MG CAP PO SCH (08:32)
[2023-01-28 09:21] LABS: Calcium 9.3 mg/dl (8.6-10.3); Creatinine Clr Calc Pharmacy 117.7 ml/min; Est GFR (African American) 112.9 ml/min; Est GFR (Non-African American) 97.4 ml/min; Potassium 3.9 mmol/L (3.5-5.1)
[2023-01-28] MEDS: oxyCODONE HCL IR 5 MG TAB (IMMEDIATE RELEASE) PO PRN (10:21)
--- NOTE | 2023-01-28 17:22 | Hospitalist Progress Note ---
Date of Service January 28, 2023 Assessment & Plan (1) Hyponatremia: Plan: Acute on chronic hyponatremia Likely secondary to Trileptal Sodium levels improved to 133 Normal TSH Monitor sodium levels Right distal fibular fracture nondisplaced Secondary to fall -Right ankle x-ray:Question a nondisplaced lateral malleolar fracture. No additional findings are suspicious for acute fracture. Soft tissue swelling is present around the ankle. Continue high tide walking boot Appreciate orthopedics input Needs follow-up with Dr. Swenson in 2 weeks for a recheck PT OT: Recommends rehab Case management to help with discharge planning Abnormal urinalysis UTI ruled out Asymptomatic Urine culture probable skin yusuf Chronic systolic heart failure H/O Nonobstructive CAD Mild aortic stenosis pulmonary hypertension as per records Continue home medications Hypothyroidism Normal TSH Continue levothyroxine H/OPE DVT S/P Eliquis FORREST on CPAP Seizure disorder Patient seizure-free in the last 2 years Mood disorder Continue home medications DVT Px: Lovenox SQ CODE STATUS Full code Disposition Rehab when accepted Admission and Anticipated Discharge Date Admission Date: January 26, 2023 Subjective Patient is seen and examined at bedside No new complaints Minimal ankle pain Denies any chest pain, dyspnea, dizziness, abdominal pain Plan to discharge to rehab facility when accepted Review of Systems Review of Systems: All systems reviewed & are unremarkable except as noted in Subjective Physical Exam Physical Exam: Physical Exam: Vitals signs as noted above General Appearance:Obese, no apparent distress Head: normocephalic, Atraumatic Eyes: normal inspection, EOMI Neck: supple, Trachea midline Respiratory/Chest: Normal breath sounds, CTA, No accessory muscle use Cardiovascular: S1, S2, No murmur Abdomen/GI:Soft, Non tender, Bowel sounds present Extremities/Musculoskeletal:normal inspection, no edema, R ankle swelling, tender, ecchymosis Neurologic/Psych:AAOX3, grossly no focal neurological deficits Skin: normal color, warm Results & Data Results & Data Vital Signs (Past 12 Hours) Vital Signs Temp Pulse Pulse Resp BP Pulse Ox O2 Del Method 01/28/23 16:47 37.2 C 74 17 97/66 L 93 Room Air 01/28/23 15:43 73 01/28/23 12:07 36.5 C 70 18 109/75 97 Room Air 01/28/23 08:13 36.7 C 64 18 112/73 95 Room Air 01/28/23 07:34 67 Laboratory Results BMP 01/28/23 07:29 Sodium 131 L Potassium 3.9 Chloride 97 L Carbon Dioxide 28 BUN 11 Creatinine 0.50 L Glucose 88 Calcium 9.3
[2023-01-28] MEDS: DIVALPROEX EXTENDED RELEASE 500 MG TAB PO SCH (19:58)
[2023-01-29] MEDS: LEVOTHYROXINE SODIUM 75 MCG TABLET PO SCH (05:34)
[2023-01-29 06:38] LABS: Hematocrit (blood only) 36.6 % (37.0-47.0); Mean Corpuscular Hemoglobin 32.3 pg (25.0-34.0); Mean Corpuscular Hgb Conc 35.5 g/dL (32.0-36.0); Mean Platelet Volume 9.8 fL (9.4-12.4); Platelet Count 234 K/uL (130-400); RDW Coefficient of Variation 12.2 % (11.5-14.5); RDW Standard Deviation 40.9 fL (36.4-46.3); Red Blood Count 4.02 M/uL (4.20-5.40); White Blood Count 5.39 K/ul (4.8-10.8)
[2023-01-29 06:56] LABS: BUN Creatinine Ratio 23.5 (10-20); Creatinine Clr Calc Pharmacy 117.1 ml/min; Est GFR (African American) 112.1 ml/min; Est GFR (Non-African American) 96.7 ml/min; Potassium 3.7 mmol/L (3.5-5.1)
[2023-01-29] MEDS: GABAPENTIN 300 MG CAP PO SCH ×2 (08:49→20:42)
[2023-01-29] MEDS: OXcarbazepine 150 MG TABLET PO SCH ×2 (08:49→20:41)
[2023-01-29] MEDS: CYANOCOBALAMIN (B-12) 500 MCG TABLET PO SCH (08:50)
[2023-01-29] MEDS: ENOXAPARIN INJ 40 MG/0.4 ML SYR SQ SCH (08:50)
[2023-01-29] MEDS: NYSTATIN CR 15 GM TUBE EXT SCH ×2 (08:50→20:47)
[2023-01-29] MEDS: GLUCOSAMINE SULFATE 500 MG CAP PO SCH (08:50)
[2023-01-29] MEDS: levETIRAcetam 500 MG TAB PO SCH ×2 (09:33→20:41)
--- NOTE | 2023-01-29 15:23 | Hospitalist Progress Note ---
Date of Service January 29, 2023 Assessment & Plan (1) Hyponatremia: Plan: Acute on chronic hyponatremia Likely secondary to Trileptal Sodium levels 131 today Normal TSH Monitor sodium levels Right distal fibular fracture nondisplaced Secondary to fall -Right ankle x-ray:Question a nondisplaced lateral malleolar fracture. No additional findings are suspicious for acute fracture. Soft tissue swelling is present around the ankle. Continue high tide walking boot Appreciate orthopedics input Needs follow-up with Dr. Swenson in 2 weeks for a recheck PT OT: Recommends rehab Case management to help with discharge planning Rehab when accepted Abnormal urinalysis UTI ruled out Asymptomatic Urine culture probable skin yusuf Chronic systolic heart failure H/O Nonobstructive CAD Mild aortic stenosis pulmonary hypertension as per records Continue home medications Hypothyroidism Normal TSH Continue levothyroxine H/OPE DVT S/P Eliquis FORREST on CPAP Seizure disorder Patient seizure-free in the last 2 years Mood disorder Continue home medications DVT Px: Lovenox SQ CODE STATUS Full code Disposition Rehab Admission and Anticipated Discharge Date Admission Date: January 26, 2023 Subjective Patient is seen and examined at bedside States feeling tired No other complaints No significant ankle pain Denies any chest pain, dyspnea, dizziness, abdominal pain Review of Systems Review of Systems: All systems reviewed & are unremarkable except as noted in Subjective Physical Exam Physical Exam: Physical Exam: Vitals signs as noted above General Appearance:Obese, no apparent distress Head: normocephalic, Atraumatic Eyes: normal inspection, EOMI Neck: supple, Trachea midline Respiratory/Chest: Normal breath sounds, CTA, No accessory muscle use Cardiovascular: S1, S2, No murmur Abdomen/GI:Soft, Non tender, Bowel sounds present Extremities/Musculoskeletal:normal inspection, no edema, R ankle swelling, tender, ecchymosis Neurologic/Psych:AAOX3, grossly no focal neurological deficits Skin: normal color, warm Results & Data Results & Data Vital Signs (Past 12 Hours) Vital Signs Temp Pulse Resp BP Pulse Ox O2 Del Method 01/29/23 15:12 36.8 C 75 18 113/76 94 Room Air 01/29/23 11:42 36.5 C 70 18 110/74 96 Room Air 01/29/23 07:42 36.6 C 68 18 110/74 95 Room Air Laboratory Results Short CBC 01/29/23 Range/Units 05:59 WBC 5.39 (4.8-10.8) K/ul Hgb 13.0 (12.0-16.0) g/dl Hct 36.6 L (37.0-47.0) % Plt Count 234 (130-400) K/uL [facility] 01/29/23 05:59 Sodium 131 L Potassium 3.7 Chloride 97 L Carbon Dioxide 28 BUN 12 Creatinine 0.51 L Glucose 91 Calcium 9.0
[2023-01-29] MEDS: oxyCODONE HCL IR 5 MG TAB (IMMEDIATE RELEASE) PO PRN (20:41)
[2023-01-29] MEDS: DIVALPROEX EXTENDED RELEASE 500 MG TAB PO SCH (20:42)
[2023-01-30] MEDS: LEVOTHYROXINE SODIUM 75 MCG TABLET PO SCH (06:10)
[2023-01-30 08:19] LABS: Est GFR (African American) 115.2 ml/min; Est GFR (Non-African American) 99.4 ml/min
[2023-01-30] MEDS: CYANOCOBALAMIN (B-12) 500 MCG TABLET PO SCH (09:29)
[2023-01-30] MEDS: ENOXAPARIN INJ 40 MG/0.4 ML SYR SQ SCH (09:29)
[2023-01-30] MEDS: levETIRAcetam 500 MG TAB PO SCH ×2 (09:29→20:54)
[2023-01-30] MEDS: OXcarbazepine 150 MG TABLET PO SCH ×2 (09:29→20:55)
[2023-01-30] MEDS: GABAPENTIN 300 MG CAP PO SCH ×2 (09:29→20:54)
[2023-01-30] MEDS: NYSTATIN CR 15 GM TUBE EXT SCH ×2 (09:30→20:55)
[2023-01-30] MEDS: GLUCOSAMINE SULFATE 500 MG CAP PO SCH ×2 (10:44→12:47)
--- NOTE | 2023-01-30 15:32 | Hospitalist Progress Note ---
Date of Service January 30, 2023 Assessment & Plan (1) Hyponatremia: Plan: Right distal fibular fracture nondisplaced Secondary to fall -Right ankle x-ray:Question a nondisplaced lateral malleolar fracture. No additional findings are suspicious for acute fracture. Soft tissue swelling is present around the ankle. Continue high tide walking boot Appreciate orthopedics input Needs follow-up with Dr. Swenson in 2 weeks for a recheck PT OT: Recommends rehab Stable for discharge, waiting for rehab placement Acute on chronic hyponatremia Likely secondary to Trileptal Sodium levels 131 Normal TSH Monitor sodium levels Abnormal urinalysis UTI ruled out Asymptomatic Urine culture probable skin yusuf Chronic systolic heart failure H/O Nonobstructive CAD Mild aortic stenosis pulmonary hypertension as per records Continue home medications Hypothyroidism Normal TSH Continue levothyroxine H/OPE DVT S/P Eliquis FORREST on CPAP Seizure disorder Patient seizure-free in the last 2 years Mood disorder Continue home medications DVT Px: Lovenox SQ CODE STATUS Full code Disposition Rehab when bed available Admission and Anticipated Discharge Date Admission Date: January 26, 2023 Subjective Patient is seen and examined at bedside No significant change from yesterday Waiting for rehab placement Ankle pain is controlled Denies any chest pain, dyspnea, dizziness, abdominal pain Review of Systems Review of Systems: All systems reviewed & are unremarkable except as noted in Subjective Physical Exam Physical Exam: Physical Exam: Vitals signs as noted above General Appearance:Obese, no apparent distress Head: normocephalic, Atraumatic Eyes: normal inspection, EOMI Neck: supple, Trachea midline Respiratory/Chest: Normal breath sounds, CTA, No accessory muscle use Cardiovascular: S1, S2, No murmur Abdomen/GI:Soft, Non tender, Bowel sounds present Extremities/Musculoskeletal:normal inspection, no edema, R ankle swelling, tender, ecchymosis Neurologic/Psych:AAOX3, grossly no focal neurological deficits Skin: normal color, warm Results & Data Results & Data Vital Signs (Past 12 Hours) Vital Signs Temp Pulse Pulse Resp BP BP Pulse Ox 01/30/23 15:28 71 01/30/23 15:27 37.2 C 72 20 115/77 95 01/30/23 11:09 36.4 C L 73 18 102/68 98 01/30/23 08:10 01/30/23 07:19 36.6 C 72 18 111/73 94 01/30/23 07:22 80 O2 Del Method 01/30/23 15:28 01/30/23 15:27 Room Air 01/30/23 11:09 Room Air 01/30/23 08:10 Room Air 01/30/23 07:19 Room Air 01/30/23 07:22 Laboratory Results [facility] 01/30/23 06:18 Creatinine 0.47 L
[2023-01-30] MEDS: DIVALPROEX EXTENDED RELEASE 500 MG TAB PO SCH (20:54)
[2023-01-31] MEDS: LEVOTHYROXINE SODIUM 75 MCG TABLET PO SCH (06:08)
[2023-01-31 06:43] LABS: BUN Creatinine Ratio 22.6 (10-20); Creatinine Clr Calc Pharmacy 96.3 ml/min; Est GFR (African American) 105.1 ml/min; Est GFR (Non-African American) 90.7 ml/min
--- NOTE | 2023-01-31 07:47 | Hospitalist Progress Note ---
Date of Service January 31, 2023 Assessment & Plan (1) Closed fibular fracture: (2) Ankle sprain: (3) Hyponatremia: Plan Right distal fibular fracture nondisplaced Secondary to fall -Right ankle x-ray:Question a nondisplaced lateral malleolar fracture. No additional findings are suspicious for acute fracture. Soft tissue swelling is present around the ankle. Continue high tide walking boot Needs follow-up with Dr. Swenson in 2 weeks for a recheck PT OT: Recommends rehab Stable for discharge, waiting for rehab placement to [facility] Acute on chronic hyponatremia Likely secondary to Trileptal Sodium levels improved prior to discharge. Cont to monitor as outpatient Abnormal urinalysis UTI ruled out Asymptomatic Urine culture probable skin yusuf Chronic systolic heart failure, compensated. H/O Nonobstructive CAD Mild aortic stenosis pulmonary hypertension as per records Continue home medications Hypothyroidism Normal TSH Continue levothyroxine H/O PE DVT S/P Eliquis FORREST on CPAP Seizure disorder Patient seizure-free in the last 2 years Mood disorder Continue home medications DVT Px: Lovenox SQ CODE STATUS Full code Disposition [facility] when bed available [facility] Admission and Anticipated Discharge Date Admission Date: January 26, 2023 Subjective 72 yo F presented with a fall and subsequent fracture of right ankle Feeling well pain in ankle controlled and she is able to bear weight with cam boot in place eating well sodium has improved. Review of Systems Review of Systems: All systems were reviewed and negative except as indicated on subjective above. Physical Exam Physical Exam: CONSTITUTIONAL: WNWD, vitals as above, generally well-appearing, NAD EYES: normal conjunctivae, no scleral icterus ENT: external ear and nose normal, oropharynx clear, no TM abnormality, no maxillary or ethmoid sinus tenderness NECK: trachea midline, no lymphadenopathy, normal thyroid RESPIRATORY: clear to auscultation bilaterally, no crackles, rales or wheezes, normal respiratory effort CARDIOVASCULAR: regular rate and rhythm, S1 and 2 heard without murmurs, gallops or rubs, no JVD, no peripheral edema, no carotid bruits CHEST: inspection of chest was normal (+pacemaker, +port) GASTROINTESTINAL: normal bowel sounds, soft, nontender, no hepatomegaly, no guarding MUSCULOSKELETAL: strength 5/5 throughout, head is normocephalic and atraumatic, neck supple, normal palpation of chest wall without tenderness SKIN: warm and dry, no rashes NEUROLOGIC: patellar DTRs 2+ bilat. PERRL, EOMI, no facial palsy, no dysarthria. Touch, pain and proprioception normal. CN 2-12 grossly intact, no sensory deficit, normal cognition, normal speech, no tremor PSYCHIATRIC: alert cooperative and oriented to person, place and time. Euthymic mood, makes good eye contact, language grossly intact, recent and remote memory grossly intact. LYMPHATIC: no LAD Results & Data Results & Data Vital Signs (Past 12 Hours) Vital Signs Temp Pulse Resp BP Pulse Ox O2 Del Method 01/30/23 22:00 36.8 C 74 18 117/74 94 Room Air 01/30/23 22:40 Room Air Laboratory Results [facility] 01/30/23 01/31/23 06:18 05:56 Sodium 133 L Potassium 4.0 Chloride 99 Carbon Dioxide 28 BUN 14 Creatinine 0.47 L 0.62 Glucose 88 Calcium 9.0 Medications Administered Current Inpatient Medications Cyanocobalamin (Cyanocobalamin (B-12) 500 Mcg Tablet) 1,000 mcg PO DAILY SACHA Stop: 02/26/23 08:59 Last Admin: 01/30/23 09:29 Dose: 1,000 mcg Divalproex Sodium (Divalproex Extended Release 500 Mg Tab) 1,000 mg PO HS SACHA Stop: 02/26/23 20:59 Last Admin: 01/30/23 20:54 Dose: 1,000 mg Enoxaparin Sodium (Enoxaparin Inj 40 Mg/0.4 Ml Syr) 40 mg SQ QAM SACHA Stop: 02/26/23 08:59 Last Admin: 01/30/23 09:29 Dose: 40 mg Gabapentin (Gabapentin 300 Mg Cap) 300 mg PO BID SACHA Stop: 02/26/23 00:47 Last Admin: 01/30/23 20:54 Dose: 300 mg Glucosamine Sulfate (Glucosamine Sulfate 500 Mg Cap) 500 mg PO DAILY SACHA Stop: 02/26/23 08:59 Last Admin: 01/30/23 12:47 Dose: 500 mg Promethazine HCl 12.5 mg/ (Sodium Chloride) 50.5 mls @ 202 mls/hr IV Q6H PRN PRN Reason: Nausea And Vomiting Stop: 02/25/23 23:56 Levetiracetam (Levetiracetam 500 Mg Tab) 500 mg PO BID SACHA Stop: 02/26/23 08:59 Last Admin: 01/30/23 20:54 Dose: 500 mg Levothyroxine Sodium (Levothyroxine Sodium 75 Mcg Tablet) 75 mcg PO DAILYBB SACHA Stop: 02/26/23 06:29 Last Admin: 01/31/23 06:08 Dose: 75 mcg Morphine Sulfate (Morphine Sulfate 4 Mg/Ml 1 Ml Carp\Vial) 4 mg IV Q4H PRN PRN Reason: Pain Stop: 02/09/23 23:56 Nystatin (Nystatin Cr 15 Gm Tube) 1 appln EXT BID SACHA Stop: 02/26/23 09:29 Last Admin: 01/30/23 20:55 Dose: 1 appln Oxcarbazepine (Oxcarbazepine 150 Mg Tablet) 450 mg PO BID [facility] Stop: 02/26/23 08:59 Last Admin: 01/30/23 20:55 Dose: 450 mg Oxycodone HCl (Oxycodone Hcl Ir 5 Mg Tab (Immediate Release)) 5 - 10 mg PO QID PRN PRN Reason: Pain Stop: 02/09/23 23:56 Last Admin: 01/29/23 20:41 Dose: 5 mg (1) Closed fibular fracture Encounter type: initial encounter Fibula location: lateral malleolus Fracture alignment: nondisplaced Laterality: right Qualified Code(s): S82.64XA - Nondisplaced fracture of lateral malleolus of right fibula, initial encounter for closed fracture (2) Ankle sprain Encounter type: initial encounter Involved ligament of ankle: unspecified ligament Laterality: right Qualified Code(s): S93.401A - Sprain of unspecified ligament of right ankle, initial encounter
[2023-01-31] MEDS: CYANOCOBALAMIN (B-12) 500 MCG TABLET PO SCH (09:08)
[2023-01-31] MEDS: OXcarbazepine 150 MG TABLET PO SCH ×2 (09:08→20:06)
[2023-01-31] MEDS: GABAPENTIN 300 MG CAP PO SCH ×2 (09:08→20:06)
[2023-01-31] MEDS: GLUCOSAMINE SULFATE 500 MG CAP PO SCH (09:08)
[2023-01-31] MEDS: NYSTATIN CR 15 GM TUBE EXT SCH ×2 (09:08→20:06)
[2023-01-31] MEDS: levETIRAcetam 500 MG TAB PO SCH ×2 (09:08→20:06)
[2023-01-31] MEDS: ENOXAPARIN INJ 40 MG/0.4 ML SYR SQ SCH (09:08)
[2023-01-31] MEDS ORDERED: oxyCODONE HCL IR 5 MG TAB (IMMEDIATE RELEASE) PO PRN (20:06)
[2023-01-31] MEDS: DIVALPROEX EXTENDED RELEASE 500 MG TAB PO SCH (20:07)
[2023-01-31] MEDS: ACETAMINOPHEN 325 MG TAB PO PRN (21:59)
[2023-02-01] MEDS: LEVOTHYROXINE SODIUM 75 MCG TABLET PO SCH (05:33)
[2023-02-01] MEDS: OXcarbazepine 150 MG TABLET PO SCH (09:22)
[2023-02-01] MEDS: CYANOCOBALAMIN (B-12) 500 MCG TABLET PO SCH (09:22)
[2023-02-01] MEDS: ENOXAPARIN INJ 40 MG/0.4 ML SYR SQ SCH (09:22)
[2023-02-01] MEDS: GABAPENTIN 300 MG CAP PO SCH (09:23)
[2023-02-01] MEDS: GLUCOSAMINE SULFATE 500 MG CAP PO SCH (09:23)
[2023-02-01] MEDS: NYSTATIN CR 15 GM TUBE EXT SCH (09:23)
[2023-02-01] MEDS: levETIRAcetam 500 MG TAB PO SCH (09:23)
[2023-02-01] MEDS: ACETAMINOPHEN 325 MG TAB PO PRN (14:19)
--- NOTE | 2023-02-01 14:38 | Discharge Summary ---
Discharge Summary Date of Service February 01, 2023 Admission HPI Per Admitting Provider History obtained from patient and records. Medical history significant for chronic systolic heart failure (EF 25-30%, TTE 2022), nonobstructive CAD, mild aortic stenosis, pulmonary hypertension, hx PE DVT sp Eliquis, FORREST on CPAP, chronic hyponatremia, hypothyroidism, epilepsy, mood disorder, ambulatory dysfunction. Last confinement September 2022 for right closed fracture secondary to recurrent fall. Hyponatremia noted during confinement attributed to poor fluid/solute intake. Patient fell off the the toilet seat at home. No head trauma. No chest pain, no SOB, no LOC. Achy right hip, right ankle pain with swelling. Patient unable to get up. Patient brought to the ER for evaluation. Medical Historyas above Surgical History : Subcutaneous tumor removal, BTL, lumbar kyphoplasty, tonsillectomy, cataract surgeries Family History : Dementia, colon cancer, COPD Personal/Social history : Non-smoker, no EtOH intake, retired [employer] employee Principal Dx & Hospital Course #1 = Principal Diagnosis (1) Closed fibular fracture: (2) Ankle sprain: (3) Hyponatremia: Plan Right distal fibular fracture nondisplaced Secondary to fall -Right ankle x-ray:Question a nondisplaced lateral malleolar fracture. No additional findings are suspicious for acute fracture. Soft tissue swelling is present around the ankle. Continue high tide walking boot Needs follow-up with Dr. Swenson in 2 weeks for a recheck PT OT: Recommends rehab Stable for discharge, waiting for rehab placement to [facility] Acute on chronic hyponatremia Likely secondary to Trileptal Sodium levels improved prior to discharge. Cont to monitor as outpatient Abnormal urinalysis UTI ruled out Asymptomatic Urine culture probable skin yusuf Chronic systolic heart failure, compensated. H/O Nonobstructive CAD Mild aortic stenosis pulmonary hypertension as per records Continue home medications Hypothyroidism Normal TSH Continue levothyroxine H/O PE DVT S/P Eliquis FORREST on CPAP Seizure disorder Patient seizure-free in the last 2 years Mood disorder Continue home medications DVT Px: Lovenox SQ CODE STATUS Full code Disposition [facility] Discharge Exam CONSTITUTIONAL: WNWD, vitals as above, generally well-appearing, NAD EYES: normal conjunctivae, no scleral icterus ENT: external ear and nose normal, oropharynx clear, no TM abnormality, no maxillary or ethmoid sinus tenderness NECK: trachea midline, no lymphadenopathy, normal thyroid RESPIRATORY: clear to auscultation bilaterally, no crackles, rales or wheezes, normal respiratory effort CARDIOVASCULAR: regular rate and rhythm, S1 and 2 heard without murmurs, gallops or rubs, no JVD, no peripheral edema, no carotid bruits CHEST: inspection of chest was normal (+pacemaker, +port) GASTROINTESTINAL: normal bowel sounds, soft, nontender, no hepatomegaly, no guarding MUSCULOSKELETAL: strength 5/5 throughout, head is normocephalic and atraumatic, neck supple, normal palpation of chest wall without tenderness SKIN: warm and dry, no rashes NEUROLOGIC: patellar DTRs 2+ bilat. PERRL, EOMI, no facial palsy, no dysarthria. Touch, pain and proprioception normal. CN 2-12 grossly intact, no sensory deficit, normal cognition, normal speech, no tremor PSYCHIATRIC: alert cooperative and oriented to person, place and time. Euthymic mood, makes good eye contact, language grossly intact, recent and remote memory grossly intact. LYMPHATIC: no LAD Updated Medication List Medication Instructions Recorded Confirmed Type acetaminophen 500 mg tablet 1,000 mg PO Q6H PRN Pain 10/31/21 01/26/23 History (Tylenol Extra Strength) divalproex 500 mg tablet,extended 1,000 mg PO HS 10/31/21 01/26/23 History release 24 hr levetiracetam 500 mg tablet 500 mg PO BID 10/31/21 01/26/23 History levothyroxine 75 mcg tablet 75 mcg PO DAILY 10/31/21 01/26/23 History (Euthyrox) oxcarbazepine 150 mg tablet 450 mg PO BID 10/31/21 01/26/23 History gabapentin 300 mg capsule 300 mg PO BID 09/28/22 01/26/23 History cyanocobalamin (vitamin B-12) 1,000 mcg PO DAILY 01/26/23 01/26/23 History 1,000 mcg tablet (Vitamin B-12) glucosamine sulfate 750 mg tablet 750 mg PO DAILY 01/26/23 01/26/23 History Hospital Stay Data Consultations 01/26/23 21:24 ED Decision to Admit Stat 01/27/23 00:00 Consult Orthopedic Surgery Routine Procedures Performed Operation Date: 01/28/23 09:00 <No data on this case meets the specified criteria> Diagnostic Imagining Performed 01/26/23 21:21 CT hip RT wo con Stat Pending Results Patient Have Any Pending Studies at Discharge: No Discharge Instructions Given to Patient (Per Discharging Provider) Please take all medications as instructed on discharge medication list below. Please followup with Dr. Swenson (orthopedics) in two weeks for a recheck on your ankle. It is recommended to followup with your primary care provider within one week of discharge from the hospital to ensure you are still doing well. It was a pleasure taking care of you! Please call if you have any questions or problems. You can reach a [facility] hospitalist on duty at [facility] 24 hours a day by calling [phone]. Take care of yourself. Elena Santana, [facility] Medical Centerist
== END 2023-02-01 16:47 | disposition alcohol treatment (31) | DRG 563 ==
LOC: ED 19:30 → 2N 23:56 → SUATTDRO 23:56 → 2N 01-27 00:19 → 3W 01-31 23:09

== ENCOUNTER 2023-04-18 06:20 | Inpatient (IN) ==
[2023-04-18] MEDS ORDERED: SODIUM CHLORIDE 0.9% 500 ML IV ONE (06:23)
--- NOTE | 2023-04-18 06:40 | Emergency Department Note ---
Impression & Plan Syncope, Fall, Acute UTI, Back pain ED Provider Note NAME: STEVIE CA AGE: 72 SEX: F : 1950 ARRIVES VIA: Ambulance INFORMANT: Patient, ED PROVIDER(S): Gonzales Hutchinson MD CHIEF COMPLAINT: Syncope MEDICAL DECISION MAKING: Patient presents due to concern for syncopal event that occurred prior to arrival. The patient does have associated back pain. CT of the head cervical spine thoracic and lumbar spine were obtained. The patient was ordered Tylenol. IV was established and blood was obtained along with an EKG. Blood work shows a normal white count H&H and platelet count. Kidney function is unremarkable. Urinalysis does show likely infection. Keppra level added which is pending. Patient was also ordered 1000 mg of Keppra as the patient did not take in her morning meds. Given the patient's syncope I did speak with the on-call hospitalist service the patient was admitted by Dr. Perez. Patient was ordered an IV dose of Rocephin for UTI Prior /Outside records reviewed: I reviewed a discharge summary from February 01, 2023. Patient did have a closed fibular fracture and ankle sprain with associated hyponatremia at that time. Differential diagnosis: Vasovagal event, dehydration, infection, hypoglycemia, electrolyte abnormalities, arrhythmia, pulmonary embolism, seizure among others were considered. Diagnostics, as interpreted by me: ECG: Significant motion artifact noted but the patient does appear to be in a sinus rhythm when looking at the lateral leads with associated P waves. Normal sinus rhythm, rate of 75, normal intervals, normal axis no obvious ST elevations. Cardiac monitoring: An order was placed for continuous cardiac monitoring. The monitor shows a rate of 70 with sinus rhythm. Patient was placed on pulse oximetry Medical decision rules: [place] head CT rule, [place] rule Imaging studies: See below I informally reviewed the patient's CT of the head which does not show obvious ICH. HPI: Patient presents due to concern for an episode of syncope. The patient states that she got up this morning to use the restroom and woke up on her back. The patient does complain of some back pain. The patient does not think that she struck her head but the patient does have thoracic and lumbar pain. Patient denies any tongue biting or incontinence. Patient does have a known history of seizures but does not think that she had a seizure. The patient is unsure as to how long she was down for but did pressed her medical alert button in order for EMS to arrive. Patient did not take anything for pain prior to arrival. Patient denies any cough or fever and the patient does not complain of any limited range of motion numbness ting or focal weakness of an extremity. Patient did not yet take her morning meds PAST MEDICAL HISTORY: See Below PAST SURGICAL HISTORY: See Below SOCIAL HISTORY: See Below HOME MEDICATIONS: See Below ALLERGIES: See Below VITALS: See Below PHYSICAL EXAMINATION: GENERAL: NAD, non-toxic. EYE EXAM: Normal conjunctiva. PERRL, no anisocoria and EOM's grossly intact w/o pain. Head: Normocephalic atraumatic. OROPHARYNX: Moist mucus membranes, grossly normal dentition. NECK: Supple, no nuchal rigidity, no adenopathy, non-tender. No signs of meningismus. FROM of the neck with good chin to chest and neck extension. No stridor. No midline C-spine TTP LUNGS: Clear to auscultation. Normal chest wall mechanics. HEART: NSR, no MRG. ABDOMEN: Abdomen soft, non-tender, no masses, no rebound or guarding. BACK: Mid to lower thoracic as well as upper lumbar midline TTP, no overlying skin changes or ecchymosis SKIN: No rashes and no bruising. UPPER EXTREMITIES: Upper extremities are grossly normal. LOWER EXTREMITIES: Grossly normal, no edema. NEURO EXAM: A&O x3, cranial nerves II-XII grossly intact, normal speech, moves all 4 extremities. Past Med/Surg History Medical History Cancer SKIN CANCER Closed fibular fracture Compression fracture Deep vein thrombosis Hallucination Hallucinations (05/29/11) Hearing deficit Hypothyroidism Hypothyroidism On home oxygen therapy [place] OXYGEN AT NIGHT (UNSURE OF LITER) Peripheral neuropathy Psychosis Pulmonary embolism Seizure LAST EPISODE (THIS YEAR/UNSURE OF DATE) ? SEIZURE TYPE>FOLLOWS WITH DR. PHOENIX. OLD RECORDS NOTE EPILEPSY Seizure disorder Sleep apnea NO DEVICE USED NOW (CPAP USED IN PAST) Witnessed seizure-like activity Surgical History History of adenoidectomy History of bilateral tubal ligation History of colonoscopy History of kyphoplasty History of tonsillectomy History of tooth extraction Family History Mother Family hx of colon cancer Social History Smoking Status: Former smoker Second Hand Exposure: Yes (Family members smoked during childhood); Do You Dip or Chew Tobacco: No; Hx Alcohol Use: No Hx Substance Use: No Preferred Language: Belarusian Communication Ability: Effective [place] Required: No Beliefs That Will Affect Care: None marital status: Current Living Situation: Spouse Current Living Situation Comment: Lives in independent living with How many Children do You have: 5 Feels Safe at Home: Yes Safety Concerns: Feels Safe At This Time Assistive Devices: Denture - Upper, Denture - Lower, Walker and Wheelchair Allergies Allergies Allergy/AdvReac Type Severity Reaction Status Date / Time codeine Allergy Intermediate Rash Unverified 01/26/23 20:17 amoxicillin Allergy Rash Verified 01/26/23 20:17 Home Meds Home Medications Medication Instructions Recorded Confirmed acetaminophen 500 mg tablet 1,000 mg PO Q6H PRN Pain 10/31/21 04/18/23 (Tylenol Extra Strength) divalproex 500 mg tablet,extended 1,000 mg PO HS 10/31/21 04/18/23 release 24 hr levetiracetam 500 mg tablet 500 mg PO BID 10/31/21 04/18/23 levothyroxine 75 mcg tablet 75 mcg PO DAILY 10/31/21 04/18/23 (Euthyrox) oxcarbazepine 150 mg tablet 450 mg PO BID 10/31/21 04/18/23 gabapentin 300 mg capsule 300 mg PO BID 09/28/22 04/18/23 cyanocobalamin (vitamin B-12) 1,000 mcg PO DAILY 01/26/23 04/18/23 1,000 mcg tablet (Vitamin B-12) glucosamine sulfate 750 mg tablet 750 mg PO DAILY 01/26/23 04/18/23 Results & Data (ED) Vital Signs Vital Signs - 24 hr 04/18/23 06:21 04/18/23 06:39 04/18/23 06:30 Temperature 36.7 C Temperature Source Oral Pulse Rate 76 77 Pulse Rate from SpO2 Sensor Pulse Strength Normal Respiratory Rate 20 Respiratory Effort / Characteristics Non-Labored Respiratory Depth Normal Respiratory Pattern Regular Blood Pressure 125/72 Blood Pressure Mean 89 Blood Pressure Position Lying Pulse Oximetry 95 96 Oxygen Delivery Method Room Air Room Air Sepsis Recent Fever Within 48 Hours No Sepsis New/Unexplained Change in Mental Status No Sepsis Action Taken by Nursing No Action Required 04/18/23 06:30 04/18/23 07:20 04/18/23 07:30 Temperature Temperature Source Pulse Rate 70 74 Pulse Rate from SpO2 Sensor 70 Pulse Strength Respiratory Rate 18 22 Respiratory Effort / Characteristics Respiratory Depth Respiratory Pattern Blood Pressure 125/72 111/86 Blood Pressure Mean 89 94 Blood Pressure Position Pulse Oximetry 96 96 98 Oxygen Delivery Method Room Air Room Air Room Air Sepsis Recent Fever Within 48 Hours Sepsis New/Unexplained Change in Mental Status Sepsis Action Taken by Nursing 04/18/23 08:03 04/18/23 09:00 04/18/23 09:30 Temperature Temperature Source Pulse Rate 71 69 70 Pulse Rate from SpO2 Sensor Pulse Strength Respiratory Rate 24 14 19 Respiratory Effort / Characteristics Respiratory Depth Respiratory Pattern Blood Pressure 125/85 120/81 126/80 Blood Pressure Mean 98 94 95 Blood Pressure Position Pulse Oximetry 95 99 98 Oxygen Delivery Method Room Air Room Air Room Air Sepsis Recent Fever Within 48 Hours Sepsis New/Unexplained Change in Mental Status Sepsis Action Taken by Nursing 04/18/23 10:00 Temperature Temperature Source Pulse Rate Pulse Rate from SpO2 Sensor 68 Pulse Strength Respiratory Rate 22 Respiratory Effort / Characteristics Respiratory Depth Respiratory Pattern Blood Pressure 137/83 Blood Pressure Mean 101 Blood Pressure Position Pulse Oximetry 95 Oxygen Delivery Method Room Air Sepsis Recent Fever Within 48 Hours Sepsis New/Unexplained Change in Mental Status Sepsis Action Taken by [facility] Medications Current Medication List: was personally reviewed by me Laboratory Data Attestation: I reviewed the patient's lab results. 04/18/23 06:40 04/18/23 06:40 Lab Results 04/18/23 04/18/23 04/18/23 Range/Units 06:40 06:40 06:40 WBC 5.98 (4.8-10.8) K/ul RBC 4.61 (4.20-5.40) M/uL Hgb 15.0 (12.0-16.0) g/dl Hct 42.5 (37.0-47.0) % MCV 92.2 (80.0-100.0) fL MCH 32.5 (25.0-34.0) pg MCHC 35.3 (32.0-36.0) g/dL RDW Std Deviation 42.7 (36.4-46.3) fL RDW Coeff of Benigno 12.6 (11.5-14.5) % Plt Count 248 (130-400) K/uL MPV 9.8 (9.4-12.4) fL Immature Gran % (Auto) 0.3 % Neut % (Auto) 67.6 % Lymph % (Auto) 18.1 % [place] % (Auto) 10.2 % Eos % (Auto) 3.0 % Baso % (Auto) 0.8 % Neut # (Auto) 4.04 (1.40-6.50) K/uL Lymph # (Auto) 1.08 L (1.20-3.40) K/uL [place] # (Auto) 0.61 H (0.11-0.59) K/uL Eos # (Auto) 0.18 (0.00-0.50) K/uL Baso # (Auto) 0.05 (0.00-0.20) K/uL Immature Gran # (Auto) 0.02 (0.01-0.20) K/uL PT (9.0-12.0) Seconds INR (0.9-1.1) Sodium 136 (136-145) mmol/L Potassium TNP Chloride 102 (98-107) mmol/L Carbon Dioxide 28 (21-32) mmol/L Anion Gap 6 (3-11) BUN 9 (6-23) mg/dl Creatinine 0.50 L (0.6-1.2) mg/dl Est Cr Clr Drug Dosing 121.4 ml/min Est GFR ( Amer) 112.9 ml/min Est GFR (Non-Af Amer) 97.4 ml/min BUN/Creatinine Ratio 18.0 (10-20) Glucose 99 (70-99(Fasting)) mg/dl Calcium 9.3 (8.6-10.3) mg/dl Phosphorus 3.3 (2.5-4.9) mg/dl Magnesium 1.9 (1.7-2.4) mg/dl Total Bilirubin 0.4 (0.2-1.0) mg/dl AST TNP ALT 13 (7-52) U/L Alkaline Phosphatase 58 (34-104) U/L Troponin I High Sens 3.3 (0-14) pg/ml Total Protein 7.3 (6.0-8.3) gm/dl Albumin 4.0 (3.4-5.0) gm/dl Globulin 3.3 (2.5-4.0) gm/dl Albumin/Globulin Ratio 1.2 (0.9-2) Lipase 9 L (11-82) U/L TSH 4.006 (0.300-4.500) uIu/ml Urine Color Urine Appearance (Clear) Urine pH (4.5-7.5) Ur Specific [place] (1.000-1.030) Urine Protein (Negative) Urine Glucose (UA) (Negative) Urine Ketones (Negative) Urine Blood (Negative) Urine Nitrite (Negative) Urine Bilirubin (Negative) Urine Urobilinogen (Negative) Ur Leukocyte Esterase (Negative) Urine WBC (Auto) (0-5) /hpf Urine RBC (Auto) (0-4) /hpf U Hyaline Cast (Auto) (0-5) /lpf U Epithel Cells (Auto) (0-5) /lpf Urine Bacteria (Auto) (Negative) Valproic Acid (50-100) mcg/ml 04/18/23 04/18/23 04/18/23 Range/Units 06:40 07:54 07:54 WBC (4.8-10.8) K/ul RBC (4.20-5.40) M/uL Hgb (12.0-16.0) g/dl Hct (37.0-47.0) % MCV (80.0-100.0) fL MCH (25.0-34.0) pg MCHC (32.0-36.0) g/dL RDW Std Deviation (36.4-46.3) fL RDW Coeff of Benigno (11.5-14.5) % Plt Count (130-400) K/uL MPV (9.4-12.4) fL Immature Gran % (Auto) % Neut % (Auto) % Lymph % (Auto) % [place] % (Auto) % Eos % (Auto) % Baso % (Auto) % Neut # (Auto) (1.40-6.50) K/uL Lymph # (Auto) (1.20-3.40) K/uL [place] # (Auto) (0.11-0.59) K/uL Eos # (Auto) (0.00-0.50) K/uL Baso # (Auto) (0.00-0.20) K/uL Immature Gran # (Auto) (0.01-0.20) K/uL PT 10.9 (9.0-12.0) Seconds INR 1.0 (0.9-1.1) Sodium (136-145) mmol/L Potassium 3.7 Chloride (98-107) mmol/L Carbon Dioxide (21-32) mmol/L Anion Gap (3-11) BUN (6-23) mg/dl Creatinine (0.6-1.2) mg/dl Est Cr Clr Drug Dosing ml/min Est GFR ( Amer) ml/min Est GFR (Non-Af Amer) ml/min BUN/Creatinine Ratio (10-20) Glucose (70-99(Fasting)) mg/dl Calcium (8.6-10.3) mg/dl Phosphorus (2.5-4.9) mg/dl Magnesium (1.7-2.4) mg/dl Total Bilirubin (0.2-1.0) mg/dl AST 14 ALT (7-52) U/L Alkaline Phosphatase (34-104) U/L Troponin I High Sens (0-14) pg/ml Total Protein (6.0-8.3) gm/dl Albumin (3.4-5.0) gm/dl Globulin (2.5-4.0) gm/dl Albumin/Globulin Ratio (0.9-2) Lipase (11-82) U/L TSH (0.300-4.500) uIu/ml Urine Color Urine Appearance (Clear) Urine pH (4.5-7.5) Ur Specific [place] (1.000-1.030) Urine Protein (Negative) Urine Glucose (UA) (Negative) Urine Ketones (Negative) Urine Blood (Negative) Urine Nitrite (Negative) Urine Bilirubin (Negative) Urine Urobilinogen (Negative) Ur Leukocyte Esterase (Negative) Urine WBC (Auto) (0-5) /hpf Urine RBC (Auto) (0-4) /hpf U Hyaline Cast (Auto) (0-5) /lpf U Epithel Cells (Auto) (0-5) /lpf Urine Bacteria (Auto) (Negative) Valproic Acid 84 (50-100) mcg/ml 04/18/23 Range/Units 10:38 WBC (4.8-10.8) K/ul RBC (4.20-5.40) M/uL Hgb (12.0-16.0) g/dl Hct (37.0-47.0) % MCV (80.0-100.0) fL MCH (25.0-34.0) pg MCHC (32.0-36.0) g/dL RDW Std Deviation (36.4-46.3) fL RDW Coeff of Benigno (11.5-14.5) % Plt Count (130-400) K/uL MPV (9.4-12.4) fL Immature Gran % (Auto) % Neut % (Auto) % Lymph % (Auto) % [place] % (Auto) % Eos % (Auto) % Baso % (Auto) % Neut # (Auto) (1.40-6.50) K/uL Lymph # (Auto) (1.20-3.40) K/uL [place] # (Auto) (0.11-0.59) K/uL Eos # (Auto) (0.00-0.50) K/uL Baso # (Auto) (0.00-0.20) K/uL Immature Gran # (Auto) (0.01-0.20) K/uL PT (9.0-12.0) Seconds INR (0.9-1.1) Sodium (136-145) mmol/L Potassium Chloride (98-107) mmol/L Carbon Dioxide (21-32) mmol/L Anion Gap (3-11) BUN (6-23) mg/dl Creatinine (0.6-1.2) mg/dl Est Cr Clr Drug Dosing ml/min Est GFR ( Amer) ml/min Est GFR (Non-Af Amer) ml/min BUN/Creatinine Ratio (10-20) Glucose (70-99(Fasting)) mg/dl Calcium (8.6-10.3) mg/dl Phosphorus (2.5-4.9) mg/dl Magnesium (1.7-2.4) mg/dl Total Bilirubin (0.2-1.0) mg/dl AST ALT (7-52) U/L Alkaline Phosphatase (34-104) U/L Troponin I High Sens (0-14) pg/ml Total Protein (6.0-8.3) gm/dl Albumin (3.4-5.0) gm/dl Globulin (2.5-4.0) gm/dl Albumin/Globulin Ratio (0.9-2) Lipase (11-82) U/L TSH (0.300-4.500) uIu/ml Urine Color Dark Yellow Urine Appearance Cloudy A (Clear) Urine pH 6.5 (4.5-7.5) Ur Specific [place] 1.033 H (1.000-1.030) Urine Protein 1+ H (Negative) Urine Glucose (UA) Negative (Negative) Urine Ketones 1+ H (Negative) Urine Blood Negative (Negative) Urine Nitrite Positive A (Negative) Urine Bilirubin Negative (Negative) Urine Urobilinogen Negative (Negative) Ur Leukocyte Esterase 2+ H (Negative) Urine WBC (Auto) >30 H (0-5) /hpf Urine RBC (Auto) 0-4 (0-4) /hpf U Hyaline Cast (Auto) 5-10 H (0-5) /lpf U Epithel Cells (Auto) >30 H (0-5) /lpf Urine Bacteria (Auto) 4+ H (Negative) Valproic Acid (50-100) mcg/ml Administered Medications Discontinued Medications Acetaminophen (Acetaminophen 500 Mg Tab) 1,000 mg PO NOW STA Stop: 04/18/23 06:59 Last Admin: 04/18/23 07:20 Dose: 1,000 mg Documented By: CARLOS Sodium Chloride (Nss) 500 mls @ 999 mls/hr IV .Q31M ONE Stop: 04/18/23 06:53 Last Infusion: 04/18/23 08:00 Dose: 0 mls/hr Documented By: Admin: 04/18/23 07:20 Dose: 999 mls/hr Documented By: CARLOS Sodium Chloride (Nss) 500 mls @ 999 mls/hr IV .Q31M SACHA Stop: 04/18/23 07:30 Last Infusion: 04/18/23 08:00 Dose: 0 mls/hr Documented By: Admin: 04/18/23 07:20 Dose: 999 mls/hr Documented By: CARLOS Levetiracetam 1,000 mg/ Sodium (Chloride) 110 mls @ 440 mls/hr IV NOW STA Stop: 04/18/23 09:27 Last Infusion: 04/18/23 09:48 Dose: 0 mls/hr Documented By: Admin: 04/18/23 09:28 Dose: 440 mls/hr Documented By: CARLOS Imaging Data Radiologist's Impression: Chest X-Ray 04/18/23 06:23 XR chest 1V portable HISTORY: syncope COMPARISON: Chest and right rib series 01/26/2023. FINDINGS: No pneumothorax or no pleural effusions. The lungs are clear. The cardiac silhouette is normal in size. A loop recorder is seen within the left chest. No acute fractures identified. IMPRESSION: No acute process. ACT 112: Negative or not required by law. Electronically signed by: Brock Moore M.D. 04/18/2023 7:[address] 04/18/23 06:53 CT thoracic spine wo con, CT lumbar spine wo con CLINICAL HISTORY: back pain TECHNIQUE: Multidetector row helical CT of the thoracic and lumbar spine was performed without administration of intravenous contrast. Coronal and sagittal reformations were obtained. Automated dose lowering techniques and/or adjustment according to patient size were utilized for this exam. CT DOSE: 3577.73 mGy.cm Comparison: Comparison is made to MRI lumbar spine 04/16/2022 FINDINGS: No acute fractures are identified. Degenerative changes are noted in the visualized spine. 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 Vertebral body alignment is within normal limits. Atelectasis is seen. A small hiatal hernia is noted. Diverticulosis is seen without diverticulitis. IMPRESSION: Degenerative changes without evidence of acute fracture. 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 ACT 112: Negative or not required by law. Electronically signed by: Tenzin Hussein M.D. 04/18/2023 8:[address] 04/18/23 06:53 CT thoracic spine wo con, CT lumbar spine wo con CLINICAL HISTORY: back pain TECHNIQUE: Multidetector row helical CT of the thoracic and lumbar spine was performed without administration of intravenous contrast. Coronal and sagittal reformations were obtained. Automated dose lowering techniques and/or adjustment according to patient size were utilized for this exam. CT DOSE: 3577.73 mGy.cm Comparison: Comparison is made to MRI lumbar spine 04/16/2022 FINDINGS: No acute fractures are identified. Degenerative changes are noted in the visualized spine. 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 Vertebral body alignment is within normal limits. Atelectasis is seen. A small hiatal hernia is noted. Diverticulosis is seen without dive rticulitis. IMPRESSION: Degenerative changes without evidence of acute fracture. 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 ACT 112: Negative or not required by law. Electronically signed by: Tenzin Hussein M.D. 04/18/2023 8:[address] 04/18/23 06:[address] DOSE: HISTORY: fall, back pain TECHNIQUE: Multiaxial CT images of the cervical spine were performed and reformatted in the sagittal and coronal plane without the use of contrast. A dose lowering technique was utilized adhering to the principles of ALARA. COMPARISON: Cervical spine CT 09/28/2022. FINDINGS: No fractures. No subluxation. Prevertebral soft tissues and the C1-C2 interval are intact. No pneumothorax. Mild to moderate degenerative disc disease throughout the cervical spine. IMPRESSION: No fractures within the cervical spine. ACT 112: Negative or not required by law. Electronically signed by: Brock Moore M.D. 04/18/2023 8:[address] 04/18/23 06:56 CT head/brain wo con CLINICAL HISTORY: syncope Technique: Contiguous axial CT images of the head were acquired from the base of the skull to the vertex without intravenous contrast administration. Images were viewed in brain, subdural and bone windows. Automated dose lowering techniques and/or adjustment according to patient size were utilized for this exam. Comparison: Comparison is made to CT head 09/28/2022 Findings: Areas of decreased attenuation are present in the periventricular and subcortical white matter bilaterally consistent with small vessel ischemic disease. Generalized cerebral atrophy with commensurate enlargement of the ventricles, sulci, and cisterns is also present. There is no acute intracranial hemorrhage or evidence of acute territorial infarction. No shift of the midline structures, mass effect, or extra-axial abnormalities are shown. Atherosclerotic calcifications are present in the intracranial segments of the internal carotid arteries. Imaged portions of the paranasal sinuses and mastoid air cells are clear. The orbits appear normal. There are no acute fractures of the calvaria or scalp swelling. Impression: No acute intracranial hemorrhage, no evidence of acute territorial infarction or other acute intracranial disease process. ACT 112: Negative or not required by law. Electronically signed by: Tenzin Hussein M.D. 04/18/2023 8:31 AM Discharge Plan Visit Data Chief Complaint: Syncope Stated Complaint: Syncope, Fall ED Provider: Gonzales Hutchinson Discharge Problem: Syncope, Fall, Acute UTI, Back pain Patient Disposition: Admitted As Inpatient Discharge Instructions Interventions: ED Discharge Assessment Last Done: 04/18/23 12:16
[2023-04-18] MEDS ORDERED: ACETAMINOPHEN 500 MG TAB PO STA (06:58)
[2023-04-18] MEDS ORDERED: SODIUM CHLORIDE 0.9% 500 ML IV SCH (07:00)
[2023-04-18 07:01] LABS: Basophils # (auto) 0.05 K/uL (0.00-0.20); Basophils % (auto) 0.8 %; Eosinophils # (auto) 0.18 K/uL (0.00-0.50); Hematocrit (blood only) 42.5 % (37.0-47.0); Immature Granulocytes # (auto) 0.02 K/uL (0.01-0.20); Immature Granulocytes % (auto) 0.3 %; Lymphocytes # (auto) 1.08 K/uL (1.20-3.40); Lymphocytes % (auto) 18.1 %; Mean Corpuscular Hemoglobin 32.5 pg (25.0-34.0); Mean Corpuscular Hgb Conc 35.3 g/dL (32.0-36.0); Mean Corpuscular Volume 92.2 fL (80.0-100.0); Mean Platelet Volume 9.8 fL (9.4-12.4); Monocytes # (auto) 0.61 K/uL (0.11-0.59); Monocytes % (auto) 10.2 %; Neutrophils # (auto) 4.04 K/uL (1.40-6.50); Neutrophils % (auto) 67.6 %; Platelet Count 248 K/uL (130-400); RDW Coefficient of Variation 12.6 % (11.5-14.5); RDW Standard Deviation 42.7 fL (36.4-46.3); Red Blood Count 4.61 M/uL (4.20-5.40); White Blood Count 5.98 K/ul (4.8-10.8)
[2023-04-18 07:27] LABS: Prothrombin Time 10.9 Seconds (9.0-12.0)
--- NOTE | 2023-04-18 07:49 | XRay Report ---
XR chest 1V portable HISTORY: syncope COMPARISON: Chest and right rib series 01/26/2023. FINDINGS: No pneumothorax or no pleural effusions. The lungs are clear. The cardiac silhouette is nor mal in size. A loop recorder is seen within the left chest. No acute fractures identified. IMPRESSION: No acute process. ACT 112: Negative or not required by law. Electronically signed by: Brock Moore M.D. 04/18/2023 7:47 AM
[2023-04-18 07:50] LABS: Alanine Aminotransferase 13 U/L (7-52); Albumin Globulin Ratio 1.2 (0.9-2); Alkaline Phosphatase 58 U/L (34-104); Anion Gap 6 (3-11); Bilirubin,Total 0.4 mg/dl (0.2-1.0); Blood Urea Nitrogen 9 mg/dl (6-23); Calcium 9.3 mg/dl (8.6-10.3); Carbon Dioxide 28 mmol/L (21-32); Chloride 102 mmol/L (98-107); Creatinine Clr Calc Pharmacy 121.4 ml/min; Est GFR (African American) 112.9 ml/min; Est GFR (Non-African American) 97.4 ml/min; Globulin 3.3 gm/dl (2.5-4.0); Glucose 99 mg/dl (70-99(Fasting)); Lipase 9 U/L (11-82); Magnesium 1.9 mg/dl (1.7-2.4); Phosphorus 3.3 mg/dl (2.5-4.9); Sodium 136 mmol/L (136-145); Total Protein 7.3 gm/dl (6.0-8.3)
[2023-04-18 07:53] LABS: Troponin I High Sensitivity 3.3 pg/ml (0-14)
--- NOTE | 2023-04-18 08:33 | CT Scan Report ---
CT head/brain wo con CLINICAL HISTORY: syncope Technique: Contiguous axial CT images of the head were acquired from the base of the skull to the michael marcie without intravenous contrast administration. Images were viewed in brain, subdural and [facility] Automated dose lowering techniques and/or adjustment according to patient size were utilized for this exam. Comparison: Comparison is made to CT head 09/28/2022 Findings: Areas of decreased attenuation are present in the periventricular and subcortical white matter bilate rally consistent with small vessel ischemic disease. Generalized cerebral atrophy with commensurate e nlargement of the ventricles, sulci, and cisterns is also present. There is no acute intracranial hem orrhage or evidence of acute territorial infarction. No shift of the midline structures, mass effect, or extra-axial abnormalities are shown. Atherosclerotic calcifications are present in the intracran ial segments of the internal carotid arteries. Imaged portions of the paranasal sinuses and mastoid air cells are clear. The orbits appear normal. There are no acute fractures of the calvaria or scalp swelling. Impression: No acute intracranial hemorrhage, no evidence of acute territorial infarction or other acute intracra nial disease process. ACT 112: Negative or not required by law. Electronically signed by: Tenzin Hussein M.D. 04/18/2023 8:31 AM
--- NOTE | 2023-04-18 08:42 | CT Scan Report ---
CT thoracic spine wo con, CT lumbar spine wo con CLINICAL HISTORY: back pain TECHNIQUE: Multidetector row helical CT of the thoracic and lumbar spine was performed without admini stration of intravenous contrast. Coronal and sagittal reformations were obtained. Automated dose low ering techniques and/or adjustment according to patient size were utilized for this exam. CT DOSE: 3577.73 mGy.cm Comparison: Comparison is made to MRI lumbar spine 04/16/2022 FINDINGS: No acute fractures are identified. Degenerative changes are noted in the visualized spine. Bone cemen t arthroplasties are seen in L1-L5 with associated loss of height. Vertebral body alignment is within normal limits. Atelectasis is seen. A small hiatal hernia is noted. Diverticulosis is seen without d iverticulitis. IMPRESSION: Degenerative changes without evidence of acute fracture. Old cemented arthroplasty with associated lo ss of height noted. ACT 112: Negative or not required by law. Electronically signed by: Tenzin Hussein M.D. 04/18/2023 8:41 AM
[2023-04-18 08:43] LABS: Potassium 3.7 mmol/L (3.5-5.1)
--- NOTE | 2023-04-18 08:50 | CT Scan Report ---
CERVICAL SPINE CT CT DOSE: HISTORY: fall, back pain TECHNIQUE: Multiaxial CT images of the cervical spine were performed and reformatted in the sagittal and coronal plane without the use of contrast. A dose lowering technique was utilized adhering to e principles of ALARA. COMPARISON: Cervical spine CT 09/28/2022. FINDINGS: No fractures. No subluxation. Prevertebral soft tissues and the C1-C2 interval are intact. No pneumothorax. Mild to moderate degenerative disc disease throughout the cervical spine. IMPRESSION: No fractures within the cervical spine. ACT 112: Negative or not required by law. Electronically signed by: Brock Moore M.D. 04/18/2023 8:48 AM
[2023-04-18] MEDS ORDERED: levETIRAcetam 1,000 MG in 0.9 % SODIUM CHLORIDE 100 ML IV STA (09:13)
[2023-04-18] MEDS ORDERED: POLYETHYLENE (MIRALAX) 17 GM PACK PO PRN (10:43)
[2023-04-18] MEDS ORDERED: ACETAMINOPHEN 325 MG TAB PO PRN (10:43)
[2023-04-18] MEDS ORDERED: ONDANSETRON INJ 2 MG/ML 2 ML VIAL IV PRN (10:43)
[2023-04-18 10:58] LABS: Appearance Urine Cloudy (Clear); Bacteria Urine Automated 4+ (Negative); Bilirubin Urine Negative (Negative); Blood Urine Negative (Negative); Color Urine Dark Yellow; Epithelial Cell Urine Auto >30 /lpf (0-5); Glucose Urine UA Negative (Negative); Ketones Urine 1+ (Negative); Leukocyte Esterase Urine 2+ (Negative); Nitrite Urine Positive (Negative); Protein Urine 1+ (Negative); RBC Urine Automated 0-4 /hpf (0-4); Specific Gravity Urine 1.033 (1.000-1.030); Urobilinogen Urine Negative (Negative); WBC Urine Automated >30 /hpf (0-5); pH Urine 6.5 (4.5-7.5)
[2023-04-18] MEDS ORDERED: cefTRIAXone SODIUM 2,000 MG/70 ML BAG IV STA (13:39)
--- NOTE | 2023-04-18 14:10 | History & Physical Report ---
Date of Service April 18, 2023 Assessment & Plan (1) Syncope: (2) Fall: (3) Acute UTI: (4) Back pain: (5) Apical ballooning syndrome: (6) Seizure disorder: (7) FORREST (obstructive sleep apnea): (8) History of pulmonary embolism: (9) Hypothyroidism: Plan Pt is a 72yoF with PMHx significant for epilepsy, HFrEF (EF 25-30%, TTE 2022), nonobstructive CAD, mild aortic stenosis, pulm HTN, hx PE DVT sp Eliquis, FORREST on CPAP, chronic hyponatremia, hypothyroidism, mood disorder, ambulatory dysfunction who presents after a syncopal episode at home. Syncope/Falls/Epilepsy Pt states that she was going to the bathroom this morning when she had another episode where she completely blacked out and fell. Not the first time that this has happened. Chart review notes that she follows with Neurology for a Hx of epilepsy and son has cameras at home that record her having seizures and falling, sometimes due to medication noncompliance. Had a right tib-fib fracture after one of those falls earlier this year, managed conservatively with a boot. Followed with ortho. States this morning she was home alone when she passed out and pressed the life alert button once she came to. EMS brought her to the ED. Chart review notes Hx of previous loop recorder in 2021. Interrogated in October 2022 with no acute cause. EKG today with NSR Last echo in Sep 2022 was suggestive of stress induced cardiomyopathy with an apical ballooning pattern. No significant valvular pathology. Last EF of 25-30%. Repeat echo pending. Cardiology consult- appreciate recs. Follows closely with [facility] Neurology, last visit on 03/17/[address] Rudolph, epileptic medications adjusted. Head CT with no acute changes, MRI brain pending Imaging of the cervical, thoracic and lumbar spine with no acute fractures. Continue home Keppra, depakote and oxcarbazepine- valproic acid level wnl, keppra level pending. Neurology consult- appreciate recs. PT/OT UTI Pt notes some dysuria UA suggestive of infection, urine Cx pending Possible cause of this fall episode Rocephin treatment- narrow based on culture results Hypothyroidism- continue home levothyroxine DDD, neuropathy- continue home gabapentin B12 def- continue home supplement CODE STATUS: Full code DVT prophylaxis: Lovenox SQ Diet: HH, low sodium Dispo: PCU/tele History of Present Illness Chief Complaint: Syncope/Collapse Primary Care Provider: Kiki Hay MD Pt is a 72yoF with PMHx significant for epilepsy, HFrEF (EF 25-30%, TTE 2022), nonobstructive CAD, mild aortic stenosis, pulm HTN, hx PE DVT sp Eliquis, FORREST on CPAP, chronic hyponatremia, hypothyroidism, mood disorder, ambulatory dysfunction who presents after a syncopal episode at home today. Hx obtained from the patient and [employer] and [employer] chart review. Pt states that she was going to the bathroom this morning when she had a syncopal episode. She describes it as completely blacking out and causing her to fall. She states that this is not the first time that this has happened. She describes a previous episode where she was on the ground for many hours. This prompted her to get a life alert button which she had today and pressed. She was brought to the ED by EMS as a result. [employer] Chart review also notes that she follows with Neurology for a Hx of epilepsy and son has cameras at home that record her having seizures and falling. Neurology notes cite some concern that these might be related to medication noncompliance. Pt states today that she believes it is due to being OVER medicated and wonders about polypharmacy with her seizure medications. [employer] chart review shows she is currently prescribed Keppra 500mg BID, Depakote ER 500mg, 2 tabs once daily and oxcarbazepine 150mg, 3tabs BID. Chart review notes Hx of previous loop recorder in 2021. Interrogated in October 2022 with no acute cause. Pt notes she has had a right tib-fib fracture after one of those falls earlier this year, managed conservatively with a boot. Followed with ortho. Denies SOB, chest pain, cough, congestion. However admits to some dysuria. ED Course: Head CT and cervical, thoracic, lumbar xrays with acute changes/fractures. Allergies Allergy/AdvReac Type Severity Reaction Status Date / Time codeine Allergy Intermediate Rash Unverified 01/26/23 20:17 amoxicillin Allergy Rash Verified 01/26/23 20:17 Home Medications Medication Instructions Recorded Confirmed Type acetaminophen 500 mg tablet 1,000 mg PO Q6H PRN Pain 10/31/21 04/18/23 History (Tylenol Extra Strength) divalproex 500 mg tablet,extended 1,000 mg PO HS 10/31/21 04/18/23 History release 24 hr levetiracetam 500 mg tablet 500 mg PO BID 10/31/21 04/18/23 History levothyroxine 75 mcg tablet 75 mcg PO DAILY 10/31/21 04/18/23 History (Euthyrox) oxcarbazepine 150 mg tablet 450 mg PO BID 10/31/21 04/18/23 History gabapentin 300 mg capsule 300 mg PO BID 09/28/22 04/18/23 History cyanocobalamin (vitamin B-12) 1,000 mcg PO DAILY 01/26/23 04/18/23 History 1,000 mcg tablet (Vitamin B-12) glucosamine sulfate 750 mg tablet 750 mg PO DAILY 01/26/23 04/18/23 History Past Med/Surg History Medical History Cancer SKIN CANCER Closed fibular fracture Compression fracture Deep vein thrombosis Hallucination Hallucinations (05/29/11) Hearing deficit Hypothyroidism Hypothyroidism On home oxygen therapy [place] OXYGEN AT NIGHT (UNSURE OF LITER) Peripheral neuropathy Psychosis Pulmonary embolism Seizure LAST EPISODE (THIS YEAR/UNSURE OF DATE) ? SEIZURE TYPE>FOLLOWS WITH DR. PHOENIX. OLD RECORDS NOTE EPILEPSY Seizure disorder Sleep apnea NO DEVICE USED NOW (CPAP USED IN PAST) Witnessed seizure-like activity Surgical History History of adenoidectomy History of bilateral tubal ligation History of colonoscopy History of kyphoplasty History of tonsillectomy History of tooth extraction Family History Mother Family hx of colon cancer Social History Smoking Status: Former smoker Second Hand Exposure: Yes (Family members smoked during childhood); Do You Dip or Chew Tobacco: No; Hx Alcohol Use: No Hx Substance Use: No Preferred Language: Belarusian Communication Ability: Effective Money Order Clerk Required: No Beliefs That Will Affect Care: None marital status: Current Living Situation: Spouse Current Living Situation Comment: Lives in independent living with How many Children do You have: 5 Feels Safe at Home: Yes Safety Concerns: Feels Safe At This Time Assistive Devices: Denture - Upper, Denture - Lower, Walker and Wheelchair Review of Systems Review of Systems: All systems reviewed & are unremarkable except as noted in HPI & below Physical Exam Physical Exam: General: Alert, oriented. No acute distress Skin: healed wound on LLE ankle Psych: Appropriate mood and affect Neuro: Difficulty with general movement in the bed HEENT: NC/AT CV: RRR Resp: Breath sounds clear but decreased bilaterally, no increased effort of breathing. Abdomen: Soft, nontender Extremities: +++ edema in lower extremities bilaterally. Results & Data Results & Data Vital Signs (Past 12 Hours) Vital Signs Temp Pulse Resp BP Pulse Ox O2 Del Method 04/18/23 10:00 22 137/83 95 Room Air 04/18/23 09:30 70 19 126/80 98 Room Air 04/18/23 09:00 69 14 120/81 99 Room Air 04/18/23 08:03 71 24 125/85 95 Room Air 04/18/23 07:30 74 22 111/86 98 Room Air 04/18/23 07:20 70 18 125/72 96 Room Air 04/18/23 06:30 96 Room Air 04/18/23 06:30 96 Room Air 04/18/23 06:39 77 04/18/23 06:21 36.7 C 76 20 125/72 95 Room Air Diagnostic Findings Chest X-Ray 04/18/23 06:23 XR chest 1V portable HISTORY: syncope COMPARISON: Chest and right rib series 01/26/2023. FINDINGS: No pneumothorax or no pleural effusions. The lungs are clear. The cardiac silhouette is normal in size. A loop recorder is seen within the left chest. No acute fractures identified. IMPRESSION: No acute process. ACT 112: Negative or not required by law. Electronically signed by: Brock Moore M.D. 04/18/2023 7:[address] 04/18/23 06:53 CT thoracic spine wo con, CT lumbar spine wo con CLINICAL HISTORY: back pain TECHNIQUE: Multidetector row helical CT of the thoracic and lumbar spine was performed without administration of intravenous contrast. Coronal and sagittal reformations were obtained. Automated dose lowering techniques and/or adjustment according to patient size were utilized for this exam. CT DOSE: 3577.73 mGy.cm Comparison: Comparison is made to MRI lumbar spine 04/16/2022 FINDINGS: No acute fractures are identified. Degenerative changes are noted in the visualized spine. 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 Vertebral body alignment is within normal limits. Atelectasis is seen. A small hiatal hernia is noted. Diverticulosis is seen without diverticulitis. IMPRESSION: Degenerative changes without evidence of acute fracture. 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 ACT 112: Negative or not required by law. Electronically signed by: Tenzin Hussein M.D. 04/18/2023 8:[address] 04/18/23 06:53 CT thoracic spine wo con, CT lumbar spine wo con CLINICAL HISTORY: back pain TECHNIQUE: Multidetector row helical CT of the thoracic and lumbar spine was performed without administration of intravenous contrast. Coronal and sagittal reformations were obtained. Automated dose lowering techniques and/or adjustment according to patient size were utilized for this exam. CT DOSE: 3577.73 mGy.cm Comparison: Comparison is made to MRI lumbar spine 04/16/2022 FINDINGS: No acute fractures are identified. Degenerative changes are noted in the visualized spine. 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 Vertebral body alignment is within normal limits. Atelectasis is seen. A small hiatal hernia is noted. Diverticulosis is seen without diverticulitis. IMPRESSION: Degenerative changes without evidence of acute fracture. Old cemented arthr oplasty with associated loss of height noted. ACT 112: Negative or not required by law. Electronically signed by: Tenzin Hussein M.D. 04/18/2023 8:[address] 04/18/23 06:[address] DOSE: HISTORY: fall, back pain TECHNIQUE: Multiaxial CT images of the cervical spine were performed and reformatted in the sagittal and coronal plane without the use of contrast. A dose lowering technique was utilized adhering to the principles of ALARA. COMPARISON: Cervical spine CT 09/28/2022. FINDINGS: No fractures. No subluxation. Prevertebral soft tissues and the C1-C2 interval are intact. No pneumothorax. Mild to moderate degenerative disc disease throughout the cervical spine. IMPRESSION: No fractures within the cervical spine. ACT 112: Negative or not required by law. Electronically signed by: Brock Moore M.D. 04/18/2023 8:[address] 04/18/23 06:56 CT head/brain wo con CLINICAL HISTORY: syncope Technique: Contiguous axial CT images of the head were acquired from the base of the skull to the vertex without intravenous contrast administration. Images were viewed in brain, subdural and bone windows. Automated dose lowering techniques and/or adjustment according to patient size were utilized for this exam. Comparison: Comparison is made to CT head 09/28/2022 Findings: Areas of decreased attenuation are present in the periventricular and subcortical white matter bilaterally consistent with small vessel ischemic disease. Generalized cerebral atrophy with commensurate enlargement of the ventricles, sulci, and cisterns is also present. There is no acute intracranial hemorrhage or evidence of acute territorial infarction. No shift of the midline structures, mass effect, or extra-axial abnormalities are shown. Atherosclerotic calcifications are present in the intracranial segments of the internal carotid arteries. Imaged portions of the paranasal sinuses and mastoid air cells are clear. The orbits appear normal. There are no acute fractures of the calvaria or scalp swelling. Impression: No acute intracranial hemorrhage, no evidence of acute territorial infarction or other acute intracranial disease process. ACT 112: Negative or not required by law. Electronically signed by: Tenzin Hussein M.D. 04/18/2023 8:31 AM (1) Syncope Syncope type: unspecified Qualified Code(s): R55 - Syncope and collapse (2) Fall Encounter type: initial encounter Qualified Code(s): W19.XXXA - Unspecified fall, initial encounter (4) Back pain Back pain laterality: midline Back pain location: thoracic back pain Chronicity: acute Qualified Code(s): M54.6 - Pain in thoracic spine
--- NOTE | 2023-04-18 17:13 | Cardiology Consultation ---
Date of Consultation April 18, 2023 Assessment & Plan (1) Fall: (2) Syncope: -Cardiology consulted due to concerns of syncope. Patient with longstanding history of recurrent fall episodes for over 2 years. There has been concern of possible seizure activity and she is therefore on Keppra and is also on Depakote. Her loop recorder was interrogated today, with no arrhythmia events that would have correlated with her loss of postural tone episode that took place at just after 4 AM this morning. Echocardiogram reveals normal left ventricular wall motion and ejection fraction. In retrospect, echocardiogram findings dating back to September, likely consistent with a stress-induced cardiomyopathy at that time. Patient with previous cardiac catheterization at time of fall episode with non- STEMI in 2020 without significant coronary obstruction as noted in HPI. High-sensitivity troponin is negative x1. Patient has been found to have a urinary tract infection I think it is reasonable to treat that. No further cardiac testing felt to be indicated at this time. History of Present Illness Attending Physician: Odilia Perez MD History of Present Illness Sintia Shah is a 72-year-old female seen in cardiology consultation per the request of Dr. Perez for the evaluation of syncope. Patient reports that her is currently admitted to the hospital for back pain. She was therefore home alone last evening. She slept in her motorized lift chair. At 4 AM she attempted to get up to ambulate to the restroom to urinate. She stated that she was walking with her walker and the next thing she knew she woke up on the floor. She does not recall any additional circumstances. She did not lose control of bowel or bladder. History: Multiple evaluation for episodes of loss of postural tone described as syncope or falling. Admission in November, with loss of consciousness episode and a non-STEMI, (low sensitivity) troponin I peaking at 6.4 ng/ml at that time, cardiac catheterization revealed new culprit with a 20% ostial circumflex stenosis otherwise mild luminal irregularities noted Loop recorder placed 11/01/2021 (Dr Garcias, [facility], followed by Dr Cerrato, [facility] cardiology clinic) Admission for frequent falls September, with echocardiogram suggestive of stress-induced cardiomyopathy, regional wall motion abnormalities and LVEF resolved/normalized as of repeat echo 04/18/2023 Allergies Allergy/AdvReac Type Severity Reaction Status Date / Time codeine Allergy Intermediate Rash Unverified 01/26/23 20:17 amoxicillin Allergy Rash Verified 01/26/23 20:17 Home Medications Medication Instructions Recorded Confirmed Type acetaminophen 500 mg tablet 1,000 mg PO Q6H PRN Pain 10/31/21 04/18/23 History (Tylenol Extra Strength) divalproex 500 mg tablet,extended 1,000 mg PO HS 10/31/21 04/18/23 History release 24 hr levetiracetam 500 mg tablet 500 mg PO BID 10/31/21 04/18/23 History levothyroxine 75 mcg tablet 75 mcg PO DAILY 10/31/21 04/18/23 History (Euthyrox) oxcarbazepine 150 mg tablet 450 mg PO BID 10/31/21 04/18/23 History gabapentin 300 mg capsule 300 mg PO BID 09/28/22 04/18/23 History cyanocobalamin (vitamin B-12) 1,000 mcg PO DAILY 01/26/23 04/18/23 History 1,000 mcg tablet (Vitamin B-12) glucosamine sulfate 750 mg tablet 750 mg PO DAILY 01/26/23 04/18/23 History Patient History Medical History Cancer SKIN CANCER Closed fibular fracture Compression fracture Deep vein thrombosis Hallucination Hallucinations (05/29/11) Hearing deficit Hypothyroidism Hypothyroidism On home oxygen therapy [place] OXYGEN AT NIGHT (UNSURE OF LITER) Peripheral neuropathy Psychosis Pulmonary embolism Seizure LAST EPISODE (THIS YEAR/UNSURE OF DATE) ? SEIZURE TYPE>FOLLOWS WITH DR. PHOENIX. OLD RECORDS NOTE EPILEPSY Seizure disorder Sleep apnea NO DEVICE USED NOW (CPAP USED IN PAST) Witnessed seizure-like activity Surgical History History of adenoidectomy History of bilateral tubal ligation History of colonoscopy History of kyphoplasty History of tonsillectomy History of tooth extraction Family History Mother Family hx of colon cancer Social History Smoking Status: Former smoker Second Hand Exposure: Yes (Family members smoked during childhood); Do You Dip or Chew Tobacco: No; Hx Alcohol Use: No Hx Substance Use: No Preferred Language: Ug[place]an Communication Ability: Effective Nurses' Registry Director Required: No Beliefs That Will Affect Care: None marital status: Current Living Situation: Spouse Current Living Situation Comment: Lives in independent living with How many Children do You have: 5 Feels Safe at Home: Yes Safety Concerns: Feels Safe At This Time Assistive Devices: Denture - Upper, Denture - Lower, Walker and Wheelchair Review of Systems Review of Systems: All systems reviewed & are unremarkable except as noted in HPI & below Physical Exam Physical Exam: Temp Pulse Resp BP Pulse Ox O2 Del Method 36.5 C 71 20 128/85 96 Room Air 04/18/23 15:39 04/18/23 16:52 04/18/23 15:39 04/18/23 15:39 04/18/23 15:39 04/18/23 15:53 Constitutional: WD/WN, vitals as above Respiratory: normal respiratory effort, lungs clear to auscultation Cardiovascular: RRR, no murmur, no edema Gastrointestinal (Abdomen): normal bowel sounds, soft, nontender, no hepatosplenomegaly Neurologic: PERRL, EOMI, accommodation nl, no face palsy, no dysarthria Results & Data Laboratory Results Cardiac Enzymes 04/18/23 04/18/23 Range/Units 06:40 07:54 AST TNP 14 Troponin I High Sens 3.3 (0-14) pg/ml Coagulation 04/18/23 Range/Units 06:40 PT 10.9 (9.0-12.0) Seconds CBC 04/18/23 Range/Units 06:40 WBC 5.98 (4.8-10.8) K/ul RBC 4.61 (4.20-5.40) M/uL Hgb 15.0 (12.0-16.0) g/dl Hct 42.5 (37.0-47.0) % Plt Count 248 (130-400) K/uL Neut # (Auto) 4.04 (1.40-6.50) K/uL Lymph # (Auto) 1.08 L (1.20-3.40) K/uL [place] # (Auto) 0.61 H (0.11-0.59) K/uL Eos # (Auto) 0.18 (0.00-0.50) K/uL Baso # (Auto) 0.05 (0.00-0.20) K/uL Comprehensive Metabolic Panel 04/18/23 04/18/23 Range/Units 06:40 07:54 Sodium 136 (136-145) mmol/L Potassium TNP 3.7 Chloride 102 (98-107) mmol/L Carbon Dioxide 28 (21-32) mmol/L BUN 9 (6-23) mg/dl Creatinine 0.50 L (0.6-1.2) mg/dl Glucose 99 (70-99(Fasting)) mg/dl Calcium 9.3 (8.6-10.3) mg/dl AST TNP 14 ALT 13 (7-52) U/L Alkaline Phosphatase 58 (34-104) U/L Total Protein 7.3 (6.0-8.3) gm/dl Albumin 4.0 (3.4-5.0) gm/dl Intake and Output 04/18/23 04/18/23 04/18/23 06:59 14:59 22:59 Intake Total 1180 / 1180 Balance 1180 / 1180 Intake: IV 1180 / 1180 Sodium Chloride 0.9% 500 ml @ 1000 / 1000 999 mls/hr IV [facility] Rx#: [id number] cefTRIAXone SODIUM 2,000 mg In 70 / 70 70 ml @ 140 mls/hr IV NOW STA Rx#:[id number] levETIRAcetam 1,000 mg In 0.9 % 110 / 110 Sodium Chloride 100 ml @ 440 mls/hr IV NOW STA Rx#:[id number] Other: Weight 104.2 kg 104.2 kg Weight Measurement Method Built in [facility] Built in [facility] Patient Weight 04/19/23 06:59 Weight 104.2 kg Diagnostic Findings EKG performed today 04/18/2023: Baseline artifact, sinus rhythm at 75 bpm. No significant repolarization changes. (1) Fall Encounter type: initial encounter Qualified Code(s): W19.XXXA - Unspecified fall, initial encounter (2) Syncope Syncope type: unspecified Qualified Code(s): R55 - Syncope and collapse
[2023-04-18] MEDS: ENOXAPARIN INJ 40 MG/0.4 ML SYR SQ SCH (17:24)
--- NOTE | 2023-04-18 18:11 | Electrocardiogram Report ---
Test Reason : Blood Pressure : / mmHG Vent. Rate : 075 BPM Atrial Rate : 075 BPM P-R Int : 190 ms QRS Dur : 074 ms QT Int : 394 ms P-R-T Axes : 028 012 016 degrees QTc Int : 439 ms Normal sinus rhythm Normal ECG When compared with ECG of 26-JAN-2023 19:38, No significant change was found Confirmed by Taurus Garcias ([id number]) on 04/18/2023 6:11:24 PM Referred By: REFERRED SELF Confirmed By:Carlito Garcias
[2023-04-18] MEDS ORDERED: GADOBUTROL 65ML VIAL IV ONE (19:36)
[2023-04-18] MEDS: DIVALPROEX EXTENDED RELEASE 500 MG TAB PO SCH (20:19)
[2023-04-18] MEDS: GABAPENTIN 300 MG CAP PO SCH (20:19)
[2023-04-18] MEDS: OXcarbazepine 150 MG TABLET PO SCH (20:19)
[2023-04-18] MEDS: levETIRAcetam 500 MG TAB PO SCH (20:19)
--- NOTE | 2023-04-18 20:19 | Magnetic Resonance Report ---
MRI OF THE BRAIN COMBO CLINICAL HISTORY: Syncope. COMPARISON STUDY: CT of the brain dated 04/18/2023. TECHNIQUE: MRI of the brain was performed utilizing various T1 and T2-weighted sequences in the axial , sagittal, and coronal planes. Contrast-enhanced sequences were acquired following the administratio n of 10.3 cc of Gadavist. FINDINGS: Brain parenchyma: There is age related cerebral change noting mild subcortical and periventricular mi croangiopathic disease. There is no hemorrhage or mass effect. There is no restricted diffusion to corrales ggest acute ischemia. No enhancing mass lesion is identified on the postcontrast images. Mendoza-white m atter differentiation is preserved. No extra-axial fluid collection is seen. The cerebellar tonsils a re normal in configuration. Ventricles, sulci, and cisterns: Prominent secondary to involutional change. Pituitary and sella: Unremarkable. Intracranial vasculature: Normal flow voids are maintained at the skull base. Orbits: The bony orbits are grossly intact. Orbital contents are normal in appearance noting bilatera l ocular lens implants. Sinuses and mastoids: Clear. Calvarium: Unremarkable. Cervical cord: Partially visualized cervical spinal cord is normal in morphology and signal intensity . IMPRESSION: No acute intracranial abnormality. ACT 112: Negative or not required by law. Electronically signed by: Janusz Casillas M.D. 04/18/2023 8:16 PM
[2023-04-19] MEDS: LEVOTHYROXINE SODIUM 75 MCG TABLET PO SCH (05:30)
[2023-04-19 06:22] LABS: Basophils # (auto) 0.04 K/uL (0.00-0.20); Eosinophils # (auto) 0.27 K/uL (0.00-0.50); Eosinophils % (auto) 6.5 %; Hematocrit (blood only) 40.1 % (37.0-47.0); Hemoglobin 13.7 g/dl (12.0-16.0); Immature Granulocytes # (auto) 0.01 K/uL (0.01-0.20); Immature Granulocytes % (auto) 0.2 %; Lymphocytes # (auto) 1.19 K/uL (1.20-3.40); Lymphocytes % (auto) 28.7 %; Mean Corpuscular Hemoglobin 32.2 pg (25.0-34.0); Mean Corpuscular Hgb Conc 34.2 g/dL (32.0-36.0); Mean Corpuscular Volume 94.4 fL (80.0-100.0); Mean Platelet Volume 9.6 fL (9.4-12.4); Monocytes # (auto) 0.49 K/uL (0.11-0.59); Monocytes % (auto) 11.8 %; Neutrophils # (auto) 2.15 K/uL (1.40-6.50); Neutrophils % (auto) 51.8 %; Platelet Count 216 K/uL (130-400); RDW Coefficient of Variation 12.6 % (11.5-14.5); RDW Standard Deviation 43.8 fL (36.4-46.3); Red Blood Count 4.25 M/uL (4.20-5.40); White Blood Count 4.15 K/ul (4.8-10.8)
[2023-04-19 06:38] LABS: BUN Creatinine Ratio 18.2 (10-20); Calcium 8.8 mg/dl (8.6-10.3); Creatinine Clr Calc Pharmacy 106.4 ml/min; Est GFR (African American) 109.4 ml/min; Est GFR (Non-African American) 94.4 ml/min; Potassium 3.8 mmol/L (3.5-5.1)
[2023-04-19] MEDS: CYANOCOBALAMIN (B-12) 500 MCG TABLET PO SCH (08:43)
[2023-04-19] MEDS ORDERED: LEVOTHYROXINE SODIUM 75 MCG TABLET PO SCH (09:00)
[2023-04-19] MEDS: levETIRAcetam 500 MG TAB PO SCH (09:54)
[2023-04-19] MEDS: OXcarbazepine 150 MG TABLET PO SCH ×2 (09:55→20:18)
[2023-04-19] MEDS: GABAPENTIN 300 MG CAP PO SCH ×2 (09:56→20:15)
--- NOTE | 2023-04-19 09:58 | Neurology Consultation ---
Date of Consultation April 19, 2023 Assessment & Plan (1) Fall: (2) Seizure disorder: Plan 72-year-old female with probable seizure disorder, characterized by occasional psychosensory aura and more frequent episodes of collapse with loss of consciousness. She has a loop recorder which has not revealed any associated cardiac dysrhythmia. I note that she has had several normal EEGs previously as well as an unrevealing brain MRI recently. She follows with a local [facility] neurology group and is prescribed divalproex, oxcarbazepine, and levetiracetam. Her valproic acid level is therapeutic. A levetiracetam has been ordered although results will not likely be available for several days. As I suspect her recent episode is most likely related to a breakthrough seizure, I would recommend increasing her dosage of levetiracetam to 750 mg twice daily. She should continue with oxcarbazepine and Depakote at the current dosages. Because the episodes appear to be refractory to 3 antiseizure medications, it may not be unreasonable for her to have an outpatient assessment for a vagal nerve stimulator with an epilepsy specialist at a tertiary center. Because she follows with a local [facility] neurology group, she could go to [facility] for this evaluation. She will otherwise continue to follow with her local [facility] neurologist, Dr. Lubin. History of Present Illness Reason for Consultation: seizure d/o, falls Requesting Physician: Chris Attending Physician: Patrick Pruitt MD History of Present Illness The patient is a 72-year-old female with a history of seizure disorder, she follows with the local [facility] neurology group. She began experiencing episodes of loss of consciousness and collapse about 4 years ago. She has also been experiencing transient spells or episodes of feeling strange with unusual sensations, but not clearly with associated lapse in awareness or consciousness. She has had extensive evaluations with neurology and cardiology previously, including several EEGs that have been normal, and a loop recorder that was recently interrogated, with no evidence of arrhythmia that have correlated with her loss of postural tone/collapse. She is currently prescribed oxcarbazepine, levetiracetam, and Depakote for presumed seizures. The patient presented to the emergency department yesterday morning after a similar episode of collapse, she was found on the floor, awoke on her back. She does not recall experiencing any aura or warning, other than everything going black. A CT of the head was negative for hemorrhage or acute process. A gadolinium-enhanced brain MRI, including seizure protocol, completed yesterday was negative for acute process. There is mild generalized atrophy, mild chronic small vessel ischemic disease, no mesial temporal sclerosis, no abnormal postcontrast enhancement. I independently reviewed these images. A valproic acid level was 84. A levetiracetam level is pending. The patient has poor recollection of her recent episode. She currently denies significant headache, neck pain, vision change, vertigo, or weakness. Allergies Allergy/AdvReac Type Severity Reaction Status Date / Time codeine Allergy Intermediate Rash Unverified 01/26/23 20:17 amoxicillin Allergy Rash Verified 01/26/23 20:17 Home Medications Medication Instructions Recorded Confirmed Type acetaminophen 500 mg tablet 1,000 mg PO Q6H PRN Pain 10/31/21 04/18/23 History (Tylenol Extra Strength) divalproex 500 mg tablet,extended 1,000 mg PO HS 10/31/21 04/18/23 History release 24 hr levetiracetam 500 mg tablet 500 mg PO BID 10/31/21 04/18/23 History levothyroxine 75 mcg tablet 75 mcg PO DAILY 10/31/21 04/18/23 History (Euthyrox) oxcarbazepine 150 mg tablet 450 mg PO BID 10/31/21 04/18/23 History gabapentin 300 mg capsule 300 mg PO BID 09/28/22 04/18/23 History cyanocobalamin (vitamin B-12) 1,000 mcg PO DAILY 01/26/23 04/18/23 History 1,000 mcg tablet (Vitamin B-12) glucosamine sulfate 750 mg tablet 750 mg PO DAILY 01/26/23 04/18/23 History Patient History Medical History Cancer SKIN CANCER Closed fibular fracture Compression fracture Deep vein thrombosis Hallucination Hallucinations (05/29/11) Hearing deficit Hypothyroidism Hypothyroidism On home oxygen therapy NC OXYGEN AT NIGHT (UNSURE OF LITER) Peripheral neuropathy Psychosis Pulmonary embolism Seizure LAST EPISODE (THIS YEAR/UNSURE OF DATE) ? SEIZURE TYPE>FOLLOWS WITH DR. PHOENIX. 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 Beliefs That Will Affect Care: None marital status: Current Living Situation: Spouse Current Living Situation Comment: Lives in independent living with How many Children do You have: 5 Feels Safe at Home: Yes Safety Concerns: Feels Safe At This Time Assistive Devices: Denture - Upper, Denture - Lower, Walker and Wheelchair Review of Systems Constitutional: no fever and no chills Eyes: no blind spots and no diplopia Ear, Nose, Mouth, Throat: no hearing loss Respiratory: no cough and no dyspnea Cardiovascular: no chest pain and no palpitations Gastrointestinal: no nausea and no vomiting Genitourinary: no dysuria and no urinary incontinence Musculoskeletal: no neck pain and no myalgia Integumentary: no rash and no lesions Neurologic: as per Subjective / HPI and + unsteadiness; no localized weakness, no tremor(s), no headache(s), no confusion and no memory loss Psychiatric: no depression and no anxiety Hematologic / Lymphatic: no easy bleeding and no easy bruising Exam (Neuro) Constitutional: well developed and well nourished; no acute distress Eyes: normal visual ruiz by confrontation, PERRL and EOM intact bilaterally Neurologic: Oriented to:: Person, Place and Time Memory: Short Term Intact and Remote Intact Attention: Span Intact and Concentration Intact Speech Fluency: negative Dysarthria or Dysfluency Fund of Knowledge: Current Events, Past History and Vocabulary Cranial Nerves: Normal II, III, IV, , V, VII, VIII, IX, X, XI and XII Motor Strength: Normal Lower Extremities and Normal Upper Extremities Motor Tone: Normal Lower Extremities and Normal Upper Extremities Muscle Bulk/Involuntary Movements: No Involuntary Movements; negative Muscle Atrophy Sensation: Light Touch Intact, Pain/Temperature Intact and Proprioception Intact Coordination: Normal; negative Dysdiadochokinesia, Finger-Nose Abnormal or Heel-Astudillo Abnormal Deep Tendon Reflexes: Rt Triceps: 2+, Lt Triceps: 2+, Rt Biceps: 2+, Lt Biceps: 2+, Rt Brachioradialis: 2+, Lt Brachioradialis: 2+, Rt Patellar: 2+, Lt Patellar: 2+, Rt Ankle: 1+ and Lt Ankle: 1+ Special Tests: negative Babinski Present Details: Gait not tested Results & Data Vital Signs (Past 12 Hours) Vital Signs Temp Pulse Resp BP Pulse Ox O2 Del Method 04/19/23 07:52 36.6 C 73 18 125/85 97 Room Air 04/19/23 04:02 36.5 C 65 20 126/85 96 Room Air 04/18/23 23:05 37.0 C 69 20 121/77 95 Room Air Laboratory Results WBC 4.15, hemoglobin 13.7, hematocrit 40.1, platelet count 216, sodium 137, potassium 3.8, BUN 10, creatinine 0.55, glucose 91, calcium 8.8, magnesium 1.9, AST 14, ALT 13, high-sensitivity troponin 3.3, vitamin B-12 410, TSH 4.006, valproic acid level 84, levetiracetam level pending. (An oxcarbazepine level from April 12, 2022 was 7.7.) Diagnostic Findings CT of the head and brain MRI are as described in the HPI. An echocardiogram reveals normal left ventricular wall thickness and motion, EF 55 to 60%, moderate aortic valve sclerosis, without significant stenosis, no ASD. Electrocardiogram reveals a normal sinus rhythm. An EEG completed at [facility] March 12, 2021 was normal. An EEG completed at [facility] November 13, 2020 was normal as well. PG Care Time/CCT Total # of Minutes Spent Total Time Spent with Patient: Total time spent is greater than 50% in coordination of care (as documented) at patient's floor/unit and/or counseling patient: Coding Level of Care Code 32422 INT INP/OBS CARE MIN Diagnoses Fall W19.XXXA Encounter type: initial encounter Seizure disorder G40.909 (1) Fall Encounter type: initial encounter Qualified Code(s): W19.XXXA - Unspecified fall, initial encounter
[2023-04-19] MEDS ORDERED: cefTRIAXone SODIUM 2,000 MG in DEXTROSE 5% 50 ML IV SCH (14:00)
[2023-04-19] MEDS: ENOXAPARIN INJ 40 MG/0.4 ML SYR SQ SCH (15:00)
--- NOTE | 2023-04-19 16:25 | Hospitalist Progress Note ---
Date of Service April 19, 2023 Assessment & Plan (1) Syncope: (2) Fall: (3) Acute UTI: (4) Back pain: (5) Apical ballooning syndrome: (6) Seizure disorder: (7) FORREST (obstructive sleep apnea): (8) History of pulmonary embolism: (9) Hypothyroidism: Plan Pt is a 72yoF with PMHx significant for epilepsy, HFrEF (EF 25-30%, TTE 2022), nonobstructive CAD, mild aortic stenosis, pulm HTN, hx PE DVT sp Eliquis, FORREST on CPAP, chronic hyponatremia, hypothyroidism, mood disorder, ambulatory dysfunction who presents after a syncopal episode at home. Syncope/Falls/Epilepsy Pt states that she was going to the bathroom on the morning of arrival when she had another episode where she completely blacked out and fell. Not the first time that this has happened. Chart review notes that she follows with Neurology for a Hx of epilepsy and son has cameras at home that record her having seizures and falling, sometimes due to medication noncompliance. Had a right tib-fib fracture after one of those falls earlier this year, managed conservatively with a boot. Followed with ortho. States on morning of arrival she was home alone when she passed out and pressed the life alert button once she came to. EMS brought her to the ED. Chart review notes Hx of previous loop recorder in 2021. Interrogated in October 2022 with no acute cause. 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 No significant valvular pathology. Last EF of 25-30%. ECHO this admission reviewed. Cardio evaled, appreciate recs. Follows closely with [facility], last visit on 03/17/[address] Shahram gilliam, epileptic medications adjusted. Head CT with no acute changes, MRI brain no acute findings. Imaging of the cervical, thoracic and lumbar spine with no acute fractures. Continue home Keppra, depakote and oxcarbazepine- valproic acid level wnl, keppra level pending. Neurology evaled, increase the dose of Keppra to 750 Mg twice daily. Continue with oxcarbazepine and Depakote. Outpatient assessment for a vagal nerve stimulator with an epilepsy specialist at a tertiary center. PT/OT UTI Pt notes some dysuria at presentation. UA suggestive of infection, urine Cx gram-negative baseline. Possible cause of this fall episode Rocephin treatment- narrow based on culture results Hypothyroidism- continue home levothyroxine DDD, neuropathy- continue home gabapentin B12 def- continue home supplement CODE STATUS: Full code DVT prophylaxis: Lovenox SQ Diet: HH, low sodium Dispo: PCU/tele, PT/OT, CM to assist with DC planning. Admission and Anticipated Discharge Date Admission Date: April 18, 2023 Subjective Patient was seen and examined at bedside Patient was lying in bed, on room air, resting comfortably, not in any acute distress. Patient reports eating okay and moving bowels okay. Patient reports burning while passing urine. Patient denies any further passing out or dizziness or lightheadedness. Patient denies any chest pain or belly pain. Physical Exam Physical Exam: General: Alert, oriented. No acute distress Skin: healed wound on LLE ankle Psych: Appropriate mood and affect Neuro: Difficulty with general movement in the bed HEENT: NC/AT CV: RRR Resp: Breath sounds clear but decreased bilaterally, no increased effort of breathing. Abdomen: Soft, nontender Extremities: trace edema in lower extremities bilaterally. Results & Data Results & Data Vital Signs (Past 12 Hours) Vital Signs Temp Pulse Pulse Resp BP Pulse Ox O2 Del Method 04/19/23 15:55 36.4 C L 72 18 111/76 94 Room Air 04/19/23 07:10 66 04/19/23 08:00 Room Air 04/19/23 07:52 36.6 C 73 18 125/85 97 Room Air (1) Syncope Syncope type: unspecified Qualified Code(s): R55 - Syncope and collapse (2) Fall Encounter type: initial encounter Qualified Code(s): W19.XXXA - Unspecified fall, initial encounter (4) Back pain Back pain laterality: midline Back pain location: thoracic back pain Chronicity: acute Qualified Code(s): M54.6 - Pain in thoracic spine
[2023-04-19] MEDS: DIVALPROEX EXTENDED RELEASE 500 MG TAB PO SCH (20:14)
[2023-04-19] MEDS: levETIRAcetam 250 MG TAB PO SCH (20:43)
[2023-04-19] MEDS: MICONAZOLE NITRATE POWDER 85 GM EXT SCH (21:08)
[2023-04-20] MEDS: LEVOTHYROXINE SODIUM 75 MCG TABLET PO SCH (05:51)
[2023-04-20 06:54] LABS: Basophils # (auto) 0.03 K/uL (0.00-0.20); Basophils % (auto) 0.6 %; Eosinophils # (auto) 0.25 K/uL (0.00-0.50); Eosinophils % (auto) 5.1 %; Hematocrit (blood only) 40.6 % (37.0-47.0); Immature Granulocytes # (auto) 0.02 K/uL (0.01-0.20); Immature Granulocytes % (auto) 0.4 %; Lymphocytes # (auto) 1.21 K/uL (1.20-3.40); Lymphocytes % (auto) 24.6 %; Mean Corpuscular Hgb Conc 34.5 g/dL (32.0-36.0); Mean Corpuscular Volume 92.9 fL (80.0-100.0); Mean Platelet Volume 9.8 fL (9.4-12.4); Monocytes # (auto) 0.64 K/uL (0.11-0.59); Neutrophils # (auto) 2.76 K/uL (1.40-6.50); Neutrophils % (auto) 56.3 %; Platelet Count 210 K/uL (130-400); RDW Coefficient of Variation 12.4 % (11.5-14.5); RDW Standard Deviation 42.8 fL (36.4-46.3); Red Blood Count 4.37 M/uL (4.20-5.40); White Blood Count 4.91 K/ul (4.8-10.8)
[2023-04-20 07:18] LABS: BUN Creatinine Ratio 28.3 (10-20); Calcium 8.7 mg/dl (8.6-10.3); Creatinine Clr Calc Pharmacy 127.2 ml/min; Est GFR (Non-African American) 100.1 ml/min; Magnesium 1.7 mg/dl (1.7-2.4); Phosphorus 3.6 mg/dl (2.5-4.9); Potassium 4.1 mmol/L (3.5-5.1)
[2023-04-20] MEDS: levETIRAcetam 250 MG TAB PO SCH (08:13)
[2023-04-20] MEDS: CYANOCOBALAMIN (B-12) 500 MCG TABLET PO SCH (08:14)
[2023-04-20] MEDS: MICONAZOLE NITRATE POWDER 85 GM EXT SCH (08:15)
[2023-04-20] MEDS: GABAPENTIN 300 MG CAP PO SCH (08:15)
[2023-04-20] MEDS: OXcarbazepine 150 MG TABLET PO SCH (08:16)
--- NOTE | 2023-04-20 12:52 | Discharge Summary ---
Date of Service April 20, 2023 Admission HPI Per Admitting Provider Pt is a 72yoF with PMHx significant for epilepsy, HFrEF (EF 25-30%, TTE 2022), nonobstructive CAD, mild aortic stenosis, pulm HTN, hx PE DVT sp Eliquis, FORREST on CPAP, chronic hyponatremia, hypothyroidism, mood disorder, ambulatory dysfunction who presents after a syncopal episode at home today. Hx obtained from the patient and [facility] and [facility] chart review. Pt states that she was going to the bathroom this morning when she had a syncopal episode. She describes it as completely blacking out and causing her to fall. She states that this is not the first time that this has happened. She describes a previous episode where she was on the ground for many hours. This prompted her to get a life alert button which she had today and pressed. She was brought to the ED by EMS as a result. EPIC Chart review also notes that she follows with Neurology for a Hx of epilepsy and son has cameras at home that record her having seizures and falling. Neurology notes cite some concern that these might be related to medi cation noncompliance. Pt states today that she believes it is due to being OVER medicated and wonders about polypharmacy with her seizure medications. EPIC chart review shows she is currently prescribed Keppra 500mg BID, Depakote ER 500mg, 2 tabs once daily and oxcarbazepine 150mg, 3tabs BID. Chart review notes Hx of previous loop recorder in 2021. Interrogated in October 2022 with no acute cause. Pt notes she has had a right tib-fib fracture after one of those falls earlier this year, managed conservatively with a boot. Followed with ortho. Denies SOB, chest pain, cough, congestion. However admits to some dysuria. ED Course: Head CT and cervical, thoracic, lumbar xrays with acute changes/fractures. Admission Exam Per Admitting Provider General: Alert, oriented. No acute distress Skin: healed wound on LLE ankle Psych: Appropriate mood and affect Neuro: Difficulty with general movement in the bed HEENT: NC/AT CV: RRR Resp: Breath sounds clear but decreased bilaterally, no increased effort of breathing. Abdomen: Soft, nontender Extremities: +++ edema in lower extremities bilaterally. Principal Diagnosis Syncope/fall/epilepsy Acute UTI Discharge Exam General: Alert, oriented. No acute distress Skin: healed wound on LLE ankle Psych: Appropriate mood and affect Neuro: Difficulty with general movement in the bed HEENT: NC/AT CV: RRR Resp: Breath sounds clear but decreased bilaterally, no increased effort of breathing. Abdomen: Soft, nontender Extremities: trace edema in lower extremities bilaterally. Discharge Data Allergies Allergy/AdvReac Type Severity Reaction Status Date / Time codeine Allergy Intermediate Rash Unverified 01/26/23 20:17 amoxicillin Allergy Rash Verified 01/26/23 20:17 Consultations 04/18/23 09:15 ED Decision to Admit Stat 04/18/23 14:02 Consult Neurology Routine 04/18/23 14:09 Consult Cardiology Routine Ordered Studies 04/18/23 06:53 CT lumbar spine wo con Stat CT thoracic spine wo con Stat 04/18/23 06:56 CT cervical spine wo con Stat CT head/brain wo con Stat 04/18/23 15:36 MRI Brain [MR brain wo/w con] Urgent Hospital Course (1) Syncope: (2) Fall: (3) Acute UTI: (4) Back pain: (5) Apical ballooning syndrome: (6) Seizure disorder: (7) FORREST (obstructive sleep apnea): (8) History of pulmonary embolism: (9) Hypothyroidism: Plan Pt is a 72yoF with PMHx significant for epilepsy, HFrEF (EF 25-30%, TTE 2022), nonobstructive CAD, mild aortic stenosis, pulm HTN, hx PE DVT sp Eliquis, FORREST on CPAP, chronic hyponatremia, hypothyroidism, mood disorder, ambulatory dysfunction who presents after a syncopal episode at home. Syncope/Falls/Epilepsy Pt states that she was going to the bathroom on the morning of arrival when she had another episode where she completely blacked out and fell. Not the first time that this has happened. Chart review notes that she follows with Neurology for a Hx of epilepsy and son has cameras at home that record her having seizures and falling, sometimes due to medication noncompliance. Had a right tib-fib fracture after one of those falls earlier this year, managed conservatively with a boot. Followed with ortho. States on morning of arrival she was home alone when she passed out and pressed the life alert button once she came to. EMS brought her to the ED. Chart review notes Hx of previous loop recorder in 2021. Interrogated in October 2022 with no acute cause. 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 No significant valvular pathology. Last EF of 25-30%. ECHO this admission reviewed. Cardio evaled, appreciate recs. Follows closely with [facility], last visit on 03/17/[address] Rudolph, epileptic medications adjusted. Head CT with no acute changes, MRI brain no acute findings. Imaging of the cervical, thoracic and lumbar spine with no acute fractures. Continue home Keppra, depakote and oxcarbazepine- valproic acid level wnl, keppra level pending. Neurology evaled, increase the dose of Keppra to 750 Mg twice daily. Continue with oxcarbazepine and Depakote. Outpatient assessment for a vagal nerve stimulator with an epilepsy specialist at a tertiary center. PT/OT, home with home health upon discharge. UTI Pt notes some dysuria at presentation. UA suggestive of infection, urine Cx gram-negative baseline. Possible cause of this fall episode Rocephin treatment- narrow based on culture results To p.o. antibiotics upon discharge to complete the course. Hypothyroidism- continue home levothyroxine DDD, neuropathy- continue home gabapentin B12 def- continue home supplement CODE STATUS: Full code DVT prophylaxis: Lovenox SQ Diet: HH, low sodium Dispo: PCU/tele, PT/OT, CM to assist with DC planning. Patient being discharged home with home health with following instruction at the point of discharge: Follow-up with your primary care physician within a week time and likely you will need labs CBC/CMP/magnesium/phosphorus. You were admitted for fall/syncope, there was a concern of seizure. Neurology evaluated you. Your Keppra dose has been increased to 750 mg twice a day. You are recommended to follow-up with your neurology in a month time & possible evaluation for vagal nerve stimulator with an epilepsy specialist at a tertiary center. Discuss with your neurology office to set up this evaluation. For your UTI, you will be discharged on antibiotic. Complete the course. Take your medications as prescribed. Please make sure that you are able to get your medications today by calling your pharmacy before you leave the hospital so that your treatment continuity is not broken. Home Health Attestation I certify that this patient is under my care and that I, or a physicians assistant paralegal working with me, had a face to-face encounter that meets the home health [id number] encounter requirements with this patient. The encounter with the patient was in whole, or in part, for the following medical condition, which is the primary reason for home health care (list medical condition): Syncope I certify that, based on my findings, the following services are medically necessary home health services: My clinical findings support the need for the above services because: OT Assess ADL Status and Restore Function w ADLs PT Assessment for Endurance / Balance / Strength PT Eval for Safety and Mobility PT Eval for Safety, Gait Training, Assistive Devices PT Gait and Balance Training, Strengthening and Safety Skilled Nsg Assessment Further, I certify that my clinical findings support that this patient is homebound (i.e. absences from home require considerable and taxing effort and are for medical reasons or latter-day services or infrequently or of short duration when for other reasons) because: Supportive Aid - Walker Certification for Home Health Services: Based on the above findings, I certify that this patient is confined to the home and needs intermittent correction care, physical therapy and/or speech therapy or continues to need occupational therapy. The patient is under my care, and I have initiated the establishment of the plan of care. This patient will be followed by a physician who will periodically review the plan of care. Total Time Total Time Spent Total Time Spent (In Minutes): 45 Discharge Plan Discharge Items Patient Disposition: Home - Home Health Services Reason For Visit: SYNCOPE Discharge Diagnosis: Syncope/fall/epilepsy Acute UTI Activity: As commented below Activity Comment: Continue with home health physical therapy and their recs. Non-emergency contact: Primary Care Provider Call non-emergency contact if: you have any medication questions, your symptoms worsen and your temperature is above 101 Follow-up/Referrals: Kiki Hay MD [Primary Care Provider] - Diet: Heart Healthy and Low Sodium (2gm) Addtl Attending Provider Instructions: Follow-up with your primary care physician within a week time and likely you will need labs CBC/CMP/magnesium/phosphorus. You were admitted for fall/syncope, there was a concern of seizure. Neurology evaluated you. Your Keppra dose has been increased to 750 mg twice a day. You are recommended to follow-up with your neurology in a month time & possible evaluation for vagal nerve stimulator with an epilepsy specialist at a tertiary center. Discuss with your neurology office to set up this evaluation. For your UTI, you will be discharged on antibiotic. Complete the course. Take your medications as prescribed. Please make sure that you are able to get your medications today by calling your pharmacy before you leave the hospital so that your treatment continuity is not broken. Pending Studies at Discharge: Yes Stand-Alone Forms: [facility], Smoking Cessation Medications and DC Order Prescriptions: New levetiracetam 750 mg tablet 750 mg PO BID Qty: 60 0RF cefdinir 300 mg capsule 300 mg PO BID 5 Days Qty: 10 0RF Continued oxcarbazepine 150 mg tablet 450 mg PO BID acetaminophen [Tylenol Extra Strength] 500 mg Tablet 1,000 mg PO Q6H PRN (Reason: Pain) levothyroxine [Euthyrox] 75 mcg tablet 75 mcg PO DAILY divalproex 500 mg tablet extended release 24 hr 1,000 mg PO HS gabapentin 300 mg capsule 300 mg PO BID cyanocobalamin (vitamin B-12) [Vitamin B-12] 1,000 mcg Tablet 1,000 mcg PO DAILY glucosamine sulfate 750 mg Tablet 750 mg PO DAILY Rx Instructions: administer with a meal Discontinued levetiracetam 500 mg tablet 500 mg PO BID Discharge Orders: Discharge Order (Routine); Ordered 04/20/23 Ordered By: Patrick Pruitt Admission Data Admit Date/Time: 04/18/23 10:43 Attending Provider: Patrick Pruitt Admit Provider: Odilia Perez Primary Care Provider: Kiki Hay Other Providers: Odilia Perez ; Michele Wong ; [facility]
== END 2023-04-20 14:30 | disposition home health service (06) | DRG 101 ==
LOC: ED 06:20 → SUATTDRO 10:43 → EDINP 10:43 → 2S 12:16

== ENCOUNTER 2023-11-04 15:20 | Inpatient (IN) ==
[2023-11-04 16:15] LABS: Basophils # (auto) 0.04 K/uL (0.00-0.20); Basophils % (auto) 0.8 %; Eosinophils # (auto) 0.14 K/uL (0.00-0.50); Eosinophils % (auto) 2.7 %; Hematocrit (blood only) 43.6 % (37.0-47.0); Hemoglobin 14.8 g/dl (12.0-16.0); Immature Granulocytes # (auto) 0.02 K/uL (0.01-0.20); Immature Granulocytes % (auto) 0.4 %; Lymphocytes # (auto) 1.07 K/uL (1.20-3.40); Lymphocytes % (auto) 20.4 %; Mean Corpuscular Hgb Conc 33.9 g/dL (32.0-36.0); Mean Corpuscular Volume 94.4 fL (80.0-100.0); Mean Platelet Volume 9.8 fL (9.4-12.4); Monocytes # (auto) 0.52 K/uL (0.11-0.59); Monocytes % (auto) 9.9 %; Neutrophils # (auto) 3.46 K/uL (1.40-6.50); Neutrophils % (auto) 65.8 %; Platelet Count 226 K/uL (130-400); RDW Coefficient of Variation 13.3 % (11.5-14.5); RDW Standard Deviation 46.2 fL (36.4-46.3); Red Blood Count 4.62 M/uL (4.20-5.40); White Blood Count 5.25 K/ul (4.8-10.8)
--- NOTE | 2023-11-04 16:18 | Emergency Department Note ---
History of Present Illness General Chief complaint: Fall Time Seen by Provider: 11/04/23 15:47 History of Present Illness 73-year-old female presents emergency department states that she was unable to get off the toilet today. Patient states yesterday she had taken a sleeping pill and she had fallen 2 times landing on her left side hitting her left ribs. Patient complains of left rib cage pain and states today that her knees are too weak to stand up. Patient denies any head trauma denies neck pain denies chest pain shortness of breath abdominal pain nausea vomiting states decreased p.o. intake. There are no other complaints. No other mitigating or alleviating factors Home Medications Medication Instructions Recorded Confirmed Type acetaminophen 500 mg tablet 500 mg PO Q6H PRN Pain 10/31/21 10/07/23 History (Tylenol Extra Strength) divalproex 500 mg tablet,extended 1,000 mg PO HS 10/31/21 10/07/23 History release 24 hr levothyroxine 75 mcg tablet 75 mcg PO DAILYBB 10/31/21 10/07/23 History (Euthyrox) oxcarbazepine 150 mg tablet 450 mg PO BID 10/31/21 10/07/23 History gabapentin 300 mg capsule 300 mg PO AMPM 09/28/22 10/07/23 History cyanocobalamin (vitamin B-12) 1,000 mcg PO QAM 01/26/23 10/07/23 History 1,000 mcg tablet (Vitamin B-12) glucosamine sulfate 750 mg tablet 750 mg PO DAILY 01/26/23 10/07/23 History levetiracetam 750 mg tablet 750 mg PO BID #60 tabs 04/20/23 10/07/23 Rx calcium citrate 315 mg-vitamin D3 1 tab PO QAM 10/07/23 10/07/23 History 5 mcg (200 unit) tablet cranberry 500 mg capsule 500 mg PO BID 10/07/23 10/07/23 History docusate sodium 100 mg tablet 100 mg PO BID 10/07/23 10/07/23 History fluticasone propionate 50 2 spray NA DAILY #16 grams 10/13/23 Rx mcg/actuation nasal spray,suspension Allergies Allergy/AdvReac Type Severity Reaction Status Date / Time amoxicillin Allergy Intermediate Rash Verified 11/04/23 18:55 codeine Allergy Intermediate Rash Verified 11/04/23 18:55 Past Med/Surg History Medical History Closed fibular fracture Compression fracture Witnessed seizure-like activity Seizure disorder Hypothyroidism Psychosis Hallucination Hypothyroidism Cancer SKIN CANCER Hearing deficit Peripheral neuropathy Seizure LAST EPISODE (THIS YEAR/UNSURE OF DATE) ? SEIZURE TYPE>FOLLOWS WITH DR. PHOENIX. OLD RECORDS NOTE EPILEPSY Deep vein thrombosis Pulmonary embolism On home oxygen therapy [place] OXYGEN AT NIGHT (UNSURE OF LITER) Sleep apnea NO DEVICE USED NOW (CPAP USED IN PAST) Hallucinations (05/29/11) Surgical History History of kyphoplasty History of bilateral tubal ligation History of colonoscopy History of tooth extraction History of tonsillectomy History of adenoidectomy Family History Mother Family hx of colon cancer Social History Smoking Status: Never smoker Second Hand Exposure: Yes (Family members smoked during childhood); Do You Dip or Chew Tobacco: No; Hx Alcohol Use: No Hx Substance Use: No Preferred Language: French Communication Ability: Effective Talent Development Specialist Required: No Beliefs That Will Affect Care: None marital status: Current Living Situation: Spouse Current Living Situation Comment: Lives in independent living with How many Children do You have: 5 Feels Safe at Home: Yes Assistive Devices: CPAP Review of Systems A total of 10 systems reviewed and were otherwise negative Constitutional: + weakness Cardiovascular: + chest pain Musculoskeletal: + joint pain Physical Exam Vital Signs Vital Signs - 24 hr 11/04/23 15:23 11/04/23 15:58 Temperature 36.9 C Temperature Source Oral Pulse Rate 77 75 Respiratory Rate 17 Blood Pressure 109/65 Blood Pressure Mean 79 Pulse Oximetry 94 Oxygen Delivery Method Room Air Sepsis Recent Fever Within 48 Hours No Sepsis New/Unexplained Change in Mental Status No Sepsis Action Taken by Nursing No Action Required GENERAL: Patient is awake alert in no acute distress patient is resting comfortably and showing no signs of anxiety EYES: The conjunctivae are clear. The pupils are round and reactive. EARS, NOSE, MOUTH AND THROAT: The nose is without any evidence of any deformity. Mucous membranes are moist. Tongue is midline. NECK: The neck is nontender and supple. RESPIRATORY: Normal respiratory effort is noted there is no evidence of wheezing rhonchi or rales CHEST: Mild tenderness to the left mid lateral thoracic rib cage. There is no obvious crepitance there is no significant deformity, there is no ecchymosis present CARDIOVASCULAR: Regular rate and rhythm noted there no murmurs rubs or gallops normal S1 normal S2. GASTROINTESTINAL: The abdomen is soft. Abdomen is nontender. PELVIS: The Pelvis is stable. No tenderness to palpation is noted. BACK: No midline tenderness or or step-off noted range of motion in flexion extension as well as rotation no signs of muscle spasm noted MUSCULOSKELETAL/EXTREMITIES: There is no evidence of gross deformity full range of motion is noted in the hips and shoulders. Patient has tenderness to the medial aspect of the right knee, patient is able to terminally extend, the patient is neurovascularly intact distally, the patient has bilateral lower extremity pitting edema SKIN: There is no obvious evidence of any rash. There are no petechiae, pallor or cyanosis noted. NEUROLOGIC: Patient is awake alert and oriented x3; patient is generally weak but able to move all 4 extremities Course Reevaluation(s) Reevaluation #1: Patient resting in no distress however unable to get out of bed due to weakness Time: 18:57 Consultations Consultation #1: [facility] Time: 18:45 Medical Decision Making Medical Records Attestation: I reviewed the patient's medical records. Home Medications Current Medication List: was personally reviewed by me Laboratory Data Attestation: I reviewed the patient's lab results. Labs interpreted by me are unremarkable 11/04/23 15:34 11/04/23 15:34 Lab Results 11/04/23 Range/Units 15:34 WBC 5.25 (4.8-10.8) K/ul RBC 4.62 (4.20-5.40) M/uL Hgb 14.8 (12.0-16.0) g/dl Hct 43.6 (37.0-47.0) % MCV 94.4 (80.0-100.0) fL MCH 32.0 (25.0-34.0) pg MCHC 33.9 (32.0-36.0) g/dL RDW Std Deviation 46.2 (36.4-46.3) fL RDW Coeff of Benigno 13.3 (11.5-14.5) % Plt Count 226 (130-400) K/uL MPV 9.8 (9.4-12.4) fL Immature Gran % (Auto) 0.4 % Neut % (Auto) 65.8 % Lymph % (Auto) 20.4 % [place] % (Auto) 9.9 % Eos % (Auto) 2.7 % Baso % (Auto) 0.8 % Neut # (Auto) 3.46 (1.40-6.50) K/uL Lymph # (Auto) 1.07 L (1.20-3.40) K/uL [place] # (Auto) 0.52 (0.11-0.59) K/uL Eos # (Auto) 0.14 (0.00-0.50) K/uL Baso # (Auto) 0.04 (0.00-0.20) K/uL Immature Gran # (Auto) 0.02 (0.01-0.20) K/uL PT 10.9 (9.0-12.0) Seconds INR 1.0 (0.9-1.1) Sodium 133 L (136-145) mmol/L Potassium 3.5 (3.5-5.1) mmol/L Chloride 98 (98-107) mmol/L Carbon Dioxide 27 (21-32) mmol/L Anion Gap 8 (3-11) BUN 10 (6-23) mg/dl Creatinine 0.51 L (0.6-1.2) mg/dl Est Cr Clr Drug Dosing 114.6 ml/min Est GFR ( Amer) 111.3 ml/min Est GFR (Non-Af Amer) 96.1 ml/min BUN/Creatinine Ratio 19.6 (10-20) Glucose 99 (70-99(Fasting)) mg/dl Calcium 9.6 (8.6-10.3) mg/dl Magnesium 1.9 (1.7-2.4) mg/dl Total Bilirubin 0.4 (0.2-1.0) mg/dl AST 12 L (13-39) U/L ALT 8 (7-52) U/L Alkaline Phosphatase 62 (34-104) U/L Troponin I High Sens 7.8 (0-14) pg/ml Total Protein 7.8 (6.0-8.3) gm/dl Albumin 4.3 (3.4-5.0) gm/dl Globulin 3.5 (2.5-4.0) gm/dl Albumin/Globulin Ratio 1.2 (0.9-2) TSH 2.480 (0.300-4.500) uIu/ml Imaging Data Attestation: I personally reviewed and interpreted this imaging study as follows: My Impression: Chest x-ray interpreted by me negative for infiltrate no obvious pneumothorax Radiologist's Impression: Chest X-Ray 11/04/23 15:51 XR chest 1V portable CLINICAL HISTORY: weakness TECHNIQUE: Single frontal radiograph of the chest was obtained. Comparison: Comparison is made to chest radiograph 10/12/2023 FINDINGS: No lines and tubes are seen. The cardiomediastinal silhouette is normal. The lungs are clear. No evidence of pleural effusion or pneumothorax. IMPRESSION: No acute chest disease. ACT 112: Negative or not required by law. Electronically signed by: Tenzin Hussein M.D. 11/04/2023 4:29 PM Knee X-Ray 11/04/23 16:04 RIGHT KNEE 3 VIEWS CLINICAL HISTORY: Fall. Right knee pain. FINDINGS: AP, crosstable lateral, and sunrise views of the right knee are compared to study dated 10/07/2023. The skeletal structures are osteopenic. No fracture is seen. There is moderate tricompartmental degenerative joint space narrowing. There are marginal osteophytes and patellar enthesophytes. A calcified fabella is incidentally noted. There is no significant joint effusion. Soft tissue swelling is seen around the knee. Bony overgrowth is noted along the anterior tibial tuberosity. IMPRESSION: 1. Soft tissue swelling with no fracture identified. 2. Osteopenia and degenerative change as above. Electronically signed by: Janusz Casillas M.D. 11/04/2023 4:32 PM ECG Data Attestation: I personally reviewed and interpreted this ECG as follows: Additional Comments: EKG interpreted by me sinus rhythm first-degree AV block rate of 70, poor R wave progression, no obvious ST segment elevation or depression, normal axis Telemetry was ordered by me, interpreted as normal sinus rhythm rate of 70 MDM Narrative Medical decision making differential diagnosis includes rib fracture, rib strain, pneumothorax, right knee injury, metabolic derangement,, electrolyte abnormality Plan is to check labs, EKG, chest x-ray, right knee x-ray Patient has normal labs, normal chest x-ray, normal right knee x-rays. We did try to ambulate the patient and the nursing staff states that the patient literally could not get out of the bed due to generalized weakness. Case was discussed with the [facility] hospitalist for admission for weakness Impression & Plan Weakness, Fall, Acute knee pain, Contusion of rib on left side Discharge Plan Visit Data Chief Complaint: Fall ED Provider: Israel Estrada Discharge Problem: Weakness, Fall, Acute knee pain, Contusion of rib on left side Patient Disposition: Admitted As Inpatient Forms Stand Alone Forms: My [facility] Prescriptions Prescriptions: No Action oxcarbazepine 150 mg tablet 450 mg PO BID acetaminophen [Tylenol Extra Strength] 500 mg Tablet 500 mg PO Q6H PRN (Reason: Pain) levothyroxine [Euthyrox] 75 mcg tablet 75 mcg PO DAILYBB divalproex 500 mg tablet extended release 24 hr 1,000 mg PO HS gabapentin 300 mg capsule 300 mg PO AMPM cyanocobalamin (vitamin B-12) [Vitamin B-12] 1,000 mcg Tablet 1,000 mcg PO QAM glucosamine sulfate 750 mg Tablet 750 mg PO DAILY Rx Instructions: administer with a meal levetiracetam 750 mg tablet 750 mg PO BID Qty: 60 0RF Benefiber Sugar Free (dextrin) 1 gram Tablet,Chewable 1 tab PO QAM Rx Instructions: chew thoroughly before swallowing; do not swallow whole docusate sodium 100 mg Tablet 100 mg PO BID cranberry 500 mg Capsule 500 mg PO BID Rx Instructions: administer with meals calcium citrate-vitamin D3 315 mg-5 mcg (200 unit) Tablet 1 tab PO QAM fluticasone propionate 50 mcg/actuation [place],Suspension 2 spray NA DAILY Qty: 16 0RF Referrals Referrals: Kiki Hay MD [Primary Care Provider] -
--- NOTE | 2023-11-04 16:30 | XRay Report ---
XR chest 1V portable CLINICAL HISTORY: weakness TECHNIQUE: Single frontal radiograph of the chest was obtained. Comparison: Comparison is made to chest radiograph 10/12/2023 FINDINGS: No lines and tubes are seen. The cardiomediastinal silhouette is normal. The lungs are clear. No evid ence of pleural effusion or pneumothorax. IMPRESSION: No acute chest disease. ACT 112: Negative or not required by law. Electronically signed by: Tenzin Hussein M.D. 11/04/2023 4:29 PM
[2023-11-04 16:32] LABS: Albumin Globulin Ratio 1.2 (0.9-2); Albumin Level 4.3 gm/dl (3.4-5.0); BUN Creatinine Ratio 19.6 (10-20); Bilirubin,Total 0.4 mg/dl (0.2-1.0); Calcium 9.6 mg/dl (8.6-10.3); Creatinine Clr Calc Pharmacy 114.6 ml/min; Est GFR (African American) 111.3 ml/min; Est GFR (Non-African American) 96.1 ml/min; Globulin 3.5 gm/dl (2.5-4.0); Magnesium 1.9 mg/dl (1.7-2.4); Potassium 3.5 mmol/L (3.5-5.1); Total Protein 7.8 gm/dl (6.0-8.3)
[2023-11-04 16:33] LABS: Prothrombin Time 10.9 Seconds (9.0-12.0)
--- NOTE | 2023-11-04 16:34 | XRay Report ---
RIGHT KNEE 3 VIEWS CLINICAL HISTORY: Fall. Right knee pain. FINDINGS: AP, crosstable lateral, and sunrise views of the right knee are compared to study dated 09/12. The skeletal structures are osteopenic. No fracture is seen. There is moderate tricompartment al degenerative joint space narrowing. There are marginal osteophytes and patellar enthesophytes. A c alcified fabella is incidentally noted. There is no significant joint effusion. Soft tissue swelling is seen around the knee. Bony overgrowth is noted along the anterior tibial tuberosity. IMPRESSION: 1. Soft tissue swelling with no fracture identified. 2. Osteopenia and degenerative change as above. Electronically signed by: Janusz Casillas M.D. 11/04/2023 4:32 PM
[2023-11-04 16:38] LABS: Troponin I High Sensitivity 7.8 pg/ml (0-14)
[2023-11-04 16:47] LABS: Thyroid Stimulating Hormone 2.48 uIu/ml (0.300-4.500)
--- NOTE | 2023-11-04 19:43 | History & Physical Report ---
Date of Service November 04, 2023 Assessment & Plan (1) Fall: (2) Acute knee pain: Plan: 74-year-old female with history of epilepsy, heart failure with reduced ejection fraction EF 25 to 30%, nonobstructive CAD, mild aortic stenosis, Pulmonary hypertension, PE and DVT, obstructive sleep apnea, mood disorder, hypothyroidism etc. presenting with an episode of loss of coordination, fall. STATUS POST FALL, EPISODE OF LOSS OF COORDINATION AMBULATORY DYSFUNCTION Patient took a sleep aid the night before this event, likely contributing to fall and loss coordination However still need to rule out acute CVA, check brain MRI without contrast Check bilateral hip and pelvis to rule out fractures PT OT evaluation after imaging studies rule out fractures May need to transition to acute rehab ACUTE ON CHRONIC BILATERAL KNEE PAIN Status post fall Likely secondary to osteoarthritis Rule out fractures, check CT bilateral knees History of seizure disorder Continue usual antiepileptic drugs Heart failure with reduced ejection fraction Euvolemic Nonobstructive CAD No cardiac symptoms Mild aortic stenosis Pulmonary hypertension History of PE and DVT Not on anticoagulation DVT prophylaxis with Lovenox and heparin after brain MRI Obstructive sleep apnea On CPAP Mood disorder Hypothyroidism Full code as per patient Disposition May need to transition to acute rehab. plan of care discussed with patient in detail and at length all questions answered she is understanding, agreeable, comfortable with the plan of care History of Present Illness Primary Care Provider: Kiki Hay MD 74-year-old female with history of epilepsy, heart failure with reduced ejection fraction EF 25 to 30%, nonobstructive CAD, mild aortic stenosis, Pulmonary hypertension, PE and DVT, obstructive sleep apnea, mood disorder, hypothyroid etc. presenting with an episode of loss of coordination, fall. Patient was recently admitted to [facility] this month for acute exacerbation of CHF, and COVID-19 infection. She was discharged to home. She was doing fine until 2 nights ago when patient took a "" sleeping pill" that she was able to obtain from a family member, patient does not remember the exact name. Yesterday, around 5 AM, the patient woke up to use the bathroom, but felt that she was not walking right, "uncoordinated ". While walking back to her bed, patient subsequently fell landing on her buttocks. She called her to help her get up. Patient was fine throughout the rest of the day. Today, by climbing up the stairs, patient felt that her knees were giving out but was able to make it to the lift chair, reached the second floor and was able to walk to the bathroom to use the toilet. While getting up from the toilet seat, the patient felt that her knees were giving out again and could not get up on her own. She decided to call EMT. At the ER, patient's knee x-ray showed soft tissue swelling of the right knee. On exam, patient was seen resting in bed, comfortable, not in distress. Reports bilateral knee pain chronic but progressively getting worse as per patient. She has some buttock pain but no back pain, leg weakness or numbness. She denies having any other pain in her body. Denies chest pain, palpitations, shortness of breath, dizziness, etc. Allergies Allergy/AdvReac Type Severity Reaction Status Date / Time amoxicillin Allergy Intermediate Rash Verified 11/04/23 18:55 codeine Allergy Intermediate Rash Verified 11/04/23 18:55 Home Medications Medication Instructions Recorded Confirmed Type acetaminophen 500 mg tablet 500 mg PO Q6H PRN Pain 10/31/21 11/04/23 History (Tylenol Extra Strength) divalproex 500 mg tablet,extended 1,000 mg PO HS 10/31/21 11/04/23 History release 24 hr levothyroxine 75 mcg tablet 75 mcg PO DAILYBB 10/31/21 11/04/23 History (Euthyrox) oxcarbazepine 150 mg tablet 450 mg PO BID 10/31/21 11/04/23 History gabapentin 300 mg capsule 300 mg PO AMPM 09/28/22 11/04/23 History cyanocobalamin (vitamin B-12) 1,000 mcg PO QAM 01/26/23 11/04/23 History 1,000 mcg tablet (Vitamin B-12) glucosamine sulfate 750 mg tablet 750 mg PO DAILY 01/26/23 11/04/23 History levetiracetam 750 mg tablet 750 mg PO BID #60 tabs 04/20/23 11/04/23 Rx calcium citrate 315 mg-vitamin D3 1 tab PO QAM 10/07/23 11/04/23 History 5 mcg (200 unit) tablet cranberry 500 mg capsule 500 mg PO BID 10/07/23 11/04/23 History docusate sodium 100 mg tablet 100 mg PO BID 10/07/23 11/04/23 History fluticasone propionate 50 2 spray NA DAILY #16 grams 10/13/23 11/04/23 Rx mcg/actuation nasal spray,suspension Past Med/Surg History Medical History Closed fibular fracture Compression fracture Witnessed seizure-like activity Seizure disorder Hypothyroidism Psychosis Hallucination Hypothyroidism Cancer SKIN CANCER Hearing deficit Peripheral neuropathy Seizure LAST EPISODE (THIS YEAR/UNSURE OF DATE) ? SEIZURE TYPE>FOLLOWS WITH DR. PHOENIX. OLD RECORDS NOTE EPILEPSY Deep vein thrombosis Pulmonary embolism On home oxygen therapy [place] OXYGEN AT NIGHT (UNSURE OF LITER) Sleep apnea NO DEVICE USED NOW (CPAP USED IN PAST) Hallucinations (05/29/11) Surgical History History of kyphoplasty History of bilateral tubal ligation History of colonoscopy History of tooth extraction History of tonsillectomy History of adenoidectomy Family History Mother Family hx of colon cancer Social History Smoking Status: Never smoker Second Hand Exposure: Yes (Family members smoked during childhood); Do You Dip or Chew Tobacco: No; Hx Alcohol Use: No Hx Substance Use: No Preferred Language: Portuguese Communication Ability: Effective Dental Front Office Assistant Required: No Beliefs That Will Affect Care: None marital status: Current Living Situation: Spouse Current Living Situation Comment: Lives in independent living with How many Children do You have: 5 Feels Safe at Home: Yes Assistive Devices: CPAP Review of Systems Review of Systems: all noted and negative except for above Physical Exam Physical Exam: General- oriented x 3, not in distress, speaks in sentences with no effort or a ccessory muscle use Head- atraumatic Eyes- PERRL, EOMI, anicteric ENT- oropharynx clear Neck- supple, no JVD, no adenopathy, no thyromegaly; carotids +2/2, no bruits appreciated Lungs- clear to auscultation bilaterally, no rales/wheezes Heart- normal rate, regular rhythm; no murmur, no gallop, no rub appreciated Abdomen- normal bowel sounds, nondistended, soft, nontender, no masses or hep atosplenomegaly Extremities- no pretibial edema, no calf tenderness; peripheral pulses intact Bilateral knees:(+) Mild edema, mild tenderness, no erythema, no warmth, full range of motion due to pain Neuro- alert, oriented x 3; CN 2-12 grossly intact; motor 5/5 bilaterally;sensation 100% on all extremities; no other gross focal neurologic deficits Skin- warm & dry Results & Data Results & Data Vital Signs (Past 12 Hours) Vital Signs Temp Pulse Resp BP Pulse Ox O2 Del Method 11/04/23 19:10 135/82 11/04/23 19:10 68 18 96 11/04/23 19:00 74 18 96 11/04/23 18:30 69 22 98 11/04/23 18:00 69 15 97 11/04/23 17:30 68 12 97 11/04/23 17:00 65 14 94 11/04/23 16:30 69 14 95 11/04/23 16:00 72 15 98 11/04/23 15:58 75 11/04/23 15:51 97 Room Air 11/04/23 15:40 75 14 93 11/04/23 15:23 36.9 C 77 17 109/65 94 Room Air Code Status & VTE Plan VTE Prophylaxis Plan VTE Prophylaxis will be ordered: Yes
[2023-11-04 20:11] LABS: Influenza A virus by PCR Negative (Neg); Influenza B virus by PCR Negative (Neg); RSV by PCR Negative (Neg); SARS CoV2 RNA(COVID-19) Ceph NEGATIVE (Negative)
--- NOTE | 2023-11-04 20:41 | CT Scan Report ---
Exam(s): CT LEFT KNEE Without Contrast EXAM: CT Left Lower Extremity Without Intravenous Contrast, Knee CLINICAL HISTORY: Reason for exam: fall, pain, r/o fracture. TECHNIQUE: Axial computed tomography images of the left knee without intravenous contrast. CTDI is 24.91 mGy and DLP is 565.26 mGy-cm. Automated exposure control was utilized for the study. A dose lowering technique was utilized adhering to the principles of ALARA. COMPARISON: No relevant prior studies available. FINDINGS: No acute fracture. The bones are osteopenic. Mild to moderate tricompartmental osteoarthritis. Trace joint effusion. Mitchell's cyst present. No dislocation. IMPRESSION: No acute fracture. Electronically signed by: Finn Murphy MD 11/04/23 20:40 PM
--- NOTE | 2023-11-04 20:45 | CT Scan Report ---
Exam(s): CT PELVIS Without Contrast EXAM: CT Pelvis Without Intravenous Contrast CLINICAL HISTORY: Reason for exam: fall, pain, r/o fracture. TECHNIQUE: Axial computed tomography images of the pelvis without intravenous contrast. CTDI is 36.69 mGy and DLP is 862.15 mGy-cm. Automated exposure control was utilized for the study. A dose lowering technique was utilized adhering to the principles of ALARA. COMPARISON: No relevant prior studies available. FINDINGS: Intraperitoneal space: Unremarkable. No free air. No significant fluid collection. Bladder: Unremarkable. Bones/joints: No acute fracture. Chronic appearing fracture deformities at L3 and L4. At least moderate degenerative changes within the lumbar spine. Degenerative changes also present at the pubic symphysis and SI joints. Hip joint spaces are preserved. No joint effusion. No dislocation. Soft tissues: Unremarkable. IMPRESSION: No acute fracture. Electronically signed by: Finn Murphy MD 11/04/23 20:44 PM
--- NOTE | 2023-11-04 20:47 | CT Scan Report ---
Exam(s): CT LEFT HIP Without Contrast EXAM: CT Left Lower Extremity Without Intravenous Contrast, Hip CLINICAL HISTORY: Reason for exam: fall, pain, r/o fracture. TECHNIQUE: Axial computed tomography images of the left hip without intravenous contrast. CTDI is 37 mGy and DLP is 166.35 mGy-cm. Automated exposure control was utilized for the study. A dose lowering technique was utilized adhering to the principles of ALARA. COMPARISON: No relevant prior studies available. FINDINGS: Bones/joints: No acute fracture or malalignment. Left hip joint space is preserved. No joint effusion. Degenerative changes at the pubic symphysis and left SI joint. Soft tissues: Unremarkable. IMPRESSION: No acute fracture or malalignment. Electronically signed by: Finn Murphy MD 11/04/23 20:46 PM
--- NOTE | 2023-11-04 20:49 | CT Scan Report ---
Exam(s): CT RIGHT KNEE Without Contrast EXAM: CT Right Lower Extremity Without Intravenous Contrast, Knee CLINICAL HISTORY: Reason for exam: fall, pain, r/o fracture. TECHNIQUE: Axial computed tomography images of the right knee without intravenous contrast. CTDI is 24.91 mGy and DLP is 565.26 mGy-cm. Automated exposure control was utilized for the study. A dose lowering technique was utilized adhering to the principles of ALARA. COMPARISON: No relevant prior studies available. FINDINGS: Bones/joints: No acute fracture. Moderate to severe tricompartmental osteoarthritis most pronounced in the patellofemoral compartment. Trace joint effusion. No dislocation. Soft tissues: Unremarkable. IMPRESSION: 1. No acute fracture. 2. Moderate to severe tricompartmental osteoarthritis most pronounced in the patellofemoral compartment. Electronically signed by: Finn Murphy MD 11/04/23 20:48 PM
[2023-11-04] MEDS ORDERED: NON-FORMULARY MEDICATION (Cranberry 500 mg Capsule) PO SCH (22:15)
--- NOTE | 2023-11-04 22:58 | Magnetic Resonance Report ---
Exam(s): MRI HEAD Without Contrast EXAM: MR Head Without Intravenous Contrast CLINICAL HISTORY: Reason for exam: fall, loss of balance, r/o CVA. TECHNIQUE: Magnetic resonance images of the head/brain without intravenous contrast in multiple planes. COMPARISON: Head CT October 07, 2023 FINDINGS: Brain: Global parenchymal atrophy. No restricted diffusion. No intracranial hemorrhage, mass-effect, or cerebral edema. Ventricles: Unremarkable. No ventriculomegaly. Bones/joints: Unremarkable. No acute fracture. Sinuses: Unremarkable as visualized. No acute sinusitis. Mastoid air cells: Unremarkable as visualized. No mastoid effusion. Orbits: Unremarkable as visualized. IMPRESSION: No acute abnormality. Electronically signed by: Finn Murphy MD 11/04/23 22:57 PM
[2023-11-04] MEDS: DIVALPROEX EXTENDED RELEASE 500 MG TAB PO SCH (23:58)
[2023-11-04] MEDS: OXcarbazepine 150 MG TABLET PO SCH (23:58)
[2023-11-04] MEDS: GABAPENTIN 300 MG CAP PO SCH (23:58)
[2023-11-04] MEDS: DOCUSATE SODIUM 100 MG CAP PO SCH (23:58)
[2023-11-04] MEDS: levETIRAcetam 250 MG TAB PO SCH (23:58)
--- NOTE | 2023-11-05 00:20 | CT Scan Report ---
Exam(s): CT RIGHT HIP Without Contrast EXAM: CT Right Lower Extremity Without Intravenous Contrast, Hip CLINICAL HISTORY: Reason for exam: fall, pain, r/o fracture. TECHNIQUE: Axial computed tomography images of the right hip without intravenous contrast. CTDI is 38 mGy and DLP is 988 mGy-cm. Automated exposure control was utilized for the study. A dose lowering technique was utilized adhering to the principles of ALARA. COMPARISON: No relevant prior studies available. FINDINGS: Bones/joints: No acute fracture or malalignment. Soft tissues: Unremarkable. IMPRESSION: No acute fracture or malalignment. Electronically signed by: Finn Murphy MD 11/05/23 00:19 AM
[2023-11-05] MEDS: LEVOTHYROXINE SODIUM 75 MCG TABLET PO SCH (06:19)
--- OUTSIDE RECORDS SUMMARY | 2023-11-05 06:53 | External Medical Summary | Summary of Care ---
Author Name Unknown Organization [facility] Address [address] [place] [address] Phone [phone] Care Team Providers Care Litigation Assistant Name Role Phone Kiki Hay MD Primary Care Provider [phone] Reason for Referral * Evaluate & Treat - Unlimited Visits (Within 30 days (routine)) - Authorized Specialty Diagnoses / Procedures Referred By Contac t Referred To Contact Physical Therapy / Physical Medicine And Rehab Diagnoses Generalized weakness Kiki Hay MD [address] [facility] [place] [phone] Referral ID Status Reason Start Date Expiration Date Visits Requested Visits Authorized [id number] Authorized Specialty Services Required 11/04/[phone] Question Answer Referral Priority Within 30 days (routine) Where should this appointment be scheduled? External Reason for Visit * Reason Onset Date Comments Advice 11/04/2023 Referral 11/04/2023 Physical Therapy Fax 11/04/2023 Encounter Details Date Type Department Care Team (Late st Contact Info) Description 11/04/2023 Telephone General Internal Medicine State Cecilia Mchugh [address] [facility] [place] [phone] Kiki Hay MD [address] [facility] [place] [phone] Advice; Referral (Physical Therapy); Fax (... Allergies Active Allergy Reactions Criticality Noted Date Comments Acetaminophen-Codeine Other (Please comment) 12/02/2013 Patient reports Tylenol #3 caused increased seizure activity Amoxicillin 04/20/1999 rash, nausea Codeine 07/26/2021 Other reaction(s): Unknown documented as of this encounter (statuses as of 11/04/2023) Medications Medication Sig Dispensed Refills Start Date End Date Status Acetaminophen 500 MG Oral Tablet Take 1 Tablet by mouth every 6 hours as needed for Pain. 0 Active MEDICAL INSTRUCTIONS Stairlift needed for Sintia Shah, 1950. Kyle Customer Number: [id number] 1 Each 1 05/21/2021 Active Multivitamin Adult Oral Tablet Take by mouth 1 Tablet daily . 0 Active Calcium Citrate-Vitamin D 315-5 MG-MCG Oral Tablet Take 1 Tablet by mouth in the morning. 0 Active B-12 1000 MCG Oral TabletIndications:B 12 deficiency Take 1,000 mcg by mouth in the morning. 90 Tablet 3 09/27/2022 Active Cranberry 500 MG Oral Capsule Take 1 Capsule by mouth in the morning and 1 Capsule before bedtime. 0 Active Levothyroxine Sodium 75 MCG Oral Tablet (Euthyrox) Take 1 Tablet by mouth daily first thing in the morning. 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 60 Tablet 5 05/14/2023 Active Docusate Sodium 100 MG Oral Capsule (Colace) Take 1 Capsule by mouth in the morning and 1 Capsule before bedtime. 10 Capsule 0 05/29/2023 Active Gabapentin 300 MG Oral Capsule (Neurontin)Indicati ons:Lumbar degenerative disc disease Take 1 Capsule by mouth in the morning and 1 Capsule in the evening. 180 Capsule 3 06/09/2023 Active Benefiber Oral Tablet Chewable Take 1 Tablet by mouth in the morning. 0 06/13/2023 Active Alendronate Sodium 70 MG Oral Tablet (Fosamax)Indication s:Age-related osteoporosis with current pathological fracture with routine healing, subsequent encounter Take 1 Tablet by mouth once a week. with 8 oz. water 30 minutes before first meal of the day. Remain upright for 30 min after taking tablet 15 Tablet 3 06/16/2023 Active Additional Information Patient not taking.Reported on 10/31/2023 Fluticasone Propionate 50 MCG/ACT Nasal Suspension (Flonase) Administer 2 Sprays into nostril in the morning. 0 10/14/2023 Active Benefiber Oral PowderIndications:C onstipation, unspecified constipation type Take 1 Tbsf in a glass of water daily 0 10/28/2023 Active Aspirin 81 MG Oral Tablet Delayed Release Take 1 Tablet by mouth in the morning. 0 10/28/2023 Active ProAir HFA 108 (90 Base) MCG/ACT Inhalation Aerosol SolutionIndications :Bronchitis due to COVID-19 virus Inhale 2 Puffs by mouth every 4 hours as needed for Wheezing. 18 g 1 10/28/2023 Active Spacer/Aero-Holding Chambers DeviceIndications:B ronchitis due to COVID-19 virus Use with inhaler. 1 Each 0 10/28/2023 Active documented as of this encounter (statuses as of 11/04/2023) Active Problems Problem Noted Date Diagnosed Date Closed wedge compression fracture of T6 vertebra 05/27/2023 Cognitive change 10/26/2022 At risk for falls 10/26/2022 JUSTIN (generalized anxiety disorder) 10/26/2022 Coronary artery disease invo [place]ving [place] coronary artery of [place] heart without angina pectoris 12/15/2021 Diastolic dysfunction 11/20/2020 History of nonmelanoma skin cancer 06/09/2018 Overview: BCC right upper arm 08/26 FORREST on CPAP 02/24/2018 History of DVT (deep vein thrombosis) 04/08/2015 Venous insufficiency 04/08/2015 Nocturnal hypoxemia 11/09/2014 Syncope 09/02/2014 Lumbar degenerative disc disease 12/16/2013 B12 deficiency 05/01/2012 Hypothyroidism 10/30/2011 History of pulmonary embolism 05/01/2011 Non-toxic multinodular goiter 11/22/2007 EPILEPSY;NONCONV,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 SUMMARY: Goal: Establish test characteristics (sensitivity, specificity, PPV, NPV) of a circulating tumor DNA (ctDNA)-based test for cancer. Hypothesis: Circulating tumor DNA (ctDNA) and elevated protein biomarkers (together, the marker panel) can be detected in asymptomatic individuals with early cancer. Specific Aim 1: Determine the prevalence of a positive marker panel test in a prospective clinical cohort of 10,000 asymptomatic women ages 65 to 75 years. Specific Aim 2: Determine the sensitivity, specificity, positive predictive value (PPV) and negative predictive value (NPV) of a marker panel test to identify histologically proven cancers that develop within 5-years of the marker panel evaluation. CONTACTS: During normal business hours, contact study staff at ; after hours Geothermal System Installer via the [facility] hospital thermal cutting tracer machine operator . Please contact study team before resolving/deleting from patients problem list. Study phone number: [phone]. Diagnosis changed due to Research Module. Go to Snapshot for study details. Encounter for examination fo r normal comparison and control in clinical research program 10/12/2018 04/11/2022 Overview: DO NOT DELETE - [facility] DETECT Study: Project # [id number], Geothermal System Installer: Andi White, MS, MPH. SUMMARY: Goal: Establish test characteristics (sensitivity, specificity, PPV, NPV) of a circulating tumor DNA (ctDNA)-based test for cancer. - Hypothesis: Circulating tumor DNA (ctDNA) and elevated protein biomarkers (together, the marker panel) can be detected in asymptomatic individuals with early cancer. - Specific Aim 1: Determine the prevalence of a positive marker panel test in a prospective clinical cohort of 10,000 asymptomatic women ages 65 to 75 years. - Specific Aim 2: Determine the sensitivity, specificity, positive predictive value (PPV) and negative predictive value (NPV) of a marker panel test to identify histologically proven cancers that develop within 5-years of the marker panel evaluation. - CONTACTS: During normal business hours, contact study staff at ; after hours Geothermal System Installer via the [facility] hospital thermal cutting tracer machine operator . - Please contact study team before resolving/deleting from patients problem list. Study phone number: [phone]. Diagnosis changed due to Research Module. Go to Snapshot for study details. Body mass index (BMI) of 40. 0 to 44.9 in adult 09/23/2017 09/27/2022 Overview: Per Obesity protocol #1 History of nonmelanoma skin cancer 05/05/2017 05/06/2017 Overview: BCC right upper arm 08/26 Venous ulcer of ankle 04/08/20152016 Chronic ulcer of ankle 04/08/201502/26 Chronic anticoagulation 04/08/201509/11 Chronic rhinitis 10/30/2011 05/06/2017 Edema 03/28/2010 05/06/2017 Major depressive disorder, s casie episode, severe, with psychosis 09/06/2009 09/03/2017 Overview: Dr. Lawrence Dx per [facility] records. 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 Dermatophytosis of nail 05/24/2003 11/0 08/2010 documented as of this encounter (statuses as of 11/04/2023) Immunizations Name Administration Dates Next Due COVID-19 mRNA, LNP-s, No Pre serve, 2-Dose Series (Presentain) 11/09/2020,10/19/2020 Pneumococcal Conjugate Vacc, 13 Valent (Prevnar) 02/26/2017 Pneumococcal Polysaccharide PPV23 (Pneumovax) 03/08/2019 Season Influenza, Quad, PF, Adjuvanted, 65+ Yrs, IM (FLUAD) 04/26/2020 Seasonal Influenza, PF, 6 M & above, IM , (FluLaval or Fluzone) 09/07/2018,05/06/2017 Seasonal Influenza, Quadriva lent Hd (Fluzone Hd) 05/08/2023,05/07/2022,11/08/2021,08/01 Seasonal Influenza, Quadriva lent Hd, 65+ Yrs 11/02/2021 Seasonal Influenza, Quadriva lent, No Preserve, IM 04/30/2016,05/26/2015 Seasonal Influenza, Split, I IV3, With Preserve, Inj 05/20/2014,05/03/2013,05/01/2012,05/01 TD, Preservative Free 08/11/1990 TDAP (age 10 and older)(Boostrix) 02/28/2021 TDAP (age 11 and older)(Adacel) 03/28/2008 Varicella Zoster Vaccine (Adult) 05/01/2012 Zoster Vaccine Recombinant (Shingrix) 04/28/2020 ,01/30/2020 documented as of this encounter Social History Tobacco Use Types Packs/Day Years Used Date Smoking Tobacco: Never Smokeless Tobacco: Never Alcohol Use Standard Drinks/Week Comments No 0 (1 standard drink = 0.6 oz pur e alcohol) PHQ-2 Answer Date Recorded PHQ Adult Total Score 0 02/09/2021 Hunger Vital Sign Answer Date Recorded Within the past 12 months, y ou worried that your food would run out before you got the money to buy more. Never true 10/31/19 24 Within the past 12 months, t he food you bought just didn't last and you didn't have money to get more. Never true 10/31/2023 Sex and Gender Information Value Date Recorded Sex Assigned at Female 11/20/2018 2:07 PM EDT Gender Identity Female 11/20/2018 2:07 PM EDT Sexual Orientation Straight 11/20/2018 2: 07 PM EDT Job Start Date Occupation Industry Not on file Not on file Not on file documented as of this encounter Functional Status Functional Status Response Date of Assess ment Are you deaf or do you have serious difficulty h earing? No 05/27/2023 Are you blind or do you have serious difficulty seeing, even when wearing glasses? No 05/27/2023 Do you have serious difficul ty walking or climbing stairs? (5 years old or older) No 05/27/2023 Do you have difficulty dress ing or bathing? (5 years old or older) No 05/27/2023 Because of a physical, menta l, or emotional condition, do you have difficulty doing errands alone such as visiting a doctor s office or shopping? (15 years old or older) No 05/27/20 Cognitive Status Response Date of Assessm ent Because of a physical, menta l, or emotional condition, do you have serious difficulty concentrating, remembering, or making decisions? (5 years old or older) No 05/27/2023 documented as of this encounter Miscellaneous Notes * Telephone Encounter - Mallory Cole MED ASSIST - 11/04/2023 9:36 AM EDT PT referral faxed to Shantelle Tobin at [phone]. Fax successful * Telephone Encounter - Kiki Hay MD - 11/04/2023 9:30 AM EDT Done * Telephone Encounter - Shante Zarate OSA - 11/04/2023 8:35 AM EDT Shantelle Counter Weigher called in to inform Dr. Hay that pt needs a referral for Physical Therapy. Please fax referral to Shantelle at [phone]. documented in this encounter Plan of Treatment Upcoming Encounters Date Type Department Care Team (Late st Contact Info) Description 11/17/2023 2:00 PM EDT Office Visit Orthopaedics [address] [place] [address] Angi Noel MD [address] [place] [address] 12/01/2023 1:00 PM EDT Cardiac Studies Cardiac Studies, [facility] [address] [place] [id number] 03/22/2024 4:20 PM EDT Office Visit Neurology [facility] [address] [facility] [place] [address] Loren Rudolph MD [address] [facility] [place] [address] 04/30/2024 2:00 PM EDT Office Visit General Internal Medicine [facility] [address] [facility] [place] [address] Kiki Hay MD [address] [facility] [place] [id number] Scheduled Procedures Name Priority Associated Diagnoses Date/Ti me COLONOSCOPY FLEXIBLE PROXIMA L DIAGNOSTIC Recall Encounter for screening colonoscopy Scheduled Referrals Name Type Priority Associated Diagnoses Orde r Schedule PHYSICAL THERAPY REFERRAL OP Referral Within 30 days (routine) Generalized weakness Ordered: 11/04/2023 Health Maintenance Due Date Last Done Comments Cologuard 10/16/1996 Fecal Occult Blood Test 10/16/1996 Sigmoidoscopy 10/16/1996 Depression Screening 02/09/2022 02/09/2021 COVID-19 Vaccine ( season) 2023 11/09/2020, 10/19/2020 TSH 06/04/2024 06/04/2023, 04/12, 02/05/2023, Additional history exists Mammogram 07/15/2024 07/15/2023, 05/11, 05/24/2022, Additional history exists Colonoscopy 06/02/2028 06/02/2018, 05/30/2008 Colorectal Cancer Screening 06/02/2028 DXA Scan 05/20/2030 05/20/2023, 02/09, 12/22/2003 DTaP,Tdap,and Td Vaccines (3 - Td or Tdap) 02/28/2031 02/28/2021, 03/28/2008, 08/11/1990, Additional history exists Pneumococcal Vaccine: 65+ Years Completed 03/08/2019, 02/26/2017 Zoster Vaccines Completed 04/28/2020, 01/10, 05/01/2012 Influenza Vaccine (FLU shot) Completed , 05/07/2022, 11/08/2021, Additional history exists GARDASIL-HPV IMMUNIZATION SERIES Aged Out No longer eligible based on patient's age to complete this topic Hepatitis B Aged Out No longer eligi ble based on patient's age to complete this topic MENINGOCOCCAL (MENACTRA/MENVEO) Aged Out No longer eligible based on patient's age to complete this topic documented as of this encounter Medical Devices Implanted Type Area Vinyl Installer Device Identifier Shelf Expiration Date Model / Serial / Lot Envista Hydrophobic Acrylic Intraocular Lens Implanted:Qty: 1 on 04/10/2022 by Gregory Nagel DO at OR [facility] Left: Eye [employer] 12/09/2023 [id number] / [id number] / [id number] Envista Intraocular Lens Implanted:Qty: 1 on 06/05/2022 by Gregory Nagel DO at OR [facility] Right: Eye [employer] 07/10/2024 [id number] / [id number] / [id number] documented as of this encounter Visit Diagnoses Diagnosis Generalized weakness- Primary Other malaise and fatigue documented in this encounter Advance Directives Latest Code Status on File Code Status Date Activated Date Inactivated Comments Full Code 05/27/2023 1:25 AM 05/29/2023 6:34 PM Thi s order reflects the patients wishes and were consensually agreed upon. Question Answer Comments Discussion of Advance Directives occurred with: Patient Code Status History Code Status Date Activated Date Inactivated Comments Full Code 06/05/2022 8:45 AM 06/05/2022 3:21 PM Question Answer Comments Discussion of Advance Directives occurred with: Not Discussed due to patient's condition Full Code 04/10/2022 9:31 AM 04/10/2022 3:30 PM Question Answer Comments Discussion of Advance Directives occurred with: Not Discussed Care Teams Litigation Assistant Relationship Specialty Start Date End Date Kiki Hay MD [address] [place] [address] PCP - General Internal Medicine 07/29/21 documented as of this encounter
--- OUTSIDE RECORDS SUMMARY | 2023-11-05 06:53 | External Medical Summary | Summary of Care ---
Author Name Unknown Organization [facility] Address [address] [place] [address] Phone [phone] Care Team Providers Care Laborer Carpentry Dock Name Role Phone Kiki Hay MD Primary Care Provider [phone] Encounter Details Date Type Department Care Team (Late st Contact Info) Description 10/31/2023 1:00 PM EDT Home Visit Care Coordination and Integration [address] [place] [address] Destinee Costa, Community Health Independent Trader [address] [place] [address] Allergies Active Allergy Reactions Criticality Noted Date Comments Acetaminophen-Codeine Other (Please comment) 12/02/2013 Patient reports Tylenol #3 caused increased seizure activity Amoxicillin 04/20/1999 rash, nausea Codeine 07/26/2021 Other reaction(s): Unknown documented as of this encounter (statuses as of 10/31/2023) Medications Medication Sig Dispensed Refills Start Date End Date Status Acetaminophen 500 MG Oral Tablet Take 1 Tablet by mouth every 6 hours as needed for Pain. 0 Active MEDICAL INSTRUCTIONS Stairlift needed for Sintia LEONARDO Shah 1950. [place] Customer Number: [id number] 1 Each 1 05/21/2021 Active Multivitamin Adult [...] as of this encounter (statuses as of 10/31/2023) Active Problems Problem Noted Date Diagnosed Date Closed wedge compression fracture of T6 vertebra 05/27/2023 Cognitive change 10/26/2022 At risk for falls 10/26/2022 JUSTIN (generalized anxiety disorder) 10/26/2022 Coronary artery disease invo lving [place] coronary artery of [place] heart without angina pectoris 12/15/2021 Diastolic dysfunction [...] as of this encounter (statuses as of 10/31/2023) Resolved Problems Problem Noted Date Diagnosed Date Resolved Date Encounter for examination fo r normal comparison and control in clinical research program 10/12/2018 03/13/2020 Overview: DO NOT DELETE [facility] DETECT Study: Project # [id number], Product Safety Administrator: Israel Acevedo, PhD. SUMMARY: Goal: Establish test [...] contact study staff at ; after hours Product Safety Administrator via the [facility] pug mill operator . Please contact study team before resolving/deleting from patients problem list. Study phone number: [phone]. Diagnosis changed due to Research Module. Go to Snapshot for study details. Encounter for examination fo r normal comparison and control in clinical research program 10/12/2018 04/11/2022 Overview: DO NOT DELETE - [facility] Study: Project # [id number], Product Safety Administrator: Andi White, MS, MPH. SUMMARY: Goal: Establish [...] contact study staff at ; after hours Product Safety Administrator via the [facility] hospital pug mill operator . - Please contact study team before resolving/deleting from patients problem list. Study phone number: [phone]. Diagnosis changed due to Research Module. Go [...] 09/06/2009 09/03/2017 Overview: Dr. Lawrence Dx per [facility] records. 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 Dermatophytosis of nail 05/24/2003/0 08/2010 documented as of this encounter (statuses as of 10/31/2023) Immunizations Name Administration Dates Next Due COVID-19 mRNA, LNP-s, No Pre serve, 2-Dose Series (Pfizer) 11/09/2020,10/19/2020 Diptheria/Tetanus (Adult) 08/11/1990 Pneumococcal Conjugate Vacc, 13 Valent (Prevnar) 02/26/2017 [...] on file documented as of this encounter Last Filed Vital Signs Vital Sign Reading Time Taken Comments Blood Pressure 120/70 10/31/2023 1:30 PM EDT Pulse 67 10/31/2023 1:30 PM EDT Temperature 37.3 C (99.2 F) 10/31/2023 1:30 PM ED T Respiratory Rate - - Oxygen Saturation 93% 10/31/2023 1:30 PM EDT Inhaled Oxygen Concentration - - Weight - - Height - - Body Mass Index - - documented in this encounter Functional Status Functional Status Response [...] No 05/27/2023 documented as of this encounter Progress Notes * Destinee Costa, Community Health Independent Trader - 10/31/2023 1:40 PM EDT Telemedicine visit: No Community Health Independent Trader (TIFFANIE) documentation: CHW facilitated home visit with Sintia. Sintia was home by herself. Kenny is still in the hospital, he is to be coming home tomorrow according to Sintia. Sintia reported that her daughter Destinee comes and helps her scrub her floors and cleans for her. And her son fills her med minder for her once a week and checks in on her often and lives nearby. CHW completed bottles out med review. Reviewed red flags. Received her meals on wheels today. Destinee Costa- Community Health Worker 1 Support Services/[facility] [email or web address] documented in this encounter Plan of Treatment Upcoming Encounters Date Type Department Care Team (Late st Contact Info) Description 12/01/2023 1:00 PM EDT Cardiac Studies Cardiac Studies, [facility] [address] [facility] [place] [address] 03/22/2024 4:20 PM EDT Office Visit Neurology [facility] [address] [place] [address] Lorne Rudolph MD [address] [place] [address] 04/30/2024 2:00 PM EDT Office Visit General Internal Medicine [facility] [address] [place] [address] Kiki Hay MD [address] [place], [place] [address] Scheduled Procedures Name Priority Associated Diagnoses Date/Ti me COLONOSCOPY FLEXIBLE PROXIMA L DIAGNOSTIC Recall Encounter for screening colonoscopy Health Maintenance Due Date Last Done Comments [...] this encounter Medical Devices Implanted Type Area Learning Support Aide Device Identifier Shelf Expiration Date Model / Serial / Lot Envista Hydrophobic Acrylic Intraocular Lens Implanted:Qty: 1 on 04/10/2022 by Gregory Nagel, at [facility] Left: Eye [employer]OM[employer] 12/09/2023 [id number] / [id number] / [id number] Envista Intraocular Lens Implanted:Qty: 1 on 06/05/2022 by Gregory Nagel DO at [facility] Right: Eye [employer]OM[employer] 07/10/2024 [id number] / [id number] / [id number] documented as of this encounter Advance Directives Latest Code Status [...] Directives occurred with: Not Discussed Care Teams Laborer Carpentry Dock Relationship Specialty Start Date End Date Kiki Hay MD [address] [facility] [place] [address] PCP - General Internal Medicine 07/29/21 documented as of this encounter
--- OUTSIDE RECORDS SUMMARY | 2023-11-05 06:53 | External Medical Summary | Summary of Care ---
Author Name Unknown Organization [facility] Address [address] [place] [address] Phone [phone] Care Team Providers Care Western Philosophy Professor Name Role Phone Kiki Hay MD Primary Care Provider [phone] Reason for Referral * Evaluate & Treat - Unlimited Visits (Within 30 days (routine)) - Authorized Specialty Diagnoses / Procedures Referred By Contac t Referred To Contact Physical Therapy / Physical Medicine And Rehab Diagnoses Generalized weakness Kiki Hay MD [address] [facility] [place] [address] Referral ID Status Reason Start Date Expiration Date Visits Requested Visits Authorized [id number] Authorized Specialty Services Required 11/04/2023 999 999 Question Answer Referral Priority Within 30 days (routine) Where should this appointment be scheduled? External Reason for Visit * Reason Onset Date Comments Advice 11/04/2023 Referral 11/04/2023 Physical Therapy Fax 11/04/2023 Encounter Details Date Type Department Care Team (Late st Contact Info) Description 11/04/2023 Telephone General Internal Medicine [facility] [address] [facility] [place] [address] Kiki Hay MD [address] [facility] [place] [address] Advice; Referral (Physical Therapy); Fax (... Allergies [...] INSTRUCTIONS Stairlift needed for Sintia Shah, 1950. [place] Customer Number: [id number] 1 Each 1 05/21/2021 Active Multivitamin Adult [...] disorder) 10/26/2022 Coronary artery disease invo lving [place] coronary artery of [place] heart without angina pectoris 12/15/2021 Diastolic dysfunction [...] 10/12/2018 03/13/2020 Overview: DO NOT DELETE [facility] DETECT Study: Project # [id number], Energy Consultant: Israel Acevedo, PhD. SUMMARY: Goal: Establish test [...] contact study staff at ; after hours Energy Consultant via the [facility] hospital finishing operator . Please contact study team before resolving/deleting from patients problem list. Study phone number: [phone]. Diagnosis changed due to Research Module. Go to Snapshot for study details. Encounter for examination fo r normal comparison and control in clinical research program 10/12/2018 04/11/2022 Overview: DO NOT DELETE - [facility] DETECT Study: Project # [id number], Energy Consultant: Andi White, MS, MPH. SUMMARY: Goal: Establish [...] contact study staff at ; after hours Energy Consultant via the [facility] hospital finishing operator . - Please contact study team before resolving/deleting from patients problem list. Study phone number: [phone]. Diagnosis changed due to Research Module. Go [...] Overview: Dr. Lawrence Dx per [facility] records. 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 Dermatophytosis of nail 05/24/2003 11/0 08/2010 documented as of this encounter (statuses as of 11/04/2023) Immunizations Name Administration Dates Next Due COVID-19 mRNA, LNP-s, No Pre serve, 2-Dose Series ([place]) 11/09/2020,10/19/2020 Pneumococcal Conjugate Vacc, 13 Valent (Prevnar) [...] PT referral faxed to Shantelle Tobin at [phone]. Fax successful * Telephone Encounter - Kiki Hay MD - 11/04/2023 9:30 AM EDT Done * Telephone Encounter - Shante Zarate [facility] - 11/04/2023 8:35 AM EDT Shantelle Repairer [employer] called in to inform Dr. Hay that pt needs a referral for Physical Therapy. Please fax referral to Shantelle at [phone]. documented in this encounter Plan of Treatment Upcoming Encounters Date Type Department Care Team (Late st Contact Info) Description 12/01/2023 1:00 PM EDT Cardiac Studies Cardiac Studies, [facility] [address] [place] [address] 03/22/2024 4:20 PM EDT Office Visit Neurology [facility] [address] [facility] [place] [address] Loren Rudolph MD [address] [facility] [place] [address] 04/30/2024 2:00 PM EDT Office Visit General Internal Medicine [facility] [address] [facility] [place] [address] Kiki Hay MD [address] [facility] [place] [address] Scheduled Procedures Name Priority Associated Diagnoses Date/Ti [...] this encounter Medical Devices Implanted Type Area Prism Measurer Device Identifier Shelf Expiration Date Model / Serial / Lot Envista Hydrophobic Acrylic Intraocular Lens Implanted:Qty: 1 on 04/10/2022 by Gregory Nagel, DO at OR [facility] Left: Eye [employer] 12/09/2023 [id number] / [id number] / [id number] Envista Intraocular Lens Implanted:Qty: 1 on 06/05/2022 by Gregory Nagel, DO at OR [facility] Right: Eye [employer]CH [employer]OMB 07/10/2024 [id number] / [id number] / [id number] documented as of this encounter Visit Diagnoses [...] Directives occurred with: Not Discussed Care Teams Western Philosophy Professor Relationship Specialty Start Date End Date Kiki Hay MD [address] [place] [address] PCP - General Internal Medicine 07/29/21 documented as of this encounter
--- OUTSIDE RECORDS SUMMARY | 2023-11-05 06:54 | External Medical Summary ---
Author Name Unknown Address Unknown Organization K09[facility] [place] [place] [address] Laboratory Report Ordering Provider Test Date Status HY,DEPAMPHILIS 10/21/2023 05:45:00 Final Observation Date Value Abnormality Reference (Units ) Status BUN 10/21/2023 05:45:00 9 6-20 (mg/dL) Final Creatinine 10/21/2023 05:45:00 0.5 0.5-1.0 (mg/dL) Final Glomerular filtration rate/1.73 sq M.predicted [Volume Rate/Area] in Serum, Plasma or Blood by Creatinine-based formula (CKD-EPI) 10/21/2023 05:45:00 >90 >=60 (mL/min) Final eGFR is calculated based on the CKD-EPI 2020 equation SODIUM 10/21/2023 05:45:00 131 Below low normal 135 -146 (mmol/L) Final Potassium 10/21/2023 05:45:00 5.1 3.5-5.1 (m mol/L) Final Cl 10/21/2023 05:45:00 94 Below low normal 98- 107 (mmol/L) Final CO2 10/21/2023 05:45:00 29 22-32 (mmo l/L) Final Anion gap 10/21/2023 05:45:00 8 7-15 (mmol /L) Final Glucose 10/21/2023 05:45:00 85 70-120 (mg /dL) Final Calcium 10/21/2023 05:45:00 9.2 8.4-10.2 ( mg/dL) Final Performing Location [facility] [place] [address]
--- OUTSIDE RECORDS SUMMARY | 2023-11-05 06:54 | External Medical Summary ---
Author Name Unknown Address Unknown Organization K09[facility] [place] [address] Laboratory Report Ordering Provider Test Date Status COLIN TREVINO 10/21/2023 05:45:00 Final Observation Date Value Abnormality Reference (Units ) Status WBC, Total 10/21/2023 05:45:00 3.78 Below low normal 4. 00-10.80 (K/uL) Final RBC 10/21/2023 05:45:00 3.94 3.85-5.15 (M/uL) Final Hemoglobin 10/21/2023 05:45:00 12.6 12.0-15.3 (g/dL) Final HCT 10/21/2023 05:45:00 37.7 36.0-45.2 (%) Final MCV 10/21/2023 05:45:00 95.7 81.5-97.5 (fL) Final MCH 10/21/2023 05:45:00 32.0 27.0-34.0 (pg) Final MCHC 10/21/2023 05:45:00 33.4 32.0-36.0 (g/dL) Final RDW 10/21/2023 05:45:00 13.0 11.5-15.5 (%) Final Platelets 10/21/2023 05:45:00 341 140-400 (K /uL) Final MPV 10/21/2023 05:45:00 9.7 6.6-11.1 ( fL) Final Performing Location [facility] [place] [address]
--- OUTSIDE RECORDS SUMMARY | 2023-11-05 06:54 | External Medical Summary ---
Author Name Unknown Address Unknown Organization K09:[facility] [place] [address] Laboratory Report Ordering Provider Test Date Status COLIN TREVINO 10/14/2023 07:01:40 Final Observation Date Value Abnormality Reference (Units ) Status WBC, Total 10/14/2023 07:01:40 2.73 Below low normal 4. 00-10.80 (K/uL) Final RBC 10/14/2023 07:01:40 4.38 3.85-5.15 (M/uL) Final Hemoglobin 10/14/2023 07:01:40 13.9 12.0-15.3 (g/dL) Final HCT 10/14/2023 07:01:40 40.7 36.0-45.2 (%) Final MCV 10/14/2023 07:01:40 92.9 81.5-97.5 (fL) Final MCH 10/14/2023 07:01:40 31.7 27.0-34.0 (pg) Final MCHC 10/14/2023 07:01:40 34.2 32.0-36.0 (g/dL) Final RDW 10/14/2023 07:01:40 12.5 11.5-15.5 (%) Final Platelets 10/14/2023 07:01:40 197 140-400 (K /uL) Final MPV 10/14/2023 07:01:40 10.1 6.6-11.1 ( fL) Final Performing Location [facility] [place] [address]
--- OUTSIDE RECORDS SUMMARY | 2023-11-05 06:54 | External Medical Summary | Summary of Care ---
Author Name Unknown Organization [facility] Address [address] [place] [address] Phone [phone] Care Team Providers Care Buildings And Grounds Superintendent Name Role Phone Kiki Hay MD Primary Care Provider [phone] Reason for Referral * Evaluate & Treat - Unlimited Visits (Within 30 days (routine)) - Authorized Specialty Diagnoses / Procedures Referred By Sil bautista Referred To Contact Orthopaedic Surgery / Orthopedics Diagnoses Primary osteoarthritis of both knees Kiki Hay MD [address] [place] [id number] Referral ID Status Reason Start Date Expiration Date Visits Requested Visits Authorized [id number] Authorized Specialty Services Required 10/28/[phone] Question Answer Referral Priority Within 30 days (routine) Where should this appointment be scheduled? [facility] What body part is the patient being seen for? Thigh/Knee What condition is the patient being seen for? Arthritis including related infection Comments Knee OA - injection Reason for Visit * Reason Onset Date Comments Hospital Follow[facility] 10/25/23 Hospital Follow-Up 10/28/2023 Encounter Details Date Type Department Care Team (Latest Contact Info) Description 10/28/2023 11:00 AM EDT Office Visit General Internal Medicine State [facility] Mchugh [address] [place] [id number] Kiki Hay MD [address] [place] [address] [id number] Bronchitis due to COVID-19 virus*; Generalized weakness; FORREST on CPAP; Venous insufficiency; Lumbar degenerative disc disease; Nocturnal hypoxemia; Acquired hypothyroidism; History of nonmelanoma skin cancer; History of DVT (deep vein thrombosis); JUSTIN (generalized anxiety disorder); EPILEPSY;NONCONV,W/O INTRACTABLE; Diastolic dysfunction; Syncope, unspecified syncope type; DIVERTICULOSIS OF COLON; Coronary artery disease involving [place] coronary artery of [place] heart without angina pectoris; Cognitive change; Closed wedge compression fracture of T6 vertebra, sequela; B12 deficiency; At risk for falls; Non-toxic multinodular goiter; Hospital discharge follow-up; Constipation, unspecified constipation type; History of pulmonary embolism; Senile osteoporosis; Primary osteoarthritis of both knees Allergies Active Allergy Reactions Criticality Noted Date Comments Acetaminophen-Codeine Other (Please comment) 12/02/2013 Patient reports Tylenol #3 caused increased seizure activity Amoxicillin 04/20/1999 rash, nausea Codeine 07/26/2021 Other reaction(s): Unknown documented as of this encounter (statuses as of 10/28/2023) Medications Medication Sig Dispensed Refills Start Date End Date Status Acetaminophen 500 MG Oral Tablet Take 1 Tablet by mouth every 6 hours as needed for Pain. 0 Active MEDICAL INSTRUCTIONS Stairlift needed for Sintia Shah, 1950. [place] Customer Number: [id number] 1 Each 1 1 Active Multivitamin Adult Oral Tablet Take by mouth 1 Tablet daily . 0 Active Calcium Citrate-Vitamin D 315-5 MG-MCG Oral Tablet Take 1 Tablet by mouth in the morning. 0 Active B-12 1000 MCG Oral TabletIndications: B12 deficiency Take 1,000 mcg by mouth in the morning. 90 Tablet 3 3 Active Cranberry 500 MG Oral Capsule Take 1 Capsule by mouth in the morning and 1 Capsule before bedtime. 0 Active Levothyroxine Sodium 75 MCG Oral Tablet (Euthyrox) Take 1 Tablet by mouth daily first thing in the morning. 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 540 Tablet 1 3 Active Divalproex Sodium ER 500 MG Oral Tablet Extended Release 24 Hour (Depakote ER)Indications:Gen eralized nonconvulsive epilepsy without intractable epilepsy (HCC) TAKE 2 TABLETS BY MOUTH ONCE DAILY DO NOT CUT, CRUSH OR CHEW 180 Tablet 1 3 Active levETIRAcetam 750 MG Oral Tablet Take 1 Tablet by mouth in the morning and 1 Tablet before bedtime. 60 Tablet 5 3 Active Docusate Sodium 100 MG Oral Capsule (Colace) Take 1 Capsule by mouth in the morning and 1 Capsule before bedtime. 10 Capsule 0 3 Active Gabapentin 300 MG Oral Capsule (Neurontin)Indicat ions:Lumbar degenerative disc disease Take 1 Capsule by mouth in the morning and 1 Capsule in the evening. 180 Capsule 3 3 Active Benefiber Oral Tablet Chewable Take 1 Tablet by mouth in the morning. 0 3 Active Alendronate Sodium 70 MG Oral Tablet (Fosamax)Indicatio ns:Age-related osteoporosis with current pathological fracture with routine healing, subsequent encounter Take 1 Tablet by mouth once a week. with 8 oz. water 30 minutes before first meal of the day. Remain upright for 30 min after taking tablet 15 Tablet 3 3 Active Fluticasone Propionate 50 MCG/ACT Nasal Suspension (Flonase) Administer 2 Sprays into nostril in the morning. 0 4 Active Benefiber Oral PowderIndications: Constipation, unspecified constipation type Take 1 Tbsf in a glass of water daily 0 4 Active Aspirin 81 MG Oral Tablet Delayed Release Take 1 Tablet by mouth in the morning. 0 4 Active ProAir HFA 108 (90 Base) MCG/ACT Inhalation Aerosol SolutionIndication s:Bronchitis due to COVID-19 virus Inhale 2 Puffs by mouth every 4 hours as needed for Wheezing. 18 g 1 4 Active Spacer/Aero-Holdin g Chambers DeviceIndications: Bronchitis due to COVID-19 virus Use with inhaler. 1 Each 0 4 Active oxyCODONE HCl 5 MG Oral Tablet (Oxy IR) Take 1 Tablet by mouth every 6 hours as needed for Pain, Severe. ongoing 20 Tablet 0 3 10/28/19 24 Discontinued documented as of this encounter (statuses as of 10/28/2023) Active Problems Problem Noted Date Diagnosed Date Closed wedge compression fracture of T6 vertebra 05/27/2023 Cognitive change 10/26/2022 At risk for falls 10/26/2022 JUSTIN (generalized anxiety disorder) 10/26/2022 Coronary artery disease invo lving [place] coronary artery of [place] heart without angina pectoris 12/15/2021 Diastolic dysfunction [...] as of this encounter (statuses as of 10/28/2023) Resolved Problems Problem Noted Date Diagnosed Date Resolved Date Encounter for examination fo r normal comparison and control in clinical research program 10/12/2018 03/13/2020 Overview: DO NOT DELETE [facility] DETECT Study: Project # [id number], Construction Safety Manager: Israel Acevedo, PhD. SUMMARY: Goal: Establish test [...] contact study staff at ; after hours Construction Safety Manager via the [facility] power hammer operator . Please contact study team before resolving/deleting from patients problem list. Study phone number: [phone]. Diagnosis changed due to Research Module. Go to Snapshot for study details. Encounter for examination fo r normal comparison and control in clinical research program 10/12/2018 04/11/2022 Overview: DO NOT DELETE - [facility] DETECT Study: Project # [id number], Construction Safety Manager: Andi White, MS, MPH. SUMMARY: Goal: Establish [...] contact study staff at ; after hours Construction Safety Manager via the [facility] power hammer operator . - Please contact study team before resolving/deleting from patients problem list. Study phone number: [phone]. Diagnosis changed due to Research Module. Go [...] 09/06/2009 09/03/2017 Overview: Dr. Lawrence Dx per [facility] records. 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 Dermatophytosis of nail 05/24/2003 11/0 08/2010 documented as of this encounter (statuses as of 10/28/2023) Immunizations Name Administration Dates Next Due COVID-19 mRNA, LNP-s, No Pre serve, 2-Dose Series ([employer]) 11/09/2020,10/19/2020 Pneumococcal Conjugate Vacc, 13 Valent (Prevnar) [...] the money to buy more. Never true 10/17/19 Within the past 12 months, t he food you bought just didn't last and you didn't have money to get more. Never true 10/16/2022 Sex and Gender Information Value Date Recorded Sex Assigned at Female 11/20/2018 2:07 PM EDT Gender Identity Female 11/20/2018 2:07 PM EDT Sexual Orientation Straight 11/20/2018 2: 07 PM EDT Job Start Date Occupation Industry Not on file Not on file Not on file documented as of this encounter Last Filed Vital Signs Vital Sign Reading Time Taken Comments Blood Pressure 118/70 10/28/2023 11:14 AM EDT Pulse 72 10/28/2023 11:14 AM EDT Temperature 37.3 C (99.2 F) 10/28/2023 11:14 AM E DT Respiratory Rate - - Oxygen Saturation 99% 10/28/2023 11:14 AM EDT Inhaled Oxygen Concentration - - Weight 102.3 kg (225 lb 8 oz) 10/28/2023 11:14 A M EDT Height - - Body Mass Index 39.95 05/27/2023 3:20 AM EDT documented in this encounter Functional Status Functional [...] as of this encounter Progress Notes * Kiki Hay MD - 10/28/2023 5:14 PM EDT SUBJECTIVE: Sintia Shah is a 73 year old female. Chief Complaint Patient presents with Hospital Follow[facility] d/c 10/25/23 Hospital Follow-Up HPI: 73 year oldYOfemale with PMH significant for DVT, PE , FORREST on c-pap, epilepsy , neuropathy ( not clear reason ) presents here for hospital and [facility] follow up.Pt was having flu-like symptom after being in contact with somebody with for COVID causing some SOB and weakness to the point of near fall. Admitted to hospital on where she was found to have respiratory distress, weakness and dehydrated. Labs were overall normal except leukocytosis and hyponatremia but urine normal and Imaging chest x-ray unremarkable. Her respiratory panel came back negative but it was suspected to be COVID due to her close contact. She was seen by PT and OT and was felt week to sent home . she was discharged to campus for rehab On October 13, 2023 . She did well overall. PT /OT was very helpful . She was sent home on October 25, 2023 on home meds and visiting nurse. Since discharge feeling much better . Hospital and Rehab records reviewed and updated. The patient's medication list was reviewed and updated as needed. Current issues now- - finished up with home PT and OT and now will be going to [facility]'s physical therapy - has been having some cough and chest tightness/ wheezing. Does not have any inhaler at home Patient Active Problem List Diagnosis Code EPILEPSY;NONCONV,W/O INTRACTABLE G40.309 DIVERTICULOSIS OF COLON K57.30 Non-toxic multinodular goiter E04.2 History of pulmonary embolism Z86.711 Hypothyroidism E03.9 B12 deficiency E53.8 Lumbar degenerative disc disease M51.36 Syncope R55 Nocturnal hypoxemia G47.34 History of DVT (deep vein thrombosis) Z86.718 Venous insufficiency I87.2 FORREST on CPAP G47.33 History of nonmelanoma skin cancer Z85.828 Diastolic dysfunction I51.89 Coronary artery disease involving [place] coronary artery of [place] heart without angina pectoris I25.10 Cognitive change R41.89 At risk for falls Z91.81 JUSTIN (generalized anxiety disorder) F41.1 Closed wedge compression fracture of T6 vertebra (HCC) S22.050A Current Outpatient Medications Medication Sig Dispense Refill Acetaminophen 500 MG Oral Tablet Take 1 Tablet by mouth every 6 hours as needed for Pain. MEDICAL INSTRUCTIONS Stairlift needed for LEONARDO Velasquez 1950. [place] Customer Number: [id number] 1 Each 1 Multivitamin Adult Oral Tablet Take by mouth 1 Tablet daily . Calcium Citrate-Vitamin D 315-5 MG-MCG Oral Tablet Take 1 Tablet by mouth in the morning. B-12 1000 MCG Oral Tablet Take 1,000 mcg by mouth in the morning. 90 Tablet 3 Cranberry 500 MG Oral Capsule Take 1 Capsule by mouth in the morning and 1 Capsule before bedtime. Levothyroxine Sodium 75 MCG Oral Tablet (Euthyrox) Take 1 Tablet by mouth daily first thing in the morning. (at least 30 min prior to breakfast or other meds) 90 Tablet 1 OXcarbazepine 150 MG Oral Tablet (Trileptal) Take 3 Tabs by mouth 2 times a day. 540 Tablet 1 Divalproex Sodium ER 500 MG Oral Tablet Extended Release 24 Hour (Depakote ER) TAKE 2 TABLETS BY MOUTH ONCE DAILY DO NOT CUT, CRUSH OR CHEW 180 Tablet 1 levETIRAcetam 750 MG Oral Tablet Take 1 Tablet by mouth in the morning and 1 Tablet before bedtime.60 Tablet 5 Gabapentin 300 MG Oral Capsule (Neurontin) Take 1 Capsule by mouth in the morning and 1 Capsule in the evening. 180 Capsule 3 Alendronate Sodium 70 MG Oral Tablet (Fosamax) Take 1 Tablet by mouth once a week. with 8 oz. water30 minutes before first meal of the day. Remain upright for 30 min after taking tablet 15 Tablet 3 Benefiber Oral Powder Take 1 Tbsf in a glass of water daily Aspirin 81 MG Oral Tablet Delayed Release Take 1 Tablet by mouth in the morning. ProAir HFA 108 (90 Base) MCG/ACT Inhalation Aerosol Solution Inhale 2 Puffs by mouth every 4 hours as needed for Wheezing. 18 g 1 Spacer/Aero-Holding Chambers Device Use with inhaler. 1 Each 0 Docusate Sodium 100 MG Oral Capsule (Colace) Take 1 Capsule by mouth in the morning and 1 Capsule before bedtime. 10 Capsule 0 Benefiber Oral Tablet Chewable Take 1 Tablet by mouth in the morning. Fluticasone Propionate 50 MCG/ACT Nasal Suspension (Flonase) Administer 2 Sprays into nostril in the morning. No current facility-administered medications for this visit. 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 Valdo Ontiveros COLONOSCOPY, DIAGNOSTIC (RECTUM) 05/30/2008 repeat in 10 years, diverticulosis. COLONOSCOPY, DIAGNOSTIC (RECTUM) 06/02/2018 diverticulosis, repeat 10 yrs/[facility] INFORMATION 11/19/2007 [facility]: thyoid ultrasound showed multinodular thyroid LIGATE/CUT OVIDUCT(S) Tubal Ligation PERC VERTEBRAL AUGMENTATION LUMBAR KYPHOPLASTY 04/02/2021 [facility] [place] REMOVAL OF TONSILS, UNDER AGE 13 REMOVE CATARACT, INSERT LENS PROSTH Left 04/10/2022 LEFT EXTRACAPSULAR CATARACT REMOVAL WITH INTRAOCULAR LENS performed by Gregory Nagel DO at OR [facility] REMOVE CATARACT, INSERT LENS PROSTH Right 06/05/2022 RIGHT EXTRACAPSULAR CATARACT REMOVAL WITH INTRAOCULAR LENS performed by Gregory Nagel DO at OR [facility] Family History Problem Relation Age of Onset No Known Problems Brother Other (Other) Daughter covid Cervical Cancer Daughter Thyroid cancer Daughter Dementia Mother Colon cancer Mother Colon cancer Grandmother (Paternal) Lung Disorder Father at 78, Heavy Smoker Emphysema Father Social History Socioeconomic History Marital status: Spouse name: Wolf Number of children: 6 Occupational History 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 Employer: [employer] Comment: [employer] Tobacco Use Smoking status: Never Smokeless tobacco: Never Vaping Use Vaping Use: Never used Substance and Sexual Activity Alcohol use: No Drug use: No Sexual activity: Yes Partners: Male Social History Narrative Works at [employer], Member Of [employer] Social Determinants of Health Food Insecurity: No Food Insecurity (10/16/2022) Hunger Vital Sign Worried About Running Out of Food in the Last Year: Never true Ran Out of Food in the Last Year: Never true Family History Problem Relation Age of Onset No Known Problems Brother Other (Other) Daughter covid Cervical Cancer Daughter Thyroid cancer Daughter Dementia Mother Colon cancer Mother Colon cancer Grandmother (Paternal) Lung Disorder Father at 78, Heavy Smoker Emphysema Father REVIEW OF SYSTEMS: All 10 systems reviewed and negative except mentioned in HPI OBJECTIVE: BP 118/70 | Pulse 72 | Temp 37.3 C (99.2 F) (Tympanic) | Wt 102.3 kg (225 lb 8 oz) | LMP 11/18/2007 | SpO2 99% | BMI 39.95 kg/m | BSA 2.13 m PHYSICAL EXAM: General: alert, no distress, obese and in wheelchair Head: Normocephalic, No masses, lesions, tenderness or abnormalities Oropharynx: no exudate, no erythema, lips, buccal mucosa, and tongue normal, and mucous membranes are moist Neck: supple, no adenopathy, no bruits, thyroid normal size, non-tender, without nodularity Heart: regular rate & rhythm, no murmur, and no gallops Lungs: chest symmetric with normal AP diameter, no chest deformities noted, no chest wall tenderness, lungs clear to auscultation Abdomen: abdomen soft, non-tender, normal bowel sounds, and no masses or organomegaly Back: back symmetric, no curvature, no costovertebral angle tenderness Neuro: generally weak with 4/5 in legs ASSESSMENT AND PLAN Bronchitis due to COVID-19 virus (Primary) - DISCH MED RECON CUR MED LIS - ProAir HFA 108 (90 Base) MCG/ACT Inhalation Aerosol Solution; Inhale 2 Puffs by mouth every 4 hours as needed for Wheezing. - Spacer/Aero-Holding Chambers Device; Use with inhaler. Generalized weakness - DISCH MED RECON CUR MED LIS Continue outpatient physical therapy. Encouraged patient to walk with walker and increase her activity and do exercise at home too FORREST on CPAP Venous insufficiency Lumbar degenerative disc disease Stable Continue current treatment as directed Nocturnal hypoxemia Acquired hypothyroidism - TSH; Future; Expected date: 11/28/2023 History of nonmelanoma skin cancer Dermatology following History of DVT (deep vein thrombosis) JUSTIN (generalized anxiety disorder) EPILEPSY;NONCONV,W/O INTRACTABLE Stable Continue current treatment as directed by Neurology Diastolic dysfunction Syncope, unspecified syncope type DIVERTICULOSIS OF COLON Coronary artery disease involving [place] coronary artery of [place] heart without angina pectoris Cognitive change Closed wedge compression fracture of T6 vertebra, sequela - 25-HYDROXY VITAMIN D; Future; Expected date: 11/28/2023 B12 deficiency - CBC WITH WBC DIFFERENTIAL AND ANEMIA REFLEX WORKUP; Future; Expected date: 11/28/2023 - VITAMIN B12; Future; Expected date: 11/28/2023 At risk for falls Non-toxic multinodular goiter Hospital discharge follow-up - DISCH MED RECON CUR MED LIS Constipation, unspecified constipation type History of pulmonary embolism Senile osteoporosis - BASIC METABOLIC PANEL; Future; Expected date: 11/28/2023 - 25-HYDROXY VITAMIN D; Future; Expected date: 11/28/2023 Primary osteoarthritis of both knees - DISCH MED RECON CUR MED LIS - ORTHOPAEDICS REFERRAL OP Follow Up: Return in about 6 months (around 04/29/2024) for recheck. | For: recheck Treatment and plan discussed with patient and was given opportunity to ask questions which were answered . Patient verbalized understanding. This note was prepared with the help of fluency and if there is any mis-spelled words , sentences or something which doesn't represent the content of the subject that could be technical error and please refer to the author for clarification. Kiki Hay MD 5:14 PM 10/28/2023 documented in this encounter Nursing Notes * Josselin Suero LPN - 10/28/2023 11:14 AM EDT Chief Complaint Patient presents with Hospital Follow[facility] d[facility]c 10/25/23 documented in this encounter Plan of Treatment Upcoming Encounters Date Type Department Care Team (Late st Contact Info) Description 12/01/2023 1:00 PM EDT Cardiac Studies Cardiac Studies, [facility] [address] [facility] [place] [id number] 03/22/2024 4:20 PM EDT Office Visit Neurology Dilia Stinson [place] [address] [facility] [address] Loren Rudolph MD [address] [facility] [place] [address] 04/30/2024 2:00 PM EDT Office Visit General Internal Medicine [place] [facility]ugh [address] [facility] [place] [place] [address] Kiki Hay MD [address] [facility] [place] [address] Scheduled Orders Name Type Priority Associated Diagnoses Orde r Schedule TSH Lab Routine Acquired hypothyroidism Expected: 11/28/2023, Expires: 10/27/2024 CBC WITH WBC DIFFERENTIAL AND ANEMIA REFLEX WORKUP Lab Routine B12 deficiency Expected: 11/28/2023, Expires: 10/27/2024 BASIC METABOLIC PANEL Lab Routine Senile osteoporosis Expected: 11/28/2023, Expires: 10/27/2024 25-HYDROXY VITAMIN D Lab Routine Closed wedge compression fracture of T6 vertebra, sequela Senile osteoporosis Expected: 11/28/2023, Expires: 10/27/2024 VITAMIN B12 Lab Routine B12 deficiency Expected: 11/28/2023, Expires: 10/27/2024 Scheduled Procedures Name Priority Associated Diagnoses Date/Ti me COLONOSCOPY FLEXIBLE PROXIMA L DIAGNOSTIC Recall Encounter for screening colonoscopy Scheduled Referrals Name Type Priority Associated Diagnoses Orde r Schedule ORTHOPAEDICS REFERRAL OP Referral Within 30 days (routine) Primary osteoarthritis of both knees Ordered: 10/28/2023 Health Maintenance Due Date Last Done Comments [...] this encounter Medical Devices Implanted Type Area [employer] Firer/Fireman Device Identifier Shelf Expiration Date Model / Serial / Lot Envista Hydrophobic Acrylic Intraocular Lens Implanted:Qty: 1 on 04/10/2022 by Gregory Nagel DO at OR [facility] Left: Eye [employer] 12/09/2023 [id number] / [id number] / [id number] [employer]ista Intraocular Lens Implanted:Qty: 1 on 06/05/2022 by Gregory Nagel DO at OR [facility] Right: Eye [employer] 07/10/2024 [id number] / [id number] / [id number] documented as of this encounter Visit Diagnoses Diagnosis Bronchitis due to COVID-19 virus- Primary Generalized weakness Other malaise and fatigue FORREST on CPAP Obstructive sleep apnea (adult) (pediatric) Venous insufficiency Unspecified venous (peripheral) insufficiency Lumbar degenerative disc disease Degeneration of lumbar or lumbosacral intervertebral disc Nocturnal hypoxemia Hypoxemia Acquired hypothyroidism Unspecified hypothyroidism History of nonmelanoma skin cancer Personal history of other malignant neoplasm of skin History of DVT (deep vein thrombosis) Personal history of venous thrombosis and embolism JUSTIN (generalized anxiety disorder) Generalized anxiety disorder EPILEPSY;NONCONV,W/O INTRACTABLE Generalized nonconvulsive epilepsy without mention of intractable epilepsy Diastolic dysfunction Heart disease, unspecified Syncope, unspecified syncope type DIVERTICULOSIS OF COLON Diverticulosis of colon (without mention of hemorrhage) Coronary artery disease involving [place] coronary artery of [place] heart without angina pectoris Cognitive change Other signs and symptoms involving cognition Closed wedge compression fracture of T6 vertebra, sequela B12 deficiency Other B-complex deficiencies At risk for falls Personal history of fall Non-toxic multinodular goiter Nontoxic multinodular goiter Hospital discharge follow-up Other follow-up examination Constipation, unspecified constipation type History of pulmonary embolism Personal history of pulmonary embolism Senile osteoporosis Primary osteoarthritis of both knees Primary localized osteoarthrosis, lower leg documented in this encounter Advance Directives Latest [...] Directives occurred with: Not Discussed Care Teams Buildings And Grounds Superintendent Relationship Specialty Start Date End Date Kiki Hay MD [address] [place] [address] PCP - General Internal Medicine 07/29/21 documented as of this encounter"
--- OUTSIDE RECORDS SUMMARY | 2023-11-05 06:54 | External Medical Summary | Summary of Care ---
Author Name Unknown Organization [facility] Address [address] [place] [address] Phone [phone] Care Team Providers Care Strategic Marketing Leader Name Role Phone Kiki Hay MD Primary Care Provider [phone] Encounter Details Date Type Department Care Team (Late st Contact Info) Description 10/21/2023 Result Scan Unspecified Department Loren Cerrato Hailey, DO [address] [facility] [address] <No scans attached> Allergies Active Allergy Reactions Criticality Noted Date Comments Acetaminophen-Codeine Other (Please comment) 12/02/2013 Patient reports Tylenol #3 caused increased seizure activity Amoxicillin 04/20/1999 rash, nausea Codeine 07/26/2021 Other reaction(s): Unknown documented as of this encounter (statuses as of 10/21/2023) Medications Medication Sig Dispensed Refills Start Date End Date Status Acetaminophen 500 MG Oral Tablet Take 1 Tablet by mouth every 6 hours as needed for Pain. 0 Active MEDICAL INSTRUCTIONS Stairlift needed for Sintia LEONARDO Shah 1950. [place] Customer Number: [id number] 1 Each 1 05/21/2021 Active Multivitamin Adult Oral Tablet Take by mouth 1 Tablet daily . 0 Active Calcium Citrate-Vitamin D 315-5 MG-MCG Oral Tablet Take 1 Tablet by mouth in the morning. 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 540 Tablet 1 05/12/2023 Active Divalproex Sodium ER 500 MG Oral Tablet Extended Release 24 Hour (Depakote ER)Indications:Gener alized nonconvulsive epilepsy without intractable epilepsy (HCC) TAKE [...] before bedtime. 10 Capsule 0 05/29/2023 Active oxyCODONE HCl 5 MG Oral Tablet (Oxy IR) Take 1 Tablet by mouth every 6 hours as needed for Pain, Severe. ongoing 20 Tablet 0 05/29/2023 Active Gabapentin 300 MG Oral Capsule (Neurontin)Indicatio ns:Lumbar degenerative disc disease Take 1 Capsule by mouth in the morning and 1 Capsule in the evening. 180 Capsule 3 06/09/2023 Active Benefiber Oral Tablet Chewable Take 1 Tablet by mouth in the morning. 0 06/13/2023 Active Alendronate Sodium 70 MG Oral Tablet (Fosamax)Indications :Age-related osteoporosis with current pathological fracture with routine healing, subsequent encounter Take 1 Tablet by mouth once a week. with 8 oz. water 30 minutes before first meal of the day. Remain upright for 30 min after taking tablet 15 Tablet 3 06/16/2023 Active documented as of this encounter (statuses as of 10/21/2023) Active Problems Problem Noted Date Diagnosed Date Closed wedge compression fracture of T6 vertebra 05/27/2023 Cognitive change 10/26/2022 At risk for falls 10/26/2022 JUSTIN (generalized anxiety disorder) 10/26/2022 Coronary artery disease invo lving [place] coronary artery of [place] heart without angina pectoris 12/15/2021 Diastolic dysfunction [...] as of this encounter (statuses as of 10/21/2023) Resolved Problems Problem Noted Date Diagnosed Date Resolved Date Encounter for examination fo r normal comparison and control in clinical research program 10/12/2018 03/13/2020 Overview: DO NOT DELETE [facility] DETECT Study: Project # [id number], Institutional Research Director: Israel Acevedo, PhD. SUMMARY: Goal: Establish test [...] contact study staff at ; after hours Institutional Research Director via the [facility] hospital shaper operator . Please contact study team before resolving/deleting from patients problem list. Study phone number: [phone]. Diagnosis changed due to Research Module. Go to Snapshot for study details. Encounter for examination fo r normal comparison and control in clinical research program 10/12/2018 04/11/2022 Overview: DO NOT DELETE [facility] [place] [facility] Study: Project # [id number], Institutional Research Director: Andi White, MS, MPH. SUMMARY: Goal: Establish [...] contact study staff at ; after hours Institutional Research Director via the [facility] hospital shaper operator . - Please contact study team before resolving/deleting from patients problem list. Study phone number: [phone]. Diagnosis changed due to Research Module. Go [...] 09/06/2009 09/03/2017 Overview: Dr. Lawrence Dx per [facility] records. 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 Dermatophytosis of nail 05/24/2003 11/0 08/2010 documented as of this encounter (statuses as of 10/21/2023) Immunizations Name Administration Dates Next Due COVID-19 mRNA, LNP-s, No Pre serve, 2-Dose Series (Pfizer) 11/09/2020,10/19/2020 Pneumococcal Conjugate Vacc, 13 Valent (Prevnar) 02/26/2017 Pneumococcal Polysaccharide PPV23 (Pneumovax) 03/08/2019 Season Influenza, Quad, PF, Adjuvanted, 65+ Yrs, IM (FLUAD) 04/26/2020 Seasonal Influenza, PF, 6 M & above, IM , (FluLaval or Fluzone) 09/07/2018,05/06/2017 Seasonal Influenza, Quadriva lent Hd (Fluzone Hd) 05/08/2023,05/07/2022,08/01/2021 Seasonal Influenza, Quadriva lent Hd, 65+ Yrs [...] money to buy more. Never true 10/17/19 23 Within the past 12 months, t he [...] No 05/27/2023 documented as of this encounter Plan of Treatment Upcoming Encounters Date Type Department Care Team (Late st Contact Info) Description 12/01/2023 1:00 PM EDT Cardiac Studies Cardiac Studies, Health system [address] [facility] [place] [address] 03/22/2024 4:20 PM EDT Office Visit Neurology [facility] [place] [address] [place] [address] Loren Rudolph MD [address] [place] [address] Scheduled Procedures Name Priority Associated Diagnoses Date/Ti me COLONOSCOPY FLEXIBLE PROXIMA L DIAGNOSTIC Recall Encounter for screening colonoscopy Health Maintenance Due Date Last Done Comments Cologuard 10/16/1996 Fecal Occult Blood Test 10/16/1996 Sigmoidoscopy 10/16/1996 Depression Screening 02/09/2022 02/09/2021 COVID-19 Vaccine (3 - 2022- season) 2023 11/09/2020, 10/19/2020 TSH 06/04/2024 06/04/2023, [...] Influenza Vaccine (FLU shot) Completed , 05/07/2022, 11/02/2021, Additional history exists GARDASIL-HPV IMMUNIZATION SERIES Aged Out No longer eligible based on patient's age to complete this topic Hepatitis B Aged Out No longer eligi ble based on patient's age to complete this topic MENINGOCOCCAL (MENACTRA/MENVEO) Aged Out No longer eligible based on patient's age to complete this topic documented as of this encounter Medical Devices Implanted Type Area Inspector Assemblies And Installations Device Identifier Shelf Expiration Date Model / Serial / Lot Envista Hydrophobic Acrylic Intraocular Lens Implanted:Qty: 1 on 04/10/2022 by Gregory Nagel DO at OR [facility] Left: Eye [employer] 12/09/2023 [id number] / [id number] / [id number] Envista Intraocular Lens Implanted:Qty: 1 on 06/05/2022 by Gregory Nagel DO at OR [facility] Right: Eye [employer]OM[employer] 07/10/2024 [id number] / [id number] / [id number] documented as of this encounter Procedures Procedure Name Priority Date/Time Associated Diagnosis Comments CARDIOLOGY SCANNED RESULT 10/21/2023 documented in this encounter Results * CARDIOLOGY SCANNED RESULT (10/21/2023) 10/21/2023 Loren Cerrato DO OTHER documented in this encounter Advance Directives Latest [...] Directives occurred with: Not Discussed Care Teams Strategic Marketing Leader Relationship Specialty Start Date End Date Kiki Hay MD [address] [place] [address] PCP - General Internal Medicine 07/29/21 documented as of this encounter
--- OUTSIDE RECORDS SUMMARY | 2023-11-05 06:54 | External Medical Summary ---
Author Name Unknown Address Unknown Organization [id number][facility] [place] [address] Laboratory Report Ordering Provider Test Date Status COLIN TREVINO 10/24/2023 07:08:55 Final Observation Date Value Abnormality Reference (Units ) Status BUN 10/24/2023 07:08:55 10 6-20 (mg/dL) Final Creatinine 10/24/2023 07:08:55 0.5 0.5-1.0 (mg/dL) Final Glomerular filtration rate/1.73 sq M.predicted [Volume Rate/Area] in Serum, Plasma or Blood by Creatinine-based formula (CKD-EPI) 10/24/2023 07:08:55 >90 >=60 (mL/min) Final eGFR is calculated based on the CKD-EPI 2020 equation SODIUM 10/24/2023 07:08:55 130 Below low normal 135 -146 (mmol/L) Final Potassium 10/24/2023 07:08:55 4.5 3.5-5.1 (m mol/L) Final Cl 10/24/2023 07:08:55 95 Below low normal 98- 107 (mmol/L) Final CO2 10/24/2023 07:08:55 25 22-32 (mmo l/L) Final Anion gap 10/24/2023 07:08:55 10 7-15 (mmol /L) Final Glucose 10/24/2023 07:08:55 93 70-120 (mg /dL) Final Calcium 10/24/2023 07:08:55 8.9 8.4-10.2 ( mg/dL) Final Performing Location [facility] [place] [address]
--- OUTSIDE RECORDS SUMMARY | 2023-11-05 06:54 | External Medical Summary ---
Author Name Unknown Address Unknown Organization K09[facility] [place] [address] Laboratory Report Ordering Provider Test Date Status COLIN TREVINO 10/14/2023 07:01:40 Final Observation Date Value Abnormality Reference (Units ) Status BUN 10/14/2023 07:01:40 9 6-20 (mg/dL) Final Creatinine 10/14/2023 07:01:40 0.5 0.5-1.0 (mg/dL) Final Glomerular filtration rate/1.73 sq M.predicted [Volume Rate/Area] in Serum, Plasma or Blood by Creatinine-based formula (CKD-EPI) 10/14/2023 07:01:40 >90 >=60 (mL/min) Final eGFR is calculated based on the CKD-EPI 2020 equation SODIUM 10/14/2023 07:01:40 130 Below low normal 135 -146 (mmol/L) Final Potassium 10/14/2023 07:01:40 3.9 3.5-5.1 (m mol/L) Final Cl 10/14/2023 07:01:40 92 Below low normal 98- 107 (mmol/L) Final CO2 10/14/2023 07:01:40 27 22-32 (mmo l/L) Final Anion gap 10/14/2023 07:01:40 11 7-15 (mmol /L) Final Glucose 10/14/2023 07:01:40 95 70-120 (mg /dL) Final Calcium 10/14/2023 07:01:40 9.0 8.4-10.2 ( mg/dL) Final Performing Location [facility] [place] [address]
--- OUTSIDE RECORDS SUMMARY | 2023-11-05 06:54 | External Medical Summary | Summary of Care ---
Author Name Unknown Organization [facility] Address [address] [place] [address] Phone [phone] Care Team Providers Care Glove Cutter Name Role Phone Kiki Hay MD Primary Care Provider [phone] Encounter Details Date Type Department Care Team (Late st Contact Info) Description 10/31/2023 1:00 PM EDT Home Visit Care Coordination and Integration [address] [place] [address] Destinee Costa, Community Health Component Engineer [address] [place] [address] Allergies Active Allergy Reactions Criticality [...] Stairlift needed for Sintia LEONARDO Shah 1950. [place] Customer Number: [id number] 1 Each 1 05/21/2021 Active Multivitamin Adult [...] disorder) 10/26/2022 Coronary artery disease invo lving [place] coronary artery of [place] heart without angina pectoris 12/15/2021 Diastolic dysfunction [...] 10/12/2018 03/13/2020 Overview: DO NOT DELETE [facility] DETECT Study: Project # [id number], Railroad Wheels And Axle Inspector: Israel Acevedo, PhD. SUMMARY: Goal: Establish test [...] contact study staff at ; after hours Railroad Wheels And Axle Inspector via the [facility] router machine operator . Please contact study team before resolving/deleting from patients problem list. Study phone number: [phone]. Diagnosis changed due to Research Module. Go to Snapshot for study details. Encounter for examination fo r normal comparison and control in clinical research program 10/12/2018 04/11/2022 Overview: DO NOT DELETE - [facility] Study: Project # [id number], Railroad Wheels And Axle Inspector: Andi White, MS, MPH. SUMMARY: Goal: Establish [...] contact study staff at ; after hours Railroad Wheels And Axle Inspector via the [facility] hospital router machine operator . - Please contact study team before resolving/deleting from patients problem list. Study phone number: [phone]. Diagnosis changed due to Research Module. Go [...] 09/06/2009 09/03/2017 Overview: Dr. Lawrence Dx per [facility] records. Feels she had psychosis from [...] Progress Notes * Destinee Costa, Community Health Component Engineer - 10/31/2023 1:40 PM EDT Telemedicine visit: No Community Health Component Engineer (TIFFANIE) documentation: CHW facilitated home visit with [...] Health Worker 1 Support Services/[facility] [email or web address] documented in this encounter Plan of Treatment Upcoming Encounters Date Type Department Care Team (Late st Contact Info) Description 12/01/2023 1:00 PM EDT Cardiac Studies Cardiac Studies, [facility] [address] [facility] [place] [address] 03/22/2024 4:20 PM EDT Office Visit Neurology [facility] [address] [place] [address] Loren Rudolph MD [address] [place] [address] 04/30/2024 2:00 PM EDT Office Visit General Internal Medicine [facility] [address] [place] [address] Kiki Hay MD [address] [place], [place] [address] Scheduled Procedures Name Priority Associated Diagnoses Date/Ti [...] this encounter Medical Devices Implanted Type Area Chestnut Tanner Device Identifier Shelf Expiration Date Model / Serial / Lot Envista Hydrophobic Acrylic Intraocular Lens Implanted:Qty: 1 on 04/10/2022 by Gregory Nagel, at OR [facility] Left: Eye [employer]CH [employer]OM[employer] 12/09/2023 [id number] / [id number] / [id number] Envista Intraocular Lens Implanted:Qty: 1 on 06/05/2022 by Gregory Nagel DO at OR [facility] Right: Eye BAUSCH [employer] LOMB 07/10/2024 [id number] / [id number] / [id number] documented as of this encounter Advance Directives [...] Directives occurred with: Not Discussed Care Teams Glove Cutter Relationship Specialty Start Date End Date Kiki Hay MD [address] [facility] [place] [address] PCP - General Internal Medicine 07/29/21 documented as of this encounter
--- OUTSIDE RECORDS SUMMARY | 2023-11-05 06:54 | External Medical Summary ---
Author Name Unknown Address Unknown Organization [facility] [place] [address] Laboratory Report Ordering Provider Test Date Status DEXTER SHARP 10/16/2023 06:29:22 Final Observation Date Value Abnormality Reference (Units ) Status BUN 10/16/2023 06:29:22 7 6-20 (mg/dL) Final Creatinine 10/16/2023 06:29:22 0.5 0.5-1.0 (mg/dL) Final Glomerular filtration rate/1.73 sq M.predicted [Volume Rate/Area] in Serum, Plasma or Blood by Creatinine-based formula (CKD-EPI) 10/16/2023 06:29:22 >90 >=60 (mL/min) Final eGFR is calculated based on the CKD-EPI 2020 equation SODIUM 10/16/2023 06:29:22 129 Below low normal 135 -146 (mmol/L) Final Potassium 10/16/2023 06:29:22 4.5 3.5-5.1 (m mol/L) Final Cl 10/16/2023 06:29:22 91 Below low normal 98- 107 (mmol/L) Final CO2 10/16/2023 06:29:22 27 22-32 (mmo l/L) Final Anion gap 10/16/2023 06:29:22 11 7-15 (mmol /L) Final Glucose 10/16/2023 06:29:22 99 70-120 (mg /dL) Final Calcium 10/16/2023 06:29:22 9.2 8.4-10.2 ( mg/dL) Final Performing Location [facility] [place] [address]
[2023-11-05] MEDS: CYANOCOBALAMIN (B-12) 500 MCG TABLET PO SCH (07:33)
[2023-11-05] MEDS: CALCIUM 600MG + VIT D 400 IU TAB PO SCH (07:33)
[2023-11-05] MEDS: FLUTICASONE PROPIONATE NA SPR 16 GM BTL SCH (07:34)
[2023-11-05 08:02] LABS: Basophils # (auto) 0.02 K/uL (0.00-0.20); Basophils % (auto) 0.4 %; Eosinophils # (auto) 0.14 K/uL (0.00-0.50); Eosinophils % (auto) 2.8 %; Hemoglobin 13.2 g/dl (12.0-16.0); Immature Granulocytes # (auto) 0.01 K/uL (0.01-0.20); Immature Granulocytes % (auto) 0.2 %; Lymphocytes # (auto) 0.83 K/uL (1.20-3.40); Lymphocytes % (auto) 16.7 %; Mean Corpuscular Hemoglobin 32.4 pg (25.0-34.0); Mean Corpuscular Hgb Conc 34.7 g/dL (32.0-36.0); Mean Corpuscular Volume 93.4 fL (80.0-100.0); Mean Platelet Volume 9.4 fL (9.4-12.4); Monocytes # (auto) 0.68 K/uL (0.11-0.59); Monocytes % (auto) 13.7 %; Neutrophils # (auto) 3.29 K/uL (1.40-6.50); Neutrophils % (auto) 66.2 %; Platelet Count 195 K/uL (130-400); RDW Coefficient of Variation 13.6 % (11.5-14.5); RDW Standard Deviation 46.6 fL (36.4-46.3); Red Blood Count 4.07 M/uL (4.20-5.40); White Blood Count 4.97 K/ul (4.8-10.8)
[2023-11-05 08:19] LABS: Calcium 8.8 mg/dl (8.6-10.3); Creatinine Clr Calc Pharmacy 145.3 ml/min; Est GFR (African American) 120.6 ml/min; Est GFR (Non-African American) 104.1 ml/min; Potassium 3.9 mmol/L (3.5-5.1)
--- NOTE | 2023-11-05 08:25 | Hospitalist Progress Note ---
Date of Service November 05, 2023 Assessment & Plan (1) Fall: (2) Acute knee pain: Plan: Ms. Loza is a 74-year-old female with history of epilepsy, heart failure with reduced ejection fraction EF 25 to 30%, nonobstructive CAD, mild aortic stenosis, Pulmonary hypertension, PE and DVT, obstructive sleep apnea, mood disorder, hypothyroidism etc. presenting with an episode of loss of coordination, fall on 11/03. Patient with history of ongoing mechanical falls at home and severe fear for falling. Denies any new symptoms--urinary, bowel, etc. States she otherwise feels fine. 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 #Mild aortic stenosis #Pulmonary hypertension -Not on active treatment at this time #PE/DVT no longer on eliquis 2/2 falls DVT prophylaxis with Lovenox #Obstructive sleep apnea On CPAP Mood disorder Hypothyroidism Continue Synthroid Full code as per patient Disposition PT/OT, plan for SNF, discussed joint terminal attack controller care with CM Admission and Anticipated Discharge Date Admission Date: November 04, 2023 Subjective No acute events overnight, reports feeling very scared to fall Denies any new pain, just chronic pain States that she has sustained two falls at home Physical Exam Constitutional: WD/WN, vitals as above Respiratory: normal respiratory effort, lungs clear to auscultation Cardiovascular: RRR, no murmur, no edema Gastrointestinal (Abdomen): normal bowel sounds, soft, nontender, no hepatosplenomegaly Musculoskeletal: observed patient stand and pivot to bedside chair after multiple positive reinforcements given from aides; weak and unsteady, required aid in hand placement on walker Results & Data Results & Data Vital Signs (Past 12 Hours) Vital Signs Temp Pulse Pulse Pulse Resp BP BP 11/05/23 07:48 36.6 C 74 18 117/74 11/05/23 07:01 72 11/05/23 03:16 36.4 C L 74 18 130/75 11/05/23 01:05 77 11/04/23 22:26 11/04/23 22:16 36.8 C 73 18 109/80 11/04/23 20:30 79 19 Pulse Ox O2 Del Method 11/05/23 07:48 91 Room Air 11/05/23 07:01 11/05/23 03:16 95 Room Air 11/05/23 01:05 11/04/23 22:26 Room Air 11/04/23 22:16 94 Room Air 11/04/23 20:30 Laboratory Results Short CBC 11/05/23 Range/Units 07:43 WBC 4.97 (4.8-10.8) K/ul Hgb 13.2 (12.0-16.0) g/dl Hct 38.0 (37.0-47.0) % Plt Count 195 (130-400) K/uL BMP 11/05/23 07:43 Sodium 131 L Potassium 3.9 Chloride 99 Carbon Dioxide 26 BUN 10 Creatinine 0.40 L Glucose 92 Calcium 8.8 Diagnostic Findings MRI of brain unremarkable MRI CT hips/pelvis/knees without fracture Medications Administered Home Medications Medication Instructions Recorded Confirmed Last Taken acetaminophen 500 mg tablet 500 mg PO Q6H PRN Pain 10/31/21 11/04/23 11/04/23 (Tylenol Extra Strength) divalproex 500 mg tablet,extended 1,000 mg PO HS 10/31/21 11/04/23 11/03/23 release 24 hr levothyroxine 75 mcg tablet 75 mcg PO DAILYBB 10/31/21 11/04/23 11/04/23 (Euthyrox) oxcarbazepine 150 mg tablet 450 mg PO BID 10/31/21 11/04/23 11/04/23 08:00 gabapentin 300 mg capsule 300 mg PO AMPM 09/28/22 11/04/23 11/04/23 08:00 cyanocobalamin (vitamin B-12) 1,000 mcg PO QAM 01/26/23 11/04/23 11/04/23 1,000 mcg tablet (Vitamin B-12) glucosamine sulfate 750 mg tablet 750 mg PO DAILY 01/26/23 11/04/23 11/04/23 levetiracetam 750 mg tablet 750 mg PO BID #60 tabs 04/20/23 11/04/23 11/04/23 08:00 calcium citrate 315 mg-vitamin D3 1 tab PO QAM 10/07/23 11/04/23 11/04/23 5 mcg (200 unit) tablet cranberry 500 mg capsule 500 mg PO BID 10/07/23 11/04/23 11/04/23 08:00 docusate sodium 100 mg tablet 100 mg PO BID 10/07/23 11/04/23 11/04/23 08:00 fluticasone propionate 50 2 spray NA DAILY #16 grams 10/13/23 11/04/23 11/04/23 mcg/actuation nasal spray,suspension Active Medications Generic Name Dose Route Start Last Admin Trade Name Imelda PRN Reason Stop Dose Admin Calcium/Vitamin D 1 tab 11/05/23 09:00 11/05/23 07:33 Calcium 600mg + Vit D 400 Iu Tab PO 12/05/23 08:59 1 tab QAM SACHA Administration Cyanocobalamin 1,000 mcg 11/05/23 09:00 11/05/23 07:33 Cyanocobalamin (B-12) 500 Mcg Tablet PO 12/05/23 08:59 1,000 mcg QAM SACHA Administration Divalproex Sodium 1,000 mg 11/04/23 22:15 11/04/23 23:58 Divalproex Extended Release 500 Mg Tab PO 12/04/23 22:14 1,000 mg HS SACHA Administration Docusate Sodium 100 mg 11/04/23 22:15 11/05/23 07:34 Docusate Sodium 100 Mg Cap PO 12/04/23 22:14 100 mg BID SACHA Administration Fluticasone Propionate 2 sprays 11/05/23 09:00 11/05/23 07:34 Fluticasone Propionate Na Spr 16 Gm Btl NA 12/05/23 08:59 2 sprays DAILY SACHA Administration Gabapentin 300 mg 11/04/23 22:15 11/05/23 09:11 Gabapentin 300 Mg Cap PO 12/04/23 22:14 300 mg BID SACHA Administration Levetiracetam 750 mg 11/04/23 22:15 11/05/23 07:33 Levetiracetam 250 Mg Tab PO 12/04/23 22:14 750 mg BID SACHA Administration Levothyroxine Sodium 75 mcg 11/05/23 06:30 11/05/23 06:19 Levothyroxine Sodium 75 Mcg Tablet PO 12/05/23 06:29 75 mcg DAILYBB SACHA Administration Oxcarbazepine 450 mg 11/04/23 22:15 11/05/23 07:33 Oxcarbazepine 150 Mg Tablet PO 12/04/23 22:14 450 mg BID SACHA Administration
[2023-11-05] MEDS ORDERED: GLUCOSAMINE SULFATE 750 MG PO SCH (09:00)
--- NOTE | 2023-11-05 16:00 | Electrocardiogram Report ---
Test Reason : Blood Pressure : / mmHG Vent. Rate : 070 BPM Atrial Rate : 070 BPM P-R Int : 210 ms QRS Dur : 070 ms QT Int : 412 ms P-R-T Axes : 051 054 050 degrees QTc Int : 444 ms Sinus rhythm with 1st degree A-V block Otherwise normal ECG When compared with ECG of 07-OCT-2023 16:50, Minimal criteria for Anterior infarct are no longer Present Confirmed by Yehuda Beebe ([id number]) on 11/05/2023 4:00:15 PM Referred By: REFERRED SELF Confirmed By:Yehuda Beebe
[2023-11-05] MEDS: ENOXAPARIN INJ 40 MG/0.4 ML SYR SQ SCH (18:13)
[2023-11-06 04:28] LABS: Appearance Urine Clear (Clear); Bilirubin Urine Negative (Negative); Blood Urine Negative (Negative); Color Urine Dark Yellow; Epithelial Cell Urine Auto >30 /lpf (0-5); Glucose Urine UA Negative (Negative); Ketones Urine 1+ (Negative); Leukocyte Esterase Urine 1+ (Negative); Nitrite Urine Negative (Negative); Protein Urine Trace (Negative); Specific Gravity Urine 1.031 (1.000-1.030); Urobilinogen Urine Negative (Negative)
[2023-11-06 05:25] LABS: RBC Urine Automated 0-4 /hpf (0-4)
[2023-11-06 05:26] LABS: Bacteria Urine Automated 1+ (Negative)
[2023-11-06 07:02] LABS: Hematocrit (blood only) 35.8 % (37.0-47.0); Hemoglobin 12.4 g/dl (12.0-16.0); Mean Corpuscular Hemoglobin 32.5 pg (25.0-34.0); Mean Corpuscular Hgb Conc 34.6 g/dL (32.0-36.0); Mean Platelet Volume 9.5 fL (9.4-12.4); Platelet Count 201 K/uL (130-400); RDW Coefficient of Variation 13.6 % (11.5-14.5); RDW Standard Deviation 46.5 fL (36.4-46.3); Red Blood Count 3.81 M/uL (4.20-5.40); White Blood Count 4.47 K/ul (4.8-10.8)
[2023-11-06] MEDS ORDERED: cefTRIAXone SODIUM 1,000 MG in DEXTROSE 5 % MINI-B 50 ML IV SCH (07:15)
[2023-11-06 07:33] LABS: BUN Creatinine Ratio 25.5 (10-20); Calcium 8.6 mg/dl (8.6-10.3); Creatinine Clr Calc Pharmacy 115.1 ml/min; Est GFR (African American) 111.3 ml/min; Est GFR (Non-African American) 96.1 ml/min; Magnesium 1.8 mg/dl (1.7-2.4); Phosphorus 3.5 mg/dl (2.5-4.9); Potassium 4.4 mmol/L (3.5-5.1)
[2023-11-06] MEDS: cefTRIAXone SODIUM 2,000 MG in DEXTROSE 5 % MINI-B 50 ML IV SCH (08:05)
--- NOTE | 2023-11-06 13:27 | Hospitalist Progress Note ---
Date of Service November 06, 2023 Assessment & Plan (1) Fall: (2) Weakness: (3) Contusion of rib on left side: (4) Acute knee pain: (5) Constipation: Plan This is a 74-year-old female with history of epilepsy, heart failure with reduced ejection fraction EF 25 to 30%, nonobstructive CAD, mild aortic stenosis, pulmonary hypertension, PE and DVT, obstructive sleep apnea, mood disorder, hypothyroidism etc. presenting with an episode of loss of coordination, fall on 11/03. Falls Ambulatory dysfunction Generalized weakness Patient with history of ongoing mechanical falls at home and severe fear for falling. Denies any new symptoms--urinary, bowel, etc Case management able to find out history of prior shelter residency given increased care at home, which was confirmed by , who is concerned about ability for patient to return home Patient took a sleep aid the night before this event, likely contributing to fall and loss coordination Brain MRI normal Bilateral hip and pelvis imaging without fracture PT/OT recommending SNF rehab Excepted to [facility], plan for discharge tomorrow Chronic knee pain, acute pain resolved Status post fall Likely secondary to osteoarthritis, severe tricomparmental osteoarthritis in right knee/ left moderate Epilepsy, stable on regimen Continue Keppra 750mg BID, Depakote 1000mg qhs, gabapentin 300mg BID Possible UTI UA with 1+ leuk esterase, 1+ bacteria Started empirically on Rocephin, reports improvement Follow urine culture Heart failure with reduced ejection fraction Euvolemic Nonobstructive CAD No cardiac symptoms History syncope 2020, s/p loop recorder 2021 Falls previously thought secondary to absence seizure activity in the setting of noncompliance with anti epileptic medication Mild aortic stenosis Pulmonary hypertension Not on active treatment at this time PE/DVT No longer on eliquis 2/2 falls DVT prophylaxis with Lovenox Obstructive sleep apnea CPAP HS Mood disorder Hypothyroidism Continue Synthroid Constipation No bowel movement in 2 days on colace BID, struggles with chronic constipation Added Senokot this evening Full code as per patient Disposition PT/OT, plan for discharge to [facility] SNF rehab tomorrow Patient seen in collaboration with Dr. Shea. Please see addendum. I spent a total of 45 minutes coordinating, documenting, and providing care for this patient excluding time spent in the performance of separately billed services. Admission and Anticipated Discharge Date Admission Date: November 04, 2023 Supervising Physician Co-Signing Physician Notes I have seen and discussed the case with the collaborating advanced practitioner. I agree with the above H&P. I have reviewed and confirmed the patients medical history, the findings on physical examination, and the patients diagnosis and treatment plan with Henok DANIELS and agree with the information documented. Patient evaluated in bedside chair. No acute events. Agreeable to rehab. GENERAL APPEARANCE: AxOx4, generally well-appearing female, no acute distress. HEENT: NC, AT. MMM. EOMI, clear conjunctiva, oropharynx clear. NECK: Supple without lymphadenopathy. No stiffness or restricted ROM. HEART: Normal rate and regular rhythm, normal S1/S1, no m/r/g LUNGS: CTAB, moving air well. No crackles or wheezes are heard. ABDOMEN: Soft, nontender, nondistended with good bowel sounds heard. EXTREMITIES: Without cyanosis, clubbing or edema. NEUROLOGICAL: Grossly nonfocal. Alert and oriented, moving all 4 extremities. CN not formally tested but appear grossly intact Skin: Warm and dry without any rash. Ms. Loza is a 74-year-old female with history of epilepsy, heart failure with reduced ejection fraction EF 25 to 30%, nonobstructive CAD, mild aortic stenosis, Pulmonary hypertension, PE and DVT, obstructive sleep apnea, mood disorder, hypothyroidism etc. presenting with an episode of loss of coordination, fall on 11/03. Family agreeable to rehab, likely [facility] with plans for dispo tomorrow. #Mechanical fall #ambulatory dysfunction Rehab #Chronic knee pain, acute pain resolved Status post fall Likely secondary to osteoarthritis, severe tricomparmental osteoarthritis in right knee/ left moderate Tylenol prn Voltaren q8h bilateral knees #epilepsy, stable on regimen Continue Keppra 750mg BID, Depakote 1000mg qhs, gabapentin 300mg BID #Heart failure with reduced ejection fraction Euvolemic #Nonobstructive CAD No cardiac symptoms #History syncope 2020, s/p loop recorder 2021 Falls previously thought secondary to absence seizure activity in the setting of noncompliance with anti epileptic medication. #Mild aortic stenosis #Pulmonary hypertension -Not on active treatment at this time #PE/DVT no longer on eliquis 2/2 falls DVT prophylaxis with Lovenox #Obstructive sleep apnea On CPAP #Mood disorder continue home regimen Hypothyroidism Continue Synthroid Full code as per patient Disposition PT/OT, Dispo tomorrow I spent a total of 25 minutes coordinating, documenting, and providing care for this patient excluding time spent in the performance of separately billed services. All of the aforementioned completed outside of collaborating with the assigned advanced practitioner for a full treatment plan. I have reviewed the advanced practitioner's documentation, and I agree with, and take responsibility for the plan of care Subjective Patient seen and examined in 283 bed 2 in follow-up for falls, generalized weakness. Feeling better today, more motivated to move. Denies any acute changes overnight. Has been started on IV Rocephin for possible UTI, culture pending. Interested in rehab at time of discharge. Denies any fever, chills, lightheadedness, shortness of breath, nausea, vomiting, abdominal pain, dysuria, diarrhea. No bowel movement in past 2 days, struggles with chronic constipation. Review of Systems Review of Systems: At least ten systems reviewed and negative except as noted in the HPI. Physical Exam Physical Exam: Gen: WD/WN, NAD, sitting in bedside chair, A&Ox3 HEENT: Normocephalic, atraumatic, conjunctivae moist, sclerae anicteric, mucous membranes moist Lung: Clear to Auscultation bilaterally Heart: Regular rate, regular rhythm Abdomen: Soft, NT, ND +BS x 4 Extremities: no edema Skin: Warm, no rash Results & Data Results & Data Vital Signs (Past 12 Hours) Vital Signs Temp Pulse Pulse Resp BP BP Pulse Ox 11/06/23 11:28 37.4 C 91 H 17 126/80 97 11/06/23 07:55 36.6 C 74 17 135/81 94 11/06/23 07:46 11/06/23 07:20 68 11/06/23 04:05 36.7 C 74 20 174/96 H 94 O2 Del Method 11/06/23 11:28 Room Air 11/06/23 07:55 Room Air 11/06/23 07:46 Room Air 11/06/23 07:20 11/06/23 04:05 Room Air Laboratory Results Short CBC 11/06/23 Range/Units 06:05 WBC 4.47 L (4.8-10.8) K/ul Hgb 12.4 (12.0-16.0) g/dl Hct 35.8 L (37.0-47.0) % Plt Count 201 (130-400) K/uL BMP 11/06/23 06:05 Sodium 134 L Potassium 4.4 Chloride 102 Carbon Dioxide 28 BUN 13 Creatinine 0.51 L Glucose 86 Calcium 8.6 Urine 11/06/23 Range/Units 03:10 Urine Color Dark Yellow Urine Appearance Clear (Clear) Urine pH 6.0 (4.5-7.5) Ur Specific Adah 1.031 H (1.000-1.030) Urine Protein Trace H (Negative) Urine Glucose (UA) Negative (Negative) Diagnostic Findings Chest X-Ray 11/04/23 15:51 XR chest 1V portable CLINICAL HISTORY: weakness TECHNIQUE: Single frontal radiograph of the chest was obtained. Comparison: Comparison is made to chest radiograph 10/12/2023 FINDINGS: No lines and tubes are seen. The cardiomediastinal silhouette is normal. The lungs are clear. No evidence of pleural effusion or pneumothorax. IMPRESSION: No acute chest disease. ACT 112: Negative or not required by law. Electronically signed by: Tenzin Hussein M.D. 11/04/2023 4:29 PM Knee X-Ray 11/04/23 16:04 RIGHT KNEE 3 VIEWS CLINICAL HISTORY: Fall. Right knee pain. FINDINGS: AP, crosstable lateral, and sunrise views of the right knee are compared to study dated 10/07/2023. The skeletal structures are osteopenic. No fracture is seen. There is moderate tricompartmental degenerative joint space narrowing. There are marginal osteophytes and patellar enthesophytes. A calci fied fabella is incidentally noted. There is no significant joint effusion. Soft tissue swelling is seen around the knee. Bony overgrowth is noted along the anterior tibial tuberosity. IMPRESSION: 1. Soft tissue swelling with no fracture identified. 2. Osteopenia and degenerative change as above. Electronically signed by: Janusz Casillas M.D. 11/04/2023 4:32 PM Brain MRI 11/04/23 19:13 Exam(s): MRI HEAD Without Contrast EXAM: MR Head Without Intravenous Contrast CLINICAL HISTORY: Reason for exam: fall, loss of balance, r/o CVA. TECHNIQUE: Magnetic resonance images of the head/brain without intravenous contrast in multiple planes. COMPARISON: Head CT October 07, 2023 FINDINGS: Brain: Global parenchymal atrophy. No restricted diffusion. No intracranial hemorrhage, mass-effect, or cerebral edema. Ventricles: Unremarkable. No ventriculomegaly. Bones/joints: Unremarkable. No acute fracture. Sinuses: Unremarkable as visualized. No acute sinusitis. Mastoid air cells: Unremarkable as visualized. No mastoid effusion. Orbits: Unremarkable as visualized. IMPRESSION: No acute abnormality. Electronically signed by: Finn Murphy MD 11/04/23 22:[address] 11/04/23 19:13 Exam(s): CT LEFT HIP Without Contrast EXAM: CT Left Lower Extremity Without Intravenous Contrast, Hip CLINICAL HISTORY: Reason for exam: fall, pain, r/o fracture. TECHNIQUE: Axial computed tomography images of the left hip without intravenous contrast. CTDI is 37 mGy and DLP is 166.35 mGy-cm. Automated exposure control was utilized for the study. A dose lowering technique was utilized adhering to the principles of ALARA. COMPARISON: No relevant prior studies available. FINDINGS: Bones/joints: No acute fracture or malalignment. Left hip joint space is preserved. No joint effusion. Degenerative changes at the pubic symphysis and left SI joint. Soft tissues: Unremarkable. IMPRESSION: No acute fracture or malalignment. Electronically signed by: Finn Murphy MD 11/04/23 20:[address] 11/04/23 19:13 Exam(s): CT LEFT KNEE Without Contrast EXAM: CT Left Lower Extremity Without Intravenous Contrast, Knee CLINICAL HISTORY: Reason for exam: fall, pain, r/o fracture. TECHNIQUE: Axial computed tomography images of the left knee without intravenous contrast. CTDI is 24.91 mGy and DLP is 565.26 mGy-cm. Automated exposure control was utilized for the study. A dose lowering technique was utilized adhering to the principles of ALARA. COMPARISON: No relevant prior studies available. FINDINGS: No acute fracture. The bones are osteopenic. Mild to moderate tricompartmental osteoarthritis. Trace joint effusion. Mitchell's cyst present. No dislocation. IMPRESSION: No acute fracture. Electronically signed by: Finn Murphy MD 11/04/23 20:[address] 11/04/23 19:13 Exam(s): CT RIGHT KNEE Without Contrast EXAM: CT Right Lower Extremity Without Intravenous Contrast, Knee CLINICAL HISTORY: Reason for exam: fall, pain, r/o fracture. TECHNIQUE: Axial computed tomography images of the right knee without intravenous contrast. CTDI is 24.91 mGy and DLP is 565.26 mGy-cm. Automated exposure control was utilized for the study. A dose lowering technique was utilized adhering to the principles of ALARA. COMPARISON: No relevant prior studies available. FINDINGS: Bones/joints: No acute fracture. Moderate to severe tricompartmental osteoarthritis most pronounced in the patellofemoral compartment. Trace joint effusion. No dislocation. Soft tissues: Unremarkable. IMPRESSION: 1. No acute fracture. 2. Moderate to severe tricompartmental osteoarthritis most pronounced in the patellofemoral compartment. Electronically signed by: Finn Murphy MD 11/04/23 20:[address] 11/04/23 19:13 Exam(s): CT PELVIS Without Contrast EXAM: CT Pelvis Without Intravenous Contrast CLINICAL HISTORY: Reason for exam: fall, pain, r/o fracture. TECHNIQUE: Axial computed tomography images of the pelvis without intravenous contrast. CTDI is 36.69 mGy and DLP is 862.15 mGy-cm. Automated exposure control was utilized for the study. A dose lowering technique was utilized adhering to the principles of ALARA. COMPARISON: No relevant prior studies available. FINDINGS: Intraperitoneal space: Unremarkable. No free air. No significant fluid collection. Bladder: Unremarkable. Bones/joints: No acute fracture. Chronic appearing fracture deformities at L3 and L4. At least moderate degenerative changes within the lumbar spine. Degenerative changes also present at the pubic symphysis and SI joints. Hip joint spaces are preserved. No joint effusion. No dislocation. Soft tissues: Unremarkable. IMPRESSION: No acute fracture. Electronically signed by: Finn Murphy MD 11/04/23 20:[address] 11/04/23 22:15 Exam(s): CT RIGHT HIP Without Contrast EXAM: CT Right Lower Extremity Without Intravenous Contrast, Hip CLINICAL HISTORY: Reason for exam: fall, pain, r/o fracture. TECHNIQUE: Axial computed tomography images of the right hip without intravenous contrast. CTDI is 38 mGy and DLP is 988 mGy-cm. Automated exposure control was utilized for the study. A dose lowering technique was utilized adhering to the principles of ALARA. COMPARISON: No relevant prior studies available. FINDINGS: Bones/joints: No acute fracture or malalignment. Soft tissues: Unremarkable. IMPRESSION: No acute fracture or malalignment. Electronically signed by: Finn Murphy MD 11/05/23 00:19 AM
[2023-11-06] MEDS: DICLOFENAC SOD 1% GEL 100 GM TUBE EXT SCH (15:31)
[2023-11-06] MEDS: SENNA 8.6 MG TAB PO ONE (17:43)
[2023-11-06] MEDS: ACETAMINOPHEN 500 MG TAB PO PRN (20:23)
[2023-11-06] MEDS: CALCIUM CARBONATE 500 MG CHEWABLE TAB PO PRN (22:39)
--- NOTE | 2023-11-07 08:15 | Discharge Summary ---
Discharge Summary Date of Service November 07, 2023 Notes For Next Care Provider Falls, generalized weakness in setting of suspected uti Medication Changes From Visit cefdinir for UTI Admission HPI Per Admitting Provider 74-year-old female with history of epilepsy, heart failure with reduced ejection fraction EF 25 to 30%, nonobstructive CAD, mild aortic stenosis, Pulmonary hypertension, PE and DVT, obstructive sleep apnea, mood disorder, hypothyroid etc. presenting with an episode of loss of coordination, fall. Patient was recently admitted to [facility] this month for acute exacerbation of CHF, and COVID-19 infection. She was discharged to home. She was doing fine until 2 nights ago when patient took a "" sleeping pill" that she was able to obtain from a family member, patient does not remember the exact name. Yesterday, around 5 AM, the patient woke up to use the bathroom, but felt that she was not walking right, "uncoordinated ". While walking back to her bed, patient subsequently fell landing on her buttocks. She called her to help her get up. Patient was fine throughout the rest of the day. Today, by climbing up the stairs, patient felt that her knees were giving out but was able to make it to the lift chair, reached the second floor and was able to walk to the bathroom to use the toilet. While getting up from the toilet seat, the patient felt that her knees were giving out again and could not get up on her own. She decided to call EMT. At the ER, patient's knee x-ray showed soft tissue swelling of the right knee. On exam, patient was seen resting in bed, comfortable, not in distress. Reports bilateral knee pain chronic but progressively getting worse as per patient. She has some buttock pain but no back pain, leg weakness or numbness. She denies having any other pain in her body. Denies chest pain, palpitations, shortness of breath, dizziness, etc. Admission Exam Per Admitting Provider General- oriented x 3, not in distress, speaks in sentences with no effort or accessory muscle use Head- atraumatic Eyes- PERRL, EOMI, anicteric ENT- oropharynx clear Neck- supple, no JVD, no adenopathy, no thyromegaly; carotids +2/2, no bruits appreciated Lungs- clear to auscultation bilaterally, no rales/wheezes Heart- normal rate, regular rhythm; no murmur, no gallop, no rub appreciated Abdomen- normal bowel sounds, nondistended, soft, nontender, no masses or hepatosplenomegaly Extremities- no pretibial edema, no calf tenderness; peripheral pulses intact Bilateral knees:(+) Mild edema, mild tenderness, no erythema, no warmth, full range of motion due to pain Neuro- alert, oriented x 3; CN 2-12 grossly intact; motor 5/5 bilaterally;sensation 100% on all extremities; no other gross focal neurologic deficits Skin- warm & dry Principal Dx & Hospital Course #1 = Principal Diagnosis (1) Fall: (2) Weakness: (3) Contusion of rib on left side: (4) Acute knee pain: (5) Constipation: Plan This is a 74-year-old female with history of epilepsy, heart failure with reduced ejection fraction EF 25 to 30%, nonobstructive CAD, mild aortic stenosis, pulmonary hypertension, PE and DVT, obstructive sleep apnea, mood disorder, hypothyroidism etc. presenting with an episode of loss of coordination, fall on 11/03. Falls Ambulatory dysfunction Generalized weakness Patient with history of ongoing mechanical falls at home and severe fear for falling. Denies any new symptoms--urinary, bowel, etc Case management able to find out history of prior retirement residency given increased care at home, which was confirmed by , who is concerned about ability for patient to return home Patient took a sleep aid the night before this event, likely contributing to fall and loss coordination Brain MRI normal Bilateral hip and pelvis imaging without fracture PT/OT recommending SNF rehab Accepted to [facility], plan for discharge tomorrow Chronic knee pain, acute pain resolved Status post fall Likely secondary to osteoarthritis, severe tricomparmental osteoarthritis in right knee/ left moderate Epilepsy, stable on regimen Continue Keppra 750mg BID, Depakote 1000mg qhs, gabapentin 300mg BID Possible UTI UA with 1+ leuk esterase, 1+ bacteria Started empirically on Rocephin, reports improvement Transition to Cefdinir on discharge to complete course Urine cx pending Heart failure with reduced ejection fraction Euvolemic Nonobstructive CAD No cardiac symptoms History syncope 2020, s/p loop recorder 2021 Falls previously thought secondary to absence seizure activity in the setting of noncompliance with anti epileptic medication Mild aortic stenosis Pulmonary hypertension Not on active treatment at this time PE/DVT No longer on eliquis 09/12 falls DVT prophylaxis with Lovenox Obstructive sleep apnea CPAP HS Mood disorder Hypothyroidism Continue Synthroid Constipation Had bowel movement 11/05, continue Colace BID Discharge Exam Gen: WD/WN, NAD, sitting in bedside chair, A&Ox3 HEENT: Normocephalic, atraumatic, conjunctivae moist, sclerae anicteric, mucous membranes moist Lung: Clear to Auscultation bilaterally Heart: Regular rate, regular rhythm Abdomen: Soft, NT, ND +BS x 4 Extremities: no edema Skin: Warm, no rash Updated Medication List Medication Instructions Recorded Confirmed Type acetaminophen 500 mg tablet 500 mg PO Q6H PRN Pain 10/31/21 11/04/23 History (Tylenol Extra Strength) divalproex 500 mg tablet,extended 1,000 mg PO HS 10/31/21 11/04/23 History release 24 hr levothyroxine 75 mcg tablet 75 mcg PO DAILYBB 10/31/21 11/04/23 History (Euthyrox) oxcarbazepine 150 mg tablet 450 mg PO BID 10/31/21 11/04/23 History gabapentin 300 mg capsule 300 mg PO AMPM 09/28/22 11/04/23 History cyanocobalamin (vitamin B-12) 1,000 mcg PO QAM 01/26/23 11/04/23 History 1,000 mcg tablet (Vitamin B-12) glucosamine sulfate 750 mg tablet 750 mg PO DAILY 01/26/23 11/04/23 History levetiracetam 750 mg tablet 750 mg PO BID #60 tabs 04/20/23 11/04/23 Rx calcium citrate 315 mg-vitamin D3 1 tab PO QAM 10/07/23 11/04/23 History 5 mcg (200 unit) tablet cranberry 500 mg capsule 500 mg PO BID 10/07/23 11/04/23 History docusate sodium 100 mg tablet 100 mg PO BID 10/07/23 11/04/23 History fluticasone propionate 50 2 spray NA DAILY #16 grams 10/13/23 11/04/23 Rx mcg/actuation nasal spray,suspension cefdinir 300 mg capsule 300 mg PO BID 5 days #10 caps 11/06/23 Rx diclofenac sodium 1 % topical gel 4 g topical QID #100 grams 03/28/24 Rx (Voltaren Arthritis Pain) Hospital Stay Data Consultations 11/04/23 18:29 ED Decision to Admit Stat Diagnostic Imagining Performed 11/04/23 19:13 CT hip LT wo con Routine CT knee LT wo con Routine CT knee RT wo con Routine CT pelvis wo con Routine MRI Brain [MR brain wo con] Urgent 11/04/23 22:15 CT hip RT wo con Routine Pending Results Patient Have Any Pending Studies at Discharge: No Discharge Instructions Given to Patient (Per Discharging Provider) You were admitted for fall. Your work up is concerning for urinary tract infection. You will complete a course of antibiotics -Cefdinir 300mg two times a day for 5 days You were started on topical dicolfenac gel fours times daily for knee pain. You didn't have any fractures on imaging, but you have imaging concern suspicious for severe osteoarthritis. You should follow up with your Primary Care Provider for orthopedic consult to discuss options for management. Total Time Total Time Spent Total Time Spent (In Minutes): 45 Supervising Physician Co-Signing Physician Notes I have seen and discussed the case with the collaborating advanced practitioner. I agree with the above H&P. I have reviewed and confirmed the patients medical history, the findings on physical examination, and the patients diagnosis and treatment plan with Henok DANIELS and agree with the information documented. Patient evaluated in bedside chair. No acute events overnight. Denies any new concerns. Eating well and ambulating cautiously with walker GENERAL APPEARANCE: AxOx4, generally well-appearing female, no acute distress. HEENT: NC, AT. MMM. EOMI, clear conjunctiva, oropharynx clear. NECK: Supple without lymphadenopathy. No stiffness or restricted ROM. HEART: Normal rate and regular rhythm, normal S1/S1, no m/r/g LUNGS: CTAB, moving air well. No crackles or wheezes are heard. ABDOMEN: Soft, nontender, nondistended with good bowel sounds heard. EXTREMITIES: Without cyanosis, clubbing or edema. NEUROLOGICAL: Grossly nonfocal. Alert and oriented, moving all 4 extremities. CN not formally tested but appear grossly intact Skin: Warm and dry without any rash. Ms. Loza is a 74-year-old female with history of epilepsy, heart failure with reduced ejection fraction EF 25 to 30%, nonobstructive CAD, mild aortic stenosis, Pulmonary hypertension, PE and DVT, obstructive sleep apnea, mood disorder, hypothyroidism etc. presenting with an episode of loss of coordination, fall on 11/03. #Mechanical fall #ambulatory dysfunction Rehab #Chronic knee pain, acute pain resolved Status post fall Likely secondary to osteoarthritis, severe tricomparmental osteoarthritis in right knee/ left moderate Tylenol prn Voltaren q8h bilateral knees #Possible UTI abx administered prior to UA culture -Continue course of cefdinir #epilepsy, stable on regimen Continue Keppra 750mg BID, Depakote 1000mg qhs, gabapentin 300mg BID #Heart failure with reduced ejection fraction Euvolemic #Nonobstructive CAD No cardiac symptoms #History syncope 2020, s/p loop recorder 2021 Falls previously thought secondary to absence seizure activity in the setting of noncompliance with anti epileptic medication. #Mild aortic stenosis #Pulmonary hypertension -Not on active treatment at this time #PE/DVT no longer on eliquis 09/12 falls DVT prophylaxis with Lovenox #Obstructive sleep apnea On CPAP #Mood disorder continue home regimen Hypothyroidism Continue Synthroid Full code as per patient Discharged today I spent a total of 25 minutes coordinating, documenting, and providing care for this patient excluding time spent in the performance of separately billed services. All of the aforementioned completed outside of collaborating with the assigned advanced practitioner for a full treatment plan. I have reviewed the advanced practitioner's documentation, and I agree with, and take responsibility for the plan of care
== END 2023-11-07 12:21 | DRG 554 ==
LOC: 2N 15:20 → ED 15:20 → OBSVTOIN 19:13 → SUATTDRO 19:13 → 2N 20:57
DX: R29.6 Repeated falls; G40.909 Epilepsy, unspecified, not intractable, without status epilepticus; N39.0 Urinary tract infection, site not specified; M25.562 Pain in left knee; F39 Unspecified mood [affective] disorder; E03.9 Hypothyroidism, unspecified; M25.561 Pain in right knee; I50.22 Chronic systolic (congestive) heart failure; Z88.1 Allergy status to other antibiotic agents; Z79.899 Other long term (current) drug therapy; G47.33 Obstructive sleep apnea (adult) (pediatric); Z88.5 Allergy status to narcotic agent; M17.0 Bilateral primary osteoarthritis of knee; I27.20 Pulmonary hypertension, unspecified; Z79.890 Hormone replacement therapy; K59.00 Constipation, unspecified

== ENCOUNTER 2024-07-16 16:20 | Inpatient (IN) ==
[2024-07-16 17:18] LABS: Basophils # (auto) 0.04 K/uL (0.00-0.20); Basophils % (auto) 0.8 %; Eosinophils # (auto) 0.13 K/uL (0.00-0.50); Eosinophils % (auto) 2.7 %; Hematocrit (blood only) 45.3 % (37.0-47.0); Hemoglobin 15.5 g/dl (12.0-16.0); Immature Granulocytes # (auto) 0.03 K/uL (0.01-0.20); Immature Granulocytes % (auto) 0.6 %; Lymphocytes # (auto) 1.18 K/uL (1.20-3.40); Lymphocytes % (auto) 24.5 %; Mean Corpuscular Hgb Conc 34.2 g/dL (32.0-36.0); Mean Corpuscular Volume 93.6 fL (80.0-100.0); Mean Platelet Volume 9.7 fL (9.4-12.4); Monocytes # (auto) 0.45 K/uL (0.11-0.59); Monocytes % (auto) 9.3 %; Neutrophils # (auto) 2.99 K/uL (1.40-6.50); Neutrophils % (auto) 62.1 %; Platelet Count 232 K/uL (130-400); RDW Coefficient of Variation 12.5 % (11.5-14.5); RDW Standard Deviation 43.3 fL (36.4-46.3); Red Blood Count 4.84 M/uL (4.20-5.40); White Blood Count 4.82 K/ul (4.8-10.8)
--- NOTE | 2024-07-16 17:25 | XRay Report ---
EXAM: Radiographs of the Left Elbow Complete 3 or More Views INDICATION: Trauma. TECHNIQUE: Frontal, lateral and oblique views of the left elbow. COMPARISON: No relevant prior studies available. FINDINGS: Bones/joints: No fracture, erosion or dislocation. Soft tissues: No abnormality noted. No radiopaque foreign body noted. IMPRESSION: No abnormality noted. ACT 112: Negative or not required by law. Electronically signed by Autumn Lacy 07-16-2024 5:25 PM
--- NOTE | 2024-07-16 17:26 | XRay Report ---
EXAM: Radiographs of the Left Hand Complete 3 Views INDICATION: Trauma. TECHNIQUE: Frontal, lateral and oblique views of the left hand. COMPARISON: No relevant prior studies available. FINDINGS: Bones/joints: The bones are demineralized. There is diffuse mild joint space narrowing. There is moderate narrowing of the STT joint of the medial wrist. No fracture or osseous destruction noted. No dislocation. Soft tissues: No abnormality noted. No radiopaque foreign body noted. IMPRESSION: Degenerative changes. No acute abnormality. ACT 112: Negative or not required by law. Electronically signed by Autumn Lacy 07-16-2024 5:26 PM
--- NOTE | 2024-07-16 17:27 | XRay Report ---
EXAM: Radiograph of the Chest 1 View INDICATION: Trauma. TECHNIQUE: Frontal view of the chest. COMPARISON: 01/10/2024 FINDINGS: Lungs and pleural spaces: Mild linear atelectasis or scarring right lung base. No consolidation or pulmonary edema. No pleural effusion or pneumothorax. Heart: Shape and configuration within normal limits allowing for technique. Mediastinum: Normal contour. Bones/joints: Proximal lumbar 2 level kyphoplasty changes noted. No acute fracture noted. Soft tissues: No abnormality noted. No radiopaque foreign body noted. Tubes, lines and devices: Stable shape and configuration of the prominent heart accentuated by technique. Loop recorder present. Upper abdomen: No abnormality noted. IMPRESSION: No acute change noted. ACT 112: Negative or not required by law. Electronically signed by Autumn Lacy 07-16-2024 5:27 PM
--- NOTE | 2024-07-16 17:29 | CT Scan Report ---
EXAM: CT Head Without Intravenous Contrast INDICATION: Witnessed ground-level fall. Confusion. TECHNIQUE: Axial computed tomography images of the head/brain without intravenous contrast. Sagittal and/or coronal reformats are provided. Sagittal and coronal reformatted images were created and reviewed. This CT exam was performed using one or more of the following dose reduction techniques: automated exposure control, adjustment of the mA and/or kV according to patient size, and/or use of iterative reconstruction technique. COMPARISON: 10/07/2023 FINDINGS: Limitations: None. Brain and extra-axial spaces: There is age appropriate cortical atrophy and chronic ischemic periventricular white matter hypodensity. No acute infarct, hemorrhage or mass noted. Bones/joints: No acute changes. Soft tissues: No significant abnormality noted. Vasculature: No acute abnormality noted. Sinuses: No layering fluid in the visualized portions of the paranasal sinuses. Mastoid air cells: No mastoid effusion. Orbits: No significant abnormality noted. IMPRESSION: Cerebral atrophy. No acute changes. ACT 112: Negative or not required by law. Electronically signed by Autumn Lacy 07-16-2024 5:29 PM
[2024-07-16] MEDS: ONDANSETRON INJ 2 MG/ML 2 ML VIAL IV STA (17:33)
[2024-07-16 17:49] LABS: Albumin Level 4.1 gm/dl (3.4-5.0); Bilirubin,Total 0.4 mg/dl (0.2-1.0); Calcium 9.3 mg/dl (8.6-10.3); Magnesium 1.7 mg/dl (1.7-2.4); Potassium 3.9 mmol/L (3.5-5.1)
[2024-07-16 17:55] LABS: Albumin Globulin Ratio 1.3 (0.9-2); Creatinine Clr Calc Pharmacy 113.6 ml/min; Globulin 3.2 gm/dl (2.5-4.0); Total Protein 7.3 gm/dl (6.0-8.3)
[2024-07-16 18:25] LABS: Thyroid Stimulating Hormone 2.622 uIu/ml (0.300-4.500)
--- NOTE | 2024-07-16 19:37 | XRay Report ---
Exam(s): XR HIP + PELVIS, 1 view EXAM: XR Left Hip With Pelvis When Performed, 2 or 3 Views CLINICAL HISTORY: Reason for exam: fall, L hip pain. TECHNIQUE: Two or three views of the left hip with pelvis when performed. COMPARISON: 03/02/2024 FINDINGS: Bones/joints: Limited study secondary to beam attenuation and body habitus. No grossly evident acute fracture. If there is significant tenderness consider cross-sectional imaging. IMPRESSION: Limited study secondary to beam attenuation and body habitus. No grossly evident acute fracture. If there is significant tenderness consider cross-sectional imaging. Electronically signed by: Finn Murphy MD 07/16/24 19:37 PM
[2024-07-16 20:13] LABS: Appearance Urine Cloudy (Clear); Bacteria Urine Automated 2+ (None Seen); Bilirubin Urine 1+ (Negative); Blood Urine Negative (Negative); Cast Urine Automated 0-2 /lpf (0-2); Color Urine Dark Yellow; Glucose Urine UA Negative (Negative); Ketones Urine 2+ (Negative); Leukocyte Esterase Urine 1+ (Negative); Nitrite Urine Negative (Negative); Protein Urine 1+ (Negative); Specific Gravity Urine 1.035 (1.000-1.030); Urobilinogen Urine Negative (Negative)
--- NOTE | 2024-07-16 20:57 | Emergency Department Note ---
Impression & Plan Acute pain of left lower extremity, Fall, Ambulatory dysfunction ED Provider Note CHIEF COMPLAINT: Fall, left wrist and elbow pain HISTORY OF PRESENT ILLNESS: This 73-year-old female patient with past medical history of obesity, PE, seizure compression fracture of the lumbar spine, burst fracture of the T-spine, SVT, UTI, non-STEMI, hyponatremia presents to the emergency department with complaints of left wrist and elbow pain after a fall today. The patient states she has fallen in the past and therefore wears a life alert button. She denies hitting her head or having a loss of consciousness. Patient states she was feeling a bit weak and may be confused earlier today, but denied any facial droop, difficulty speaking or unilateral weakness. Today she used the button and EMS arrived. She does live at home with her and son. REVIEW OF SYSTEMS: A review of systems was performed with positives and pertinent negatives listed in the history of present illness. 10 systems were reviewed and are otherwise negative. ALLERGIES: see below MEDICATIONS: see below PMH: see below SOCIAL HISTORY: see below DDx: UTI, viral syndrome, mechanical fall, intracranial hemorrhage, dehydration, cardiac arrhythmia, bony fracture among others. PHYSICAL EXAM: Vital signs reviewed. General: Well-appearing, obese 73-year-old female, in no significant distress. HEENT: No scleral icterus, PERRLA, neck supple. Atraumatic. Cardiovascular: Regular rate and rhythm, no extra sounds. Pulmonary: Clear to auscultation bilaterally, normal work of breathing. Abdomen: Soft, obese,nontender, nondistended, positive bowel sounds. Musculoskeletal: Atraumatic, no peripheral edema. mild discomfort to palpation over the left elbow however patient has full range of motion without discomfort. There is no evidence of swelling or ecchymosis. Left hand x-ray to my interpretation reveals bruising along the distal fourth metacarpal, no evidence of acute fracture or significant swelling. Mild discomfort to palpation over the left pelvis/hip however patient has range of motion without significant difficulty. Neurologic: Patient awake alert and oriented x 3, speech is clear Skin: Warm, dry, no rash EMERGENCY DEPARTMENT COURSE/MDM: This patient was evaluated and appeared to be in no significant distress. Physical examination reveals no significant trauma with exception of some mild ecchymosis to the left hand. Patient does have some discomfort to the left pelvis and hip but there is no difficulty with movement. Multiple x-rays were performed and show no acute fracture of the hand, elbow and knee on the left. Head CT is negative, chest x-ray reveals some atelectasis. Laboratory work and UA are reassuring. Nursing staff was asked to take the patient for an ambulatory trial which she failed, even with assist and a walker. Patient will require further evaluation and likely PT consultation. The hospitalist service was contacted for further management. The patient is aware of the plan and agrees. MONITORING: An order for cardiac monitoring was placed and the patient is noted to be in a normal sinus rhythm at 74 beats per minute. RADIOLOGY: chest x-ray to my interpretation reveals linear atelectasis at the right base without evidence of focal lung consolidation otherwise or failure. Left Elbow x-ray to my interpretation reveals no evidence of acute fracture or dislocation. Otherwise see radiology's over read below. Left hand x-ray per my interpretation radiology is over read is negative for acute fracture or dislocation. Head CT per radiology reveals generalized atrophy without evidence of acute intracranial hemorrhage. X-ray of the pelvis/left hip reveals no evidence of acute fracture although limited study due to body habitus. Left knee x-ray to my interpretation reveals arthritic changes and no evidence of acute fx. Otherwise, refer to rads overread. EKG: to my interpretation reveals normal sinus rhythm at 60 bpm. Overall low voltage. QTc is 425. DISPOSITION: Admission Past Med/Surg History Problem List (Updated 07/20/24 @ 20:02 by Fay Capellan MD) Ambulatory dysfunction (Acute) Acute pain of left lower extremity (Acute) Acute bilateral knee pain (Acute) Contusion of rib on left side (Acute) Fall (Acute) Weakness (Acute) COVID-19 (Acute) Fall (Acute) Syncope (Acute) Fall (Acute) Acute UTI (Acute) Back pain (Acute) Hyponatremia (Acute) Hyponatremia Fracture, fibula closed, shaft Fall (Acute) Ankle sprain (Acute) Acute hip pain (Acute) Apical ballooning syndrome Toe fracture, right Falls frequently (Acute) Acute non-ST elevation myocardial infarction (NSTEMI) (Acute) Hypomagnesemia (Acute) Elevated troponin I level (Acute) Contusion of multiple sites (Acute) Acute hyponatremia (Acute) Acute UTI (urinary tract infection) (Acute) Compression fracture Fall (Acute) Closed compression fracture of L3 vertebra (Acute) Ambulatory dysfunction (Acute) Increased urinary frequency (Acute) Encounter for pre-operative examination SVT (supraventricular tachycardia) Syncope Burst fracture of T12 vertebra (Acute) Closed sacral fracture (Acute) Witnessed seizure-like activity Seizure disorder (Acute) Hypothyroidism Peripheral neuropathy FORREST (obstructive sleep apnea) History of pulmonary embolism Elevated INR Medical History Constipation Acute knee pain Closed fibular fracture Psychosis Hallucination Hypothyroidism Cancer SKIN CANCER Hearing deficit Peripheral neuropathy Seizure LAST EPISODE (THIS YEAR/UNSURE OF DATE) ? SEIZURE TYPE>FOLLOWS WITH DR. PHOENIX. OLD RECORDS NOTE EPILEPSY Deep vein thrombosis Pulmonary embolism On home oxygen therapy [place] OXYGEN AT NIGHT (UNSURE OF LITER) Sleep apnea NO DEVICE USED NOW (CPAP USED IN PAST) Hallucinations (05/29/11) Surgical History History of kyphoplasty History of bilateral tubal ligation History of colonoscopy History of tooth extraction History of tonsillectomy History of adenoidectomy Family History Mother Family hx of colon cancer Social History Smoking Status: Never smoker Second Hand Exposure: No; Do You Dip or Chew Tobacco: No; Tobacco Cessation Education Requested by Patient: No Hx Alcohol Use: No Hx Substance Use: No Preferred Language: Slovenian Communication Ability: Effective 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 Beliefs That Will Affect Care: None marital status: Current Living Situation: Spouse Current Living Situation Comment: Lives in independent living with How many Children do You have: 5 Other Information That Helps Us Care for You: No Feels Safe at Home: Yes Safety Concerns: Feels Safe At This Time Assistive Devices: Lift Chair and Walker Allergies Allergies Allergy/AdvReac Type Severity Reaction Status Date / Time amoxicillin Allergy Intermediate Rash Verified 01/10/24 09:48 codeine Allergy Intermediate Rash Verified 01/10/24 09:48 Home Meds Home Medications Medication Instructions Recorded Confirmed acetaminophen 500 mg tablet 500 mg PO Q6H PRN Pain 10/31/21 07/16/24 (Tylenol Extra Strength) divalproex 500 mg tablet,extended 1,000 mg PO HS 03/23/22 12/06/24 release 24 hr levothyroxine 75 mcg tablet 75 mcg PO DAILYBB 10/31/21 07/16/24 (Euthyrox) oxcarbazepine 150 mg tablet 450 mg PO BID 10/31/21 07/16/24 gabapentin 300 mg capsule 300 mg PO AMPM 09/28/22 07/16/24 cyanocobalamin (vitamin B-12) 1,000 mcg PO QAM 01/26/23 07/16/24 1,000 mcg tablet (Vitamin B-12) calcium 315 mg (as 1 tab PO QAM 10/07/23 07/16/24 citrate)-vitamin D3 5 mcg (200 unit) tablet cranberry 500 mg capsule 1,000 mg PO BID 10/07/23 07/16/24 levetiracetam 750 mg tablet 750 mg PO AMHS 07/16/24 07/16/24 Previous Rx's Medication Instructions Recorded cefuroxime axetil 250 mg tablet 250 mg PO BID 5 days #10 tabs 07/19/24 magnesium oxide 400 mg (241.3 mg 400 mg PO BID 5 days #10 tabs 07/19/24 magnesium) tablet Results & Data (ED) Vital Signs Vital Signs - 24 hr 07/16/24 16:30 07/16/24 16:34 07/16/24 16:57 Temperature 36.5 C Temperature Source Oral Pulse Rate 69 71 64 Pulse Rate [Apical] Pulse Rate from SpO2 Sensor 64 Pulse Rhythm [Apical] Pulse Strength [Apical] Respiratory Rate 18 35 H Respiratory Effort / Characteristics Respiratory Depth Respiratory Pattern Blood Pressure 107/77 Blood Pressure [Right Arm] Blood Pressure Mean 87 Blood Pressure Mean [Right Arm] Blood Pressure Position [Right Arm] Pulse Oximetry 93 97 Oxygen Delivery Method Room Air Sepsis New/Unexplained Change in Mental Status No Sepsis Action Taken by Nursing No Action Required 07/16/24 17:01 07/16/24 17:03 07/16/24 17:12 Temperature Temperature Source Pulse Rate 64 Pulse Rate [Apical] Pulse Rate from SpO2 Sensor Pulse Rhythm [Apical] Pulse Strength [Apical] Respiratory Rate 18 Respiratory Effort / Characteristics Respiratory Depth Respiratory Pattern Blood Pressure 128/79 Blood Pressure [Right Arm] Blood Pressure Mean 89 Blood Pressure Mean [Right Arm] Blood Pressure Position [Right Arm] Pulse Oximetry Oxygen Delivery Method Room Air Sepsis New/Unexplained Change in Mental Status Sepsis Action Taken by Nursing 07/16/24 18:00 07/16/24 18:09 07/16/24 18:36 Temperature Temperature Source Pulse Rate 68 66 Pulse Rate [Apical] Pulse Rate from SpO2 Sensor 68 67 Pulse Rhythm [Apical] Pulse Strength [Apical] Respiratory Rate 21 19 Respiratory Effort / Characteristics Respiratory Depth Respiratory Pattern Blood Pressure 127/80 Blood Pressure [Right Arm] Blood Pressure Mean 101 Blood Pressure Mean [Right Arm] Blood Pressure Position [Right Arm] Pulse Oximetry 95 95 Oxygen Delivery Method Room Air Room Air Sepsis New/Unexplained Change in Mental Status Sepsis Action Taken by Nursing 07/16/24 20:00 07/16/24 20:31 Temperature Temperature Source Pulse Rate 74 Pulse Rate [Apical] 80 Pulse Rate from SpO2 Sensor Pulse Rhythm [Apical] Regular Pulse Strength [Apical] Normal Respiratory Rate 18 Respiratory Effort / Characteristics Non-Labored Spontaneous Respiratory Depth Normal Respiratory Pattern Regular Blood Pressure Blood Pressure [Right Arm] 112/88 Blood Pressure Mean Blood Pressure Mean [Right Arm] 96 Blood Pressure Position [Right Arm] Semi-fowlers Pulse Oximetry 97 Oxygen Delivery Method Room Air Sepsis New/Unexplained Change in Mental Status Sepsis Action Taken by Detention Medications Current Medication List: was personally reviewed by me Laboratory Data Attestation: I reviewed the patient's lab results. 07/19/24 07:44 07/19/24 07:44 Lab Results 07/16/24 07/16/24 Range/Units 16:48 19:47 WBC 4.82 (4.8-10.8) K/ul RBC 4.84 (4.20-5.40) M/uL Hgb 15.5 (12.0-16.0) g/dl Hct 45.3 (37.0-47.0) % MCV 93.6 (80.0-100.0) fL MCH 32.0 (25.0-34.0) pg MCHC 34.2 (32.0-36.0) g/dL RDW Std Deviation 43.3 (36.4-46.3) fL RDW Coeff of Benigno 12.5 (11.5-14.5) % Plt Count 232 (130-400) K/uL MPV 9.7 (9.4-12.4) fL Immature Gran % (Auto) 0.6 % Neut % (Auto) 62.1 % Lymph % (Auto) 24.5 % [place] % (Auto) 9.3 % Eos % (Auto) 2.7 % Baso % (Auto) 0.8 % Neut # (Auto) 2.99 (1.40-6.50) K/uL Lymph # (Auto) 1.18 L (1.20-3.40) K/uL Preston # (Auto) 0.45 (0.11-0.59) K/uL Eos # (Auto) 0.13 (0.00-0.50) K/uL Baso # (Auto) 0.04 (0.00-0.20) K/uL Immature Gran # (Auto) 0.03 (0.01-0.20) K/uL Sodium 133 L (136-145) mmol/L Potassium 3.9 (3.5-5.1) mmol/L Chloride 98 (98-107) mmol/L Carbon Dioxide 28 (21-32) mmol/L Anion Gap 7 (3-11) BUN 8 (6-23) mg/dl Creatinine 0.50 L (0.6-1.2) mg/dl Est Cr Clr Drug Dosing 113.6 ml/min eGFR 99.59 BUN/Creatinine Ratio 16.0 (10-20) Glucose 89 (70-99(Fasting)) mg/dl Calcium 9.3 (8.6-10.3) mg/dl Magnesium 1.7 (1.7-2.4) mg/dl Total Bilirubin 0.4 (0.2-1.0) mg/dl AST 11 L (13-39) U/L ALT 8 (7-52) U/L Alkaline Phosphatase 62 (34-104) U/L Total Protein 7.3 (6.0-8.3) gm/dl Albumin 4.1 (3.4-5.0) gm/dl Globulin 3.2 (2.5-4.0) gm/dl Albumin/Globulin Ratio 1.3 (0.9-2) TSH 2.622 (0.300-4.500) uIu/ml Urine Color Dark Yellow Urine Appearance Cloudy A (Clear) Urine pH 6.0 (4.5-7.5) Ur Specific [place] 1.035 H (1.000-1.030) Urine Protein 1+ H (Negative) Urine Glucose (UA) Negative (Negative) Urine Ketones 2+ H (Negative) Urine Blood Negative (Negative) Urine Nitrite Negative (Negative) Urine Bilirubin 1+ H (Negative) Urine Urobilinogen Negative (Negative) Ur Leukocyte Esterase 1+ H (Negative) Urine WBC (Auto) 11-20 H (0-5) /hpf Urine RBC (Auto) 3-5 H (0-2) /hpf U Hyaline Cast (Auto) 0-2 (0-2) /lpf U Epithel Cells (Auto) 11-20 H (0-2) /hpf Urine Bacteria (Auto) 2+ H (None Seen) Administered Medications Discontinued Medications Acetaminophen (Acetaminophen 325 Mg Tab) 650 mg PO NOW STA Stop: 07/17/24 00:04 Last Admin: 07/17/24 00:38 Dose: 650 mg Documented By: SOBEIDA Acetaminophen (Acetaminophen 325 Mg Tab) 650 mg PO Q4H PRN PRN Reason: pain/fever Stop: 08/16/24 01:38 Last Admin: 07/19/24 15:05 Dose: 650 mg Documented By: JUAN J Admin: 07/18/24 22:09 Dose: 650 mg Documented By: Admin: 07/17/24 14:03 Dose: 650 mg Documented By: RT Calcium Citrate (Calcium Citrate 950 Mg Tab) 950 mg PO [facility] Stop: 08/16/24 08:59 Last Admin: 07/19/24 10:41 Dose: 950 mg Documented By: JUAN J Admin: 07/18/24 09:20 Dose: 950 mg Documented By: Admin: 07/17/24 07:54 Dose: 950 mg Documented By: RT Cyanocobalamin (Cyanocobalamin (B-12) 500 Mcg Tablet) 1,000 mcg PO [facility] Stop: 08/16/24 08:59 Last Admin: 07/19/24 08:13 Dose: 1,000 mcg Documented By: Admin: 07/18/24 09:21 Dose: 1,000 mcg Documented By: Admin: 07/17/24 07:55 Dose: 1,000 mcg Documented By: RT Divalproex Sodium (Divalproex Extended Release 500 Mg Tab) 1,000 mg PO [facility] Stop: 08/16/24 20:59 Last Admin: 07/18/24 21:36 Dose: 1,000 mg Documented By: Admin: 07/17/24 20:59 Dose: 1,000 mg Documented By: CHARLES Enoxaparin Sodium (Enoxaparin Inj 40 Mg/0.4 Ml Syr) 40 mg SQ Q24H SACHA Stop: 08/16/24 08:59 Last Admin: 07/19/24 08:13 Dose: 40 mg Documented By: JUAN J Admin: 07/18/24 09:21 Dose: 40 mg Documented By: Admin: 07/17/24 07:55 Dose: 40 mg Documented By: RT Gabapentin (Gabapentin 300 Mg Cap) 300 mg PO BID SACHA Stop: 08/16/24 08:59 Last Admin: 07/19/24 08:13 Dose: 300 mg Documented By: JUAN J Admin: 07/18/24 21:35 Dose: 300 mg Documented By: Admin: 07/18/24 09:20 Dose: 300 mg Documented By: Admin: 07/17/24 20:55 Dose: 300 mg Documented By: Admin: 07/17/24 07:55 Dose: 300 mg Documented By: RT Ceftriaxone Sodium (Rocephin) 2,000 mg in 50 mls @ 100 mls/hr IV NOW STA Stop: 07/16/24 21:22 Last Infusion: 07/16/24 22:08 Dose: Infused Documented By: Admin: 07/16/24 21:26 Dose: 100 mls/hr Documented By: SOBEIDA Sodium Chloride (Nss) 1,000 mls @ 80 mls/hr IV .[id number] SACHA Stop: 07/17/24 14:08 Last Infusion: 07/17/24 21:15 Dose: Infused Documented By: Admin: 07/17/24 06:01 Dose: 80 mls/hr Documented By: CHARLES Ceftriaxone Sodium (Rocephin) 2,000 mg in 50 mls @ 100 mls/hr IV Q24H SACHA Stop: 07/22/24 20:59 Last Infusion: 07/18/24 22:13 Dose: Infused Documented By: Admin: 07/18/24 21:31 Dose: 100 mls/hr Documented By: Infusion: 07/17/24 22:07 Dose: Infused Documented By: Admin: 07/17/24 20:51 Dose: 100 mls/hr Documented By: CHARLES Magnesium Sulfate/Dextrose (Magnesium Sulfate / D5w) 1 gm in 100 mls @ 50 mls/hr IV ONE ONE Stop: 07/18/24 18:43 Last Infusion: 07/18/24 19:13 Dose: Infused Documented By: Admin: 07/18/24 17:10 Dose: 50 mls/hr Documented By: SWAPNA Lactobacillus Acidophilus (Advanced Probiotic 625 Mg Capsule) 1,250 mg PO DAILY SACHA Stop: 08/18/24 13:14 Last Admin: 07/19/24 15:05 Dose: 1,250 mg Documented By: JUAN J Levetiracetam (Levetiracetam 250 Mg Tab) 750 mg PO BID SACHA Stop: 08/16/24 08:59 Last Admin: 07/19/24 10:42 Dose: 750 mg Documented By: JUAN J Admin: 07/18/24 21:36 Dose: 750 mg Documented By: Admin: 07/18/24 09:20 Dose: 750 mg Documented By: Admin: 07/17/24 20:54 Dose: 750 mg Documented By: Admin: 07/17/24 07:55 Dose: 750 mg Documented By: Levothyroxine Sodium (Levothyroxine Sodium 75 Mcg Tablet) 75 mcg PO DAILYBB [facility] Stop: 08/16/24 06:29 Last Admin: 07/19/24 05:41 Dose: 75 mcg Documented By: Admin: 07/18/24 06:08 Dose: 75 mcg Documented By: Admin: 07/17/24 06:05 Dose: 75 mcg Documented By: CHARLES Magnesium Oxide (Magnesium Oxide 400 Mg Tab) 400 mg PO BID [facility] Stop: 08/16/24 09:14 Last Admin: 07/19/24 08:13 Dose: 400 mg Documented By: JUAN J Admin: 07/18/24 21:36 Dose: 400 mg Documented By: Admin: 07/18/24 09:21 Dose: 400 mg Documented By: Admin: 07/17/24 20:54 Dose: 400 mg Documented By: Admin: 07/17/24 11:16 Dose: 400 mg Documented By: Ondansetron HCl (Ondansetron Inj 2 Mg/Ml 2 Ml Vial) 4 mg IV NOW STA Stop: 07/16/24 17:26 Last Admin: 07/16/24 17:33 Dose: 4 mg Documented By: MARISSA Oxcarbazepine (Oxcarbazepine 150 Mg Tablet) 450 mg PO BID SACHA Stop: 08/16/24 08:59 Last Admin: 07/19/24 08:13 Dose: 450 mg Documented By: Admin: 07/18/24 21:37 Dose: 450 mg Documented By: Admin: 07/18/24 09:21 Dose: 450 mg Documented By: Admin: 07/17/24 20:54 Dose: 450 mg Documented By: Admin: 07/17/24 07:54 Dose: 450 mg Documented By: RT Pneumococcal 20-Valent Conj Vacc (Pneumococcal Vaccine (Pcv20) 20-Lexis Conj-Dip Crm/Pf 0.5 Ml Syr) 0.5 ml IM .ONCE ONE Stop: 07/17/24 09:20 Last Admin: 07/18/24 09:22 Dose: 0.5 ml Documented By: SWAPNA Imaging Data Radiologist's Impression: Chest X-Ray 07/16/24 16:56 EXAM: Radiograph of the Chest 1 View INDICATION: Trauma. TECHNIQUE: Frontal view of the chest. COMPARISON: 01/10/2024 FINDINGS: Lungs and pleural spaces: Mild linear atelectasis or scarring right lung base. No consolidation or pulmonary edema. No pleural effusion or pneumothorax. Heart: Shape and configuration within normal limits allowing for technique. Mediastinum: Normal contour. Bones/joints: Proximal lumbar 2 level kyphoplasty changes noted. No acute fracture noted. Soft tissues: No abnormality noted. No radiopaque foreign body noted. Tubes, lines and devices: Stable shape and configuration of the prominent heart accentuated by technique. Loop recorder present. Upper abdomen: No abnormality noted. IMPRESSION: No acute change noted. ACT 112: Negative or not required by law. Electronically signed by Autumn Lacy 07-16-2024 5:27 PM Elbow X-Ray 07/16/24 16:56 EXAM: Radiographs of the Left Elbow Complete 3 or More Views INDICATION: Trauma. TECHNIQUE: Frontal, lateral and oblique views of the left elbow. COMPARISON: No relevant prior studies available. FINDINGS: Bones/joints: No fracture, erosion or dislocation. Soft tissues: No abnormality noted. No radiopaque foreign body noted. IMPRESSION: No abnormality noted. ACT 112: Negative or not required by law. Electronically signed by Autumn Lacy 07-16-2024 5:25 PM Hand X-Ray 07/16/24 16:56 EXAM: Radiographs of the Left Hand Complete 3 Views INDICATION: Trauma. TECHNIQUE: Frontal, lateral and oblique views of the left hand. COMPARISON: No relevant prior studies available. FINDINGS: Bones/joints: The bones are demineralized. There is diffuse mild joint space narrowing. There is moderate narrowing of the STT joint of the medial wrist. No fracture or osseous destruction noted. No dislocation. Soft tissues: No abnormality noted. No radiopaque foreign body noted. IMPRESSION: Degenerative changes. No acute abnormality. ACT 112: Negative or not required by law. Electronically signed by Autumn Lacy 07-16-2024 5:[address] 07/16/24 16:56 EXAM: CT Head Without Intravenous Contrast INDICATION: Witnessed ground-level fall. Confusion. TECHNIQUE: Axial computed tomography images of the head/brain without intravenous contrast. Sagittal and/or coronal reformats are provided. Sagittal and coronal reformatted images were created and reviewed. This CT exam was performed using one or more of the following dose reduction techniques: automated exposure control, adjustment of the mA and/or kV according to patient size, and/or use of iterative reconstruction technique. COMPARISON: 10/07/2023 FINDINGS: Limitations: None. Brain and extra-axial spaces: There is age appropriate cortical atrophy and chronic ischemic periventricular white matter hypodensity. No acute infarct, hemorrhage or mass noted. Bones/joints: No acute changes. Soft tissues: No significant abnormality noted. Vasculature: No acute abnormality noted. Sinuses: No layering fluid in the visualized portions of the paranasal sinuses. Mastoid air cells: No mastoid effusion. Orbits: No significant abnormality noted. IMPRESSION: Cerebral atrophy. No acute changes. ACT 112: Negative or not required by law. Electronically signed by Autumn Lacy 07-16-2024 5:29 PM Hip/Pelvis X-Ray 07/16/24 18:43 Exam(s): XR HIP + PELVIS, 1 view EXAM: XR Left Hip With Pelvis When Performed, 2 or 3 Views CLINICAL HISTORY: Reason for exam: fall, L hip pain. TECHNIQUE: Two or three views of the left hip with pelvis when performed. COMPARISON: 03/02/2024 FINDINGS: Bones/joints: Limited study secondary to beam attenuation and body habitus. No grossly evident acute fracture. If there is significant tenderness consider cross-sectional imaging. IMPRESSION: Limited study secondary to beam attenuation and body habitus. No grossly evident acute fracture. If there is significant tenderness consider cross-sectional imaging. Electronically signed by: Finn Murphy MD 07/16/24 19:37 PM Discharge Plan Visit Data Chief Complaint: Fall Stated Complaint: FALL ED Provider: Fay Capellan Discharge Problem: Acute pain of left lower extremity, Fall, Ambulatory dysfunction Patient Disposition: Admitted As Inpatient Discharge Instructions Interventions: ED Discharge Assessment Last Done: 07/17/24 01:09 Discharge Problem: Fall Qualifiers: Encounter type: initial encounter Qualified Code(s): W19.XXXA - Unspecified fall, initial encounter
[2024-07-16] MEDS: cefTRIAXone SODIUM 2,000 MG/50 ML BAG IV STA (21:26)
--- NOTE | 2024-07-16 22:33 | History & Physical Report ---
Date of Service July 16, 2024 Assessment & Plan (1) Fall: Plan: 73-year-old female with past medical history significant for nontoxic multinodular goiter, hypothyroidism, nocturnal hypoxemia, obstructive sleep apnea, venous insufficiency, diastolic dysfunction, history of CAD, B12 deficiency, lumbar disc disease, epilepsy, syncope, history of PE and DVT, cognitive change, high risk of falls, general anxiety disorder who lives at home with her comes because of fall and also found to have UTI. Patient states she ambulates with a walker. She has a lift chair which patient states that it elevates her so she can stand up. When she was walking with her walker to her lift chair she got somewhat confused and fell on her left side and hit her head. No loss of consciousness. She says when she falls she cannot get up. She was brought in here and imaging studies were okay. But in the ER when she was trying to ambulate her legs were very weak and she could not ambulate. Currently resting comfortably. Hemodynamics are okay. Somewhat hard of hearing. She said she had a headache earlier but resolved now. She had nausea earlier but that improved. Denies any runny nose or sore throat. No fevers. No cough. No chest pain or shortness of. No abdominal pain. States somewhat constipated. Denies blood in stool or black stools. Denies any hematuria. Denies any burning micturition. Appetite is okay. Fall Weakness Ambulatory dysfunction Imaging studies okay We will follow knee x-ray PT OT UTI Possibly contributing Empiric Rocephin Will follow cultures Hypothyroidism On Synthyroid TSH is okay Epilepsy On Keppra and divalproex and oxcarbazepine and gabapentin DVT prophylaxis Lovenox Disposition Medical floor Full code. History of Present Illness Chief Complaint: Status post fall and UTI Primary Care Provider: Kiki Hay MD 73-year-old female with past medical history significant for nontoxic multinodular goiter, hypothyroidism, nocturnal hypoxemia, obstructive sleep apnea, venous insufficiency, diastolic dysfunction, history of CAD, B12 deficie ncy, lumbar disc disease, epilepsy, syncope, history of PE and DVT, cognitive change, high risk of falls, general anxiety disorder who lives at home with her comes because of fall and also found to have UTI. Patient states she ambulates with a walker. She has a lift chair which patient states that it elevates her so she can stand up. When she was walking with her walker to her lift chair she got somewhat confused and fell on her left side and hit her head. No loss of consciousness. She says when she falls she cannot get up. She was brought in here and imaging studies were okay. But in the ER when she was trying to ambulate her legs were very weak and she could not ambulate. Currently resting comfortably. Hemodynamics are okay. Somewhat hard of hearing. She said she had a headache earlier but resolved now. She had nausea earlier but that improved. Denies any runny nose or sore throat. No fevers. No cough. No chest pain or shortness of. No abdominal pain. States somewhat constipated. Denies blood in stool or black stools. Denies any hematuria. Denies any burning micturition. Appetite is okay. Past medical history. As mentioned above Past surgical history. Subcutaneous tumor removed from the back. Colonoscopy. Tubal ligation. Lumbar kyphoplasty. Tonsillectomy. Bilateral cataracts. Social history. . No smoking. No alcohol use. No drug use. Family history. Mother had colon cancer. Dementia. Father had emphysema. Daughter had cervical cancer. Daughter had thyroid cancer. Allergies Allergy/AdvReac Type Severity Reaction Status Date / Time amoxicillin Allergy Intermediate Rash Verified 01/10/24 09:48 codeine Allergy Intermediate Rash Verified 01/10/24 09:48 Home Medications Medication Instructions Recorded Confirmed Type acetaminophen 500 mg tablet 500 mg PO Q6H PRN Pain 10/31/21 07/16/24 History (Tylenol Extra Strength) divalproex 500 mg tablet,extended 1,000 mg PO HS 10/31/21 07/16/24 History release 24 hr levothyroxine 75 mcg tablet 75 mcg PO DAILYBB 10/31/21 07/16/24 History (Euthyrox) oxcarbazepine 150 mg tablet 450 mg PO BID 10/31/21 07/16/24 History gabapentin 300 mg capsule 300 mg PO AMPM 09/28/22 07/16/24 History cyanocobalamin (vitamin B-12) 1,000 mcg PO QAM 01/26/23 07/16/24 History 1,000 mcg tablet (Vitamin B-12) calcium 315 mg (as 1 tab PO QAM 10/07/23 07/16/24 History citrate)-vitamin D3 5 mcg (200 unit) tablet cranberry 500 mg capsule 1,000 mg PO BID 10/07/23 07/16/24 History levetiracetam 750 mg tablet 750 mg PO AMHS 07/16/24 07/16/24 History Past Med/Surg History Problem List Acute bilateral knee pain (Acute) Contusion of rib on left side (Acute) Fall (Acute) Weakness (Acute) COVID-19 (Acute) Fall (Acute) Syncope (Acute) Fall (Acute) Acute UTI (Acute) Back pain (Acute) Hyponatremia (Acute) Hyponatremia Fracture, fibula closed, shaft Fall (Acute) Ankle sprain (Acute) Acute hip pain (Acute) Apical ballooning syndrome Toe fracture, right Falls frequently (Acute) Acute non-ST elevation myocardial infarction (NSTEMI) (Acute) Hypomagnesemia (Acute) Elevated troponin I level (Acute) Contusion of multiple sites (Acute) Acute hyponatremia (Acute) Acute UTI (urinary tract infection) (Acute) Compression fracture Fall (Acute) Closed compression fracture of L3 vertebra (Acute) Ambulatory dysfunction (Acute) Increased urinary frequency (Acute) Encounter for pre-operative examination SVT (supraventricular tachycardia) Syncope Burst fracture of T12 vertebra (Acute) Closed sacral fracture (Acute) Witnessed seizure-like activity Seizure disorder (Acute) Hypothyroidism Peripheral neuropathy FORREST (obstructive sleep apnea) History of pulmonary embolism Elevated INR Medical History Constipation Acute knee pain Closed fibular fracture Psychosis Hallucination Hypothyroidism Cancer SKIN CANCER Hearing deficit Peripheral neuropathy Seizure LAST EPISODE (THIS YEAR/UNSURE OF DATE) ? SEIZURE TYPE>FOLLOWS WITH DR. PHOENIX. OLD RECORDS NOTE EPILEPSY Deep vein thrombosis Pulmonary embolism On home oxygen therapy [place] OXYGEN AT NIGHT (UNSURE OF LITER) Sleep apnea NO DEVICE USED NOW (CPAP USED IN PAST) Hallucinations (05/29/11) Surgical History History of kyphoplasty History of bilateral tubal ligation History of colonoscopy History of tooth extraction History of tonsillectomy History of adenoidectomy Family History Mother Family hx of colon cancer Social History Smoking Status: Never smoker Second Hand Exposure: No; Do You Dip or Chew Tobacco: No; Tobacco Cessation Education Requested by Patient: No Hx Alcohol Use: No Hx Substance Use: No Preferred Language: Senegalese Communication Ability: Effective Canal Equipment Mechanic Required: No Beliefs That Will Affect Care: None marital status: Current Living Situation: Spouse Current Living Situation Comment: Lives in independent living with How many Children do You have: 5 Other Information That Helps Us Care for You: No Feels Safe at Home: Yes Safety Concerns: Feels Safe At This Time Assistive Devices: Walker and Wheelchair Review of Systems Review of Systems: All systems reviewed & are unremarkable except as noted in HPI & below Physical Exam Physical Exam: General- Not in distress Head- atraumatic Eyes- PERRL. ENT- oropharynx clear Neck- supple, no JVD. Lungs- clear to auscultation no wheezing or crackles Heart- regular rate and rhythm; no murmur, no gallop. Abdomen- normal bowel sounds, soft, nontender, no distension Extremities- pretibial edema seen, no erythema seen Neuro- alert, oriented ; PERRL, no facial palsy; no dysarthria; moves extremities. Results & Data Results & Data Vital Signs (Past 12 Hours) Vital Signs Temp Pulse Pulse Resp BP BP Pulse Ox 07/16/24 22:00 72 18 117/73 98 07/16/24 20:31 74 07/16/24 20:00 80 18 112/88 97 07/16/24 18:36 66 19 95 07/16/24 18:09 68 21 95 07/16/24 18:00 127/80 07/16/24 17:12 64 18 07/16/24 17:03 07/16/24 17:01 128/79 07/16/24 16:57 64 35 H 97 07/16/24 16:34 36.5 C 71 18 107/77 93 07/16/24 16:30 69 O2 Del Method 07/16/24 22:00 Room Air 07/16/24 20:31 07/16/24 20:00 Room Air 07/16/24 18:36 Room Air 07/16/24 18:09 Room Air 07/16/24 18:00 07/16/24 17:12 07/16/24 17:03 Room Air 07/16/24 17:01 07/16/24 16:57 07/16/24 16:34 Room Air 07/16/24 16:30 Diagnostic Findings Laboratory Results WBC 4.82 K/ul (4.8-10.8) 07/16/24 16:48 RBC 4.84 M/uL (4.20-5.40) 07/16/24 16:48 Hgb 15.5 g/dl (12.0-16.0) 07/16/24 16:48 Hct 45.3 % (37.0-47.0) 07/16/24 16:48 MCV 93.6 fL (80.0-100.0) 07/16/24 16:48 MCH 32.0 pg (25.0-34.0) 07/16/24 16:48 MCHC 34.2 g/dL (32.0-36.0) 07/16/24 16:48 RDW Std Deviation 43.3 fL (36.4-46.3) 07/16/24 16:48 RDW Coeff of Benigno 12.5 % (11.5-14.5) 07/16/24 16:48 Plt Count 232 K/uL (130-400) 07/16/24 16:48 MPV 9.7 fL (9.4-12.4) 07/16/24 16:48 Immature Gran % (Auto) 0.6 % 07/16/24 16:48 Neut % (Auto) 62.1 % 07/16/24 16:48 Lymph % (Auto) 24.5 % 07/16/24 16:48 [place] % (Auto) 9.3 % 07/16/24 16:48 Eos % (Auto) 2.7 % 07/16/24 16:48 Baso % (Auto) 0.8 % 07/16/24 16:48 Neut # (Auto) 2.99 K/uL (1.40-6.50) 07/16/24 16:48 Lymph # (Auto) 1.18 K/uL (1.20-3.40) L 07/16/24 16:48 [place] # (Auto) 0.45 K/uL (0.11-0.59) 07/16/24 16:48 Eos # (Auto) 0.13 K/uL (0.00-0.50) 07/16/24 16:48 Baso # (Auto) 0.04 K/uL (0.00-0.20) 07/16/24 16:48 Immature Gran # (Auto) 0.03 K/uL (0.01-0.20) 07/16/24 16:48 Sodium 133 mmol/L (136-145) L 07/16/24 16:48 Potassium 3.9 mmol/L (3.5-5.1) 07/16/24 16:48 Chloride 98 mmol/L (98-107) 07/16/24 16:48 Carbon Dioxide 28 mmol/L (21-32) 07/16/24 16:48 Anion Gap 7 (3-11) 07/16/24 16:48 BUN 8 mg/dl (6-23) 07/16/24 16:48 Creatinine 0.50 mg/dl (0.6-1.2) L 07/16/24 16:48 Est Cr Clr Drug Dosing 113.6 ml/min 07/16/24 16:48 eGFR 99.59 07/16/24 16:48 BUN/Creatinine Ratio 16.0 (10-20) 07/16/24 16:48 Glucose 89 mg/dl (70-99(Fasting)) 07/16/24 16:48 Calcium 9.3 mg/dl (8.6-10.3) 07/16/24 16:48 Magnesium 1.7 mg/dl (1.7-2.4) 07/16/24 16:48 Total Bilirubin 0.4 mg/dl (0.2-1.0) 07/16/24 16:48 AST 11 U/L (13-39) L 07/16/24 16:48 ALT 8 U/L (7-52) 07/16/24 16:48 Alkaline Phosphatase 62 U/L (34-104) 07/16/24 16:48 Total Protein 7.3 gm/dl (6.0-8.3) 07/16/24 16:48 Albumin 4.1 gm/dl (3.4-5.0) 07/16/24 16:48 Globulin 3.2 gm/dl (2.5-4.0) 07/16/24 16:48 Albumin/Globulin Ratio 1.3 (0.9-2) 07/16/24 16:48 TSH 2.622 uIu/ml (0.300-4.500) 07/16/24 16:48 Urine Color Dark Yellow 07/16/24 19:47 Urine Appearance Cloudy (Clear) A 07/16/24 19:47 Urine pH 6.0 (4.5-7.5) 07/16/24 19:47 Ur Specific [place] 1.035 (1.000-1.030) H 07/16/24 19:47 Urine Protein 1+ (Negative) H 07/16/24 19:47 Urine Glucose (UA) Negative (Negative) 07/16/24 19:47 Urine Ketones 2+ (Negative) H 07/16/24 19:47 Urine Blood Negative (Negative) 07/16/24 19:47 Urine Nitrite Negative (Negative) 07/16/24 19:47 Urine Bilirubin 1+ (Negative) H 07/16/24 19:47 Urine Urobilinogen Negative (Negative) 07/16/24 19:47 Ur Leukocyte Esterase 1+ (Negative) H 07/16/24 19:47 Urine WBC (Auto) 11-20 /hpf (0-5) H 07/16/24 19:47 Urine RBC (Auto) 3-5 /hpf (0-2) H 07/16/24 19:47 U Hyaline Cast (Auto) 0-2 /lpf (0-2) 07/16/24 19:47 U Epithel Cells (Auto) 11-20 /hpf (0-2) H 07/16/24 19:47 Urine Bacteria (Auto) 2+ (None Seen) H 07/16/24 19:47 Impressions Chest X-Ray 07/16/24 16:56 EXAM: Radiograph of the Chest 1 View INDICATION: Trauma. TECHNIQUE: Frontal view of the chest. COMPARISON: 01/10/2024 FINDINGS: Lungs and pleural spaces: Mild linear atelectasis or scarring right lung base. No consolidation or pulmonary edema. No pleural effusion or pneumothorax. Heart: Shape and configuration within normal limits allowing for technique. Mediastinum: Normal contour. Bones/joints: Proximal lumbar 2 level kyphoplasty changes noted. No acute fracture noted. Soft tissues: No abnormality noted. No radiopaque foreign body noted. Tubes, lines and devices: Stable shape and configuration of the prominent heart accentuated by technique. Loop recorder present. Upper abdomen: No abnormality noted. IMPRESSION: No acute change noted. ACT 112: Negative or not required by law. Electronically signed by Autumn Lacy 07-16-2024 5:27 PM Elbow X-Ray 07/16/24 16:56 EXAM: Radiographs of the Left Elbow Complete 3 or More Views INDICATION: Trauma. TECHNIQUE: Frontal, lateral and oblique views of the left elbow. COMPARISON: No relevant prior studies available. FINDINGS: Bones/joints: No fracture, erosion or dislocation. Soft tissues: No abnormality noted. No radiopaque foreign body noted. IMPRESSION: No abnormality noted. ACT 112: Negative or not required by law. Electronically signed by Autumn Lacy 07-16-2024 5:25 PM Hand X-Ray 07/16/24 16:56 EXAM: Radiographs of the Left Hand Complete 3 Views INDICATION: Trauma. TECHNIQUE: Frontal, lateral and oblique views of the left hand. COMPARISON: No relevant prior studies available. FINDINGS: Bones/joints: The bones are demineralized. There is diffuse mild joint space narrowing. There is moderate narrowing of the STT joint of the medial wrist. No fracture or osseous destruction noted. No dislocation. Soft tissues: No abnormality noted. No radiopaque foreign body noted. IMPRESSION: Degenerative changes. No acute abnormality. ACT 112: Negative or not required by law. Electronically signed by Autumn Lacy 07-16-2024 5:[address] 07/16/24 16:56 EXAM: CT Head Without Intravenous Contrast INDICATION: Witnessed ground-level fall. Confusion. TECHNIQUE: Axial computed tomography images of the head/brain without intravenous contrast. Sagittal and/or coronal reformats are provided. Sagittal and coronal reformatted images were created and reviewed. This CT exam was performed using one or more of the following dose reduction techniques: automated exposure control, adjustment of the mA and/or kV according to patient size, and/or use of iterative reconstruction technique. COMPARISON: 10/07/2023 FINDINGS: Limitations: None. Brain and extra-axial spaces: There is age appropriate cortical atrophy and chronic ischemic periventricular white matter hypodensity. No acute infarct, hemorrhage or mass noted. Bones/joints: No acute changes. Soft tissues: No significant abnormality noted. Vasculature: No acute abnormality noted. Sinuses: No layering fluid in the visualized portions of the paranasal sinuses. Mastoid air cells: No mastoid effusion. Orbits: No significant abnormality noted. IMPRESSION: Cerebral atrophy. No acute changes. ACT 112: Negative or not required by law. Electronically signed by Autumn Lacy 07-16-2024 5:29 PM Hip/Pelvis X-Ray 07/16/24 18:43 Exam(s): XR HIP + PELVIS, 1 view EXAM: XR Left Hip With Pelvis When Performed, 2 or 3 Views CLINICAL HISTORY: Reason for exam: fall, L hip pain. TECHNIQUE: Two or three views of the left hip with pelvis when performed. COMPARISON: 03/02/2024 FINDINGS: Bones/joints: Limited study secondary to beam attenuation and body habitus. No grossly evident acute fracture. If there is significant tenderness consider cross-sectional imaging. IMPRESSION: Limited study secondary to beam attenuation and body habitus. No grossly evident acute fracture. If there is significant tenderness consider cross-sectional imaging. Electronically signed by: Finn Murphy MD 07/16/24 19:37 PM ECG Additional Comments: ECG. Normal sinus rhythm rate of 68. No acute ST changes seen. Code Status & VTE Plan VTE Prophylaxis Plan VTE Prophylaxis will be ordered: Yes (1) Fall Encounter type: initial encounter Qualified Code(s): W19.XXXA - Unspecified fall, initial encounter
--- NOTE | 2024-07-16 23:37 | XRay Report ---
Exam(s): XR LEFT KNEE, 1-2 views EXAM: XR Left Knee, 1 or 2 Views CLINICAL HISTORY: Reason for exam: trauma, unable to bear weight. TECHNIQUE: Frontal and/or lateral views of the left knee. COMPARISON: 04/21/2024 FINDINGS: Bones/joints: Osteopenia. No acute fracture. Osteoarthritis most pronounced within the lateral and patellofemoral compartments. Tiny joint effusion. IMPRESSION: 1. No acute fracture. 2. Osteoarthritis most pronounced within the lateral and patellofemoral compartments. 3. Tiny joint effusion. Electronically signed by: Finn Murphy MD 07/16/24 23:37 PM
[2024-07-17] MEDS: ACETAMINOPHEN 325 MG TAB PO STA (00:38)
[2024-07-17] MEDS ORDERED: ONDANSETRON INJ 2 MG/ML 2 ML VIAL IV PRN (01:39)
[2024-07-17 05:58] LABS: Basophils # (auto) 0.05 K/uL (0.00-0.20); Eosinophils # (auto) 0.21 K/uL (0.00-0.50); Hematocrit (blood only) 39.3 % (37.0-47.0); Hemoglobin 13.3 g/dl (12.0-16.0); Immature Granulocytes # (auto) 0.01 K/uL (0.01-0.20); Immature Granulocytes % (auto) 0.2 %; Lymphocytes # (auto) 1.13 K/uL (1.20-3.40); Lymphocytes % (auto) 21.6 %; Mean Corpuscular Hemoglobin 31.9 pg (25.0-34.0); Mean Corpuscular Hgb Conc 33.8 g/dL (32.0-36.0); Mean Corpuscular Volume 94.2 fL (80.0-100.0); Mean Platelet Volume 9.6 fL (9.4-12.4); Monocytes # (auto) 0.68 K/uL (0.11-0.59); Neutrophils # (auto) 3.14 K/uL (1.40-6.50); Neutrophils % (auto) 60.2 %; Platelet Count 192 K/uL (130-400); RDW Coefficient of Variation 12.7 % (11.5-14.5); RDW Standard Deviation 43.8 fL (36.4-46.3); Red Blood Count 4.17 M/uL (4.20-5.40); White Blood Count 5.22 K/ul (4.8-10.8)
[2024-07-17] MEDS: SODIUM CHLORIDE 0.9% 1,000 ML IV SCH (06:01)
[2024-07-17] MEDS: LEVOTHYROXINE SODIUM 75 MCG TABLET PO SCH (06:05)
[2024-07-17 06:16] LABS: BUN Creatinine Ratio 18.2 (10-20); Calcium 8.9 mg/dl (8.6-10.3); Creatinine Clr Calc Pharmacy 125.6 ml/min; Magnesium 1.7 mg/dl (1.7-2.4); Potassium 4.4 mmol/L (3.5-5.1)
[2024-07-17] MEDS: OXcarbazepine 150 MG TABLET PO SCH (07:54)
[2024-07-17] MEDS: CALCIUM CITRATE 950 MG TAB PO SCH (07:54)
[2024-07-17] MEDS: GABAPENTIN 300 MG CAP PO SCH (07:55)
[2024-07-17] MEDS: CYANOCOBALAMIN (B-12) 500 MCG TABLET PO SCH (07:55)
[2024-07-17] MEDS: levETIRAcetam 250 MG TAB PO SCH (07:55)
[2024-07-17] MEDS: ENOXAPARIN INJ 40 MG/0.4 ML SYR SQ SCH (07:55)
--- NOTE | 2024-07-17 08:49 | Electrocardiogram Report ---
Test Reason : Blood Pressure : */* mmHG Vent. Rate : 68 BPM Atrial Rate : 68 BPM P-R Int : 194 ms QRS Dur : 70 ms QT Int : 400 ms P-R-T Axes : 31 25 32 degrees QTcB Int : 425 ms Normal sinus rhythm Low voltage QRS Borderline ECG When compared with ECG of 10-Jan-2024 08:41, Criteria for Septal infarct are no longer Present Confirmed by Ruben Jaramillo ([id number]) on 07/17/2024 8:49:15 AM Referred By: REFERRED SELF Confirmed By: Ruben Jaramillo
[2024-07-17] MEDS ORDERED: NON-FORMULARY MEDICATION (Cranberry 500 mg Capsule) PO SCH (09:00)
[2024-07-17] MEDS: MAGNESIUM OXIDE 400 MG TAB PO SCH (11:16)
[2024-07-17] MEDS: ACETAMINOPHEN 325 MG TAB PO PRN (14:03)
--- NOTE | 2024-07-17 15:32 | Hospitalist Progress Note ---
Date of Service July 17, 2024 Assessment & Plan (1) Fall: Plan: 73-year-old female with past medical history significant for nontoxic multinodular goiter, hypothyroidism, nocturnal hypoxemia, obstructive sleep apnea, venous insufficiency, diastolic dysfunction, history of CAD, B12 deficiency, lumbar disc disease, epilepsy, syncope, history of PE and DVT, cognitive change, high risk of falls, general anxiety disorder who lives at home with her comes because of fall and also found to have UTI. Patient states she ambulates with a walker. She has a lift chair which patient states that it elevates her so she can stand up. When she was walking with her walker to her lift chair she got somewhat confused and fell on her left side and hit her head. No loss of consciousness. She says when she falls she cannot get up. She was brought in here and imaging studies were okay. But in the ER when she was trying to ambulate her legs were very weak and she could not ambulate. Currently resting comfortably. Hemodynamics are okay. Somewhat hard of hearing. She said she had a headache earlier but resolved now. She had nausea earlier but that improved. Denies any runny nose or sore throat. No fevers. No cough. No chest pain or shortness of. No abdominal pain. States somewhat constipated. Denies blood in stool or black stools. Denies any hematuria. Denies any burning micturition. Appetite is okay. Fall Weakness Ambulatory dysfunction Imaging studies okay PT OT UTI Possibly contributing Empiric Rocephin Will follow cultures Hypothyroidism On Synthyroid TSH 2.6 wnl Epilepsy On Keppra and divalproex and oxcarbazepine and gabapentin DVT prophylaxis - Lovenox Disposition - Medical floor Full code. Admission and Anticipated Discharge Date Admission Date: July 16, 2024 Subjective Pt seen in follow up of fall, amb. dysfunction, UTI Laying in bed in NAD Says she is hurting from her fall when she moves around too much Has some suprapubic tenderness, but no dysuria No fever, chills, chest pain, or shortness of breath Review of Systems Review of Systems: All systems reviewed & are unremarkable except as noted in Subjective Physical Exam Physical Exam: General- obese elderly F Not in distress Head- atraumatic Eyes- PERRL. Neck- supple Lungs- clear to auscultation no wheezing or crackles Heart- regular rate and rhythm; no murmur Abdomen- normal bowel sounds, soft, nontender, no distension Extremities- pretibial edema seen, no erythema seen Neuro- alert, oriented ; PERRL, no facial palsy; no dysarthria; moves extremities. Results & Data Results & Data Vital Signs (Past 12 Hours) Vital Signs Temp Pulse Resp BP Pulse Ox O2 Del Method 07/17/24 07:13 36.9 C 68 16 101/65 93 Room Air Laboratory Results 07/17/24 07/16/24 07/16/24 Range/Units 05:33 19:47 16:48 WBC 5.22 4.82 (4.8-10.8) K/ul RBC 4.17 L 4.84 (4.20-5.40) M/uL Hgb 13.3 15.5 (12.0-16.0) g/dl Hct 39.3 45.3 (37.0-47.0) % MCV 94.2 93.6 (80.0-100.0) fL MCH 31.9 32.0 (25.0-34.0) pg MCHC 33.8 34.2 (32.0-36.0) g/dL RDW Std Deviation 43.8 43.3 (36.4-46.3) fL RDW Coeff of Benigno 12.7 12.5 (11.5-14.5) % Plt Count 192 232 (130-400) K/uL MPV 9.6 9.7 (9.4-12.4) fL Immature Gran % (Auto) 0.2 0.6 % Neut % (Auto) 60.2 62.1 % Lymph % (Auto) 21.6 24.5 % [place] % (Auto) 13.0 9.3 % Eos % (Auto) 4.0 2.7 % Baso % (Auto) 1.0 0.8 % Neut # (Auto) 3.14 2.99 (1.40-6.50) K/uL Lymph # (Auto) 1.13 L 1.18 L (1.20-3.40) K/uL [place] # (Auto) 0.68 H 0.45 (0.11-0.59) K/uL Eos # (Auto) 0.21 0.13 (0.00-0.50) K/uL Baso # (Auto) 0.05 0.04 (0.00-0.20) K/uL Immature Gran # (Auto) 0.01 0.03 (0.01-0.20) K/uL Sodium 133 L 133 L (136-145) mmol/L Potassium 4.4 3.9 (3.5-5.1) mmol/L Chloride 99 98 (98-107) mmol/L Carbon Dioxide 29 28 (21-32) mmol/L Anion Gap 5 7 (3-11) BUN 8 8 (6-23) mg/dl Creatinine 0.44 L 0.50 L (0.6-1.2) mg/dl Est Cr Clr Drug Dosing 125.6 113.6 ml/min eGFR 102.71 99.59 BUN/Creatinine Ratio 18.2 16.0 (10-20) Glucose 96 89 (70-99(Fasting)) mg/dl Calcium 8.9 9.3 (8.6-10.3) mg/dl Magnesium 1.7 1.7 (1.7-2.4) mg/dl Total Bilirubin 0.4 (0.2-1.0) mg/dl AST 11 L (13-39) U/L ALT 8 (7-52) U/L Alkaline Phosphatase 62 (34-104) U/L Total Protein 7.3 (6.0-8.3) gm/dl Albumin 4.1 (3.4-5.0) gm/dl Globulin 3.2 (2.5-4.0) gm/dl Albumin/Globulin Ratio 1.3 (0.9-2) TSH 2.622 (0.300-4.500) uIu/ml Urine Color Dark Yellow Urine Appearance Cloudy A (Clear) Urine pH 6.0 (4.5-7.5) Ur Specific [place] 1.035 H (1.000-1.030) Urine Protein 1+ H (Negative) Urine Glucose (UA) Negative (Negative) Urine Ketones 2+ H (Negative) Urine Blood Negative (Negative) Urine Nitrite Negative (Negative) Urine Bilirubin 1+ H (Negative) Urine Urobilinogen Negative (Negative) Ur Leukocyte Esterase 1+ H (Negative) Urine WBC (Auto) 11-20 H (0-5) /hpf Urine RBC (Auto) 3-5 H (0-2) /hpf U Hyaline Cast (Auto) 0-2 (0-2) /lpf U Epithel Cells (Auto) 11-20 H (0-2) /hpf Urine Bacteria (Auto) 2+ H (None Seen) Medications Administered Current Inpatient Medications Acetaminophen (Acetaminophen 325 Mg Tab) 650 mg PO Q4H PRN PRN Reason: pain/fever Stop: 08/16/24 01:38 Last Admin: 07/17/24 14:03 Dose: 650 mg Calcium Citrate (Calcium Citrate 950 Mg Tab) 950 mg PO QAM SACHA Stop: 08/16/24 08:59 Last Admin: 07/17/24 07:54 Dose: 950 mg Cyanocobalamin (Cyanocobalamin (B-12) 500 Mcg Tablet) [facility] [place] Stop: 08/16/24 08:59 Last Admin: 07/17/24 07:55 Dose: 1,000 mcg Divalproex Sodium (Divalproex Extended Release 500 Mg Tab) 1,000 mg PO HS [facility] Stop: 08/16/24 20:59 Enoxaparin Sodium (Enoxaparin Inj 40 Mg/0.4 Ml Syr) 40 mg SQ Q24H SACHA Stop: 08/16/24 08:59 Last Admin: 07/17/24 07:55 Dose: 40 mg Gabapentin (Gabapentin 300 Mg Cap) 300 mg PO BID [facility] Stop: 08/16/24 08:59 Last Admin: 07/17/24 07:55 Dose: 300 mg Ceftriaxone Sodium (Rocephin) 2,000 mg in 50 mls @ 100 mls/hr IV Q24H [facility] Stop: 07/22/24 20:59 Levetiracetam (Levetiracetam 250 Mg Tab) 750 mg PO BID SACHA Stop: 08/16/24 08:59 Last Admin: 07/17/24 07:55 Dose: 750 mg Levothyroxine Sodium (Levothyroxine Sodium 75 Mcg Tablet) 75 mcg PO DAILYBB SACHA Stop: 08/16/24 06:29 Last Admin: 07/17/24 06:05 Dose: 75 mcg Magnesium Oxide (Magnesium Oxide 400 Mg Tab) 400 mg PO BID SACHA Stop: 08/16/24 09:14 Last Admin: 07/17/24 11:16 Dose: 400 mg Ondansetron HCl (Ondansetron Inj 2 Mg/Ml 2 Ml Vial) 4 mg IV Q6H PRN PRN Reason: Nausea Stop: 08/16/24 01:38 Oxcarbazepine (Oxcarbazepine 150 Mg Tablet) 450 mg PO BID SACHA Stop: 08/16/24 08:59 Last Admin: 07/17/24 07:54 Dose: 450 mg (1) Fall Encounter type: initial encounter Qualified Code(s): W19.XXXA - Unspecified fall, initial encounter
[2024-07-17] MEDS: cefTRIAXone SODIUM 2,000 MG/50 ML BAG IV SCH (20:51)
[2024-07-17] MEDS: DIVALPROEX EXTENDED RELEASE 500 MG TAB PO SCH (20:59)
[2024-07-18 07:21] LABS: Hematocrit (blood only) 38.4 % (37.0-47.0); Mean Corpuscular Hemoglobin 31.9 pg (25.0-34.0); Mean Corpuscular Hgb Conc 33.9 g/dL (32.0-36.0); Mean Corpuscular Volume 94.3 fL (80.0-100.0); Mean Platelet Volume 10.1 fL (9.4-12.4); Platelet Count 182 K/uL (130-400); RDW Coefficient of Variation 12.4 % (11.5-14.5); RDW Standard Deviation 43.2 fL (36.4-46.3); Red Blood Count 4.07 M/uL (4.20-5.40)
[2024-07-18 07:38] LABS: BUN Creatinine Ratio 18.9 (10-20); Calcium 8.7 mg/dl (8.6-10.3); Creatinine Clr Calc Pharmacy 149.3 ml/min; Magnesium 1.7 mg/dl (1.7-2.4); Phosphorus 3.2 mg/dl (2.5-4.9); Potassium 4.1 mmol/L (3.5-5.1)
[2024-07-18] MEDS: PNEUMOCOCCAL VACCINE (PCV20) 20-VAL CONJ-DIP CRM/PF 0.5 ML SYR IM ONE (09:22)
--- NOTE | 2024-07-18 13:09 | Hospitalist Progress Note ---
Date of Service July 18, 2024 Assessment & Plan (1) Fall: Plan: 73-year-old female with past medical history significant for nontoxic multinodular goiter, hypothyroidism, nocturnal hypoxemia, obstructive sleep apnea, venous insufficiency, diastolic dysfunction, history of CAD, B12 deficiency, lumbar disc disease, epilepsy, syncope, history of PE and DVT, cognitive change, high risk of falls, general anxiety disorder who lives at home with her comes because of fall and also found to have UTI. Patient states she ambulates with a walker. She has a lift chair which patient states that it elevates her so she can stand up. When she was walking with her walker to her lift chair she got somewhat confused and fell on her left side and hit her head. No loss of consciousness. She says when she falls she cannot get up. She was brought in here and imaging studies were okay. But in the ER when she was trying to ambulate her legs were very weak and she could not ambulate. Currently resting comfortably. Hemodynamics are okay. Somewhat hard of hearing. She said she had a headache earlier but resolved now. She had nausea earlier but that improved. Denies any runny nose or sore throat. No fevers. No cough. No chest pain or shortness of. No abdominal pain. States somewhat constipated. Denies blood in stool or black stools. Denies any hematuria. Denies any burning micturition. Appetite is okay. Fall Weakness Ambulatory dysfunction Imaging studies okay PT OT UTI Possibly contributing Empiric Rocephin Will follow cultures - multiple organisms - repeat UA Hypothyroidism On Synthyroid TSH 2.6 wnl Epilepsy On Keppra and divalproex and oxcarbazepine and gabapentin DVT prophylaxis - Lovenox Disposition - Medical floor Full code. Admission and Anticipated Discharge Date Admission Date: July 16, 2024 Subjective Pt seen in follow up of fall, amb. dysfunction, UTI Sitting up in chair in NAD Says she is hurting from her fall when she moves around too much Had some suprapubic tenderness, now feels better, no dysuria No fever, chills, chest pain, or shortness of breath Ucultx - multiple organisms - repeat UA Review of Systems Review of Systems: All systems reviewed & are unremarkable except as noted in Subjective Physical Exam Physical Exam: General- obese elderly F Not in distress Head- atraumatic Eyes- PERRL. Neck- supple Lungs- clear to auscultation no wheezing or crackles Heart- regular rate and rhythm; no murmur Abdomen- normal bowel sounds, soft, nontender, no distension Extremities- pretibial edema seen, no erythema seen Neuro- alert, oriented ; PERRL, no facial palsy; no dysarthria; moves extremities. Results & Data Results & Data Vital Signs (Past 12 Hours) Vital Signs Temp Pulse Resp BP Pulse Ox O2 Del Method 07/18/24 07:05 36.5 C 67 16 100/67 90 Room Air Laboratory Results 07/18/24 Range/Units 06:32 WBC 4.80 (4.8-10.8) K/ul RBC 4.07 L (4.20-5.40) M/uL Hgb 13.0 (12.0-16.0) g/dl Hct 38.4 (37.0-47.0) % MCV 94.3 (80.0-100.0) fL MCH 31.9 (25.0-34.0) pg MCHC 33.9 (32.0-36.0) g/dL RDW Std Deviation 43.2 (36.4-46.3) fL RDW Coeff of Benigno 12.4 (11.5-14.5) % Plt Count 182 (130-400) K/uL MPV 10.1 (9.4-12.4) fL Sodium 131 L (136-145) mmol/L Potassium 4.1 (3.5-5.1) mmol/L Chloride 100 (98-107) mmol/L Carbon Dioxide 26 (21-32) mmol/L Anion Gap 5 (3-11) BUN 7 (6-23) mg/dl Creatinine 0.37 L (0.6-1.2) mg/dl Est Cr Clr Drug Dosing 149.3 ml/min eGFR 107.09 BUN/Creatinine Ratio 18.9 (10-20) Glucose 94 (70-99(Fasting)) mg/dl Calcium 8.7 (8.6-10.3) mg/dl Phosphorus 3.2 (2.5-4.9) mg/dl Magnesium 1.7 (1.7-2.4) mg/dl Medications Administered Current Inpatient Medications Acetaminophen (Acetaminophen 325 Mg Tab) 650 mg PO Q4H PRN PRN Reason: pain/fever Stop: 08/16/24 01:38 Last Admin: 07/17/24 14:03 Dose: 650 mg Calcium Citrate (Calcium Citrate 950 Mg Tab) 950 mg PO QAM [facility] Stop: 08/16/24 08:59 Last Admin: 07/18/24 09:20 Dose: 950 mg Cyanocobalamin (Cyanocobalamin (B-12) 500 Mcg Tablet) 1,000 mcg PO QAM SACHA Stop: 08/16/24 08:59 Last Admin: 07/18/24 09:21 Dose: 1,000 mcg Divalproex Sodium (Divalproex Extended Release 500 Mg Tab) 1,000 mg PO HS SACHA Stop: 08/16/24 20:59 Last Admin: 07/17/24 20:59 Dose: 1,000 mg Enoxaparin Sodium (Enoxaparin Inj 40 Mg/0.4 Ml Syr) 40 mg SQ Q24H SACHA Stop: 08/16/24 08:59 Last Admin: 07/18/24 09:21 Dose: 40 mg Gabapentin (Gabapentin 300 Mg Cap) 300 mg PO BID SACHA Stop: 08/16/24 08:59 Last Admin: 07/18/24 09:20 Dose: 300 mg Ceftriaxone Sodium (Rocephin) 2,000 mg in 50 mls @ 100 mls/hr IV Q24H [facility] Stop: 07/22/24 20:59 Last Infusion: 07/17/24 22:07 Dose: Infused Levetiracetam (Levetiracetam 250 Mg Tab) 750 mg PO BID SACHA Stop: 08/16/24 08:59 Last Admin: 07/18/24 09:20 Dose: 750 mg Levothyroxine Sodium (Levothyroxine Sodium 75 Mcg Tablet) 75 mcg PO DAILYBB SACHA Stop: 08/16/24 06:29 Last Admin: 07/18/24 06:08 Dose: 75 mcg Magnesium Oxide (Magnesium Oxide 400 Mg Tab) 400 mg PO BID [facility] Stop: 08/16/24 09:14 Last Admin: 07/18/24 09:21 Dose: 400 mg Ondansetron HCl (Ondansetron Inj 2 Mg/Ml 2 Ml Vial) 4 mg IV Q6H PRN PRN Reason: Nausea Stop: 08/16/24 01:38 Oxcarbazepine (Oxcarbazepine 150 Mg Tablet) 450 mg PO BID [facility] Stop: 08/16/24 08:59 Last Admin: 07/18/24 09:21 Dose: 450 mg (1) Fall Encounter type: initial encounter Qualified Code(s): W19.XXXA - Unspecified fall, initial encounter
[2024-07-18 14:53] LABS: Appearance Urine Clear (Clear); Bacteria Urine Automated None Seen (None Seen); Bilirubin Urine Negative (Negative); Blood Urine Negative (Negative); Cast Urine Automated 0-2 /lpf (0-2); Color Urine Yellow; Glucose Urine UA Negative (Negative); Ketones Urine 1+ (Negative); Leukocyte Esterase Urine Negative (Negative); Mucus Urine Present (None Prsent); Nitrite Urine Negative (Negative); Protein Urine Trace (Negative); RBC Urine Automated 0-2 /hpf (0-2); Specific Gravity Urine 1.027 (1.000-1.030); Urobilinogen Urine Negative (Negative); WBC Urine Automated 0-5 /hpf (0-5); pH Urine 6.5 (4.5-7.5)
[2024-07-18] MEDS: MAGNESIUM SULFATE / D5W 1 GM/100 ML BAG IV ONE (17:10)
[2024-07-18 20:54] VITALS: RESP 16
--- OUTSIDE RECORDS SUMMARY | 2024-07-18 21:51 | External Medical Summary | Summary of Care ---
Author Name Unknown Organization [facility] Address [address] [place] [address] Phone [phone] Care Team Providers Care Database Report Writer Name Role Phone Kiki Hay MD Primary Care Provider [phone] Encounter Details Date Type Department Care Team (Late st Contact Info) Description 07/15/2024 Result Scan Unspecified Department Loren Cerrato Hailey, DO [address] [facility] [address] <No scans attached> Allergies Active Allergy Reactions Criticality Noted Date Comments Acetaminophen-Codeine Other (Please comment) 12/02/2013 Patient reports Tylenol #3 caused increased seizure activity Amoxicillin 04/20/1999 rash, nausea Codeine 07/26/2021 Other reaction(s): Unknown documented as of this encounter (statuses as of 07/15/2024) Medications Acetaminophen 500 MG Oral Tablet Take 1 Tablet by mouth every 6 hours as needed for Pain. Active MEDICAL INSTRUCTIONS Stairlift needed for Sintia ShahLEONARDO 1950. [place] Customer Number: [id number] 1 Each 1 Active Multivitamin Adult Oral Tablet Take by mouth 1 Tablet daily . Active Calcium Citrate-Vitamin D 315-5 MG-MCG Oral Tablet Take 1 Tablet by mouth in the morning. Active B-12 1000 MCG Oral TabletIndications :B12 deficiency Take 1,000 mcg by mouth in the morning. 90 Tablet 3 3 Active Cranberry 500 MG Oral Capsule Take 1 Capsule by mouth in the morning and 1 Capsule before bedtime. Active Docusate Sodium 100 MG Oral Capsule (Colace) Take 1 Capsule by mouth in the morning and 1 Capsule before bedtime. 10 Capsule 3 Active Gabapentin 300 MG Oral Capsule (Neurontin)Indica tions:Lumbar degenerative disc disease Take 1 Capsule by mouth in the morning and 1 Capsule in the evening. 180 Capsule 3 3 Active Alendronate Sodium 70 MG Oral Tablet (Fosamax)Indicati ons:Age-related osteoporosis with current pathological fracture with routine healing, subsequent encounter Take 1 Tablet by mouth once a week. with 8 oz. water 30 minutes before first meal of the day. Remain upright for 30 min after taking tablet 15 Tablet 3 3 Active Fluticasone Propionate 50 MCG/ACT Nasal Suspension (Flonase) Administer 2 Sprays into nostril in the morning. 4 Active ProAir HFA 108 (90 Base) MCG/ACT Inhalation Aerosol SolutionIndicatio ns:Bronchitis due to COVID-19 virus Inhale 2 Puffs by mouth every 4 hours as needed for Wheezing. 18 g 1 4 Active Spacer/Aero-Holdi ng Chambers DeviceIndications :Bronchitis due to COVID-19 virus Use with inhaler. 1 Each 4 Active Levothyroxine Sodium 75 MCG Oral Tablet (Levoxyl) TAKE 1 TABLET BY MOUTH ONCE DAILY IN THE MORNING 30 MINUTES BEFORE BREAKFAST OR OTHER MEDICATIONS 90 Tablet 1 4 Active levETIRAcetam 750 MG Oral Tablet Take 1 Tablet by mouth in the morning and 1 Tablet before bedtime. 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 540 Tablet 4 Active documented as of this encounter (statuses as of 07/15/2024) Active Problems Problem Noted Date Diagnosed Date Cognitive change 10/26/2022 At risk for falls 10/26/2022 JUSTIN (generalized anxiety disorder) 10/26/2022 Coronary artery disease invo lving chicken ranch coronary artery of chicken ranch heart without angina pectoris 12/15/2021 Diastolic dysfunction 11/20/2020 History of nonmelanoma skin cancer 06/09/2018 Overview (06/09/2018): BCC right upper arm 08/26 FORREST (obstructive sleep apnea) 02/24/2018 History of DVT (deep vein thrombosis) 04/08/2015 Venous insufficiency 04/08/2015 Nocturnal hypoxemia 11/09/2014 Syncope 09/02/2014 Lumbar degenerative disc disease 12/16/2013 B12 deficiency 05/01/2012 Hypothyroidism 10/30/2011 History of pulmonary embolism 05/01/2011 Non-toxic multinodular goiter 11/22/2007 EPILEPSY;NONCONV,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 SUMMARY: Goal: Establish test [...] contact study staff at ; after hours Wildlife Biology Internship via the [facility] dip lube operator . Please contact study team before resolving/deleting from patients problem list. Study phone number: [phone]. Diagnosis changed due to Research Module. Go to Snapshot for study details. Encounter for examination fo r normal comparison and control in clinical research program 10/12/2018 04/11/2022 Overview (11/27/2020): DO NOT DELETE - [facility] Study: Project # [id number], Wildlife Biology Internship: Andi White, MS, MPH. SUMMARY: Goal: Establish [...] contact study staff at ; after hours Wildlife Biology Internship via the [facility] dip lube operator . - Please contact study team before resolving/deleting from patients problem list. Study phone number: [phone]. Diagnosis changed due to Research Module. Go to Snapshot for study details. Body mass index (BMI) of 40. 0 to 44.9 in adult 09/23/2017 09/27/2022 Overview: Per Obesity protocol #1 History of nonmelanoma skin cancer 05/05/2017 05/06/2017 Overview (05/05/2017): BCC right upper arm 08/26 Venous ulcer of ankle 04/08/20152016 Chronic ulcer of ankle 04/08/201502/26 Chronic anticoagulation 04/08/201509/11 Chronic rhinitis 10/30/2011 05/06/2017 Edema 03/28/2010 05/06/2017 Major depressive disorder, s casie episode, severe, with psychosis 09/06/2009 09/03/2017 Overview (07/22/2014): Dr. Lawrence Dx per [facility] records. Feels she had psychosis from taking Dilantin Anticoagulation management encounter 01/10/2009 09/27/2022 VENOUS THROMBOSIS RECURRENT 01/10/2009 02/26/2017 ADVANCE DIRECTIVE INFORMATION 09/24/2005 02/26/2017 Overview (09/24/2005): No, Advance Directive brochure given to patient at prior appointment. Dermatophytosis of nail 05/24/2003/0 08/2010 documented as of this encounter (statuses as of 07/15/2024) Immunizations Name Administration Dates Next Due COVID-19 mRNA, LNP-s, No Pre serve, 2-Dose Series (Pfizer) 11/09/2020,10/19/2020 Pneumococcal Conjugate Vacc, 13 Valent (Prevnar) 02/26/2017 Pneumococcal Polysaccharide PPV23 (Pneumovax) 03/08/2019 Season Influenza, Quad, PF, Adjuvanted, 65+ Yrs, IM (FLUAD) 04/26/2020 Seasonal Influenza Vac., MDV , IM, 0.5 mL (Fluzone) 05/20/2014,05/03/2013,05/01/2012,05/01 Seasonal Influenza, High Dos e, Trivalent, PF, IM (Fluzone HD) 04/30/2024 Seasonal Influenza, PF, 6 M & above, IM , (FluLaval or Fluzone) 09/07/2018,05/06/2017 Seasonal Influenza, Quadriva lent Hd (Fluzone Hd) 05/08/2023,05/07/2022,11/08/2021,08/01 Seasonal Influenza, Quadriva lent Hd, 65+ Yrs 11/02/2021 Seasonal Influenza, Quadriva lent, No Preserve, IM 04/30/2016,05/26/2015 TD, Preservative Free 08/11/1990 TDAP (age 10 and older)(Boostrix) 02/28/2021 TDAP, Age 7 and older, IM (Adacel) 03/28/2008 Varicella Zoster Vaccine (Adult) 05/01/2012 Zoster Vaccine Recombinant (Shingrix) 04/28/2020 ,01/30/2020 documented as of this encounter Social History Tobacco Use Types Packs/Day Years Used Date Smoking Tobacco: Never Smokeless Tobacco: Never Alcohol Use Standard Drinks/Week Comments No 0 (1 standard drink = 0.6 oz pur e alcohol) PHQ-2 Answer Date Recorded PHQ Adult Total Score 0 04/30/2024 Hunger Vital Sign Answer Date Recorded Within the past 12 months, y ou worried that your food would run out before you got the money to buy more. Never true 10/31/19 24 Within the past 12 months, t he food you bought just didn't last and you didn't have money to get more. Never true 10/31/2023 Childcare Answer Date Recorded Do you feel overwhelmed with taking care of a child, family member or friend? No 10/31/2023 Does your family need help f inding childcare? (Household - for ages 0-17 years) Not on file 10/31/2023 Clothing Answer Date Recorded Have you been unable to get clothing when it was really needed? No 10/31/2023 Is your family able to get c lothes or diapers when needed? (Household - for ages 0-17 years) Not on file 10/31/2023 Personal Safety Answer Date Recorded Do you feel unsafe or have concerns for your saf ety? No 10/31/2023 Do you have concerns for you r family's safety? (Household - for ages 0-17 years) Not on file 10/31/2023 Utilities Answer Date Recorded Do you have trouble paying y our heating, water, or electric bill? No 10/31/2023 Is your family able to pay t he heat, water, or electric bill? (Household - for ages 0-17 years) Not on file 10/31/2023 Does your family have access to good internet? (Household - for ages 0-17 years) Not on file 10/31/2023 Employment Status Answer Date Recorded Are you unemployed or without regular income? No 10/31/2023 Does the household have a re gular source of income? (Household - for ages 0-17 years) Not on file 10/31/2023 Social Connections Answer Date Recorded How often do you feel lonely or isolated from th ose around you? Never 10/31/2023 Financial Resource Strain Answer Date R ecorded Do you have any trouble payi ng for your medications, or do you think you might in the future? No 10/31/2023 Does your family have troubl e paying for medicine? (Household - for ages 0-17 years) Not on file 10/31/2023 Transportation Needs Answer Date Record ed READ ONLY Do you have troubl e getting a ride to medical visits or work? Never True 10/31/2023 Does your family have a hard time getting a ride to doctors visits? (Household - for ages 0-17 years) Not on file 10/31/2023 Has lack of transportation k ept you from medical appointments, meetings, work, or from getting things needed for daily living? Check all that apply. (Adult - for ages 18 years and over) Not on file 10/31/2023 Do you (or your family) have trouble finding or paying for a ride (transportation)? (Household - for ages 0-17 years) Not on file 10/31/2023 Housing Stability Answer Date Recorded Do you currently live in a s helter or have no steady place to sleep at night? No 10/31/2023 READ ONLY Do you think you a re at risk of becoming homeless? No 10/31/2023 Does your family worry about paying for your home or becoming homeless? (Household - for ages 0-17 years) Not on file 0 10/31/2023 Are you homeless or worried that you might be in the future? (Adult - for ages 18 years and over) Not on file Are you (or your family) juan eless or worried that you might be in the future? (Household - for ages 0-17 years) Not on file Food Insecurity Answer Date Recorded Do you need food for this week? No 10/31/2023 Are you able to get enough f ood for your family? (Household - for ages 0-17 years) Not on file 10/31/2023 Does your family need food t his week? (Household - for ages 0-17 years) Not on file 10/31/2023 Do you always have enough fo od for your family? 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 Answer Date of Assessment Author No 05/27/2023 3:37 AM Alejandro Rooney RN * Are you blind or do you have serious difficulty seeing, even when wearing glasses? Answer Date of Assessment Author No 05/27/2023 3:37 AM Alejandro Rooney RN * Do you have serious difficulty walking or climbing stairs? (5 years old or older) Answer Date of Assessment Author No 05/27/2023 3:37 AM Alejandro Rooney RN * Do you have difficulty dressing or bathing? (5 years old or older) Answer Date of Assessment Author No 05/27/2023 3:37 AM Alejandro Rooney RN * Because of a physical, mental, or emotional condition, do you have difficulty doing errands alone such as visiting a doctors office or shopping? (15 years old or older) Answer Date of Assessment Author No 05/27/2023 3:37 AM Alejandro Rooney RN documented as of this encounter Mental Status * Because of a physical, mental, or emotional condition, do you have serious difficulty concentrating, remembering, or making decisions? (5 years old or older) Answer Entry Date Author No 05/27/2023 3:37 AM Alejandro Rooney RN documented in this encounter Plan of Treatment Upcoming Encounters Date Type Department Care Team (Late st Contact Info) Description 11/05/2024 2:00 PM EDT Office Visit General Internal Medicine [facility] [address] [place] [address] Kiki Hay MD [address] [facility] [place] [address] Scheduled Procedures Name Priority Associated Diagnoses Date/Ti me COLONOSCOPY FLEXIBLE PROXIMA L DIAGNOSTIC Recall Encounter for screening colonoscopy Health Maintenance Due Date Last Done Comments Cologuard 10/16/1996 Fecal Occult Blood Test 10/16/1996 Sigmoidoscopy 10/16/1996 Adult Wellness Visit 02/09/2022 02/09/2021 COVID-19 Vaccine ( season) 2024 11/09/2020, 10/19/2020 Mammogram 07/15/2024 07/15/2023, 12/2022, 05/24/2022, Additional history exists Depression Screening 04/30/2025 04/30/2024 TSH 04/30/2025 04/30/2024, 05/12, 05/08/2023, Additional history exists Colonoscopy 06/02/2028 06/02/2018, 05/30/2008 Colorectal Cancer Screening 06/02/2028 DXA Scan 05/20/2030 05/20/2023, 05/11, 03/04/2017, Additional history exists DTap/Tdap Vaccines (3 - Td or Tdap) 02/28/2031 02/28/2021, 03/28/2008, 08/11/1990, Additional history exists Pneumococcal Vaccine: 65+ Years Completed 03/08/2019, 02/26/2017 Zoster Vaccines Completed 04/28/2020, 01/10, 05/01/2012 Influenza Vaccine (FLU shot) Completed , 05/08/2023, 05/07/2022, Additional history exists HPV (Gardasil) Vaccine Aged Out No lo nger eligible based on patient's age to complete this topic Hepatitis B Vaccine Aged Out No longe r eligible based on patient's age to complete this topic MENINGOCOCCAL (MENACTRA/MENVEO) Aged Out No longer eligible based on patient's age to complete this topic documented as of this encounter Medical Devices Implanted Type [employer] Device Identifier Shelf Expiration Date Model / Serial / Lot Envista Hydrophobic Acrylic Intraocular Lens Implanted:Qty: 1 on 04/10/2022 by Gregory Nagel DO at OR [facility] Left: Eye [employer] 12/09/2023 [id number] / [id number] / [id number] Envista Intraocular Lens Implanted:Qty: 1 on 06/05/2022 by Gregory Nagel DO at OR [facility] Right: Eye [employer] 07/10/2024 [id number] / [id number] / [id number] documented as of this encounter Procedures Procedure Name Priority Date/Time Associated Diagnosis Comments CARDIOLOGY SCANNED RESULT 07/15/2024 documented in this encounter Results * CARDIOLOGY SCANNED RESULT (07/15/2024) 07/15/2024 Loren Cerrato DO OTHER Final R esult documented in this encounter Advance Directives * Full Code (Latest Code Status on File) Date Activated Date Inactivated Comments 05/27/2023 1:25 AM 05/29/2023 6:34 PM This order reflects the patients wishes and were consensually agreed upon. Question Answer Comments Discussion of Advance Directives occurred with: Patient * Full Code Date Activated Date Inactivated Comments 06/05/2022 8:45 AM 06/05/2022 3:21 PM Question Answer Comments Discussion of Advance Direct constantino occurred with: Not Discussed due to patient's condition * Full Code Date Activated Date Inactivated Comments 04/10/2022 9:31 AM 04/10/2022 3:30 PM Question Answer Comments Discussion of Advance Directives occurred with: Not Discussed Care Teams Database Report Writer Relationship Specialty Start Date End Date Kiki Hay MD [address] [place] [address] PCP - General Internal Medicine 07/29/21 documented as of this encounter
--- OUTSIDE RECORDS SUMMARY | 2024-07-18 21:51 | External Medical Summary ---
Author Name Unknown Address Unknown Organization K01:[facility] [place] [address] [place] [address] Laboratory Report Ordering Provider Test Date Status AMERICO COLUNGA 04/30/2024 14:44:30 Final Deficient: <20 ng/mL
Ins ufficient: 20-29 ng/mL
Recommended/Optimum:30-50 ng/mL

Vitamin D intoxication is rare. If suspicious of Vitamin D toxicity, evaluation of serum Calcium and PTH is recommended. Observation Date Value Abnormality Reference (Units ) Status 25-OH Vitamin D total 04/30/2024 14:44:30 20 >19 (ng/mL) Final Performing Location [facility] - [address] [place] [address]
--- OUTSIDE RECORDS SUMMARY | 2024-07-18 21:51 | External Medical Summary ---
Author Name Unknown Address Unknown Organization K09:[facility] [place] [facility] [place] [address] Laboratory Report Ordering Provider Test Date Status AMERICO COLUNGA 04/30/2024 14:44:30 Final Observation Date Value Abnormality Reference (Units ) Status BUN 04/30/2024 14:44:30 10 6-20 (mg/dL) Final Creatinine 04/30/2024 14:44:30 0.5 0.5-1.0 (mg/dL) Final Glomerular filtration rate/1.73 sq M.predicted [Volume Rate/Area] in Serum, Plasma or Blood by Creatinine-based formula (CKD-EPI) 04/30/2024 14:44:30 >90 >=60 (mL/min) Final eGFR is calculated based on the CKD-EPI 2020 equation. Sodium 04/30/2024 14:44:30 136 135-146 (m mol/L) Final Potassium 04/30/2024 14:44:30 4.3 3.5-5.1 (m mol/L) Final Cl 04/30/2024 14:44:30 100 98-107 (mm ol/L) Final CO2 04/30/2024 14:44:30 25 22-32 (mmo l/L) Final Anion gap 04/30/2024 14:44:30 11 7-15 (mmol /L) Final Glucose 04/30/2024 14:44:30 105 70-120 (mg /dL) Final Albumin 04/30/2024 14:44:30 3.9 3.8-5.0 (g /dL) Final AST (Aspartate aminotransferase) 04/30/2024 14:44:30 11 10-35 (U/L) Fin al Alk Phos 04/30/2024 14:44:30 68 35-130 (U/ L) Final Bilirubin, Total 04/30/2024 14:44:30 0.3 <=1 .2 (mg/dL) Final Calcium 04/30/2024 14:44:30 9.6 8.4-10.2 ( mg/dL) Final Protein 04/30/2024 14:44:30 6.9 6.0-8.3 (g /dL) Final ALT (Alanine aminotransferase) 04/30/2024 14:44:30 9 Below low normal 10-35 (U/L) Final Performing Location [facility] [place] [address] [place] [address]
--- OUTSIDE RECORDS SUMMARY | 2024-07-18 21:51 | External Medical Summary | Summary of Care ---
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 [place] Customer Number: [id number] 1 Each 1 021 Active Multivitamin Adult Oral Tablet Take by mouth 1 Tablet daily . Active Calcium Citrate-Vitamin D 315-5 MG-MCG Oral Tablet Take 1 Tablet by mouth in the morning. Active B-12 1000 MCG Oral TabletIndication s:B12 deficiency Take 1,000 mcg by mouth in the morning. 90 Tablet 3 023 Active Cranberry 500 MG Oral Capsule Take 1 Capsule by mouth in the morning and 1 Capsule before bedtime. Active Docusate Sodium 100 MG Oral Capsule (Colace) Take 1 Capsule by mouth in the morning and 1 Capsule before bedtime. 10 Capsule 023 Active Gabapentin 300 MG Oral Capsule (Neurontin)Indic ations:Lumbar degenerative disc disease Take 1 Capsule by mouth in the morning and 1 Capsule in the evening. 180 Capsule 3 023 Active Alendronate Sodium 70 MG Oral Tablet (Fosamax)Indicat ions:Age-related osteoporosis with current pathological fracture with routine healing, subsequent encounter Take 1 Tablet by mouth once a week. with 8 oz. water 30 minutes before first meal of the day. Remain upright for 30 min after taking tablet 15 Tablet 3 023 Active Fluticasone Propionate 50 MCG/ACT Nasal Suspension (Flonase) Administer 2 Sprays into nostril in the morning. 024 Active ProAir HFA 108 (90 Base) MCG/ACT Inhalation Aerosol SolutionIndicati ons:Bronchitis due to COVID-19 virus Inhale 2 Puffs by mouth every 4 hours as needed for Wheezing. 18 g 1 024 Active Spacer/Aero-Hold ing Chambers DeviceIndication s:Bronchitis due to COVID-19 virus Use with inhaler. 1 Each 024 Active Levothyroxine Sodium 75 MCG Oral Tablet (Levoxyl) TAKE 1 TABLET BY MOUTH ONCE DAILY IN THE MORNING 30 MINUTES BEFORE BREAKFAST OR OTHER MEDICATIONS 90 Tablet 1 024 Active levETIRAcetam 750 MG Oral Tablet Take 1 Tablet by mouth in the morning and 1 Tablet before bedtime. 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 540 Tablet Active Benefiber Oral Tablet Chewable Take 1 Tablet by mouth in the morning. 2023 Discontinued Benefiber Oral PowderIndication s:Constipation, unspecified constipation type Take 1 Tbsf in a glass of water daily 2023 Discontinued Aspirin 81 MG Oral Tablet Delayed Release Take 1 Tablet by mouth in the morning. 2023 Discontinued Divalproex Sodium ER 500 MG Oral Tablet Extended Release 24 Hour (Depakote ER)Indications:G eneralized nonconvulsive epilepsy without intractable epilepsy (HCC) TAKE 2 TABLETS BY MOUTH ONCE DAILY DO NOT CUT, CRUSH OR CHEW 180 Tablet 024 2023 Discontinued(R efill) OXcarbazepine 150 MG Oral Tablet (Trileptal)Indic ations:Generaliz ed nonconvulsive epilepsy without intractable epilepsy (HCC) TAKE 3 TABLETS BY MOUTH TWICE DAILY 540 Tablet 024 2023 Discontinued(R efill) documented as of this encounter (statuses as of 06/18/2024) Active Problems Problem Noted Date Diagnosed Date Cognitive change 10/26/2022 At risk for falls 10/26/2022 JUSTIN (generalized anxiety disorder) 10/26/2022 Coronary artery disease invo lving [place] coronary artery of [place] heart without angina pectoris 12/15/2021 Diastolic dysfunction [...] as of this encounter (statuses as of 06/18/2024) Resolved Problems Problem Noted Date Diagnosed Date Resolved Date Closed wedge compression fra cture of T6 vertebra 05/27/2023 04/30/2024 Overview (04/30/2024): T6 in 05/2023 Encounter for examination fo r normal comparison and control in clinical research program 10/12/2018 03/13/2020 Overview (11/27/2020): DO NOT DELETE [employer] Study: Project # [id number], Car Repairman: Israel Acevedo, PhD. SUMMARY: Goal: Establish test [...] contact study staff at ; after hours Car Repairman via the [facility] hospital bone cooking operator . Please contact study team before resolving/deleting from patients problem list. Study phone number: [phone]. Diagnosis changed due to Research Module. Go to Snapshot for study details. Encounter for examination fo r normal comparison and control in clinical research program 10/12/2018 04/11/2022 Overview (11/27/2020): DO NOT DELETE - [employer] Study: Project # [id number], Car Repairman: Andi White, MS, MPH. SUMMARY: Goal: Establish [...] contact study staff at ; after hours Car Repairman via the [facility] hospital bone cooking operator . - Please contact study team before resolving/deleting from patients problem list. Study phone number: [phone]. Diagnosis changed due to Research Module. Go [...] 09/03/2017 Overview (07/22/2014): Dr. Lawrence Dx per count includes the [facility] records. Feels she had psychosis from taking Dilantin Anticoagulation management encounter 01/10/2009 09/27/2022 VENOUS THROMBOSIS RECURRENT 01/10/2009 02/26/2017 ADVANCE DIRECTIVE INFORMATION 09/24/2005 02/26/2017 Overview (09/24/2005): No, Advance Directive brochure given to patient at prior appointment. Dermatophytosis of nail 05/24/2003 11/0 08/2010 documented as of this encounter (statuses as of 06/18/2024) Immunizations Name Administration Dates Next Due COVID-19 [...] No 10/31/2023 Does the household have a [facility] source of income? (Household - for ages [...] Sign Reading Time Taken Comments Blood Pressure 128/62 06/18/2024 3:51 PM EST Pulse 72 06/18/2024 3:51 PM EST Temperature 37.3 C (99.1 F) 06/18/2024 3:51 PM ES T Respiratory Rate 18 06/18/2024 3:51 PM EST Oxygen Saturation 95% 06/18/2024 3:51 PM EST Inhaled Oxygen Concentration - - Weight 86.7 kg (191 lb 3.2 oz) 06/18/2024 3:51 P M EST Height - - Body Mass Index 33.87 05/27/2023 3:20 AM EDT documented in this encounter Functional Status * Are you deaf or do you have serious difficulty hearing? Answer Date of Assessment Author No 05/27/2023 3:37 AM EDT Alejandro Ospina RN * Are you blind or do you have serious difficulty seeing, even when wearing glasses? Answer Date of Assessment Author No 05/27/2023 3:37 AM EDT Alejandro Ospina RN * Do you have serious difficulty walking or climbing stairs? (5 years old or older) Answer Date of Assessment Author No 05/27/2023 3:37 AM WILIT Alejandro Ospina RN * Do you have difficulty dressing or bathing? (5 years old or older) Answer Date of Assessment Author No 05/27/2023 3:37 AM EDT Alejandro Ospina RN * Because of a physical, mental, [...] Entry Date Author No 05/27/2023 3:37 AM EDT Alejandro Ospina RN documented in this encounter Progress Notes * Loren Rudolph MD - 06/18/2024 4:46 PM EST CLINIC NOTES Neurology [facility] [address] [place] [address] Sintia Shah : 1950 NEUROLOGY OUTPATIENT NOTE 06/18/2024 HISTORY: The patient is referred for consultation by Dr. Hay, who will be receiving a copy of this note. Reason for consultation continued follow-up for localization-related epilepsy. This patient is a patient of Dr. Hutchison's was followed for some time she is on therapy with Trileptal Keppra and Depakote. She lives home with her but her children keep an eye on her via multiple cameras in the home. The last 1 year she may have had 2 or 3 seizures. Her son believes they were associated with medication noncompliance and that he has been able to minimize that . 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 Patient Active Problem List Diagnosis EPILEPSY;NONCONV,W/O INTRACTABLE DIVERTICULOSIS OF COLON Non-toxic multinodular goiter History of pulmonary embolism Hypothyroidism B12 deficiency Lumbar degenerative disc disease Syncope Nocturnal hypoxemia History of DVT (deep vein thrombosis) Venous insufficiency FORREST (obstructive sleep apnea) History of nonmelanoma skin cancer Diastolic dysfunction Coronary artery disease involving [place] coronary artery of [place] heart without angina pectoris Cognitive change At risk for falls JUSTIN (generalized anxiety disorder) Past Surgical History: Procedure Laterality Date BACK/FLANK SUBQ TUMOR REMOVAL, UNDER 3 CM 11/18/2012 11/18/2012 excision of sebaceous cyst from mid back - Dr. Valdo Ontiveros COLONOSCOPY, DIAGNOSTIC (RECTUM) 05/30/2008 repeat in 10 years, diverticulosis. COLONOSCOPY, DIAGNOSTIC (RECTUM) 06/02/2018 diverticulosis, repeat 10 yrs/[facility] INFORMATION 11/19/2007 [facility]: thyoid ultrasound showed multinodular thyroid LIGATE/CUT OVIDUCT(S) Tubal Ligation PERC VERTEBRAL AUGMENTATION LUMBAR KYPHOPLASTY 04/02/2021 [facility] in [place] REMOVAL OF TONSILS, UNDER AGE 12 REMOVE CATARACT, INSERT LENS PROSTH Left 04/10/2022 LEFT EXTRACAPSULAR CATARACT REMOVAL WITH INTRAOCULAR LENS performed by Gregory Nagel DO at OR [facility] REMOVE CATARACT, INSERT LENS PROSTH Right 06/05/2022 RIGHT EXTRACAPSULAR CATARACT REMOVAL WITH INTRAOCULAR LENS performed by Gregory Nagel DO at OR [facility] Social History Socioeconomic History Marital status: Spouse name: Wolf Number of children: 6 Years of education: Not on file Highest education level: Not on file Occupational History 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 (Adult - for ages 18 years and over): No Does your family have trouble paying for medicine? (Household - for ages 0-17 years): Not on file Food Insecurity: No Food Insecurity (10/31/2023) Food Insecurity Do you need food for this week? (Adult - for ages 18 years and over): No Are you able to get enough food for your family? (Household - for ages 0-17 years): Not on file Does your family need food this week? (Household - for ages 0-17 years): Not on file Do you always have enough food for your family? (Household - for ages 0-17 years): Not on file Transportation Needs: No Transportation Needs (10/31/2023) Transportation Needs Do you have trouble getting a ride to medical visits or work? (Adult - for ages 18 years and over):Never True Does your family have a hard time getting a ride to doctors visits? (Household - for ages 0-17 years): Not on file Has lack of transportation kept you from medical appointments, meetings, work, or from getting things needed for daily living? Check all that apply. (Adult - for ages 18 years and over): Not on file Do you (or your family) have trouble finding or paying for a ride (transportation)? (Household - for ages 0-17 years): Not on file Social Connections: Socially Integrated (10/31/2023) Social Connections How often do you feel lonely or isolated from those around you? (Adult - for ages 18 years and over): Never Housing Stability: Low Risk (10/31/2023) Housing Stability Do you currently live in a long term or have no steady place to sleep at night? (Adult - for ages 18 years and over): No Do you think you are at risk of becoming homeless? (Adult - for ages 18 years and over): No Does your family worry about paying for your home or becoming homeless? (Household - for ages 0-17 years): Not on file Are you homeless or worried that you might be in the future? (Adult - for ages 18 years and over): Not on file Are you (or your family) homeless or worried that you might be in the future? (Household - for ages0-17 years): Not on file Family History Problem Relation Name Age of Onset No Known Problems Brother Other (Other) Daughter covid Cervical Cancer Daughter Thyroid cancer Daughter Dementia Mother Colon cancer Mother Colon cancer Grandmother (Paternal) Lung Disorder Father at 78, Heavy Smoker Emphysema Father Current Outpatient Medications Medication Sig Dispense Refill Acetaminophen 500 MG Oral Tablet Take 1 Tablet by mouth every 6 hours as needed for Pain. MEDICAL INSTRUCTIONS Stairlift needed for Sintia Shah, 1950. [place] Customer Number: [id number] 1 Each 1 Multivitamin Adult Oral Tablet Take by mouth 1 Tablet daily . Calcium Citrate-Vitamin D 315-5 MG-MCG Oral Tablet Take 1 Tablet by mouth in the morning. B-12 1000 MCG Oral Tablet Take 1,000 mcg by mouth in the morning. 90 Tablet 3 Cranberry 500 MG Oral Capsule Take 1 Capsule by mouth in the morning and 1 Capsule before bedtime. Docusate Sodium 100 MG Oral Capsule (Colace) Take 1 Capsule by mouth in the morning and 1 Capsule before bedtime. 10 Capsule 0 Gabapentin 300 MG Oral Capsule (Neurontin) Take 1 Capsule by mouth in the morning and 1 Capsule in the evening. 180 Capsule 3 Alendronate Sodium 70 MG Oral Tablet (Fosamax) Take 1 Tablet by mouth once a week. with 8 oz. water30 minutes before first meal of the day. Remain upright for 30 min after taking tablet 15 Tablet 3 Fluticasone Propionate 50 MCG/ACT Nasal Suspension (Flonase) Administer 2 Sprays into nostril in the morning. ProAir HFA 108 (90 Base) MCG/ACT Inhalation Aerosol Solution Inhale 2 Puffs by mouth every 4 hours as needed for Wheezing. 18 g 1 Spacer/Aero-Holding Chambers Device Use with inhaler. 1 Each 0 Levothyroxine Sodium 75 MCG Oral Tablet (Levoxyl) TAKE 1 TABLET BY MOUTH ONCE DAILY IN THE MORNING 30 MINUTES BEFORE BREAKFAST OR OTHER MEDICATIONS 90 Tablet 1 levETIRAcetam 750 MG Oral Tablet Take 1 Tablet by mouth in the morning and 1 Tablet before bedtime.180 Tablet 1 Divalproex Sodium ER 500 MG Oral Tablet Extended Release 24 Hour (Depakote ER) TAKE 2 TABLETS BY MOUTH ONCE DAILY DO NOT CUT, CRUSH OR CHEW 180 Tablet 1 OXcarbazepine 150 MG Oral Tablet (Trileptal) Take 3 Tablets by mouth in the morning and 3 Tablets before bedtime. 540 Tablet 0 No current facility-administered medications for this visit. Review of patient's allergies indicates: Allergen Reactions Acetaminophen-Codeine Other (Please comment) Patient reports Tylenol #3 caused increased seizure activity Amoxicillin rash, nausea Codeine Other reaction(s): Unknown Results for orders placed or performed in visit on 04/30/24 CBC Result Value Ref Range WBC 8.39 4.00 - 10.80 K/uL RBC 4.32 3.85 - 5.15 M/uL HGB 14.2 12.0 - 15.3 g/dL HCT 41.7 36.0 - 45.2 % MCV 96.5 81.5 - 97.5 fL MCH 32.9 27.0 - 34.0 pg MCHC 34.1 32.0 - 36.0 g/dL RDW 13.3 11.5 - 15.5 % PLT 263 140 - 400 K/uL MPV 9.8 6.6 - 11.1 fL Results for orders placed or performed in visit on 10/24/23 BASIC METABOLIC PANEL Result Value Ref Range BUN 10 6 - 20 mg/dL CREATININE 0.5 0.5 - 1.0 mg/dL EGFR >90 >=60 mL/min SODIUM 130 (L) 135 - 146 mmol/L POTASSIUM 4.5 3.5 - 5.1 mmol/L CHLORIDE 95 (L) 98 - 107 mmol/L CO2 25 22 - 32 mmol/L ANION GAP 10 7 - 15 mmol/L GLUCOSE 93 70 - 120 mg/dL CALCIUM 8.9 8.4 - 10.2 mg/dL Results for orders placed or performed in visit on 11/01/22 LIPID PANEL WITH DIRECT LDL IF TG IS HIGH Result Value Ref Range Triglycerides 106 <=174 mg/dL Cholesterol 222 (H) <200 mg/dL HDL Cholesterol 46 (L) >49 mg/dL Non-HDL Cholesterol 176 (H) <=159 mg/dL LDL Cholesterol 155 (H) <=129 mg/dL Lab Results Component Value Date/Time HEMOGLOBIN A1C - [facility] 5.4 09/17/2022 04:57 PM HEMOGLOBIN A1C - [facility] 5.5 10/20/2017 01:54 PM HEMOGLOBIN A1C - [facility] 5.6 06/11/2011 12:06 PM Lab Results Component Value Date/Time TSH - [facility] 2.25 04/30/2024 02:44 PM TSH - [facility] 5.30 (H) 06/04/2023 06:15 AM TSH - [facility] 2.78 05/08/2023 03:04 PM TSH - [facility] 2.70 01/21/2020 10:41 AM TSH - [facility] 1.84 03/15/2019 03:39 PM TSH - [facility] 2.08 03/03/2018 04:22 PM ONEAL LUANN SCREEN Date Value Ref Range Status 10/20/2017 SEE IFA CONFIRMATORY TEST RESULT Final Antinuclear Antibody Pattern, IFA Date Value Ref Range Status 10/20/2017 NOT APPLICABLE PATTERN Final Antinuclear Antibody Titer, IFA Date Value Ref Range Status 10/20/2017 <40 <40 TITER Final Results for orders placed or performed in visit on 04/30/24 VITAMIN B12 Result Value Ref Range Vitamin B12 748 232 - 1,245 pg/mL Results for orders placed or performed in visit on 09/17/22 FOLIC ACID Result Value Ref Range Folic Acid 10.5 >4.5 ng/mL No results found for: "[id number]" No results found for: "[id number]" No results found for: "[id number]" 25OH VITAMIN D TOTAL (ng/mL) Date Value 10/20/2017 17 (L) 09/06/2009 27.3 (L) 25-Hydroxy Vitamin D (ng/mL) Date Value 04/30/2024 20 11/01/2022 27 02/23/2021 28 Vitamin D Level Interpretation deficient: <20 ng/ml insufficient: 20-30 ng/ml normal: 31-100 ng/ml REVIEW OF SYSTEMS: As above PHYSICAL EXAM: BP 128/62 (BP Site: Left Arm, BP Position: Sitting, BP Cuff Size: Regular) | Pulse 72 | Temp 37.3 C (99.1 F) (Tympanic) | Resp 18 | Wt 86.7 kg (191 lb 3.2 oz) | LMP 11/18/2007 | SpO2 95% | BMI 33.87 kg/m | BSA 1.96 m Patient is awake and alert there is minor decreased blink frequency no resting tremor cogwheel rigidity mild generalized bradykinesia. 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 Levels today continue treatment for osteoporosis. Compliance encouraged. Return yearly Loren Rudolph MD 06/18/2024 4:46 PM documented in this encounter Nursing Notes * Adela Grewal LPN - 06/18/2024 3:50 PM EST Patient verified identity by spelling of last name and date. 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) Ordered: 06/18/2024 LEVETIRACETAM LEVEL Lab Routine 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) Ordered: 06/18/2024 Scheduled Procedures Name Priority Associated Diagnoses Date/Ti [...] this encounter Medical Devices Implanted Type Area [employer] Analyst Device Identifier Shelf Expiration Date Model / Serial / Lot Envista Hydrophobic Acrylic Intraocular Lens Implanted:Qty: 1 on 04/10/2022 by Gregory Nagel DO at OR [facility] Left: Eye [employer] 12/09/2023 [id number] / [id number] / [id number] Envista Intraocular Lens Implanted:Qty: 1 on 06/05/2022 by Gregory Nagel DO at OR [facility] Right: Eye [employer] 07/10/2024 [id number] / [id number] / [id number] documented as of this encounter Visit Diagnoses Diagnosis EPILEPSY;NONCONV,W/O INTRACTABLE- Primary Generalized nonconvulsive epilepsy without mention of intractable epilepsy documented in this encounter Advance Directives * [...] Directives occurred with: Not Discussed Care Teams Refractory Bricklayer Relationship Specialty Start Date End Date Kiki Hay MD [address] [place] [address] PCP - General Internal Medicine 07/29/21 documented as of this encounter
--- OUTSIDE RECORDS SUMMARY | 2024-07-18 21:51 | External Medical Summary ---
Author Name Unknown Address Unknown Organization [id number]:LABORATORY [facility] [place] - [address] [place] [address] Laboratory Report Ordering Provider Test Date Status AMERICO COLUNGA 04/30/2024 14:44:30 Final Observation Date Value Abnormality Reference (Units ) Status Vitamin B12 04/30/2024 14:44:30 665 [id number] (pg/mL) Final Performing Location LAB[facility]ATORY [facility] - [address] [place] [address]
--- OUTSIDE RECORDS SUMMARY | 2024-07-18 21:51 | External Medical Summary | Summary of Care ---
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 [facility] Reason for Visit * Reason Onset Date Comments Order Request 05/27/2024 Hospice Encounter Details Date Type Department Care Team (Late st Contact Info) Description 05/27/2024 Telephone General Internal Medicine [employer] [address] [facility] [place] [address] Kiki Hay MD [address] [facility] [place] [address] Order Request (Hospice) Allergies Active Allergy Reactions Criticality Noted Date Comments Acetaminophen-Codeine Other (Please comment) 12/02/2013 Patient reports Tylenol #3 caused increased seizure activity Amoxicillin 04/20/1999 rash, nausea Codeine 07/26/2021 Other reaction(s): Unknown documented as of this encounter (statuses as of 06/02/2024) Medications Medication Sig Dispensed Refills Start Date End Date Status Acetaminophen 500 MG Oral Tablet Take 1 Tablet by mouth every 6 hours as needed for Pain. Active MEDICAL INSTRUCTIONS Stairlift needed for Sintia Shah, 1950. [place] Customer Number: [id number] 1 Each 1 05/21/2021 Active Multivitamin Adult Oral Tablet Take by mouth 1 Tablet daily . Active Calcium Citrate-Vitamin D 315-5 MG-MCG Oral Tablet Take 1 Tablet by mouth in the morning. Active B-12 1000 MCG Oral TabletIndications:B 12 deficiency Take 1,000 mcg by mouth in the morning. 90 Tablet 3 09/27/2022 Active Cranberry 500 MG Oral Capsule Take 1 Capsule by mouth in the morning and 1 Capsule before bedtime. Active Docusate Sodium 100 MG Oral Capsule (Colace) Take 1 Capsule by mouth in the morning and 1 Capsule before bedtime. 10 Capsule 05/29/2023 Active Gabapentin 300 MG Oral Capsule (Neurontin)Indicati ons:Lumbar degenerative disc disease Take 1 Capsule by mouth in the morning and 1 Capsule in the evening. 180 Capsule 3 06/09/2023 Active Benefiber Oral Tablet Chewable Take 1 Tablet by mouth in the morning. 06/13/2023 Active Alendronate Sodium 70 MG Oral Tablet (Fosamax)Indication s:Age-related osteoporosis with current pathological fracture with routine healing, subsequent encounter Take 1 Tablet by mouth once a week. with 8 oz. water 30 minutes before first meal of the day. Remain upright for 30 min after taking tablet 15 Tablet 3 06/16/2023 Active Fluticasone Propionate 50 MCG/ACT Nasal Suspension (Flonase) Administer 2 Sprays into nostril in the morning. 10/14/2023 Active Benefiber Oral PowderIndications:C onstipation, unspecified constipation type Take 1 Tbsf in a glass of water daily 10/28/2023 Active Aspirin 81 MG Oral Tablet Delayed Release Take 1 Tablet by mouth in the morning. 10/28/2023 Active ProAir HFA 108 (90 Base) MCG/ACT Inhalation Aerosol SolutionIndications :Bronchitis due to COVID-19 virus Inhale 2 Puffs by mouth every 4 hours as needed for Wheezing. 18 g 1 10/28/2023 Active Spacer/Aero-Holding Chambers DeviceIndications:B ronchitis due to COVID-19 virus Use with inhaler. 1 Each 10/28/2023 Active Levothyroxine Sodium 75 MCG Oral Tablet (Levoxyl) TAKE 1 TABLET BY MOUTH ONCE DAILY IN THE MORNING 30 MINUTES BEFORE BREAKFAST OR OTHER MEDICATIONS 90 Tablet 1 02/28/2024 Active levETIRAcetam 750 MG Oral Tablet Take 1 Tablet by mouth in the morning and 1 Tablet before bedtime. 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) TAKE 3 TABLETS BY MOUTH TWICE DAILY 540 Tablet 05/27/2024 Active documented as of this encounter (statuses as of 06/02/2024) Active Problems Problem Noted Date Diagnosed Date Cognitive change 10/26/2022 At risk for falls 10/26/2022 JUSTIN (generalized anxiety disorder) 10/26/2022 Coronary artery disease invo lving kake coronary artery of kake heart without angina pectoris 12/15/2021 Diastolic dysfunction 11/20/2020 History of nonmelanoma skin cancer 06/09/2018 Overview: BCC right upper arm 08/26 FORREST (obstructive sleep apnea) 02/24/2018 History of DVT (deep vein thrombosis) 04/08/2015 Venous insufficiency 04/08/2015 Nocturnal hypoxemia 11/09/2014 Syncope 09/02/2014 Lumbar degenerative disc disease 12/16/2013 B12 deficiency 05/01/2012 Hypothyroidism 10/30/2011 History of pulmonary embolism 05/01/2011 Non-toxic multinodular goiter 11/22/2007 EPILEPSY;NONCONV,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 SUMMARY: Goal: Establish test [...] contact study staff at ; after hours [employer] via the [facility] hospital carnallite plant operator . Please contact study team before resolving/deleting from patients problem list. Study phone number: [phone]. Diagnosis changed due to Research Module. Go to Snapshot for study details. Encounter for examination fo r normal comparison and control in clinical research program 10/12/2018 04/11/2022 Overview: DO NOT DELETE - REPUCOM DETECT Study: Project # [id number], [employer]: Andi White, MS, MPH. SUMMARY: Goal: Establish [...] contact study staff at ; after hours [employer] via the [facility] hospital carnallite plant operator . - Please contact study team before resolving/deleting from patients problem list. Study phone number: [phone]. Diagnosis changed due to Research Module. Go [...] 09/06/2009 09/03/2017 Overview: Dr. Lawrence Dx per [facility]. 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 Dermatophytosis of nail 05/24/2003 11/0 08/2010 documented as of this encounter (statuses as of 06/02/2024) Immunizations Name Administration Dates Next Due COVID-19 mRNA, LNP-s, No Pre serve, 2-Dose Series ([employer]) 11/09/2020,10/19/2020 Diptheria/Tetanus (Adult) 08/11/1990 Pneumococcal Conjugate Vacc, [...] No 10/31/2023 Does the household have a [facility]? (Household - [...] ages 0-17 years) Not on file 10/31/2023 Sex and Gender Information Value Date [...] encounter Miscellaneous Notes * Telephone Encounter - Fatou Person MED ASSIST - 06/02/2024 3:11 PM EDT Med List, H&P, Demographics and Last OV note faxed to [facility] as well. Confirmation received. * Telephone Encounter - Alva Barney LPN - 06/02/2024 2:50 PM EDT Med list, H and P, Demographic, last office note Fax is [phone] Faxed with confirmed receipt. * Telephone Encounter - Fatou Person MED ASSIST - 06/02/2024 2:48 PM EDT Attempted to call Heavenly from [facility]. Not available. Left number to call back. Please inform that hospice referral has been faxed to number provided successfully. Confirmation received. Ask if anything else is needed as well. * Telephone Encounter - Lluvia Wayne OSA - 06/02/2024 10:42 AM EDT Heavenly from [facility] following up on referral. [phone] * Telephone Encounter - Lalita Ybarra OSA - 06/01/2024 11:11 AM EDT Heavenly from [facility] is requesting referral to be faxed to [phone] [facility]. She stated the patient's has been calling them to check on the status of services for Sintia and they cannot proceed without the referral. * Telephone Encounter - Sophia Madison MD - 05/28/2024 12:04 PM EDT Referral done, pl fax * Telephone Encounter - Marilia Barba OSA - 05/28/2024 11:11 AM EDT Pt (aiden ) requesting hospice and the office of aging is requesting as well. Pt is declining in health * Telephone Encounter - Sophia Madison MD - 05/27/2024 3:27 PM EDT What is the reason for hospice referral request from family * Telephone Encounter - Lala Turner LPN - 05/27/2024 1:46 PM EDT Received a call from Heavenly with [facility] stating they were contacted by patient and family who are requesting hospice services. Before [facility] can enroll patient they need the hospice order, demographic sheet, H&P, med list and most recent office visit note faxed to them at [phone]. documented in this encounter Plan of Treatment Upcoming Encounters Date Type Department Care Team (Late st Contact Info) Description 06/18/2024 3:40 PM EST Office Visit Neurology [facility] [place] [address] [place] [address] Loren Rudolph MD [address] [facility] [place] [address] 11/05/2024 2:00 PM EDT Office Visit General Internal Medicine [facility] [place] [address] [facility] [place] [address] Kiki Hay MD [address] [facility] [place] [address] Scheduled Procedures Name Priority Associated Diagnoses Date/Ti me COLONOSCOPY FLEXIBLE PROXIMA L DIAGNOSTIC Recall Encounter for screening colonoscopy Scheduled Referrals Name Type Priority Associated Diagnoses Orde r Schedule HOSPICE REFERRAL OP Referral Within 3 day s (urgent) EPILEPSY;NONCONV,W/O INTRACTABLE Cognitive change JUSTIN (generalized anxiety disorder) Cognitive decline Recurrent falls 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 FORREST (obstructive sleep apnea) Acquired hypothyroidism History of pulmonary embolism Ordered: 05/28/2024 Health Maintenance Due Date Last Done Comments [...] this encounter Medical Devices Implanted Type Area Jig Box Operator Device Identifier Shelf Expiration Date Model / Serial / Lot Envista Hydrophobic Acrylic Intraocular Lens Implanted:Qty: 1 on 04/10/2022 by Gregory Nagel DO at OR [facility] Left: Eye [employer] 12/09/2023 [id number] / [id number] / [id number] Envista Intraocular Lens Implanted:Qty: 1 on 06/05/2022 by Gregory Nagel DO at OR [facility] Right: Eye [employer] 07/10/2024 [id number] / [id number] / [id number] documented as of this encounter Visit Diagnoses Diagnosis Cognitive decline- Primary Unspecified persistent mental disorders due to conditions classified elsewhere EPILEPSY;NONCONV,W/O INTRACTABLE Generalized nonconvulsive epilepsy without mention of intractable epilepsy Cognitive change Other signs and symptoms involving cognition JUSTIN (generalized anxiety disorder) Generalized anxiety disorder Recurrent falls Personal history of fall 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
--- OUTSIDE RECORDS SUMMARY | 2024-07-18 21:51 | External Medical Summary | Summary of Care ---
Author Name Unknown Organization [facility] Address [address] [place] [address] Phone [phone] Care Team Providers Care General Service Officer Name Role Phone Kiki Hay MD Primary Care Provider [phone] Reason for Referral * Evaluate & Treat - Unlimited Visits (Within 30 days (routine)) - Authorized Specialty Diagnoses / Procedures Referred By Contcesario t Referred To Contact Physical Therapy / Physical Medicine And Rehab Diagnoses Generalized weakness Kiki Hay MD [address] [facility] [place] [address] Referral ID Status Reason Start Date Expiration Date Visits Requested Visits Authorized [id number] Authorized Specialty Services Required 04/30/[phone] Question Answer Referral Priority Within 30 days (routine) Where [facility] this appointment be scheduled? [facility] Comments Generalized weakness and recurrent falls Reason for Visit * Reason Onset Date Comments Follow Up Medication Administration 04/30/2024 Flu an d/or Pneumo Inj Encounter Details Date Type Department Care Team (Late st Contact Info) Description 04/30/2024 2:00 PM EDT Office Visit General Internal Medicine [place] [facility] [address] [facility] [place] [address] Kiki Hay MD [address] [facility] [place] [address] Coronary artery disease involving [place] coronary artery of [place] heart without angina pectoris*; FORREST (obstructive sleep apnea); Acquired hypothyroidism; History of pulmonary embolism; History of nonmelanoma skin cancer; History of DVT (deep vein thrombosis); JUSTIN (generalized anxiety disorder); EPILEPSY;NONCONV,W/O INTRACTABLE; DIVERTICULOSIS OF COLON; Need for prophylactic vaccination and inoculation against influenza; Diastolic dysfunction; Lumbar degenerative disc disease; Cognitive change; History of compression fracture of spine; B12 deficiency; Syncope, unspecified syncope type; Non-toxic multinodular goiter; Venous insufficiency; Generalized weakness; Encounter for long-term (current) use of medications; Age related osteoporosis, unspecified pathological fracture presence; At risk for falls; Nocturnal hypoxemia Allergies Active Allergy Reactions Criticality Noted Date Comments Acetaminophen-Codeine Other (Please comment) 12/02/2013 Patient reports Tylenol #3 caused increased seizure activity Amoxicillin 04/20/1999 rash, nausea Codeine 07/26/2021 Other reaction(s): Unknown documented as of this encounter (statuses as of 05/10/2024) Medications Medication Sig Dispensed Refills Start Date End Date Status Acetaminophen 500 MG Oral Tablet Take 1 Tablet by mouth every 6 hours as needed for Pain. 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 [employer] Customer Number: [id number] 1 Each 1 05/21/2021 Active Multivitamin Adult Oral Tablet Take by mouth 1 Tablet daily . Active Calcium Citrate-Vitamin D 315-5 MG-MCG Oral Tablet Take 1 Tablet by mouth in the morning. Active B-12 1000 MCG Oral TabletIndications: B12 deficiency Take 1,000 mcg by mouth in the morning. 90 Tablet 3 09/27/2022 Active Cranberry 500 MG Oral Capsule Take 1 Capsule by mouth in the morning and 1 Capsule before bedtime. 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 10 Capsule 05/29/2023 Active Gabapentin 300 MG Oral Capsule (Neurontin)Indicat [...] in the morning. 10/14/2023 Active Benefiber Oral PowderIndications: Constipation, unspecified constipation [...] for Wheezing. 18 g 1 10/28/2023 Active Spacer/Aero-Holdin g Chambers DeviceIndications: Bronchitis due to COVID-19 virus Use with inhaler. 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 180 Tablet 1 03/03/2024 Active Sulfamethoxazole-T rimethoprim 800-160 MG Oral Tablet (Bactrim DS)Indications:Andreina pected UTI Take 1 Tablet by mouth in the morning and 1 Tablet before bedtime. 6 Tablet 02/24/2024 4 Discontinu ed(End of Procedure) documented as of this encounter (statuses as of 05/10/2024) Active Problems Problem Noted Date Diagnosed Date Cognitive change 10/26/2022 At risk for falls 10/26/2022 JUSTIN (generalized anxiety disorder) 10/26/2022 Coronary artery disease invo lving [place] coronary artery of [place] heart without angina pectoris 12/15/2021 Diastolic dysfunction [...] as of this encounter (statuses as of 05/10/2024) Resolved Problems Problem Noted Date Diagnosed Date Resolved Date Closed wedge compression fra cture of T6 vertebra 05/27/2023 04/30/2024 Overview: T6 in 05/2023 Encounter for examination fo r normal comparison and control in clinical research program 10/12/2018 03/13/2020 Overview: DO NOT DELETE [facility] DETECT Study: Project # [id number], Political Reporter: Israel Acevedo, PhD. SUMMARY: Goal: Establish test [...] contact study staff at ; after hours Political Reporter via the [facility] wire winding machine operator . Please contact study team before resolving/deleting from patients problem list. Study phone number: [phone]. Diagnosis changed due to Research Module. Go to Snapshot for study details. Encounter for examination fo r normal comparison and control in clinical research program 10/12/2018 04/11/2022 Overview: DO NOT DELETE [facility] Study: Project # [id number], Political Reporter: Andi White, MS, MPH. SUMMARY: Goal: Establish [...] contact study staff at ; after hours Political Reporter via the [facility] wire winding machine operator . - Please contact study team before resolving/deleting from patients problem list. Study phone number: [phone]. Diagnosis changed due to Research Module. Go [...] 09/06/2009 09/03/2017 Overview: Dr. Lawrence Dx per replaced by [facility] records. 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 Dermatophytosis of nail 05/24/2003 11/0 08/2010 documented as of this encounter (statuses as of 05/10/2024) Immunizations Name Administration Dates Next Due COVID-19 mRNA, LNP-s, No Pre serve, 2-Dose Series (Pfizer) 11/09/2020,10/19/2020 Pneumococcal Conjugate Vacc, 13 Valent (Prevnar) 02/26/2017 Pneumococcal Polysaccharide PPV23 (Pneumovax) 03/08/2019 Season Influenza, Quad, PF, Adjuvanted, 65+ Yrs, IM (FLUAD) 04/26/2020 Seasonal Influenza, High Dos e, Trivalent, PF, IM (Fluzone HD) 04/30/2024 Seasonal Influenza, PF, 6 M & above, IM , (FluLaval or Fluzone) 09/07/2018,05/06/2017 Seasonal Influenza, Quadriva lent Hd (Fluzone Hd) 05/08/2023,05/07/2022,11/08/2021,08/01 Seasonal Influenza, Quadriva lent Hd, 65+ Yrs 11/02/2021 Seasonal Influenza, Quadriva lent, No Preserve, IM 04/30/2016,05/26/2015 Seasonal Influenza, Trivalen t, (IIV3), with Preserv, (Fluzone) 05/20/2014,05/03/2013,05/01/2012,05/01 TD, Preservative Free 08/11/1990 TDAP (age 10 and older)(Boostrix) 02/28/2021 TDAP, Age 7 and older, IM (Adacel) 03/28/2008 Varicella Zoster Vaccine (Adult) 05/01/2012 Zoster Vaccine Recombinant (Shingrix) 04/28/2020 ,01/30/2020 documented as of this encounter Social History Tobacco Use Types Packs/Day Years Used Date Smoking Tobacco: Never Smokeless Tobacco: Never Tobacco Cessation:Counseling Given: No Alcohol Use Standard Drinks/Week Comments No 0 [...] Sign Reading Time Taken Comments Blood Pressure 108/70 04/30/2024 1:48 PM EDT Pulse 83 04/30/2024 1:48 PM EDT Temperature 36.4 C (97.6 F) 04/30/2024 1:48 PM ED T Respiratory Rate 16 04/30/2024 1:48 PM EDT Oxygen Saturation 90% 04/30/2024 1:48 PM EDT Inhaled Oxygen Concentration - - Weight 91.2 kg (201 lb 1.6 oz) 04/30/2024 1:48 P M EDT Height - - Body Mass Index 35.62 05/27/2023 3:20 AM EDT documented in this [...] Progress Notes * Kiki Hay MD - 04/30/2024 2:10 PM EDT Images from the original note were not included. History of Present Illness Sintia Shah is a 73 year old female that presents for Follow Up and Medication Administration (Flu and/or Pneumo Inj) 73 year oldYOfemale with PMH significant for DVT, PE , FORREST on c-pap, epilepsy , neuropathy ( not clear reason ) presents here for recheck. Acute concern :- -sessions with home physical therapy is over and asking for 1 today to go outside Interimmedical history : Patient was in the emergency twice and admitted to hospital once since last seen-mostly due to fall and or UTI. No fractures Watching diet and exercise : Working with physical therapy but not doing much by herself Routine labs : Due Routine HM : Agreeable to catch up except COVID booster Chronic medical problem: reviewed and stable Physical Exam Vitals: 04/30/24 1348 Temp: 36.4 C (97.6 F) Pulse: 83 Resp: 16 SpO2: 90% BP: 108/70 Physical Exam Vitals and nursing note reviewed. Constitutional: General: She is not in acute distress. Appearance: She is normal weight. HENT: Head: Normocephalic. Cardiovascular: Rate and Rhythm: Normal rate and regular rhythm. Pulmonary: Effort: Pulmonary effort is normal. No respiratory distress. Breath sounds: No wheezing. Abdominal: General: Bowel sounds are normal. There is no distension. Palpations: Abdomen is soft. There is no mass. Musculoskeletal: General: No swelling, tenderness or signs of injury. Cervical back: Neck supple. No rigidity. Right lower leg: Edema present. Left lower leg: Edema present. Comments: Trace edema Skin: General: Skin is warm. Findings: No lesion or rash. Neurological: Mental Status: She is alert. I have reviewed the following results: Assessment and Plan Coronary artery disease involving [place] coronary artery of [place] heart without angina pectoris Declined statins in past On aspirin FORREST (obstructive sleep apnea) Declines CPAP machine her to re-consider Acquired hypothyroidism Await current treatment and plan until lab result comes back - TSH; Future History of pulmonary embolism History of nonmelanoma skin cancer History of DVT (deep vein thrombosis) JUSTIN (generalized anxiety disorder) EPILEPSY;NONCONV,W/O INTRACTABLE Stable Continue current treatment as directed by Neurology- needs follow-up DIVERTICULOSIS OF COLON Need for prophylactic vaccination and inoculation against influenza - INFLUENZA VAC., TRIVALENT, HD, PF, 65 AND ABOVE, 0.5 ML IM (FLUZONE HD) Diastolic dysfunction Lumbar degenerative disc disease Stable Continue current treatment as directed Cognitive change History of compression fracture of spine B12 deficiency - VITAMIN B12; Future Syncope, unspecified syncope type Non-toxic multinodular goiter Venous insufficiency Generalized weakness - PHYSICAL THERAPY REFERRAL OP Encounter for long-term (current) use of medications - COMPREHENSIVE METABOLIC PANEL; Future - CBC; Future Age related osteoporosis, unspecified pathological fracture presence - 25-HYDROXY VITAMIN D; Future At risk for falls Nocturnal hypoxemia Wrap-Up Time: I spent a total of 30-39 minutes (exact time 36 mins) on the date of service in preparation, delivery, and documentation of the care provided to Sintia Shah excluding any time spent in the performanceof separately billed services. * Jannette Cohn MED ASSIST - 04/30/2024 1:57 PM EDT PRE - ADMINISTRATION DOCUMENTATION Are you experiencing any cold symptoms or fever? No Have you had Guillain-[place] Syndrome (an illness that causes paralysis) within the last 6 weeks? No Have you had the flu shot in the past? YES Have you ever had a reaction to the flu shot? No NIA Nance, 04/30/2024 1:57 PM Immunization Administration Documentation Time Out Procedure Performed: Yes Patient Identified (Ask Name/Date of ): Yes Does the patient have a fever greater than 101 degrees today? No Patient allergic to latex? No VFC Stock: No Immunization(s) verified: Yes, Immunization Name: Flu, VIS Sheet(s) given: Yes Verified Side and Site: Yes Verified Shot(s) with Parent(s)/Patient: Yes documented in this encounter Nursing Notes * Jannette Cohn MED ASSIST - 04/30/2024 1:47 PM EDT Sintia Shah presents for 6 month recheck. They are requesting a referral for PT. Medications & HM reviewed. documented in this encounter Plan of Treatment Upcoming Encounters Date Type Department Care Team (Late st Contact Info) Description 11/05/2024 2:00 PM EDT Office Visit General Internal Medicine State Cecilia Mchugh [address] [place] [address] Kiki Hay MD [address] [facility] [place] [id number] Scheduled Procedures Name Priority Associated Diagnoses Date/Ti me COLONOSCOPY FLEXIBLE PROXIMA L DIAGNOSTIC Recall Encounter for screening colonoscopy Scheduled Referrals Name Type Priority Associated Diagnoses Orde r Schedule PHYSICAL THERAPY REFERRAL OP Referral Within 30 days (routine) Generalized weakness Ordered: 04/30/2024 Health Maintenance Due Date Last Done Comments [...] this encounter Medical Devices Implanted Type Area Chainer Device Identifier Shelf Expiration Date Model / Serial / Lot Envista Hydrophobic Acrylic Intraocular Lens Implanted:Qty: 1 on 04/10/2022 by Gregory Nagel DO at OR [facility] Left: Eye [employer] 12/09/2023 [id number] / [id number] / [id number] Envista Intraocular Lens Implanted:Qty: 1 on 06/05/2022 by Gregory Nagel DO at OR [facility] Right: Eye [employer] 07/10/2024 [id number] / [id number] / [id number] documented as of this encounter Results * VITAMIN B12 (04/30/2024 2:44 PM EDT) Vitamin B12 748 232 - 1,245 pg/mL 05/01/2024 12:48 AM EDT [facility] Blood Venous blood specimen / Unknown Venipuncture / Unknown 04/30/2024 2:44 PM EDT 04/30/2024 2:45 PM EDT Kiki Hay MD LAB BLOOD ORDERABLES LAB[facility]ATORY [facility] [address] [place] [address] * 25-HYDROXY VITAMIN D (04/30/2024 2:44 PM EDT) 25-Hydroxy Vitamin D 20 >19 ng/mL 05/01/2024 12:48 AM EDT [facility] Blood Venous blood specimen / Unknown Venipuncture / Unknown 04/30/2024 2:44 PM EDT 04/30/2024 2:45 PM EDT Narrative [facility] - 05/01/2024 12:48 AM EDT Deficient: <20 ng/mL Insufficient: 20-29 ng/mL Recommended/Optimum:30-50 ng/mL Vitamin D intoxication is rare. If suspicious of Vitamin D toxicity, evaluation of serum Calcium and PTH is recommended. Kiki Hay MD LAB BLOOD ORDERABLES LAB[facility]ATORY [facility] [address] [place] [address] * TSH (04/30/2024 2:44 PM EDT) Pathologist [facility] TSH 2.25 0.27 - 4.20 uIU/mL 05/01/2024 12:48 AM EDT [facility]ORY [facility] Blood Venous blood specimen / Unknown Venipuncture / Unknown 04/30/2024 2:44 PM EDT 04/30/2024 2:45 PM EDT Kiki Hay MD LAB BLOOD ORDERABLES LAB[facility]ATORY [facility] [address] [place] [address] * CBC (04/30/2024 2:44 PM EDT) Pathologist [facility] WBC 8.39 4.00 - 10.80 K/uL 04/30/2024 3:08 PM EDT [address] RBC 4.32 3.85 - 5.15 M/uL 04/30/2024 3:08 PM EDT [address] HGB 14.2 12.0 - 15.3 g/dL 04/30/2024 3:08 PM EDT [address] HCT 41.7 36.0 - 45.2 % 04/30/2024 3:08 PM EDT [address] MCV 96.5 81.5 - 97.5 fL 04/30/2024 3:08 PM EDT [address] MCH 32.9 27.0 - 34.0 pg 04/30/2024 3:08 PM EDT [facility] 56 MCHC 34.1 32.0 - 36.0 g/dL 04/30/2024 3:08 PM EDT [facility] 56 RDW 13.3 11.5 - 15.5 % 04/30/2024 3:08 PM EDT [facility] 56 PLT 263 140 - 400 K/uL 04/30/2024 3:08 PM EDT [facility] 56 MPV 9.8 6.6 - 11.1 fL 04/30/2024 3:08 PM EDT [facility] 56 Blood Venous blood specimen / Unknown Venipuncture / Unknown 04/30/2024 2:44 PM EDT 04/30/2024 2:45 PM EDT Kiki Hay MD LAB BLOOD ORDERABLES [address] [place] [address] * (ABNORMAL) COMPREHENSIVE METABOLIC PANEL (04/30/2024 2:44 PM EDT) BUN 10 6 - 20 mg/dL 04/30/2024 3:51 PM EDT [address] CREATININE 0.5 0.5 - 1.0 mg/dL 04/30/2024 3:51 PM [address]T [address] EGFR >90 >=60 mL/min 04/30/2024 3:51 PM EDT [facility] 56 Comment:eGFR is calculated b ased on the CKD-EPI 2020 equation. SODIUM 136 135 - 146 mmol/L 04/30/2024 3:51 PM EDT [facility] 56 POTASSIUM 4.3 3.5 - 5.1 mmol/L 04/30/2024 3:51 PM EDT [facility] 56 CHLORIDE 100 98 - 107 mmol/L 04/30/2024 3:51 PM EDT [facility] 56 CO2 25 22 - 32 mmol/L 04/30/2024 3:51 PM EDT [facility] 56 ANION GAP 11 7 - 15 mmol/L 04/30/2024 3:51 PM EDT [facility] 56 GLUCOSE 105 70 - 120 mg/dL 04/30/2024 3:51 PM EDT [facility] 56 Albumin 3.9 3.8 - 5.0 g/dL 04/30/2024 3:51 PM EDT [facility] 56 AST 11 10 - 35 U/L 04/30/2024 3:51 PM EDT [facility] 56 Alkaline Phosphatase 68 35 - 130 U/L 04/30/2024 3:51 PM EDT [facility] Bilirubin, Total 0.3 <=1.2 mg/dL 04/30/2024 3:51 PM EDT [facility] 56 CALCIUM 9.6 8.4 - 10.2 mg/dL 04/30/2024 3:51 PM EDT [facility] 56 Protein 6.9 6.0 - 8.3 g/dL 04/30/2024 3:51 PM EDT [facility] ALT 9(L) 10 - 35 U/L 04/30/2024 3:51 PM EDT [facility] 56 Blood Venous blood specimen / Unknown Venipuncture / Unknown 04/30/2024 2:44 PM EDT 04/30/2024 2:45 PM EDT Kiki Hay MD LAB BLOOD ORDERABLES Performing Organization Address City/State/[facility] Co de Phone Number [facility] [address] [place], [place] [id number] documented in this encounter Visit Diagnoses Diagnosis Coronary artery disease involving [place] coronary artery of [place] heart without angina pectoris- Primary FORREST (obstructive sleep apnea) Obstructive sleep apnea (adult) (pediatric) Acquired hypothyroidism Unspecified hypothyroidism History of pulmonary embolism Personal history of pulmonary embolism History of nonmelanoma skin cancer Personal history of other malignant neoplasm of skin History of DVT (deep vein thrombosis) Personal history of venous thrombosis and embolism JUSTIN (generalized anxiety disorder) Generalized anxiety disorder EPILEPSY;NONCONV,W/O INTRACTABLE Generalized nonconvulsive epilepsy without mention of intractable epilepsy DIVERTICULOSIS OF COLON Diverticulosis of colon (without mention of hemorrhage) Need for prophylactic vaccination and inoculation against influenza Diastolic dysfunction Heart disease, unspecified Lumbar degenerative disc disease Degeneration of lumbar or lumbosacral intervertebral disc Cognitive change Other signs and symptoms involving cognition History of compression fracture of spine Personal history of traumatic fracture B12 deficiency Other B-complex deficiencies Syncope, unspecified syncope type Non-toxic multinodular goiter Nontoxic multinodular goiter Venous insufficiency Unspecified venous (peripheral) insufficiency Generalized weakness Other malaise and fatigue Encounter for long-term (current) use of medications Encounter for long-term (current) use of other medications Age related osteoporosis, unspecified pathological fracture presence At risk for falls Personal history of fall Nocturnal hypoxemia Hypoxemia documented in this encounter Advance Directives * [...] Directives occurred with: Not Discussed Care Teams General Service Officer Relationship Specialty Start Date End Date Kiki Hay MD [address] [facility] [address] PCP - General Internal Medicine 07/29/21 documented as of this encounter
--- OUTSIDE RECORDS SUMMARY | 2024-07-18 21:51 | External Medical Summary | Summary of Care ---
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 [facility] Reason for Visit * Reason Onset Date Comments Order Request 05/27/2024 Hospice Encounter Details Date Type Department Care Team (Late st Contact Info) Description 05/27/2024 Telephone General Internal Medicine [employer] [address] [facility] [address] Kiki Hay MD [address] [facility] [place] [address] Order Request (Hospice) Allergies Active Allergy Reactions [...] Active MEDICAL INSTRUCTIONS Stairlift needed for Sintia Sahh, 1950. [place] Customer Number: [phone] 1 Each 1 05/21/2021 Active Multivitamin Adult [...] disorder) 10/26/2022 Coronary artery disease invo lving [place] coronary artery of [place] heart without angina pectoris 12/15/2021 Diastolic [...] 10/12/2018 03/13/2020 Overview: DO NOT DELETE [facility] DETECT Study: Project # [id number], Motor And Controls Tester: Israel Acevedo, PhD. SUMMARY: Goal: Establish test [...] contact study staff at ; after hours Motor And Controls Tester via the [facility] hospital heavy machinery operator . Please contact study team before resolving/deleting from patients problem list. Study phone number: [phone]. Diagnosis changed due to Research Module. Go to Snapshot for study details. Encounter for examination fo r normal comparison and control in clinical research program 10/12/2018 04/11/2022 Overview: DO NOT DELETE - [employer] DETECT Study: Project # [id number], Motor And Controls Tester: Andi White, MS, MPH. SUMMARY: Goal: Establish [...] contact study staff at ; after hours Motor And Controls Tester via the [facility] hospital heavy machinery operator . - Please contact study team before resolving/deleting from patients problem list. Study phone number: [phone]. Diagnosis changed due to Research Module. Go [...] 09/06/2009 09/03/2017 Overview: Dr. Lawrence Dx per [facility] records. Feels she had psychosis [...] mRNA, LNP-s, No Pre serve, 2-Dose Series (Biocartis) 11/09/2020,10/19/2020 Pneumococcal Conjugate Vacc, 13 Valent (Prevnar) [...] No 10/31/2023 Does the household have a [facility] source of income? (Household - for ages [...] Demographics and Last OV note faxed to [facility] as well. Confirmation received. * Telephone Encounter - Alva Barney LPN - 06/02/2024 2:50 PM EDT Med list, H and P, Demographic, last office note Fax is [phone] * Telephone Encounter - Fatou Person MED ASSIST - 06/02/2024 2:48 PM EDT Attempted to call Heavenly from [facility]. Not available. Left number to call back. Please inform that hospice referral has been faxed to number provided successfully. Confirmation received. Ask if anything else is needed as well. * Telephone Encounter - Lluvia Wayne OSA - 06/02/2024 10:42 AM EDT Heavenly from [facility] following up on referral. [phone] * Telephone Encounter - Lalita Ybarra OSA - 06/01/2024 11:11 AM EDT Heavenly from [facility] is requesting referral to be faxed to [phone] [facility]. She stated the patient's has [...] EDT Received a call from Heavenly with [facility] stating they were contacted by patient and family who are requesting hospice services. Before [facility] can enroll patient they need the hospice order, demographic sheet, H&P, med list and most recent office visit note faxed to them at [phone]. documented in this encounter Plan of Treatment Upcoming Encounters Date Type Department Care Team (Late st Contact Info) Description 06/18/2024 3:40 PM EST Office Visit Neurology [facility] [place] [address] [place] [address] Loren Rudolph MD [address] [place] [address] 11/05/2024 2:00 PM EDT Office Visit General Internal Medicine [facility] [address] [facility] [place] [address] Kiki Hay MD [address] [facility] [place] [address] Scheduled Procedures Name Priority Associated Diagnoses Date/Ti me COLONOSCOPY FLEXIBLE PROXIMA L DIAGNOSTIC Recall Encounter for screening colonoscopy Scheduled Referrals Name Type Priority Associated Diagnoses Orde r Schedule HOSPICE REFERRAL OP Referral Within 3 day s (urgent) EPILEPSY;NONCONV,W/O INTRACTABLE Cognitive change JUSTIN (generalized anxiety disorder) Cognitive decline Recurrent falls Coronary artery disease involving [place] coronary artery of [place] heart without angina pectoris FORREST (obstructive sleep [...] this encounter Medical Devices Implanted Type Area Anesthesiology Teacher Device Identifier Shelf Expiration Date Model / Serial / Lot Envista Hydrophobic Acrylic Intraocular Lens Implanted:Qty: 1 on 04/10/2022 by Gregory Nagel DO at OR [facility] Left: Eye [employer] 12/09/2023 [id number] / [id number] / [id number] Envista Intraocular Lens Implanted:Qty: 1 on 06/05/2022 by Gregory Nagel DO at OR [facility] Right: Eye [employer]USCH [employer] LOMB 07/10/2024 [id number] / [id number] / [id number] documented as of this encounter Visit Diagnoses Diagnosis Cognitive decline- Primary Unspecified persistent mental disorders due to conditions classified elsewhere EPILEPSY;NONCONV,W/O INTRACTABLE Generalized nonconvulsive epilepsy without mention of intractable epilepsy Cognitive change Other signs and symptoms involving cognition JUSTIN (generalized anxiety disorder) Generalized anxiety disorder Recurrent falls Personal history of fall Coronary artery disease involving [place] coronary artery of [place] heart without angina pectoris FORREST (obstructive sleep [...] Directives occurred with: Not Discussed Care Teams Rn Coronary Care Unit Relationship Specialty Start Date End Date Kiki Hay MD [address] [facility] [address] PCP - General Internal Medicine 07/29/21 documented as of this encounter
--- OUTSIDE RECORDS SUMMARY | 2024-07-18 21:51 | External Medical Summary | Summary of Care ---
Author Name Unknown Organization [facility] Address [address] [place] [address] Phone [phone] Care Team Providers Care Jazz Musician Name Role Phone Kiki Hay MD Primary Care Provider [phone] Reason for Visit * Reason Comments eRx-Medication Refill Encounter Details Date Type Department Care Team (Late st Contact Info) Description 05/25/2024 Refill Neurology [facility] [place] [address] [place] [address] Loren Price PA-C [address] [facility] [place] [address] EPILEPSY;NONCONV,W/O INTRACTABLE Allergies Active Allergy Reactions Criticality Noted Date Comments Acetaminophen-Codeine Other (Please comment) 12/02/2013 Patient reports Tylenol #3 caused increased seizure activity Amoxicillin 04/20/1999 rash, nausea Codeine 07/26/2021 Other reaction(s): Unknown documented as of this encounter (statuses as of 05/27/2024) Medications Medication Sig Dispensed Refills Start Date End Date Status Acetaminophen 500 MG Oral Tablet Take 1 Tablet by mouth every 6 hours as needed for Pain. Active MEDICAL INSTRUCTIONS Stairlift needed for Sintia LEONARDO Shah 1950. [place] Customer Number: [id number] 1 Each 1 Active Multivitamin Adult Oral [...] 1 Tablet by mouth in the morning. 3 Active Alendronate Sodium 70 MG Oral [...] into nostril in the morning. 4 Active Benefiber Oral PowderIndications: Constipation, unspecified constipation type Take 1 Tbsf in a glass of water daily 4 Active Aspirin 81 MG Oral Tablet Delayed Release Take 1 Tablet by mouth in the morning. 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) TAKE 3 TABLETS BY MOUTH TWICE DAILY 540 Tablet 4 05/27/20 24 Discontinued documented as of this encounter (statuses as of 05/27/2024) Active Problems Problem Noted Date Diagnosed Date Cognitive change 10/26/2022 At risk for falls 10/26/2022 JUSTIN (generalized anxiety disorder) 10/26/2022 Coronary artery disease invo lving hughes coronary artery of hughes heart without angina pectoris 12/15/2021 Diastolic dysfunction [...] as of this encounter (statuses as of 05/27/2024) Resolved Problems Problem Noted Date Diagnosed Date Resolved Date Closed wedge compression fra cture of T6 vertebra 05/27/2023 04/30/2024 Overview: T6 in 05/2023 Encounter for examination fo r normal comparison and control in clinical research program 10/12/2018 03/13/2020 Overview: DO NOT DELETE [employer] [facility] Study: Project # [id number], Medical Laboratory Specialist: Israel Acevedo, PhD. SUMMARY: Goal: Establish test [...] contact study staff at ; after hours Medical Laboratory Specialist via the [facility] instant print operator . Please contact study team before resolving/deleting from patients problem list. Study phone number: [phone]. Diagnosis changed due to Research Module. Go to Snapshot for study details. Encounter for examination fo r normal comparison and control in clinical research program 10/12/2018 04/11/2022 Overview: DO NOT DELETE - [employer] DETECT Study: Project # [id number], Medical Laboratory Specialist: Andi White, MS, MPH. SUMMARY: Goal: Establish [...] contact study staff at ; after hours Medical Laboratory Specialist via the [facility] instant print operator . - Please contact study team before resolving/deleting from patients problem list. Study phone number: [phone]. Diagnosis changed due to Research Module. Go [...] 09/06/2009 09/03/2017 Overview: Dr. Lawrence Dx per [facility] records. 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 Dermatophytosis of nail 05/24/2003 11/0 08/2010 documented as of this encounter (statuses as of 05/27/2024) Immunizations Name Administration Dates Next Due COVID-19 [...] encounter Miscellaneous Notes * Telephone Encounter - Loren Price PA-C - 05/27/2024 12:02 PM EDT Signed Prescriptions: Disp Refills Divalproex Sodium ER 500 MG Oral Tablet Ex*180 Ta*0 Sig: TAKE 2 TABLETS BY MOUTH ONCE DAILY DO NOT CUT, CRUSH OR CHEW Authorizing Provider: LOREN PRICE * Telephone Encounter - Leisa Zuñiga CPhT - 05/27/2024 11:22 AM EDTPending Prescriptions: Disp Refills Divalproex Sodium ER 500 MG Oral Tablet Ex*180 Ta*0 Sig: TAKE 2 TABLETS BY MOUTH ONCE DAILY DO NOT CUT, CRUSH OR CHEW * Telephone Encounter - Leisa Zuñiga CPhT - 05/27/2024 11:13 AM EDT Received message from [facility] regarding patient needing an appointment. Call Placed to patient. Spoke to who agreed to make an appt. Transferred to scheduling. Thank you, Leisa Zuñiga CPhT Crisis Intervention Specialist [facility] ([facility]) 05/27/2024,11:13 AM * Telephone Encounter - Leonora Zapata [facility] - 05/27/2024 11:11 AM EDT Pending Prescriptions: Disp Refills Divalproex Sodium ER 500 MG Oral Tablet Ex*180 Ta*0 Sig: TAKE 2 TABLETS BY MOUTH ONCE DAILY DO NOT CUT, CRUSH OR CHEW * Telephone Encounter - Leonora Zapata [facility] - 05/27/2024 11:05 AM EDT Please contact patient so that an appointment can be scheduled with her NEUROLOGY provider before this refill can be authorized. After contacting patient, please forward request to Dr. Loren Rudolph MD. No show 04/16/24 Last Visit: 03/17/2023 (in office), 08/28/2021 (telemedicine) Next Visit: Visit date not found Labs are up to date. Thank you, Leonora Zapata, PharmD Clinical Pharmacist [facility] ([facility]) [phone] 05/27/2024, 11:07 AM documented in this encounter Plan of Treatment Upcoming Encounters Date Type Department Care Team (Late st Contact Info) Description 06/18/2024 3:40 PM EST Office Visit Neurology [place] [address] [place] [id number] Loren Rudolph MD [address] [place] [id number] 11/05/2024 2:00 PM EDT Office Visit General Internal Medicine [facility] [place] [address] [place] [id number] Kiki Hay MD [facility] [place] [address] [place] [id number] Scheduled Procedures Name Priority Associated Diagnoses Date/Ti [...] this encounter Medical Devices Implanted Type Area Senior Engineering Technician Device Identifier Shelf Expiration Date Model / Serial / Lot Envista Hydrophobic Acrylic Intraocular Lens Implanted:Qty: 1 on 04/10/2022 by Gregory Nagel DO at OR [facility] Left: Eye [employer] 12/09/2023 [id number] / [id number] / [id number] Envista Intraocular Lens Implanted:Qty: 1 on 06/05/2022 by Gregory Nagel DO at OR [facility] Right: Eye [employer]OM[employer] 07/10/2024 [id number] / [id number] / [id number] documented as of this encounter Visit Diagnoses Diagnosis EPILEPSY;NONCONV,W/O INTRACTABLE Generalized nonconvulsive epilepsy without mention [...] Directives occurred with: Not Discussed Care Teams Jazz Musician Relationship Specialty Start Date End Date Kiki Hay MD [address] [place] [place] [address] PCP - General Internal Medicine 07/29/21 documented as of this encounter
--- OUTSIDE RECORDS SUMMARY | 2024-07-18 21:51 | External Medical Summary ---
Author Name Unknown Address Unknown Organization K09:[facility] [place] [address] Laboratory Report Ordering Provider Test Date Status AMERICO COLUNGA 04/30/2024 14:44:30 Final Observation Date Value Abnormality Reference (Units ) Status WBC, Total 04/30/2024 14:44:30 8.39 4.00-10.8 0 (K/uL) Final RBC 04/30/2024 14:44:30 4.32 3.85-5.15 (M/uL) Final Hemoglobin 04/30/2024 14:44:30 14.2 12.0-15.3 (g/dL) Final HCT 04/30/2024 14:44:30 41.7 36.0-45.2 (%) Final MCV 04/30/2024 14:44:30 96.5 81.5-97.5 (fL) Final MCH 04/30/2024 14:44:30 32.9 27.0-34.0 (pg) Final MCHC 04/30/2024 14:44:30 34.1 32.0-36.0 (g/dL) Final RDW 04/30/2024 14:44:30 13.3 11.5-15.5 (%) Final Platelets 04/30/2024 14:44:30 263 140-400 (K /uL) Final MPV 04/30/2024 14:44:30 9.8 6.6-11.1 ( fL) Final Performing Location [facility] [place] [address]
--- OUTSIDE RECORDS SUMMARY | 2024-07-18 21:51 | External Medical Summary ---
Author Name Unknown Address Unknown Organization K01:[facility] - [address] [facility] [address] Laboratory Report Ordering Provider Test Date Status AMERICO COLUNGA 04/30/2024 14:44:30 Final Observation Date Value Abnormality Reference (Units ) Status TSH 04/30/2024 14:44:30 2.25 0.27-4.20 (uIU/mL) Final Performing Location [facility] - [address] [facility] [address]
--- OUTSIDE RECORDS SUMMARY | 2024-07-18 21:51 | External Medical Summary | Summary of Care ---
Author Name Unknown Organization [facility] Address [address] [place] [address] Phone [phone] Care Team Providers Care Airborne Weapons Technical Manager Name Role Phone Kiki Hay MD Primary Care Provider [phone] Reason for Visit * Reason Comments eRx-Medication Refill Encounter Details Date Type Department Care Team (Late st Contact Info) Description 05/25/2024 Refill Neurology [facility] [address] [facility] [place] [address] Loren Rudolph MD 200 [place] [address] EPILEPSY;NONCONV,W/O INTRACTABLE Allergies Active Allergy Reactions Criticality [...] Stairlift needed for Sintia LEONARDO Shah 1950. [place] Customer Number: [phone] 1 Each 1 Active Multivitamin Adult Oral [...] before bedtime. 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 SUMMARY: Goal: Establish test [...] contact study staff at ; after hours Woven Blind Loom Tender via the [facility] chucking machine set up operator . Please contact study team before resolving/deleting from patients problem list. Study phone number: [phone]. Diagnosis changed due to Research Module. Go to Snapshot for study details. Encounter for examination fo r normal comparison and control in clinical research program 10/12/2018 04/11/2022 Overview: DO NOT DELETE - [employer] DETECT Study: Project # [id number], Woven Blind Loom Tender: Andi White, MS, MPH. SUMMARY: Goal: Establish [...] contact study staff at ; after hours Woven Blind Loom Tender via the [facility] chucking machine set up operator . - Please contact study team before resolving/deleting from patients problem list. Study phone number: [phone]. Diagnosis changed due to Research Module. Go [...] Overview: Dr. Lawrence Dx per [facility] records. 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 Dermatophytosis of nail 05/24/200308/2010 documented as of this encounter (statuses as [...] 10/31/2023 Does the household have a re lar source of income? (Household - for ages [...] Miscellaneous Notes * Telephone Encounter - Loren Rudolph MD - 05/27/2024 12:05 PM EDTSigned Prescriptions: Disp Refills OXcarbazepine 150 MG Oral Tablet (Trilepta*540 Ta*0 Sig: TAKE 3 TABLETS BY MOUTH TWICE DAILY Authorizing Provider: LOREN RUDOLPH * Telephone Encounter - Leonora Zapata [facility] - 05/27/2024 11:14 AM EDT Pending Prescriptions: Disp Refills OXcarbazepine 150 MG Oral Tablet (Trilepta*540 Ta*0 Sig: TAKE 3 TABLETS BY MOUTH TWICE DAILY * Telephone Encounter - Leonora Zapata [facility] - 05/27/2024 11:11 AM EDT Unable to authorize medication refills for pended medication(s) at this time. Part of the protocol criteria used for refill authorization was not satisfied. Patient needs appt within the last year. Last visit was 03/17/23. No show 04/16/24. Pt being contacted to advise of appt needed in other refill encounter. Protocol labs are up to date. Please approve if appropriate. Thank you, Leonora Zapata, PharmD Clinical Pharmacist [facility] ([facility]) [phone] 05/27/2024, 11:12 AM documented in this encounter Plan of Treatment Upcoming Encounters Date Type Department Care Team (Late st Contact Info) Description 06/18/2024 3:40 PM EST Office Visit Neurology [address] [place] [address] Loren Rudolph MD [address] [facility] [place] [address] 11/05/2024 2:00 PM EDT Office Visit General Internal Medicine [facility] [address] [facility] [place] [address] Kiki Hay MD [address] [facility] [place] [address] Scheduled Procedures Name Priority Associated Diagnoses Date/Ti [...] this encounter Medical Devices Implanted Type Area Division Sergeant Device Identifier Shelf Expiration Date Model / Serial / Lot Envista Hydrophobic Acrylic Intraocular Lens Implanted:Qty: 1 on 04/10/2022 by Gregory Nagel DO at OR [facility] Left: Eye [employer]CH [employer] LOM[employer] 12/09/2023 [id number] / [id number] / [id number] Envista Intraocular Lens Implanted:Qty: 1 on 06/05/2022 by Gregory Nagel DO at OR [facility] Right: Eye BAUSCH [employer] LOMB 07/10/2024 [id number] / [id number] / [id number] documented as of this encounter Visit Diagnoses [...] Directives occurred with: Not Discussed Care Teams Airborne Weapons Technical Manager Relationship Specialty Start Date End Date Kiki Hay MD [address] [facility] [address] [place], [place] [address] PCP - General Internal Medicine 07/29/21 documented as of this encounter
--- OUTSIDE RECORDS SUMMARY | 2024-07-18 21:51 | External Medical Summary | Summary of Care ---
Author Name Unknown Organization [facility] Address [address] [place] [address] Phone [phone] Care Team Providers Care Business Services Sales Representative Name Role Phone Kiki Hay MD Primary Care Provider [phone] Reason for Visit * Reason Comments Outpatient Testing Encounter Details Date Type Department Care Team (Late st Contact Info) Description 04/30/2024 2:40 PM EDT Laboratory Laboratory [facility] [place] [address] [place] [address] [facility] [address] [facility] [place] [address] Encounter for long-term (current) use of medications; Acquired hypothyroidism; Age related osteoporosis, unspecified pathological fracture presence; B12 deficiency Allergies Active Allergy Reactions Criticality Noted Date Comments Acetaminophen-Codeine Other (Please comment) 12/02/2013 Patient reports Tylenol #3 caused increased seizure activity Amoxicillin 04/20/1999 rash, nausea Codeine 07/26/2021 Other reaction(s): Unknown documented as of this encounter (statuses as of 04/30/2024) Medications Medication Sig Dispensed Refills Start Date End Date Status Acetaminophen 500 MG Oral Tablet Take 1 Tablet by mouth every 6 hours as needed for Pain. 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 [place] Customer Number: [id number] 1 Each 1 05/21/2021 Active Multivitamin Adult [...] 10/28/2023 Active OXcarbazepine 150 MG Oral Tablet (Trileptal)Indicati [...] before bedtime. 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 SUMMARY: Goal: Establish test [...] contact study staff at ; after hours Stoneworking Sander via the [facility] hospital control area operator . Please contact study team before resolving/deleting from patients problem list. Study phone number: [phone]. Diagnosis changed due to Research Module. Go to [employer] for study details. Encounter for examination fo r normal comparison and control in clinical research program 10/12/2018 04/11/2022 Overview: DO NOT DELETE - [facility] Study: Project # [id number], Stoneworking Sander: Andi White, MS, MPH. SUMMARY: Goal: Establish [...] contact study staff at ; after hours Stoneworking Sander via the [facility] hospital control area operator . - Please contact study team before resolving/deleting from patients problem list. Study phone number: [phone]. Diagnosis changed due to Research Module. Go to [employer] for study details. Body mass index (BMI) [...] as of this encounter (statuses as of 04/30/2024) Immunizations Name Administration Dates Next Due COVID-19 [...] State Cecilia Mchugh [address] [place] [id number] Kiki Hay MD [address] [place] [id number] Pending Results Name Type Priority Associated Diagnoses Date /Time COMPREHENSIVE METABOLIC PANEL Lab Routine Encounter for long-term (current) use of medications 04/30/2024 2:44 PM EDT CBC Lab Routine Encounter for long-term (current) use of medications 04/30/2024 2:44 PM EDT TSH Lab Routine Acquired hypothyroidism 04/30/2024 2:44 PM EDT 25-HYDROXY VITAMIN D Lab Routine Age related osteoporosis, unspecified pathological fracture presence 04/30/2024 2:44 PM EDT VITAMIN B12 Lab Routine B12 deficiency 04/30/2024 2:44 PM EDT Scheduled Procedures Name Priority Associated Diagnoses Date/Ti me COLONOSCOPY FLEXIBLE PROXIMA L DIAGNOSTIC Recall Encounter for screening colonoscopy Health Maintenance Due Date Last Done Comments Cologuard 10/16/1996 Fecal Occult Blood Test 10/16/1996 Sigmoidoscopy 10/16/1996 Adult Wellness Visit 02/09/2022 02/09/2021 COVID-19 Vaccine ( season) 2024 11/09/2020, 10/19/2020 Postponed from 04/11/2024 (Unavailable) TSH 06/04/2024 06/04/2023, 04/12, 02/05/2023, Additional history exists Mammogram 07/15/2024 07/15/2023, 12/2022, 05/24/2022, Additional history exists Depression Screening 04/30/2025 04/30/2024 Colonoscopy 06/02/2028 06/02/2018, 05/30/2008 Colorectal Cancer Screening 06/02/2028 DXA Scan 05/20/2030 05/20/2023, 05/11, 03/04/2017, Additional history exists DTap/Tdap Vaccines (3 - Td or Tdap) 02/28/2031 02/28/2021, 03/28/2008, 08/11/1990, Additional history exists Pneumococcal Vaccine: 65+ Years Completed 03/08/2019, 02/26/2017 Zoster Vaccines Completed 04/28/2020, 01/10, 05/01/2012 Influenza Vaccine (FLU shot) Completed 04/30/2024, 05/08/2023, 05/07/2022, Additional history exists HPV (Gardasil) [...] this encounter Medical Devices Implanted Type Area Circulation Representative Device Identifier Shelf Expiration Date Model / Serial / Lot Envista Hydrophobic Acrylic Intraocular Lens Implanted:Qty: 1 on 04/10/2022 by Gregory Nagel DO at OR [facility] Left: Eye [employer] 12/09/2023 [id number] / [id number] / [id number] Envista Intraocular Lens Implanted:Qty: 1 on 06/05/2022 by Gregory Nagel DO at OR [facility] Right: Eye [employer]OM[employer] 07/10/2024 [id number] / [id number] / [id number] documented as of this encounter Visit Diagnoses Diagnosis Encounter for long-term (current) use of medications Encounter for long-term (current) use of other medications Acquired hypothyroidism Unspecified hypothyroidism Age related osteoporosis, unspecified pathological fracture presence B12 deficiency Other B-complex deficiencies documented in this encounter Advance Directives * [...] Directives occurred with: Not Discussed Care Teams Business Services Sales Representative Relationship Specialty Start Date End Date Kiki Hay MD [address] [facility] [place] [address] PCP - General Internal Medicine 07/29/21 documented as of this encounter
--- OUTSIDE RECORDS SUMMARY | 2024-07-18 21:52 | External Medical Summary | Summary of Care ---
Author Name Unknown Organization [facility] Address [address] [place] [address] Phone [phone] Care Team Providers Care Wood Shop Teacher Name Role Phone Kiki Hay MD Primary Care Provider [phone] Reason for Visit * Reason Onset Date Comments Advice 12/25/2023 Home Health 12/25/2023 Encounter Details Date Type Department Care Team (Late st Contact Info) Description 12/25/2023 Telephone General Internal Medicine [facility] [address] [facility] [place] [address] Kiki Hay MD [address] [facility] [place] [address] Advice; Home Health Allergies Active Allergy Reactions Criticality Noted Date Comments Acetaminophen-Codeine Other (Please comment) 12/02/2013 Patient reports Tylenol #3 caused increased seizure activity Amoxicillin 04/20/1999 rash, nausea Codeine 07/26/2021 Other reaction(s): Unknown documented as of this encounter (statuses as of 03/25/2024) Medications Medication Sig Dispensed Refills Start Date End Date Status Acetaminophen 500 MG Oral Tablet Take 1 Tablet by mouth every 6 hours as needed for Pain. Active MEDICAL INSTRUCTIONS Stairlift needed for Sintia LEONARDO Shah 1950. [place] Customer Number: [id number] 1 Each 1 05/21/2021 Active Multivitamin Adult [...] Use with inhaler. 1 Each 10/28/2023 Active documented as of this encounter (statuses as of 03/25/2024) Active Problems Problem Noted Date Diagnosed Date Closed wedge compression fracture of T6 vertebra 05/27/2023 Cognitive change 10/26/2022 At risk for falls 10/26/2022 JUSTIN (generalized anxiety disorder) 10/26/2022 Coronary artery disease invo lving [place] coronary artery of [place] heart without angina pectoris 12/15/2021 Diastolic dysfunction [...] as of this encounter (statuses as of 03/25/2024) Resolved Problems Problem Noted Date Diagnosed Date Resolved Date Encounter for examination fo r normal comparison and control in clinical research program 10/12/2018 03/13/2020 Overview: DO NOT DELETE [facility] DETECT Study: Project # [id number], Street Car Inspector: Israel Acevedo, PhD. SUMMARY: Goal: Establish [...] contact study staff at ; after hours Street Car Inspector via the [facility] calender machine operator helper . Please contact study team before resolving/deleting from patients problem list. Study phone number: [phone]. Diagnosis changed due to Research Module. Go to [employer] for study details. Encounter for examination fo r normal comparison and control in clinical research program 10/12/2018 04/11/2022 Overview: DO NOT DELETE - [facility] DETECT Study: Project # [id number], Street Car Inspector: Andi White, MS, MPH. SUMMARY: Goal: [...] contact study staff at ; after hours Street Car Inspector via the [facility] calender machine operator helper . - Please contact study team before resolving/deleting from patients problem list. Study phone number: [phone]. Diagnosis changed due to Research Module. Go to [employer] for study details. Body mass index (BMI) [...] Overview: Dr. Lawrence Dx per [facility] records. 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 Dermatophytosis of nail 05/24/2003 11/0 08/2010 documented as of this encounter (statuses as of 03/25/2024) Immunizations Name Administration Dates Next Due COVID-19 [...] encounter Miscellaneous Notes * Telephone Encounter - Kiki Hay MD - 12/25/2023 2:31 PM EDT Noted * Telephone Encounter - Alva Barney LPN - 12/25/2023 1:59 PM EDT Admission/Start of Care Admission/Start of Care: Sarahi RAMSEY, Calling from: Ana Admitted to [facility] on 11/04/23 for a fall. Discharged 11/07/23 To [facility] for rehab Patient was Admitted to: [facility] , for: falls from 11/06 to 12/24/23 Referral ordered by: [facility] Referral received for: Longterm, PT, and OT Planned start of care date:Yes, Date 12/25/23 Start of care completed on: 12/25/23 Report/Concerns of:Fall Symptoms: none Vitals: T 98.9 P 83 RR 18 BP 130/62 SP O2 96 room air Lung sounds clear Weight unable to get. Blood sugar n/a Narrative: Sarahi calling from [facility]. Patient was coming back from the bathroom with her walker. She turned to sit in the recliner and fell. Used her health alert necklace to call EMS. They checked her out. Got her up. Patient refused to goto the ER. No bruising seen. No injury. She did bump her head off the floor. Pupils are equal and reactive. Noneurological deficit noted. Has one to two plus pedal and leg edema. Legs are pinkish in color. No cellulitis noted. EMS said they are there many times a month. They know her by name. Next PT visit(s) on 12/26/23 They will call with any updates or additional concerns from the upcoming HH visit. Last Office Visit: 10/28/2023 Has patient been scheduled or seen in the office for a follow up visit: Yes- on12/29/23 Advised that orders will be signed by Dr. Hay and to fax to the office for signature. Call back Sarahi with advice or orders at [phone] Please fax orders to [phone] * Telephone Encounter - Shani Alvarez OSA - 12/25/2023 1:57 PM EDT Reason for patient's call: Kya siu/[employer] is calling to give a report Caller was transferred to Alva at the nurse line. documented in this encounter Plan of Treatment Upcoming Encounters Date Type Department Care Team (Late st Contact Info) Description 04/16/2024 4:20 PM EDT Office Visit Neurology [facility] [address] [facility] [place] [address] Loren Rudolph MD [address] [facility] [place] [address] 04/30/2024 2:00 PM EDT Office Visit General Internal Medicine [facility] [address] [facility] [place] [address] [address] Kiki Hay MD [address] [facility] [place] [address] Scheduled Procedures Name Priority Associated Diagnoses Date/Ti me COLONOSCOPY FLEXIBLE PROXIMA L DIAGNOSTIC Recall Encounter for screening colonoscopy Health Maintenance Due Date Last Done Comments Cologuard 10/16/1996 Fecal Occult Blood Test 10/16/1996 Sigmoidoscopy 10/16/1996 Adult Wellness Visit 02/09/2022 02/09/2021 Depression Screening 02/09/2022 02/09/2021 COVID-19 Vaccine ( season) 2023 11/09/2020, 10/19/2020 Influenza Vaccine (FLU shot) (#1) 2024 05/08/2023, 05/07/2022, 11/08/2021, Additional history exists TSH 06/04/2024 06/04/2023, 04/12, 02/05/2023, Additional history exists Mammogram 07/15/2024 07/15/2023, 12/2022, 05/24/2022, Additional history exists Colonoscopy 06/02/2028 06/02/2018, 05/30/2008 Colorectal Cancer Screening 06/02/2028 DXA Scan 05/20/2030 05/20/2023, 05/11, 03/04/2017, Additional history exists DTaP,Tdap,and Td Vaccines (3 - Td or Tdap) 02/28/2031 02/28/2021, 03/28/2008, 08/11/1990, Additional history exists Pneumococcal Vaccine: 65+ Years Completed 03/08/2019, 02/26/2017 Zoster Vaccines Completed 04/28/2020, 01/10, 05/01/2012 HPV (Gardasil) Vaccine Aged Out No lo nger eligible based on patient's age to complete this topic Hepatitis B Vaccine Aged Out No longe r eligible based on patient's age to complete this topic MENINGOCOCCAL (MENACTRA/MENVEO) Aged Out No longer eligible based on patient's age to complete this topic documented as of this encounter Medical Devices Implanted Type Area Area Attendant Device Identifier Shelf Expiration Date Model / Serial / Lot Envista Hydrophobic Acrylic Intraocular Lens Implanted:Qty: 1 on 04/10/2022 by Gregory Nagel DO at OR [facility] Left: Eye [employer] 12/09/2023 [id number] / [id number] / [id number] Envista Intraocular Lens Implanted:Qty: 1 on 06/05/2022 by Gregory Nagel, DO at OR [facility] Right: Eye [employer] 07/10/2024 [id number] / [id number] / [id number] documented as of this encounter Advance Directives * Full Code [...] Directives occurred with: Not Discussed Care Teams Wood Shop Teacher Relationship Specialty Start Date End Date Kiki Hay MD [address] [facility] [place], [place] [address] PCP - General Internal Medicine 07/29/21 documented as of this encounter
--- OUTSIDE RECORDS SUMMARY | 2024-07-18 21:52 | External Medical Summary | Summary of Care ---
Author Name Unknown Organization [facility] Address [address] [place] [address] Phone [phone] Care Team Providers Care Wordpress Developer Name Role Phone Kiki Hay MD Primary Care Provider [phone] Reason for Visit * Reason Onset Date Comments Medication Question 03/16/2024 Encounter Details Date Type Department Care Team (Late st Contact Info) Description 03/16/2024 Telephone OR [facility], Operating Room [facility] [address] [facility] [place] [address] Kiki Hay MD [address] [facility] [address] Medication Question Allergies Active Allergy Reactions Criticality Noted Date Comments Acetaminophen-Codeine Other (Please comment) 12/02/2013 Patient reports Tylenol #3 caused increased seizure activity Amoxicillin 04/20/1999 rash, nausea Codeine 07/26/2021 Other reaction(s): Unknown documented as of this encounter (statuses as of 03/16/2024) Medications Medication Sig Dispensed Refills Start Date End Date Status Acetaminophen 500 MG Oral Tablet Take 1 Tablet by mouth every 6 hours as needed for Pain. Active MEDICAL INSTRUCTIONS Stairlift needed for Sintia LEONARDO Shah 1950. [place] Customer Number: [id number] 1 Each 1 05/21/2021 Active Multivitamin Adult [...] MOUTH TWICE DAILY 540 Tablet 02/17/2024 Active Sulfamethoxazole-Tr imethoprim 800-160 MG Oral Tablet (Bactrim DS)Indications:Susp ected UTI Take 1 Tablet by mouth in the morning and 1 Tablet before bedtime. 6 Tablet 02/24/2024 Active Levothyroxine Sodium 75 MCG Oral Tablet (Levoxyl) TAKE 1 TABLET BY MOUTH ONCE DAILY IN THE MORNING 30 MINUTES BEFORE BREAKFAST OR OTHER MEDICATIONS 90 Tablet 1 02/28/2024 Active levETIRAcetam 750 MG Oral Tablet Take 1 Tablet by mouth in the morning and 1 Tablet before bedtime. 180 Tablet 1 03/03/2024 Active documented as of this encounter (statuses as of 03/16/2024) Active Problems Problem Noted Date Diagnosed Date Closed wedge compression fracture of T6 vertebra 05/27/2023 Cognitive change 10/26/2022 At risk for falls 10/26/2022 JUSTIN (generalized anxiety disorder) 10/26/2022 Coronary artery disease invo lving [place] coronary artery of [place] heart without angina pectoris 12/15/2021 Diastolic dysfunction [...] as of this encounter (statuses as of 03/16/2024) Resolved Problems Problem Noted Date Diagnosed Date Resolved Date Encounter for examination fo r normal comparison and control in clinical research program 10/12/2018 03/13/2020 Overview: DO NOT DELETE [facility] DETECT Study: Project # [id number], Piercing Mill Operator: Israel Acevedo, PhD. SUMMARY: Goal: Establish test [...] contact study staff at ; after hours Piercing Mill Operator via the [facility] chucking machine operator . Please contact study team before resolving/deleting from patients problem list. Study phone number: [phone]. Diagnosis changed due to Research Module. Go to [employer] for study details. Encounter for examination fo r normal comparison and control in clinical research program 10/12/2018 04/11/2022 Overview: DO NOT DELETE - [facility] Study: Project # [id number], Piercing Mill Operator: Andi White, MS, MPH. SUMMARY: Goal: Establish [...] contact study staff at ; after hours Piercing Mill Operator via the [facility] chucking machine operator . - Please contact study team before resolving/deleting from patients problem list. Study phone number: [phone]. Diagnosis changed due to Research Module. Go [...] Overview: Dr. Lawrence Dx per [facility] records. 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 Dermatophytosis of nail 05/24/2003/0 08/2010 documented as of this encounter (statuses as of 03/16/2024) Immunizations Name Administration Dates Next Due COVID-19 mRNA, LNP-s, No Pre serve, 2-Dose Series (Cellumen) 11/09/2020,10/19/2020 Pneumococcal Conjugate Vacc, 13 Valent (Prevnar) [...] Telephone Encounter - Kiki Hay MD - 03/16/2024 12:29 PM EDT Noted * Telephone Encounter - Alysia Walker RN - 03/16/2024 9:39 AM EDT Pt calling PAT office. She needs her levothyroxine rx filled. Looks like this was refilled 02/28/24 and was sent to [facility]. Encouraged pt to contact [facility]. If they don't have it, she can call me back and I will send rx request to PCP. documented in this encounter Plan of Treatment Upcoming Encounters Date Type Department Care Team (Late st Contact Info) Description 04/16/2024 4:20 PM EDT Office Visit Neurology [facility] [address] [facility] [place] [address] Loren Rudolph MD [address] [facility] [place] [address] 04/30/2024 2:00 PM EDT Office Visit General Internal Medicine [facility] [address] [facility] [place] [address] Kiki Hay MD [address] [place] [address] Scheduled Procedures Name Priority Associated Diagnoses Date/Ti [...] this encounter Medical Devices Implanted Type Area Credit Analyst Device Identifier Shelf Expiration Date Model / Serial / Lot Envista Hydrophobic Acrylic Intraocular Lens Implanted:Qty: 1 on 04/10/2022 by Gregory Nagel DO at OR [facility] Left: Eye [employer] 12/09/2023 [id number] / [id number] / [id number] Envista Intraocular Lens Implanted:Qty: 1 on 06/05/2022 by Gregory Nagel DO at OR [facility] Right: Eye [employer]OM[employer] 07/10/2024 [id number] / [id number] / [id number] documented as of this encounter Advance Directives [...] Directives occurred with: Not Discussed Care Teams Wordpress Developer Relationship Specialty Start Date End Date Kiki Hay MD [address] [place] [address] PCP - General Internal Medicine 07/29/21 documented as of this encounter
--- OUTSIDE RECORDS SUMMARY | 2024-07-18 21:52 | External Medical Summary | Summary of Care ---
Author Name Unknown Organization [facility] Address [address] [place] [address] Phone [phone] Care Team Providers Care Cook Fruit Name Role Phone Kiki Hay MD Primary Care Provider [phone] Encounter Details Date Type Department Care Team (Late st Contact Info) Description 03/28/2024 Result Scan Unspecified Department Loren Cerrato Hailey, DO [address] [facility] [id number] <No scans attached> Allergies Active Allergy Reactions Criticality Noted Date Comments Acetaminophen-Codeine Other (Please comment) 12/02/2013 Patient reports Tylenol #3 caused increased seizure activity Amoxicillin 04/20/1999 rash, nausea Codeine 07/26/2021 Other reaction(s): Unknown documented as of this encounter (statuses as of 03/28/2024) Medications Medication Sig Dispensed Refills Start Date End Date Status Acetaminophen 500 MG Oral Tablet Take 1 Tablet by mouth every 6 hours as needed for Pain. Active MEDICAL INSTRUCTIONS Stairlift needed for Sintia LEONARDO Shah 1950. Victoria Vera Customer Number: [phone] 1 Each 1 05/21/2021 Active Multivitamin Adult [...] as of this encounter (statuses as of 03/28/2024) Active Problems Problem Noted Date Diagnosed Date Closed wedge compression fracture of T6 vertebra 05/27/2023 Cognitive change 10/26/2022 At risk for falls 10/26/2022 JUSTIN (generalized anxiety disorder) 10/26/2022 Coronary artery disease invo lving quinault coronary artery of quinault heart without angina pectoris 12/15/2021 Diastolic dysfunction [...] as of this encounter (statuses as of 03/28/2024) Resolved Problems Problem Noted Date Diagnosed Date Resolved Date Encounter for examination fo r normal comparison and control in clinical research program 10/12/2018 03/13/2020 Overview: DO NOT DELETE [facility] DETECT Study: Project # [id number], Restaurant Crew Member: Israel Acevedo, PhD. SUMMARY: Goal: Establish test [...] contact study staff at ; after hours Restaurant Crew Member via the [facility] refrigerating machine operator . Please contact study team before resolving/deleting from patients problem list. Study phone number: [phone]. Diagnosis changed due to Research Module. Go to Snapshot for study details. Encounter for examination fo r normal comparison and control in clinical research program 10/12/2018 04/11/2022 Overview: DO NOT DELETE - [facility] Study: Project # [id number], Restaurant Crew Member: Andi White, MS, MPH. SUMMARY: Goal: Establish [...] contact study staff at ; after hours Restaurant Crew Member via the [facility] refrigerating machine operator . - Please contact study team before resolving/deleting from patients problem list. Study phone number: [phone]. Diagnosis changed due to Research Module. Go [...] 09/06/2009 09/03/2017 Overview: Dr. Lawrence Dx per [facility] records. 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 Dermatophytosis of nail 05/24/2003 11/0 08/2010 documented as of this encounter (statuses as of 03/28/2024) Immunizations Name Administration Dates Next Due COVID-19 [...] 04/16/2024 4:20 PM EDT Office Visit Neurology [facility] [place] [address] [place] [id number] Loren Rudolph MD [address] [place] [id number] 04/30/2024 2:00 PM EDT Office Visit General Internal Medicine [facility] [address] [place] [id number] Kiki Hay MD [address] [place] [id number] Scheduled Procedures Name Priority Associated Diagnoses Date/Ti [...] this encounter Medical Devices Implanted Type Area Plant Electrical Engineer Device Identifier Shelf Expiration Date Model / Serial / Lot Envista Hydrophobic Acrylic Intraocular Lens Implanted:Qty: 1 on 04/10/2022 by Gregory Nagel DO at OR [facility] Left: Eye [employer] 12/09/2023 [id number] / [id number] / [id number] Envista Intraocular Lens Implanted:Qty: 1 on 06/05/2022 by Gregory Nagel DO at OR [facility] Right: Eye [employer] 07/10/2024 [id number] / [id number] / [id number] documented as of this encounter Procedures Procedure Name Priority Date/Time Associated Diagnosis Comments CARDIOLOGY SCANNED RESULT 03/28/2024 documented in this encounter Results * CARDIOLOGY SCANNED RESULT (03/28/2024) 03/28/2024 Loren Hart Blossom TOLLIVER OTHER documented in this encounter Advance Directives * [...] Directives occurred with: Not Discussed Care Teams Cook Fruit Relationship Specialty Start Date End Date Kiki Hay MD [address] [facility] [place] [address] PCP - General Internal Medicine 07/29/21 documented as of this encounter
[2024-07-19 08:33] LABS: Calcium 8.8 mg/dl (8.6-10.3); Creatinine Clr Calc Pharmacy 149.3 ml/min; Magnesium 1.7 mg/dl (1.7-2.4); Phosphorus 3.2 mg/dl (2.5-4.9); Potassium 3.8 mmol/L (3.5-5.1)
[2024-07-19 08:35] LABS: Hemoglobin 13.7 g/dl (12.0-16.0); Mean Corpuscular Hemoglobin 32.5 pg (25.0-34.0); Mean Corpuscular Hgb Conc 35.1 g/dL (32.0-36.0); Mean Corpuscular Volume 92.4 fL (80.0-100.0); Platelet Count 215 K/uL (130-400); RDW Coefficient of Variation 12.4 % (11.5-14.5); RDW Standard Deviation 42.2 fL (36.4-46.3); Red Blood Count 4.22 M/uL (4.20-5.40); White Blood Count 4.75 K/ul (4.8-10.8)
--- NOTE | 2024-07-19 13:09 | Discharge Summary ---
Date of Service July 19, 2024 Admission HPI Per Admitting Provider 73-year-old female with past medical history significant for nontoxic multinodular goiter, hypothyroidism, nocturnal hypoxemia, obstructive sleep apnea, venous insufficiency, diastolic dysfunction, history of CAD, B12 deficiency, lumbar disc disease, epilepsy, syncope, history of PE and DVT, cognitive change, high risk of falls, general anxiety disorder who lives at home with her comes because of fall and also found to have UTI. Patient states she ambulates with a walker. She has a lift chair which patient states that it elevates her so she can stand up. When she was walking with her walker to her lift chair she got somewhat confused and fell on her left side and hit her head. No loss of consciousness. She says when she falls she cannot get up. She was brought in here and imaging studies were okay. But in the ER when she was trying to ambulate her legs were very weak and she could not ambulate. Currently resting comfortably. Hemodynamics are okay. Somewhat hard of hearing. She said she had a headache earlier but resolved now. She had nausea earlier but that improved. Denies any runny nose or sore throat. No fevers. No cough. No chest pain or shortness of. No abdominal pain. States somewhat constipated. Denies blood in stool or black stools. Denies any hematuria. Denies any burning micturition. Appetite is okay. Past medical history. As mentioned above Past surgical history. Subcutaneous tumor removed from the back. Colonoscopy. Tubal ligation. Lumbar kyphoplasty. Tonsillectomy. Bilateral cataracts. Social history. . No smoking. No alcohol use. No drug use. Family history. Mother had colon cancer. Dementia. Father had emphysema. Daughter had cervical cancer. Daughter had thyroid cancer. Admission Exam Per Admitting Provider General- Not in distress Head- atraumatic Eyes- PERRL. ENT- oropharynx clear Neck- supple, no JVD. Lungs- clear to auscultation no wheezing or crackles Heart- regular rate and rhythm; no murmur, no gallop. Abdomen- normal bowel sounds, soft, nontender, no distension Extremities- pretibial edema seen, no erythema seen Neuro- alert, oriented ; PERRL, no facial palsy; no dysarthria; moves extremities. Principal Diagnosis Fall UTI Discharge Exam General- obese elderly F Not in distress Head- atraumatic Eyes- PERRL. Neck- supple Lungs- clear to auscultation no wheezing or crackles Heart- regular rate and rhythm; no murmur Abdomen- normal bowel sounds, soft, nontender, no distension Extremities- pretibial edema seen, no erythema seen Neuro- alert, oriented ; PERRL, no facial palsy; no dysarthria; moves extremities. Discharge Data Allergies Allergy/AdvReac Type Severity Reaction Status Date / Time amoxicillin Allergy Intermediate Rash Verified 01/10/24 09:48 codeine Allergy Intermediate Rash Verified 01/10/24 09:48 Consultations 07/16/24 21:00 ED Decision to Admit Stat Ordered Studies 07/16/24 16:56 CT head/brain wo con Stat IMPRESSION: Cerebral atrophy. No acute changes. Hospital Course (1) Fall: 73-year-old female with past medical history significant for nontoxic multinodular goiter, hypothyroidism, nocturnal hypoxemia, obstructive sleep apnea, venous insufficiency, diastolic dysfunction, history of CAD, B12 deficiency, lumbar disc disease, epilepsy, syncope, history of PE and DVT, cognitive change, high risk of falls, general anxiety disorder who lives at home with her comes because of fall and also found to have UTI. Patient states she ambulates with a walker. She has a lift chair which patient states that it elevates her so she can stand up. When she was walking with her walker to her lift chair she got somewhat confused and fell on her left side and hit her head. No loss of consciousness. She says when she falls she cannot get up. She was brought in here and imaging studies were okay. But in the ER when she was trying to ambulate her legs were very weak and she could not ambulate. Currently resting comfortably. Hemodynamics are okay. Somewhat hard of hearing. She said she had a headache earlier but resolved now. She had nausea earlier but that improved. Denies any runny nose or sore throat. No fevers. No cough. No chest pain or shortness of. No abdominal pain. States somewhat constipated. Denies blood in stool or black stools. Denies any hematuria. Denies any burning micturition. Appetite is okay. Fall Weakness Ambulatory dysfunction Imaging studies okay PT OT - recommend rehab UTI Possibly contributing Empiric Rocephin Will follow cultures - multiple organisms - repeat UA clean finish abx treatment w/ po abx on DC Hypothyroidism On Synthyroid TSH 2.6 wnl Epilepsy On Keppra and divalproex and oxcarbazepine and gabapentin Total Time Total Time Spent Total Time Spent (In Minutes): 40 Discharge Plan Discharge Items Patient Disposition: Transfer Inpatient Rehab Fac Reason For Visit: FALL, UTI Discharge Diagnosis: Fall UTI Activity: Per Instructions section Non-emergency contact: Primary Care Provider Call non-emergency contact if: you have any medication questions and your symptoms worsen Follow-up/Referrals: Kiki Hay MD [Primary Care Provider] - Diet: Heart Healthy Diet Texture: Easy to Chew Addtl Attending Provider Instructions: Follow up with primary care physician within 1 week. Finish antibiotic treatment as prescribed. Pending Studies at Discharge: No Stand-Alone Forms: [employer] [facility] [place] [employer] Skilled Items Patient informed of condition?: Yes DNR: No Discharge Level of Care: Acute rehab Communicable Disease: No Discharge Prognosis: Stable Lines: None Medications and DC Order Prescriptions: New cefuroxime axetil 250 mg tablet 250 mg PO BID 5 Days Qty: 10 0RF magnesium oxide 400 mg (241.3 mg magnesium) Tablet 400 mg PO BID 5 Days Qty: 10 0RF Continued oxcarbazepine 150 mg tablet 450 mg PO BID acetaminophen [Tylenol Extra Strength] 500 mg Tablet 500 mg PO Q6H PRN (Reason: Pain) levothyroxine [Euthyrox] 75 mcg tablet 75 mcg PO DAILYBB divalproex 500 mg tablet extended release 24 hr 1,000 mg PO HS gabapentin 300 mg capsule 300 mg PO AMPM cyanocobalamin (vitamin B-12) [Vitamin B-12] 1,000 mcg Tablet 1,000 mcg PO QAM cranberry 500 mg Capsule 1,000 mg PO BID Rx Instructions: administer with meals calcium citrate-vitamin D3 315 mg-5 mcg (200 unit) Tablet 1 tab PO QAM levetiracetam 750 mg tablet 750 mg PO AMHS Discharge Orders: Discharge Order (Routine); Ordered 07/19/24 Ordered By: Cristo An Admission Data Admit Date/Time: 07/16/24 22:18 Attending Provider: Cristo An Admit Provider: Dakota Garcia Primary Care Provider: Kiki Hay Other Providers: Dakota Garcia; [facility]
[2024-07-19 15:00] VITALS: TEMP 97.9; O2SAT 93
[2024-07-19] MEDS: ADVANCED PROBIOTIC 625 MG CAPSULE PO SCH (15:05)
[2024-07-19 16:49] VITALS: BP 104/67; PULSE 68
== END 2024-07-19 18:04 | DRG 92 ==
LOC: ED 16:20 → 3W 22:18